=== PATIENT | female | born 1975 | race Caucasian/White ===

== ENCOUNTER → 2017-06-09 09:17 | Outpatient (CLI) | payer OTHER, SELFPAY ==
[2017-06-09 09:36] LABS: Red Blood Cells-Urine 0 SEEN /hpf (0-5)
[2017-06-09 09:50] LABS: Absolute Lymphocyte Count 2.37 X10^3/ul (0.83-4.51); Basophil# 0.04 X10^3/uL; Basophil% 0.6 % (0-1); Eosinophil# 0.11 X10^3/uL; Eosinophils% 1.8 % (0-5); Hematocrit 40.2 % (37-47); Hemoglobin 13.5 g/dl (12.0-15.0); Lymphocyte # 2.37 X10^3/ul (4.0); Lymphocyte % 38.5 % (19-41); Mean Corp Hgb Conc 33.6 g/gl (32-36); Mean Corpuscular Hgb 30.5 pg (27.0-32.0); Mean Corpuscular Volume 90.7 fL (81-99); Mean Platelet Vol. 10.5 fl (6.2-12.0); Monocyte# 0.65 X10^3/uL; Monocyte% 10.6 % (0-10); Neutrophil # 2.95 X10^3/uL (2.7-7.7); Neutrophil % 47.9 % (47-70); Platelet Count 283 K/mm3 (150-450); RBC Distribution Width CV 12.3 % (11.6-14.6); RBC Distribution Width SD 40.5 fl (35.1-43.9); Red Blood Count 4.43 M/mm3 (4.2-5.4); White Blood Count 6.2 K/mm3 (4.4-11.0)
[2017-06-09 10:03] LABS: POSITIVE COUNT NO; POSITIVE DIFFERENTIAL NO; POSITIVE MORPHOLOGY NO
[2017-06-09 10:34] LABS: ALB/GLOB Ratio 1.2 RATIO (0.9-2.4); AST(SGOT) 11 U/L (15-37); Alanine Aminotransfer ALT/SGPT 16 U/L (13-56); Albumin, Serum 4.3 g/dL (3.2-5.0); Alkaline Phosphatase 65 U/L (45-117); Anion Gap 7 (5-15); BUN 13 mg/dL (7-18); BUN/Creat Ratio 16.1 RATIO (10-20); CRP < 2.90 mg/L (0.0-3.0); Calcium,Total 8.8 mg/dL (8.5-10.1); Chloride 105 mmol/L (98-107); Creatinine, Serum 0.81 mg/dL (0.55-1.02); EST Glomerular Filtration Rate 82 mL/min (>60); Est Glom Filt Rate - Afr Amer 99 mL/min (>60); Globulin 3.7 g/dL (2.2-4.2); Glucose 65 mg/dL (74-106); Potassium 3.8 mmol/L (3.5-5.1); Sodium Level 140 mmol/L (136-145)
[2017-06-09 11:26] LABS: Color, Urine Yellow (Yellow); Glucose, Dipstick Normal (Normal); Ketone-Dipstick Negative (Negative); Leukocyte Esterase-Dipstick 25 /ul (Negative); Nitrite-Dipstick Negative (Negative); Occult Blood-Urine Negative /ul (Negative); Protein-Dipstick Negative (Negative); Specific Gravity, Urine 1.025 (1.002-1.030); Urine Bilirubin Dipstick Negative (Negative); Urine Clarity Clear (Clear); Urine Urobilinogen Normal (Normal)
[2017-06-09 11:32] LABS: Bacteria 1+ /hpf (None Seen); Mucous, Urine 3+ /hpf (<or=2+); Squamous Epithelial Cells - UA 5-10 SEEN /hpf (5-10); White Blood Cells 0-5 SEEN /hpf (0-5)
[2017-06-10 12:07] LABS: Complement C3 109 mg/dL (82-167)
== END ==
PROVIDERS: Psychiatry & Neurology Sleep Medicine; Family Provider Internal Medicine Adolescent Medicine; PCP Internal Medicine Adolescent Medicine; Visit Provider Internal Medicine Rheumatology
DX: M35.1 Other overlap syndromes (principal); G35 Multiple sclerosis
CPT/HCPCS: 80053; 81001; 85025; 86140; 86160

== ENCOUNTER → 2017-08-04 15:30 | Outpatient (CLI) | payer OTHER, SELFPAY ==
--- NOTE | 2017-08-04 15:40 | MRI_ITS ---
STUDY: MRI BRAIN WITH AND WITHOUT CONTRAST REASON FOR EXAM: Female, 42 years old. Multiple sclerosis TECHNIQUE: Standardized multiplanar fat and water weighted pulse sequences were obtained. 6ml ml of Gadavist contrast material was administered intravenously for the contrast portion of the examination. COMPARISON: January 13, 2017 FINDINGS: Normal size of the ventricles and extra-axial spaces for the patient's age. There is very minor increased signal intensity within the periventricular white matter in the frontal and parieto-occipital regions with involvement of the corpus callosum consistent with multiple sclerosis... Normal bilateral basal ganglia. Normal thalami. There is no extra-axial fluid accumulation. Normal flow voids within the major intracranial circulation suggesting patency by spin echo criteria. Normal venous enhancement. There is no enhancing intra-axial or extra-axial abnormality. Normal sella turcica, pituitary gland, infundibular stalk, optic chiasm and hypothalamus. Normal tectal plate and pineal gland. Normal midbrain, edie and medulla. Normal cerebellum. Normal basal cisterns. Normal bilateral temporal bones. Normal bilateral internal auditory canals. No demonstrated orbital abnormality, within the constraints of a routine brain study. Normal visualized paranasal sinuses. Normal calvarium and skull base. Normal visualized soft tissue structures. Normal visualized upper cervical spine. Findings are stable since prior study MRI/Brain W/WO Contrast IMPRESSION: Findings which may be consistent with mild multiple sclerosis without evidence for actively demyelinating plaque and stable since previous study Electronically Signed: Wesley Bello MD at 17:12 EDT , Service support ,
== END ==
PROVIDERS: Family Provider Internal Medicine Adolescent Medicine; PCP Internal Medicine Adolescent Medicine; Visit Provider Psychiatry & Neurology Sleep Medicine
DX: G35 Multiple sclerosis (principal)
CPT/HCPCS: 70553; A9585

== ENCOUNTER → 2017-09-25 11:29 | Outpatient (CLI) | payer OTHER, SELFPAY ==
[2017-09-25 13:34] LABS: Absolute Lymphocyte Count 2.33 X10^3/ul (0.83-4.51); Absolute Neutrophil Count 3.9 X10^3/uL (2.0-7.7); Basophil# 0.03 X10^3/uL; Basophil% 0.4 % (0-1); Eosinophil# 0.11 X10^3/uL; Eosinophils% 1.5 % (0-5); Hematocrit 39.5 % (37-47); Hemoglobin 13.5 g/dl (12.0-15.0); Lymphocyte # 2.33 X10^3/ul (4.0); Lymphocyte % 32.4 % (19-41); Mean Corp Hgb Conc 34.2 g/gl (32-36); Mean Corpuscular Volume 90.8 fL (81-99); Mean Platelet Vol. 10.2 fl (6.2-12.0); Monocyte# 0.79 X10^3/uL; Neutrophil # 3.87 X10^3/uL (2.7-7.7); Neutrophil % 53.9 % (47-70); Platelet Count 284 K/mm3 (150-450); RBC Distribution Width CV 12.3 % (11.6-14.6); RBC Distribution Width SD 40.8 fl (35.1-43.9); Red Blood Count 4.35 M/mm3 (4.2-5.4); White Blood Count 7.2 K/mm3 (4.4-11.0)
[2017-09-25 13:35] LABS: POSITIVE COUNT NO; POSITIVE DIFFERENTIAL NO; POSITIVE MORPHOLOGY NO
[2017-09-25 13:59] LABS: ALB/GLOB Ratio 1.1 RATIO (0.9-2.4); AST(SGOT) 12 U/L (15-37); Alanine Aminotransfer ALT/SGPT 18 U/L (13-56); Albumin, Serum 4.2 g/dL (3.2-5.0); Alkaline Phosphatase 67 U/L (45-117); Anion Gap 8 (5-15); BUN 15 mg/dL (7-18); BUN/Creat Ratio 19.2 RATIO (10-20); Calcium,Total 8.3 mg/dL (8.5-10.1); Chloride 105 mmol/L (98-107); Creatinine, Serum 0.78 mg/dL (0.55-1.02); EST Glomerular Filtration Rate 85 mL/min (>60); Est Glom Filt Rate - Afr Amer 103 mL/min (>60); Globulin 3.7 g/dL (2.2-4.2); Glucose 72 mg/dL (74-106); Potassium 3.6 mmol/L (3.5-5.1); Protein, Total 7.9 g/dL (6.4-8.2); Sodium Level 141 mmol/L (136-145)
== END ==
PROVIDERS: Family Provider Internal Medicine Adolescent Medicine; PCP Internal Medicine Adolescent Medicine; Visit Provider Psychiatry & Neurology Sleep Medicine
DX: G35 Multiple sclerosis (principal)
CPT/HCPCS: 36415; 80053; 85025

== ENCOUNTER → 2018-01-13 08:13 | Outpatient (CLI) | payer OTHER, SELFPAY ==
[2018-01-13 09:12] LABS: Absolute Lymphocyte Count 2.16 X10^3/ul (0.83-4.51); Absolute Neutrophil Count 2.5 X10^3/uL (2.0-7.7); Basophil# 0.03 X10^3/uL; Basophil% 0.5 % (0-1); Eosinophil# 0.18 X10^3/uL; Eosinophils% 3.1 % (0-5); Hematocrit 41.3 % (37-47); Hemoglobin 13.8 g/dl (12.0-15.0); Lymphocyte # 2.16 X10^3/ul (4.0); Lymphocyte % 37.7 % (19-41); Mean Corp Hgb Conc 33.4 g/gl (32-36); Mean Corpuscular Hgb 30.7 pg (27.0-32.0); Mean Corpuscular Volume 91.8 fL (81-99); Mean Platelet Vol. 10.2 fl (6.2-12.0); Neutrophil # 2.52 X10^3/uL (2.7-7.7); Platelet Count 284 K/mm3 (150-450); RBC Distribution Width CV 12.5 % (11.6-14.6); RBC Distribution Width SD 42.1 fl (35.1-43.9); White Blood Count 5.7 K/mm3 (4.4-11.0)
[2018-01-13 09:14] LABS: POSITIVE COUNT NO; POSITIVE DIFFERENTIAL NO; POSITIVE MORPHOLOGY NO
[2018-01-13 09:19] LABS: ALB/GLOB Ratio 1.1 RATIO (0.9-2.4); AST(SGOT) 13 U/L (15-37); Alanine Aminotransfer ALT/SGPT 17 U/L (13-56); Alkaline Phosphatase 58 U/L (45-117); Anion Gap 6 (5-15); BUN 15 mg/dL (7-18); BUN/Creat Ratio 18.3 RATIO (10-20); Calcium,Total 8.9 mg/dL (8.5-10.1); Chloride 106 mmol/L (98-107); Creatinine, Serum 0.82 mg/dL (0.55-1.02); EST Glomerular Filtration Rate 80 mL/min (>60); Est Glom Filt Rate - Afr Amer 97 mL/min (>60); Globulin 3.5 g/dL (2.2-4.2); Glucose 77 mg/dL (74-106); Protein, Total 7.5 g/dL (6.4-8.2); Sodium Level 139 mmol/L (136-145)
== END ==
PROVIDERS: Family Provider Internal Medicine Adolescent Medicine; PCP Internal Medicine Adolescent Medicine; Visit Provider Psychiatry & Neurology Sleep Medicine
DX: G35 Multiple sclerosis (principal)
CPT/HCPCS: 36415; 80053; 85025

== ENCOUNTER → 2018-01-24 15:35 | Outpatient (CLI) | payer OTHER, SELFPAY ==
--- NOTE | 2018-01-24 15:37 | MRI_ITS ---
STUDY: MRI BRAIN WITH AND WITHOUT CONTRAST REASON FOR EXAM: Female, 42 years old. Multiple sclerosis TECHNIQUE: Standardized multiplanar fat and water weighted pulse sequences were obtained. 6 ml of Gadavist contrast material was administered intravenously for the contrast portion of the examination. COMPARISON: August 04, 2017 FINDINGS: Normal size of the ventricles and extra-axial spaces for the patient's age. There is subtle demyelinating disease within the periventricular white matter consistent with known multiple sclerosis. There are no enhancing plaques to suggest acute demyelination Normal bilateral basal ganglia. Normal thalami. There is no extra-axial fluid accumulation. Normal flow voids within the major intracranial circulation suggesting patency by spin echo criteria. Normal venous enhancement. Normal sella turcica, pituitary gland, infundibular stalk, optic chiasm and hypothalamus. Normal tectal plate and pineal gland. Normal midbrain, edie and medulla. Normal cerebellum. Normal basal cisterns. Normal bilateral temporal bones. Normal bilateral internal auditory canals. No demonstrated orbital abnormality, within the constraints of a routine brain study. Normal visualized paranasal sinuses. Normal calvarium and skull base. Normal visualized soft tissue structures. Normal visualized upper cervical spine. Findings are stable when compared with prior exam MRI/Brain W/WO Contrast IMPRESSION: Minor white matter changes consistent with multiple sclerosis which is stable since prior exam No enhancing plaque to suggest acute demyelination Electronically Signed: Wesley Bello MD at 17:40 EDT , Service support ,
== END ==
PROVIDERS: Family Provider Internal Medicine Adolescent Medicine; PCP Internal Medicine Adolescent Medicine; Referring Provider Psychiatry & Neurology Sleep Medicine; Visit Provider Psychiatry & Neurology Sleep Medicine
DX: G35 Multiple sclerosis (principal)
CPT/HCPCS: 70553; A9585

== ENCOUNTER → 2018-03-18 16:08 | Outpatient (CLI) | payer OTHER, SELFPAY ==
[2018-03-24 16:07] LABS: HPV Reflexed? NOT INDICATED
== END ==
PROVIDERS: Visit Provider Obstetrics & Gynecology
DX: Z12.4 Encounter for screening for malignant neoplasm of cervix (principal)
CPT/HCPCS: 88175; G0145

== ENCOUNTER → 2018-04-12 08:58 | Outpatient (CLI) | payer OTHER, SELFPAY ==
[2018-04-12 09:43] LABS: Absolute Lymphocyte Count 2.47 X10^3/ul (0.83-4.51); Absolute Neutrophil Count 2.8 X10^3/uL (2.0-7.7); Basophil# 0.03 X10^3/uL; Basophil% 0.5 % (0-1); Eosinophil# 0.14 X10^3/uL; Eosinophils% 2.2 % (0-5); Hematocrit 39.2 % (37-47); Hemoglobin 12.7 g/dl (12.0-15.0); Lymphocyte # 2.47 X10^3/ul (4.0); Lymphocyte % 39.6 % (19-41); Mean Corp Hgb Conc 32.4 g/gl (32-36); Mean Corpuscular Hgb 29.7 pg (27.0-32.0); Mean Corpuscular Volume 91.6 fL (81-99); Mean Platelet Vol. 9.9 fl (6.2-12.0); Monocyte# 0.75 X10^3/uL; Neutrophil # 2.79 X10^3/uL (2.7-7.7); Neutrophil % 44.7 % (47-70); Platelet Count 282 K/mm3 (150-450); RBC Distribution Width CV 12.8 % (11.6-14.6); RBC Distribution Width SD 42.8 fl (35.1-43.9); Red Blood Count 4.28 M/mm3 (4.2-5.4); White Blood Count 6.2 K/mm3 (4.4-11.0)
[2018-04-12 09:44] LABS: POSITIVE COUNT NO; POSITIVE DIFFERENTIAL NO; POSITIVE MORPHOLOGY NO
[2018-04-12 09:54] LABS: ALB/GLOB Ratio 1.2 RATIO (0.9-2.4); AST(SGOT) 14 U/L (15-37); Alanine Aminotransfer ALT/SGPT 18 U/L (13-56); Alkaline Phosphatase 58 U/L (45-117); Anion Gap 7 (5-15); BUN 11 mg/dL (7-18); BUN/Creat Ratio 13.3 RATIO (10-20); Calcium,Total 8.4 mg/dL (8.5-10.1); Chloride 108 mmol/L (98-107); Creatinine, Serum 0.83 mg/dL (0.55-1.02); EST Glomerular Filtration Rate 79 mL/min (>60); Est Glom Filt Rate - Afr Amer 96 mL/min (>60); Globulin 3.4 g/dL (2.2-4.2); Glucose 79 mg/dL (74-106); Protein, Total 7.4 g/dL (6.4-8.2); Sodium Level 140 mmol/L (136-145)
== END ==
PROVIDERS: PCP Internal Medicine Adolescent Medicine; Visit Provider Psychiatry & Neurology Sleep Medicine
DX: G35 Multiple sclerosis (principal)
CPT/HCPCS: 36415; 80053; 85025

== ENCOUNTER → 2018-07-06 09:00 | Outpatient (CLI) | payer OTHER, SELFPAY ==
[2018-07-06 11:01] LABS: Absolute Lymphocyte Count 2.13 X10^3/ul (0.83-4.51); Absolute Neutrophil Count 2.6 X10^3/uL (2.0-7.7); Basophil# 0.04 X10^3/uL; Basophil% 0.7 % (0-1); Eosinophil# 0.12 X10^3/uL; Eosinophils% 2.1 % (0-5); Hematocrit 37.6 % (37-47); Hemoglobin 12.4 g/dl (12.0-15.0); Lymphocyte # 2.13 X10^3/ul (4.0); Lymphocyte % 37.2 % (19-41); Mean Corpuscular Hgb 30.2 pg (27.0-32.0); Mean Corpuscular Volume 91.7 fL (81-99); Mean Platelet Vol. 10.8 fl (6.2-12.0); Monocyte# 0.83 X10^3/uL; Monocyte% 14.5 % (0-10); Neutrophil # 2.57 X10^3/uL (2.7-7.7); Neutrophil % 44.8 % (47-70); Platelet Count 344 K/mm3 (150-450); RBC Distribution Width CV 13.1 % (11.6-14.6); RBC Distribution Width SD 43.6 fl (35.1-43.9); White Blood Count 5.7 K/mm3 (4.4-11.0)
[2018-07-06 11:02] LABS: POSITIVE COUNT NO; POSITIVE DIFFERENTIAL NO; POSITIVE MORPHOLOGY NO
[2018-07-06 11:11] LABS: ALB/GLOB Ratio 1.3 RATIO (0.9-2.4); AST(SGOT) 15 U/L (15-37); Alanine Aminotransfer ALT/SGPT 17 U/L (13-56); Albumin, Serum 4.1 g/dL (3.2-5.0); Alkaline Phosphatase 64 U/L (45-117); Anion Gap 3 (5-15); BUN 14 mg/dL (7-18); BUN/Creat Ratio 16.6 RATIO (10-20); Calcium,Total 8.3 mg/dL (8.5-10.1); Chloride 111 mmol/L (98-107); Creatinine, Serum 0.84 mg/dL (0.55-1.02); EST Glomerular Filtration Rate 78 mL/min (>60); Est Glom Filt Rate - Afr Amer 94 mL/min (>60); Globulin 3.1 g/dL (2.2-4.2); Glucose 73 mg/dL (74-106); Potassium 3.9 mmol/L (3.5-5.1); Protein, Total 7.2 g/dL (6.4-8.2); Sodium Level 141 mmol/L (136-145)
== END ==
LOC: LABSPEC 09:47 → LAB 09:55
PROVIDERS: Referring Provider Psychiatry & Neurology Sleep Medicine; Visit Provider Psychiatry & Neurology Sleep Medicine
DX: G35 Multiple sclerosis (principal)
CPT/HCPCS: 36415; 80053; 85025

== ENCOUNTER → 2018-07-28 15:31 | Outpatient (CLI) | payer OTHER, SELFPAY ==
--- NOTE | 2018-07-28 15:40 | MRI_ITS ---
STUDY: MRI BRAIN WITH AND WITHOUT CONTRAST REASON FOR EXAM: Female, 43 years old. MS TECHNIQUE: Standardized multiplanar fat and water weighted pulse sequences were obtained. 10 IV Dotarem was administered for the contrast portion of the examination. COMPARISON: 01/24/2018 FINDINGS: Normal size of the ventricles and extra-axial spaces for the patient's age. Stable minimal white matter disease. Normal bilateral basal ganglia. Normal thalami. There is no extra-axial fluid accumulation. Normal flow voids within the major intracranial circulation suggesting patency by spin echo criteria. Normal venous enhancement. There is no enhancing intra-axial or extra-axial abnormality. Normal sella turcica, pituitary gland, infundibular stalk, optic chiasm and hypothalamus. Normal tectal plate and pineal gland. Normal midbrain, edie and medulla. Normal cerebellum. Normal basal cisterns. Normal bilateral temporal bones. Normal bilateral internal auditory canals. No demonstrated orbital abnormality, within the constraints of a routine brain study. Normal visualized paranasal sinuses. Normal calvarium and skull base. Normal visualized soft tissue structures. Normal visualized upper cervical spine. MRI/Brain W/WO Contrast IMPRESSION: Stable minimal white matter disease. No new white matter lesions are seen. No restricted diffusion or abnormal enhancement. Electronically Signed: Anderson Delaney MD at 18:27 EDT Tel , Service support ,
== END ==
PROVIDERS: Family Provider Internal Medicine Adolescent Medicine; PCP Internal Medicine Adolescent Medicine; Referring Provider Psychiatry & Neurology Sleep Medicine; Visit Provider Psychiatry & Neurology Sleep Medicine
DX: G35 Multiple sclerosis (principal)
CPT/HCPCS: 70553; A9575

== ENCOUNTER → 2018-10-25 11:28 | Outpatient (CLI) | payer OTHER, SELFPAY ==
[2018-10-25 13:54] LABS: Absolute Lymphocyte Count 2.61 X10^3/uL (0.83-4.51); Absolute Neutrophil Count 3.2 X10^3/uL (2.0-7.7); Basophil# 0.04 X10^3/uL; Basophil% 0.6 % (0-1); Eosinophil# 0.13 X10^3/uL; Eosinophils% 1.9 % (0-5); Hematocrit 38.2 % (37-47); Hemoglobin 12.7 g/dL (12.0-15.0); Lymphocyte # 2.61 X10^3/ul (4.0); Lymphocyte % 37.4 % (19-41); Mean Corp Hgb Conc 33.2 g/dL (32-36); Mean Corpuscular Volume 93.2 fL (81-99); Mean Platelet Vol. 9.8 fl (6.2-12.0); Monocyte# 0.91 X10^3/uL; Monocyte% 13.1 % (0-10); NRBC Flagged by Analyzer 0.3 % (0-5); Neutrophil # 3.23 X10^3/uL (2.7-7.7); Neutrophil % 46.3 % (47-70); Platelet Count 271 K/mm3 (150-450); RBC Distribution Width CV 12.4 % (11.6-14.6); RBC Distribution Width SD 42.6 fl (35.1-43.9)
[2018-10-25 14:20] LABS: ALB/GLOB Ratio 1.1 RATIO (0.9-2.4); AST(SGOT) 15 U/L (15-37); Alanine Aminotransfer ALT/SGPT 20 U/L (13-56); Alkaline Phosphatase 69 U/L (45-117); Anion Gap 7 (5-15); BUN 20 mg/dL (7-18); BUN/Creat Ratio 23.8 RATIO (10-20); Calcium,Total 9.1 mg/dL (8.5-10.1); Chloride 108 mmol/L (98-107); Creatinine, Serum 0.84 mg/dL (0.55-1.02); EST Glomerular Filtration Rate 78 mL/min (>60); Est Glom Filt Rate - Afr Amer 94 mL/min (>60); Globulin 3.5 g/dL (2.2-4.2); Glucose 71 mg/dL (74-106); Potassium 3.6 mmol/L (3.5-5.1); Protein, Total 7.5 g/dL (6.4-8.2); Sodium Level 143 mmol/L (136-145)
== END ==
PROVIDERS: Visit Provider Psychiatry & Neurology Sleep Medicine
DX: G35 Multiple sclerosis (principal)
CPT/HCPCS: 36415; 80053; 85025

== ENCOUNTER → 2018-12-14 09:49 | Outpatient (CLI) | payer OTHER, SELFPAY ==
[2018-12-14 10:42] LABS: Absolute Neutrophil Count 3.8 X10^3/uL (2.0-7.7); Basophil# 0.05 X10^3/uL; Basophil% 0.7 % (0-1); Eosinophil# 0.12 X10^3/uL; Eosinophils% 1.7 % (0-5); Hematocrit 41.2 % (37-47); Hemoglobin 13.2 g/dL (12.0-15.0); Lymphocyte % 30.9 % (19-41); Mean Corpuscular Volume 93.6 fL (81-99); Mean Platelet Vol. 10.2 fl (6.2-12.0); Monocyte# 0.88 X10^3/uL; Monocyte% 12.4 % (0-10); NRBC Flagged by Analyzer 0 % (0-5); Neutrophil # 3.79 X10^3/uL (2.7-7.7); Neutrophil % 53.2 % (47-70); Platelet Count 322 K/mm3 (150-450); RBC Distribution Width CV 12.2 % (11.6-14.6); RBC Distribution Width SD 42.4 fl (35.1-43.9); White Blood Count 7.1 K/mm3 (4.4-11.0)
[2018-12-14 11:02] LABS: AST(SGOT) 21 U/L (15-37); Alanine Aminotransfer ALT/SGPT 20 U/L (13-56); Albumin, Serum 4.1 g/dL (3.2-5.0); BUN 13 mg/dL (7-18); CRP < 2.90 mg/L (0.0-3.0); Creatinine, Serum 0.84 mg/dL (0.55-1.02); EST Glomerular Filtration Rate 77 mL/min (>60); Est Glom Filt Rate - Afr Amer 94 mL/min (>60)
[2018-12-14 11:40] LABS: Bacteria 0 SEEN /hpf (None Seen); Color, Urine Yellow (Yellow); Glucose, Dipstick Normal (Normal); Ketone-Dipstick Negative (Negative); Leukocyte Esterase-Dipstick Negative /ul (Negative); Mucous, Urine 0 SEEN /hpf (<or=2+); Nitrite-Dipstick Negative (Negative); Occult Blood-Urine Negative /ul (Negative); Protein-Dipstick Negative (Negative); Red Blood Cells-Urine 0 SEEN /hpf (0-5); Urine Bilirubin Dipstick Negative (Negative); Urine Clarity Sl. Cloudy (Clear); Urine Urobilinogen Normal (Normal); White Blood Cells 0 SEEN /hpf (0-5)
[2018-12-14 11:46] LABS: Squamous Epithelial Cells - UA 5-10 SEEN /hpf (5-10)
[2018-12-15 20:07] LABS: Anti-Scleroderma-70 AB <0.2 AI (0.0-0.9); RNP Ab 0.2 AI (0.0-0.9); SJOGREN'S Anti-SS-A test 5.1 AI (0.0-0.9); SJOGREN'S Anti-SS-B test < 0.2 AI (0.0-0.9); Smith Ab <0.2 AI (0.0-0.9)
[2018-12-16 16:08] LABS: Complement C3 105 mg/dL (82-167)
[2018-12-16 16:29] LABS: ANTINUCLEAR ANTIBODIES DIRECT Positive (Negative); Anti-Mitochondrial AB <20.0 Units (0.0-20.0); Anti-dsDNA Ab 2 IU/mL (0-9)
[2018-12-17 10:12] LABS: Anti-Parietal Cell AB, QN 18.9 Units (0.0-20.0); Anti-Smooth Muscle ABS 15 Units (0-19); CCP IgG Antibodies 5 units (0-19); Thyroid Peroxidase AB 10 IU/mL (0-34)
== END ==
PROVIDERS: Visit Provider Internal Medicine Rheumatology
DX: M35.1 Other overlap syndromes (principal)
CPT/HCPCS: 36415; 81001; 82040; 82565; 83516; 84450; 84460; 84520; 85025; 86038; 86140; 86160; 86200; 86225; 86235; 86376

== ENCOUNTER → 2018-12-21 15:37 | Outpatient (CLI) | payer OTHER, SELFPAY ==
--- NOTE | 2018-12-21 15:45 | RAD_ITS ---
STUDY: X-RAY - BILATERAL KNEES REASON FOR EXAM: Female, 43 years old. Overlap syndrome TECHNIQUE: 1 AP view(s) of the bilateral knees were obtained including AP standing weight-bearing views. COMPARISON: Right knee, December 21, 2018. FINDINGS - RIGHT KNEE: Normal visualized right distal femur. Normal visualized proximal right tibia and fibula. Normal right proximal tibiofibular articulation. There is no visualized fracture or dislocation. Normal appearing patella. Normal medial femorotibial compartment of the right knee. Normal lateral femorotibial compartment of the right knee. The soft tissue structures are unremarkable. FINDING - LEFT KNEE: Normal visualized left distal femur. Normal visualized proximal left tibia and fibula. Normal appearing patella. Normal left proximal tibiofibular articulation. No acute fracture or dislocation. Normal medial femorotibial compartment of the left knee. Normal lateral femorotibial compartment of the left knee. The soft tissue structures are unremarkable. RAD/Knees Standing AP Bilateral IMPRESSION: Normal x-ray examination of the bilateral knees. Electronically Signed: Jamie Chester DO at 16:36 EDT Tel [phone], Service support ,
--- NOTE | 2018-12-21 15:55 | RAD_ITS ---
STUDY: X-RAY - RIGHT KNEE REASON FOR EXAM: Female, 43 years old. Overlap syndrome. TECHNIQUE: AP and lateral weightbearing view(s) of the knee. COMPARISON: None. FINDINGS: Normal visualized distal femur. Normal visualized proximal tibia and fibula. Normal proximal tibiofibular articulation. There is no acute fracture, dislocation or destructive osseous pathology. Normal medial femorotibial compartment. Normal lateral femorotibial compartment. Normal patellofemoral articulation. There is no demonstrated joint effusion. The soft tissue structures are unremarkable. RAD/Knee 1 or 2 Views IMPRESSION: Normal x-ray examination of the knee. Electronically Signed: Jamie Chester DO at 16:15 EDT Tel [phone], Service support ,
== END ==
PROVIDERS: Referring Provider Internal Medicine Rheumatology; Visit Provider Internal Medicine Rheumatology
DX: M35.1 Other overlap syndromes (principal)
CPT/HCPCS: 73560; 73565

== ENCOUNTER → 2019-01-11 15:15 | Outpatient (CLI) | payer OTHER, SELFPAY ==
--- NOTE | 2019-01-11 15:17 | MRI_ITS ---
STUDY: MRI BRAIN WITH AND WITHOUT CONTRAST REASON FOR EXAM: Female, 43 years old. Multiple sclerosis follow-up TECHNIQUE: Standardized multiplanar fat and water weighted pulse sequences were obtained. IV Dotarem 10 was administered for the contrast portion of the examination. COMPARISON: July 28, 2018 FINDINGS: Normal size of the ventricles and extra-axial spaces for the patient's age. There is minimal periventricular white matter disease slightly greater on the left consistent with known multiple sclerosis. Normal bilateral basal ganglia. Normal thalami. There is no extra-axial fluid accumulation. Normal flow voids within the major intracranial circulation suggesting patency by spin echo criteria. Normal venous enhancement. There is no enhancing intra-axial or extra-axial abnormality. Normal sella turcica, pituitary gland, infundibular stalk, optic chiasm and hypothalamus. Normal tectal plate and pineal gland. Normal midbrain, edie and medulla. Normal cerebellum. Normal basal cisterns. Normal bilateral temporal bones. Normal bilateral internal auditory canals. No demonstrated orbital abnormality, within the constraints of a routine brain study. Normal visualized paranasal sinuses. Normal calvarium and skull base. Normal visualized soft tissue structures. Normal visualized upper cervical spine. No significant change since prior exam MRI/Brain W/WO Contrast IMPRESSION: Stable appearance to minimal periventricular white matter disease consistent with known multiple sclerosis. No enhancing plaque to suggest acute demyelination Electronically Signed: Wesley Bello MD at 16:40 EDT , Service support ,
== END ==
PROVIDERS: Referring Provider Psychiatry & Neurology Sleep Medicine; Visit Provider Psychiatry & Neurology Sleep Medicine
DX: G35 Multiple sclerosis (principal)
CPT/HCPCS: 70553; A9575

== ENCOUNTER → 2019-01-17 10:51 | Outpatient (CLI) | payer OTHER, SELFPAY ==
[2019-01-19 08:50] LABS: Absolute Lymphocyte Count 2.02 X10^3/uL (0.83-4.51); Basophil# 0.06 X10^3/uL; Eosinophil# 0.13 X10^3/uL; Eosinophils% 2.1 % (0-5); Hematocrit 41.1 % (37-47); Hemoglobin 13.5 g/dL (12.0-15.0); Lymphocyte # 2.02 X10^3/ul (4.0); Mean Corp Hgb Conc 32.8 g/dL (32-36); Mean Corpuscular Hgb 30.5 pg (27.0-32.0); Mean Platelet Vol. 9.8 fl (6.2-12.0); Monocyte# 1.04 X10^3/uL; Monocyte% 16.5 % (0-10); NRBC Flagged by Analyzer 0 % (0-5); Neutrophil # 2.99 X10^3/uL (2.7-7.7); Neutrophil % 47.3 % (47-70); Platelet Count 286 K/mm3 (150-450); RBC Distribution Width CV 12.3 % (11.6-14.6); RBC Distribution Width SD 42.5 fl (35.1-43.9); Red Blood Count 4.42 M/mm3 (4.2-5.4); White Blood Count 6.3 K/mm3 (4.4-11.0)
[2019-01-19 08:55] LABS: Absolute Lymphocyte Count 2.02 X10^3/uL (0.83-4.51); Eosinophils% 2.1 % (0-5); Hematocrit 41.1 % (37-47); Hemoglobin 13.5 g/dL (12.0-15.0); Lymphocyte # 2.02 X10^3/ul; Mean Corp Hgb Conc 32.8 g/dL (32-36); Mean Corpuscular Hgb 30.5 pg (27.0-32.0); Mean Platelet Vol. 9.8 fl (6.2-12.0); Monocyte% 16.5 % (0-10); Neutrophil % 47.3 % (47-70); Platelet Count 286 K/mm3 (150-450); RBC Distribution Width CV 12.3 % (11.6-14.6); RBC Distribution Width SD 42.5 fl (35.1-43.9); Red Blood Count 4.42 M/mm3 (4.2-5.4); White Blood Count 6.3 K/mm3 (4.4-11.0)
[2019-01-19 09:03] LABS: Color, Urine Yellow (Yellow); Glucose, Dipstick Normal (Normal); Ketone-Dipstick Negative (Negative); Leukocyte Esterase-Dipstick Negative /ul (Negative); Nitrite-Dipstick Negative (Negative); Occult Blood-Urine Negative /ul (Negative); Protein-Dipstick Negative (Negative); Specific Gravity, Urine 1.015 (1.002-1.030); Urine Bilirubin Dipstick Negative (Negative); Urine Clarity Clear (Clear); Urine Urobilinogen Normal (Normal)
[2019-01-19 09:19] LABS: ALB/GLOB Ratio 1.2 RATIO (0.9-2.4); AST(SGOT) 18 U/L (15-37); Alanine Aminotransfer ALT/SGPT 19 U/L (13-56); Albumin, Serum 4.2 g/dL (3.2-5.0); Alkaline Phosphatase 60 U/L (45-117); Anion Gap 6 (5-15); BUN 15 mg/dL (7-18); BUN/Creat Ratio 17.2 RATIO (10-20); Calcium,Total 9.1 mg/dL (8.5-10.1); Chloride 105 mmol/L (98-107); Creatinine, Serum 0.87 mg/dL (0.55-1.02); EST Glomerular Filtration Rate 74 mL/min (>60); Est Glom Filt Rate - Afr Amer 90 mL/min (>60); Globulin 3.6 g/dL (2.2-4.2); Glucose 75 mg/dL (74-106); Potassium 4.1 mmol/L (3.5-5.1); Protein, Total 7.8 g/dL (6.4-8.2); Sodium Level 139 mmol/L (136-145)
[2019-01-19 09:45] LABS: ALB/GLOB Ratio 1.2 RATIO (0.9-2.4); AST(SGOT) 18 U/L (15-37); Alanine Aminotransfer ALT/SGPT 19 U/L (13-56); Albumin, Serum 4.2 g/dL (3.2-5.0); Alkaline Phosphatase 60 U/L (45-117); BUN 15 mg/dL (7-18); BUN/Creat Ratio 17.2 RATIO (10-20); Calcium,Total 9.1 mg/dL (8.5-10.1); Cholesterol 140 mg/dL (200); Creatinine, Serum 0.87 mg/dL (0.55-1.02); EST Glomerular Filtration Rate 75 mL/min (>60); Est Glom Filt Rate - Afr Amer 91 mL/min (>60); Globulin 3.6 g/dL (2.2-4.2); Glucose 75 mg/dL (74-106); Phosphorus 3.5 mg/dL (2.5-4.9); Protein, Total 7.8 g/dL (6.4-8.2); Uric Acid 3.3 mg/dL (2.6-6.0)
[2019-01-19 09:46] LABS: Anion Gap 6 (5-15); Chloride 105 mmol/L (98-107); High Density Lipoprotein 69 mg/dL; LDH 216 U/L (84-246); Potassium 4.1 mmol/L (3.5-5.1); Sodium Level 139 mmol/L (136-145); Triglycerides 76 mg/dL; Very Low Density Lipoprotein 15 mg/dL (5-40); cholesterol:hdl ratio screen 2.02
== END ==
PROVIDERS: Visit Provider Psychiatry & Neurology Sleep Medicine
DX: G35 Multiple sclerosis (principal)
CPT/HCPCS: 36415; 80053; 85025; 87798

== ENCOUNTER → 2019-02-28 15:29 | Outpatient (CLI) | payer OTHER, SELFPAY ==
--- NOTE | 2019-02-28 15:40 | MRI_ITS ---
STUDY: MRI RIGHT SHOULDER REASON FOR EXAM: Female, 43 years old. TECHNIQUE: Standardized fat and water weighted pulse sequences were obtained in all 3 orthogonal planes. COMPARISON: None. FINDINGS: Normal supraspinatus tendon. Normal infraspinatus tendon. Normal subscapularis tendon. Normal teres minor tendon. Proximal muscles of the rotator cuff are unremarkable. Marrow signal is normal. No fracture, bone contusion, or osteonecrosis. Normal glenohumeral articulation. Normal biceps labral complex. Normal intracapsular long biceps tendon. Normal labrum. Normal rotator interval. Normal acromioclavicular articulation. There is a Type II morphology (curved), with lateral downsloping. Trace subdeltoid-subacromial bursal fluid consistent with bursitis. Normal visualized coracohumeral and coracoacromial ligaments. MRI/Upper Ext Joint Only(Routine) IMPRESSION: 1. No evidence of rotator cuff or labral tear. 2. Trace subdeltoid-subacromial bursal fluid consistent with bursitis. Electronically Signed: Maria M Castro MD at 23:49 EST Tel , Service support ,
== END ==
DX: M25.511 Pain in right shoulder (principal)
CPT/HCPCS: 73221

== ENCOUNTER → 2019-03-23 | Outpatient (CLI) | payer OTHER, SELFPAY ==
[2019-03-28 06:07] LABS: Age Gdln ACOG Testing 30-65 (.)
[2019-03-28 15:34] LABS: HPV APTIMA, High Risk Negative (Negative); HPV Reflexed? YES, CHARGE PATIENT
== END | disposition home or self-care (01) ==
LOC: LABSPEC 17:16
PROVIDERS: Referring Provider Obstetrics & Gynecology; Visit Provider Obstetrics & Gynecology
DX: Z12.4 Encounter for screening for malignant neoplasm of cervix (principal)
CPT/HCPCS: 87624; 88175; G0145

== ENCOUNTER → 2019-03-24 06:51 | Outpatient (CLI) | payer OTHER, SELFPAY ==
--- NOTE | 2019-03-24 10:35 | US_ITS ---
STUDY: SUPERFICIAL ULTRASOUND - POSTERIOR LEFT KNEE REASON FOR EXAM: Female, 44 years old. PAIN IN LT POP FOSSA/KNEE TECHNIQUE: A superficial ultrasound was performed with real-time and static corley-scale imaging. COMPARISON: None. FINDINGS: Anechoic fluid collection of the left popliteal fossa measures 4.6 x 3.8 x 1.8 cm. Relatively thin walled without septations identified. No vascular flow. US/Ext Non Vasc Limited/Soft Tiss IMPRESSION: 1. Simple appearing popliteal cyst measuring up to 4.6 cm. Electronically Signed: Mathew Rueda MD ([facility]) at 12:43 EST , Service support ,
== END ==
DX: M25.562 Pain in left knee (principal); M71.22 Synovial cyst of popliteal space [Baker], left knee
CPT/HCPCS: 76882

== ENCOUNTER → 2019-04-11 08:49 | Outpatient (CLI) | payer OTHER, SELFPAY ==
[2019-04-11 10:20] LABS: Absolute Lymphocyte Count 2.47 X10^3/uL (0.83-4.51); Absolute Neutrophil Count 4.1 X10^3/uL (2.0-7.7); Basophil# 0.06 X10^3/uL; Basophil% 0.8 % (0-1); Eosinophil# 0.12 X10^3/uL; Eosinophils% 1.5 % (0-5); Hematocrit 40.6 % (37-47); Hemoglobin 13.5 g/dL (12.0-15.0); Lymphocyte # 2.47 X10^3/ul (4.0); Lymphocyte % 31.8 % (19-41); Mean Corp Hgb Conc 33.3 g/dL (32-36); Mean Corpuscular Volume 93.1 fL (81-99); Mean Platelet Vol. 10.1 fl (6.2-12.0); Monocyte# 0.92 X10^3/uL; Monocyte% 11.9 % (0-10); NRBC Flagged by Analyzer 0.5 % (0-5); Neutrophil # 4.09 X10^3/uL (2.7-7.7); Neutrophil % 52.7 % (47-70); Platelet Count 271 K/mm3 (150-450); RBC Distribution Width CV 12.2 % (11.6-14.6); RBC Distribution Width SD 42.4 fl (35.1-43.9); Red Blood Count 4.36 M/mm3 (4.2-5.4); White Blood Count 7.8 K/mm3 (4.4-11.0)
[2019-04-11 11:10] LABS: ALB/GLOB Ratio 1.1 RATIO (0.9-2.4); AST(SGOT) 15 U/L (15-37); Alanine Aminotransfer ALT/SGPT 19 U/L (13-56); Albumin, Serum 4.1 g/dL (3.2-5.0); Alkaline Phosphatase 59 U/L (45-117); Anion Gap 3 (5-15); BUN 15 mg/dL (7-18); BUN/Creat Ratio 18.1 RATIO (10-20); Calcium,Total 8.9 mg/dL (8.5-10.1); Chloride 106 mmol/L (98-107); Creatinine, Serum 0.83 mg/dL (0.55-1.02); EST Glomerular Filtration Rate 79 mL/min (>60); Est Glom Filt Rate - Afr Amer 95 mL/min (>60); Globulin 3.6 g/dL (2.2-4.2); Glucose 79 mg/dL (74-106); Potassium 3.9 mmol/L (3.5-5.1); Protein, Total 7.7 g/dL (6.4-8.2); Sodium Level 138 mmol/L (136-145)
== END ==
PROVIDERS: Visit Provider Psychiatry & Neurology Sleep Medicine
DX: G35 Multiple sclerosis (principal)
CPT/HCPCS: 36415; 80053; 85025

== ENCOUNTER → 2019-08-06 | Outpatient (CLI) | payer OTHER, SELFPAY ==
[2019-08-06 09:58] LABS: Absolute Lymphocyte Count 2.13 X10^3/uL (0.83-4.51); Absolute Neutrophil Count 4.2 X10^3/uL (2.0-7.7); Basophil# 0.07 X10^3/uL; Basophil% 0.9 % (0-1); Eosinophil# 0.12 X10^3/uL; Eosinophils% 1.6 % (0-5); Hematocrit 39.1 % (37-47); Hemoglobin 12.9 g/dL (12.0-15.0); Lymphocyte # 2.13 X10^3/ul (4.0); Lymphocyte % 28.1 % (19-41); Mean Corpuscular Hgb 30.9 pg (27.0-32.0); Mean Corpuscular Volume 93.8 fL (81-99); Mean Platelet Vol. 10.2 fl (6.2-12.0); Monocyte# 1.03 X10^3/uL; Monocyte% 13.6 % (0-10); NRBC Flagged by Analyzer 0.5 % (0-5); Neutrophil # 4.16 X10^3/uL (2.7-7.7); Neutrophil % 54.9 % (47-70); Platelet Count 324 K/mm3 (150-450); RBC Distribution Width SD 44.4 fl (35.1-43.9); Red Blood Count 4.17 M/mm3 (4.2-5.4); White Blood Count 7.6 K/mm3 (4.4-11.0)
[2019-08-06 10:54] LABS: ALB/GLOB Ratio 1.2 RATIO (0.9-2.4); AST(SGOT) 15 U/L (15-37); Alanine Aminotransfer ALT/SGPT 20 U/L (13-56); Albumin, Serum 4.1 g/dL (3.2-5.0); Alkaline Phosphatase 67 U/L (45-117); Anion Gap 6 (5-15); BUN 15 mg/dL (7-18); BUN/Creat Ratio 18.5 RATIO (10-20); Calcium,Total 9.4 mg/dL (8.5-10.1); Chloride 108 mmol/L (98-107); Creatinine, Serum 0.81 mg/dL (0.55-1.02); EST Glomerular Filtration Rate 81 mL/min (>60); Est Glom Filt Rate - Afr Amer 97 mL/min (>60); Globulin 3.3 g/dL (2.2-4.2); Glucose 83 mg/dL (74-106); Potassium 4.2 mmol/L (3.5-5.1); Protein, Total 7.4 g/dL (6.4-8.2); Sodium Level 138 mmol/L (136-145)
== END | disposition home or self-care (01) ==
LOC: LAB 09:27 → LABSPEC 08-07 07:13
PROVIDERS: Visit Provider Psychiatry & Neurology Sleep Medicine
DX: G35 Multiple sclerosis (principal)
CPT/HCPCS: 36415; 80053; 85025

== ENCOUNTER → 2019-08-08 10:02 | Outpatient (CLI) | payer OTHER, SELFPAY ==
--- NOTE | 2019-08-08 10:15 | MRI_ITS ---
STUDY: MRI BRAIN WITH AND WITHOUT CONTRAST REASON FOR EXAM: Female, 44 years old. ms, medication check TECHNIQUE: Standardized multiplanar fat and water weighted pulse sequences were obtained. IV Dotarem 11ml was administered for the contrast portion of the examination. COMPARISON: January 11, 2019 FINDINGS: Normal size of the ventricles and extra-axial spaces for the patient''s age. Again noted are the minimal left periventricular white matter hyperintensities without change since the prior examinations.The corpus callosum is unremarkable. There is no evidence of infratentorial disease. There is no demonstrated myelin vacuolization Normal bilateral basal ganglia. Normal thalami. There is no extra-axial fluid accumulation. Normal flow voids within the major intracranial circulation suggesting patency by spin echo criteria. Normal venous enhancement. There is no enhancing intra-axial or extra-axial abnormality. Normal sella turcica, pituitary gland, infundibular stalk, optic chiasm and hypothalamus. Normal tectal plate and pineal gland. Normal midbrain, edie and medulla. Normal cerebellum. Normal basal cisterns. Normal bilateral temporal bones. Normal bilateral internal auditory canals. MRI/Brain W/WO Contrast IMPRESSION: Stable minimal white matter disease. No enhancement or restricted diffusion to suggest active demyelination. Electronically Signed: Baldemar Lee MD at 15:54 EDT Tel , Service support ,
== END ==
PROVIDERS: Referring Provider Psychiatry & Neurology Sleep Medicine; Visit Provider Psychiatry & Neurology Sleep Medicine
DX: G35 Multiple sclerosis (principal)
CPT/HCPCS: 70553; A9575

== ENCOUNTER → 2019-09-06 14:18 | Outpatient (CLI) | payer OTHER, SELFPAY ==
[2019-09-06 14:55] LABS: Absolute Lymphocyte Count 2.48 X10^3/uL (0.83-4.51); Absolute Neutrophil Count 3.8 X10^3/uL (2.0-7.7); Basophil# 0.06 X10^3/uL; Basophil% 0.8 % (0-1); Eosinophil# 0.17 X10^3/uL; Eosinophils% 2.3 % (0-5); Hematocrit 40.2 % (37-47); Lymphocyte # 2.48 X10^3/ul (4.0); Lymphocyte % 33.4 % (19-41); Mean Corp Hgb Conc 32.3 g/dL (32-36); Mean Corpuscular Volume 95.9 fL (81-99); Mean Platelet Vol. 10.6 fl (6.2-12.0); Monocyte# 0.89 X10^3/uL; NRBC Flagged by Analyzer 0.3 % (0-5); Neutrophil # 3.78 X10^3/uL (2.7-7.7); Neutrophil % 50.8 % (47-70); Platelet Count 341 K/mm3 (150-450); RBC Distribution Width CV 12.6 % (11.6-14.6); RBC Distribution Width SD 43.8 fl (35.1-43.9); Red Blood Count 4.19 M/mm3 (4.2-5.4); White Blood Count 7.4 K/mm3 (4.4-11.0)
[2019-09-06 15:50] LABS: ALB/GLOB Ratio 1.2 RATIO (0.9-2.4); AST(SGOT) 15 U/L (15-37); Alanine Aminotransfer ALT/SGPT 22 U/L (13-56); Alkaline Phosphatase 66 U/L (45-117); Anion Gap 6 (5-15); BUN 15 mg/dL (7-18); BUN/Creat Ratio 15.3 RATIO (10-20); Calcium,Total 8.8 mg/dL (8.5-10.1); Chloride 106 mmol/L (98-107); Creatinine, Serum 0.98 mg/dL (0.55-1.02); EST Glomerular Filtration Rate 65 mL/min (>60); Est Glom Filt Rate - Afr Amer 78 mL/min (>60); Globulin 3.4 g/dL (2.2-4.2); Glucose 72 mg/dL (74-106); LDH 158 U/L (84-246); Magnesium 2.1 mg/dL (1.6-2.6); Phosphorus 3.1 mg/dL (2.5-4.9); Potassium 4.1 mmol/L (3.5-5.1); Protein, Total 7.4 g/dL (6.4-8.2); Sodium Level 140 mmol/L (136-145)
[2019-09-07 06:36] LABS: Hepatitis B Core Ab Total Negative (Negative)
[2019-09-07 10:18] LABS: Hepatitis B Surface Antigen Non-Reactive (Nonreactive)
== END ==
DX: G35 Multiple sclerosis (principal)
CPT/HCPCS: 36415; 80053; 83615; 83735; 84100; 84550; 85025; 86704; 87340

== ENCOUNTER → 2020-03-25 | Outpatient (CLI) | payer OTHER, SELFPAY ==
[2020-03-26 20:19] LABS: HPV Reflexed? NOT INDICATED
== END | disposition home or self-care (01) ==
LOC: LABSPEC 11:07
PROVIDERS: Visit Provider Student in an Organized Health Care Education/Training Program
DX: Z12.4 Encounter for screening for malignant neoplasm of cervix (principal)
CPT/HCPCS: 88175; G0145

== ENCOUNTER → 2020-04-25 07:24 | Outpatient (CLI) | payer OTHER, SELFPAY ==
--- NOTE | 2020-04-25 07:27 | MRI_ITS ---
STUDY: MRI BRAIN WITH AND WITHOUT CONTRAST REASON FOR EXAM: Female, 45 years old. MS, speech and short term memory issues, new medication TECHNIQUE: Standardized multiplanar fat and water weighted pulse sequences were obtained. IV Dotarem 12ml was administered for the contrast portion of the examination. COMPARISON: 08/08/2019 FINDINGS: Normal size of the ventricles and extra-axial spaces for the patient''s age. There is no change in the minimal left periventricular white matter hyperintensities. There is no evidence for recent intracranial ischemia or other cause of cytotoxic edema on diffusion weighted imaging (DWI). Normal T2* images of the brain without demonstrated susceptibility artifact. There is no demonstrated hemosiderin stain. Thin section coronal T2-weighted images through the temporal lobes demonstrate no evidence of hippocampal atrophy which can be seen in cognitive decline. Normal bilateral basal ganglia. Normal thalami. There is no extra-axial fluid accumulation. Normal flow voids within the major intracranial circulation suggesting patency by spin echo criteria. Normal venous enhancement. There is no enhancing intra-axial or extra-axial abnormality. Normal sella turcica, pituitary gland, infundibular stalk, optic chiasm and hypothalamus. Normal tectal plate and pineal gland. Normal midbrain, edie and medulla. Normal cerebellum. Normal basal cisterns. Normal bilateral temporal bones. Normal bilateral internal auditory canals. No demonstrated orbital abnormality, within the constraints of a routine brain study. Normal visualized paranasal sinuses. Normal calvarium and skull base. Normal visualized soft tissue structures. Normal visualized upper cervical spine. MRI/Brain W/WO Contrast IMPRESSION: No change from 08/08/2019. No contrast-enhancing plaque. Electronically Signed: Ciaran Shah MD at 10:04 EST Tel , Service support ,
== END ==
PROVIDERS: Referring Provider Psychiatry & Neurology Sleep Medicine; Visit Provider Psychiatry & Neurology Sleep Medicine
DX: G35 Multiple sclerosis (principal)
CPT/HCPCS: 70553; A9575

== ENCOUNTER → 2020-05-25 09:38 | Outpatient (CLI) | payer OTHER, SELFPAY ==
[2020-05-25 09:59] LABS: Absolute Lymphocyte Count 0.96 X10^3/uL (0.83-4.51); Absolute Neutrophil Count 2.7 X10^3/uL (2.0-7.7); Basophil# 0.03 X10^3/uL; Basophil% 0.7 % (0-1); Eosinophil# 0.05 X10^3/uL; Eosinophils% 1.1 % (0-5); Hematocrit 42.6 % (37-47); Hemoglobin 14.1 g/dL (12.0-15.0); Lymphocyte # 0.96 X10^3/ul (4.0); Lymphocyte % 21.7 % (19-41); Mean Corp Hgb Conc 33.1 g/dL (32-36); Mean Corpuscular Hgb 30.9 pg (27.0-32.0); Mean Corpuscular Volume 93.2 fL (81-99); Mean Platelet Vol. 10.1 fl (6.2-12.0); Monocyte# 0.68 X10^3/uL; Monocyte% 15.3 % (0-10); NRBC Flagged by Analyzer 0 % (0-5); Neutrophil # 2.69 X10^3/uL (2.7-7.7); Neutrophil % 60.7 % (47-70); Platelet Count 326 K/mm3 (150-450); RBC Distribution Width CV 11.7 % (11.6-14.6); RBC Distribution Width SD 39.3 fl (35.1-43.9); Red Blood Count 4.57 M/mm3 (4.2-5.4); White Blood Count 4.4 K/mm3 (4.4-11.0)
[2020-05-25 10:29] LABS: ALB/GLOB Ratio 1.2 RATIO (0.9-2.4); AST(SGOT) 16 U/L (15-37); Alanine Aminotransfer ALT/SGPT 21 U/L (13-56); Albumin, Serum 4.4 g/dL (3.2-5.0); Alkaline Phosphatase 66 U/L (45-117); Anion Gap 6 (5-15); BUN 16 mg/dL (7-18); BUN/Creat Ratio 18.2 RATIO (10-20); Calcium,Total 8.7 mg/dL (8.5-10.1); Chloride 106 mmol/L (98-107); Cholesterol 140 mg/dL (200); Creatinine, Serum 0.88 mg/dL (0.55-1.02); EST Glomerular Filtration Rate 73 mL/min (>60); Est Glom Filt Rate - Afr Amer 89 mL/min (>60); Globulin 3.7 g/dL (2.2-4.2); Glucose 75 mg/dL (74-106); High Density Lipoprotein 79 mg/dL; Potassium 3.8 mmol/L (3.5-5.1); Protein, Total 8.1 g/dL (6.4-8.2); Sodium Level 138 mmol/L (136-145); Thyroid Stim Hormone (TSH) 1.48 uIU/mL (0.358-3.74); Triglycerides 74 mg/dL; Very Low Density Lipoprotein 15 mg/dL (5-40)
[2020-05-27 08:14] LABS: Vitamin D,25 Hydroxy 86.2 ng/mL
== END ==
DX: Z00.00 Encounter for general adult medical examination without abnormal findings (principal); E55.9 Vitamin D deficiency, unspecified
CPT/HCPCS: 36415; 80053; 80061; 82306; 84443; 85025

== ENCOUNTER → 2020-07-06 07:25 | Outpatient (CLI) | payer OTHER, SELFPAY | PROVIDERS: Referring Provider Psychiatry & Neurology Sleep Medicine; Visit Provider Psychiatry & Neurology Sleep Medicine | DX: U07.1 COVID-19 (principal); G35 Multiple sclerosis | CPT/HCPCS: 36415; 86769 ==

== ENCOUNTER → 2020-12-23 10:21 | Outpatient (CLI) | payer OTHER, SELFPAY ==
--- NOTE | 2020-12-23 10:23 | US_ITS ---
STUDY: SUPERFICIAL ULTRASOUND - LEFT AXILLA REASON FOR EXAM: Female, 45 years old. L AXILLA MASS WO LYMPHADENOPATHY TECHNIQUE: A superficial ultrasound was performed with real-time and static corley-scale imaging. COMPARISON: None. FINDINGS: The left axillary region was examined by ultrasound. There are 3 benign appearing lymph nodes. The largest measures 1.8 cm x 1 cm x 0.5 cm. US/Ext Non Vasc Limited/Soft Tiss IMPRESSION: There are 3 benign-appearing lymph nodes in the left axilla. The largest measures 1.8 cm x 1 cm x 0.5 cm. Electronically Signed: Ernesto Hills MD at 12:41 EDT , Service support ,
== END ==
DX: R22.32 Localized swelling, mass and lump, left upper limb (principal)
CPT/HCPCS: 76882

== ENCOUNTER → 2021-03-07 08:22 | Outpatient (REF) | payer OTHER, SELFPAY ==
[2021-03-07 08:27] LABS: Absolute Neutrophil Count 3.4 X10^3/uL (2.0-7.7); Basophil# 0.05 X10^3/uL; Eosinophil# 0.09 X10^3/uL; Eosinophils% 1.7 % (0-5); Hematocrit 40.6 % (37-47); Hemoglobin 13.5 g/dL (12.0-15.0); Lymphocyte % 17.2 % (19-41); Mean Corp Hgb Conc 33.3 g/dL (32-36); Mean Corpuscular Hgb 31.4 pg (27.0-32.0); Mean Corpuscular Volume 94.4 fL (81-99); Mean Platelet Vol. 9.8 fl (6.2-12.0); Monocyte# 0.77 X10^3/uL; Monocyte% 14.7 % (0-10); NRBC Flagged by Analyzer 0 % (0-5); Neutrophil # 3.41 X10^3/uL (2.7-7.7); Platelet Count 386 K/mm3 (150-450); RBC Distribution Width CV 11.9 % (11.6-14.6); White Blood Count 5.2 K/mm3 (4.4-11.0)
[2021-03-07 09:07] LABS: AST(SGOT) 15 U/L (15-37); Alanine Aminotransfer ALT/SGPT 21 U/L (13-56); Albumin, Serum 3.7 g/dL (3.2-5.0); Alkaline Phosphatase 61 U/L (45-117); Anion Gap 5 (5-15); BUN 12 mg/dL (7-18); BUN/Creat Ratio 15.1 RATIO (10-20); Bilirubin, Direct 0.25 mg/dL (0.00-0.30); Chloride 106 mmol/L (98-107); Cholesterol 147 mg/dL (200); Creatinine, Serum 0.79 mg/dL (0.55-1.02); EST Glomerular Filtration Rate 82 mL/min (>60); Est Glom Filt Rate - Afr Amer 99 mL/min (>60); Globulin 3.8 g/dL (2.2-4.2); Glucose 77 mg/dL (74-106); High Density Lipoprotein 80 mg/dL; LDH 140 U/L (84-246); Phosphorus 2.8 mg/dL (2.5-4.9); Potassium 4.1 mmol/L (3.5-5.1); Protein, Total 7.5 g/dL (6.4-8.2); Sodium Level 140 mmol/L (136-145); Triglycerides 90 mg/dL; Uric Acid 3.1 mg/dL (2.6-6.0); Very Low Density Lipoprotein 18 mg/dL (5-40)
[2021-03-07 10:07] LABS: Color, Urine Yellow (Yellow); Glucose, Dipstick Normal (Normal); Ketone-Dipstick Negative (Negative); Leukocyte Esterase-Dipstick 25 /ul (Negative); Nitrite-Dipstick Negative (Negative); Occult Blood-Urine Negative /ul (Negative); Protein-Dipstick Negative (Negative); Urine Bilirubin Dipstick Negative (Negative); Urine Clarity Clear (Clear); Urine Urobilinogen Normal (Normal)
== END ==
LOC: EMPH 08:22
DX: Z00.00 Encounter for general adult medical examination without abnormal findings (principal)

== ENCOUNTER 2021-05-19 14:58 | Outpatient (CLI) | payer OTHER, SELFPAY ==
[2021-05-25 13:37] LABS: HPV APTIMA, High Risk Negative (Negative)
== END 2021-05-19 23:59 | disposition home or self-care (01) ==
LOC: LABSPEC 15:01
PROVIDERS: Visit Provider Student in an Organized Health Care Education/Training Program
DX: Z12.4 Encounter for screening for malignant neoplasm of cervix (principal)
CPT/HCPCS: 87624; 88175; G0145

== ENCOUNTER 2021-06-09 14:27 | Outpatient (CLI) | payer OTHER, SELFPAY ==
--- NOTE | 2021-06-09 14:31 | BI_ITS ---
MAMMOGRAPHY - BILATERAL DIAGNOSTIC REASON FOR EXAM: Female, 46 years old. LUMP PERTINENT HISTORY: Non-contributory. TECHNIQUE: Digital examination. Mediolateral oblique (MLO) and craniocaudad (CC) views of both breasts were obtained. CAD: CAD was performed on this study. COMPARISON: 09/03/2020 FINDINGS: Breast Composition: The breasts are extremely dense, which lowers the sensitivity of mammography. There are no dominant masses or suspicious calcifications. There is breast parenchyma within the axilla of both breasts greater on the left than the right likely accounting for the patient''s palpable abnormality. Ultrasound of the left axilla will be obtained. BI/DIAG MAMM W/CAD, BILAT IMPRESSION: Further ultrasonographic evaluation recommended, as described above. ASSESSMENT CATEGORY: BIRADS Category 0: Incomplete. Need additional imaging evaluation. A letter regarding these results will be sent to the patient by the facility within 30 days. FOLLOW UP RECOMMENDATION: Ultrasound Recommended. (I) Approximately 10% of breast cancers are not detected by mammography. A normal mammogram should not delay biopsy of a clinically suspicious abnormality. Electronically Signed: Ciaran Shah MD at 15:33 EDT ,
--- NOTE | 2021-06-09 14:31 | US_ITS ---
STUDY: ULTRASOUND BREAST - LEFT REASON FOR EXAM: Female, 46 years old. Palpable mass TECHNIQUE: Axial and longitudinal images of the LEFT breast were performed with a high resolution ultrasound transducer. # OF IMAGES: 31 COMPARISON: Diagnostic mammogram earlier today, prior mammogram 09/03/2020, prior ultrasound 12/23/2020 FINDINGS: LEFT Breast: Heterogeneous background echotexture. Multiple longitudinal and transverse ultrasound images of the left axilla again demonstrate multiple normal lymph nodes with normal morphology and echogenicity with normal fatty chelly measuring 0.3 x 1.1 cm, 0.6 x 1.0 cm, and 0.5 x 2.2 cm. However, there is another focal 0.6 x 1.8 cm oval parallel indistinct isoechoic mass corresponding to the patient''s palpable abnormality. This may represent normal breast parenchyma as suggested on mammography but a mass cannot be excluded.: US/Breast Limited Unilateral IMPRESSION: Ultrasound confirms a 0.6 x 1.8 cm isoechoic mass in the left axilla which may represent normal breast parenchyma or a true mass. Correlation with MRI may be useful. Ultrasound-guided biopsy may also be useful. ASSESSMENT CATEGORY: BIRADS Category 0: Incomplete. Need additional imaging evaluation. A letter regarding these results will be sent to the patient by the facility within 30 days. Electronically Signed: Ciaran Shah MD at 16:18 EDT ,
== END 2021-06-09 23:59 | disposition home or self-care (01) ==
PROVIDERS: Visit Provider Student in an Organized Health Care Education/Training Program
DX: N63.32 Unspecified lump in axillary tail of the left breast (principal)
CPT/HCPCS: 76642; 77062; 77066; G0279

== ENCOUNTER 2021-06-13 08:16 | Outpatient (CLI) | payer OTHER, SELFPAY ==
[2021-06-13 08:45] LABS: Absolute Lymphocyte Count 0.81 X10^3/uL (0.83-4.51); Absolute Neutrophil Count 3.2 X10^3/uL (2.0-7.7); Basophil# 0.04 X10^3/uL; Basophil% 0.8 % (0-1); Eosinophil# 0.04 X10^3/uL; Eosinophils% 0.8 % (0-5); Hematocrit 38.6 % (37-47); Hemoglobin 13.7 g/dL (12.0-15.0); Lymphocyte # 0.81 X10^3/ul (0.83-4.51); Lymphocyte % 16.8 % (19-41); Mean Corp Hgb Conc 35.5 g/dL (32-36); Mean Corpuscular Hgb 32.9 pg (27.0-32.0); Mean Corpuscular Volume 92.6 fL (81-99); Mean Platelet Vol. 10.1 fl (6.2-12.0); Monocyte# 0.71 X10^3/uL; Monocyte% 14.8 % (0-10); NRBC Flagged by Analyzer 0 % (0-5); Neutrophil # 3.19 X10^3/uL (2.7-7.7); Neutrophil % 66.4 % (47-70); Platelet Count 330 K/mm3 (150-450); RBC Distribution Width CV 12.2 % (11.6-14.6); RBC Distribution Width SD 41.3 fl (35.1-43.9); Red Blood Count 4.17 M/mm3 (4.2-5.4); White Blood Count 4.8 K/mm3 (4.4-11.0)
[2021-06-13 08:48] LABS: Bacteria 0 SEEN /hpf (None Seen); Mucous, Urine 0 SEEN /hpf (<or=2+); Red Blood Cells-Urine 0 SEEN /hpf (0-5); Squamous Epithelial Cells - UA 0 SEEN /hpf (5-10); White Blood Cells 0 SEEN /hpf (0-5)
[2021-06-13 09:29] LABS: AST(SGOT) 22 U/L (15-37); Alanine Aminotransfer ALT/SGPT 25 U/L (13-56); Albumin, Serum 4.1 g/dL (3.2-5.0); BUN 14 mg/dL (7-18); CRP < 2.90 mg/L (0.0-3.0); Creatinine, Serum 0.89 mg/dL (0.55-1.02); EST Glomerular Filtration Rate 72 mL/min (>60); Est Glom Filt Rate - Afr Amer 87 mL/min (>60); Rheumatoid Factor < 10.0 IU/mL (<15)
[2021-06-13 11:04] LABS: Color, Urine Yellow (Yellow); Glucose, Dipstick Normal (Normal); Ketone-Dipstick Negative (Negative); Leukocyte Esterase-Dipstick 25 /ul (Negative); Nitrite-Dipstick Negative (Negative); Occult Blood-Urine Negative /ul (Negative); Protein-Dipstick Negative (Negative); Urine Bilirubin Dipstick Negative (Negative); Urine Clarity Clear (Clear); Urine Urobilinogen Normal (Normal)
[2021-06-15 15:07] LABS: Anti-Scleroderma-70 AB <0.2 AI (0.0-0.9); RNP Ab 0.2 AI (0.0-0.9); SJOGREN'S Anti-SS-A test 5.5 AI (0.0-0.9); SJOGREN'S Anti-SS-B test < 0.2 AI (0.0-0.9); Smith Ab <0.2 AI (0.0-0.9)
[2021-06-15 15:47] LABS: ANTINUCLEAR ANTIBODIES DIRECT Positive (Negative); Anti-Mitochondrial AB <20.0 Units (0.0-20.0); Anti-dsDNA Ab 3 IU/mL (0-9)
[2021-06-17 00:07] LABS: Complement C3 100 mg/dL (82-167)
[2021-06-17 09:26] LABS: Anti-Parietal Cell AB, QN 12.1 Units (0.0-20.0); Anti-Smooth Muscle ABS 7 Units (0-19); CCP IgG Antibodies 7 units (0-19); Thyroid Peroxidase AB < 8 IU/mL (0-34)
== END 2021-06-13 23:59 | disposition home or self-care (01) ==
PROVIDERS: Visit Provider Internal Medicine Rheumatology
DX: M35.1 Other overlap syndromes (principal); M36.8 Systemic disorders of connective tissue in other diseases classified elsewhere
CPT/HCPCS: 36415; 81001; 82040; 82565; 83516; 84450; 84460; 84520; 85025; 86038; 86140; 86160; 86200; 86225; 86235; 86376; 86431

== ENCOUNTER → 2021-09-22 | Outpatient (CLI) | payer OTHER, SELFPAY ==
--- NOTE | 2021-09-22 12:45 | MRI_ITS ---
STUDY: BILATERAL BREAST MR WITHOUT AND WITH CONTRAST REASON FOR EXAM: Female, 46 years old. Palpable mass in axilla. Abnormal mammogram and left breast ultrasound. TECHNIQUE: Multi-sequence multi-echo imaging of both breasts was performed with a dedicated breast coil. T1-weighted and T2-weighted images were performed before the administration of contrast. T1-weighted images were also performed after the intravenous administration of 12 mL of Dotarem contrast. COMPARISON: Bilateral mammogram dated 06/09/2021 and unilateral left breast dated 06/09/2021. FINDINGS: RIGHT BREAST: The breast tissue is markedly dense with moderate background enhancement. There are no abnormal enhancing masses or areas of non-mass enhancement in the right breast. LEFT BREAST: The breast tissue is markedly dense with moderate background enhancement. There are no abnormal enhancing masses or areas of non-mass enhancement in the left breast. Symmetrical bilateral lymph nodes. No suspicious lymph nodes. There is no abnormality in the visualized regions of the chest or liver. MRI/Breast Bilateral W/O and W IMPRESSION: Markedly dense breast parenchyma with moderate background enhancement as described. No abnormality in either axilla. A follow-up left breast ultrasound with particular attention to the palpable mass could be performed in 3-6 months. However, percutaneous ultrasound-guided biopsy of the mass is another alternative which can be decided upon and clinically and based on the ultrasound. CATEGORY: BIRADS Category 2: Benign. A letter regarding these results will be sent to the patient by the facility within 30 days. Electronically Signed: Jose Perkins MD at 9:58 EDT ,
== END | disposition home or self-care (01) ==
PROVIDERS: Referring Provider Surgery; Visit Provider Surgery
DX: R92.8 Other abnormal and inconclusive findings on diagnostic imaging of breast (principal)
CPT/HCPCS: 77049; A9575; A4216; C8908

== ENCOUNTER → 2021-12-17 | Outpatient (CLI) | payer OTHER, SELFPAY ==
--- NOTE | 2021-12-17 17:58 | MRI_ITS ---
STUDY: MRI BRAIN WITH AND WITHOUT CONTRAST REASON FOR EXAM: Female, 46 years old. MS TECHNIQUE: Standardized multiplanar fat and water weighted pulse sequences were obtained. IV 12ml Clariscan was administered for the contrast portion of the examination. COMPARISON: 04/25/2020. FINDINGS: Normal size of the ventricles and extra-axial spaces for the patient''s age. There is minimal bilateral periventricular white matter hyperintensity without mass effect or diffusion.. Normal bilateral basal ganglia. Normal thalami. There is no extra-axial fluid accumulation. Normal flow voids within the major intracranial circulation suggesting patency by spin echo criteria. Normal venous enhancement. There is no enhancing intra-axial or extra-axial abnormality. Normal sella turcica, pituitary gland, infundibular stalk, optic chiasm and hypothalamus. Normal tectal plate and pineal gland. Normal midbrain, edie and medulla. Normal cerebellum. Normal basal cisterns. Normal bilateral temporal bones. Normal bilateral internal auditory canals. No demonstrated orbital abnormality, within the constraints of a routine brain study. Normal visualized paranasal sinuses. Normal calvarium and skull base. Normal visualized soft tissue structures. Normal visualized upper cervical spine. No significant change since prior exam MRI/Brain W/WO Contrast IMPRESSION: Minimal periventricular white matter disease which may be consistent with clinical history of multiple sclerosis. No evidence for enhancing plaque at this time to suggest active demyelination.. No significant change since prior exam Electronically Signed: Wesley Bello MD at 19:17 EDT ,
== END | disposition home or self-care (01) ==
LOC: MRI 17:54
PROVIDERS: Visit Provider Psychiatry & Neurology Sleep Medicine
DX: G35 Multiple sclerosis (principal)
CPT/HCPCS: 70553; A9575

== ENCOUNTER → 2022-07-10 | Outpatient (CLI) | payer OTHER, SELFPAY ==
[2022-07-10 16:44] LABS: Estradiol 113.2 pg/mL; Follicle Stimulating Hormone 31.7 mIU/mL; Luteinizing Hormone 30.7 mIU/mL
[2022-07-10 16:46] LABS: Progesterone Level 0.63 ng/mL (See Comment)
== END | disposition home or self-care (01) ==
LOC: WOBLAB 14:51
PROVIDERS: Visit Provider Student in an Organized Health Care Education/Training Program
DX: N95.8 Other specified menopausal and perimenopausal disorders (principal)
CPT/HCPCS: 36415; 82670; 83001; 83002; 84144

== ENCOUNTER → 2022-07-16 | Outpatient (CLI) | payer OTHER, SELFPAY ==
--- NOTE | 2022-07-16 | EMB_PTH ---
PATIENT: PRAFUL KAHN LOC: [facility] U#:[id number] AGE/SX: 47/F ROOM: RE07/16/[address]: Dr. Serina Sandoval DO : 1975 BED: DIS: 07/16/2022 SPEC #: [id number] RECD: 07/16/22 14:05 STATUS: DENITA REAdolfo #: [id number] ANUP: 07/16/22 00:[address]: Serina Sandoval DEPT: SURGICAL PATHOLOGY RECD BY: Demarcus Allan Tissues: Endometrium, NOS Procedures: Surgery Specimen Level IV HEADER OPERATION: Endometrial biopsy PRE-OP DIAGNOSIS: Abnormal uterine bleeding TISSUE SUBMITTED: Endometrial biopsy MICROSCOPIC DIAGNOSIS Endometrium, biopsy: Strips of benign superficial endometrium and endocervix. Focal dystrophic microcalcifications. AM:jennifer 07/20/2022 MICROSCOPIC DESCRIPTION Slides are reviewed. GROSS DESCRIPTION Received in fixative is one container labeled with the patient's name and designated endometrial biopsy. The specimen consists of multiple fragments of hemorrhagic mucoid tissue that in aggregate measure 2.0 x 2.0 x 0.1 cm. The specimen is totally submitted in one cassette. / SJ:rg 07/17/2022 :5 CPT: 59887
[2022-07-23 10:08] LABS: HPV APTIMA, High Risk Negative (Negative)
== END | disposition home or self-care (01) ==
LOC: LABSPEC 13:55
PROVIDERS: Visit Provider Student in an Organized Health Care Education/Training Program
DX: N93.9 Abnormal uterine and vaginal bleeding, unspecified (principal)
CPT/HCPCS: 87624; 88175; 88305; G0145

== ENCOUNTER → 2022-07-27 | Outpatient (CLI) | payer OTHER, SELFPAY ==
[2022-07-27 10:32] LABS: Absolute Lymphocyte Count 0.82 X10^3/uL (0.83-4.51); Absolute Neutrophil Count 3.6 X10^3/uL (2.0-7.7); Basophil# 0.03 X10^3/uL; Basophil% 0.6 % (0-1); Eosinophil# 0.04 X10^3/uL; Eosinophils% 0.8 % (0-5); Hematocrit 41.1 % (37-47); Lymphocyte # 0.82 X10^3/ul (0.83-4.51); Lymphocyte % 16.1 % (19-41); Mean Corp Hgb Conc 34.1 g/dL (32-36); Mean Corpuscular Hgb 31.9 pg (27.0-32.0); Mean Corpuscular Volume 93.6 fL (81-99); Mean Platelet Vol. 10.2 fl (6.2-12.0); Monocyte# 0.57 X10^3/uL; Monocyte% 11.2 % (0-10); NRBC Flagged by Analyzer 0 % (0-5); Neutrophil # 3.62 X10^3/uL (2.7-7.7); Neutrophil % 71.1 % (47-70); Platelet Count 340 K/mm3 (150-450); RBC Distribution Width CV 11.8 % (11.6-14.6); RBC Distribution Width SD 40.4 fl (35.1-43.9); Red Blood Count 4.39 M/mm3 (4.2-5.4); White Blood Count 5.1 K/mm3 (4.4-11.0)
[2022-07-27 10:39] LABS: Erythrocyte Sedimentation Rate 4 mm/hr (0-30)
[2022-07-27 11:14] LABS: ALB/GLOB Ratio 1.1 RATIO (0.9-2.4); AST(SGOT) 17 U/L (15-37); Alanine Aminotransfer ALT/SGPT 25 U/L (13-56); Alkaline Phosphatase 79 U/L (45-117); Anion Gap 6 (5-15); BUN 21 mg/dL (7-18); BUN/Creat Ratio 22.5 RATIO (10-20); CRP < 2.90 mg/L (0.0-3.0); Calcium,Total 9.2 mg/dL (8.5-10.1); Chloride 107 mmol/L (98-107); Creatinine, Serum 0.93 mg/dL (0.55-1.02); EST Glomerular Filtration Rate 68 mL/min (>60); Est Glom Filt Rate - Afr Amer 82 mL/min (>60); Globulin 3.6 g/dL (2.2-4.2); Glucose 73 mg/dL (74-106); Potassium 3.8 mmol/L (3.5-5.1); Protein, Total 7.6 g/dL (6.4-8.2); Sodium Level 138 mmol/L (136-145)
[2022-07-28 14:09] LABS: Endomysial Antibody IgA Negative (Negative); Immunoglobulin A 217 mg/dL (87-352); t-Transglutaminase IgA <2 U/mL (0-3)
[2022-07-30 08:12] LABS: Immunoglobulin A 216 mg/dL (87-352); Immunoglobulin E 18 IU/mL (6-495); Immunoglobulin G 1311 mg/dL (586-1602); Immunoglobulin M 87 mg/dL (26-217)
== END | disposition home or self-care (01) ==
PROVIDERS: Referring Provider Nurse Practitioner Adult Health; Visit Provider Nurse Practitioner Adult Health
DX: R68.81 Early satiety (principal); R14.0 Abdominal distension (gaseous); K59.00 Constipation, unspecified
CPT/HCPCS: 36415; 80053; 82784; 82785; 83516; 85025; 85652; 86140; 86255

== ENCOUNTER → 2022-07-29 | Outpatient (CLI) | payer OTHER, SELFPAY ==
[2022-08-03 16:09] LABS: Calprotectin, Stool 60 ug/g (0-120)
== END | disposition home or self-care (01) ==
LOC: LABSPEC 07:27
PROVIDERS: Visit Provider Nurse Practitioner Adult Health
DX: R68.81 Early satiety (principal); R14.0 Abdominal distension (gaseous); K59.00 Constipation, unspecified; K58.9 Irritable bowel syndrome, unspecified
CPT/HCPCS: 83630; 83993

== ENCOUNTER → 2022-08-01 | Outpatient (CLI) | payer OTHER, SELFPAY ==
[2022-08-01 09:11] LABS: Rheumatoid Factor < 10.0 IU/mL (<15)
[2022-08-01 12:37] LABS: Color, Urine Yellow (Yellow); Glucose, Dipstick Normal (Normal); Ketone-Dipstick Negative (Negative); Leukocyte Esterase-Dipstick 25 /ul (Negative); Nitrite-Dipstick Negative (Negative); Occult Blood-Urine Negative /ul (Negative); Protein-Dipstick Negative (Negative); Urine Bilirubin Dipstick Negative (Negative); Urine Clarity Clear (Clear); Urine Urobilinogen Normal (Normal)
[2022-08-03 11:08] LABS: Complement C3 110 mg/dL (82-167); Thyroid Peroxidase AB < 9 IU/mL (0-34)
[2022-08-06 16:09] LABS: Dilute Prothrombin Time (dPT) 36.1 sec (0.0-47.6); Dilute Russell Viper Venom 34.4 sec (0.0-47.0); Interpretation Comment: (.); PTT-LA 37.6 sec (0.0-43.5); Thrombin Time 18.4 sec (0.0-23.0); dPT Confirm Ratio 1.08 Ratio (0.00-1.34)
== END | disposition home or self-care (01) ==
PROVIDERS: Visit Provider Internal Medicine Rheumatology
DX: M35.1 Other overlap syndromes (principal); M32.10 Systemic lupus erythematosus, organ or system involvement unspecified; R76.0 Raised antibody titer
CPT/HCPCS: 36415; 81002; 82232; 86038; 86147; 86160; 86225; 86235; 86376; 86431

== ENCOUNTER → 2022-08-13 | Outpatient (CLI) | payer OTHER, SELFPAY ==
--- NOTE | 2022-08-13 12:01 | NM_ITS ---
CLINICAL: 47-year-old female with history of early satiety. SEMI-SOLID PHASE 99m Tc SULFUR COLLOID GASTRIC EMPTYING STUDY COMPARISON: None available FINDINGS: The patient was administered 1.1 mCi of 99m Tc sulfur colloid mixed with oatmeal and consumed per os. Image acquisitions in the anterior-posterior projections were obtained for 60 minutes. There is prompt visualization of the stomach. There is no gastroesophageal reflux identified. The T ? raw data emptying was calculated to be 45.23 minutes, (Normal: 12-56 minutes). NM/Gastric Emptying Study IMPRESSION: 1. NORMAL 99m Tc sulfur colloid semi-solid phase (oatmeal) gastric emptying imaging examination. A. There is normal and preserved semi-solid phase gastric emptying compared to normal. (Gregory et al, J Nucl Med Tech 38: 186, 2010). Electronically Signed: Ciaran Bridges, at 23:04 EDT ,
== END | disposition home or self-care (01) ==
LOC: NM 12:00
PROVIDERS: Referring Provider Nurse Practitioner Adult Health; Visit Provider Nurse Practitioner Adult Health
DX: R68.81 Early satiety (principal); R14.0 Abdominal distension (gaseous); K59.00 Constipation, unspecified
CPT/HCPCS: 78264; A9541

== ENCOUNTER → 2022-08-19 | Outpatient (CLI) | payer OTHER, SELFPAY ==
--- NOTE | 2022-08-19 15:34 | BI_ITS ---
MAMMOGRAPHY - BILATERAL SCREENING REASON FOR EXAM: Female, 47 years old. Routine annual screening examination. PERTINENT HISTORY: Left axillary lump demonstrated to be benign on MRI from 09/22/2021. No personal or family history of breast cancer. TECHNIQUE: Digital bilateral breast darvin (3D mammographic acquisition) in the CC and MLO projections. 2-D mediolateral oblique (MLO) and craniocaudad (CC) views of both breasts were obtained. CAD: Full Field Digital Mammography with Computer Added Detection was performed. COMPARISON: Mammogram from 06/09/2021. Left axilla ultrasound from 06/09/2021. Breast MRI from 09/22/2021. FINDINGS: Breast Composition: The breasts are extremely dense, which lowers the sensitivity of mammography. There are no dominant masses or suspicious calcifications. No other significant abnormalities are identified. There has been no significant change since the prior study. The mass seen in the left axilla on prior ultrasound and MRI is not visualized on this examination. BI/SCRN MAMM (CAD)W/DARVIN BILAT IMPRESSION: Stable bilateral screening mammogram. Yearly follow-up mammogram recommended. (A) The mass seen in the left axilla on prior ultrasound and MRI is not visualized on this examination. Although likely benign on prior MRI, as previously recommended, follow-up left breast ultrasound is recommended for surveillance imaging of the mass if clinically warranted. ASSESSMENT CATEGORY: BIRADS Category 1: Negative. A letter regarding these results will be sent to the patient by the facility within 30 days. Additional recommendation: The mass seen in the left axilla on prior ultrasound and MRI is not visualized on this examination. Although likely benign on prior MRI, as previously recommended, follow-up left breast ultrasound is recommended for surveillance imaging of the mass if clinically warranted. Approximately 10% of breast cancers are not detected by mammography. A normal mammogram should not delay biopsy of a clinically suspicious abnormality. Electronically Signed: Mahad Schilling DO at 16:08 EDT ,
== END | disposition home or self-care (01) ==
LOC: OPBI 15:33
PROVIDERS: Referring Provider Student in an Organized Health Care Education/Training Program; Visit Provider Student in an Organized Health Care Education/Training Program
DX: Z12.31 Encounter for screening mammogram for malignant neoplasm of breast (principal)
CPT/HCPCS: 77063; 77067

== ENCOUNTER 2022-08-27 09:17 | Outpatient (RCR) | payer OTHER, SELFPAY | END 2022-09-25 23:59 | LOC: NS 09:17 | PROVIDERS: Visit Provider Nurse Practitioner Adult Health | DX: Z71.3 Dietary counseling and surveillance (principal); R14.0 Abdominal distension (gaseous) | CPT/HCPCS: 97802 ==

== ENCOUNTER 2022-10-05 10:00 | Day surgery (SDC) | payer OTHER, SELFPAY ==
[2022-10-05] VITALS (7 sets, daily range): BP systolic 112–132; BP diastolic 66–85; PULSE 61–73; RESP 16–18; TEMP 36.2–36.7; O2SAT 99–100; BMI 24.7
--- NOTE | 2022-10-05 | IMM_PTH ---
PATIENT: PRAFUL KAHN LOC: EN U#:[id number] AGE/SX: 47/F ROOM: RE10/05/[address]: Dr. Adam Geiger DO : 1975 BED: DIS: 10/05/2022 SPEC #: [id number] RECD: 10/06/22 09:49 STATUS: DENITA REAdolfo #: [id number] ANUP: 10/05/22 00:[address]: Adam Geiger DEPT: IMMUNOHISTOCHEMISTRY RECD BY: Danielito Lucas Tissues: Gastric mucous membrane Procedures: H Pylori (initial) PHYSICIAN & [place] [id number] SPECIMEN INFORMATION: Tissue Source: B. Gastric body Clinical Info: Nitin garcia, constipation Specimen Number: [id number] CPT code: 30236 METHODOLOGY: Deparaffinized sections of prefer/formalin-fixed tissue or PAP/DQ stained slides are incubated with monoclonal/polyclonal antibodies/oligonucleotide probes. Localization is made via biotin free immunoperoxidase method. Appropriate controls are performed and reacted as expected. Results on target cell population are indicated in the following table: RESULTS: ANTIBODY / CLONE RESULT H Pylori (polyclonal) negative These tests were developed and their performance characteristics determined by [facility]. They may not have been cleared or approved by the U.S. Food and Drug Administration. The FDA has determined that such clearance or approval is not necessary. The above immunohistochemical/dualISH markers are ordered and reviewed by the Pathologist. INTERPRETATION: B. Gastric body, biopsy: Negative for Helicobacter pylori organisms. AM:berna 10/07/22
--- NOTE | 2022-10-05 | GASB_PTH ---
PATIENT: PRAFUL KAHN LOC: EN U#:[id number] AGE/SX: 47/F ROOM: RE10/05/[address]: Dr. Adam Geiger DO : 1975 BED: DIS: 10/05/2022 SPEC #: [id number] RECD: 10/05/22 14:59 STATUS: DENITA RESENDEZ #: [id number] ANUP: 10/05/22 00:[address]: Adam Geiger DEPT: SURGICAL PATHOLOGY RECD BY: Demarcus Allan Tissues: A - Duodenum, NOS B - Gastric mucous membrane C - Esophageal mucous membrane Procedures: Special Stain Group II Surgery Specimen Level IV Alcian Blue/PAS (control) HEADER OPERATION: Colonoscopy, EGD biopsy PRE-OP DIAGNOSIS: Early satiety, constipation TISSUE SUBMITTED: A. Duodenum, B. Gastric body, C. Distal esophagus MICROSCOPIC DIAGNOSIS A. Duodenum, biopsy: No pathologic change. B. Gastric body, biopsy: Mild chronic inflammation. C. Distal esophagus, biopsy: Fragments of gastric mucosa with mild chronic inflammation. No evidence of goblet cell metaplasia. See Comment. AM;am 10/07/22 COMMENT B. The results of immunohistochemistry for Helicobacter pylori will be reported separately ([id number]). C. Alcian blue/PAS stain with matched control is used in the evaluation of the specimen. MICROSCOPIC DESCRIPTION Slides are reviewed. GROSS DESCRIPTION A. Received is one container labeled with the patient name and designated duodenum The specimen consists of multiple irregular fragments of light stephen soft tissue that in aggregate measure 1 x 0.5 x 0.1] cm. The specimen is totally submitted in one cassette. B. Received is one container labeled with the patient name and designated gastric body. The specimen consists of two irregular fragments of light stephen soft tissue that in aggregate measure 0.7 x 0.4 x 0.1[] cm. The specimen is totally submitted in one cassette. C. Received is one container labeled with the patient name and designated distal esophagus. The specimen consists of two irregular fragments of light stephen soft tissue that in aggregate measure 0.6 x 0.3 x 0.1 cm. The specimen is totally submitted in one cassette. SJ: 10/06/22 TC:3 CPT:60835m6, 97085
--- NOTE | 2022-10-05 10:23 | HP.PCM_ITS ---
History and Physical Date of Admission: 10/05/22 Chief Complaint: early satiety, bloating, belching, flatus, constipation Details: PRAFUL KAHN, is a 47 F who presents to the office today to establish with GI for approx 6 mos of early satiety, bloating, gas, flatus. Gets full very quickly, now only eating once a day but has gained weight No nausea or vomiting never used to have burping and flatus Omeprazole had decreased burping Sore throat every morning, not relieved with addition of omeprazole 40 mg daily 4 wks ago reflux when exercising especially when doing pushups, which is new too cold beverages feel like they stick in lower esophagus Has always tended toward constipation, usually managed by taking daily probiotic and having a smoothie, but now unable to tolerate smoothie due to early satiety, so constipation has worsened. Has had a few episodes of fecal urgency in the last couple of weeks, stool was soft but not diarrhea. No assoc pain. she has MS, Reynaud's, lupus, Sjogren's MS stable x 8 yrs, Ocrevus infusions 2x per yr plaquenil for lupus dry eye and dry mouth some joint pains, this is typical for her each Spring No prior EGD or colonoscopy ROS Const Constitutional: Positive for fatigue and weight change ENT ENT: Positive for difficulty swallowing Gastro GI: Positive for abdominal pain, bloating, change in bowel habits, constipation, heartburn, difficulty swallowing and excessive flatus; No belching, change in stool character, coffee ground emesis, cramping, diarrhea, feeling full early, incontinent of stools, Vomiting blood/hematemesis, Blood in stool, loose stools, Black,tarry stools, nausea/dyspepsia, pain with swallowing, vomiting or other Musc Musculoskeletal: Positive for joint pain, stiffness and restless legs Skin Skin: No yellowing of the eye or itchy eyes Neuro Neurology: Positive for restless legs Psych Psychiatric: No anxiety and No depression Endo Endocrine: Positive for fatigue and weight change Aller/Imm Allergy/Immunologic: No itchy eyes Demetrius/Lymp Hematologic/Lymphatic: No easy bleeding or easy bruising Exam Const General: cooperative, healthy appearing and comfortable Nutritional Appearance: average body habitus Orientation: alert, awake and oriented x3 HENMT Head: normal to inspection Eyes Sclera: sclerae normal Neck Neck: normal visual inspection Resp Effort & Inspection: normal respiratory effort GI Inspection: normal to inspection Palpation: soft, no hepatosplenomegaly, no masses and tender in the epigastrum General: bladder normal to palpation Bimanual Exam- Vagina & Uterus: bladder normal to palpation Skin General: no rashes or lesions noted Psych Mood: congruent mood Quality Reporting Tobacco Screening ([facility]) Smoking Status: Never smoker Assessment and Plan Assessment and Plan (1) Early satiety: Status: Chronic Plan: 47 yr old female with early satiety, bloating, belching, flatus, constipation. S he has MS, SLE, Sjogren's, Raynaud's. Gastric emptying study, discussed possible treatments if she has gastroparesis including metoclopramide, botulinum toxin, referral to [facility] EGD and colonoscopy Labs today including eval for other autoimmune conditions celiac, IBD Going to Located [facility] in early August Consider course of antibiotic such as doxycycline or xifaxan (2) Flatulence/gas pain/belching: Status: Chronic Plan: see above (3) Constipation: Status: Chronic Plan: see above Orders: Orders Gastric Emptying Study 07/27/22 K59.00 - Constipation, unspecified, R14.0 - Abdominal distension (gaseous), R68.81 - Early satiety CRP 07/27/22 K59.00 - Constipation, unspecified, R14.0 - Abdominal distension (gaseous), R68.81 - Early satiety Erythrocyte Sed Rate 07/27/22 K59.00 - Constipation, unspecified, R14.0 - Abdominal distension (gaseous), R68.81 - Early satiety Calprotectin, Stool 07/27/22 K59.00 - Constipation, unspecified, R14.0 - Abdominal distension (gaseous), R68.81 - Early satiety Celiac Disease Profile 07/27/22 K59.00 - Constipation, unspecified, R14.0 - Abdominal distension (gaseous), R68.81 - Early satiety Comprehensive Metabolic Profil 07/27/22 K59.00 - Constipation, unspecified, R14.0 - Abdominal distension (gaseous), R68.81 - Early satiety CBC W/Diff, Automated 07/27/22 K59.00 - Constipation, unspecified, R14.0 - Abdominal distension (gaseous), R68.81 - Early satiety Stool Lactoferrin/WBC 07/27/22 K58.9 - Irritable bowel syndrome without diarrhea, K59.00 - Constipation, unspecified, R14.0 - Abdominal distension (gaseous), R68.81 - Early satiety Immunoglobulins G/A/M/E 07/27/22 K59.00 - Constipation, unspecified, R14.0 - Abdominal distension (gaseous), R68.81 - Early satiety Miscellaneous Lab Procedure 07/27/22 K59.00 - Constipation, unspecified, R14.0 - Abdominal distension (gaseous), R68.81 - Early satiety Medications: New omeprazole 40 mg PO DAILY 90 caps 1RF I have examined the patient and the H&P has been reviewed. There are no clinical changes since date of exam.
[2022-10-05] MEDS: Lactated Ringers 1,000 ML 15 ML IV (10:39)
--- NOTE | 2022-10-05 11:38 | OP.EGD_ITS ---
Patient Name: Louise Urena Procedure Date: 10/05/2022 10:56 AM Date of : 1975 Age: 47 Procedure: Upper GI endoscopy Indications: Functional Dyspepsia Providers: Adam Geiger DO Referring MD: Lady Hernandez Medicines: Monitored Anesthesia Care Patient Profile: This is a 47 year old female. Refer to note in patient chart for documentation of history and physical. Patient has symptoms of chronic abdominal distention, chronic epigastric abdominal pain and chronic nausea. Complications: No immediate complications. Procedure: Pre-Anesthesia Assessment: - Prior to the procedure, a History and Physical was performed, and patient medications and allergies were reviewed. The patient is competent. The risks and benefits of the procedure and the sedation options and risks were discussed with the patient. All questions were answered and informed consent was obtained. Patient identification and proposed procedure were verified by the physician in the pre-procedure area. Mental Status Examination: alert and oriented. Airway Examination: normal oropharyngeal airway and neck mobility. Prophylactic Antibiotics: The patient does not require prophylactic antibiotics. Prior Anticoagulants: The patient has taken no previous anticoagulant or antiplatelet agents. After reviewing the risks and benefits, the patient was deemed in satisfactory condition to undergo the procedure. The anesthesia plan was to use monitored anesthesia care (MAC). Immediately prior to administration of medications, the patient was re-assessed for adequacy to receive sedatives. The heart rate, respiratory rate, oxygen saturations, blood pressure, adequacy of pulmonary ventilation, and response to care were monitored throughout the procedure. The physical status of the patient was re-assessed after the procedure. After obtaining informed consent, the endoscope was passed under direct vision. Throughout the procedure, the patient's blood pressure, pulse, and oxygen saturations were monitored continuously. The Colonoscope was introduced through the mouth, and advanced to the second part of duodenum. The upper GI endoscopy was accomplished without difficulty. The patient tolerated the procedure well. Scope In: 11:05:48 AM Scope Out: 11:10:36 AM Total Procedure Duration Time 0 hours 4 minutes 48 seconds Findings: The examined esophagus was normal. The Z-line was irregular and was found 38 cm from the incisors. Biopsies were taken with a cold forceps for histology. Verification of patient identification for the specimen was done. Estimated blood loss was minimal. Patchy mildly erythematous mucosa without bleeding was found in the gastric body. Biopsies were taken with a cold forceps for histology. Verification of patient identification for the specimen was done. Estimated blood loss was minimal. Patchy mildly erythematous mucosa without active bleeding and with no stigmata of bleeding was found in the duodenal bulb. Biopsies were taken with a cold forceps for histology. Biopsies were taken with a cold forceps for histology. Verification of patient identification for the specimen was done. Estimated blood loss was minimal. Impression: - Normal esophagus. - Z-line irregular, 38 cm from the incisors. Biopsied. - Erythematous mucosa in the gastric body. Biopsied. - Erythematous duodenopathy. Biopsied. Recommendation: - Discharge patient to home. - Resume previous diet. - Continue present medications. - Await pathology results. Procedure Code(s): --- Professional --- 47304, Esophagogastroduodenoscopy, flexible, transoral; with biopsy, single or multiple CPT copyright 2017 [employer]. All rights reserved. The codes documented in this report are preliminary and upon stapler machine review may be revised to meet current compliance requirements. Adam Geiger DO 10/05/2022 11:37:34 AM This report has been signed electronically. Number of Addenda: 0 Note Initiated On: 10/05/2022 10:56 AM
--- NOTE | 2022-10-05 11:38 | OP.CCLET_ITS ---
10/05/2022 Mary Re : Upper GI endoscopy procedure for Louise Urena Dear Mary This procedure was performed on Wednesday, October 05, 2022. My impressions and recommendations are as follows: Impressions : - Normal esophagus. - Z-line irregular, 38 cm from the incisors. Biopsied. - Erythematous mucosa in the gastric body. Biopsied. - Erythematous duodenopathy. Biopsied. Recommendations : - Discharge patient to home. - Resume previous diet. - Continue present medications. - Await pathology results. My findings are described in the full procedure note, which is enclosed. If I can be of further assistance, please feel free to contact me at . Sincerely, Adam Geiger, 10/05/2022 11:37:34 AM This report has been signed electronically.
--- NOTE | 2022-10-05 11:43 | OP.COLON_ITS ---
Patient Name: Louise Urena Procedure Date: 10/05/2022 11:11 AM Date of : 1975 Age: 47 Procedure: Colonoscopy Indications: Screening for colorectal malignant neoplasm Providers: Adam Geiger DO Referring MD: Lady Hernandez Medicines: Monitored Anesthesia Care Patient Profile: This is a 47 year old female. Refer to note in patient chart for documentation of history and physical. Patient has symptoms of chronic abdominal distention, chronic epigastric abdominal pain and chronic nausea. Last Colonoscopy: none. The patient's first colonoscopy is today. Complications: No immediate complications. Procedure: Pre-Anesthesia Assessment: - Prior to the procedure, a History and Physical was performed, and patient medications and allergies were reviewed. The patient is competent. The risks and benefits of the procedure and the sedation options and risks were discussed with the patient. All questions were answered and informed consent was obtained. Patient identification and proposed procedure were verified by the physician in the pre-procedure area. Mental Status Examination: alert and oriented. Airway Examination: normal oropharyngeal airway and neck mobility. Prophylactic Antibiotics: The patient does not require prophylactic antibiotics. Prior Anticoagulants: The patient has taken no previous anticoagulant or antiplatelet agents. After reviewing the risks and benefits, the patient was deemed in satisfactory condition to undergo the procedure. The anesthesia plan was to use monitored anesthesia care (MAC). Immediately prior to administration of medications, the patient was re-assessed for adequacy to receive sedatives. The heart rate, respiratory rate, oxygen saturations, blood pressure, adequacy of pulmonary ventilation, and response to care were monitored throughout the procedure. The physical status of the patient was re-assessed after the procedure. After I obtained informed consent, the scope was passed under direct vision. Throughout the procedure, the patient's blood pressure, pulse, and oxygen saturations were monitored continuously. The Colonoscope was introduced through the anus and advanced to the terminal ileum. The colonoscopy was performed without difficulty. The patient tolerated the procedure well. The quality of the bowel preparation was fair. Scope In: 11:12:25 AM Scope Withdrawal Time 0 hours 11 minutes 4 seconds Scope Out: 11:30:56 AM Total Procedure Duration Time 0 hours 18 minutes 31 seconds Findings: The digital rectal exam findings include decreased sphincter tone. Stool was found in the rectum, in the sigmoid colon, in the descending colon and in the cecum. Lavage of the area was performed using 200 - 500 mL, resulting in clearance with fair visualization. The terminal ileum appeared normal. Impression: - Preparation of the colon was fair. - Decreased sphincter tone found on digital rectal exam. - Stool in the rectum, in the sigmoid colon, in the descending colon and in the cecum. - The examined portion of the ileum was normal. - No specimens collected. Recommendation: - Discharge patient to home. - Resume previous diet. - Continue present medications. - Repeat colonoscopy in 5 years because the bowel preparation was suboptimal. Procedure Code(s): --- Professional --- G0121, Colorectal cancer screening; colonoscopy on individual not meeting criteria for high risk CPT copyright 2017 [employer]. All rights reserved. The codes documented in this report are preliminary and upon kersey department supervisor review may be revised to meet current compliance requirements. Adam Geiger DO 10/05/2022 11:42:53 AM This report has been signed electronically. Number of Addenda: 0 Note Initiated On: 10/05/2022 11:11 AM
--- NOTE | 2022-10-05 11:43 | OP.CCLET_ITS ---
10/05/2022 Mary Re : Colonoscopy procedure for Louise Urena Dear Mary This procedure was performed on Wednesday, October 05, 2022. My impressions and recommendations are as follows: Impressions : - Preparation of the colon was fair. - Decreased sphincter tone found on digital rectal exam. - Stool in the rectum, in the sigmoid colon, in the descending colon and in the cecum. - The examined portion of the ileum was normal. - No specimens collected. Recommendations : - Discharge patient to home. - Resume previous diet. - Continue present medications. - Repeat colonoscopy in 5 years because the bowel preparation was suboptimal. My findings are described in the full procedure note, which is enclosed. If I can be of further assistance, please feel free to contact me at . Sincerely, Adam Geiger, 10/05/2022 11:42:53 AM This report has been signed electronically.
== END 2022-10-05 12:19 | disposition home or self-care (01) ==
LOC: EN 10:01 → AC 10:02
PROVIDERS: Visit Provider Internal Medicine Gastroenterology
PROC: 0DJD8ZZ Inspection of Lower Intestinal Tract, Via Natural or Artificial Opening Endoscopic (ICD-10-PCS; CPT 45378; principal; 2022-10-05 10:55)
DX: Z12.11 Encounter for screening for malignant neoplasm of colon (principal); M32.9 Systemic lupus erythematosus, unspecified; M35.00 Sjogren syndrome, unspecified; Z79.899 Other long term (current) drug therapy; I73.00 Raynaud's syndrome without gangrene; K29.50 Unspecified chronic gastritis without bleeding; K21.00 Gastro-esophageal reflux disease with esophagitis, without bleeding
CPT/HCPCS: 43239; 45378; 88305; 88313; 88342; J7120; J2405

== ENCOUNTER → 2023-03-06 | Outpatient (CLI) | payer OTHER, SELFPAY ==
[2023-03-06 08:31] LABS: Absolute Neutrophil Count 3.7 X10^3/uL (2.0-7.7); Basophil# 0.06 X10^3/uL; Eosinophil# 0.07 X10^3/uL; Eosinophils% 1.2 % (0-5); Hematocrit 40.4 % (37-47); Hemoglobin 13.5 g/dL (12.0-15.0); Lymphocyte % 15.7 % (19-41); Mean Corp Hgb Conc 33.4 g/dL (32-36); Mean Corpuscular Hgb 31.3 pg (27.0-32.0); Mean Corpuscular Volume 93.5 fL (81-99); Mean Platelet Vol. 9.7 fl (6.2-12.0); Monocyte# 0.99 X10^3/uL; Monocyte% 17.3 % (0-10); NRBC Flagged by Analyzer 0 % (0-5); Neutrophil # 3.68 X10^3/uL (2.7-7.7); Neutrophil % 64.5 % (47-70); Platelet Count 380 K/mm3 (150-450); RBC Distribution Width CV 11.7 % (11.6-14.6); RBC Distribution Width SD 40.1 fl (35.1-43.9); Red Blood Count 4.32 M/mm3 (4.2-5.4); White Blood Count 5.7 K/mm3 (4.4-11.0)
[2023-03-06 09:05] LABS: ALB/GLOB Ratio 1.1 RATIO (0.9-2.4); AST(SGOT) 22 U/L (15-37); Alanine Aminotransfer ALT/SGPT 23 U/L (13-56); Albumin, Serum 3.9 g/dL (3.2-5.0); Alkaline Phosphatase 72 U/L (45-117); Anion Gap 1 (5-15); BUN 15 mg/dL (7-18); BUN/Creat Ratio 16.7 RATIO (10-20); Bilirubin, Direct 0.16 mg/dL (0.00-0.30); Calcium,Total 8.8 mg/dL (8.5-10.1); Chloride 106 mmol/L (98-107); Cholesterol 159 mg/dL (200); EST Glomerular Filtration Rate 71 mL/min (>60); Est Glom Filt Rate - Afr Amer 86 mL/min (>60); Globulin 3.6 g/dL (2.2-4.2); Glucose 86 mg/dL (74-106); High Density Lipoprotein 74 mg/dL; LDH 187 U/L (84-246); Phosphorus 3.2 mg/dL (2.5-4.9); Potassium 4.1 mmol/L (3.5-5.1); Protein, Total 7.5 g/dL (6.4-8.2); Sodium Level 137 mmol/L (136-145); Triglycerides 42 mg/dL; Very Low Density Lipoprotein 8 mg/dL (5-40)
[2023-03-06 09:29] LABS: Color, Urine Yellow (Yellow); Glucose, Dipstick Normal (Normal); Ketone-Dipstick Negative (Negative); Leukocyte Esterase-Dipstick Negative /ul (Negative); Nitrite-Dipstick Negative (Negative); Occult Blood-Urine Negative /ul (Negative); Protein-Dipstick Negative (Negative); Specific Gravity, Urine 1.015 (1.002-1.030); Urine Bilirubin Dipstick Negative (Negative); Urine Clarity Clear (Clear); Urine Urobilinogen Normal (Normal); Urine pH 6.5 (5.0 - 8.0)
== END | disposition home or self-care (01) ==
LOC: LAB 08:15
PROVIDERS: Visit Provider Internal Medicine Critical Care Medicine
DX: Z00.00 Encounter for general adult medical examination without abnormal findings (principal)

== ENCOUNTER → 2023-04-10 | Outpatient (CLI) | payer OTHER, SELFPAY ==
--- OUTSIDE RECORDS SUMMARY | 2023-04-10 09:40 | XMS RPT_ITS | CCD ---
Author Name Unknown Address [address] [place] [address] Organization [facility] Care Team Providers Care Control Tower Radio Operator Name Role Phone Butch LINARES, Yoon Cheema Primary Care Provider [phone] Serina Sandoval Unavailable [phone] Allergies Allergy Classification Reported Allergen(s) Allergy Type Date of Onset Reaction(s) Facility (2 sources) Morphine Drug Allergy 05-20-2008 [facility] Medications Completed/Discontinued Medications Medication Drug Class(es) Dates Sig (Normalized) Sig (Original) acetaminophen 325 mg oral tablet (2 sources) Start: 04-26-2009 acetaminophen(TYLE NOL 325 MG TAB) Indications: Fever Take two(2) tablets every four(4) to six(6) hours as needed for fever. 0 04/26/2009 Active Problems Active Problems Problem Classification Problem Date Documented Da te Episodic/Chronic Unclassified (1 source) APPOINTMENT CANCELLED Past or Other Problems Problem Classification Problem Date Documented Da te Episodic/Chronic Abdominal pain (2 sources) Abdominal pain; Translations: [Unspecified abdominal pain] Onset: 06-01-2009 06-01-2009 Episodic Results Test Name Value Interpretation Reference Range Facil ity Vital Signs Date Time Vital Sign Value Performing Clinician Faci lity 06-24-2021 15:36-0400 Body height 157.5 cm Demetrio Avendano MD Work Phone: [facility] 06-24-2021 15:36-0400 Body temperature 98.2 [degF] Demetrio Avendano MD Work Phone: [facility] 06-24-2021 15:36-0400 Body weight 62.6 kg Demetrio Avendano MD Work Phone: [facility] 06-24-2021 15:36-0400 Diastolic blood pressure 68 mm[Hg] Demetrio Avendano MD Work Phone: [facility] 06-24-2021 15:36-0400 Heart rate 103 /min Demetrio Avendano MD Work Phone: [facility] 06-24-2021 15:36-0400 SaO2% (BldA) [Mass fraction] 96 % Demetrio Avendano MD Work Phone: [facility] 06-24-2021 15:36-0400 Systolic blood pressure 112 mm[Hg] Demetrio Avendano MD Work Phone: [facility] Encounters Encounter Date Encounter Type Care Provider Facility Start: 08-01-2021 Telephone encounter Demetrio arroyo MD Work Phone: General Surgery Plan of Treatment Date Care Activity Detail Author Start: 04-29-2021 COVID-19 VACCINE (4 - Booster for Moderna series) COVID-19 VACCINE (4 - Booster for Moderna series) [facility] Start: 2018 COLOGUARD (FIT-DNA) COLOGUARD (FIT-D NA) [facility] Start: 2018 Colonoscopy COLONOSCOPY [facility] Start: 2018 COLORECTAL CANCER SCREENING COLORECTAL CANCER SCREENING [facility] Start: [address] [facility] Start: 2018 DIABETES SCREEN DIABETES SCREEN [facility] Start: 2018 FECAL OCCULT BLOOD FECAL OCCULT BLOO D [facility] Start: 2018 LIPID SCREEN LIPID SCREEN [facility] Start: 2018 SIGMOIDOSCOPY SIGMOIDOSCOPY [facility] Start: 2013 Mammography MAMMOGRAM [facility] Start: 2003 HPV TESTING HPV TESTING [facility] Start: 1994 PAP TESTING PAP TESTING [facility] Start: 1992 Urine microalbumin profile DTAP,TDAP ,TD (1 - Tdap) [facility] Start: 1991 HEPATITIS C SCREENING HEPATITIS C SC REENING [facility] Start: 1991 HIV SCREENING HIV SCREENING [facility] Start: 1985 Adult depression scr eening assessment DEPRESSION SCREENING [facility] Start: 1979 PNEUMOCOCCAL (1 - PCV) PNEUMOCOCCAL (1 - PCV) [facility] Payers Date Payer Category Payer Unknown MMO MMO [employer] [id number] 2020-Present [phone] [address] [place] [address] PPO 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 Author Type: Physician Type: Progress Notes Filed: 08/22/2021 9:49 AM Note Text: HISTORY AND PHYSICAL - BREAST COMPLAINT Praful Kahn 1975 REFERRING PHYSICIAN: Serina Sandoval DO CHIEF COMPLAINT: Abnormal mammogram (primary encounter diagnosis) HPI: The patient is a 46 year old female with a complaint of an abnormal mammogram. The patient had a mammogram with ultrasound on 06/09/21 which demonstrated a 1.8 cm mass in the left axillary area may represent a normal breast parenchyma or a true mass and correlation with an MRI might be useful. Ultrasound-guided biopsy may be also useful.: The patient denies a history of breast masses. She does perform a self breast exam routinely. She notes no skin changes. She denies nipple discharge. She notes no axillary masses. She notes no family history of breast problems. She notes no significant breast trauma or breast difficulties in the past. Patient states that the area that she is feeling in the upper outer quadrant actually has gotten smaller at times The patient is being seen by me today at the request of Dr. Sandoval for my opinion and advice regarding Abnormal mammogram (primary encounter diagnosis). PAST MEDICAL HISTORY Diagnosis Date - Acute appendicitis with generalized peritonitis - Febrile 04/26/2009 - Lupus (HCC) - MS (multiple sclerosis) (HCC) - Raynaud's disease - Sjoegren syndrome (HCC) PAST SURGICAL HISTORY Procedure Laterality Date - ARTHROSCOPY KNEE DIAGNOSTIC W/WO SYNOVIAL BX SPX Arthroscopy, knee, left - CORRECT BUNION,SIMPLE Bunion, bilat - LAPAROSCOPIC APPENDECTOMY 04/06/2009 - PAST SURGICAL HISTORY OF 2012 bladder sling - SEPTOPLASTY/SUBMUCOUS RESECJ W/WO CARTILAGE GRF Septoplasty Current Outpatient Medications Medication Sig Dispense Refill - ocrelizumab (OCREVUS INTRAVENOUS) Twice yearly - nortriptyline (PAMELOR) 10 mg capsule Take 10 mg by mouth once daily. - RHODA 0.35 mg tablet Take 1 tablet by mouth once daily. - VIT B COMPLEX 100 COMBO NO.2 ORAL Take by mouth once daily. - ergocalciferol 50,000 unit capsule (VITAMIN D2, DRISDOL) Take 50,000 Units by mouth one time a week. - HYDROXYCHLOROQUINE 200 MG TAB Take as directed. 0 - cyclosporine(RESTASIS 0.05 % EYE DROPPERETTE) 1 drop each eye twice daily 0 - multivitamins w-minerals/lut(CENTRUM SILVER TAB) Take one(1) tablet daily. 0 - CALCIUM CARBONATE 1,000 MG CHEWABLE TAB Take one(1) tablet daily. 0 - escitalopram oxalate(LEXAPRO 10 MG TAB) Take one(1) tablet daily. 0 - iron polysaccharides complex(POLY-IRON 150 MG CAP) Take one(1) tablet daily. 0 - acetaminophen(TYLENOL 325 MG TAB) Take two(2) tablets every four(4) to six(6) hours as needed for fever. 0 - interferon beta-1a/albumin(REBIF 44 MCG/0.5 ML SUB-Q SYRINGE) three times weekly 0 - COMPOUNDED PRESCRIPTION cholchesine 06.mg MWF 0 - alendronate sodium(FOSAMAX 70 MG TAB) biweekly 0 - PREDNISONE 1 MG TAB Take one(1) tablet daily. up to 3 times daily 0 - COMPOUNDED PRESCRIPTION quinacrine 100 mg three times weekly 0 No current facility-administered medications for this visit. ALLERGIES: Morphine PERSONAL HISTORY: Social History Tobacco Use - Smoking status: Never Smoker - Smokeless tobacco: Never Used Vaping Use - Vaping Use: Never used Substance Use Topics - Alcohol use: No Comment: socially - Drug use: No FAMILY HISTORY: FAMILY HISTORY Problem Relation Age of Onset - No Known Problems Mother - No Known Problems Father - No Known Problems Sister REVIEW OF SYMPTOMS: The review of systems data was entered by the nurse and reviewed by mo Nursing Notes: Estephania Carvalho LPN 06/24/2021 3:39 PM Signed REVIEW OF SYSTEMS: General: The patient notes fatigue, denies weight loss, denies weight gain, denies feeling hot, and denies feelings of cold. Eyes: The patient denies glaucoma, denies eye injury/surgery, wears glasses or contacts. Ear/Nose/Throat: The patient denies allergies, denies hayfever, denies ear infections, and denies bloody noses. Cardiovascular: The patient denies chest pain, denies heart disease, denies high blood pressure,denies cardiac stent, denies prior heart attack, denies irregular heart beat, denies high cholesterol, denies poor circulation, denies heart failure, other cardiac issues, denies claudication, denies cold feet, denies peripheral arterial stent. Respiratory: The patient denies tuberculosis, denies pneumonia, denies frequent cough, denies pulmonary embolism, denies shortness of breath, and denies coughing up blood. Gastrointestinal: The patient denies difficulty swallowing, denies acid reflux, denies ulcers, denies vomiting, denies jaundice/hepatitis, denies gallbladder problems, denies black or tarry stools, denies hemorrhoids, denies bleeding from rectum, denies diverticulitis, denies constipation, denies diarrhea, denies loss of s (more content not included)... [facility] Note 08-01-2021 Telephone Encounter - Estephania Carvalho LPN - 08/01/2021 2:55 PM EDTTelephone Encounter - Mariam Olson - 08/01/2021 12:20 PM EDT Note Date & Type Note Facility 08-01-2021 Miscellaneous Notes Patient was not seen in General Surgery, appointment was cancelled. Referring office calling for office notes from date of service on 06/[address] Enid Morrissey Office. As I can not tell for sure if patient was seen or not. documented in this encounter [facility] Nurse Note 06-24-2021 Estephania CarvalhoKAREN - 06/24/2021 3:33 PM EDT Note Date & Type Note Facility 06-24-2021 Nurse Note REVIEW OF SYSTEMS: General: The patient notes fatigue, denies weight loss, denies weight gain, denies feeling hot, and denies feelings of cold. Eyes: The patient denies glaucoma, denies eye injury/surgery, wears glasses or contacts. Ear/Nose/Throat: The patient denies allergies, denies hayfever, denies ear infections, and denies bloody noses. Cardiovascular: The patient denies chest pain, denies heart disease, denies high blood pressure,denies cardiac stent, denies prior heart attack, denies irregular heart beat, denies high cholesterol, denies poor circulation, denies heart failure, other cardiac issues, denies claudication, denies cold feet, denies peripheral arterial stent. Respiratory: The patient denies tuberculosis, denies pneumonia, denies frequent cough, denies pulmonary embolism, denies shortness of breath, and denies coughing up blood. Gastrointestinal: The patient denies difficulty swallowing, denies acid reflux, denies ulcers, denies vomiting, denies jaundice/hepatitis, denies gallbladder problems, denies black or tarry stools, denies hemorrhoids, denies bleeding from rectum, denies diverticulitis, denies constipation, denies diarrhea, denies loss of stool control, and denies hernias. Kidney/Bladder: The patient denies kidney stones, denies urine infections, and denies bloody urine. Skin: The patient denies a history of skin cancer, denies bleeding/changing moles, and denies a history of skin rash. Neurologic: The patient denies a history of epilepsy/convulsions, denies headaches, denies head/spinal injuries, and denies stroke/TIA. Psychiatric: The patient denies psychiatric medications, denies depression, and denies voices, denies substance abuse. Endocrine: The patient denies thyroid disorders, denies diabetes, and denies hormonal problems. Hematologic: The patient denies a history of bruising, denies bleeding, and denies anemia, denies blood clots. Infections: The patient denies a history of measles and mumps, denies rheumatic fever, and denies sexually transmitted diseases. Musculoskeletal: The patient denies back pain/injury, denies back problems, denies sciatica, denies knee/foot trouble, denies arthritis, or denies gout. When was patient's last Mammogram screening? 2021 Last Colonoscopy: none Estephania Carvalho LPN documented in this encounter [facility] Evaluation note Note Date & Type Note Facility documented in this encounter [facility] Summary Purpose Family History No Family History Records FoundNo Family History Records FoundNo Family History Records Found Advance Directives No Advanced Directives Records FoundNo Advanced Directives Records FoundNo Advanced Directives Records Found Additional Source Comments INFORMATION SOURCE (unrecogn ized section and content) DATE CREATED AUTHOR AUTHOR'S ORGANIZ ATION 01/04/[address] [facility] Olga anaya [place] DATE CREATED AUTHOR AUTHOR'S ORGANIZ ATION 09/15/2021 [facility] Source Comments (unrecognize d section and content) In the event this informatio n is protected by the Federal Confidentiality of Alcohol and Drug Abuse Patient Records regulations: The Federal rules restrict any use of the information to criminally investigate or prosecute any alcohol or drug abuse patient.[facility] the event this information is protected by the Federal Confidentiality of Alcohol and Drug Abuse Patient Records regulations: The Federal rules restrict any use of the information to criminally investigate or prosecute any alcohol or drug abuse patient.[facility] Reason for Visit (unrecogniz ed section and content) Reason Comments Release Of Medical Records Care Teams (unrecognized sec tion and content) Control Tower Radio Operator Relationship Specialty Start Date End Date Yoon Rae MD [address] [place] [address] PCP - General 04/24/09 Serina Sandoval [address] [place] [id number] Referring MALT LOADER 05/27/21 FOR RECORDS PERTAINING TO PATIENTS WHO ARE OR HAVE BEEN ENROLLED IN A CHEMICAL DEPENDENCY/SUBSTANCEABUSE PROGRAM, SOME INFORMATION MAY BE OMITTED. This clinical summary was aggregated from multiple sources. Caution should be exercised in using it in the provision of clinical care. This summary normalizes information from multiple sources, and as a consequence, information in this document may materially change the coding, format and clinical context of patient data. In addition, data may be omitted in some cases. CLINICAL DECISIONS SHOULD BE BASED ON THE PRIMARY CLINICAL RECORDS. [facility] Chloe + Isabel [facility]. provides no warranty or guarantee of the accuracy or completeness of information in this document.
[2023-04-10 10:23] LABS: Estradiol 225.9 pg/mL; Follicle Stimulating Hormone 8.3 mIU/mL
== END | disposition home or self-care (01) ==
LOC: LAB 09:35
PROVIDERS: PCP Nurse Practitioner Women's Health; Visit Provider Nurse Practitioner Women's Health
DX: N95.1 Menopausal and female climacteric states (principal)
CPT/HCPCS: 36415; 82670; 83001

== ENCOUNTER → 2023-04-14 | Outpatient (CLI) | payer OTHER, SELFPAY ==
--- NOTE | 2023-04-14 15:43 | US_ITS ---
INDICATION: AUB EXAMINATION: Ultrasound US Pelvis Non OB Complete With Transvaginal Imaging TECHNIQUE: Transabdominal and transvaginal pelvic ultrasound was performed. Grayscale, spectral waveform, and color flow Doppler evaluation of the adnexa. COMPARISON: No relevant prior comparison study available FINDINGS: UTERUS: Anteverted. The uterus measures 11.5 x 7.3 x 7 cm. The uterus is heterogeneous. There is no uterine mass visualized on the transabdominal study measuring about 2.9 x 3.8 x 3.2 cm consistent with uterine fibroid. There is another smaller mass measuring about 1.9 x 1.8 x 1.6 cm. The endometrial stripe measures 5 mm in AP diameter which is within normal limits. Nabothian cyst is seen in the cervix RIGHT OVARY: The right ovary measures 3.9 x 3.2 x 2.1 cm. Non-enlarged, normal echogenicity. There is normal arterial inflow and venous outflow present in the right ovary. LEFT OVARY: The left ovary measures 2 x 1.9 x 1.6 cm. Non-enlarged, normal echogenicity. There is normal arterial inflow and venous outflow present in the left ovary. FREE FLUID: None. US/Pelvic w/ Transvaginal IMPRESSION: 1. Heterogeneous uterus with uterine fibroids as described above. 2. Nabothian cyst in the cervix. Electronically Signed: Adarsh Seay MD at 11:28 EST ,
--- OUTSIDE RECORDS SUMMARY | 2023-04-14 16:04 | XMS RPT_ITS | CCD ---
Author Name Unknown Address [address] [place] [address] Organization [facility] Care Team Providers Care Deposition Reporter Name Role Phone Butch LINARES, Yoon Cheema Primary Care Provider Serina Sandoval Unavailable Allergies Allergy Classification Reported Allergen(s) Allergy Type Date of Onset Reaction(s) Facility (2 sources) Morphine Drug Allergy 05-20-2008 [facility] Medications Completed/Discontinued Medications Medication Drug Class(es) Dates [...] 157.5 cm Demetrio Avendano MD Work Phone: [facility] 06-24-2021 15:36-0400 Body temperature 98.2 [degF] Demetrio Avendano MD Work Phone: [facility] 06-24-2021 15:36-0400 Body weight 62.6 kg Demetrio Avendano MD Work Phone: [facility] 06-24-2021 15:36-0400 Diastolic blood pressure 68 mm[Hg] Demetrio Avendano MD Work Phone: [facility] 06-24-2021 15:36-0400 Heart rate 103 /min Demetrio Avendano MD Work Phone: [facility] 06-24-2021 15:36-0400 SaO2% (BldA) [Mass fraction] 96 % Demetrio Avendano MD Work Phone: [facility] 06-24-2021 15:36-0400 Systolic blood pressure 112 mm[Hg] Demetrio Avendano MD Work Phone: [facility] Encounters Encounter Date Encounter Type Care Provider Facility Start: 08-01-2021 Telephone encounter Demetrio arroyo MD Work Phone: General Surgery Plan of Treatment Date Care Activity Detail Author Start: 04-29-2021 COVID-19 VACCINE (4 - Booster for Moderna series) COVID-19 VACCINE (4 - Booster for Moderna series) [facility] Start: 2018 COLOGUARD (FIT-DNA) COLOGUARD (FIT-D NA) [facility] Start: 2018 Colonoscopy COLONOSCOPY [facility] Start: 2018 COLORECTAL CANCER SCREENING COLORECTAL CANCER SCREENING [facility] Start: [address] COLONOGRAPHY [facility] Start: 2018 DIABETES SCREEN DIABETES SCREEN [facility] Start: 2018 FECAL OCCULT BLOOD FECAL OCCULT BLOO D [facility] Start: 2018 LIPID SCREEN LIPID SCREEN [facility] Start: 2018 SIGMOIDOSCOPY SIGMOIDOSCOPY [facility] Start: 2013 Mammography MAMMOGRAM [facility] Start: 2003 HPV TESTING HPV TESTING [facility] Start: 1994 PAP TESTING PAP TESTING [facility] Start: 1992 Urine microalbumin profile DTAP,TDAP ,TD (1 - Tdap) [facility] Start: 1991 HEPATITIS C SCREENING HEPATITIS C SC REENING [facility] Start: 1991 HIV SCREENING HIV SCREENING [facility] Start: 1985 Adult depression scr eening assessment DEPRESSION SCREENING [facility] Start: 1979 PNEUMOCOCCAL (1 - PCV) PNEUMOCOCCAL (1 - PCV) [facility] Payers Date Payer Category Payer Unknown MMO MMO [employer] [id number] 2020-Present [phone] [address] [place] [address] PPO [id number] Social History Date Type Detail Facility Tobacco smoking stat [facility] Never smoked tobacco [facility] Start: 06-24-2021 Alcohol intake Current non-dr molder punch of alcohol (finding) [facility] Start: 04-24-2009 History SDOH Alcohol Comment socially [facility] Start: 1975 Sex Assigned At Not on file C [facility] Start: 06-14-2021 End: 06-24-2021 Exposure to SARS-CoV-2 (event) Not sure [facility] Progress note 08-22-2021 Note Date & Type Note Facility 08-22-2021 Note HNO ID: [id number] Author: Demetrio Avendano MD Service: ? Author [...] entered by the nurse and reviewed by ny Nursing Notes: Estephania Carvalho LPN 06/24/2021 3:39 [...] loss of s (more content not included)... [facility] Note 08-01-2021 Telephone Encounter - Estephania Carvalho [...] seen or not. documented in this encounter [facility] Nurse Note 06-24-2021 Estephania CarvalhoKAREN - 06/24/2021 [...] Estephania Carvalho LPN documented in this encounter [facility] Evaluation note Note Date & Type Note Facility documented in this encounter [facility] Summary Purpose Family History No Family History Records FoundNo Family History Records FoundNo Family History Records Found Advance Directives No Advanced Directives Records FoundNo Advanced Directives Records FoundNo Advanced Directives Records Found Additional Source Comments INFORMATION SOURCE (unrecogn ized section and content) DATE CREATED AUTHOR AUTHOR'S ORGANIZ ATION 01/04/2021 [facility] Olga anaya [place] DATE CREATED AUTHOR AUTHOR'S ORGANIZ ATION 09/15/2021 [facility] Source Comments (unrecognize d section and content) In the event this informatio n is protected by the Federal Confidentiality of Alcohol and Drug Abuse Patient Records regulations: The Federal rules restrict any use of the information to criminally investigate or prosecute any alcohol or drug abuse patient.[facility] the event this information is protected by the Federal Confidentiality of Alcohol and Drug Abuse Patient Records regulations: The Federal rules restrict any use of the information to criminally investigate or prosecute any alcohol or drug abuse patient.[facility] Reason for Visit (unrecogniz ed section and content) Reason Comments Release Of Medical Records Care Teams (unrecognized sec tion and content) Deposition Reporter Relationship Specialty Start Date End Date Yoon Rae MD [address] [place] [address] PCP - General 04/24/09 Serina Sandoval [address] [place] [id number] Referring FOOD SERVICE AMBASSADOR 05/27/21 FOR RECORDS PERTAINING TO PATIENTS WHO [...] BE BASED ON THE PRIMARY CLINICAL RECORDS. [facility] [employer] [facility]. provides no warranty or guarantee of the accuracy or completeness of information in this document.
== END | disposition home or self-care (01) ==
LOC: US 15:42
PROVIDERS: Referring Provider Nurse Practitioner Women's Health; Visit Provider Nurse Practitioner Women's Health
DX: N93.9 Abnormal uterine and vaginal bleeding, unspecified (principal); N95.1 Menopausal and female climacteric states
CPT/HCPCS: 76830; 76856

== ENCOUNTER → 2023-06-10 | Outpatient (CLI) | payer OTHER, SELFPAY ==
--- OUTSIDE RECORDS SUMMARY | 2023-06-10 20:50 | XMS RPT_ITS | CCD ---
Author Name Unknown Address [address] [place] [address] Organization [facility] Care Team Providers Care Target Worker Name Role Phone Butch LINARES, Yoon Cheema Primary Care Provider Serina Sandoval Unavailable Allergies Allergy Classification Reported Allergen(s) Allergy Type Date of Onset Reaction(s) Facility (2 sources) Morphine Drug Allergy 05-20-2008 [facility] Medications Completed/Discontinued Medications Medication Drug [...] Time Vital Sign Value Performing Clinician Faci [facility]elly 06-24-2021 15:36-0400 Body height 157.5 cm Demetrio Avendano MD Work Phone: [facility] 06-24-2021 15:36-0400 Body temperature 98.2 [degF] Demetrio Avendano MD Work Phone: [facility] 06-24-2021 15:36-0400 Body weight 62.6 kg Demetrio Avendano MD Work Phone: [facility] 06-24-2021 15:36-0400 Diastolic blood pressure 68 mm[Hg] Demetrio Avendano MD Work Phone: [facility] 06-24-2021 15:36-0400 Heart rate 103 /min Demetrio Avendano MD Work Phone: [facility] 06-24-2021 15:36-0400 SaO2% (BldA) [Mass fraction] 96 % Demetrio Avendano MD Work Phone: [facility] 06-24-2021 15:36-0400 Systolic blood pressure 112 mm[Hg] Demetrio Avendano MD Work Phone: [facility] Encounters Encounter Date Encounter Type Care Provider Facility Start: 08-01-2021 Telephone encounter Demetrio arroyo MD Work Phone: General Surgery Plan of Treatment Date Care Activity Detail Author Start: 04-29-2021 COVID-19 VACCINE (4 - Booster for Moderna series) COVID-19 VACCINE (4 - Booster for Moderna series) [facility] Start: 2018 COLOGUARD (FIT-DNA) COLOGUARD (FIT-D NA) [facility] Start: 2018 Colonoscopy COLONOSCOPY [facility] Start: 2018 COLORECTAL CANCER SCREENING COLORECTAL CANCER SCREENING [facility] Start: [address] [facility] Start: 2018 DIABETES SCREEN DIABETES SCREEN [facility] Start: 2018 FECAL OCCULT BLOOD FECAL OCCULT BLOO D [facility] Start: 2018 LIPID SCREEN LIPID SCREEN [facility] Start: 2018 SIGMOIDOSCOPY SIGMOIDOSCOPY [facility] Start: 2013 Mammography MAMMOGRAM [facility] Start: 2003 HPV TESTING HPV TESTING [facility] Start: 1994 PAP TESTING PAP TESTING [facility] Start: 1992 Urine microalbumin profile DTAP,TDAP ,TD (1 - Tdap) [facility] Start: 1991 HEPATITIS C SCREENING HEPATITIS C SC REENING [facility] Start: 1991 HIV SCREENING HIV SCREENING [facility] Start: 1985 Adult depression scr eening assessment DEPRESSION SCREENING [facility] Start: 1979 PNEUMOCOCCAL (1 - PCV) PNEUMOCOCCAL (1 - PCV) [facility] Payers Date Payer Category Payer Unknown MMO MMO [employer] [id number] 2020-Present [phone] [address] [place] [address] PPO 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 Author [...] entered by the nurse and reviewed by md Nursing Notes: Estephania Carvalho LPN 06/24/2021 3:39 [...] loss of s (more content not included)... [facility] Note 08-01-2021 Telephone Encounter - Estephania Carvalho [...] seen or not. documented in this encounter [facility] Nurse Note 06-24-2021 Estephania CarvalhoKAREN - [...] Estephania Carvalho LPN documented in this encounter [facility] Evaluation note Note Date & Type Note Facility documented in this encounter [facility] Summary Purpose Family History No Family History Records FoundNo Family History Records FoundNo Family History Records Found Advance Directives No Advanced Directives Records FoundNo Advanced Directives Records FoundNo Advanced Directives Records Found Additional Source Comments INFORMATION SOURCE (unrecogn ized section and content) DATE CREATED AUTHOR AUTHOR'S ORGANIZ ATION 01/04/[address] [facility] Olga Ochoa DATE CREATED AUTHOR AUTHOR'S ORGANIZ ATION 09/15/2021 [facility] Source Comments (unrecognize d section and content) In the event this informatio n is protected by the Federal Confidentiality of Alcohol and Drug Abuse Patient Records regulations: The Federal rules restrict any use of the information to criminally investigate or prosecute any alcohol or drug abuse patient.[facility] the event this information is protected by the Federal Confidentiality of Alcohol and Drug Abuse Patient Records regulations: The Federal rules restrict any use of the information to criminally investigate or prosecute any alcohol or drug abuse patient.[facility] Reason for Visit (unrecogniz ed section and content) Reason Comments Release Of Medical Records Care Teams (unrecognized sec tion and content) Target Worker Relationship Specialty Start Date End Date Yoon Rae MD [address] [place] [address] PCP - General 04/24/09 Serina Sandoval [address] [place] [address] [id number] Referring MANUFACTURING SPECIALIST 05/27/21 FOR RECORDS PERTAINING TO PATIENTS WHO [...] BE BASED ON THE PRIMARY CLINICAL RECORDS. [facility] [employer] [facility]. provides no warranty or guarantee of the accuracy or completeness of information in this document.
[2023-06-16 22:06] LABS: Pancreatic Elastase, Fecal 170 (>200)
[2023-06-21 22:06] LABS: Calprotectin, Stool 35 ug/g (0-120); Fats, Neutral Normal (.); Fats, Total Increased (.)
== END | disposition home or self-care (01) ==
LOC: LABSPEC 12:55
PROVIDERS: Visit Provider Internal Medicine Gastroenterology
DX: K58.9 Irritable bowel syndrome, unspecified (principal)
CPT/HCPCS: 82274; 82653; 82705; 83630; 83993; 87177; 87209; 87329; 87493; 87506

== ENCOUNTER → 2023-07-03 | Outpatient (CLI) | payer OTHER, SELFPAY ==
[2023-07-03 08:52] LABS: Absolute Lymphocyte Count 0.91 X10^3/uL (0.83-4.51); Absolute Neutrophil Count 3.2 X10^3/uL (2.0-7.7); Basophil# 0.04 X10^3/uL; Basophil% 0.8 % (0-1); Eosinophil# 0.11 X10^3/uL; Eosinophils% 2.2 % (0-5); Hematocrit 38.3 % (37-47); Lymphocyte # 0.91 X10^3/ul (0.83-4.51); Lymphocyte % 17.8 % (19-41); Mean Corp Hgb Conc 33.9 g/dL (32-36); Mean Corpuscular Hgb 31.5 pg (27.0-32.0); Mean Corpuscular Volume 92.7 fL (81-99); Mean Platelet Vol. 10.2 fl (6.2-12.0); Monocyte# 0.84 X10^3/uL; Monocyte% 16.4 % (0-10); NRBC Flagged by Analyzer 0 % (0-5); Neutrophil % 62.6 % (47-70); Platelet Count 408 K/mm3 (150-450); RBC Distribution Width CV 11.9 % (11.6-14.6); RBC Distribution Width SD 40.8 fl (35.1-43.9); Red Blood Count 4.13 M/mm3 (4.2-5.4); White Blood Count 5.1 K/mm3 (4.4-11.0)
[2023-07-03 08:56] LABS: Erythrocyte Sedimentation Rate 2 mm/hr (0-30)
[2023-07-03 09:08] LABS: AST(SGOT) 14 U/L (15-37); Alanine Aminotransfer ALT/SGPT 24 U/L (13-56); BUN 13 mg/dL (7-18); CRP < 2.90 mg/L (0.0-3.0); Creatinine, Serum 0.95 mg/dL (0.55-1.02); EST Glomerular Filtration Rate 66 mL/min (>60); Est Glom Filt Rate - Afr Amer 80 mL/min (>60)
[2023-07-03 11:07] LABS: Bacteria 0 SEEN /hpf (None Seen); Color, Urine Yellow (Yellow); Glucose, Dipstick Normal (Normal); Ketone-Dipstick Negative (Negative); Leukocyte Esterase-Dipstick 500 /ul (Negative); Mucous, Urine 0 SEEN /hpf (<or=2+); Nitrite-Dipstick Negative (Negative); Occult Blood-Urine Negative /ul (Negative); Protein-Dipstick Negative (Negative); Red Blood Cells-Urine 0 SEEN /hpf (0-5); Urine Bilirubin Dipstick Negative (Negative); Urine Clarity Clear (Clear); Urine Urobilinogen Normal (Normal); Urine pH 6.5 (5.0 - 8.0)
[2023-07-03 11:13] LABS: Squamous Epithelial Cells - UA 0-5 SEEN /hpf (5-10); White Blood Cells 0-5 SEEN /hpf (0-5)
[2023-07-04 08:08] LABS: Complement C3 118 mg/dL (82-167)
[2023-07-05 09:07] LABS: Anti-dsDNA Ab 4 IU/mL (0-9)
== END | disposition home or self-care (01) ==
LOC: LAB 07:51
PROVIDERS: Visit Provider Internal Medicine Rheumatology
DX: M35.1 Other overlap syndromes (principal); Z79.899 Other long term (current) drug therapy
CPT/HCPCS: 36415; 81001; 82565; 84450; 84460; 84520; 85025; 85652; 86140; 86160; 86225

== ENCOUNTER → 2023-08-27 | Outpatient (CLI) | payer OTHER, SELFPAY ==
--- NOTE | 2023-08-27 15:35 | BI_ITS ---
MAMMOGRAPHY - BILATERAL SCREENING REASON FOR EXAM: Female, 48 years old. Routine annual screening examination. PERTINENT HISTORY: Non-contributory. TECHNIQUE: Digital bilateral breast darvin (3D mammographic acquisition) in the CC and MLO projections. 2-D mediolateral oblique (MLO) and craniocaudad (CC) views of both breasts were obtained. CAD: Full Field Digital Mammography with Computer Added Detection was performed. COMPARISON: Comparison is made with prior study August 19, 2022 and June 09, 2021. FINDINGS: Breast Composition: The breasts are extremely dense, which lowers the sensitivity of mammography. There are no dominant masses or suspicious calcifications. No other significant abnormalities are identified. There has been no significant change since the prior study. BI/SCRN MAMM (CAD)W/DARVIN BILAT IMPRESSION: Stable bilateral screening mammogram. Yearly follow-up mammogram recommended. (A) ASSESSMENT CATEGORY: BIRADS Category 1: Negative. A letter regarding these results will be sent to the patient by the facility within 30 days. Approximately 10% of breast cancers are not detected by mammography. A normal mammogram should not delay biopsy of a clinically suspicious abnormality. [id number] Electronically Signed: Ernesto Hills MD at 8:54 EDT ,
== END | disposition home or self-care (01) ==
PROVIDERS: Referring Provider Nurse Practitioner Women's Health; Visit Provider Nurse Practitioner Women's Health
DX: Z12.31 Encounter for screening mammogram for malignant neoplasm of breast (principal)
CPT/HCPCS: 77063; 77067

== ENCOUNTER → 2023-09-07 | Outpatient (CLI) | payer OTHER, SELFPAY | END | disposition home or self-care (01) | LOC: LAB 08:57 | DX: R53.83 Other fatigue (principal) | CPT/HCPCS: 82533 ==

== ENCOUNTER → 2023-09-28 | Outpatient (CLI) | payer OTHER, SELFPAY ==
[2023-09-28 08:02] LABS: Bacteria 0 SEEN /hpf (None Seen); Mucous, Urine 0 SEEN /hpf (<or=2+); Red Blood Cells-Urine 0 SEEN /hpf (0-5); Squamous Epithelial Cells - UA 0 SEEN /hpf (5-10); White Blood Cells 0 SEEN /hpf (0-5)
[2023-09-28 08:22] LABS: Absolute Lymphocyte Count 0.85 X10^3/uL (0.83-4.51); Absolute Neutrophil Count 3.9 X10^3/uL (2.0-7.7); Basophil# 0.03 X10^3/uL; Basophil% 0.5 % (0-1); Eosinophil# 0.09 X10^3/uL; Eosinophils% 1.6 % (0-5); Hematocrit 41.6 % (37-47); Hemoglobin 13.7 g/dL (12.0-15.0); Lymphocyte # 0.85 X10^3/ul (0.83-4.51); Lymphocyte % 14.8 % (19-41); Mean Corp Hgb Conc 32.9 g/dL (32-36); Mean Corpuscular Hgb 30.6 pg (27.0-32.0); Mean Corpuscular Volume 92.9 fL (81-99); Mean Platelet Vol. 9.7 fl (6.2-12.0); Monocyte# 0.86 X10^3/uL; NRBC Flagged by Analyzer 0 % (0-5); Neutrophil # 3.87 X10^3/uL (2.7-7.7); Neutrophil % 67.4 % (47-70); Platelet Count 394 K/mm3 (150-450); RBC Distribution Width CV 12.2 % (11.6-14.6); RBC Distribution Width SD 41.8 fl (35.1-43.9); Red Blood Count 4.48 M/mm3 (4.2-5.4); White Blood Count 5.7 K/mm3 (4.4-11.0)
[2023-09-28 08:25] LABS: Erythrocyte Sedimentation Rate 1 mm/hr (0-30)
[2023-09-28 09:03] LABS: AST(SGOT) 15 U/L (15-37); Alanine Aminotransfer ALT/SGPT 25 U/L (13-56); BUN 16 mg/dL (7-18); CRP < 2.90 mg/L (0.0-3.0); Creatinine, Serum 0.93 mg/dL (0.55-1.02); EST Glomerular Filtration Rate 68 mL/min (>60); Est Glom Filt Rate - Afr Amer 82 mL/min (>60)
[2023-09-28 11:46] LABS: Color, Urine Yellow (Yellow); Glucose, Dipstick Normal (Normal); Ketone-Dipstick Negative (Negative); Leukocyte Esterase-Dipstick 25 /ul (Negative); Nitrite-Dipstick Negative (Negative); Occult Blood-Urine Negative /ul (Negative); Protein-Dipstick Negative (Negative); Urine Bilirubin Dipstick Negative (Negative); Urine Clarity Clear (Clear); Urine Urobilinogen Normal (Normal)
[2023-09-29 12:09] LABS: Complement C3 130 mg/dL (82-167)
[2023-09-29 14:10] LABS: Anti-dsDNA Ab 2 IU/mL (0-9)
== END | disposition home or self-care (01) ==
LOC: LAB 07:58
PROVIDERS: Visit Provider Internal Medicine Rheumatology
DX: M35.1 Other overlap syndromes (principal); Z79.899 Other long term (current) drug therapy
CPT/HCPCS: 81001; 82565; 84450; 84460; 84520; 85025; 85652; 86140; 86160; 86225

== ENCOUNTER → 2023-12-14 | Outpatient (CLI) | payer OTHER, SELFPAY ==
--- NOTE | 2023-12-14 10:15 | RAD_ITS ---
STUDY: X-RAY CHEST REASON FOR EXAM: Female, 48 years old. Cough. TECHNIQUE: Frontal and lateral views of the chest. COMPARISON: December 23, 2015 FINDINGS: The lungs are clear and expanded. Stable healed granulomatous calcifications. There is no demonstrated pleural abnormality. Normal size heart. Normal mediastinum and chelly. Normal visualized pulmonary arteries. Normal visualized aortic arch and descending thoracic aorta. Normal visualized thoracic spine. Normal visualized ribs, clavicles, and shoulders. No abnormality of the visualized soft tissue structures of the upper abdomen. RAD/Chest PA and Lateral IMPRESSION: Stable chest with no acute or active cardiopulmonary disease. Electronically Signed: Jose Perkins MD at 10:32 EDT ,
== END | disposition home or self-care (01) ==
LOC: RAD 10:13
DX: U07.1 COVID-19 (principal)
CPT/HCPCS: 71046

== ENCOUNTER → 2023-12-31 | Outpatient (CLI) | payer OTHER, SELFPAY ==
[2023-12-31 07:26] LABS: Bacteria 0 SEEN /hpf (None Seen); Mucous, Urine 0 SEEN /hpf (<or=2+); Red Blood Cells-Urine 0 SEEN /hpf (0-5); White Blood Cells 0 SEEN /hpf (0-5)
[2023-12-31 07:36] LABS: Absolute Lymphocyte Count 0.89 X10^3/uL (0.83-4.51); Absolute Neutrophil Count 3.6 X10^3/uL (2.0-7.7); Basophil# 0.05 X10^3/uL; Basophil% 0.9 % (0-1); Eosinophil# 0.15 X10^3/uL; Eosinophils% 2.6 % (0-5); Hematocrit 39.5 % (37-47); Hemoglobin 12.8 g/dL (12.0-15.0); Lymphocyte # 0.89 X10^3/ul (0.83-4.51); Lymphocyte % 15.5 % (19-41); Mean Corp Hgb Conc 32.4 g/dL (32-36); Mean Corpuscular Hgb 30.4 pg (27.0-32.0); Mean Corpuscular Volume 93.8 fL (81-99); Mean Platelet Vol. 9.5 fl (6.2-12.0); Monocyte# 1.02 X10^3/uL; Monocyte% 17.8 % (0-10); NRBC Flagged by Analyzer 0 % (0-5); Neutrophil # 3.59 X10^3/uL (2.7-7.7); Neutrophil % 62.7 % (47-70); Platelet Count 386 K/mm3 (150-450); RBC Distribution Width CV 12.4 % (11.6-14.6); RBC Distribution Width SD 42.5 fl (35.1-43.9); Red Blood Count 4.21 M/mm3 (4.2-5.4); White Blood Count 5.7 K/mm3 (4.4-11.0)
[2023-12-31 07:58] LABS: Erythrocyte Sedimentation Rate 1 mm/hr (0-30)
[2023-12-31 08:20] LABS: AST(SGOT) 15 U/L (15-37); Alanine Aminotransfer ALT/SGPT 21 U/L (13-56); BUN 15 mg/dL (7-18); CRP < 2.90 mg/L (0.0-3.0); Creatinine, Serum 0.84 mg/dL (0.55-1.02); EST Glomerular Filtration Rate 77 mL/min (>60); Est Glom Filt Rate - Afr Amer 93 mL/min (>60)
[2023-12-31 09:50] LABS: Color, Urine Yellow (Yellow); Glucose, Dipstick Normal (Normal); Ketone-Dipstick Negative (Negative); Leukocyte Esterase-Dipstick Negative /ul (Negative); Nitrite-Dipstick Negative (Negative); Occult Blood-Urine Negative /ul (Negative); Protein-Dipstick Negative (Negative); Specific Gravity, Urine 1.015 (1.002-1.030); Urine Bilirubin Dipstick Negative (Negative); Urine Clarity Clear (Clear); Urine Urobilinogen Normal (Normal)
[2023-12-31 10:04] LABS: Squamous Epithelial Cells - UA 0-5 SEEN /hpf (5-10)
[2024-01-01 04:08] LABS: Complement C3 123 mg/dL (82-167)
[2024-01-03 14:09] LABS: Anti-dsDNA Ab 3 IU/mL (0-9)
== END | disposition home or self-care (01) ==
LOC: LAB 01-01 09:47 → LABSPEC 01-01 09:52
PROVIDERS: PCP Internal Medicine Rheumatology; Referring Provider Internal Medicine Rheumatology; Visit Provider Internal Medicine Rheumatology
DX: Z79.899 Other long term (current) drug therapy (principal)
CPT/HCPCS: 36415; 81001; 82565; 84450; 84460; 84520; 85025; 85652; 86140; 86160; 86225

== ENCOUNTER → 2024-02-29 | Outpatient (CLI) | payer OTHER, SELFPAY ==
[2024-02-29 07:33] LABS: Absolute Lymphocyte Count 1.12 X10^3/uL (0.83-4.51); Basophil# 0.06 X10^3/uL; Eosinophil# 0.11 X10^3/uL; Eosinophils% 1.8 % (0-5); Hematocrit 38.7 % (37-47); Hemoglobin 13.1 g/dL (12.0-15.0); Lymphocyte # 1.12 X10^3/ul (0.83-4.51); Lymphocyte % 18.1 % (19-41); Mean Corp Hgb Conc 33.9 g/dL (32-36); Mean Corpuscular Hgb 30.9 pg (27.0-32.0); Mean Corpuscular Volume 91.3 fL (81-99); Mean Platelet Vol. 9.7 fl (6.2-12.0); Monocyte# 0.83 X10^3/uL; Monocyte% 13.4 % (0-10); NRBC Flagged by Analyzer 0 % (0-5); Neutrophil # 4.04 X10^3/uL (2.7-7.7); Neutrophil % 65.2 % (47-70); Platelet Count 391 K/mm3 (150-450); RBC Distribution Width CV 12.1 % (11.6-14.6); RBC Distribution Width SD 40.6 fl (35.1-43.9); Red Blood Count 4.24 M/mm3 (4.2-5.4); White Blood Count 6.2 K/mm3 (4.4-11.0)
[2024-03-01 06:36] LABS: Immunoglobulin A 177 mg/dL (87-352); Immunoglobulin G 1171 mg/dL (586-1602); Immunoglobulin M 78 mg/dL (26-217)
== END | disposition home or self-care (01) ==
LOC: LAB 07:22
PROVIDERS: PCP Internal Medicine Rheumatology; Visit Provider Psychiatry & Neurology Sleep Medicine
DX: G35 Multiple sclerosis (principal)
CPT/HCPCS: 36415; 82784; 85025

== ENCOUNTER 2024-05-17 11:23 | Outpatient (CLI) | payer OTHER, SELFPAY ==
[2024-05-17 12:19] LABS: Estradiol 83.9 pg/mL; Follicle Stimulating Hormone 29.8 mIU/mL; Free T3 2.4 pg/mL (2.18-3.98); Luteinizing Hormone 13.2 mIU/mL; T4 Free Direct 0.78 ng/dL (0.76-1.46)
== END 2024-05-17 23:59 | disposition home or self-care (01) ==
LOC: LAB 11:24
PROVIDERS: Nurse Practitioner Family; PCP Internal Medicine Rheumatology; Referring Provider Internal Medicine Rheumatology; Visit Provider Internal Medicine Rheumatology
DX: N95.1 Menopausal and female climacteric states (principal); R53.83 Other fatigue; Z13.29 Encounter for screening for other suspected endocrine disorder
CPT/HCPCS: 36415; 82670; 83001; 83002; 84439; 84443; 84481

== ENCOUNTER → 2024-06-24 | Outpatient (CLI) | payer OTHER, SELFPAY ==
[2024-06-24 12:24] LABS: Mucous, Urine 0 SEEN /hpf (<or=2+)
[2024-06-24 12:48] LABS: Erythrocyte Sedimentation Rate < 1 mm/hr (0-30)
[2024-06-24 12:50] LABS: Absolute Lymphocyte Count 1.33 X10^3/uL (0.83-4.51); Absolute Neutrophil Count 4.6 X10^3/uL (2.0-7.7); Basophil# 0.07 X10^3/uL; Eosinophils% 1.4 % (0-5); Hematocrit 39.4 % (37-47); Hemoglobin 13.4 g/dL (12.0-15.0); Lymphocyte # 1.33 X10^3/ul (0.83-4.51); Lymphocyte % 19.1 % (19-41); Mean Corpuscular Volume 91.2 fL (81-99); Mean Platelet Vol. 10.1 fl (6.2-12.0); Monocyte# 0.88 X10^3/uL; Monocyte% 12.6 % (0-10); NRBC Flagged by Analyzer 0 % (0-5); Neutrophil # 4.55 X10^3/uL (2.7-7.7); Neutrophil % 65.2 % (47-70); Platelet Count 347 K/mm3 (150-450); RBC Distribution Width CV 11.9 % (11.6-14.6); RBC Distribution Width SD 39.8 fl (35.1-43.9); Red Blood Count 4.32 M/mm3 (4.2-5.4)
[2024-06-24 13:14] LABS: AST(SGOT) 20 U/L (<=31); Alanine Aminotransfer ALT/SGPT 16 U/L (<=34); BUN 11 mg/dL (4-19); Creatinine, Serum 0.85 mg/dL (0.70-1.20); EST Glomerular Filtration Rate 83 (>60)
[2024-06-24 13:16] LABS: CRP < 3.00 mg/L (0.0-3.0)
[2024-06-24 13:36] LABS: Color, Urine Yellow (Yellow); Glucose, Dipstick Normal (Normal); Ketone-Dipstick Negative (Negative); Leukocyte Esterase-Dipstick 25 /ul (Negative); Nitrite-Dipstick Negative (Negative); Occult Blood-Urine Negative /ul (Negative); Protein-Dipstick 15 mg/dl (Negative); Specific Gravity, Urine 1.025 (1.002-1.030); Urine Bilirubin Dipstick Negative (Negative); Urine Clarity Clear (Clear); Urine Urobilinogen Normal (Normal)
[2024-06-24 13:44] LABS: Bacteria RARE /hpf (None Seen); Squamous Epithelial Cells - UA 0-5 SEEN /hpf (5-10); White Blood Cells 0-5 SEEN /hpf (0-5)
[2024-06-24 13:45] LABS: Red Blood Cells-Urine 0 SEEN /hpf (0-5)
[2024-06-27 05:07] LABS: Complement C3 118 mg/dL (82-167)
[2024-06-27 13:08] LABS: Anti-dsDNA Ab 2 IU/mL (0-9)
== END | disposition home or self-care (01) ==
LOC: LABSPEC 12:21
PROVIDERS: PCP Internal Medicine Rheumatology; Referring Provider Internal Medicine Rheumatology; Visit Provider Internal Medicine Rheumatology
DX: M35.1 Other overlap syndromes (principal); Z79.899 Other long term (current) drug therapy
CPT/HCPCS: 36415; 81001; 82565; 84450; 84460; 84520; 85025; 85652; 86140; 86160; 86225

== ENCOUNTER → 2024-07-05 | Outpatient (CLI) | payer OTHER, SELFPAY ==
[2024-07-06 08:09] LABS: Rubeola IgG Ab > 300.0 AU/mL (Immune >16.4)
== END | disposition home or self-care (01) ==
LOC: LABSPEC 08:35
PROVIDERS: PCP Internal Medicine Rheumatology
DX: Z11.59 Encounter for screening for other viral diseases (principal)
CPT/HCPCS: 86765

== ENCOUNTER → 2024-07-15 | Outpatient (CLI) | payer OTHER, SELFPAY | END | disposition home or self-care (01) | LOC: LABSPEC 13:33 | PROVIDERS: PCP Internal Medicine Rheumatology | DX: R30.0 Dysuria (principal) | CPT/HCPCS: 87077; 87086; 87088; 87186 ==

== ENCOUNTER → 2024-09-04 | Outpatient (CLI) | payer OTHER, SELFPAY ==
--- NOTE | 2024-09-04 15:32 | BI_ITS ---
EXAM: SCRN MAMM (CAD)W/DARVIN BILAT DATE: 09/04/2024 CLINICAL HISTORY: F, Age 49 y/o , SCREENING FOR BREAST CANCER BREAST CANCER RISK ASSESSMENT: Na TECHNIQUE: Bilateral screening digital breast tomosynthesis with 2D and 3D images. Computer aided detection. COMPARISON: Prior exam(s) were compared FINDINGS: TISSUE DENSITY: The breast tissue is heterogenously dense, which may obscure small masses. Bilateral Breast Mammographic Findings: No suspicious masses, calcifications or other abnormalities are identified. BI/SCRN MAMM (CAD)W/DARVIN BILAT IMPRESSION: OVERALL FINAL ASSESSMENT: BIRADS 1 NEGATIVE RECOMMENDATION: Routine annual follow-up in 1 Year A letter with findings and recommendations will be mailed to the patient. Reading Location: [id number]
== END | disposition home or self-care (01) ==
LOC: OPBI 15:31
PROVIDERS: PCP Internal Medicine Rheumatology; Referring Provider Nurse Practitioner Family; Visit Provider Nurse Practitioner Family
DX: Z12.31 Encounter for screening mammogram for malignant neoplasm of breast (principal)
CPT/HCPCS: 77063; 77067

== ENCOUNTER → 2024-09-07 | Outpatient (CLI) | payer OTHER, SELFPAY ==
[2024-09-07 11:18] LABS: Absolute Neutrophil Count 3.1 X10^3/uL (2.0-7.7); Basophil# 0.06 X10^3/uL; Basophil% 1.1 % (0-1); Eosinophil# 0.08 X10^3/uL; Eosinophils% 1.5 % (0-5); Hematocrit 41.4 % (37-47); Lymphocyte % 24.1 % (19-41); Mean Corp Hgb Conc 33.8 g/dL (32-36); Mean Corpuscular Volume 91.6 fL (81-99); Mean Platelet Vol. 9.9 fl (6.2-12.0); Monocyte% 14.8 % (0-10); NRBC Flagged by Analyzer 0 % (0-5); Neutrophil # 3.13 X10^3/uL (2.7-7.7); Neutrophil % 58.1 % (47-70); Platelet Count 369 K/mm3 (150-450); RBC Distribution Width SD 40.1 fl (35.1-43.9); Red Blood Count 4.52 M/mm3 (4.2-5.4); White Blood Count 5.4 K/mm3 (4.4-11.0)
[2024-09-08 05:07] LABS: Immunoglobulin A 186 mg/dL (87-352); Immunoglobulin G 1204 mg/dL (586-1602); Immunoglobulin M 70 mg/dL (26-217)
== END | disposition home or self-care (01) ==
LOC: LABSPEC 10:46
PROVIDERS: PCP Internal Medicine Rheumatology; Referring Provider Psychiatry & Neurology Sleep Medicine; Visit Provider Psychiatry & Neurology Sleep Medicine
DX: G35 Multiple sclerosis (principal)
CPT/HCPCS: 82784; 85025

== ENCOUNTER → 2024-12-30 | Outpatient (CLI) | payer OTHER, SELFPAY ==
--- OUTSIDE RECORDS SUMMARY | 2024-12-30 09:10 | XMS RPT_ITS | CCD ---
Author Organization [facility] Care Team Providers Care Student Support Advisor Name Role Phone Yoon Rae MD Primary Care Provider Serina Sandoval Unavailable Gopi STODDARD, RICHI Head Attending Provider Hollis INCINERATOR PLANT LABORER, INCINERATOR PLANT LABORER-C Cris Veronica Attending Provider YOON RAE Primary Care Provider YOON RAE Referring Provider FriendDr. Medina Attending Provider FriendDr. Medina Other Provider Rachel INCIN[employer]ATOR PLANT LABORER, INCINERATOR PLANT LABORER-C Judith Attending Provider [phone] Rachel INCINERATOR PLANT LABORER, INCINERATOR PLANT LABORER-C Judith Attending Provider FriendDr. Medina Attending Provider YOON RAE MD Attending Unavailable YOON RAE MD Primary Care Unavailable COLLETTE PARKER MD Primary Care Provider [phone] Health, Employee Attending Provider [phone] Lisa LINARES, Dr. Paez Attending Provider Friend Dr. Adam HENDRICKS Attending Provider COLLETTE PARKER MD Referring Provider Marifer NAIR-CRadha Attending Provider COLLETTE PARKER MD Attending Provider COLLETTE PARKER MD Primary Care Provider YOON RAE Attending Provider COLLETTE PARKER MD Primary Care Provider COLLETTE PARKER MD Referring Provider [facility] Doctor, Out of Attending Provider Dennis Carrillo NP-CRadha Referring Provider Lisa LINARES, Dr. Paez Attending Provider Dr. Philippe Gonzalez MD Referring Provider KEITH LINARES, COLLETTE Primary Care Provider [phone] COLLETTE PARKER MD Attending Provider KEITH LINARES, COLLETTE Referring Provider Marifer INCINERATOR PLANT LABORER-C, Radha Attending Provider Friend DO, Dr. Medina Attending Provider [facility] Doctor, Out of Primary Care Provider Darin James Attending Unavailable KEITH, RALLIS Primary Care Unavailable Health, Employee Attending Unavailable KEITH, RALLIS Primary Care Unavailable KEITH, RALLIS Attending Unavailable KEITH, RALLIS Referring Unavailable Meghan Salcedo Attending Unavailable KEITH, RALLIS Primary Care Unavailable Town Doctor, Out of Primary Care Unavailable FriendAdam Attending Unavailable KEITH, RALLIS Referring Unavailable KEITH, RALLIS Primary Care Unavailable Adam Geiger Attending Unavailable KEITH, RALLIS Referring Unavailable KEITH, RALLIS Primary Care Unavailable Radha Caicedo Attending Unavailable KEITH, RALLIS Referring Unavailable CLEMENTINA SANCHEZ Attending Unavailable KEITH, RALLIS Primary Care Unavailable Town Doctor, Out of Attending Unavailable KEITH, RALLIS Primary Care Unavailable KEITH, RALLIS Primary Care Unavailable Radha Caicedo Attending Unavailable Radha Caicedo Referring Unavailable KEITH, RALLIS Primary Care Unavailable Philippe Gonzalez Attending Unavailable Philippe Gonzalez Referring Unavailable CLEMENTINA SANCHEZ Attending Unavailable CLEMENTINA SANCHEZ Referring Unavailable KEITH, RALLIS Referring Unavailable KEITH, RALLIS Primary Care Unavailable KEITH, RALLIS Attending Unavailable KEITH, RALLIS Primary Care Unavailable Philippe Gonzalez Attending Unavailable KEITH, RALLIS Primary Care Unavailable KEITH, RALLIS Attending Unavailable KEITH, RALLIS Referring Unavailable Allergies Allergy Classification Reported Allergen(s) Allergy Type Date of Onset Reaction(s) Facility (20 sources) Morphine Drug Allergy 05-20-2008 [facility] (1 source) Morphine Drug Allergy 05-16-2024 [facility] Repository Medications Current Medications Medication Drug Class(es) Dates Sig (Normalized) Sig (Original) Cyclosporine (Restasis) 0.05 % dropperette (18 sources) Start: 07-29-2021 Cyclosporine (Restasis) 0.05 % dropperette Active 1 NMA OPHTHALMIC Q12H July 29, 2021 12:00am Start: 07-29-2021 Cyclosporine ( Restasis) 0.05 % dropperette Active 1 DRP OPHTHALMIC Q12H July 28, 2021 11:00pm Start: 07-29-2021 Cyclosporine ( Restasis) 0.05 % dropperette Active 1 DRP OPHTHALMIC Q12H July 29, 2021 12:00am doxycycline hyclate 100 mg oral capsule (20 sources) Tetracycline-class Drug Start: 08-25-2022 take 100 mg by mouth once daily Doxycycline Hyclate Active 100 MG PO DAILY August 25, 2022 4:36pm Start: 08-03-2022 End: 08-25-2022 take 1 capsule by mouth twice daily Doxycycline Hyclate 100 mg capsule Discontinued 100 mg PO TWICE A DAY August 14, 2022 12:00am August 25, 2022 4:37pm ergocalciferol 1.25 mg oral capsule (13 sources) Provitamin D2 Compound Start: 10-01-2022 Ergocalciferol (Ida min D2) 1,250 mcg (50,000 unit) capsule Active 1250 ug PO .WEEKLY October 01, 2022 12:00am Start: 04-18-2021 take 1 capsule by [facility] every week ergocalciferol 50,000 unit capsule (VITAMIN D2, DRISDOL) Take 50,000 Units by mouth one time a week. 0 04/18/2021 Active Comment on above: Take 50,000 Units by mouth one time a week. fluconazole 150 mg oral tablet (2 sources) Azole Antifungal Start: 08-15-19 Fluconazole (Diflucan) 150 mg tablet Active 150 MG PO Q3D 2 August 14, 2022 12:00am hydroxychloroquine sulfate 200 mg oral tablet (20 sources) Antimalarial, Antirheumatic Agent Start: 08-17-19 14 Hydroxychloroquine 200 MG tablet Active 20 mg PO DAILY August 16, 2013 12:00am Start: 08-16-2013 take 20 mg by mouth once daily Hydroxychloroquine Active 20 MG PO DAILY August 16, 2013 12:00am Start: 04-24-2009 HYDROXYCHLOROQ UINE 200 MG TAB Take as directed. 0 04/24/2009 Active Comment on above: Take as directed. Multivitamin With Iron (15 sources) Start: 08-16-2013 Multivitamin With Iron Active 1 EACH PO DAILY August 16, 2013 12:01pm Start: 08-16-2013 Multivitamin W ith Iron Active 1 EACH PO DAILY August 15, 2013 11:00pm Start: 08-16-2013 Multivitamin W ith Iron Active 1 EACH PO DAILY August 16, 2013 12:00am Multivitamin With Iron 1 EACH tablet (5 sources) Start: 08-16-2013 take 1 tablet by mouth once daily Multivitamin With Iron 1 EACH tablet Active 1 NMA PO DAILY August 16, 2013 12:00am 10 ml ocrelizumab 30 mg/ml injection (15 sources) Start: 07-27-2022 Ocrelizumab (O crevus) 30 mg/mL solution Active 600 mg IV .2X PER YEAR July 27, 2022 12:00am 600 mg intravenously; twice a year Start: 07-27-2022 Ocrelizumab (O crevus) 30 mg/mL solution Active 600 MG IV .2X PER YEAR July 27, 2022 12:00am 600 mg intravenously; twice a year Start: 07-27-2022 Ocrelizumab (O crevus) 30 mg/mL solution Active MG .Route July 27, 2022 12:00am twice a year Vibegron (1 source) Start: 10-16-2024 take 1 tablet by mouth once daily Vibegron (Gemtesa) 75 mg tablet Active 75 mg PO daily October 16, 2024 12:00am Vit B Complex With C #19-Fa-D3 (Nephronex-Sl) 1 EACH Tab.Rapdis (2 sources) Start: 08-16-2013 take 1 tablet by mouth once daily Vit B Complex With C #19-Fa-D3 (Nephronex-Sl) 1 EACH Tab.Rapdis Active 1 TABLET PO DAILY August 16, 2013 12:01pm Completed/Discontinued Medications Medication Drug Class(es) Dates Sig (Normalized) Sig (Original) acetaminophen 325 mg oral tablet (2 sources) Start: 04-26-2009 acetaminophen(TYLE NOL 325 MG TAB) Indications: Fever Take two(2) tablets every four(4) to six(6) hours as needed for fever. 0 04/26/2009 Active Comment on above: Take two(2) tablets every four(4) to six(6) hours as needed for fever. alendronic acid 70 mg oral tablet (2 sources) Bisphosphonate Start: 04-24-2009 alendronate sodium(FOSAMAX 70 MG TAB) biweekly 0 04/24/2009 Active Comment on above: biweekly amylase [id number] unt / lipase [id number] unt / protease [id number] unt delayed release oral capsule (12 sources) Start: 06-30-2023 End: 09-16-2023 Xbpvut-Ryemvrmx-Cn ylase (Creon) 36,000-114,000- 180,000 unit capsule,delayed release(DR/EC) Discontinued 3 NMA PO before meals 900 June 30, 2023 12:31pm September 16, 2023 8:26am take 3 capsules by mouth with meals and 1 capsule with snack, max 10 capsules per day. Start: 06-28-2023 End: 06-30-2023 take [id number] capsules by mouth three times daily at mealtime Ucpttk-Bwecooqp-Wtghfho (Creon) 36,000-114,000- 180,000 unit capsule,delayed release(DR/EC) Discontinued 1 NMA PO THREE TIMES A DAY 300 June 28, 2023 12:00am June 30, 2023 12:33pm administer with meals and/or snacks calcium carbonate 1000 mg chewable tablet (2 sources) Start: 04-24-2009 CALCIUM CARBON ATE 1,000 MG CHEWABLE TAB Take one(1) tablet daily. 0 04/24/2009 Active Comment on above: Take one(1) tablet d aily. COMPOUNDED PRESCRIPTION (4 sources) Start: 04-24-2009 COMPOUNDED PRE SCRIPTION cholchesine 06.mg MWF 0 04/24/2009 Active Start: 04-24-2009 COMPOUNDED PRE SCRIPTION quinacrine 100 mg three times weekly 0 04/24/2009 Active Comment on above: cholchesine 06.mg MW F quinacrine 100 mg th ree times weekly cycloSPORINE 0.5 mg/ml ophthalmic suspension (2 sources) Calcineurin Inhibitor Immunosuppressant Start: 2009 take 1 drop(s) into the eye(s) twice daily cyclosporine(RESTASIS 0.05 % EYE DROPPERETTE) 1 drop each eye twice daily 0 04/24/2009 Active Comment on above: 1 drop each eye twic e daily escitalopram 10 mg oral tablet (2 sources) Serotonin Reuptake Inhibitor Start: 2009 escitalopram oxalate(LEXAPRO 10 MG TAB) Take one(1) tablet daily. 0 05/21/2009 Active Comment on above: Take one(1) tablet d aily. 0.5 ml interferon beta-1a 0.088 mg/ml prefilled syringe (2 sources) Recombinant Human Interferon beta Start: 2009 interferon beta-1a/albumin(REBIF 44 MCG/0.5 ML SUB-Q SYRINGE) three times weekly 0 04/24/2009 Active Comment on above: three times weekly lubiprostone 0.024 mg oral capsule (5 sources) Chloride Channel Activator Start: 2023 End: 2024 take 1 capsule by mouth twice daily Lubiprostone (Amitiza) 24 mcg capsule Discontinued 24 ug PO TWICE A DAY 120 60 2 September 15, 2023 12:00am March 31, 2024 4:36pm multivitamins w-minerals/lut(CENTRU M SILVER TAB) (2 sources) Start: 2009 multivitamins w-minerals/lut(CENTRU M SILVER TAB) Take one(1) tablet daily. 0 04/24/2009 Active Comment on above: Take one(1) tablet d aily. norethindrone 0.35 mg oral tablet (2 sources) Start: 2021 take 1 tablet by mouth once daily RHODA 0.35 mg tablet Take 1 tablet by mouth once daily. 0 06/09/2021 Active Comment on above: Take 1 tablet by camacho th once daily. nortriptyline 10 mg oral capsule (2 sources) Tricyclic Antidepressant Start: 2021 take 1 capsule by mouth once daily nortriptyline (PAMELOR) 10 mg capsule Take 10 mg by mouth once daily. 0 06/20/2021 Active Comment on above: Take 10 mg by mouth once daily. ocrelizumab (OCREVUS INTRAVENOUS) (2 sources) Start: 2019 ocrelizumab (OCREVUS INTRAVENOUS) Twice yearly 0 10/18/2019 Active Comment on above: Twice yearly omeprazole 40 mg delayed release oral capsule (20 sources) Proton Pump Inhibitor Start: 2022 End: 2023 take 1 capsule by mouth once daily Omeprazole 40 mg capsule,delayed release(DR/EC) Discontinued 40 mg PO DAILY 90 3 August 17, 2022 2:24pm September 15, 2023 3:46pm polysaccharide iron complex 150 mg oral capsule (2 sources) Start: 2009 iron polysaccharides complex(POLY-IRON 150 MG CAP) Take one(1) tablet daily. 0 05/09/2009 Active Comment on above: Take one(1) tablet d sue. predniSONE 10 mg oral tablet (20 sources) Start: 2014 End: 2021 take 6 tablets by mouth once daily, then take 4 tablets by mouth once daily, then take 2 tablets by mouth once daily, then take 1 tablet by mouth once daily Prednisone 10 MG tablet Discontinued 10 mg PO DAILY 48 0 November 30, 2014 12:00am July 29, 2021 3:00pm 6 po qd x 3 days, 4 po qd x 3 days, 2 po qd x 3 days, 1 po qd x 3 days Start: 04-24-2009 PREDNISONE 1 M G TAB Take one(1) tablet daily. up to 3 times daily 0 04/24/2009 Active Comment on above: Take one(1) tablet d aily. up to 3 times daily rifAXIMin 550 mg oral tablet (20 sources) Rifamycin Antibacterial Start: End: take 1 tablet by mouth three times daily Rifaximin (Xifaxan) 550 mg tablet Discontinued 550 mg PO THREE TIMES A DAY 90 3 May 30, 2024 8:50am May 30, 2024 8:50am Start: 09-16-2023 End: 05-19-2024 take 1 tablet by mouth twice daily Rifaximin (Xifaxan) 550 mg tablet Discontinued 550 mg PO TWICE A DAY 60 0 May 11, 2024 4:58pm May 19, 2024 3:50pm Start: 04-29-2023 End: 09-15-2023 take 1 tablet by mouth three times daily Rifaximin (Xifaxan) 550 mg tablet Discontinued 550 mg PO THREE TIMES A DAY 14 0 July 07, 2023 7:32am September 15, 2023 3:47pm leaving for vacation soon Start: 11-04-2022 End: 11-18-2022 take 1 tablet by mouth three times daily Rifaximin (Xifaxan) 550 mg tablet Discontinued 550 mg PO THREE TIMES A DAY 42 14 0 November 04, 2022 12:00am November 17, 2022 12:00am November 18, 2022 12:05am Tenapanor (Ibsrela) 50 mg tablet (5 sources) Start: 02-01-2024 End: 03-31-2024 take 1 tablet by mouth once daily at dinner Tenapanor (Ibsrela) 50 mg tablet Discontinued 50 mg PO TWICE A DAY 60 2 February 01, 2024 1:00am March 31, 2024 4:37pm must administer immediately before first meal of day/breakfast and dinner Start: 02-01-2024 End: 03-31-2024 take 1 tablet by mouth once daily at dinner Tenapanor (Ibsrela) 50 mg tablet Discontinued 50 mg PO TWICE A DAY 60 February 01, 2024 1:00am March 31, 2024 4:37pm must administer immediately before first meal of day/breakfast and dinner VIT B COMPLEX 100 COMBO NO.2 ORAL (2 sources) VIT B COMPLEX 10 0 COMBO NO.2 ORAL Take by mouth once daily. 0 Active Comment on above: Take by mouth once d aily. Vit B Complex And C 19-Fa-D3 (Nephronex-Sl) 1 EACH tablet,disintegrati ng (3 sources) Start: 08-16-2013 End: 04-05-2023 take 1 tablet by mouth once daily Vit B Complex And C 19-Fa-D3 (Nephronex-Sl) 1 EACH tablet,disintegrating Discontinued 1 {tbl} PO DAILY August 16, 2013 12:00am April 05, 2023 3:43pm Vit B Complex With C #19-Fa-D3 (Nephronex-Sl) 1 EACH tablet,disintegrati ng (15 sources) Start: 08-16-2013 End: 04-05-2023 Vit B Complex With C #19-Fa-D3 (Nephronex-Sl) 1 EACH tablet,disintegrating Discontinued 1 {tbl} PO DAILY August 16, 2013 12:00am April 05, 2023 3:43pm Start: 08-16-2013 End: 04-05-2023 take 1 tablet by mouth once daily Vit B Complex With C #19-Fa-D3 (Nephronex-Sl) 1 EACH tablet,disintegrating Discontinued 1 TABLET PO DAILY August 16, 2013 12:00am April 05, 2023 3:43pm Start: 08-16-2013 End: 04-05-2023 take 1 tablet by mouth once daily Vit B Complex With C #19-Fa-D3 (Nephronex-Sl) 1 EACH tablet,disintegrating Discontinued 1 TABLET PO DAILY August 15, 2013 11:00pm April 05, 2023 2:43pm Start: 08-16-2013 take 1 tablet by camacho th once daily Vit B Complex With C #19-Fa-D3 (Nephronex-Sl) 1 EACH tablet,disintegrating Active 1 TABLET PO DAILY August 15, 2013 11:00pm Start: 08-16-2013 take 1 tablet by camacho th once daily Vit B Complex With C #19-Fa-D3 (Nephronex-Sl) 1 EACH tablet,disintegrating Active 1 TABLET PO DAILY August 16, 2013 12:00am Problems Active Problems Problem Classification Problem Date Documented Da te Episodic/Chronic Allergic reactions (20 sources) Contact dermatitis due to poison jaclyn; Translations: [Allergic contact dermatitis due to plants, except food] Episodic Benign neoplasm of uterus (5 sources) Uterine leiomyoma; Translations: [Leiomyoma of uterus, unspecified] 09-16-2023 Episodic Genitourinary symptoms and ill-defined conditions (2 sources) Mixed incontinence; Translations: [Mixed incontinence] Onset: 06-22-2023 Chronic Genitourinary symptoms and ill-defined conditions (1 source) Dysuria; Translations: [Dysuria] Onset: 07-19-2024 Episodic Malaise and fatigue (2 sources) Other fatigue; Translations: [Other fatigue] Onset: 06-22-2023 Episodic Menopausal disorders (17 sources) Menopausal syndrome; Translations: [Menopausal and female climacteric states] 04-05-2023 Chronic Multiple sclerosis (18 sources) Multiple sclerosis; Translations: [Multiple sclerosis] Onset: 06-22-2023 07-27-2022 Chronic Other circulatory disease (15 sources) Raynaud's disease; Translations: [Raynaud's syndrome without gangrene] 07-27-2022 Chronic Other female genital disorders (5 sources) Abnormal uterine bleeding; Translations: [Abnormal uterine and vaginal bleeding, unspecified] 09-16-2023 Chronic Other gastrointestinal disorders (9 sources) Irritable bowel syndrome; Translations: [Irritable bowel syndrome without diarrhea] 04-29-2023 Chronic Other gastrointestinal disorders (2 sources) Irritable bowel syndrome without diarrhea; Translations: [Irritable bowel syndrome] 04-29-2023 Chronic Other gastrointestinal disorders (5 sources) Bloating symptom; Translations: [Abdominal distension (gaseous)] 07-27-2022 Episodic Other gastrointestinal disorders (17 sources) Constipation; Translations: [Constipation, unspecified] 07-27-2022 Episodic Other gastrointestinal disorders (5 sources) Constipation, unspecified; Translations: [Constipation, unspecified] 07-27-2022 Episodic Other gastrointestinal disorders (7 sources) Abdominal distension (gaseous); Translations: [Flatulence, eructation, and gas pain] 07-27-2022 Episodic Other gastrointestinal disorders (12 sources) Abdominal bloating; Translations: [Abdominal distension (gaseous)] 07-27-2022 Episodic Other nutritional; endocrine; and metabolic disorders (9 sources) Body mass index 25-29 - overweight; Translations: [Overweight] 05-17-2024 Episodic Other screening for suspected conditions (not mental disorders or infectious disease) (2 sources) Encounter for screening mammogram for malignant neoplasm of breast; Translations: [Encounter for screening for other suspected endocrine disorder] Onset: 07-17-2024 Episodic Residual codes; unclassified (17 sources) Early satiety; Translations: [Early satiety] 07-27-2022 Episodic Residual codes; unclassified (7 sources) Early satiety; Translations: [Early satiety] 07-27-2022 Episodic Residual codes; unclassified (5 sources) History of endometrial ablation; Translations: [Other specified postprocedural states] 09-16-2023 Episodic Systemic lupus erythematosus and connective tissue disorders (20 sources) Systemic lupus erythematosus; Translations: [Systemic lupus erythematosus, unspecified] Onset: 06-22-2023 07-27-2022 Chronic Unclassified (1 source) APPOINTMENT CANCELLED Viral infection (1 source) COVID-19; Translations: [COVID-19] Onset: 12-15-2023 Past or Other Problems Problem Classification Problem Date Documented Da te Episodic/Chronic Abdominal pain (2 sources) Abdominal pain; Translations: [Unspecified abdominal pain] Onset: 06-01-2009 06-01-2009 Episodic Immunizations and screening for infectious disease (1 source) Encounter for screening for other viral diseases; Translations: [Encounter for screening for other viral diseases] Onset: 07-11-2024 Episodic Other aftercare (1 source) Other residential (current) drug therapy; Translations: [Other 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 (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) drug therapy] Onset: 01-23-2024 Episodic Results Test Name Value Interpretation Reference Range Facility Gastroenterology Visit Repor ton 10-16-2024 Gastroenterology Visit Report [facility] Gastroenterology [address] [place] [address] OFFICE VISIT Date of Service: 10/16/24 MR#: [id number] Acct: [id number] Name: PRAFUL KAHN Rep #: [id number] : 1975 Provider: Adam Geiger DO Age/Sex: 49/F Location: [facility] Status: Signed Intake Vital Signs 05/16/24 15:27 Height 5 ft 3 in Intake Visit Reasons: 6 M FU Allergies morphine Allergy (Verified 05/16/24 15:28) Hives Medications ???Medication ???Instructions ???Recorded ???Confirmed ???Type hydroxychloroquine 200 mg tablet 20 mg PO DAILY 08/16/13 10/16/24 H istory multivitamin with iron 1 ea PO DAILY 08/16/13 10/16/24 Hi story cyclosporine 0.05 % eye drops in a 1 drp ophthalmic (eye) Q12H 05/06/1710/16/24 History dropperette (Restasis) ocrelizumab 30 mg/mL intravenous 600 mg IV .2X PER YEAR 07/27/22 History solution (Ocrevus) ergocalciferol (vitamin D2) 1,250 1,250 mcg PO .WEEKLY 10/01/22 History mcg (50,000 unit) capsule rifaximin 550 mg tablet (Xifaxan) 550 mg PO TID #180 TABLETS 10/16/24 Rx vibegron 75 mg tablet (Gemtesa) 75 mg PO QDAY 10/16/24 10/16/24 Hi story PFSH Medical History Small intestinal bacterial overgrowth (SIBO) Wears glasses GERD (gastroesophageal reflux disease) Non-smoker Surgical History History of endometrial ablation H/O knee surgery History of appendectomy H/O nasal septoplasty Family History Uncle Cancer Liver Social History household members: spouse number of children: 1 current occupational status: employed 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 *BGI established .04.20 with early satiety ? Biochemical CBC, ESR, CMP, LFT, CRP, celiac, IBD without pertinent abnormality. ? Stool calprotectin, lactoferrin WNL ? Biochemical 5..23 coag, lupus, viper venom WNL ? Gastric emptying study 08.13.22 45.23 minutes ? EGD and colonoscopy 10.05.22 EGD irregular Zline 38cm; gastritis; duodenitis. ? Colonoscopy decreased sphincter tone; stool in rectum. OV 8.9.23 Feels she is doing better than previously; particularly with the two rounds of antibiotic therapy. Continues with omeprazole. BM occur approximately every three days with stools ranging between loose and hard with hard stool being predominant. Xifaxan start. OV 2..24 has been using supergreen BID and MiraLAX QD; with this regimen she is having routine BM four days a week and have no BM or small hard stools the rest of the time will occasionally have loose stools and mucus in her stool. Bad breath has returned. OV 6.19.24 pt reports continued symptoms from previous visit. Pt reports ongoing constipation and stools that vary. Reports daily gas and bloating that get worse throughout the day. Pt reports that she feels better if she does not eat. Pt is no longer taking xifaxan or omeprazole, continues with Creon, supergreens, and miralax; unsure if current regimen is helpful. OV 1.3.25 pt reports that she is doing better since last visit. Pt states that she began having HB again two weeks ago, has taken omeprazole in the past, but was not helpful. Pt reports that she is having a bm every other day and feels that her symptoms are stable. OV 7..25 pt reports that she is feeling well overall and denies current GI symptoms of concern; notes symptoms of gas / bloating have improved. Pt continues with Xifaxan. ROS Const Constitutional: No fatigue, fever(s) or weight change ENT ENT: No difficulty swallowing Gastro GI: Positive for bloating and excessive flatus; No abdominal pain, belching, change in bowel habits, change in stool character, coffee ground emesis, constipation, cramping, diarrhea, heartburn, difficulty swallowing, feeling full early, incontinent of stools, Vomiting blood/hematemesis, Blood in stool, loose stools, Black,tarry stools, nausea/dyspepsia, pain with swallowing, vomiting or other Musc Musculoskeletal: Positive for joint pain Skin Skin: No yellowing of the eye or itchy eyes Psych Psychiatric: No anxiety and (more content not included)... Normal [facility] Immunoglobulins G/A/Mon 08-27 IMMUNOGLOB A QN 186 mg/dL Normal 87-352 [facility] Comment on above: Order Comment: N Performed By: #### M [id number] #### [facility] [address] [place], [address] IMMUNOGLOB G QN 1204 mg/dL Normal [id number] [facility] Comment on above: Order Comment: N Performed By: #### M [id number] #### [facility] [address] [place], [address] IMMUNOGLOB M QN 70 mg/dL Normal 26-217 [facility] Comment on above: Order Comment: N Result Comment: Perf ormed at: - [facility] [address] [id number] Pharmacogeneticist: Ej Landers PhD, Phone: [phone] Performed By: #### M [id number] #### [facility] [address] [place], [address] Absolute lymphocyte countOrd ered By: Philippe Gonzalez on 09-07-2024 Lymphocytes Auto (Unsp spec) [#/Vol] 1.30 10*3/uL 0.83-4.51 [facility] Absolute neutrophil countOrd ered By: Philippe Gonzalez on 09-07-2024 Neutrophils (Bld) [#/Vol] 3.1 10*3/uL 2.0-7.7 [facility] Automated lymphocyte count a s percentage of total leukocytesOrdered By: Philippe Gonzalez on 09-07-2024 Lymphocytes/100 WBC Auto (Unsp spec) 24.1 % 19-41 [facility] Basophil percentageOrdered B y: Philippe oGnzalez on 06-12-2025 Basophils/100 WBC (Bld) 1.1 % High 0-1 [facility] CBC W/Diff, Automatedon 08-27-2024 Absolute Lymph 1.30 X10 3/uL Normal 0.83-4.51 [facility] Comment on above: Performed By: #### M 100.2200 #### [facility] [address] [place], [address] Absolute Neut 3.1 X10 3/uL Normal 2.0-7.7 [facility] Comment on above: Performed By: #### M 100.2200 #### [facility] [address] [place], [address] Basophils/100 WBC (Bld) 1.1 % High 0-1 [facility] Comment on above: Performed By: #### M 100.2200 #### [facility] [address] [place], [address] Eosinophils/100 WBC (Bld) 1.5 % Normal 0-5 [facility] Comment on above: Performed By: #### M 100.2200 #### [facility] [address] [place], [address] Erythrocyte distribution width (RBC) [Ratio] 12.0 % Normal 11.6-14.6 [facility] Comment on above: Performed By: #### M 100.2200 #### [facility] [address] [place], [address] Hematocrit (Bld) [Volume fraction] 41.4 % Normal 37-47 [facility] Comment on above: Performed By: #### M 100.2200 #### [facility] [address] [place], [address] Hemoglobin (Bld) [Mass/Vol] 14.0 g/dL Normal 12.0-15.0 [facility] Comment on above: Performed By: #### M 100.2200 #### [facility] [address] [place], [address] IG% 0.400 Normal 0.0-0.9 [facility] Comment on above: Result Comment: IG% - Immature Granulocytes (promyelocytes, myelocytes and metamyelocytes) > 1% indicates that a LEFT SHIFT is Present. Performed By: #### M 100.2200 #### [facility] [address] [place], [address] Lymphocytes/100 WBC (Bld) 24.1 % Normal 19-41 [facility] Comment on above: Performed By: #### M 100.2200 #### [facility] [address] [place], [place] [address]. [place], [address] MCH (RBC) [Entitic mass] 31.0 pg Normal 27.0-32.0 [facility] Comment on above: Performed By: #### M 100.2200 #### [facility] [address] [place] [address] [place], [address] MCHC (RBC) [Mass/Vol] 33.8 g/dL Normal 32-36 [facility] Comment on above: Performed By: #### M 100.2200 #### [facility] [place], [address] MCV (RBC) [Entitic vol] 91.6 fL Normal 81-99 [facility] Comment on above: Performed By: #### M 100.2200 #### [facility] [address] [facility] [place], [address] Monocytes/100 WBC (Bld) 14.8 % High 0-10 [facility] Comment on above: Performed By: #### M 100.2200 #### [facility] [place], [address] Neutrophils/100 WBC (Bld) 58.1 % Normal 47-70 [facility] Comment on above: Performed By: #### M 100.2200 #### [facility] [address] [place], [address] Nucleated RBC (Bld) [#/Vol] 0 10*3/uL Normal 0-5 [facility] Comment on above: Performed By: #### M 100.2200 #### [facility] [address] [place], [address] Platelet mean volume (Bld) [Entitic vol] 9.9 fL Normal 6.2-12.0 [facility] Comment on above: Performed By: #### M 100.2200 #### [facility] [address] [place], [address] Platelets (Bld) [#/Vol] 369 10*3/uL Normal 150-450 [facility] Comment on above: Performed By: #### M 100.2199 #### [facility] [address] [place], [address] RBC (Bld) [#/Vol] 4.52 10*6/uL Normal 4.2-5.4 [facility] Comment on above: Performed By: #### M 100.2199 #### [facility] [address] [place], [address] RDW SD 40.1 fl Normal 35.1-43.9 [facility] Comment on above: Performed By: #### M 100.2199 #### [facility] [address] [place], [address] WBC (Bld) [#/Vol] 5.4 10*3/uL Normal 4.4-11.[address] [facility] Comment on above: Performed By: #### M 100.220 #### [facility] [address] [place], [address] Eosinophil percentageOrdered By: Philippe Gonzalez on 09-07-2024 Eosinophils/100 WBC (Bld) 1.5 % 0-5 [facility] Erythrocyte distribution wid th ratioOrdered By: Philippe Gonzalez on 09-07-2024 Erythrocyte distribution width (RBC) [Ratio] 12.0 % 11.6-14.6 [facility] Erythrocyte distribution wid th standard deviationOrdered By: Philippe Gonzalez on 09-07-2024 Erythrocyte distribution width (RBC) [Ratio] 40.1 fl 35.1-43.9 [facility] Hematocrit Auto (Bld) [Volum e fraction]Ordered By: Philippe Gonzalez on 09-07-2024 Hematocrit (Bld) [Volume fraction] 41.4 % 37-47 [facility] Hemoglobin measurementOrdere d By: Philippe Gonzalez on 09-07-2024 Hemoglobin (Bld) [Mass/Vol] 14.0 g/dL 12.0-15.0 [facility] Immature granulocytes/100 WB C Auto (Bld)Ordered By: Philippe Gonzalez on 09-07-2024 Immature granulocytes/100 WBC (Bld) 0.400 % 0.0-0.9 [facility] Comment on above: IG% - Immature Granu locytes (promyelocytes, myelocytes and metamyelocytes) > 1% indicates that a LEFT SHIFT is Present. MCV (mean corpuscular volume ) determinationOrdered By: Philippe Gonzalez on 09-07-2024 MCV (RBC) [Entitic vol] 91.6 fL 81-99 [facility] Mean corpuscular hemoglobin (MCH) determinationOrdered By: Philippe Gonzalez on 09-07-2024 MCH (RBC) [Entitic mass] 31.0 pg 27.0-32.0 [facility] Mean corpuscular hemoglobin concentration (MCHC) determinationOrdered By: Philippe Gonzalez on 09-07-2024 MCHC (RBC) [Mass/Vol] 33.8 g/dL 32-36 [facility] Mean platelet volume determi nationOrdered By: Philippe Gonzalez on 09-07-2024 Platelet mean volume (Bld) [Entitic vol] 9.9 fL 6.2-12.0 [facility] Monocyte percentageOrdered B y: Philippe Gonzalez on 09-07-2024 Monocytes/100 WBC (Bld) 14.8 % High 0-10 [facility] Neutrophil percentageOrdered By: Philippe Gonzalez on 09-07-2024 Neutrophils/100 WBC (Bld) 58.1 % 47-70 [facility] Nucleated red blood cell per centageOrdered By: Philippe Gonzalez on 09-07-2024 Nucleated RBC/100 WBC (Bld) [Ratio] 0 % 0-5 [facility] Platelet countOrdered By: Sherri Gonzalez on 09-07-2024 Platelets (Bld) [#/Vol] 369 10*3/uL 150-450 [facility] RBC Auto (Bld) [#/Vol]Ordere d By: Philippe Gonzalez on 09-07-2024 RBC (Bld) [#/Vol] 4.52 10*6/uL 4.2-5.4 [facility] Serum or plasma IgA measurem ent (mass/volume)Ordered By: Philippe Gonzalez on 09-07-2024 IgA [Mass/Vol] 186 mg/dL 87-352 [facility] Serum or plasma IgG measurem ent (mass/volume)Ordered By: Philippe Gonzalez on 09-07-2024 IgG [Mass/Vol] 1204 mg/dL [phone] [facility] White blood cell (WBC) count Ordered By: Philippe Gonzalez on 09-07-2024 WBC (Bld) [#/Vol] 5.4 10*3/uL 4.4-11.[address] [facility] Breast imaging reportOrdered By: Christine Fernandes on 09-04-2024 Study report [facility] Imaging Services [address] [place], [place] [address] SCRN MAMM (CAD)W/DARVIN BILAT MR#: [id number] Acct: [id number] Name: PRAFUL KAHN Rep #: [id number] : 1975 F 49 From: Sharan Lin MD PCP: COLLETTE PARKER MD Status: REG CLI Study:SCRN MAMM (CAD)W/DARVIN BILAT Date of Exa m: 09/04/24 Exam# [id number] Ordering Dr: Radha Caicedo [employer] EXAM: SCRN MAMM (CAD)W/DARVIN BILAT DATE: 09/04/2024 CLINICAL HISTORY: F, Age 49 y/o , SCREENING FOR BREAST CANCER BREAST CANCER RISK ASSESSMENT: Na TECHNIQUE: Bilateral screening digital breast tomosynthesis with 2D and 3D images. Computeraided detection. COMPARISON: Prior exam(s) were compared FINDINGS: TISSUE DENSITY: The breast tissue is heterogenously dense, which may obscure small masses. Bilateral Breast Mammographic Findings: No suspicious masses, calcifications or other abnormalities are identified. BI/SCRN MAMM (CAD)W/DARVIN BILAT IMPRESSION: OVERALL FINAL ASSESSMENT: BIRADS 1 NEGATIVE RECOMMENDATION: Routine annual follow-up in 1 Year A letter with findings and recommendations will be mailed to the patient. Reading Location: [id number] CC: TERRY Caicedo; COLLETTE PARKER MD ~ Pharmacist Manager: Signed [facility] SCRN MAMM (CAD)W/DARVIN BILATo n 09-04-2024 SCRN MAMM (CAD)W/DARVIN BILAT [facility] Imaging Services [address] [place] [address] SCRN MAMM (CAD)W/DARVIN BILAT MR#: [id number] Acct: [id number] Name: PRAFUL KAHN Rep #: [id number] : 1975 F 49 From: Christine Jefferson i, MD PCP: COLLETTE PARKER MD Status: [facility] CL Study: SCRN MAMM (CAD)W/DARVIN BILAT Date of Exam: 12/21 Exam# [id number] Ordering Dr: Radha Caicedo [employer] EXAM: SCRN MAMM (CAD)W/DARVIN BILAT DATE: 09/04/2024 CLINICAL HISTORY: F, Age 49 y/o , SCREENING FOR BREAST CANCER BREAST CANCER RISK ASSESSMENT: Na TECHNIQUE: Bilateral screening digital breast tomosynthesis with 2D and 3D images. Computer aided detection. COMPARISON: Prior exam(s) were compared FINDINGS: TISSUE DENSITY: The breast tissue is heterogenously dense, which may obscure small masses. Bilateral Breast Mammographic Findings: No suspicious masses, calcifications or other abnormalities are identified. BI/SCRN MAMM (CAD)W/DARVIN BILAT IMPRESSION: OVERALL FINAL ASSESSMENT: BIRADS 1 NEGATIVE RECOMMENDATION: Routine annual follow-up in 1 Year A letter with findings and recommendations will be mailed to the patient. Reading Location: [facility] CC: TERRY Caicedo; COLLETTE PARKER MD Pharmacist Manager: Signed Normal [facility] Urine Cultureon 07-17-2024 URC Enterococcus faecali s [place] Count >100,000 Enterococcus faecalis: REACTION Ampicillin Islt JESSICA <=2 Ciprofloxacin Islt JESSICA <=0.5 S Gentamicin Synergy Susc Islt SYN-S S levoFLOXacin Islt JESSICA 1 S Linezolid Islt JESSICA 2 S Nitrofurantoin Islt JESSICA <=16 S Streptomycin High Pot Susc Islt SYN-S S Tetracycline Islt JESSICA <=1 S Vancomycin Islt JESSICA <=0.5 S Normal [facility] Comment on above: Performed By: #### M 100.2200 #### [facility] [address] [place], [address] Urine cultureon 07-15-2024 Bacteria identified Cx Nom (U) Enterococcus faecalis Abnormal [facility] Rubeola IgG Abon 07-06-2024 RUBEOLA Ab, IgG > 300.0 Normal Immune >16.4 [facility] Comment on above: Result Comment: Nega tive <13.5 Equivocal 13.5 - 16.4 Positive >16.4 Presence of antibodies to Rubeola is presumptive evidence of immunity except when acute infection is suspected. Performed at: - [facility] [address] [place] [id number] Pharmacogeneticist: Ej Landers PhD, Phone: [phone] Performed By: #### M 100.2200 #### [facility] [address] [place], [address] MeV IgG IA Qn (S)on 07-06-19 Rubeola (Measles) IgG Antibody > 300.0 AU/mL Immune >16.4 [facility] Comment on above: Negative <13.5 Equiv ocal 13.5 - 16.4 Positive >16.4Presence of antibodies to Rubeola is presumptive evidenceof immunity except when acute infection is suspected.Performed at: [address] [id number] Director: Ej Landers PhD, Phone: [phone] Serum measles virus IgG anti body assay by immunoassay (units/volume)on 07-05-2024 MeV IgG IA Qn (S) > 300.0 AU/mL Immune >16.4 [facility] Comment on above: Negative <13.5 Equiv ocal 13.5 - 16.4 Positive >16.4Presence of antibodies to Rubeola is presumptive evidenceof immunity except when acute infection is suspected.Performed at: [address] [id number] Director: Ej Landers PhD, Phone: [phone] Anti-dsDNA Abon 06-27-2024 ANTI-DNA (DS)AB 2 IU/mL Normal 0-9 [facility] Comment on above: Result Comment: Nega tive <5 Equivocal 5 - 9 Positive >9 Performed at: [address] [id number] Pharmacogeneticist: Ej Landers PhD, Phone: [phone] Performed By: #### M 1002200 #### [facility] [address] [place], [place], [address] Complement C3on 06-27-2024 COMP C3 118 mg/dL Normal 82-167 [facility] Comment on above: Result Comment: Perf ormed at: [address] [id number] Pharmacogeneticist: Ej Landers PhD, Phone: [phone] Performed By: #### M 100.2200 #### [facility] [address] [place], [place], [address] Complement C4on 06-27-2024 COMPLEMENT, C4 20 mg/dL Normal 12-38 [facility] Comment on above: Performed By: #### M 100.2200 #### [facility] [address] [place], [place], [address] AST(SGOT)on 06-24-2024 AST [Catalytic activity/Vol] 20 U/L Normal <=31 [facility] Comment on above: Performed By: #### M 100.2200 #### [facility] [address] [place], [place], [address] Absolute lymphocyte countOrd ered By: COLLETTE PARKER on 06-24-2024 Lymphocytes Auto (Unsp spec) [#/Vol] 1.33 10*3/uL 0.83-4.51 [facility] Absolute neutrophil countOrd ered By: COLLETTE PARKER on 06-24-2024 Neutrophils (Bld) [#/Vol] 4.6 10*3/uL 2.0-7.7 [facility] Alanine Aminotransferas (SGP T)on 06-24-2024 ALT [Catalytic activity/Vol] 16 U/L Normal <=34 [facility] Comment on above: Performed By: #### M 100.2200 #### [facility] [address] [place], [place], [address] Automated lymphocyte count a s percentage of total leukocytesOrdered By: COLLETTE PARKER on 06-24-2024 Lymphocytes/100 WBC Auto (Unsp spec) 19.1 % 19-41 [facility] BUNon 06-24-2024 Urea nitrogen [Mass/Vol] 11 mg/dL Normal 4-19 [facility] Comment on above: Performed By: #### L 3100.5700, L100.0100, L501.4100, L3100.5800, L3100.5500, L501.1000, L400.0001, L101.9900, L501.1105, L501.6710, L501.4405 #### [facility] [address] [place], [place], [address] Bacteria LM.HPF (Urine sed) [#/Area]Ordered By: COLLETTE PARKER on 06-24-2024 Urine Bacteria RARE /hpf None Seen [facility] Basophil percentageOrdered B y: COLLETTE PARKER on 06-24-2024 Basophils/100 WBC (Bld) 1.0 % 0-1 [facility] Bilirubin Test strip Ql (U)O rdered By: COLLTETE PARKER on 06-24-2024 Bilirubin Ql (U) Negative Negative [facility] CBC W/Diff, Automatedon 05-28 Absolute Lymph 1.33 X10 3/uL Normal 0.83-4.51 [facility] Comment on above: Performed By: #### L 3100.5700, L100.0100, L501.4100, L3100.5800, L3100.5500, L501.1000, L400.0001, L101.9900, L501.1105, L501.6710, L501.4405 #### [facility] [address] [place], [place], [id number] (143) Absolute Neut 4.6 X10 3/uL Normal 2.0-7.7 [facility] Comment on above: Performed By: #### L 3100.5700, L100.0100, L501.4100, L3100.5800, L3100.5500, L501.1000, L400.0001, L101.9900, L501.1105, L501.6710, L501.4405 #### [facility] [address] [place], [place], [address] (784 Basophils/100 WBC (Bld) 1.0 % Normal 0-1 [facility] Comment on above: Performed By: #### L 3100.5700, L100.0100, L501.4100, L3100.5800, L3100.5500, L501.1000, L400.0001, L101.9900, L501.1105, L501.6710, L501.4405 #### [facility] [address] [place], [address] Eosinophils/100 WBC (Bld) 1.4 % Normal 0-5 [facility] Comment on above: Performed By: #### L 3100.5700, L100.0100, L501.4100, L3100.5800, L3100.5500, L501.1000, L400.0001, L101.9900, L501.1105, L501.6710, L501.4405 #### [facility] [address] [place], [place], [address] Erythrocyte distribution width (RBC) [Ratio] 11.9 % Normal 11.6-14.6 [facility] Comment on above: Performed By: #### L 3100.5700, L100.0100, L501.4100, L3100.5800, L3100.5500, L501.1000, L400.0001, L101.9900, L501.1105, L501.6710, L501.4405 #### [facility] [address] [place], [address] Hematocrit (Bld) [Volume fraction] 39.4 % Normal 37-47 [facility] Comment on above: Performed By: #### L 3100.5700, L100.0100, L501.4100, L3100.5800, L3100.5500, L501.1000, L400.0001, L101.9900, L501.1105, L501.6710, L501.4405 #### [facility] [address] [place], [place], [address] Hemoglobin (Bld) [Mass/Vol] 13.4 g/dL Normal 12.0-15.0 [facility] Comment on above: Performed By: #### L 3100.5700, L100.0100, L501.4100, L3100.5800, L3100.5500, L501.1000, L400.0001, L101.9900, L501.1105, L501.6710, L501.4405 #### [facility] [address] [place], [address] IG% 0.700 Normal 0.0-0.9 [facility] Comment on above: Result Comment: IG% - Immature Granulocytes (promyelocytes, myelocytes and metamyelocytes) > 1% indicates that a LEFT SHIFT is Present. Performed By: #### L 3100.5700, L100.0100, L501.4100, L3100.5800, L3100.5500, L501.1000, L400.0001, L101.9900, L501.1105, L501.6710, L501.4405 #### [facility] [address] [place], [address] Lymphocytes/100 WBC (Bld) 19.1 % Normal 19-41 [facility] Comment on above: Performed By: #### L 3100.5700, L100.0100, L501.4100, L3100.5800, L3100.5500, L501.1000, L400.0001, L101.9900, L501.1105, L501.6710, L501.4405 #### [facility] [address] [place], [address] MCH (RBC) [Entitic mass] 31.0 pg Normal 27.0-32.0 [facility] Comment on above: Performed By: #### L 3100.5700, L100.0100, L501.4100, L3100.5800, L3100.5500, L501.1000, L400.0001, L101.9900, L501.1105, L501.6710, L501.4405 #### [facility] [address] [place], [address] MCHC (RBC) [Mass/Vol] 34.0 g/dL Normal 32-36 [facility] Comment on above: Performed By: #### L 3100.5700, L100.0100, L501.4100, L3100.5800, L3100.5500, L501.1000, L400.0001, L101.9900, L501.1105, L501.6710, L501.4405 #### [facility] [address] [place], [address] MCV (RBC) [Entitic vol] 91.2 fL Normal 81-99 [facility] Comment on above: Performed By: #### L 3100.5700, L100.0100, L501.4100, L3100.5800, L3100.5500, L501.1000, L400.0001, L101.9900, L501.1105, L501.6710, L501.4405 #### [facility] [address] [place], [address] Monocytes/100 WBC (Bld) 12.6 % High 0-10 [facility] Comment on above: Performed By: #### L 3100.5700, L100.0100, L501.4100, L3100.5800, L3100.5500, L501.1000, L400.0001, L101.9900, L501.1105, L501.6710, L501.4405 #### [facility] [address] [place], [address] Neutrophils/100 WBC (Bld) 65.2 % Normal 47-70 [facility] Comment on above: Performed By: #### L 3100.5700, L100.0100, L501.4100, L3100.5800, L3100.5500, L501.1000, L400.0001, L101.9900, L501.1105, L501.6710, L501.4405 #### [facility] [address] [place], [address] Nucleated RBC (Bld) [#/Vol] 0 10*3/uL Normal 0-5 [facility] Comment on above: Performed By: #### L 3100.5700, L100.0100, L501.4100, L3100.5800, L3100.5500, L501.1000, L400.0001, L101.9900, L501.1105, L501.6710, L501.4405 #### [facility] [address] [place], [address] (199) Platelet mean volume (Bld) [Entitic vol] 10.1 fL Normal 6.2-12.0 [facility] Comment on above: Performed By: #### L 3100.5700, L100.0100, L501.4100, L3100.5800, L3100.5500, L501.1000, L400.0001, L101.9900, L501.1105, L501.6710, L501.4405 #### [facility] [address] [place], [address] (899) Platelets (Bld) [#/Vol] 347 10*3/uL Normal 150-450 [facility] Comment on above: Performed By: #### L 3100.5700, L100.0100, L501.4100, L3100.5800, L3100.5500, L501.1000, L400.0001, L101.9900, L501.1105, L501.6710, L501.4405 #### [facility] [address] [place], [address] (169) RBC (Bld) [#/Vol] 4.32 10*6/uL Normal 4.2-5.4 [facility] Comment on above: Performed By: #### L 3100.5700, L100.0100, L501.4100, L3100.5800, L3100.5500, L501.1000, L400.0001, L101.9900, L501.1105, L501.6710, L501.4405 #### [facility] [address] [place], [address] ( RDW SD 39.8 fl Normal 35.1-43.9 [facility] Comment on above: Performed By: #### L 3100.5700, L100.0100, L501.4100, L3100.5800, L3100.5500, L501.1000, L400.0001, L101.9900, L501.1105, L501.6710, L501.4405 #### [facility] [address] [facility] [address] [place], [place], [address] WBC (Bld) [#/Vol] 7.0 10*3/uL Normal 4.4-11.[address] [facility] Comment on above: Performed By: #### L 3100.5700, L100.0100, L501.4100, L3100.5800, L3100.5500, L501.1000, L400.0001, L101.9900, L501.1105, L501.6710, L501.4405 #### [facility] [address] [facility] [address] [place], [place], [address] (806) CRPon 06-24-2024 C-REACTIVE PROT < 3.00 Normal 0.0-3.0 [facility] Comment on above: Performed By: #### L 3100.5700, L100.0100, L501.4100, L3100.5800, L3100.5500, L501.1000, L400.0001, L101.9900, L501.1105, L501.6710, L501.4405 #### [facility] [address] [facility] [place], [place], [id number] (664) CRP [Mass/Vol]Ordered By: RA KINA PARKER on 06-24-2024 C-Reactive Protein Extended Range < 3.00 mg/L 0.0-3.0 [facility] Complement C3 assayOrdered B y: COLLETTE PARKER on 06-24-2024 Complement C3 118 mg/dL 82-167 [facility] Comment on above: Performed at: [facility] [address] [id number] Director: Ej Landers PhD, Phone: [phone] Complement C4 [Mass/Vol]Orde red By: COLLETTE PARKER on 06-24-2024 Complement C4 20 mg/dL 12-38 [facility] DNA double strand Ab Qn (S)O rdered By: COLLETTE PARKER on 06-24-2024 Anti-Double Strand DNA Antibody 2 IU/mL 0-9 [facility] Comment on above: Negative <5 Equivoca l 5 - 9 Positive >9Performed at: - [facility] [address] [id number] Director: Ej Landers PhD, Phone: [phone] Eosinophil percentageOrdered By: COLLETTE PARKER on 06-24-2024 Eosinophils/100 WBC (Bld) 1.4 % 0-5 [facility] Epithelial cells.squamous LM Ql (Urine sed)Ordered By: COLLETTE PARKER on 06-24-2024 Epithelial cells.squamous LM.HPF (Urine sed) [#/Area] 0 /[HPF] 5-10 [facility] Erythrocyte Sed Rateon 06-24 SED RATE < 1 Normal 0-30 [facility] Comment on above: Performed By: #### L 3100.5700, L100.0100, L501.4100, L3100.5800, L3100.5500, L501.1000, L400.0001, L101.9900, L501.1105, L501.6710, L501.4405 #### [facility] [address] [place], [address] Erythrocyte distribution wid th ratioOrdered By: COLLETTE PARKER on 06-24-2024 Erythrocyte distribution width (RBC) [Ratio] 11.9 % 11.6-14.6 [facility] Erythrocyte distribution wid th standard deviationOrdered By: COLLETTE PARKER on 06-24-2024 Erythrocyte distribution width (RBC) [Entitic vol] 39.8 fL 35.1-43.9 [facility] Erythrocyte distribution width (RBC) [Ratio] 39.8 fl 35.1-43.9 [facility] Erythrocyte sedimentation ra teOrdered By: COLLETTE PARKER on 06-24-2024 ESR (Bld) [Velocity] mm/h 0-30 [facility] GFR/1.73 sq M.predicted tcio g non-blacks MDRD (S/P/Bld) [Vol rate/Area]Ordered By: COLLETTE PARKER on 06-24-2024 Estimated GFR (MDRD) Non-Af Amer 83 >60 [facility] Comment on above: mL/min/1.73m2 CKD-EP I Creatinine Equation (2020) Glomerular filtration rate ( GFR) estimation/1.73 sq m using serum, plasma, or whole bOrdered By: COLLETTE PARKER on 06-24-2024 GFR/1.73 sq M.predicted among non-blacks MDRD (S/P/Bld) [Vol rate/Area] 83 mL/min/{1.73_m2} >60 [facility] Comment on above: mL/min/1.73m2 CKD-EP I Creatinine Equation (2020) Glucose Ql (U)Ordered By: RA KINA PARKER on 06-24-2024 Urine Glucose (UA) Normal mg/dl Normal [facility] Hematocrit Auto (Bld) [Volum e fraction]Ordered By: COLLETTE PARKER on 06-24-2024 Hematocrit (Bld) [Volume fraction] 39.4 % 37-47 [facility] Hemoglobin measurementOrdere d By: COLLETTE PARKER on 06-24-2024 Hemoglobin (Bld) [Mass/Vol] 13.4 g/dL 12.0-15.0 [facility] Immature granulocytes/100 WB C Auto (Bld)Ordered By: COLLETTE PARKER on 06-24-2024 Immature granulocytes/100 WBC (Bld) 0.700 % 0.0-0.9 [facility] Comment on above: IG% - Immature Granu locytes (promyelocytes, myelocytes and metamyelocytes) > 1% indicates that a LEFT SHIFT is Present. Ketones Test strip Ql (U)Ord ered By: COLLETTE PARKER on 06-24-2024 Ketones Ql (U) Negative Negative [facility] - Chemistry and C hemistry - challengeOrdered By: COLLETTE PARKER on 06-24-2024 AST [Catalytic activity/Vol] 20 U/L <32 [facility] Lymphocytes Auto (Unsp spec) [#/Vol]Ordered By: COLLETTE PARKER on 06-24-2024 Lymphocytes (Bld) [#/Vol] 1.33 10*3/uL 0.83-4.51 [facility] Lymphocytes/100 WBC Auto (Un sp spec)Ordered By: COLLETTE PARKER on 06-24-2024 Lymphocytes/100 WBC (Bld) 19.1 % 19-41 [facility] MCV (mean corpuscular volume ) determinationOrdered By: COLLETTE PARKER on 06-24-2024 MCV (RBC) [Entitic vol] 91.2 fL 81-99 [facility] Mean corpuscular hemoglobin (MCH) determinationOrdered By: COLLETTE PARKER on 06-24-2024 MCH (RBC) [Entitic mass] 31.0 pg 27.0-32.0 [facility] Mean corpuscular hemoglobin concentration (MCHC) determinationOrdered By: COLLETTE PARKER on 06-24-2024 MCHC (RBC) [Mass/Vol] 34.0 g/dL 32-36 [facility] Mean platelet volume determi nationOrdered By: COLLETTE PARKER on 06-24-2024 Platelet mean volume (Bld) [Entitic vol] 10.1 fL 6.2-12.0 [facility] Microscopic analysis of urin e for red blood cells (RBC)Ordered By: COLLETTE PARKER on 06-24-2024 Microscopic analysis of urine for red blood cells (RBC) 0 SEEN /hpf 0-5 [facility] Urine RBC 0 SEEN /hpf 0-5 [facility] Monocyte percentageOrdered B y: COLLETTE PARKER on 06-24-2024 Monocytes/100 WBC (Bld) 12.6 % High 0-10 [facility] Mucus LM Ql (Urine sed)Order ed By: COLLETTE PARKER on 06-24-2024 Mucus Ql (Urine sed) 0 SEEN /hpf [facility] Neutrophil percentageOrdered By: COLLETTE PARKER on 06-24-2024 Neutrophils/100 WBC (Bld) 65.2 % 47-70 [facility] Nitrite Test strip Ql (U)Ord ered By: COLLETTE PARKER on 06-24-2024 Nitrite Ql (U) Negative Negative [facility] Nucleated red blood cell per centageOrdered By: COLLETTE PARKER on 06-24-2024 Nucleated RBC/100 WBC (Bld) [Ratio] 0 % 0-5 [facility] Platelet countOrdered By: RA KINA PARKER on 06-24-2024 Platelets (Bld) [#/Vol] 347 10*3/uL 150-450 [facility] Protein Test strip Ql (U)Ord ered By: COLLETTE PARKER on 06-24-2024 Protein Ql (U) 15 mg/dl High Negative [facility] RBC Auto (Bld) [#/Vol]Ordere d By: COLLETTE PARKER on 06-24-2024 RBC (Bld) [#/Vol] 4.32 10*6/uL 4.2-5.4 [facility] Serum Creatinine AND GFRon 0 06-24-2024 Creatinine [Mass/Vol] 0.85 mg/dL Normal 0.70-1.20 [facility] Comment on above: Performed By: #### M 100.2200 #### [facility] [address] [place], [address] GFR/1.73 sq M.predicted among non-blacks MDRD (S/P/Bld) [Vol rate/Area] 83 mL/min/{1.73_m2} Normal >60 [facility] Comment on above: Result Comment: mL/m in/1.73m2 CKD-EPI Creatinine Equation (2020) Performed By: #### M 100.2200 #### [facility] [address] [place], [address] Serum DNA double strand anti body assay (units/volume)Ordered By: COLLETTE PARKER on 06-24-2024 DNA double strand Ab Qn (S) 2 [IU]/mL 0-9 [facility] Comment on above: Negative <5 Equivoca l 5 - 9 Positive >9Performed at: - [facility] [address] [id number] Director: Ej Landers PhD, Phone: [phone] Serum creatinine measurement (mass/volume)Ordered By: COLLETTE PARKER on 06-24-2024 Creatinine [Mass/Vol] 0.85 mg/dL 0.70-1.20 [facility] Serum or plasma C reactive p rotein measurement (mass/volume)Ordered By: COLLETTE PARKER on 06-24-2024 CRP [Mass/Vol] mg/L 0.0-3.0 [facility] Serum or plasma alanine hernandez otransferase (ALT) measurementOrdered By: COLLETTE PARKER on 06-24-2024 ALT [Catalytic activity/Vol] 16 U/L <35 [facility] Serum or plasma complement C 4 measurement (mass/volume)Ordered By: COLLETTE PARKER on 06-24-2024 Complement C4 [Mass/Vol] 20 mg/dL 12-38 [facility] Serum or plasma urea nitroge n measurement (mass/volume)Ordered By: COLLETTE PARKER on 06-24-2024 Urea nitrogen [Mass/Vol] 11 mg/dL 4-19 [facility] Squamous epithelial cells de tection in urine sediment by light microscopyOrdered By: COLLETTE PARKER on 06-24-2024 Epithelial cells.squamous LM Ql (Urine sed) 0-5 SEEN /hpf 5-10 [facility] Urinalysis, Completeon 06-24 RBC 0 SEEN Normal 0-5 [facility] Comment on above: Order Comment: CLEAN CATCH Performed By: #### M 100.2200 #### [facility] [address] [facility] [place], [address] Urine blood detectionOrdered By: COLLETTE PARKER on 06-24-2024 Urine Occult Blood Negative Negative [facility] Urine clarityOrdered By: KALINA PARKER on 06-24-2024 Clarity (U) Clear Clear [facility] Urine color determinationOrd ered By: COLLETTE PARKER on 06-24-2024 Color (U) Yellow Yellow [facility] Urine glucose detectionOrder ed By: COLLETTE PARKER on 06-24-2024 Glucose Ql (U) Normal mg/dl Normal [facility] Urine leukocyte esterase det ection by dipstickOrdered By: COLLETTE PARKER on 06-24-2024 Leukocyte esterase Test strip Ql (U) 25 /ul High Negative [facility] Urine pHOrdered By: COLLETTE ALSTON on 06-24-2024 pH (U) 5.0 [pH] 5.0 - 8.0 [facility] Urine sediment bacteria coun t by microscopy (number/high power field)Ordered By: COLLETTE PARKER on 06-24-2024 Bacteria LM.HPF (Urine sed) [#/Area] RARE /hpf None Seen [facility] Urine specific gravity measu rementOrdered By: COLLETTE PARKER on 06-24-2024 Specific gravity (U) [Rel density] 1.025 1.002-1.03 0 [facility] Urine urobilinogen measureme ntOrdered By: COLLETTE PARKER on 06-24-2024 Urobilinogen Ql (U) Normal mg/dl Normal [facility] Urobilinogen Ql (U)Ordered B y: COLLETTE PARKER on 06-24-2024 Urine Urobilinogen Normal mg/dl Normal [facility] White blood cell (WBC) count Ordered By: COLLETTE PARKER on 06-24-2024 WBC (Bld) [#/Vol] 7.0 10*3/uL 4.4-11.[address] [facility] White blood cell countOrdere d By: COLLETTE PARKER on 06-24-2024 Urine WBC 0-5 SEEN /hpf 0-5 [facility] White blood cell count 0-5 SEEN /hpf 0-5 [facility] Direct serum free thyroxine (FT4) measurementOrdered By: Radha Caicedo on 05-17-2024 Free T4 [Mass/Vol] 0.78 ng/dL 0.76-1.[address] [facility] Estradiolon 05-17-2024 ESTRADIOL 83.9 pg/mL Normal [facility] Comment on above: Result Comment: NORM AL REFERENCE RANGES FEMALE FOLLICULAR 21.4 - 164.8 pg/mL MID-CYCLE PEAK 49.9 - 367.2 pg/mL LUTEAL 40.2 - 259.0 pg/mL POST-MENOPAUSAL ON MHT <11.0 - 462.1 pg/mL NOT ON MHT <11.0 - 58.3 pg/mL MALE <11.0 - 52.5 pg/mL NOTE: [employer] HAS CONFIRMED THE DRUG FULVETRANT (FASLODEX) MAY CAUSE FALSELY ELEVATED ESTRADIOL RESULTS WHEN USING THIS TEST METHOD. IF PATIENT IS TAKING FULVESTRANT AN ALTERNATIVE METHOD SHOULD BE USED TO DETERMINE ESTRADIOL CONCENTRATION. Performed By: #### L 3100.5055, L3300.1750, L501.9520, L501.38659, L506.0400 ####[facility] [id number] [place], [place], [id number] Estradiol measurementOrdered By: Radha Caicedo on 05-17-2024 Estradiol (E2) Level 83.9 pg/mL [facility] Comment on above: NORMAL REFERENCE RAN GES FEMALE FOLLICULAR 21.4 - 164.8 pg/mL MID-CYCLE PEAK 49.9 - 367.2 pg/mL LUTEAL 40.2 - 259.0 pg/mL POST-MENOPAUSAL ON MHT <11.0 - 462.1 pg/mL NOT ON MHT <11.0 - 58.3 pg/mL MALE <11.0 - 52.5 pg/mL NOTE:[employer] HAS CONFIRMED THE DRUG FULVETRANT (FASLODEX) MAY CAUSE FALSELY ELEVATED ESTRADIOL RESULTS WHEN USING THIS TEST METHOD. IF PATIENT IS TAKING FULVESTRANT AN ALTERNATIVE METHOD SHOULD BE USED TO DETERMINE ESTRADIOL CONCENTRATION. FSH and LHon 05-17-2024 FSH 29.8 mIU/mL Normal [facility] Comment on above: Result Comment: NORMAL REFERENCE RANGES FEMALE FOLLICULAR 2.3 - 12.6 mIU/mL MID-CYCLE PEAK 5.2 - 17.5 mIU/mL LUTEAL 1.7 - 12.9 mIU/mL POST-MENOPAUSAL ON MHT 5.9 - 72.8 mIU/mL NOT ON MHT 12.7 - 132.2 mlU/mL MALE 0.7 - 10.8 mIU/mL Performed By: #### L 3100.5055, L3300.1750, L501.9520, L501.63137, L506.0400 ####[facility] [address] [place], [place], [id number] LH 13.2 mIU/mL Normal [facility] Comment on above: Result Comment: NORMAL REFERENCE RANGES FEMALE FOLLICULAR 1.9 - 26.2 mIU/mL MID-CYCLE PEAK 22.8 - 76.1 mIU/mL LUTEAL 0.6 - 16.6 mIU/mL POST-MENOPAUSAL ON MHT 1.1 - 52.4 mIU/mL NOT ON MHT 8.6 - 61.8 mIU/mL MALE 1.2 - 10.6 mIU/mL Performed By: #### L 3100.5055, L3300.1750, L501.9520, L501.64230, L506.0400 ####[facility] [address] [place], [place], [id number] Follicle stimulating hormone (FSH) levelOrdered By: Radha Caicedo on 05-17-2024 Follicle Stimulating Hormone 29.8 mIU/mL [facility] Comment on above: NORMAL REFERENCE RAN GES FEMALE FOLLICULAR 2.3 - 12.6 mIU/mL MID-CYCLE PEAK 5.2 - 17.5 mIU/mL LUTEAL 1.7 - 12.9 mIU/mL POST-MENOPAUSAL ON MHT 5.9 - 72.8 mIU/mL NOT ON MHT 12.7 - 132.2 mlU/mL MALE 0.7 - 10.8 mIU/mL Free T3on 05-17-2024 Free T3 [Mass/Vol] 2.4 pg/mL Normal 2.18-3.[address] [facility] Comment on above: Performed By: #### L 3100.5055, L3300.1750, L501.9520, L501.83381, L506.0400 ####[facility] [address] [place], [place], [address] Free F6Hpormuc By: Radha sanchez on 05-17-2024 Free T3 [Mass/Vol] 2.4 pg/mL 2.18-3.[address] [facility] Free Triiodothyronine (T3) pg/dL 2.4 pg/mL 2.18-3.98 [facility] Luteinizing hormone measurem entOrdered By: Radha Caicedo on 05-17-2024 Luteinizing Hormone 13.2 mIU/mL [facility] Comment on above: NORMAL REFERENCE RAN GES FEMALE FOLLICULAR 1.9 - 26.2 mIU/mL MID-CYCLE PEAK 22.8 - 76.1 mIU/mL LUTEAL 0.6 - 16.6 mIU/mL POST-MENOPAUSAL ON MHT 1.1 - 52.4 mIU/mL NOT ON MHT 8.6 - 61.8 mIU/mL MALE 1.2 - 10.6 mIU/mL Serum or plasma thyroid stim ulating hormone (TSH) measurement (units/volume)Ordered By: Radha Caicedo on 05-17-2024 TSH Qn 1.580 uIU/mL 0.358-3.74 0 [facility] T4 Free Directon 05-17-2024 T4 FREE DIRECT 0.78 ng/dL Normal 0.76-1.46 [facility] Comment on above: Performed By: #### L 3100.5055, L3300.1750, L501.9520, L501.20061, L506.0400 ####[facility] [address] [place], [place], [address] TSH QnOrdered By: Radha Sawyer on 05-17-2024 Thyroid Stimulating Hormone (TSH) 1.580 uIU/mL 0.358-3.74 0 [facility] Thyroid Stim Hormone (TSH)on 05-17-2024 TSH 1.580 uIU/mL Normal 0.358-3.74 0 [facility] Comment on above: Performed By: #### L 3100.5055, L3300.1750, L501.9520, L501.43894, L506.0400 ####[facility] [address] [place], [place], [address] Stock Controller Office Visit Reporton 05-16-2024 Stock Controller Office Visit Report [facility] [address], [address] [place] [address] OFFICE VISIT Date of Service: 05/16/24 MR#: [id number] Acct: [id number] Name: PRAFUL KAHN Rep #: [id number] : 1975 Provider: TERRY Sawyer Age/Sex: 49/F Location: [facility] Status: Signed Intake Vital Signs 09/16/23 11:11 05/16/24 15:27 Height 5 ft 3 in 5 ft 3 in Weight: 156 lb BMI 27.6 BP 133/82 H Intake Visit Reasons: ANNUAL Vp Of Marketing Required: No Is patient in pain?: No Allergies morphine Allergy (Verified 05/16/24 15:28) Hives Medications ???Medication ???Instructions ???Recorded ???Confirmed ???Type hydroxychloroquine 200 mg tablet 20 mg PO DAILY 08/16/13 05/16/24 H istory multivitamin with iron 1 ea PO DAILY 08/16/13 05/16/24 Hi story cyclosporine 0.05 % eye drops in a 1 drp ophthalmic (eye) Q12H 05/0 06/1705/16/24 History dropperette (Restasis) ocrelizumab 30 mg/mL intravenous 600 mg IV .2X PER YEAR 07/27/22 History solution (Ocrevus) ergocalciferol (vitamin D2) 1,250 1,250 mcg PO .WEEKLY 10/01/22 History mcg (50,000 unit) capsule rifaximin 550 mg tablet (Xifaxan) 550 mg PO BID #60 TABLETS 5 05/16/24 Rx Is last menstrual period known: No Patient : No : No [facility] Medical History Small intestinal bacterial overgrowth (SIBO) Wears glasses GERD (gastroesophageal reflux disease) Non-smoker Surgical History History of endometrial ablation H/O knee surgery History of appendectomy H/O nasal septoplasty Family History Uncle Cancer Liver Social History household members: spouse number of children: 1 current occupational status: employed 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 Date Name GA/Weeks Outcome Route Bth Weight [facility] Pierre [facility] ANNUAL Details: PRAFUL KAHN is a 49 year old who presents for annual exam. She reports she has not had anymore vaginal bleeding since last August 2023; she had 2 episodes of bleeding and nothing since then. EMB was deferred at that time. She otherwise has noticed weight gain as well. Last PAP: 2022; normal. hpv neg History of abnormal PAP: no Last mammogram: 2023 normal. History of abnormal mammogram: no Colon cancer screening: yes-Dr. Geiger--following. Other preventative health care screenings: Keith Mosqueda- PCP Female Reproductive History Last Menstrual Period: 08/28/23 Questions: metorrhagia: No, sexually active: Yes (vasectomy), dyspareunia: No and PCB: No ROS Const Constitutional: Reports weight gain; Denies chills, fatigue, fever(s), headache(s) or weight loss Eyes Eyes: Denies change in vision ENT ENT: Denies dizziness Cardio Card: Denies chest pain Resp Resp: Denies cough GI GI: Denies abdominal pain, constipation or nausea : Denies difficulty voiding, dysuria, hematuria, nipple discharge, pelvic pain, prolapse symptoms, urinary incontinence, vaginal discharge, vaginal dryness, vaginal odor or vaginal pruritus Skin Skin/Breast: Denies alopecia, rash, breast mass, breast pain, breast skin changes or nipple discharge Neuro Neuro: Denies dizziness Psych Psych: Denies anxiety or depression Endo Endo: Denies cold intolerance, excessive sweating or heat intolerance Exam Const General: cooperative, healthy appearing, comfortable, no acute distress, well groomed and well hydrated Nutritional Appearance: well nourished Orientation: alert, awake and oriented x3 HENMT Head: normal to inspection and normocephalic Ears: hearing grossly normal bilaterally and external ears normal Nose: external nose normal Face and sinus: normal facial exam Eyes General: appearance normal, both eyes and all related structures Neck Neck: normal visual inspection, full ROM and no lymphadenopathy Thyroid: thyroid normal Chest Chest palpation inspection: normal inspection of the chest Breast inspection: normal inspection of the breasts and normal inspection of the axillae Breast palpation: normal palpation of the breasts, normal palpati (more content not included)... Normal [facility] Gastroenterology Visit Repor ton 03-31-2024 Gastroenterology Visit Report [facility] Gastroenterology [address] [place] [address] OFFICE VISIT Date of Service: 03/31/24 MR#: [id number] Acct: [id number] Name: PRAFUL KAHN Rep #: [id number] : 1975 Provider: Adam Geiger DO Age/Sex: 49/F Location: [facility] [place] Status: Signed Intake Vital Signs 08/17/23 10:55 09/16/23 11:11 Height 5 ft 3 in 5 ft 3 in Intake Visit Reasons: 6 M FU Chief Complaint: Annual Allergies morphine Allergy (Verified 09/16/23 11:11) Hives Medications ???Medication ???Instructions ???Recorded ???Confirmed ???Type hydroxychloroquine 200 mg tablet 20 mg PO DAILY 08/16/13 03/31/24 History multivitamin with iron 1 ea PO DAILY 08/16/13 03/31/24 History cyclosporine 0.05 % eye drops in a 1 drp ophthalmic (eye) Q12H 07/29/21 03/31/24 History dropperette (Restasis) ocrelizumab 30 mg/mL intravenous 600 mg IV .2X PER YEAR 07/27/22 03/31/24 History solution (Ocrevus) ergocalciferol (vitamin D2) 1,250 1,250 mcg PO .WEEKLY 10/01/22 03/31/24 History mcg (50,000 unit) capsule rifaximin 550 mg tablet (Xifaxan) 550 mg PO BID #60 TABLETS 02/16/24 03/31/24 Rx PFSH Medical History Small intestinal bacterial overgrowth (SIBO) Wears glasses GERD (gastroesophageal reflux disease) Non-smoker Surgical History History of endometrial ablation H/O knee surgery History of appendectomy H/O nasal septoplasty Family History Uncle Cancer Liver Social History household members: spouse number of children: 1 current occupational status: 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 *BGI established 07.27.22 with early satiety ? Biochemical CBC, ESR, CMP, LFT, CRP, celiac, IBD without pertinent abnormality. ? Stool calprotectin, lactoferrin WNL ? Biochemical .09.18 coag, lupus, viper venom WNL ? Gastric emptying study 08.13.22 45.23 minutes ? EGD and colonoscopy 10.05.22 EGD irregular Zline 38cm; gastritis; duodenitis. ? Colonoscopy decreased sphincter tone; stool in rectum. OV 8.. Feels she is doing better than previously; particularly with the two rounds of antibiotic therapy. Continues with omeprazole. BM occur approximately every three days with stools ranging between loose and hard with hard stool being predominant. Xifaxan start. OV 2..24 has been using supergreen BID and MiraLAX QD; with this regimen she is having routine BM four days a week and have no BM or small hard stools the rest of the time will occasionally have loose stools and mucus in her stool. Bad breath has returned. OV 624 pt reports continued symptoms from previous visit. Pt reports ongoing constipation and stools that vary. Reports daily gas and bloating that get worse throughout the day. Pt reports that she feels better if she does not eat. Pt is no longer taking xifaxan or omeprazole, continues with Creon, supergreens, and miralax; unsure if current regimen is helpful. OV 1..25 pt reports that she is doing better since last visit. Pt states that she began having HB again two weeks ago, has taken omeprazole in the past, but was not helpful. Pt reports that she is having a bm every other day and feels that her symptoms are stable. ROS Const Constitutional: Positive for weight change (weight gain); No fatigue or fever(s) ENT ENT: No difficulty swallowing Gastro GI: Positive for bloating, heartburn and excessive flatus; No abdominal pain, belching, change in bowel habits, change in stool character, coffee ground emesis, constipation, cramping, diarrhea, difficulty swallowing, feeling full early, incontinent of stools, Vomiting blood/hematemesis, Blood in stool, loose stools, Black,tarry stools, nausea/dyspepsia, pain with swallowing, vomiting or other Musc Musculoskeletal: Positive for Arthritis and restless legs; No joint pain Skin Skin: No yellowing of the eye or itchy eyes Neuro Neurology: Positive for restless legs Psych Psychiatric: No anxiety and No depression Endo Endocrine: Positive for weight ch (more content not included)... Normal [facility] Immunoglobulins G/A/Mon 12-0 -2023 IMMUNOGLOB A QN 177 mg/dL Normal 87-352 [facility] Comment on above: Order Comment: Y Performed By: #### L 3200.1200, L100.0100 #### [facility] [address] [place], [address] IMMUNOGLOB G QN 1171 mg/dL Normal 586-1602 [facility] Comment on above: Order Comment: Y Performed By: #### L 3200.1200, L100.0100 #### [facility] [address] [place], [place], [address] IMMUNOGLOB M QN 78 mg/dL Normal 26-217 [facility] Comment on above: Order Comment: Y Result Comment: Perf ormed at: [facility] [id number] Pharmacogeneticist: Ej Landers PhD, Phone: [phone] Performed By: #### L 3200.1200, L100.0100 #### [facility] [address] [place], [place], [id number] Absolute neutrophil countOrd ered By: hPilippe Gonzalez on 02-29-2024 Neutrophils (Bld) [#/Vol] 4.0 10*3/uL 2.0-7.7 [facility] Absolute neutrophil countOrd ered By: [facility] on 02-29-2024 Neutrophils (Bld) [#/Vol] 4.0 10*3/uL 2.0-7.7 [facility] Albumin to globulin ratioOrd ered By: [facility] on 02-29-2024 Albumin/Globulin [Mass ratio] 1.2 {ratio} 0.9-2.4 [facility] Basophil percentageOrdered B y: Philippe Anaislai on 02-29-2024 Basophils/100 WBC (Bld) 1.0 % 0-1 [facility] Bilirubin directOrdered By: [email or web address] [facility] on 02-29-2024 Bilirubin.direct [Mass/Vol] 0.30 mg/dL 0.00-0.30 [facility] Bilirubin, totalOrdered By: [facility] on 02-29-2024 Bilirubin [Mass/Vol] 1.10 mg/dL High 0.20-1.00 [facility] Comment on above: For patients on eltr ombopag therapy, use of Dimension Caspian TBIL is not recommended. Blood platelets count (numbe r/volume)Ordered By: [employer] on 02-29-2024 Platelets (Bld) [#/Vol] 391 10*3/uL 150-450 [facility] Blood urea nitrogen (BUN)/cr eatinine ratioOrdered By: [employer] on 02-29-2024 Urea nitrogen/Creatinine [Mass ratio] 13.3 mg/mg 10-20 [facility] CBC W/Diff, Automatedon 12-0 Absolute Lymph 1.12 X10 3/uL Normal 0.83-4.51 [facility] Comment on above: Performed By: #### L 3200.1200, L100.0100 #### [facility] [address] [place], [address] Absolute Neut 4.0 X10 3/uL Normal 2.0-7.7 [facility] Comment on above: Performed By: #### L 3200.1200, L100.0100 #### [facility] [address] [place], [address] Basophils/100 WBC (Bld) 1.0 % Normal 0-1 [facility] Comment on above: Performed By: #### L 3200.1200, L100.0100 #### [facility] [address] [place], [address] Eosinophils/100 WBC (Bld) 1.8 % Normal 0-5 [facility] Comment on above: Performed By: #### L 3200.1200, L100.0100 #### [facility] [address] [place], [address] Erythrocyte distribution width (RBC) [Ratio] 12.1 % Normal 11.6-14.6 [facility] Comment on above: Performed By: #### L 3200.1200, L100.0100 #### [facility] [address] [place], [address] Hematocrit (Bld) [Volume fraction] 38.7 % Normal 37-47 [facility] Comment on above: Performed By: #### L 3200.1200, L100.0100 #### [facility] [address] [place], [address] Hemoglobin (Bld) [Mass/Vol] 13.1 g/dL Normal 12.0-15.0 [facility] Comment on above: Performed By: #### L 3200.1200, L100.0100 #### [facility] [address] [place], [address] IG% 0.500 Normal 0.0-0.9 [facility] Comment on above: Result Comment: IG% - Immature Granulocytes (promyelocytes, myelocytes and metamyelocytes) > 1% indicates that a LEFT SHIFT is Present. Performed By: #### L 3200.1200, L100.0100 #### [facility] [address] [place], [address] Lymphocytes/100 WBC (Bld) 18.1 % Low 19-41 [facility] Comment on above: Performed By: #### L 3200.1200, L100.0100 #### [facility] [address] [place], [address] MCH (RBC) [Entitic mass] 30.9 pg Normal 27.0-32.0 [facility] Comment on above: Performed By: #### L 3200.1200, L100.0100 #### [facility] [address] [place], [address] MCHC (RBC) [Mass/Vol] 33.9 g/dL Normal 32-36 [facility] Comment on above: Performed By: #### L 3200.1200, L100.0100 #### [facility] [address] [place], [address] MCV (RBC) [Entitic vol] 91.3 fL Normal 81-99 [facility] Comment on above: Performed By: #### L 3200.1200, L100.0100 #### [facility] [address] [place], [address] Monocytes/100 WBC (Bld) 13.4 % High 0-10 [facility] Comment on above: Performed By: #### L 3200.1200, L100.0100 #### [facility] [address] [place], [address] Neutrophils/100 WBC (Bld) 65.2 % Normal 47-70 [facility] Comment on above: Performed By: #### L 3200.1200, L100.0100 #### [facility] [address] [place], [address] Nucleated RBC (Bld) [#/Vol] 0 10*3/uL Normal 0-5 [facility] Comment on above: Performed By: #### L 3200.1200, L100.0100 #### [facility] [address] [place], [address] Platelet mean volume (Bld) [Entitic vol] 9.7 fL Normal 6.2-12.0 [facility] Comment on above: Performed By: #### L 3200.1200, L100.0100 #### [facility] [address] [place], [address] Platelets (Bld) [#/Vol] 391 10*3/uL Normal 150-450 [facility] Comment on above: Performed By: #### L 3200.1200, L100.0100 #### [facility] [address] [place], [address] RBC (Bld) [#/Vol] 4.24 10*6/uL Normal 4.2-5.4 [facility] Comment on above: Performed By: #### L 3200.1200, L100.0100 #### [facility] [address] [place], [address] RDW SD 40.6 fl Normal 35.1-43.9 [facility] Comment on above: Performed By: #### L 3200.1200, L100.0100 #### [facility] [address] [place], [address] WBC (Bld) [#/Vol] 6.2 10*3/uL Normal 4.4-11.[address] [facility] Comment on above: Performed By: #### L 3200.1200, L100.0100 #### [facility] [address] [place], [address] CBC, Employeeon 02-29-2024 Nucleated RBC (Bld) [#/Vol] 0 10*3/uL Normal 0-5 [facility] Comment on above: Performed By: #### L 100.0200, L500.2900 ####[facility] [address] [place], [address] Absolute Lymph 1.12 X10 3/uL Normal 0.83-4.51 [facility] Comment on above: Performed By: #### L 100.0200, L500.2900 ####[facility] [address] [place], [address] Absolute Neut 4.0 X10 3/uL Normal 2.0-7.7 [facility] Comment on above: Performed By: #### L 100.0200, L500.2900 ####[facility] [address] [place], [address] Basophils/100 WBC (Bld) 1.0 % Normal 0-1 [facility] Comment on above: Performed By: #### L 100.0200, L500.2900 ####[facility] [address] [place], [address] Eosinophils/100 WBC (Bld) 1.8 % Normal 0-5 [facility] Comment on above: Performed By: #### L 100.0200, L500.2900 ####[facility] [address] [place], [address] Erythrocyte distribution width (RBC) [Ratio] 12.1 % Normal 11.6-14.6 [facility] Comment on above: Performed By: #### L 100.0200, L500.2900 ####[facility] [address] [place], [address] Hematocrit (Bld) [Volume fraction] 38.7 % Normal 37-47 [facility] Comment on above: Performed By: #### L 100.0200, L500.2900 ####[facility] [address] [place], [address] Hemoglobin (Bld) [Mass/Vol] 13.1 g/dL Normal 12.0-15.0 [facility] Comment on above: Performed By: #### L 100.0200, L500.2900 ####[facility] [address] [place], [address] IG % 0.500 Normal 0.0-0.9 [facility] Comment on above: Result Comment: IG% - Immature Granulocytes (promyelocytes, myelocytes and metamyelocytes) > 1% indicates that a LEFT SHIFT is Present. Performed By: #### L 100.0200, L500.2900 ####[facility] [address] [place], [address] Lymphocytes/100 WBC (Bld) 18.1 % Low 19-41 [facility] Comment on above: Performed By: #### L 100.0200, L500.2900 ####[facility] [address] [place], [address] MCH (RBC) [Entitic mass] 30.9 pg Normal 27.0-32.0 [facility] Comment on above: Performed By: #### L 100.0200, L500.2900 ####[facility] [address] [place], [address] MCHC (RBC) [Mass/Vol] 33.9 g/dL Normal 32-36 [facility] Comment on above: Performed By: #### L 100.0200, L500.2900 ####[facility] [address] [place], [address] MCV (RBC) [Entitic vol] 91.3 fL Normal 81-99 [facility] Comment on above: Performed By: #### L 100.0200, L500.2900 ####[facility] [address] [place], [address] Monocytes/100 WBC (Bld) 13.4 % High 0-10 [facility] Comment on above: Performed By: #### L 100.0200, L500.2900 ####[facility] [address] [place], [address] Neutrophils/100 WBC (Bld) 65.2 % Normal 47-70 [facility] Comment on above: Performed By: #### L 100.0200, L500.2900 ####[facility] [address] [place], [address] Platelet mean volume (Bld) [Entitic vol] 9.7 fL Normal 6.2-12.0 [facility] Comment on above: Performed By: #### L 100.0200, L500.2900 ####[facility] [address] [place], [address] Platelets (Bld) [#/Vol] 391 10*3/uL Normal 150-450 [facility] Comment on above: Performed By: #### L 100.0200, L500.2900 ####[facility] [address] [place], [address] RBC (Bld) [#/Vol] 4.24 10*6/uL Normal 4.2-5.4 [facility] Comment on above: Performed By: #### L 100.0200, L500.2900 ####[facility] [address] [place], [address] RDW SD 40.6 fl Normal 35.1-43.9 [facility] Comment on above: Performed By: #### L 100.0200, L500.2900 ####[facility] [address] [place], [address] WBC (Bld) [#/Vol] 6.2 10*3/uL Normal 4.4-11.[address] [facility] Comment on above: Performed By: #### L 100.0200, L500.2900 ####[facility] [address] [place], [address] Carbon dioxide measurementOr dered By: [facility] on 02-29-2024 CO2 [Moles/Vol] 26.0 mmol/L 21.0-32.0 [facility] Chloride measurementOrdered By: [facility] on 02-29-2024 Chloride [Moles/Vol] 109 mmol/L High 98-107 [facility] Cholesterol/HDL ratioOrdered By: [facility] on 02-29-2024 Cholesterol.total/Choles terol in HDL [Mass ratio] 2.40 {ratio} [facility] [employer] Profile[employer] Albumin [Mass/Vol] 3.8 g/dL Normal 3.2-5.[address] [facility] Comment on above: Performed By: #### L 100.0200, L500.2900 ####[facility] [address] [place], [address] Albumin/Globulin [Mass ratio] 1.2 {ratio} Normal 0.9-2.4 [facility] Comment on above: Performed By: #### L 100.0200, L500.2900 ####[facility] [address] [place], [address] ALK P 64 U/L Normal 45-117 [facility] Comment on above: Performed By: #### L 100.0200, L500.2900 ####[facility] [address] [place], [address] ALT [Catalytic activity/Vol] 23 U/L Normal 13-56 [facility] Comment on above: Performed By: #### L 100.0200, L500.2900 ####[facility] [address] [place], [address] AST [Catalytic activity/Vol] 18 U/L Normal 15-37 [facility] Comment on above: Performed By: #### L 100.0200, L500.2900 ####[facility] [address] [place], [address] Bilirubin [Mass/Vol] 1.10 mg/dL High 0.20-1.00 [facility] Comment on above: Result Comment: For patients on eltrombopag therapy, use of Dimension Caspian TBIL is not recommended. Performed By: #### L 100.0200, L500.2900 ####[facility] [address] [place], [address] Bilirubin.direct [Mass/Vol] 0.30 mg/dL Normal 0.00-0.30 [facility] Comment on above: Performed By: #### L 100.0200, L500.2900 ####[facility] [address] [place], [address] BUN/CRE 13.3 RATIO Normal 10-20 [facility] Comment on above: Performed By: #### L 100.0200, L500.2900 ####[facility] [address] [place], [address] CA,Total 8.8 mg/dL Normal 8.5-10.1 [facility] Comment on above: Performed By: #### L 100.0200, L500.2900 ####[facility] [address] [place], [address] Chloride [Moles/Vol] 109 mmol/L High 98-107 [facility] Comment on above: Performed By: #### L 100.0200, L500.2900 ####[facility] [address] [place], [address] CHOL:HDL 2.40 Normal [facility] Comment on above: Performed By: #### L 100.0200, L500.2900 ####[facility] [address] [place], [address] Cholesterol [Mass/Vol] 159 mg/dL Normal 200 [facility] Comment on above: Result Comment: <200 mg/dL Desirable 200-240 mg/dL Borderline >240 mg/dL High Risk Performed By: #### L 100.0200, L500.2900 ####[facility] [address] [place], [address] Cholesterol in HDL [Mass/Vol] 67 mg/dL Normal [facility] Comment on above: Result Comment: The drugs N-Acetylcysteine and Metamizole may falsely depress this assay. Reference Range HDL <40 mg/dL Low HDL Cholesterol HDL >or= 60 mg/dL High HDL Cholesterol Performed By: #### L 100.0200, L500.2900 ####[facility] [address] [place], [address] Cholesterol in LDL [Mass/Vol] 70 mg/dL Normal 0-130 [facility] Comment on above: Performed By: #### L 100.0200, L500.2900 ####[facility] [address] [place], [address] Cholesterol in VLDL [Mass/Vol] 22 mg/dL Normal 5-40 [facility] Comment on above: Performed By: #### L 100.0200, L500.2900 ####[facility] [address] [place], [address] CO2 [Moles/Vol] 26.0 mmol/L Normal 21.0-32.0 [facility] Comment on above: Performed By: #### L 100.0200, L500.2900 ####[facility] [address] [place], [address] Creatinine [Mass/Vol] 0.83 mg/dL Normal 0.55-1.02 [facility] Comment on above: Result Comment: The validity of the calculated GFR GFRAA in patients over 70 years has not been determined. Clinical correlation is essential. Performed By: #### L 100.0200, L500.2900 ####[facility] [address] [place], [address] EST GFR - AA 93 mL/min Normal >60 [facility] Comment on above: Result Comment: Afri can [place] GFR Calc Performed By: #### L 100.0200, L500.2900 ####[facility] [address] [place], [address] GAP 4 Low 5-15 [facility] Comment on above: Performed By: #### L 100.0200, L500.2900 ####[facility] [address] [place], [address] GFR/1.73 sq M.predicted among non-blacks MDRD (S/P/Bld) [Vol rate/Area] 77 mL/min/{1.73_m2} Normal >60 [facility] Comment on above: Result Comment: Non- GFR Calc Performed By: #### L 100.0200, L500.2900 ####[facility] [address] [place], [address] Globulin (S) [Mass/Vol] 3.3 g/dL Normal 2.2-4.2 [facility] Comment on above: Performed By: #### L 100.0200, L500.2900 ####[facility] [address] [place], [address] Glucose [Mass/Vol] 86 mg/dL Normal 74-[address] [facility] Comment on above: Performed By: #### L 100.0200, L500.2900 ####[facility] [address] [place], [address] LDH 196 U/L Normal 84-246 [facility] Comment on above: Performed By: #### L 100.0200, L500.2900 ####[facility] [address] [place], [address] Phosphate [Mass/Vol] 2.6 mg/dL Normal 2.5-4.9 [facility] Comment on above: Performed By: #### L 100.0200, L500.2900 ####[facility] [address] [place], [address] Potassium [Moles/Vol] 3.6 mmol/L Normal 3.5-5.1 [facility] Comment on above: Performed By: #### L 100.0200, L500.2900 ####[facility] [address] [place], [address] Sodium [Moles/Vol] 140 mmol/L Normal 136-[address] [facility] Comment on above: Performed By: #### L 100.0200, L500.2900 ####[facility] [address] [place], [address] T PROT 7.1 g/dL Normal 6.4-8.2 [facility] Comment on above: Performed By: #### L 100.0200, L500.2900 ####[facility] [address] [place], [address] Triglyceride [Mass/Vol] 112 mg/dL Normal [facility] Comment on above: Result Comment: The drugs N-Acetylcysteine and Metamizole may falsely depress this assay. Serum Triglycerides Reference Interval Normal <150 mg/dL Borderline high 150 - 199 mg/dL High 200 - 499 mg/dL Very High > or = 500 mg/dL Performed By: #### L 100.0200, L500.2900 ####[facility] [address] [place], [address] Urea nitrogen [Mass/Vol] 11 mg/dL Normal 7-18 [facility] Comment on above: Performed By: #### L 100.0200, L500.2900 ####[facility] [address] [place], [address] URIC 3.3 mg/dL Normal 2.6-6.0 [facility] Comment on above: Result Comment: The drugs N-Acetylcysteine and Metamizole may falsely depress this assay. Performed By: #### L 100.0200, L500.2900 ####[facility] [address] [place], [address] Eosinophil percentageOrdered By: Philippe Gonzalez on 02-29-2024 Eosinophils/100 WBC (Bld) 1.8 % 0-5 [facility] Erythrocyte distribution wid th ratioOrdered By: Philippe Gonzalez on 02-29-2024 Erythrocyte distribution width (RBC) [Ratio] 12.1 % 11.6-14.6 [facility] Erythrocyte distribution wid th ratioOrdered By: [facility] [employer] on 02-29-2024 Erythrocyte distribution width (RBC) [Ratio] 12.1 % 11.6-14.6 [facility] Erythrocyte distribution wid th standard deviationOrdered By: Philippe Gonzalez on 02-29-2024 Erythrocyte distribution width (RBC) [Entitic vol] 40.6 fL 35.1-43.9 [facility] Estimated glomerular filtrat ion rate (GFR) AmericanOrdered By: [employer] on 02-29-2024 Estimated GFR (MDRD) Amer 93 mL/min >60 [facility] Comment on above: GFR Calc Glomerular filtration rate ( GFR) estimationOrdered By: [employer] on 02-29-2024 Estimated GFR (MDRD) Non-Af Amer 77 mL/min >60 [facility] Comment on above: Non- GFR Calc Glucose measurementOrdered B y: [email or web address] [facility] on 02-29-2024 Glucose [Mass/Vol] 86 mg/dL 74-[address] [facility] Hematocrit Auto (Bld) [Volum e fraction]Ordered By: Philippe Gonzalez on 02-29-2024 Hematocrit (Bld) [Volume fraction] 38.7 % 37-47 [facility] Hematocrit Auto (Bld) [Volum e fraction]Ordered By: [email or web address] [facility] on 02-29-2024 Hematocrit (Bld) [Volume fraction] 38.7 % 37-47 [facility] Hemoglobin measurementOrdere d By: Philippe Gonzalez on 02-29-2024 Hemoglobin (Bld) [Mass/Vol] 13.1 g/dL 12.0-15.0 [facility] Hemoglobin measurementOrdere d By: [facility] on 02-29-2024 Hemoglobin (Bld) [Mass/Vol] 13.1 g/dL 12.0-15.0 [facility] High density lipoprotein (HD L) measurementOrdered By: [facility] on 02-29-2024 Cholesterol in HDL [Mass/Vol] 67 mg/dL >40 [facility] Comment on above: The drugs N-Acetylcy steine and Metamizole may falsely depress this assay. Reference Range HDL <40 mg/dL Low HDL Cholesterol HDL >or= 60 mg/dL High HDL Cholesterol IgA [Mass/Vol]Ordered By: Sherri zuñiga [facility] on 02-29-2024 Immunoglobulin A 177 mg/dL 87-352 [facility] IgG [Mass/Vol]Ordered By: Sherri zuñiga [facility] on 02-29-2024 Immunoglobulin G 1171 mg/dL [phone] [facility] Immature granulocyte percent ageOrdered By: [employer] on 02-29-2024 Immature granulocytes/100 WBC (Bld) 0.500 % 0.0-0.9 [facility] Comment on above: IG% - Immature Granu locytes (promyelocytes, myelocytes and metamyelocytes) > 1% indicates that a LEFT SHIFT is Present. Immature granulocytes/100 WB C Auto (Bld)Ordered By: Philippe Gonzalez on 02-29-2024 Immature granulocytes/100 WBC (Bld) 0.500 % 0.0-0.9 [facility] Comment on above: IG% - Immature Granu locytes (promyelocytes, myelocytes and metamyelocytes) > 1% indicates that a LEFT SHIFT is Present. Immunoglobulin M measurement Ordered By: Philippe Gonzalez on 02-29-2024 Immunoglobulin M 78 mg/dL 26-217 [facility] Comment on above: Performed at: [address] [id number] Director: Ej Landers PhD, Phone: [phone] Laboratory - Chemistry and C hemistry - challengeOrdered By: [facility] on 02-29-2024 AST [Catalytic activity/Vol] 18 U/L 15-37 [facility] Lactate dehydrogenase (LDH) measurementOrdered By: [facility] on 02-29-2024 LDH [Catalytic activity/Vol] 196 U/L 84-246 [facility] Low density lipoprotein (LDL ) cholesterol measurementOrdered By: [facility] on 02-29-2024 Cholesterol in LDL [Mass/Vol] 70 mg/dL 0-130 [facility] Lymphocytes Auto (Unsp spec) [#/Vol]Ordered By: Philippe Gonzalez on 02-29-2024 Lymphocytes (Bld) [#/Vol] 1.12 10*3/uL 0.83-4.51 [facility] Lymphocytes Auto (Unsp spec) [#/Vol]Ordered By: [facility] on 02-29-2024 Lymphocytes (Bld) [#/Vol] 1.12 10*3/uL 0.83-4.51 [facility] Lymphocytes/100 WBC Auto (Un sp spec)Ordered By: Philippe Gonzalez on 02-29-2024 Lymphocytes/100 WBC (Bld) 18.1 % Low 19-41 [facility] MCV (mean corpuscular volume ) determinationOrdered By: Philippe Gonzalez on 02-29-2024 MCV (RBC) [Entitic vol] 91.3 fL 81-99 [facility] MCV (mean corpuscular volume ) determinationOrdered By: [facility] on 02-29-2024 MCV (RBC) [Entitic vol] 91.3 fL 81-99 [facility] Mean corpuscular hemoglobin (MCH) determinationOrdered By: Philippe Gonzalez on 02-29-2024 MCH (RBC) [Entitic mass] 30.9 pg 27.0-32.0 [facility] Mean corpuscular hemoglobin (MCH) determinationOrdered By: [employer] on 02-29-2024 MCH (RBC) [Entitic mass] 30.9 pg 27.0-32.0 [facility] Mean corpuscular hemoglobin concentration (MCHC) determinationOrdered By: Philippe Gonzalez on 02-29-2024 MCHC (RBC) [Mass/Vol] 33.9 g/dL -36 [facility] Mean corpuscular hemoglobin concentration (MCHC) determinationOrdered By: [employer] on 02-29-2024 MCHC (RBC) [Mass/Vol] 33.9 g/dL 32-36 [facility] Mean platelet volume determi nationOrdered By: Philippe Gonzalez on 02-29-2024 Platelet mean volume (Bld) [Entitic vol] 9.7 fL 6.2-12.0 [facility] Mean platelet volume determi nationOrdered By: [employer] on 02-29-2024 Platelet mean volume (Bld) [Entitic vol] 9.7 fL 6.2-12.0 [facility] Monocyte percentageOrdered B y: Philippe Gonzalez on 02-29-2024 Monocytes/100 WBC (Bld) 13.4 % High 0-10 [facility] Neutrophil %Ordered By: [employer]EC[employer] on 02-29-2024 Neutrophils/100 WBC (Bld) 65.2 % 47-70 [facility] Neutrophil percentageOrdered By: Philippe Gonzalez on 02-29-2024 Neutrophils/100 WBC (Bld) 65.2 % 47-70 [facility] Nucleated red blood cell per centageOrdered By: Philippe Gonzalez on 02-29-2024 Nucleated RBC/100 WBC (Bld) [Ratio] 0 % 0-5 [facility] Nucleated red blood cell per centageOrdered By: [employer] on 02-29-2024 Nucleated RBC/100 WBC (Bld) [Ratio] 0 % 0-5 [facility] Phosphorus measurementOrdere d By: [employer] on 02-29-2024 Phosphorus Level 2.6 mg/dL 2.5-4.9 [facility] Platelet countOrdered By: Sherri Gonzalez on 02-29-2024 Platelets (Bld) [#/Vol] 391 10*3/uL 150-450 [facility] Potassium measurementOrdered By: EMPLOYEE [facility] on 02-29-2024 Potassium [Moles/Vol] 3.6 mmol/L 3.5-5.1 [facility] RBC Auto (Bld) [#/Vol]Ordere d By: Philippe Gonzalez on 02-29-2024 RBC (Bld) [#/Vol] 4.24 10*6/uL 4.2-5.4 [facility] RBC Auto (Bld) [#/Vol]Ordere d By: [facility] on 02-29-2024 RBC (Bld) [#/Vol] 4.24 10*6/uL 4.2-5.4 [facility] RDWOrdered By: [facility] on 02-29-2024 Erythrocyte distribution width (RBC) [Entitic vol] 40.6 fL 35.1-43.9 [facility] Reticulocytes (Bld) [#/Vol]O rdered By: [facility] on 02-29-2024 Nucleated RBC Absolute Count (auto) Not Reportable [facility] Serum anion gap measurementO rdered By: [facility] on 02-29-2024 Anion gap [Moles/Vol] 4 mmol/L Low 5-15 [facility] Serum globulin measurementOr dered By: [facility] on 02-29-2024 Globulin (S) [Mass/Vol] 3.3 g/dL 2.2-4.2 [facility] Serum or plasma alanine hernandez otransferase (ALT) measurementOrdered By: [facility] on 02-29-2024 ALT [Catalytic activity/Vol] 23 U/L 13-56 [facility] Serum or plasma albumin gem urement (mass/volume)Ordered By: [facility] on 02-29-2024 Albumin [Mass/Vol] 3.8 g/dL 3.2-5.[address] [facility] Serum or plasma alkaline chris sphatase measurementOrdered By: [facility] on 02-29-2024 ALP [Catalytic activity/Vol] 64 U/L 45-117 [facility] Serum or plasma calcium gem urement (mass/volume)Ordered By: [facility] on 02-29-2024 Calcium [Mass/Vol] 8.8 mg/dL 8.5-10.[address] [facility] Serum or plasma cholesterol measurement (mass/volume)Ordered By: [facility] on 02-29-2024 Cholesterol [Mass/Vol] 159 mg/dL <200 [facility] Comment on above: <200 mg/dL Desirable 200-240 mg/dL Borderline >240 mg/dL High Risk Serum or plasma creatinine m easurement (mass/volume)Ordered By: [facility] on 02-29-2024 Creatinine [Mass/Vol] 0.83 mg/dL 0.55-1.02 [facility] Comment on above: The validity of the calculated GFR & GFRAA in patients over 70 years has not been determined. Clinical correlation is essential. Serum or plasma urea nitroge n measurement (mass/volume)Ordered By: [facility] on 02-29-2024 Urea nitrogen [Mass/Vol] 11 mg/dL 7-18 [facility] Serum or plasma uric acid me asurement (mass/volume)Ordered By: [facility] on 02-29-2024 Urate [Mass/Vol] 3.3 mg/dL 2.6-6.0 [facility] Comment on above: The drugs N-Acetylcy steine and Metamizole may falsely depress this assay. Sodium levelOrdered By: [facility] on 02-29-2024 Sodium [Moles/Vol] 140 mmol/L 136-[address] [facility] Total proteinOrdered By: [facility] on 02-29-2024 Protein [Mass/Vol] 7.1 g/dL 6.4-8.[address] [facility] Triglycerides measurementOrd ered By: [facility] on 02-29-2024 Triglyceride [Mass/Vol] 112 mg/dL <199 [facility] Comment on above: The drugs N-Acetylcy steine and Metamizole may falsely depress this assay.Serum Triglycerides Reference Interval Normal <150 mg/dL Borderline high 150 - 199 mg/dL High 200 - 499 mg/dL Very High > or = 500 mg/dL Very low density lipoprotein (VLDL) cholesterol measurementOrdered By: [facility] on 02-29-2024 VLDL Cholesterol 22 mg/dL 5-40 [facility] White blood cell (WBC) count Ordered By: Philippe Gonzalez on 02-29-2024 WBC (Bld) [#/Vol] 6.2 10*3/uL 4.4-11.[address] [facility] White blood cell (WBC) count Ordered By: [facility] on 02-29-2024 WBC (Bld) [#/Vol] 6.2 10*3/uL 4.4-11.[address] [facility] Anti-dsDNA Abon 01-03-2024 ANTI-DNA (DS)AB 3 IU/mL Normal 0-9 [facility] Comment on above: Result Comment: Nega tive <5 Equivocal 5 - 9 Positive >9 Performed at: [address] [id number] Pharmacogeneticist: Ej Landers PhD, Phone: [phone] Performed By: #### L 501.4405, L3100.5700, L501.4100, L400.0001, L501.1000, L101.9900, L501.6710, L100.0100, L3100.5800, L3100.5500, L501.1105 ####[facility] [address] [place], [address] Complement C3on 01-01-2024 COMP C3 123 mg/dL Normal 82-167 [facility] Comment on above: Result Comment: Perf ormed at: [address] [id number] Pharmacogeneticist: Ej Landers PhD, Phone: [phone] Performed By: #### L 501.4405, L3100.5700, L501.4100, L400.0001, L501.1000, L101.9900, L501.6710, L100.0100, L3100.5800, L3100.5500, L501.1105 ####[facility] [address] [place], [address] Complement C4on 01-01-2024 COMPLEMENT, C4 22 mg/dL Normal 12-38 [facility] Comment on above: Performed By: #### L 501.4405, L3100.5700, L501.4100, L400.0001, L501.1000, L101.9900, L501.6710, L100.0100, L3100.5800, L3100.5500, L501.1105 ####[facility] [address] [place], [place], [phone] AST(SGOT)on 12-31-2023 AST [Catalytic activity/Vol] 15 U/L Normal 15-37 [facility] Comment on above: Performed By: #### L 501.4405, L3100.5700, L501.4100, L400.0001, L501.1000, L101.9900, L501.6710, L100.0100, L3100.5800, L3100.5500, L501.1105 ####[facility] [address] [place], [place], [phone] Alanine Aminotransferas (SGP T)on 12-31-2023 ALT [Catalytic activity/Vol] 21 U/L Normal 13-56 [facility] Comment on above: Performed By: #### L 501.4405, L3100.5700, L501.4100, L400.0001, L501.1000, L101.9900, L501.6710, L100.0100, L3100.5800, L3100.5500, L501.1105 ####[facility] [address] [place], [place], [phone] BUNon 12-31-2023 Urea nitrogen [Mass/Vol] 15 mg/dL Normal 7-18 [facility] Comment on above: Performed By: #### L 501.4405, L3100.5700, L501.4100, L400.0001, L501.1000, L101.9900, L501.6710, L100.0100, L3100.5800, L3100.5500, L501.1105 ####[facility] [address] [place], [place], [phone] CBC W/Diff, Automatedon 10-0 Absolute Lymph 0.89 X10 3/uL Normal 0.83-4.51 [facility] Comment on above: Performed By: #### L 501.4405, L3100.5700, L501.4100, L400.0001, L501.1000, L101.9900, L501.6710, L100.0100, L3100.5800, L3100.5500, L501.1105 ####[facility] [address] [place], [place], [phone]) Absolute Neut 3.6 X10 3/uL Normal 2.0-7.7 [facility] Comment on above: Performed By: #### L 501.4405, L3100.5700, L501.4100, L400.0001, L501.1000, L101.9900, L501.6710, L100.0100, L3100.5800, L3100.5500, L501.1105 ####[facility] [address] [place], [place], [phone] Basophils/100 WBC (Bld) 0.9 % Normal 0-1 [facility] Comment on above: Performed By: #### L 501.4405, L3100.5700, L501.4100, L400.0001, L501.1000, L101.9900, L501.6710, L100.0100, L3100.5800, L3100.5500, L501.1105 ####[facility] [address] [place], [place], [phone]) Eosinophils/100 WBC (Bld) 2.6 % Normal 0-5 [facility] Comment on above: Performed By: #### L 501.4405, L3100.5700, L501.4100, L400.0001, L501.1000, L101.9900, L501.6710, L100.0100, L3100.5800, L3100.5500, L501.1105 ####[facility] [address] [place], [address] Erythrocyte distribution width (RBC) [Ratio] 12.4 % Normal 11.6-14.6 [facility] Comment on above: Performed By: #### L 501.4405, L3100.5700, L501.4100, L400.0001, L501.1000, L101.9900, L501.6710, L100.0100, L3100.5800, L3100.5500, L501.1105 ####[facility] [address] [place], [address] Hematocrit (Bld) [Volume fraction] 39.5 % Normal 37-47 [facility] Comment on above: Performed By: #### L 501.4405, L3100.5700, L501.4100, L400.0001, L501.1000, L101.9900, L501.6710, L100.0100, L3100.5800, L3100.5500, L501.1105 ####[facility] [address] [facility] [place], [address] Hemoglobin (Bld) [Mass/Vol] 12.8 g/dL Normal 12.0-15.0 [facility] Comment on above: Performed By: #### L 501.4405, L3100.5700, L501.4100, L400.0001, L501.1000, L101.9900, L501.6710, L100.0100, L3100.5800, L3100.5500, L501.1105 ####[facility] [address] [facility] [place], [address] IG% 0.500 Normal 0.0-0.9 [facility] Comment on above: Result Comment: IG% - Immature Granulocytes (promyelocytes, myelocytes and metamyelocytes) > 1% indicates that a LEFT SHIFT is Present. Performed By: #### L 501.4405, L3100.5700, L501.4100, L400.0001, L501.1000, L101.9900, L501.6710, L100.0100, L3100.5800, L3100.5500, L501.1105 ####[facility] [address] [place], [address] Lymphocytes/100 WBC (Bld) 15.5 % Low 19-41 [facility] Comment on above: Performed By: #### L 501.4405, L3100.5700, L501.4100, L400.0001, L501.1000, L101.9900, L501.6710, L100.0100, L3100.5800, L3100.5500, L501.1105 ####[facility] [address] [place], [address] MCH (RBC) [Entitic mass] 30.4 pg Normal 27.0-32.0 [facility] Comment on above: Performed By: #### L 501.4405, L3100.5700, L501.4100, L400.0001, L501.1000, L101.9900, L501.6710, L100.0100, L3100.5800, L3100.5500, L501.1105 ####[facility] [address] [place], [address] MCHC (RBC) [Mass/Vol] 32.4 g/dL Normal 32-36 [facility] Comment on above: Performed By: #### L 501.4405, L3100.5700, L501.4100, L400.0001, L501.1000, L101.9900, L501.6710, L100.0100, L3100.5800, L3100.5500, L501.1105 ####[facility] [address] [place], [address] MCV (RBC) [Entitic vol] 93.8 fL Normal 81-99 [facility] Comment on above: Performed By: #### L 501.4405, L3100.5700, L501.4100, L400.0001, L501.1000, L101.9900, L501.6710, L100.0100, L3100.5800, L3100.5500, L501.1105 ####[facility] [address] [facility] [place], [address] Monocytes/100 WBC (Bld) 17.8 % High 0-10 [facility] Comment on above: Performed By: #### L 501.4405, L3100.5700, L501.4100, L400.0001, L501.1000, L101.9900, L501.6710, L100.0100, L3100.5800, L3100.5500, L501.1105 ####[facility] [address] [facility] [place], [address]( Neutrophils/100 WBC (Bld) 62.7 % Normal 47-70 [facility] Comment on above: Performed By: #### L 501.4405, L3100.5700, L501.4100, L400.0001, L501.1000, L101.9900, L501.6710, L100.0100, L3100.5800, L3100.5500, L501.1105 ####[facility] [address] [facility] [place], [address]( Nucleated RBC (Bld) [#/Vol] 0 10*3/uL Normal 0-5 [facility] Comment on above: Performed By: #### L 501.4405, L3100.5700, L501.4100, L400.0001, L501.1000, L101.9900, L501.6710, L100.0100, L3100.5800, L3100.5500, L501.1105 ####[facility] [address] [facility] [place], [address]( Platelet mean volume (Bld) [Entitic vol] 9.5 fL Normal 6.2-12.0 [facility] Comment on above: Performed By: #### L 501.4405, L3100.5700, L501.4100, L400.0001, L501.1000, L101.9900, L501.6710, L100.0100, L3100.5800, L3100.5500, L501.1105 ####[facility] [address] [place], [address] Platelets (Bld) [#/Vol] 386 10*3/uL Normal 150-450 [facility] Comment on above: Performed By: #### L 501.4405, L3100.5700, L501.4100, L400.0001, L501.1000, L101.9900, L501.6710, L100.0100, L3100.5800, L3100.5500, L501.1105 ####[facility] [address] [place], [address] RBC (Bld) [#/Vol] 4.21 10*6/uL Normal 4.2-5.4 [facility] Comment on above: Performed By: #### L 501.4405, L3100.5700, L501.4100, L400.0001, L501.1000, L101.9900, L501.6710, L100.0100, L3100.5800, L3100.5500, L501.1105 ####[facility] [address] [place], [address] RDW SD 42.5 fl Normal 35.1-43.9 [facility] Comment on above: Performed By: #### L 501.4405, L3100.5700, L501.4100, L400.0001, L501.1000, L101.9900, L501.6710, L100.0100, L3100.5800, L3100.5500, L501.1105 ####[facility] [address] [place], [address] WBC (Bld) [#/Vol] 5.7 10*3/uL Normal 4.4-11.[address] [facility] Comment on above: Performed By: #### L 501.4405, L3100.5700, L501.4100, L400.0001, L501.1000, L101.9900, L501.6710, L100.0100, L3100.5800, L3100.5500, L501.1105 ####[facility] [address] [place], [place], [phone] CRPon 12-31-2023 C-REACTIVE PROT < 2.90 Normal 0.0-3.0 [facility] Comment on above: Result Comment: C-Re active Protein (CRP) provides useful information for the diagnosis, therapy and monitoring of inflammatory processes and associated diseases. For the evaluation of Relative Risk for Cardiovascular Disease, a High Sensitivity CRP (HSCRP) should be ordered. Performed By: #### L 501.4405, L3100.5700, L501.4100, L400.0001, L501.1000, L101.9900, L501.6710, L100.0100, L3100.5800, L3100.5500, L501.1105 ####[facility] [address] [place], [place], [phone] Erythrocyte Sed Rateon 12-30 SED RATE 1 mm/hr Normal 0-30 [facility] Comment on above: Performed By: #### L 501.4405, L3100.5700, L501.4100, L400.0001, L501.1000, L101.9900, L501.6710, L100.0100, L3100.5800, L3100.5500, L501.1105 ####[facility] [address] [place], [place], [phone] Serum Creatinine AND GFRon 1 Creatinine [Mass/Vol] 0.84 mg/dL Normal 0.55-1.02 [facility] Comment on above: Result Comment: The validity of the calculated GFR GFRAA in patients over 70 years has not been determined. Clinical correlation is essential. Performed By: #### L 501.4405, L3100.5700, L501.4100, L400.0001, L501.1000, L101.9900, L501.6710, L100.0100, L3100.5800, L3100.5500, L501.1105 ####[facility] [address] [place], [place], [phone] EST GFR - AA 93 mL/min Normal >60 [facility] Comment on above: Result Comment: Afri can [place] GFR Calc Performed By: #### L 501.4405, L3100.5700, L501.4100, L400.0001, L501.1000, L101.9900, L501.6710, L100.0100, L3100.5800, L3100.5500, L501.1105 ####[facility] [address] [place], [place], [phone] GFR/1.73 sq M.predicted among non-blacks MDRD (S/P/Bld) [Vol rate/Area] 77 mL/min/{1.73_m2} Normal >60 [facility] Comment on above: Result Comment: Non- GFR Calc Performed By: #### L 501.4405, L3100.5700, L501.4100, L400.0001, L501.1000, L101.9900, L501.6710, L100.0100, L3100.5800, L3100.5500, L501.1105 ####[facility] [address] [place], [place], [phone] Urinalysis, Completeon 12-30 EPI,SQUAMOUS 0-5 SEEN Normal 5-10 [facility] Comment on above: Order Comment: CLEAN CATCH Performed By: #### L 501.4405, L3100.5700, L501.4100, L400.0001, L501.1000, L101.9900, L501.6710, L100.0100, L3100.5800, L3100.5500, L501.1105 ####[facility] [address] [place], [address] BACTERIA 0 SEEN Normal None Seen [facility] Comment on above: Order Comment: CLEAN CATCH Performed By: #### L 501.4405, L3100.5700, L501.4100, L400.0001, L501.1000, L101.9900, L501.6710, L100.0100, L3100.5800, L3100.5500, L501.1105 ####[facility] [address] [place], [place], [phone] Mucus Ql (Urine sed) 0 SEEN Normal [facility] Comment on above: Order Comment: CLEAN CATCH Performed By: #### L 501.4405, L3100.5700, L501.4100, L400.0001, L501.1000, L101.9900, L501.6710, L100.0100, L3100.5800, L3100.5500, L501.1105 ####[facility] [address] [place], [address] RBC 0 SEEN Normal 0-5 [facility] Comment on above: Order Comment: CLEAN CATCH Performed By: #### L 501.4405, L3100.5700, L501.4100, L400.0001, L501.1000, L101.9900, L501.6710, L100.0100, L3100.5800, L3100.5500, L501.1105 ####[facility] [address] [place], [place], [phone] WBC 0 SEEN Normal 0-5 [facility] Comment on above: Order Comment: CLEAN CATCH Performed By: #### L 501.4405, L3100.5700, L501.4100, L400.0001, L501.1000, L101.9900, L501.6710, L100.0100, L3100.5800, L3100.5500, L501.1105 ####[facility] [address] [place], [address] Chest PA and Lateralon 12-13 Chest PA and Lateral [facility] [address] [place], [place] [address] Chest PA and Lateral MR#: [id number] Acct: [id number] Name: PRAFUL KAHN Rep #: [id number] : 1975 F 48 From: Jose Perkins MD PCP: Status: REG CLI Study: Chest PA and Lateral Date of Exam: 12/14/23 Exam# [id number] Ordering Dr: SCOTT JONES [id number] STUDY: X-RAY CHEST REASON FOR EXAM: Female, 48 years old. Cough. TECHNIQUE: Frontal and lateral views of the chest. COMPARISON: December 23, 2015 FINDINGS: The lungs are clear and expanded. Stable healed granulomatous calcifications. There is no demonstrated pleural abnormality. Normal size heart. Normal mediastinum and chelly. Normal visualized pulmonary arteries. Normal visualized aortic arch and descending thoracic aorta. Normal visualized thoracic spine. Normal visualized ribs, clavicles, and shoulders. No abnormality of the visualized soft tissue structures of the upper abdomen. RAD/Chest PA and Lateral IMPRESSION: Stable chest with no acute or active cardiopulmonary disease. Electronically Signed: Jose Perkins MD at 10:32 EDT , CC: SCOTT JONES Pharmacist Manager: Signed Normal [facility] M100.019on 11-30-2023 SARS-CoV-2 (COVID-19) RNA CINTHIA+probe Ql (Unsp spec) Normal Reference Range = Negative SARS-CoV-2 (COVID 19) RT-PCR GeneXpert Instrument, PCR method SARS-CoV-2 (COVID 19) Positive A SARS-CoV-2 (COVID 19 PCR) * This is an amended result. * A prior result that was reported as final has been changed. 11/30/23 1454 by ARIELLA Almeida [facility] Comment on above: Performed By: #### M 100.019 #### [facility] [address] [place], [address] Absolute lymphocyte countOrd ered By: COLLETTE PARKER on 07-03-2023 Lymphocytes Auto (Unsp spec) [#/Vol] 0.91 10*3/uL 0.83-4.51 [facility] Automated lymphocyte count a s percentage of total leukocytesOrdered By: COLLETTE PARKER on 07-03-2023 Lymphocytes/100 WBC Auto (Unsp spec) 17.8 % 19-41 [facility] Basophil percentageOrdered B y: COLLETTE PARKER on 07-03-2023 Basophil percentage 0-5 SEEN /hpf 0-5 [facility] Basophils/100 WBC (Bld) 0.8 % 0-1 [facility] Eosinophils/100 WBC (Bld) 2.2 % 0-5 [facility] Hemoglobin (Bld) [Mass/Vol] 13.0 g/dL 12.0-15.0 [facility] Monocytes/100 WBC (Bld) 16.4 % 0-10 [facility] Neutrophils (Bld) [#/Vol] 3.2 10*3/uL 2.0-7.7 [facility] Neutrophils/100 WBC (Bld) 62.6 % 47-70 [facility] WBC (Bld) [#/Vol] 5.1 10*3/uL 4.4-11.[address] [facility] Bilirubin Test strip Ql (U)O rdered By: COLLETTE PARKER on 07-03-2023 Bilirubin Ql (U) Negative Negative [facility] Determination of erythrocyte mean corpuscular volume (MCV)Ordered By: COLLETTE PARKER on 07-03-2023 MCV (RBC) [Entitic vol] 92.7 fL 81-99 [facility] Erythrocyte distribution wid th ratioOrdered By: COLLETTE PARKER on 07-03-2023 Erythrocyte distribution width (RBC) [Ratio] 11.9 % 11.6-14.6 [facility] Erythrocyte distribution wid th standard deviationOrdered By: COLLETTE PARKER on 07-03-2023 Erythrocyte distribution width (RBC) [Entitic vol] 40.8 fL 35.1-43.9 [facility] Erythrocyte sedimentation ra teOrdered By: COLLETTE PARKER on 07-03-2023 ESR (Bld) [Velocity] 2 mm/h 0-30 [facility] Hematocrit Auto (Bld) [Volum e fraction]Ordered By: COLLETTE PARKER on 07-03-2023 Hematocrit (Bld) [Volume fraction] 38.3 % 37-47 [facility] Immature granulocytes/100 WB C Auto (Bld)Ordered By: COLLETTE PARKER on 07-03-2023 Immature granulocytes/100 WBC (Bld) 0.200 % 0.0-0.9 [facility] Comment on above: IG% - Immature Granu locytes (promyelocytes, myelocytes and metamyelocytes) > 1% indicates that a LEFT SHIFT is Present. Ketones Test strip Ql (U)Ord ered By: COLLETTE PARKER on 07-03-2023 Ketones Ql (U) Negative Negative [facility] - Chemistry and C hemistry - challengeOrdered By: COLLETTE PARKER on 07-03-2023 ALT [Catalytic activity/Vol] 24 U/L 13-56 [facility] - Hematology and Cell countsOrdered By: COLLETTE PARKER on 07-03-2023 MCH (RBC) [Entitic mass] 31.5 pg 27.0-32.0 [facility] MCHC (RBC) [Mass/Vol] 33.9 g/dL 32-36 [facility] Nucleated RBC/100 WBC (Bld) [Ratio] 0 % 0-5 [facility] Platelet mean volume (Bld) [Entitic vol] 10.2 fL 6.2-12.0 [facility] Platelets (Bld) [#/Vol] 408 10*3/uL 150-450 [facility] Mucus LM Ql (Urine sed)Order ed By: COLLETTE PARKER on 07-03-2023 Mucus Ql (Urine sed) 0 SEEN /hpf [facility] Nitrite Test strip Ql (U)Ord ered By: COLLETTE PARKER on 07-03-2023 Nitrite Ql (U) Negative Negative [facility] No Panel InformationOrdered By: COLLETTE PARKER on 07-03-2023 Urine RBC 0 SEEN /hpf 0-5 [facility] C-Reactive Protein Extended Range < 2.90 mg/L 0.0-3.0 [facility] Comment on above: C-Reactive Protein ( CRP) provides useful information for thediagnosis, therapy and monitoring of inflammatory processesand associated diseases. For the evaluation of Relative Riskfor Cardiovascular Disease, a High Sensitivity CRP (HSCRP)should be ordered. Complement C3 118 mg/dL 82-167 [facility] Comment on above: Performed at: [facility] [address] [id number] Director: Ej Landers PhD, Phone: [phone] Estimated GFR (MDRD) Amer 80 mL/min >60 [facility] Comment on above: GFR Calc Estimated GFR (MDRD) Non-Af Amer 66 mL/min >60 [facility] Comment on above: Non- GFR Calc Protein Test strip Ql (U)Ord ered By: COLLETTE PARKER on 07-03-2023 Protein Ql (U) Negative Negative [facility] RBC Auto (Bld) [#/Vol]Ordere d By: COLLETTE PARKER on 07-03-2023 RBC (Bld) [#/Vol] 4.13 10*6/uL 4.2-5.4 [facility] Serum DNA double strand anti body assay (units/volume)Ordered By: COLLETTE PARKER on 07-03-2023 DNA double strand Ab Qn (S) 4 [IU]/mL 0-9 [facility] Comment on above: Negative <5 Equivoca l 5 - 9 Positive >9Performed at: [facility] [address] [id number] Director: Ej Landers PhD, Phone: [phone] Serum or plasma complement C 4 measurement (mass/volume)Ordered By: COLLETTE PARKER on 07-03-2023 Complement C4 [Mass/Vol] 20 mg/dL 12-38 [facility] Serum or plasma creatinine m easurement (mass/volume)Ordered By: COLLETTE PARKER on 07-03-2023 Creatinine [Mass/Vol] 0.95 mg/dL 0.55-1.02 [facility] Comment on above: The validity of the calculated GFR & GFRAA in patients over 70 years has not been determined. Clinical correlation is essential. Serum or plasma urea nitroge n measurement (mass/volume)Ordered By: COLLETTE PARKER on 07-03-2023 Urea nitrogen [Mass/Vol] 13 mg/dL 7-18 [facility] Squamous epithelial cells de tection in urine sediment by light microscopyOrdered By: COLLETTE PARKER on 07-03-2023 Epithelial cells.squamous LM Ql (Urine sed) 0-5 SEEN /hpf 5-10 [facility] Thin prep Papanicolaou smear with manual screeningOrdered By: COLLETTE PARKER on 07-03-2023 Thin prep Papanicolaou smear with manual screening 14 U/L 15-37 [facility] Urine blood detectionOrdered By: COLLETTE PARKER on 07-03-2023 RBC Ql (U) Negative Negative [facility] Urine clarityOrdered By: KALINA PARKER on 07-03-2023 Clarity (U) Clear Clear [facility] Urine color determinationOrd ered By: COLLETTE PARKER on 07-03-2023 Color (U) Yellow Yellow [facility] Urine glucose detectionOrder ed By: COLLETTE PARKER on 07-03-2023 Glucose Ql (U) Normal mg/dl Normal [facility] Urine leukocyte esterase det ection by dipstickOrdered By: COLLETTE PARKER on 07-03-2023 Leukocyte esterase Test strip Ql (U) 500 /ul Negative [facility] Urine pHOrdered By: COLLETTE ALSTON on 07-03-2023 pH (U) 6.5 [pH] 5.0 - 8.0 [facility] Urine sediment bacteria coun t by microscopy (number/high power field)Ordered By: COLLETTE PARKER on 07-03-2023 Bacteria LM.HPF (Urine sed) [#/Area] 0 /[HPF] None Seen [facility] Urine specific gravity measu rementOrdered By: COLLETTE PARKER on 07-03-2023 Specific gravity (U) [Rel density] 1.010 1.002-1.03 0 [facility] Urine urobilinogen measureme ntOrdered By: COLLETTE PARKER on 07-03-2023 Urobilinogen Ql (U) Normal mg/dl Normal [facility] FT4on 06-22-2023 Free T4 [Mass/Vol] 0.94 ng/dL Normal 0.89-1.76 [facility] ([place]) Comment on above: Result Comment: No te - New Reference Range in effect 19 Performed By: #### T , FT4 #### [address] [address] TSHon 06-22-2023 TSH 1.652 mIU/mL Normal 0.550-4.78 0 Counts Include 234 [facility] ([place]) Comment on above: Result Comment: No te - New Reference Range in effect 19 Performed By: #### T , FT4 #### [address] [id number] Clostridioides difficile nuc leic acid assay by PCROrdered By: Adam Geiger on 06-10-2023 C. difficile DNA CINTHIA+probe Ql (Unsp spec) [facility] No Panel InformationOrdered By: Adam Geiger on 06-10-2023 Giardia Antigen (JESSICA) [facility] Stool Calprotectin 35 ug/g 0-[address] [facility] Comment on above: Concentration Interp retation Follow-Up< 5 - 50 ug/g Normal None>50 -120 ug/g Borderline Re-evaluate in 4-6 weeks >120 ug/g Abnormal Repeat as clinically indicatedPerformed at: [facility] [id number] Director: Ej Landers PhD, Phone: [phone] at: [facility] [id number] Director: Lopez Wells MD, Phone: [phone] Stool Neutral Fats Normal . [facility] Comment on above: Normal (<60 Droplets /HPF) Ova and parasitesOrdered By: Adam Geiger on 06-10-2023 Ova and parasites identified LM Nom (Unsp spec) [facility] Qualitative fecal fat or lip idsOrdered By: Adam Geiger on 06-10-2023 Fat Ql (Stl) Increased . [facility] Comment on above: Normal (<100 Droplet s/HPF) Stool enteric pathogen panel by probe and target amplification methodOrdered By: Adam Geiger on 06-10-2023 Gastrointestinal pathogens panel CINTHIA+probe (Stl) [facility] Stool gastrointestinal hemog lobin detection by immunologic methodOrdered By: Adam Geiger on 06-10-2023 Lower GI hemoglobin IA Ql (Stl) [facility] Stool lactoferrin detection by immunoassayOrdered By: Adam Geiger on 06-10-2023 Lactoferrin IA Ql (Stl) [facility] Stool pancreatic elastase me asurement (mass/mass)Ordered By: Adam Geiger on 06-10-2023 Elastase.pancreatic (Stl) [Mass/Mass] 170 >200 [facility] Comment on above: Result Units: ug [address] st./g Severe Pancreatic Insufficiency: <100 Moderate Pancreatic Insufficiency: 100 - 200 Normal: >200Performed at: BN - [facility] [address] [id number] Director: Lopez Wells MD, Phone: [phone] No Panel InformationOrdered By: Judith Ramos on 04-10-2023 Follicle Stimulating Hormone 8.3 mIU/mL [facility] Comment on above: NORMAL REFERENCE RAN GES FEMALE FOLLICULAR 2.3 - 12.6 mIU/mL MID-CYCLE PEAK 5.2 - 17.5 mIU/mL LUTEAL 1.7 - 12.9 mIU/mL POST-MENOPAUSAL ON MHT 5.9 - 72.8 mIU/mL NOT ON MHT 12.7 - 132.2 mlU/mL MALE 0.7 - 10.8 mIU/mL Serum or plasma estradiol (E 2) measurement (mass/volume)Ordered By: Judith Ramos on 04-10-2023 E2 [Mass/Vol] 225.9 pg/mL [facility] Comment on above: NORMAL REFERENCE RAN GES FEMALE FOLLICULAR 21.4 - 164.8 pg/mL MID-CYCLE PEAK 49.9 - 367.2 pg/mL LUTEAL 40.2 - 259.0 pg/mL POST-MENOPAUSAL ON MHT <11.0 - 462.1 pg/mL NOT ON MHT <11.0 - 58.3 pg/mL MALE <11.0 - 52.5 pg/mL NOTE:[employer] HAS CONFIRMED THE DRUG FULVETRANT (FASLODEX) MAY CAUSE FALSELY ELEVATED ESTRADIOL RESULTS WHEN USING THIS TEST METHOD. IF PATIENT IS TAKING FULVESTRANT AN ALTERNATIVE METHOD SHOULD BE USED TO DETERMINE ESTRADIOL CONCENTRATION. Absolute lymphocyte countOrd ered By: CHARMIANE NAVAS on 03-06-2023 Lymphocytes Auto (Unsp spec) [#/Vol] 0.90 10*3/uL 0.83-4.51 [facility] Absolute reticulocyte countO rdered By: CHARMAINE NAVAS on 03-06-2023 Reticulocytes (Bld) [#/Vol] 0.00 10*3/uL 0-5 [facility] Basophil percentageOrdered B y: CHARMAINE NAVAS on 03-06-2023 Basophil percentage 3.2 mg/dL 2.5-4.9 [facility] Bilirubin [Mass/Vol] 0.60 mg/dL 0.20-1.00 [facility] Comment on above: For patients on eltr ombopag therapy, use of Dimension Caspian TBIL is not recommended. Chloride [Moles/Vol] 106 mmol/L 98-107 [facility] Cholesterol [Mass/Vol] 159 mg/dL <200 [facility] Comment on above: <200 mg/dL Desirable 200-240 mg/dL Borderline >240 mg/dL High Risk Glucose [Mass/Vol] 86 mg/dL 74-[address] [facility] LDH [Catalytic activity/Vol] 187 U/L 84-246 [facility] Neutrophils (Bld) [#/Vol] 3.7 10*3/uL 2.0-7.7 [facility] Potassium [Moles/Vol] 4.1 mmol/L 3.5-5.1 [facility] Protein [Mass/Vol] 7.5 g/dL 6.4-8.[address] [facility] Sodium [Moles/Vol] 137 mmol/L 136-[address] [facility] Triglyceride [Mass/Vol] 42 mg/dL <199 [facility] Comment on above: The drugs N-Acetylcy steine and Metamizole may falsely depress this assay.Serum Triglycerides Reference Interval Normal <150 mg/dL Borderline high 150 - 199 mg/dL High 200 - 499 mg/dL Very High > or = 500 mg/dL WBC (Bld) [#/Vol] 5.7 10*3/uL 4.4-11.[address] [facility] Bilirubin Test strip Ql (U)O rdered By: CHARMAINE NAVAS on 03-06-2023 Bilirubin Ql (U) Negative Negative [facility] Blood erythrocytes count (nu mber/volume)Ordered By: CHARMAINE NAVAS on 03-06-2023 RBC (Bld) [#/Vol] 4.32 10*6/uL 4.2-5.4 [facility] Blood hemoglobin measurement (mass/volume)Ordered By: CHARMAINE NAVAS on 03-06-2023 Hemoglobin (Bld) [Mass/Vol] 13.5 g/dL 12.0-15.0 [facility] Blood platelet mean volumeOr dered By: CHARMAINE NAVAS on 03-06-2023 Platelet mean volume (Bld) [Entitic vol] 9.7 fL 6.2-12.0 [facility] Determination of erythrocyte mean corpuscular volume (MCV)Ordered By: CHARMAINE NAVAS on 03-06-2023 MCV (RBC) [Entitic vol] 93.5 fL 81-99 [facility] Direct bilirubinOrdered By: CHARMAINE NAVAS on 03-06-2023 Bilirubin.direct [Mass/Vol] 0.16 mg/dL 0.00-0.30 [facility] Hematocrit Auto (Bld) [Volum e fraction]Ordered By: CHARMAINE NAVAS on 03-06-2023 Hematocrit (Bld) [Volume fraction] 40.4 % 37-47 [facility] Ketones Test strip Ql (U)Ord ered By: CHARMAINE NAVSA on 03-06-2023 Ketones Ql (U) Negative Negative [facility] Laboratory - Chemistry and C hemistry - challengeOrdered By: CHARMAINE NAVAS on 03-06-2023 ALP [Catalytic activity/Vol] 72 U/L 45-117 [facility] ALT [Catalytic activity/Vol] 23 U/L 13-56 [facility] Cholesterol.total/Choles terol in HDL [Mass ratio] 2.10 {ratio} [facility] CO2 [Moles/Vol] 30.0 mmol/L 21.0-32.0 [facility] Globulin (S) [Mass/Vol] 3.6 g/dL 2.2-4.2 [facility] Urea nitrogen/Creatinine [Mass ratio] 16.7 mg/mg 10-20 [facility] Laboratory - Hematology and Cell countsOrdered By: CHARMAINE NAVAS on 03-06-2023 Erythrocyte distribution width (RBC) [Entitic vol] 40.1 fL 35.1-43.9 [facility] Erythrocyte distribution width (RBC) [Ratio] 11.7 % 11.6-14.6 [facility] MCH (RBC) [Entitic mass] 31.3 pg 27.0-32.0 [facility] Nucleated RBC/100 WBC (Bld) [Ratio] 0 % 0-5 [facility] MCHC Auto (RBC) [Mass/Vol]Or dered By: CHARMAINE NAVAS on 03-06-2023 MCHC (RBC) [Mass/Vol] 33.4 g/dL 32-36 [facility] Nitrite Test strip Ql (U)Ord ered By: CHARMAINE NAVAS on 03-06-2023 Nitrite Ql (U) Negative Negative [facility] No Panel InformationOrdered By: CHARMAINE NAVAS on 03-06-2023 Estimated GFR (MDRD) Amer 86 mL/min >60 [facility] Comment on above: GFR Calc Estimated GFR (MDRD) Non-Af Amer 71 mL/min >60 [facility] Comment on above: Non- GFR Calc Platelets bldOrdered By: ISAMAR NAVAS on 03-06-2023 Platelets (Bld) [#/Vol] 380 10*3/uL 150-450 [facility] Protein Test strip Ql (U)Ord ered By: CHARMAINE NAVAS on 03-06-2023 Protein Ql (U) Negative Negative [facility] Segmented neutrophils/100 WB C Auto (Bld)Ordered By: CHARMAINE NAVAS on 03-06-2023 Segmented neutrophils/100 WBC (Bld) 64.5 % 47-70 [facility] Serum or plasma albumin gem urement (mass/volume)Ordered By: CHARMAINE NAVAS on 03-06-2023 Albumin [Mass/Vol] 3.9 g/dL 3.2-5.[address] [facility] Serum or plasma albumin/glob ulin mass ratioOrdered By: CHARMAINE NAVAS on 03-06-2023 Albumin/Globulin [Mass ratio] 1.1 {ratio} 0.9-2.4 [facility] Serum or plasma calcium gem urement (mass/volume)Ordered By: CHARMAINE NAVAS on 03-06-2023 Calcium [Mass/Vol] 8.8 mg/dL 8.5-10.[address] [facility] Serum or plasma cholesterol in HDL measurement (mass/volume)Ordered By: CHARMAINE NAVAS on 03-06-2023 Cholesterol in HDL [Mass/Vol] 74 mg/dL >40 [facility] Comment on above: The drugs N-Acetylcy steine and Metamizole may falsely depress this assay. Reference Range HDL <40 mg/dL Low HDL Cholesterol HDL >or= 60 mg/dL High HDL Cholesterol Serum or plasma cholesterol in VLDL measurement (mass/volume)Ordered By: CHARMAINE NAVAS on 03-06-2023 Cholesterol in VLDL [Mass/Vol] 8 mg/dL 5-40 [facility] Serum or plasma creatinine m easurement (mass/volume)Ordered By: CHARMAINE NAVAS on 03-06-2023 Creatinine [Mass/Vol] 0.90 mg/dL 0.55-1.02 [facility] Comment on above: The validity of the calculated GFR & GFRAA in patients over 70 years has not been determined. Clinical correlation is essential. Serum or plasma low density lipoprotein (LDL) cholesterol measurement (mass/volume)Ordered By: CHARMAINE NAVAS on 03-06-2023 Cholesterol in LDL [Mass/Vol] 77 mg/dL 0-130 [facility] Serum or plasma urea nitroge n measurement (mass/volume)Ordered By: CHARMAINE NAVAS on 03-06-2023 Urea nitrogen [Mass/Vol] 15 mg/dL 7-18 [facility] Serum or plasma uric acid me asurement (mass/volume)Ordered By: CHARMAINE NAVAS on 03-06-2023 Urate [Mass/Vol] 3.0 mg/dL 2.6-6.0 [facility] Comment on above: The drugs N-Acetylcy steine and Metamizole may falsely depress this assay. Thin prep Papanicolaou smear with manual screeningOrdered By: CHARMAINE NAVAS on 03-06-2023 Thin prep Papanicolaou smear with manual screening 22 U/L 15-37 [facility] Thin prep Papanicolaou smear with manual screening 1 5-15 [facility] Urine blood detectionOrdered By: CHARMAINE NAVAS on 03-06-2023 RBC Ql (U) Negative Negative [facility] Urine clarityOrdered By: ISAMAR NAVAS on 03-06-2023 Clarity (U) Clear Clear [facility] Urine color determinationOrd ered By: CHARMAINE NAVAS on 03-06-2023 Color (U) Yellow Yellow [facility] Urine glucose detectionOrder ed By: CHARMAINE NAVAS on 03-06-2023 Glucose Ql (U) Normal mg/dl Normal [facility] Urine leukocyte esterase det ection by dipstickOrdered By: CHARMAINE NAVAS on 03-06-2023 Leukocyte esterase Test strip Ql (U) Negative Negative [facility] Urine pHOrdered By: CHARMAINE CHEN on 03-06-2023 pH (U) 6.5 [pH] 5.0 - 8.0 [facility] Urine specific gravity measu rementOrdered By: CHARMAINE NAVAS on 03-06-2023 Specific gravity (U) [Rel density] 1.015 1.002-1.03 0 [facility] Urobilinogen Auto test strip Ql (U)Ordered By: CHARMAINE NAVAS on 03-06-2023 Urobilinogen Ql (U) Normal mg/dl Normal [facility] No Panel InformationOrdered By: Dr. Guzman on 08-05-2022 Anti-Cardiolipin IgM Antibody Not Reportable [facility] Serum [id number] m easurement (mass/volume)Ordered By: Martha Guzman on 08-05-2022 [id number] [Mass/Vol] See comment [facility] Comment on above: TEST RESULTS LIMITSB eta-2 Microglobulin, Serum 1.6 mg/L 0.6-2.4Siemens Immulite 2000 Immunochemiluminometric assay (ICMA)Values obtained with different assay methods or kits cannot be used interchangeably. Results cannot be interpreted as absolute evidence of the presence or absence of malignant disease. TESTING PERFORMED AT [facility]. ORIGINAL REPORT ON FILE IN LAB CONTAINS ADDITIONAL TEST SITE INFORMATION. Serum cardiolipin IgG antibo dy assay by immunoassay (units/volume)Ordered By: Dr. Guzman on 08-05-2022 Cardiolipin IgG IA Qn (S) See comment [facility] Comment on above: TEST RESULTS LIMITSA nticardiolipin Ab, IgG/M, QnAnticardiolipin Ab,IgG,Qn <9 GPL U/mL 0-14 Negative: <15 Indeterminate: 15 - 20 Low-Med Positive: >20 - 80 High Positive: >80Anticardiolipin Ab,IgM,Qn <9 MPL U/mL 0-12 Negative: <13 Indeterminate: 13 - 20 Low-Med Positive: >20 - 80 High Positive: >80 TESTING PERFORMED AT [facility]. ORIGINAL REPORT ON FILE IN LAB CONTAINS ADDITIONAL TEST SITE INFORMATION. Basophil percentageOrdered B y: Dr. Guzman on 08-01-2022 Basophil percentage See comment [facility] Comment on above: TEST RESULTS LIMITSS jogren's Ab, Anti-SS-A/-SS-BSjogren's Anti-SS-A 4.1 High AI 0.0-0.9Sjogren's Anti-SS-B <0.2 AI 0.0-0.9 TESTING PERFORMED AT [facility]. ORIGINAL REPORT ON FILE IN LAB CONTAINS ADDITIONAL TEST SITE INFORMATION. Basophil percentage Not Reportable [facility] Bilirubin Test strip Ql (U)O rdered By: Dr. Guzman on 08-01-2022 Bilirubin Ql (U) Negative Negative [facility] Dilute Marcos's viper venom timeOrdered By: Dr. Guzman on 08-01-2022 dRVVT Coag (PPP) [Time] 34.4 s 0.0-47.0 [facility] Ketones Test strip Ql (U)Ord ered By: Dr. Guzman on 08-01-2022 Ketones Ql (U) Negative Negative [facility] Nitrite Test strip Ql (U)Ord ered By: Dr. Guzman on 08-01-2022 Nitrite Ql (U) Negative Negative [facility] No Panel InformationOrdered By: Dr. Guzman on 08-01-2022 Miscellaneous Test See comment [facility] Comment on above: TEST RESULTS LIMITSd sDNA Crithidia luciliae IFAdsDNA Crithidia luciliae IFA Negative Negative [facility] ORIGINAL REPORT ON FILE IN LAB CONTAINS ADDITIONAL TEST SITE INFORMATION. TEST RESULTS LIMITSA nti-CCP Ab, IgG + IgA (RDL)Anti-CCP Ab, IgG + IgA (RDL) A, <20 Units <20 Negative: <20 Weak Positive: 20 - 39 Moderate Positive: 40 - 59 Strong Positive: >59CommentsA: This test was developed and its performance characteristics determined by [facility]. It has not been cleared or approved by the Food and DrugAdministration. TESTING PERFORMED AT [facility]. ORIGINAL REPORT ON FILE IN LAB CONTAINS ADDITIONAL TEST SITE INFORMATION. MANAGER MOBILE Antibody See comment [facility] Comment on above: TEST RESULTS LIMITSA ntiextractable Nuclear AgRNP Antibodies 0.2 AI 0.0-0.9Smith Antibodies <0.2 AI 0.0-0.9 [facility] ORIGINAL REPORT ON FILE IN LAB CONTAINS ADDITIONAL TEST SITE INFORMATION. Protein Test strip Ql (U)Ord ered By: Dr. Guzman on 08-01-2022 Protein Ql (U) Negative Negative [facility] Serum DNA double strand anti body assay (units/volume)Ordered By: Dr. Guzman on 08-01-2022 DNA double strand Ab Qn (S) See comment [facility] Comment on above: TEST RESULTS LIMITSA nti-DNA (DS) Ab Qn 3 IU/mL 0-9 Negative <5 Equivocal 5 - 9 Positive >9 TESTING PERFORMED AT [facility]. ORIGINAL REPORT ON FILE IN LAB CONTAINS ADDITIONAL TEST SITE INFORMATION. Serum Scl-70 extractable nuc lear antibody assay (units/volume)Ordered By: Dr. Guzman on 08-01-2022 SCL-70 extractable nuclear Ab Qn (S) See comment [facility] Comment on above: TEST RESULTS LIMITSA ntiscleroderma-70Antibodies <0.2 AI 0.0-0.9 TESTING PERFORMED AT [facility]. ORIGINAL REPORT ON FILE IN LAB CONTAINS ADDITIONAL TEST SITE INFORMATION. Serum Le extractable nucl ear antibody detectionOrdered By: Dr. Guzman on 08-01-2022 Le extractable nuclear Ab Ql (S) Not Reportable [facility] Serum nuclear antibody titer by immunofluorescenceOrdered By: Dr. Guzman on 08-01-2022 Nuclear Ab IF (S) [Titer] See comment [facility] Comment on above: TEST RESULTS LIMITS Antinuclear Antibodies IFA Positive Abnormal Negative Negative < 1:80 Borderline 1:80 Positive > 1:80Homogeneous Pattern 1:160 High ICAP nomenclature: [id number] more information about Hep-2 cell patterns useG.I. Windows.Grocio, the official website for the InternationalConsensus on Antinuclear Antibody (NINI) Patterns (ICAP). Note: A positive NINI result may occur in healthy individualsor be associated with a variety of diseases. Seeinterpretation below:Pattern Antigen Detected Suggested Disease Association Homogenous DNA(ds,ss,n), High titers - SLE (Smooth) Histone Speckled Sm,MANAGER MOBILE,SCL-70, SLE,MCTD, Scleroderma, SS-A/SS-B Sjogrens Nucleolar SCL-70,PM-1/SCL High titers Scleroderma Polymyositis/scleroderma over- lap Centromere Centromere PSS w/Crest syndrome variable Nuclear SP100 Primary Biliary CirrhosisDot [id number] Nuclear GP210, Primary Biliary CirrhosisMembrane TESTING PERFORMED AT [facility]. ORIGINAL REPORT ON FILE IN LAB CONTAINS ADDITIONAL TEST SITE INFORMATION. Serum or plasma complement C 3 measurement (mass/volume)Ordered By: Dr. Guzman on 08-01-2022 Complement C3 [Mass/Vol] 110 mg/dL 82-167 [facility] Serum or plasma complement C 4 measurement (mass/volume)Ordered By: Dr. Guzman on 08-01-2022 Complement C4 [Mass/Vol] 21 mg/dL 12-38 [facility] Serum or plasma thyroperoxid ase antibody assay (units/volume)Ordered By: Dr. Guzman on 08-01-2022 TPO Ab Qn [IU]/mL 0-34 [facility] Comment on above: Performed at: [address] [id number] Director: Ej Landers PhD, Phone: [phone] Serum rheumatoid factor dete ctionOrdered By: Dr. Guzman on 08-01-2022 Rheumatoid factor Ql (S) < 10.0 IU/mL <15 [facility] Thin prep Papanicolaou smear with manual screeningOrdered By: Dr. Guzman on 08-01-2022 Thin prep Papanicolaou smear with manual screening 36.1 sec 0.0-47.6 [facility] Thin prep Papanicolaou smear with manual screening 1.08 Ratio 0.00-1.34 [facility] Thin prep Papanicolaou smear with manual screening 37.6 sec 0.0-43.5 [facility] Thin prep Papanicolaou smear with manual screening Comment: . [facility] Comment on above: No lupus anticoagula nt was detected. Thrombin time in platelet po or plasmaOrdered By: Dr. Guzman on 08-01-2022 Thrombin time Coag (PPP) [Time] 18.4 sec 0.0-23.0 [facility] Urine blood detectionOrdered By: Dr. Guzman on 08-01-2022 RBC Ql (U) Negative Negative [facility] Urine clarityOrdered By: Dr. Guzman on 08-01-2022 Clarity (U) Clear Clear [facility] Urine color determinationOrd ered By: Dr. Guzman on 08-01-2022 Color (U) Yellow Yellow [facility] Urine glucose detectionOrder ed By: Dr. Guzman on 08-01-2022 Glucose Ql (U) Normal mg/dl Normal [facility] Urine leukocyte esterase det ection by dipstickOrdered By: Dr. Guzman on 08-01-2022 Leukocyte esterase Test strip Ql (U) 25 /ul Negative [facility] Urine pHOrdered By: Dr. Giacomo hoffman on 08-01-2022 pH (U) 5.0 [pH] 5.0 - 8.0 [facility] Urine specific gravity measu rementOrdered By: Dr. Guzman on 08-01-2022 Specific gravity (U) [Rel density] 1.020 1.002-1.03 0 [facility] Urobilinogen Auto test strip Ql (U)Ordered By: Dr. Guzman on 08-01-2022 Urobilinogen Ql (U) Normal mg/dl Normal [facility] No Panel InformationOrdered By: Cris Shafer on 07-29-2022 Stool Calprotectin 60 ug/g 0-[address] [facility] Comment on above: Concentration Interp retation Follow-Up<16 - 50 ug/g Normal None>50 -120 ug/g Borderline Re-evaluate in 4-6 weeks >120 ug/g Abnormal Repeat as clinically indicatedPerformed at: - [facility] [id number] Director: Lopez Wells MD, Phone: [phone] Stool lactoferrin detection by immunoassayOrdered By: Cris Shafer on 07-29-2022 Lactoferrin IA Ql (Stl) [facility] Lactoferrin IA Ql (Stl) [facility] Absolute lymphocyte countOrd ered By: Cris Shafer on 07-27-2022 Lymphocytes Auto (Unsp spec) [#/Vol] 0.82 10*3/uL 0.83-4.51 [facility] Basophil percentageOrdered B y: Cris Shafer on 07-27-2022 Basophils/100 WBC (Bld) 0.6 % 0-1 [facility] Bilirubin [Mass/Vol] 1.00 mg/dL 0.20-1.00 [facility] Comment on above: For patients on eltr ombopag therapy, use of Dimension Caspian TBIL is not recommended. Chloride [Moles/Vol] 107 mmol/L 98-107 [facility] Eosinophils/100 WBC (Bld) 0.8 % 0-5 [facility] Glucose [Mass/Vol] 73 mg/dL 74-[address] [facility] Neutrophils (Bld) [#/Vol] 3.6 10*3/uL 2.0-7.7 [facility] Neutrophils/100 WBC (Bld) 71.1 % 47-70 [facility] Potassium [Moles/Vol] 3.8 mmol/L 3.5-5.1 [facility] Protein [Mass/Vol] 7.6 g/dL 6.4-8.[address] [facility] Sodium [Moles/Vol] 138 mmol/L 136-[address] [facility] WBC (Bld) [#/Vol] 5.1 10*3/uL 4.4-11.[address] [facility] Blood erythrocytes count (nu mber/volume)Ordered By: Cris Shafer on 07-27-2022 RBC (Bld) [#/Vol] 4.39 10*6/uL 4.2-5.4 [facility] Blood hemoglobin measurement (mass/volume)Ordered By: Cris Shafer on 07-27-2022 Hemoglobin (Bld) [Mass/Vol] 14.0 g/dL 12.0-15.0 [facility] Blood lymphocytes/100 leukoc ytesOrdered By: Cris Shafer on 07-27-2022 Lymphocytes/100 WBC (Bld) 16.1 % 19-41 [facility] Blood monocytes/100 leukocyt esOrdered By: Cris Shafer on 07-27-2022 Monocytes/100 WBC (Bld) 11.2 % 0-10 [facility] Blood platelet mean volumeOr dered By: Cris Shafer on 07-27-2022 Platelet mean volume (Bld) [Entitic vol] 10.2 fL 6.2-12.0 [facility] Determination of erythrocyte mean corpuscular volume (MCV)Ordered By: Cris Shafer on 07-27-2022 MCV (RBC) [Entitic vol] 93.6 fL 81-99 [facility] Erythrocyte sedimentation ra teOrdered By: Cris Shafer on 07-27-2022 ESR (Bld) [Velocity] 4 mm/h 0-30 [facility] Hematocrit Auto (Bld) [Volum e fraction]Ordered By: Cris Shafer on 07-27-2022 Hematocrit (Bld) [Volume fraction] 41.1 % 37-47 [facility] - Chemistry and C hemistry - challengeOrdered By: Cris Shafer on 07-27-2022 ALP [Catalytic activity/Vol] 79 U/L 45-117 [facility] ALT [Catalytic activity/Vol] 25 U/L 13-56 [facility] CO2 [Moles/Vol] 25.0 mmol/L 21.0-32.0 [facility] Globulin (S) [Mass/Vol] 3.6 g/dL 2.2-4.2 [facility] Urea nitrogen/Creatinine [Mass ratio] 22.5 mg/mg 10-20 [facility] - Hematology and Cell countsOrdered By: Cris Shafer on 07-27-2022 Erythrocyte distribution width (RBC) [Entitic vol] 40.4 fL 35.1-43.9 [facility] Erythrocyte distribution width (RBC) [Ratio] 11.8 % 11.6-14.6 [facility] Immature granulocytes/100 WBC (Bld) 0.200 % 0.0-0.9 [facility] Comment on above: IG% - Immature Granu locytes (promyelocytes, myelocytes and metamyelocytes) > 1% indicates that a LEFT SHIFT is Present. MCH (RBC) [Entitic mass] 31.9 pg 27.0-32.0 [facility] Nucleated RBC/100 WBC (Bld) [Ratio] 0 % 0-5 [facility] MCHC Auto (RBC) [Mass/Vol]Or dered By: Cris Shafer on 07-27-2022 MCHC (RBC) [Mass/Vol] 34.1 g/dL 32-36 [facility] No Panel InformationOrdered By: Cris Shafer on 07-27-2022 Endomysial IgA Antibody Negative Negative [facility] Estimated GFR (MDRD) Amer 82 mL/min >60 [facility] Comment on above: GFR Calc Estimated GFR (MDRD) Non-Af Amer 68 mL/min >60 [facility] Comment on above: Non- GFR Calc Immunoglobulin E 18 IU/mL 6-495 [facility] Comment on above: Performed at: [facility] [address] [id number] Director: Ej Landers PhD, Phone: [phone] at: [facility] [id number] Director: Lopez Wells MD, Phone: [phone] Miscellaneous Test See comment [facility] Comment on above: TEST RESULT LIMITSIB D Expanded Panel Ginette 30 units 0-50 Negative <45 Equivocal 45 - 50 Positive >50 ACCA 17 units 0-90 Negative <80 Equivocal 80 - 90 Positive >90 ALCA 14 units 0-60 Negative <55 Equivocal 55 - 60 Positive >60 AMCA 28 units 0-100 Negative < 90 Equivocal 90 - 100 Positive >100 This test was developed and its performance characteristics determined by [facility]. It has not been cleared or approved by the Food and Drug Administration. The FDA has determined that such clearance or approval is not necessary.Atypical pANCA Negative Negative Comments Pattern is not suggestive of Inflammatory Bowel Disease ___ [facility]. ORIGINAL REPORT ON FILE IN LAB CONTAINS ADDITIONAL TEST SITE INFORMATION. Platelets bldOrdered By: Krystal Shafer on 07-27-2022 Platelets (Bld) [#/Vol] 340 10*3/uL 150-450 [facility] Serum or plasma C reactive p rotein measurement (mass/volume)Ordered By: Cris Shafer on 07-27-2022 CRP [Mass/Vol] mg/L 0.0-3.0 [facility] Comment on above: C-Reactive Protein ( CRP) provides useful information for thediagnosis, therapy and monitoring of inflammatory processesand associated diseases. For the evaluation of Relative Riskfor Cardiovascular Disease, a High Sensitivity CRP (HSCRP)should be ordered. Serum or plasma IgA measurem ent (mass/volume)Ordered By: Cris Shafer on 07-27-2022 IgA [Mass/Vol] 216 mg/dL 87-352 [facility] Serum or plasma IgG measurem ent (mass/volume)Ordered By: Cris Shafer on 07-27-2022 IgG [Mass/Vol] 1311 mg/dL [phone] [facility] Serum or plasma IgM measurem ent (mass/volume)Ordered By: Cris Shafer on 07-27-2022 IgM [Mass/Vol] 87 mg/dL 26-217 [facility] Serum or plasma albumin gem urement (mass/volume)Ordered By: Cris Shafer on 07-27-2022 Albumin [Mass/Vol] 4.0 g/dL 3.2-5.[address] [facility] Serum or plasma albumin/glob ulin mass ratioOrdered By: Cris Shafer on 07-27-2022 Albumin/Globulin [Mass ratio] 1.1 {ratio} 0.9-2.4 [facility] Serum or plasma calcium gem urement (mass/volume)Ordered By: Cris Shafer on 07-27-2022 Calcium [Mass/Vol] 9.2 mg/dL 8.5-10.[address] [facility] Serum or plasma creatinine m easurement (mass/volume)Ordered By: Cris Shafer on 07-27-2022 Creatinine [Mass/Vol] 0.93 mg/dL 0.55-1.02 [facility] Comment on above: The validity of the calculated GFR & GFRAA in patients over 70 years has not been determined. Clinical correlation is essential. Serum or plasma urea nitroge n measurement (mass/volume)Ordered By: Cris Shafer on 07-27-2022 Urea nitrogen [Mass/Vol] 21 mg/dL 7-18 [facility] Serum tissue transglutaminas e IgA antibody assay (units/volume)Ordered By: Cris Shafer on 07-27-2022 tTG IgA Qn (S) <2 U/mL 0-3 [facility] Comment on above: Negative 0 - 3 Weak Positive 4 - 10 Positive >10 Tissue Transglutaminase (tTG) has been identified as the endomysial antigen. Studies have demonstr- ated that endomysial IgA antibodies have over 99% specificity for gluten sensitive enteropathy. Thin prep Papanicolaou smear with manual screeningOrdered By: Cris Shafer on 07-27-2022 Thin prep Papanicolaou smear with manual screening 17 U/L 15-37 [facility] Thin prep Papanicolaou smear with manual screening 6 5-15 [facility] Cervical or vagninal specime n microscopic examination by cytology stain (reported asOrdered By: Dr. Sandoval on 07-16-2022 Cytology report Cyto stain Doc (Cvx/Vag) Comment . [facility] Comment on above: The Pap smear is a s creening test designed to aid in thedetection of premalignant and malignant conditions of theuterine cervix. It is not a diagnostic procedure andshould not be used as the sole means of detecting cervicalcancer. Both false-positive and false-negative reports dooccur. Detection in cervical specim en of any of human papilloma virus (HPV) 16, 18, 31, 33,Ordered By: Dr. Sandoval on 07-16-2022 HPV 16+18+31+33+35+39+45+51+ 52+56+58+59+66+68 DNA Probe+sig amp Ql (Cvx) Negative Negative [facility] Comment on above: This nucleic acid am plification test detects fourteen high-risk HPV types (16,18,31,33,35,39,45,51,52,56,58,59,66,68)without differentiation. Laboratory - CytologyOrdered By: Dr. Sandoval on 07-16-2022 Nonprofit Financial Controller Cyto stain Nom (Cvx/Vag) [ID] Comment . [facility] Comment on above: [place], Cytot echnologist (ASCP) Laboratory - Miscellaneous t estsOrdered By: Dr. Sandoval on 07-16-2022 Service comment (Unsp spec) [Interp] Comment . [facility] Comment on above: This liquid based Th inPrep(R) pap test was screened withthe use of an image guided system. Service comment (Unsp spec) [Interp] . . [facility] Liquid-based cerv Pap + CT/G C by CINTHIA w reflex to high-risk HPV for ASCUSOrdered By: Dr. Sandoval on 07-16-2022 Cytology report Cyto stain.thin prep Doc (Cvx/Vag) Comment . [facility] Comment on above: Criteria not met, HP V Genotype not performed.Performed at: - [address] [id number] Director: Lexii Rojas MD, Phone: [phone] at: =[address] [id number] Director: Lexii Rojas MD, Phone: [phone] No Panel InformationOrdered By: Dr. Sandoval on 07-16-2022 Pathology report final diagnosis Narrative Comment . [facility] Comment on above: NEGATIVE FOR INTRAEP ITHELIAL LESION OR MALIGNANCY. No Panel InformationOrdered By: Dr. Sandoval on 07-10-2022 Follicle Stimulating Hormone 31.7 mIU/mL [facility] Comment on above: NORMAL REFERENCE RAN GES FEMALE FOLLICULAR 2.3 - 12.6 mIU/mL MID-CYCLE PEAK 5.2 - 17.5 mIU/mL LUTEAL 1.7 - 12.9 mIU/mL POST-MENOPAUSAL ON MHT 5.9 - 72.8 mIU/mL NOT ON MHT 12.7 - 132.2 mlU/mL MALE 0.7 - 10.8 mIU/mL Luteinizing Hormone 30.7 mIU/mL [facility] Comment on above: NORMAL REFERENCE RAN GES FEMALE FOLLICULAR 1.9 - 26.2 mIU/mL MID-CYCLE PEAK 22.8 - 76.1 mIU/mL LUTEAL 0.6 - 16.6 mIU/mL POST-MENOPAUSAL ON MHT 1.1 - 52.4 mIU/mL NOT ON MHT 8.6 - 61.8 mIU/mL MALE 1.2 - 10.6 mIU/mL Serum or plasma estradiol (E 2) measurement (mass/volume)Ordered By: Dr. Sandoval on 07-10-2022 E2 [Mass/Vol] 113.2 pg/mL [facility] Comment on above: NORMAL REFERENCE RAN GES FEMALE FOLLICULAR 21.4 - 164.8 pg/mL MID-CYCLE PEAK 49.9 - 367.2 pg/mL LUTEAL 40.2 - 259.0 pg/mL POST-MENOPAUSAL ON MHT <11.0 - 462.1 pg/mL NOT ON MHT <11.0 - 58.3 pg/mL MALE <11.0 - 52.5 pg/mL NOTE:[employer] HAS CONFIRMED THE DRUG FULVETRANT (FASLODEX) MAY CAUSE FALSELY ELEVATED ESTRADIOL RESULTS WHEN USING THIS TEST METHOD. IF PATIENT IS TAKING FULVESTRANT AN ALTERNATIVE METHOD SHOULD BE USED TO DETERMINE ESTRADIOL CONCENTRATION. Serum or plasma progesterone measurement (mass/volume)Ordered By: Dr. Sandoval on 07-10-2022 Progesterone [Mass/Vol] 0.63 ng/mL See Comment [facility] Comment on above: Progesterone Referen ce Table: UNITS Female: Follicular 0.15 - 1.40 ng/mL Luteal 3.34 - 25.56 ng/mL Mid-luteal 4.44 - 28.03 ng/mL Postmenopausal 0.0 - 0.73 ng/mL : 1st Trimester 11.22 - 90.00 ng/mL 2nd Trimester 25.55 - 89.40 ng/mL 3rd Trimester 48.40 -422.50 ng/mL Chen 08-22-2021 JIHAN Telephone ([employer]) ----- PRAFUL KAHN ([id number]) 1975 F Date Time Provider Department 08/22/21 DEMETRIO HANCOCK During your visit today, we recorded the following information about you: Tristan Araujo RN 08/22/2021 9:[address] Hancock is requesting Praful is scheduled for a breast MRI at [facility]. Faxed order to [facility] and left voicemail for Praful giving her the phone number to call and schedule the MRI or if she would like us to schedule to please let us know. CHERYL Knight RN 09/09/2021 9:23 AM Signed [facility] for [facility] and it does not look like Praful ever scheduled her appointment. Left voicemail ([phone]) for Praful to please let us know if she ever scheduled the exam. CHERYL Knight RN 09/09/2021 1:02 PM Signed Praful called back. She advised that she was waiting on approval from her insurance company, before [facility] would let her schedule the MRI. She states that she has been on vacation in [place], where she did not have cell service and should be home today. She will check with the hospital tomorrow. CHERYL Knight RN 09/10/2021 2:56 PM Signed Good Afternoon, You entered a referral for to have a MRI at [facility]. I need some additional information to complete the authorization- is the MRI Unilateral or Bilateral, and is it WO, W, or WWO Contrast? Thank you, Kellie Hopkins, Per Dr. Hancock, it is bilateral breast with contrast. CHERYL Knight RN 09/15/2021 8:24 AM Signed Approval for MRI of bilateral breast with contrast from [facility]. Left voicemail for patient that approval has been received, so she may schedule the exam. Faxed order and approval to [facility] scheduling department. Fax confirmation sheet received. Tristan Araujo RN Allergies As of Date: 08/22/2021 Noted Allergy Reaction MORPHINE 05/20/2008 4 - Hives Date Reviewed: 06/24/2021 Reviewed by: Estephania Carvalho LPN - Fully Assessed Reason for Visit: Appointment [186] Cmt: Schedule MRI of breast at [facility] Prescriptions as of 09/15/2021 - ocrelizumab (OCREVUS INTRAVENOUS) Twice yearly - nortriptyline (PAMELOR) 10 mg capsule Take 10 mg by mouth once daily. - RHODA 0.35 mg tablet Take 1 tablet by mouth once daily. - VIT B COMPLEX 100 COMBO NO.2 ORAL Take by mouth once daily. - ergocalciferol 50,000 unit capsule (VITAMIN D2, DRISDOL) Take 50,000 Units by mouth one time a week. - escitalopram oxalate(LEXAPRO 10 MG TAB) Take one(1) tablet daily. - iron polysaccharides complex(POLY-IRON 150 MG CAP) Take one(1) tablet daily. - acetaminophen(TYLENOL 325 MG TAB) Take two(2) tablets every four(4) to six(6) hours as needed for fever. - interferon beta-1a/albumin(REBIF 44 MCG/0.5 ML SUB-Q SYRINGE) three times weekly - HYDROXYCHLOROQUINE 200 MG TAB Take as directed. - COMPOUNDED PRESCRIPTION cholchesine 06.mg MWF - alendronate sodium(FOSAMAX 70 MG TAB) biweekly - cyclosporine(RESTASIS 0.05 % EYE DROPPERETTE) 1 drop each eye twice daily - PREDNISONE 1 MG TAB Take one(1) tablet daily. up to 3 times daily - COMPOUNDED PRESCRIPTION quinacrine 100 mg three times weekly - multivitamins w-minerals/lut(CENTRUM SILVER TAB) Take one(1) tablet daily. - CALCIUM CARBONATE 1,000 MG CHEWABLE TAB Take one(1) tablet daily. Problem List As Of Date 08/22/2021 Noted Resolved Abdominal Pain, Unspecified Site [R10.9] 06/01/2009 Encounter Status:Closed by TRISTAN ARAUJO on 08/29/21 [facility] 08-01-20[facility] ----- PRAFUL KAHN ([id number]) 1975 F Date Time Provider Department 08/01/21 DEMETRIO HANCOCK During your visit today, we recorded the following information about you: Mariam Flynn Pss 08/01/2021 12:22 PM Signed Referring office calling for office notes from date of service on 06/[address] Enid Morrissey Office. As I can not tell for sure if patient was seen or not. Estephania Carvalho LPN 08/01/2021 2:56 PM Signed Patient was not seen in General Surgery, appointment was cancelled. Allergies As of Date: 08/01/2021 Noted Allergy Reaction MORPHINE 05/20/2008 4 - Hives Date Reviewed: 06/24/2021 Reviewed by: Estephania Carvalho LPN - Fully Assessed Reason for Visit: Release Of Medical Records [2017] Prescriptions as of 09/12/2021 - ocrelizumab (OCREVUS INTRAVENOUS) Twice yearly - nortriptyline (PAMELOR) 10 mg capsule Take 10 mg by mouth once daily. - RHODA 0.35 mg tablet Take 1 tablet by mouth once daily. - VIT B COMPLEX 100 COMBO NO.2 ORAL Take by mouth once daily. - ergocalciferol 50,000 unit capsule (VITAMIN D2, DRISDOL) Take 50,000 Units by mouth one time a week. - escitalopram oxalate(LEXAPRO 10 MG TAB) Take one(1) tablet daily. - iron polysaccharides complex(POLY-IRON 150 MG CAP) Take one(1) tablet daily. - acetaminophen(TYLENOL 325 MG TAB) Take two(2) tablets every four(4) to six(6) hours as needed for fever. - interferon beta-1a/albumin(REBIF 44 MCG/0.5 ML SUB-Q SYRINGE) three times weekly - HYDROXYCHLOROQUINE 200 MG TAB Take as directed. - COMPOUNDED PRESCRIPTION cholchesine 06.mg MWF - alendronate sodium(FOSAMAX 70 MG TAB) biweekly - cyclosporine(RESTASIS 0.05 % EYE DROPPERETTE) 1 drop each eye twice daily - PREDNISONE 1 MG TAB Take one(1) tablet daily. up to 3 times daily - COMPOUNDED PRESCRIPTION quinacrine 100 mg three times weekly - multivitamins w-minerals/lut(CENTRUM SILVER TAB) Take one(1) tablet daily. - CALCIUM CARBONATE 1,000 MG CHEWABLE TAB Take one(1) tablet daily. Problem List As Of Date 08/01/2021 Noted Resolved Abdominal Pain, Unspecified Site [R10.9] 06/01/2009 Encounter Status:Closed by MARIAM MURCIA on 09/12/21 [facility] 06-24-2021 [facility] Office Visit (GABRIELLE ) ----- PRAFUL KAHN ([id number]) 1975 F Date Time Provider Department 06/24/21 3:40 PM DEMETRIO HANCOCK During your visit today, we recorded the following information about you: Temperature Pulse Blood pressure Weight 98.2 degrees 103/minute 112/68 62.6 kg Height 1.575 m Estephania Carvalho LPN 06/24/2021 3:39 PM Signed [...] last Mammogram screening? 2021 Last Colonoscopy: none KAREN Barriga III, MD 08/22/2021 9:49 AM Signed HISTORY AND PHYSICAL - BREAST COMPLAINT Praful [...] MG TAB Take as directed. 0 - c (more content not included)... Normal [facility] Absolute lymphocyte counton 06-13-2021 Lymphocytes Auto (Unsp spec) [#/Vol] 0.81 10*3/uL 0.83-4.51 [facility] Work Phone: Basophil percentageon 2021 Basophil percentage 0 SEEN /hpf 0-5 [facility] Work [facility]: Basophil percentage 5.5 AI 0.0-0.9 [facility] Work Phone: Basophil percentage < 0.2 AI 0.0-0.9 [facility] Work Phone: Basophils/100 WBC (Bld) 0.8 % 0-1 [facility] Work Phone: Eosinophils/100 WBC (Bld) 0.8 % 0-5 [facility] Work Phone: Neutrophils (Bld) [#/Vol] 3.2 10*3/uL 2.0-7.7 [facility] Work Phone: Neutrophils/100 WBC (Bld) 66.4 % 47-70 [facility] Work Phone: WBC (Bld) [#/Vol] 4.8 10*3/uL 4.4-11.[address] [facility] Work Phone: Bilirubin Test strip Ql (U)o n 06-13-2021 Bilirubin Ql (U) Negative Negative [facility] Work Phone: Blood erythrocytes count (nu mber/volume)on 06-13-2021 RBC (Bld) [#/Vol] 4.17 10*6/uL 4.2-5.4 [facility] Work Phone: Blood hemoglobin measurement (mass/volume)on 06-13-2021 Hemoglobin (Bld) [Mass/Vol] 13.7 g/dL 12.0-15.0 [facility] Work Phone: Blood lymphocytes/100 leukoc yteson 06-13-2021 Lymphocytes/100 WBC (Bld) 16.8 % 19-41 [facility] Work Phone: Blood monocytes/100 leukocyt eson 06-13-2021 Monocytes/100 WBC (Bld) 14.8 % 0-10 [facility] Work Phone: Blood platelet mean volumeon 06-13-2021 Platelet mean volume (Bld) [Entitic vol] 10.1 fL 6.2-12.0 [facility] Work Phone: Determination of erythrocyte mean corpuscular volume (MCV)on 03-18-2022 MCV (RBC) [Entitic vol] 92.6 fL 81-99 [facility] Work Phone: Hematocrit Auto (Bld) [Volum e fraction]on 06-13-2021 Hematocrit (Bld) [Volume fraction] 38.6 % 37-47 [facility] Work Phone: Ketones Test strip Ql (U)on 06-13-2021 Ketones Ql (U) Negative Negative [facility] Work Phone: Laboratory - Chemistry and C hemistry - challengeon 06-13-2021 ALT [Catalytic activity/Vol] 25 U/L 13-56 [facility] Work Phone: Laboratory - Hematology and Cell countson 06-13-2021 Erythrocyte distribution width (RBC) [Entitic vol] 41.3 fL 35.1-43.9 [facility] Work Phone: Erythrocyte distribution width (RBC) [Ratio] 12.2 % 11.6-14.6 [facility] Work Phone: Immature granulocytes/100 WBC (Bld) 0.400 % 0.0-0.9 [facility] Work Phone: Comment on above: IG% - Immature Granu locytes (promyelocytes, myelocytes and metamyelocytes) > 1% indicates that a LEFT SHIFT is Present. MCH (RBC) [Entitic mass] 32.9 pg 27.0-32.0 [facility] Work Phone: Nucleated RBC/100 WBC (Bld) [Ratio] 0 % 0-5 [facility] Work Phone: MCHC Auto (RBC) [Mass/Vol]on 06-13-2021 MCHC (RBC) [Mass/Vol] 35.5 g/dL 32-36 [facility] Work Phone: Mucus LM Ql (Urine sed)on Mucus Ql (Urine sed) 0 SEEN /hpf [facility] Work Phone: Nitrite Test strip Ql (U)on 06-13-2021 Nitrite Ql (U) Negative Negative [facility] Work Phone: No Panel Informationon 06-13 Anti-Nuclear Antibody Screen Positive Negative [facility] Work Phone: Comment on above: Performed at: [address] [id number] Director: Ej Landers PhD, Phone: [phone] Estimated GFR (MDRD) Amer 87 mL/min >60 [facility] Work Phone: Comment on above: GFR Calc Estimated GFR (MDRD) Non-Af Amer 72 mL/min >60 [facility] Work Phone: Comment on above: Non- GFR Calc Miscellaneous Test See comment [facility] Work Phone: Comment on above: TEST RESULT LIMITSSt riated Ab IgG w/rfx titer Striated Muscle Ab, IgG Screen <1:40 <1:40Striated Muscle Antibodies, IgG are not detected. No furthertesting will be performed.INTERPRETIVE DATA: Striated Muscle Antibodies, IgG ScreenIn the presence of acetylcholine receptor (AChR) antibody,striated muscle antibodies, which bind in a cross-striational pattern to skeletal and heart muscle tissue sections, are associated with late-onset myasthenia gravis (MG). Striated muscle antibodies recognize epitopes on three major muscle proteins, including: titin, ryanodine receptor (RyR) and Kv1.4 (an alpha subunit of voltage-gated potassium channel [VGKC]). Isolated cases of striated muscle antibodies may be seen in patients with certainautoimmune diseases, rheumatic fever, myocardial infarction, and following some cardiotomy procedures.This test was developed and its performance characteristicsdetermined by [employer]. It has not been cleared orapproved by the [place] Food and Drug Administration. This test was performed in a CLIA certified laboratory and is intended for clinical purposes. TESTING PERFORMED AT [facility]. ORIGINAL REPORT ON FILE IN LAB CONTAINS ADDITIONAL TEST SITE INFORMATION. MANAGER MOBILE Antibody 0.2 AI 0.0-0.9 [facility] Work Phone: Platelets bldon 06-13-2021 Platelets (Bld) [#/Vol] 330 10*3/uL 150-450 [facility] Work Phone: [phone] Protein Test strip Ql (U)on 06-13-2021 Protein Ql (U) Negative Negative [facility] Work Phone: Serum DNA double strand anti body assay (units/volume)on 06-13-2021 DNA double strand Ab Qn (S) 3 [IU]/mL 0-9 [facility] Work Phone: Comment on above: Negative <5 Equivoca l 5 - 9 Positive >9 Serum Scl-70 extractable nuc lear antibody assay (units/volume)on 06-13-2021 SCL-70 extractable nuclear Ab Qn (S) <0.2 AI 0.0-0.9 [facility] Work Phone: Serum Le extractable nucl ear antibody detectionon 06-13-2021 Le extractable nuclear Ab Ql (S) <0.2 AI 0.0-0.9 [facility] Work Phone: Serum cyclic citrullinated p eptide IgG antibody assay (units/volume)on 06-13-2021 Cyclic citrullinated peptide IgG Qn 7 units 0-19 [facility] Work Phone: Comment on above: Negative <20 Weak po sitive 20 - 39 Moderate positive 40 - 59 Strong positive >59 Serum mitochondria antibody detectionon 06-13-2021 Mitochondria Ab Ql (S) <20.0 Units 0.0-20.0 [facility] Work Phone: Comment on above: Negative 0.0 - 20.0 Equivocal 20.1 - 24.9 Positive >24.9Mitochondrial (M2) Antibodies are found in 90-96% ofpatients with primary biliary cirrhosis. Serum or plasma C reactive p rotein measurement (mass/volume)on 06-13-2021 CRP [Mass/Vol] mg/L 0.0-3.0 [facility] Work Phone: Comment on above: C-Reactive Protein ( CRP) provides useful information for thediagnosis, therapy and monitoring of inflammatory processesand associated diseases. For the evaluation of Relative Riskfor Cardiovascular Disease, a High Sensitivity CRP (HSCRP)should be ordered. Serum or plasma actin IgG an tibody assay (units/volume)on 06-13-2021 Actin IgG Qn 7 Units 0-19 [facility] Work Phone: Comment on above: Negative 0 - 19 Weak positive 20 - 30 Moderate to strong positive >30 Actin Antibodies are found in 52-85% of patients with autoimmune hepatitis or chronic active hepatitis and in 22% of patients with primary biliary cirrhosis. Serum or plasma albumin gem urement (mass/volume)on 06-13-2021 Albumin [Mass/Vol] 4.1 g/dL 3.2-5.[address] [facility] Work Phone: Serum or plasma complement C 3 measurement (mass/volume)on 06-13-2021 Complement C3 [Mass/Vol] 100 mg/dL 82-167 [facility] Work Phone: Serum or plasma complement C 4 measurement (mass/volume)on 06-13-2021 Complement C4 [Mass/Vol] 18 mg/dL 12-38 [facility] Work Phone: Serum or plasma creatinine m easurement (mass/volume)on 06-13-2021 Creatinine [Mass/Vol] 0.89 mg/dL 0.55-1.02 [facility] Work Phone: Comment on above: The validity of the calculated GFR & GFRAA in patients over 70 years has not been determined. Clinical correlation is essential. Serum or plasma thyroperoxid ase antibody assay (units/volume)on 06-13-2021 TPO Ab Qn [IU]/mL 0-34 [facility] Work Phone: Comment on above: Performed at: [address], [place] [id number] Director: Ej Landers PhD, Phone: [phone] at: [address] [id number] Director: Lopez Wells MD, Phone: [phone] Serum or plasma urea nitroge n measurement (mass/volume)on 06-13-2021 Urea nitrogen [Mass/Vol] 14 mg/dL 7-18 [facility] Work Phone: Serum parietal cell antibody assay (units/volume)on 06-13-2021 Parietal cell Ab Qn (S) 12.1 Units 0.0-20.0 [facility] Work Phone: Comment on above: Negative 0.0 - 20.0 Equivocal 20.1 - 24.9 Positive >24.9Parietal Cell Antibodies are found in 90% of patientswith pernicious anemia and 30% of first degreerelatives with pernicious anemia. Serum rheumatoid factor dete ctionon 06-13-2021 Rheumatoid factor Ql (S) < 10.0 IU/mL <15 [facility] Work Phone: Squamous epithelial cells de tection in urine sediment by light microscopyon 06-13-2021 Epithelial cells.squamous LM Ql (Urine sed) 0 SEEN /hpf 5-10 [facility] Work Phone: Thin prep Papanicolaou smear with manual screeningon 06-13-2021 Thin prep Papanicolaou smear with manual screening 22 U/L 15-37 [facility] Work Phone: Urine blood detectionon 05-27 RBC Ql (U) Negative Negative [facility] Work Phone: RBC Ql (U) 0 SEEN /hpf 0-5 [facility] Work Phone: Urine clarityon 06-13-2021 Clarity (U) Clear Clear [facility] Work Phone: Urine color determinationon 06-13-2021 Color (U) Yellow Yellow [facility] Work Phone: Urine glucose detectionon Glucose Ql (U) Normal mg/dl Normal [facility] Work Phone: Urine leukocyte esterase det ection by dipstickon 06-13-2021 Leukocyte esterase Test strip Ql (U) 25 /ul Negative [facility] Work Phone: Urine pHon 06-13-2021 pH (U) 6.0 [pH] 5.0 - 8.0 [facility] Work Phone: Urine sediment bacteria coun t by microscopy (number/high power field)on 06-13-2021 Bacteria LM.HPF (Urine sed) [#/Area] 0 /[HPF] None Seen [facility] Work Phone: Urine specific gravity measu rementon 06-13-2021 Specific gravity (U) [Rel density] 1.020 1.002-1.03 0 [facility] Work Phone: Urobilinogen Auto test strip Ql (U)on 06-13-2021 Urobilinogen Ql (U) Normal mg/dl Normal [facility] Work Phone: Cervical or vagninal specime n microscopic examination by cytology stain (reported ason 05-19-2021 Cytology report Cyto stain Doc (Cvx/Vag) Comment [facility] Work Phone: Comment on above: The Pap smear is a s creening test designed to aid in thedetection of premalignant and malignant conditions of theuterine cervix. It is not a diagnostic procedure andshould not be used as the sole means of detecting cervicalcancer. Both false-positive and false-negative reports dooccur. Detection in cervical specim en of any of human papilloma virus (HPV) 16, 18, 31, 33,on 05-19-2021 HPV 16+18+31+33+35+39+45+51+ 52+56+58+59+66+68 DNA Probe+sig amp Ql (Cvx) Negative Negative [facility] Work Phone: Comment on above: This nucleic acid am plification test detects fourteen high-risk HPV types (16,18,31,33,35,39,45,51,52,56,58,59,66,68)without differentiation.Performed at: WB - [facility] [id number] [facility] CenterBarney rivasRatliff [place], [place] [id number] Director: Lexii Rojas MD, Phone: [phone] at: =G - [facility] [id number] [place], [place] [id number] Director: Lexii Rojas MD, Phone: [phone] Laboratory - Cytologyon 04-30 Nonprofit Financial Controller Cyto stain Nom (Cvx/Vag) [ID] Comment [facility] Work Phone: Comment on above: Olivier Elizondo, Cyto technologist (ASCP) Laboratory - Miscellaneous t estson 05-19-2021 Service comment (Unsp spec) [Interp] Comment [facility] Work Phone: Comment on above: This liquid based Th inPrep(R) pap test was screened withthe use of an image guided system. Service comment (Unsp spec) [Interp] . [facility] Work Phone: No Panel Informationon 05-19 Pap Smear QC Review Comment [facility] Work Phone: Comment on above: Yoselin Reza Cyto technologist Pathology report final diagnosis Narrative Comment [facility] Work Phone: Comment on above: NEGATIVE FOR INTRAEP ITHELIAL LESION OR MALIGNANCY.THIS SPECIMEN WAS RESCREENED PART OF OUR [employer] PROGRAM. Laboratory - Microbiology an d Antimicrobial susceptibilityon 04-06-2021 SARS-CoV-2 (COVID-19) RNA CINTHIA+probe Ql (Unsp spec) Negative Not Detect [facility] Work Phone: Comment on above: Normal Reference Ran ge: Not DetectedMethod:(RT-PCR) real-time reverse transcriptase PCRLuminex KANE Instrument*The Food and Drug Administration (FDA) has issued an Emergency Use Authorization (EAU) for the KANE SARS-CoV-2 Assay for the rapid detection of the virus that causes COVID-19. This test has been validated, but the FDAs independent review of this validation is pending.*Negative results do not preclude infection and should not be used as the sole basis for treatment or patient management. Optimum specimen types and timing for peak viral levels during infections caused by SARS-CoV-2 have not been determined. Collection of multiple specimens from the same patient may be necessary to detect the virus. The possibility of a false negative result should be considered if the patient has clinical presentation or has had recent exposure. Absolute lymphocyte counton 03-07-2021 Lymphocytes Auto (Unsp spec) [#/Vol] 0.90 10*3/uL 0.83-4.51 [facility] Work Phone: Absolute reticulocyte counto n 03-07-2021 Reticulocytes (Bld) [#/Vol] 0.00 10*3/uL 0-5 [facility] Work Phone: Basophil percentageon 2020 Basophil percentage 2.8 mg/dL 2.5-4.9 [facility] Work Phone: Bilirubin [Mass/Vol] 1.00 mg/dL 0.20-1.00 [facility] Work Phone: Comment on above: For patients on eltr ombopag therapy, use of Dimension Caspian TBIL is not recommended. Chloride [Moles/Vol] 106 mmol/L 98-107 [facility] Work Phone: Cholesterol [Mass/Vol] 147 mg/dL <200 [facility] Work Phone: Comment on above: <200 mg/dL Desirable 200-240 mg/dL Borderline >240 mg/dL High Risk Glucose [Mass/Vol] 77 mg/dL 74-[address] [facility] Work Phone: Comment on above: Please note revised GLUCOSE reference range effective 2017. Neutrophils (Bld) [#/Vol] 3.4 10*3/uL 2.0-7.7 [facility] Work Phone: Potassium [Moles/Vol] 4.1 mmol/L 3.5-5.1 [facility] Work Phone: Protein [Mass/Vol] 7.5 g/dL 6.4-8.[address] [facility] Work Phone: Sodium [Moles/Vol] 140 mmol/L 136-[address] [facility] Work Phone: Triglyceride [Mass/Vol] 90 mg/dL [facility] Work Phone: Comment on above: The drugs N-Acetylcy steine and Metamizole may falsely depress this assay.Serum Triglycerides Reference Interval Normal <150 mg/dL Borderline high 150 - 199 mg/dL High 200 - 499 mg/dL Very High > or = 500 mg/dL WBC (Bld) [#/Vol] 5.2 10*3/uL 4.4-11.[address] [facility] Work Phone: Bilirubin Test strip Ql (U)o n 03-07-2021 Bilirubin Ql (U) Negative Negative [facility] Work Phone: Blood erythrocytes count (nu mber/volume)on 03-07-2021 RBC (Bld) [#/Vol] 4.30 10*6/uL 4.2-5.4 [facility] Work Phone: Blood hemoglobin measurement (mass/volume)on 03-07-2021 Hemoglobin (Bld) [Mass/Vol] 13.5 g/dL 12.0-15.0 [facility] Work Phone: Blood platelet mean volumeon 03-07-2021 Platelet mean volume (Bld) [Entitic vol] 9.8 fL 6.2-12.0 [facility] Work Phone: Determination of erythrocyte mean corpuscular volume (MCV)on 03-07-2021 MCV (RBC) [Entitic vol] 94.4 fL 81-99 [facility] Work Phone: Direct bilirubinon Bilirubin.direct [Mass/Vol] 0.25 mg/dL 0.00-0.30 [facility] Work Phone: Hematocrit Auto (Bld) [Volum e fraction]on 03-07-2021 Hematocrit (Bld) [Volume fraction] 40.6 % 37-47 [facility] Work Phone: Ketones Test strip Ql (U)on 03-07-2021 Ketones Ql (U) Negative Negative [facility] Work Phone: Laboratory - Chemistry and C hemistry - challengeon 03-07-2021 ALP [Catalytic activity/Vol] 61 U/L 45-117 [facility] Work Phone: ALT [Catalytic activity/Vol] 21 U/L 13-56 [facility] Work Phone: Cholesterol.total/Choles terol in HDL [Mass ratio] 1.80 {ratio} [facility] Work Phone: CO2 [Moles/Vol] 29.0 mmol/L 21.0-32.0 [facility] Work Phone: Globulin (S) [Mass/Vol] 3.8 g/dL 2.2-4.2 [facility] Work Phone: Urea nitrogen/Creatinine [Mass ratio] 15.1 mg/mg 10-20 [facility] Work Phone: Laboratory - Hematology and Cell countson 03-07-2021 Erythrocyte distribution width (RBC) [Entitic vol] 41.0 fL 35.1-43.9 [facility] Work Phone: Erythrocyte distribution width (RBC) [Ratio] 11.9 % 11.6-14.6 [facility] Work Phone: MCH (RBC) [Entitic mass] 31.4 pg 27.0-32.0 [facility] Work Phone: Nucleated RBC/100 WBC (Bld) [Ratio] 0 % 0-5 [facility] Work Phone: MCHC Auto (RBC) [Mass/Vol]on 03-07-2021 MCHC (RBC) [Mass/Vol] 33.3 g/dL 32-36 [facility] Work Phone: Nitrite Test strip Ql (U)on 03-07-2021 Nitrite Ql (U) Negative Negative [facility] Work Phone: No Panel Informationon 03-07 Estimated GFR (MDRD) Amer 99 mL/min >60 [facility] Work Phone: Comment on above: GFR Calc Estimated GFR (MDRD) Non-Af Amer 82 mL/min >60 [facility] Work Phone: Comment on above: Non- GFR Calc Platelets bldon 03-07-2021 Platelets (Bld) [#/Vol] 386 10*3/uL 150-450 [facility] Work Phone: Protein Test strip Ql (U)on 03-07-2021 Protein Ql (U) Negative Negative [facility] Work Phone: Segmented neutrophils/100 WB C Auto (Bld)on 03-07-2021 Segmented neutrophils/100 WBC (Bld) 65.0 % 47-70 [facility] Work Phone: Serum or plasma albumin gem urement (mass/volume)on 03-07-2021 Albumin [Mass/Vol] 3.7 g/dL 3.2-5.[address] [facility] Work Phone: Serum or plasma albumin/glob ulin mass ratioon 03-07-2021 Albumin/Globulin [Mass ratio] 1.0 {ratio} 0.9-2.4 [facility] Work Phone: Serum or plasma calcium gem urement (mass/volume)on 03-07-2021 Calcium [Mass/Vol] 9.0 mg/dL 8.5-10.[address] [facility] Work Phone: Serum or plasma cholesterol in HDL measurement (mass/volume)on 03-07-2021 Cholesterol in HDL [Mass/Vol] 80 mg/dL [facility] Work Phone: Comment on above: The drugs N-Acetylcy steine and Metamizole may falsely depress this assay. Reference Range HDL <40 mg/dL Low HDL Cholesterol HDL >or= 60 mg/dL High HDL Cholesterol Serum or plasma cholesterol in VLDL measurement (mass/volume)on 03-07-2021 Cholesterol in VLDL [Mass/Vol] 18 mg/dL 5-40 [facility] Work Phone: Serum or plasma creatinine m easurement (mass/volume)on 03-07-2021 Creatinine [Mass/Vol] 0.79 mg/dL 0.55-1.02 [facility] Work Phone: Comment on above: The validity of the calculated GFR & GFRAA in patients over 70 years has not been determined. Clinical correlation is essential. Serum or plasma low density lipoprotein (LDL) cholesterol measurement (mass/volume)on 03-07-2021 Cholesterol in LDL [Mass/Vol] 49 mg/dL 0-130 [facility] Work Phone: Serum or plasma urea nitroge n measurement (mass/volume)on 03-07-2021 Urea nitrogen [Mass/Vol] 12 mg/dL 7-18 [facility] Work Phone: Serum or plasma uric acid me asurement (mass/volume)on 03-07-2021 Urate [Mass/Vol] 3.1 mg/dL 2.6-6.0 [facility] Work Phone: Comment on above: The drugs N-Acetylcy steine and Metamizole may falsely depress this assay. Thin prep Papanicolaou smear with manual screeningon 03-07-2021 Thin prep Papanicolaou smear with manual screening 15 U/L 15-37 [facility] Work Phone: Thin prep Papanicolaou smear with manual screening 5 5-15 [facility] Work Phone: Thin prep Papanicolaou smear with manual screening 140 U/L 84-246 [facility] Work Phone: Urine blood detectionon 02-26 RBC Ql (U) Negative Negative [facility] Work Phone: Urine clarityon 03-07-2021 Clarity (U) Clear Clear [facility] Work Phone: Urine color determinationon 03-07-2021 Color (U) Yellow Yellow [facility] Work Phone: Urine glucose detectionon Glucose Ql (U) Normal mg/dl Normal [facility] Work Phone: Urine leukocyte esterase det ection by dipstickon 03-07-2021 Leukocyte esterase Test strip Ql (U) 25 /ul Negative [facility] Work Phone: Urine pHon 03-07-2021 pH (U) 7.0 [pH] [facility] Work Phone: Urine specific gravity measu rementon 03-07-2021 Specific gravity (U) [Rel density] 1.010 [facility] Work Phone: Urobilinogen Auto test strip Ql (U)on 03-07-2021 Urobilinogen Ql (U) Normal mg/dl Normal [facility] Work Phone: CBC W/DIFFon 12-16-2020 BASO ABS 0.10 K/CU MM Normal 0-0.2 [facility] Comment on above: Performed By: #### L 200.90865, L200.16105 #### [facility] [address] [place], [place] [id number] Basophils/100 WBC (Bld) 0.9 % Normal 0-[address] [facility] Comment on above: Performed By: #### L 200.08669, L200.81733 #### [facility] [address] [place] [address] EOS ABS 0.10 K/CU MM Normal 0-0.5 [facility] Comment on above: Performed By: #### L 200.87701, L200.49460 #### [facility] [address] [place] [address] Eosinophils/100 WBC (Bld) 1.9 % Normal 0-5 [facility] Comment on above: Performed By: #### L 200.85528, L200.00758 #### [facility] [address] [place] [address] Erythrocyte distribution width (RBC) [Ratio] 12.2 % Normal 11-14.5 [facility] Comment on above: Performed By: #### L 200.28793, L200.77272 #### [facility] [address] [place] [address] Hematocrit (Bld) [Volume fraction] 38.2 % Normal 35.0-47.0 [facility] Comment on above: Performed By: #### L 200.55213, L200.29842 #### [facility] [address] [place] [address] Hemoglobin (Bld) [Mass/Vol] 12.7 g/dL Normal 11.5-15.5 [facility] Comment on above: Performed By: #### L 200.59170, L200.09229 #### [facility] [address] [place] [address] IMMATR GRAN ABS 0.00 K/CU MM Normal Less than 2 [facility] Comment on above: Performed By: #### L 200.69765, L200.67435 #### [facility] [address] [place] [address] IMMATURE GRAN % 0.4 % Normal Less than 2 [facility] Comment on above: Performed By: #### L 200.02792, L200.97650 #### [facility] [address] [place] [address] LYMPH ABS 1.00 K/CU MM Normal 0.9-4.4 [facility] Comment on above: Performed By: #### L 200.91975, L200.98127 #### [facility] [address] [place] [address] Lymphocytes/100 WBC (Bld) 14.8 % Low 20-40 [facility] Comment on above: Performed By: #### L 200.84780, L200.48946 #### [facility] [address] [place] [address] MCHC (RBC) [Mass/Vol] 33.2 g/dL Normal 32.0-36.0 [facility] Comment on above: Performed By: #### L 200.81023, L200.94760 #### [facility] [address] [place] [address] MCV (RBC) [Entitic vol] 94.1 fL Normal 80.0-99.0 [facility] Comment on above: Performed By: #### L 200.65302, L200.04775 #### [facility] [address] [place] [address] MONO ABS 1.00 K/CU MM Normal 0.1-1.1 [facility] Comment on above: Performed By: #### L 200.20825, L200.66404 #### [facility] [address] [place] [address] Monocytes/100 WBC (Bld) 13.8 % High 2-10 [facility] Comment on above: Performed By: #### L 200.29926, L200.72921 #### [facility] [address] [place] [address] NEUTROPHIL ABS 4.70 K/CU MM Normal 2.0-8.3 [facility] Comment on above: Performed By: #### L 200.28058, L200.52818 #### [facility] [address] [place] [address] Neutrophils/100 WBC (Bld) 68.2 % Normal 45-75 [facility] Comment on above: Performed By: #### L 200.01052, L200.30355 #### [facility] [address] [place] [address] Nucleated RBC/100 WBC (Bld) [Ratio] 0.0 % Normal Less than 1 [facility] Comment on above: Performed By: #### L 200.65114, L200.22446 #### [facility] [address] [place] [address] Platelet mean volume (Bld) [Entitic vol] 11.8 fL Normal 9.4-12.4 [facility] Comment on above: Performed By: #### L 200.94868, L200.57541 #### [facility] [address] [place], [place] [address] PLT 350 K/CU MM Normal 150-450 [facility] Comment on above: Performed By: #### L 200.41971, L200.34481 #### [facility] [address] [place], [place] [address] RBC 4.06 M/CU MM Normal 3.90-5.30 [facility] Comment on above: Performed By: #### L 200.19552, L200.57924 #### [facility] [address] [place] [address] WBC 6.9 K/CUMM Normal 4.5-11.0 [facility] Comment on above: Performed By: #### L 200.00990, L200.88427 #### [facility] [address] [place] [address] CRPon 12-16-2020 CRP [Mass/Vol] 0.4 mg/L Normal LESS THAN 1 [facility] Comment on above: Performed By: #### L 550.48778 #### [facility] [address] [place] [address] WSR/MODon 12-16-2020 WSR/MOD 6 MM/HR Normal 0-20 [facility] Comment on above: Performed By: #### L 200.56262, L200.24294 #### [facility] [address] [place], [place] [address] BODY FLDon 01-29-2020 BODY FLD GRAM STAIN FEW WBC'S NO ORGANISMS SEEN NO GROWTH AFTER 5 DAYS Normal [facility] Comment on above: Performed By: #### M 100.07873 #### [facility] [address] [place], [place] [address] FLC CELL W/DIFFon 01-26-2020 PATH COMMENTS Normal [facility] Comment on above: Result Comment: CYTO PREP INTERPRETATION: Hemodiluted specimen. Reviewed by Imtiaz Russo D.O., Pathologist. 01/25/2020 [id number] Performed By: #### L 400.39893, L400.07582 #### [facility] [address] [place] [address] FLC CELL W/DIFFon 01-24-2020 FLD APPEAR BLOODY Normal [facility] Comment on above: Performed By: #### L 400.72706, L400.35980 #### [facility] [address] [place] [address] FLD BASO 0 % Normal [facility] Comment on above: Performed By: #### L 400.53201, L400.06042 #### [facility] [address] [place], [place] [address] FLD BLAST 0 % Normal [facility] Comment on above: Performed By: #### L 400.39446, L400.30201 #### [facility] [address] [place], [place] [address] FLD EOS 0 % Normal [facility] Comment on above: Performed By: #### L 400.81638, L400.99984 #### [facility] [address] [place] [address] FLD LYMPH 63 % Normal NONE [facility] Comment on above: Performed By: #### L 400.36241, L400.40885 #### [facility] [address] [place], [place] [address] FLD MONO/HISTIO 25 % Normal NONE [facility] Comment on above: Performed By: #### L 400.23534, L400.48608 #### [facility] [address] [place] [address] FLD NEUTS 12 % Normal NONE [facility] Comment on above: Performed By: #### L 400.44613, L400.97205 #### [facility] [address] [place], [place] [address] FLD OTHER CELLS 0 Normal [facility] Comment on above: Performed By: #### L 400.35241, L400.41131 #### [facility] [address] [place] [address] FLD PMN% 19.1 % Normal [facility] Comment on above: Result Comment: 2 pa rt automated diff (polymorphonuclear cells) Performed By: #### L 400.26345, L400.14327 #### [facility] [address] [place], [place] [address] FLD RBC [id number] /CU MM Normal [facility] Comment on above: Performed By: #### L 400.70331, L400.45187 #### [facility] [address] [place], [place] [address] FLD WBC 261 /CU MM High 0-5 [facility] Comment on above: Performed By: #### L 400.95310, L400.95994 #### [facility] [address] [place] [address] FLDMN% 80.9 % Normal [facility] Comment on above: Result Comment: 2 pa rt automated diff (mononuclear cells) Performed By: #### L 400.88706, L400.76125 #### [facility] [address] [place] [address] FLUID COLOR RED Normal [facility] Comment on above: Performed By: #### L 400.20021, L400.75558 #### [facility] [address] [place] [address] SOURCE KNEE Normal [facility] Comment on above: Performed By: #### L 400.12289, L400.12882 #### [facility] [address] [place] [address] FLUID CRYSTALSon 01-24-2020 FLUID CRYSTALS Normal [facility] Comment on above: Result Comment: NO C RYSTALS SEEN Performed By: #### L 400.61692, L400.44654 #### [facility] [address] [place] [address] Vital Signs Date Time Vital Sign Value Performing Clinician Faci lity 05-16-2024 15:27-0500 Body height 160.02 cm COLLETTE PARKER MD Work Phone: [facility] 05-16-2024 15:27-0500 Body mass index (BMI) [Ratio] 27.6 kg/m2 COLLETTE PARKER MD Work Phone: [facility] 05-16-2024 15:27-0500 Body weight 70.76 kg COLLETTE PARKER MD Work Phone: [facility] 05-16-2024 15:27-0500 Diastolic blood pressure 82 mm[Hg] COLLETTE PARKER MD Work Phone: [facility] 05-16-2024 15:27-0500 Systolic blood pressure 133 mm[Hg] COLLETTE PARKER MD Work Phone: [facility] 04-05-2023 14:48-0500 Body height 160.02 cm INC[employer]ATOR [employer]C Judith Ramos [employer]ATOR [employer] Work Phone: [facility] 04-05-2023 14:38-0500 Body mass index (BMI) [Ratio] 26.4 kg/m2 INC[employer]ATOR [employer]-Morris Ramos [employer]ATOR [employer] Work Phone: [facility] 04-05-2023 14:38-0500 Body weight 65.48 kg INCINERATOR [employer]-C Judith Havana [employer]ATOR [employer] Work Phone: [facility] 04-05-2023 14:38-0500 Diastolic blood pressure 72 mm[Hg] INC[employer]ATOR [employer]-C Judith Rachel [employer]ATOR [employer]ER Work Phone: [facility] 04-05-2023 14:38-0500 Systolic blood pressure 118 mm[Hg] INC[employer]ATOR [employer]-C Judith Havana INCINERATOR [employer]ER Work Phone: [facility] 10-05-2022 11:55-0400 Body temperature 97.4 [degF] YOON KENDIS Work Phone: [facility] 10-05-2022 11:55-0400 Diastolic blood pressure 85 mm[Hg] YOON KENDIS Work Phone: [facility] 10-05-2022 11:55-0400 Heart rate 61 /min YOON KENDIS Work Phone: [facility] 10-05-2022 11:55-0400 Respiratory rate 16 /min YOON KENDIS Work Phone: [facility] 10-05-2022 11:55-0400 SaO2% (BldA) [Mass fraction] 100 % YOON KENDIS Work Phone: [facility] 10-05-2022 11:55-0400 Systolic blood pressure 119 mm[Hg] YOON KENDIS Work Phone: [facility] 10-05-2022 10:30-0400 Body height 160.02 cm YOON KENDIS Work Phone: [facility] 10-05-2022 10:30-0400 Body mass index (BMI) [Ratio] 24.7 kg/m2 YOON KENDIS Work Phone: [facility] 10-05-2022 10:30-0400 Body weight 63.4 kg YOON KENDIS Work Phone: [facility] 08-27-2022 11:00-0400 Body height 160.02 cm INC[employer]ATOR [employer]-C Cris Hollis [employer]ATOR [employer]ER Work Phone: [facility] 08-27-2022 11:00-0400 Body weight 63.23 kg INCINERATOR [employer]-C Cris Hollis [employer]ATOR [employer]ER Work Phone: [facility] 07-27-2022 09:25-0400 Body height 160.02 cm INCINERATOR [employer]-C Cris Hollis INC[employer]ATOR [employer]ER Work Phone: [facility] 07-27-2022 09:25-0400 Body mass index (BMI) [Ratio] 25.4 kg/m2 INC[employer]ATOR [employer]-C Cris Hollis [employer]ATOR [employer]ER Work Phone: [facility] 07-27-2022 09:25-0400 Body weight 65.31 kg INCINERATOR [employer]-C Cris Hollis INCIN[employer]ATOR [employer]ER Work Phone: [facility] 07-27-2022 09:25-0400 Diastolic blood pressure 84 mm[Hg] INC[employer]ATOR [employer]-C Cris Hollis [employer]INERATOR [employer]ER Work Phone: [facility] 07-27-2022 09:25-0400 Heart rate 74 /min INC[employer]ATOR [employer]-C Cris Hollis INCIN[employer]ATOR [employer]ER Work Phone: [facility] 07-27-2022 09:25-0400 SaO2% (BldA) [Mass fraction] 98 % INCIN[employer]ATOR [employer]-C Cris Hollis [employer]INERATOR [employer]ER Work Phone: [facility] 07-27-2022 09:25-0400 Systolic blood pressure 127 mm[Hg] INC[employer]ATOR [employer]ER-C Cris Hollis INCINERATOR [employer]ORER Work Phone: [facility] 07-29-2021 14:55-0400 Body height 160.02 cm RICHI STODDARD Work Phone: [facility] Work Phone: 07-29-2021 14:55-0400 Body mass index (BMI) [Ratio] 24.4 kg/m2 RICHI Nguyễn PA Work Phone: [facility] Work Phone: 07-29-2021 14:55-0400 Body temperature 98.7 [degF] PA Sonido Nguyễn PA Work Phone: [facility] Work Phone: 07-29-2021 14:55-0400 Body weight 62.59 kg PA Sonido Nguyễn PA Work Phone: [facility] Work Phone: 07-29-2021 14:55-0400 Diastolic blood pressure 62 mm[Hg] PA Sonido Nguyễn PA Work Phone: [facility] Work Phone: 07-29-2021 14:55-0400 Heart rate 90 /min PA Sonido Nguyễn PA Work Phone: [facility] Work Phone: 07-29-2021 14:55-0400 Respiratory rate 14 /min PA Sonido Nguyễn PA Work Phone: [facility] Work Phone: 07-29-2021 14:55-0400 SaO2% (BldA) [Mass fraction] 99 % PA Sonido Nguyễn PA Work Phone: [facility] Work Phone: 07-29-2021 14:55-0400 Systolic blood pressure 110 mm[Hg] PA Sonido Nguyễn PA Work Phone: [facility] Work Phone: 06-24-2021 15:36-0400 Body height 157.5 cm Demetrio Hancock MD Work Phone: [facility] 06-24-2021 15:36-0400 Body temperature 98.2 [degF] Demetrio Hancock MD Work Phone: [facility] 06-24-2021 15:36-0400 Body weight 62.6 kg Demetrio Hancock MD Work Phone: [facility] 06-24-2021 15:36-0400 Diastolic blood pressure 68 mm[Hg] Demetrio Hancock MD Work Phone: [facility] 06-24-2021 15:36-0400 Heart rate 103 /min Demetrio Hancock MD Work Phone: [facility] 06-24-2021 15:36-0400 SaO2% (BldA) [Mass fraction] 96 % Demetrio Hancock MD Work Phone: [facility] 06-24-2021 15:36-0400 Systolic blood pressure 112 mm[Hg] Demetrio Hancock MD Work Phone: [facility] Encounters Encounter Date Encounter Type Care Provider Facility Start: 10-16-2024 End: 10-16-2024 Patient encounter procedure Adam Fely HENDRICKS -[facility] Work Phone: Start: 10-16-2024 End: 10-16-2024 ambulatory COLLETTE PARKER MD Work Phone: -[facility] Start: 09-07-2024 End: 09-07-2024 ambulatory COLLETTE PARKER MD Work Phone: [facility] Work Phone: Start: 09-07-2024 End: 09-07-[address] Philippe Gonzalez MD -Laboratory Specimen Work Phone: Start: 09-07-2024 End: 09-07-2024 ambulatory COLLETTE PARKER Facility:[facility] Start: 09-04-2024 End: 09-04-2024 ambulatory COLLETTE PARKER MD Work Phone: [facility] Work Phone: Start: 09-04-2024 End: 09-04-2024 Patient encounter procedure Radha STEWART -[facility] Work Phone: Start: 09-04-2024 End: 09-04-2024 ambulatory COLLETTE PARKER Facility:[facility] Start: 07-15-2024 End: 07-15-2024 Patient encounter procedure OUT OF TOWN DOCTOR -Laboratory Specimen Work Phone: Start: 07-15-2024 End: 07-15-2024 ambulatory Out of Town Doctor Facility:[facility] Start: 07-05-2024 End: 07-05-2024 ambulatory COLLETTE PARKER MD Work Phone: [facility] Work Phone: Start: 07-05-2024 End: 07-05-2024 Patient encounter procedure COLLETTE PARKER MD Work Phone: -Laboratory, Specimen Work Phone: Start: 07-05-2024 End: 07-05-2024 ambulatory CLEMENTINA SANCHEZ Facility:[facility] Start: 06-24-2024 End: 06-24-2024 ambulatory COLLETTE PARKER MD Work Phone: [facility] Work Phone: Start: 06-24-2024 End: 06-24-2024 Patient encounter procedure COLLETTE PARKER MD -Laboratory, Specimen Work Phone: Start: 06-24-2024 End: 06-24-2024 ambulatory COLLETTE PARKER Facility:[facility] Start: 05-17-2024 End: 05-17-2024 Patient encounter procedure COLLETTE PARKER MD -Laboratory Work Phone: Start: 05-17-2024 End: 05-17-2024 ambulatory COLLETTE PARKER Facility:[facility] Start: 05-16-2024 End: 05-16-2024 Patient encounter procedure Radha STEWATR -[facility] Work Phone: Start: 05-16-2024 End: 05-16-2024 ambulatory COLLETTE PARKER Facility:[facility] Start: 04-14-2024 ambulatory Meghan Chicas lity:[facility] Start: 03-31-2024 End: 03-31-2024 Patient encounter procedure Adam Geiger DO -[facility] Work Phone: Start: 03-31-2024 End: 03-31-2024 ambulatory COLLETTE PARKER Facility:[facility] Start: 02-29-2024 End: 02-29-[address] Philippe Gonzalez MD -Laboratory Work Phone: Start: 02-29-2024 Registered Referred [employer]OYEE [employer] -Employee Health Start: 02-29-2024 [facility] Start: 02-29-2024 End: 02-29-[address] [facility] Facility:[facility] Start: 12-31-2023 End: 12-31-[address] [facility] Facility:[facility] Start: 12-14-2023 End: 12-14-2023 ambulatory CLEMENTINA SANCHEZ Facility:[facility] Start: 11-30-2023 ambulatory Darin Whitman ty:[facility] Start: 07-03-2023 End: 07-03-2023 ambulatory [employer] Judith Ramos [employer] Work Phone: [facility] Work Phone: Start: 07-03-2023 End: 07-03-2023 Patient encounter procedure [employer] Judith Ramos [employer]ATOR [employer] Work Phone: [facility]-Laboratory Work Phone: Start: 06-22-2023 End: 06-27-2023 ambulatory YOON RAE MD Facility:[facility] Start: 06-22-2023 End: 06-27-2023 Encounter for general adult medical examination without abnormal findings YOON RAE MD Facility:[facility] Start: 06-10-2023 End: 06-10-2023 ambulatory [employer] Judith Ramos [employer]ATOR [employer] Work Phone: [facility] Work Phone: Start: 06-10-2023 End: 06-10-2023 Patient encounter procedure [employer] Judith Havana [employer] Work Phone: [facility]-Laboratory, Specimen Work Phone: Start: 04-29-2023 End: 04-29-2023 Patient encounter procedure [employer]C Judith Solers [employer]ER Work Phone: [facility] Work Phone: Start: 04-14-2023 End: 04-14-2023 ambulatory [employer] Judith Ramos [employer]ATOR [employer]ER Work Phone: [facility] Work Phone: Start: 04-14-2023 End: 04-14-2023 Patient encounter procedure [employer] Judith Ramos [employer]ATOR [employer]ER Work Phone: [facility] [place], [facility] Work Phone: Start: 04-10-2023 End: 04-10-2023 ambulatory [employer] Judith Ramos [employer]ATOR [employer]ER Work Phone: [facility] Work Phone: Start: 04-10-2023 End: 04-10-2023 Patient encounter procedure [employer] Judith Ramos [employer]ATOR [employer] LABORER Work Phone: [facility]-Laboratory Work Phone: Start: 04-05-2023 End: 04-05-2023 Patient encounter procedure [employer] Judith Ramos [employer]ATOR [employer] LABORER Work Phone: [facility] Work Phone: Start: 03-06-2023 End: 03-06-2023 ambulatory [facility] Work Phone: Start: 03-06-2023 End: 03-06-2023 Patient encounter procedure [facility]-Laboratory Work Phone: Start: 10-05-2022 Non-patient / Non-visit YOON RAE Work Phone: [facility] Start: 10-05-2022 End: 10-05-2022 Admission to same day surgery center YOONMAIA RAE Work Phone: [facility]-Endoscopy Work Phone: Start: 10-05-2022 End: 10-05-2022 ambulatory YOONMAIA MILLERIS Work Phone: [facility] Work Phone: Start: 08-27-2022 End: 09-25-2022 ambulatory [employer] Cris Hollis [employer]ATOR [employer]ER Work Phone: [facility] Work Phone: Start: 08-27-2022 End: 09-25-2022 Discharged Recurring [employer]ATOR [employer]-C Cris Hollis [employer]ATOR [employer]ER Work Phone: [facility]-Nutritional Services Work Phone: Start: 08-19-2022 End: 08-19-2022 ambulatory [employer] Cris Hollis [employer]ATOR [employer]ORER Work Phone: [facility] Work Phone: Start: 08-19-2022 End: 08-19-2022 Patient encounter procedure [employer]C Cris Hollis [employer]ATOR [employer] LABORER Work Phone: [facility]-Outpatient Breast Imaging Start: 08-13-2022 End: 08-13-2022 Patient encounter procedure [employer]C Cris Hollis [employer]ATOR [employer] LABORER Work Phone: [facility]-Nuclear Medicine, [facility] Start: 08-01-2022 End: 08-01-2022 ambulatory [employer]C Cris Hollis [employer]ATOR [employer]ORER Work Phone: [facility] Work Phone: Start: 08-01-2022 End: 08-01-2022 Patient encounter procedure [employer] Cris Hollis [employer]ATOR [employer] LABORER Work Phone: [facility]-Laboratory Start: 07-29-2022 End: 07-29-2022 Patient encounter procedure [employer]-C Cris Hollis [employer]ATOR [employer] LABORER Work Phone: [facility]-Laboratory, Specimen Start: 07-27-2022 End: 07-27-2022 ambulatory [employer] Cris Hollis [employer]ATOR [employer] LABORER Work Phone: [facility] Work Phone: Start: 07-27-2022 End: 07-27-2022 Patient encounter procedure [employer]-C Cris Hollis [employer]ATOR [employer] LABORER Work Phone: [facility] Gastroenterology Start: 07-16-2022 End: 07-16-2022 ambulatory [facility] Work Phone: Start: 07-16-2022 End: 07-16-2022 Patient encounter procedure [facility]-Laboratory, Specimen Start: 07-10-2022 End: 07-10-2022 Patient encounter procedure [facility]-Laboratory, [place] lead etl developer Off Start: 12-17-2021 End: 12-17-2021 ambulatory [facility] Work Phone: Start: 12-17-2021 End: 12-17-2021 Patient encounter procedure [facility] Start: 09-22-2021 End: 09-22-2021 Patient encounter procedure RICHI STODDARD Work Phone: [facility] Start: 08-01-2021 Telephone encounter Demetrio arroyo MD Work Phone: General Surgery Comment on above: Release Of Medical R ecords Start: 07-29-2021 End: 07-29-2021 Patient encounter procedure RICHI STODDARD Work Phone: [facility] Start: 06-24-2021 End: 06-24-2021 Patient encounter procedure Demetrio Hancock MD Work Phone: General Surgery Comment on above: APPOINTMENT CANCELLE D (Primary Dx) Start: 06-13-2021 End: 06-13-2021 Patient encounter procedure [facility]-Laboratory Start: 06-09-2021 End: 06-09-2021 Patient encounter procedure [facility]-Outpatient Breast Imaging Start: 05-19-2021 End: 05-19-2021 Patient encounter procedure [facility]-Laboratory, Specimen Start: 04-06-2021 Registered Referred [facility]Employee Health Start: 03-07-2021 [facility] Date Procedure Procedure Detail Performing Clinician Start: 09-07-2024 Immunoglobulin M measurement COLLETTE PARKER MD Work Phone: Comment on above: Performed at: [address] [id number] Director: Ej Landers PhD, Phone: [phone] Start: 09-04-2024 Screening mammography R JULIANNE PARKER MD Work Phone: Start: 07-15-2024 Urine culture COLLETTE GRUBER MD Work Phone: Start: 06-24-2024 C>3< complement assay R JULIANNE PARKER MD Work Phone: Comment on above: Performed at: [address] Director: Ej Landers PhD, Phone: [phone] Start: 06-24-2024 Urnls dip stick/tabl et reagent auto microscopy COLLETTE PARKER MD Work Phone: Start: 05-17-2024 Estradiol measurement R JULIANNE PARKER MD Work Phone: Comment on above: NORMAL REFERENCE RAN GES FEMALE FOLLICULAR 21.4 - 164.8 pg/mL MID-CYCLE PEAK 49.9 - 367.2 pg/mL LUTEAL 40.2 - 259.0 pg/mL POST-MENOPAUSAL ON MHT <11.0 - 462.1 pg/mL NOT ON MHT <11.0 - 58.3 pg/mL MALE <11.0 - 52.5 pg/mL NOTE:[employer] HAS CONFIRMED THE DRUG FULVETRANT (FASLODEX) MAY CAUSE FALSELY ELEVATED ESTRADIOL RESULTS WHEN USING THIS TEST METHOD. IF PATIENT IS TAKING FULVESTRANT AN ALTERNATIVE METHOD SHOULD BE USED TO DETERMINE ESTRADIOL CONCENTRATION. Start: 05-17-2024 Follicle stimulating hormone measurement COLLETTE PARKER MD Work Phone: Comment on above: NORMAL REFERENCE RAN GES FEMALE FOLLICULAR 2.3 - 12.6 mIU/mL MID-CYCLE PEAK 5.2 - 17.5 mIU/mL LUTEAL 1.7 - 12.9 mIU/mL POST-MENOPAUSAL ON MHT 5.9 - 72.8 mIU/mL NOT ON MHT 12.7 - 132.2 mlU/mL MALE 0.7 - 10.8 mIU/mL Start: 05-17-2024 Luteinizing hormone measurement COLLETTE PARKER MD Work Phone: Comment on above: NORMAL REFERENCE RAN GES FEMALE FOLLICULAR 1.9 - 26.2 mIU/mL MID-CYCLE PEAK 22.8 - 76.1 mIU/mL LUTEAL 0.6 - 16.6 mIU/mL POST-MENOPAUSAL ON MHT 1.1 - 52.4 mIU/mL NOT ON MHT 8.6 - 61.8 mIU/mL MALE 1.2 - 10.6 mIU/mL Start: 06-10-2023 Clostridium difficil e detection [employer]-C Judith Ramos [employer]ATOR [employer]ER Work Phone: Start: 06-10-2023 Giardia Antigen (JESSICA) N P-C Judith Solers [employer]ATOR [employer] LABORER Work Phone: Start: 06-10-2023 Lactoferrin measurement [employer]-C Judith Ramos [employer]ATOR [employer] LABORER Work Phone: Start: 06-10-2023 Measurement of occul t blood in stool specimen using immunoassay [employer]ATOR [employer]-C Judith Ramos [employer]ATOR [employer]ER Work Phone: Start: 06-10-2023 Nucleic acid assay [employer]-C Judith Ramos [employer] Work Phone: Start: 06-10-2023 Ova OR parasites identification [employer]ER-C Judith Ramos [employer]ATOR [employer] LABORER Work Phone: Start: 04-14-2023 Pelvic echography [employer]ATOR [employer]-C Judith Ramos [employer]ATOR [employer] LABORER Work Phone: Start: 10-05-2022 Colonoscopy YOON MILLER IS Work Phone: Start: 08-19-2022 Screening mammography N P-C Cris Shafer [employer]ORER Work Phone: Start: 08-13-2022 Radionuclide gastric emptying study [employer]-C Cris Hollis [employer]ATOR [employer]ER Work Phone: Start: 07-29-2022 Lactoferrin measurement [employer]ATOR [employer]-C Cris Barajasne [employer]ATOR [employer] LABORER Work Phone: Start: 12-17-2021 MRI of brain with contrast Start: 09-22-2021 MRI of bilateral stone asts with contrast RICHI STODDARD Work Phone: Start: 06-09-2021 Bilateral mammography Start: 06-09-2021 Ultrasonography of breast Plan of Treatment Date Care Activity Detail Author Start: 09-07-2024 Immunoglobulin measurement [facility] Start: 10-05-2022 Patient discharge [facility] Start: 08-01-2022 Lupus anticoagulant assay [facility] Start: 08-01-2022 Procedure [facility] Start: 07-29-2022 Protein measurement [facility] Start: 04-29-2021 COVID-19 VACCINE (4 - Booster for Moderna series) COVID-19 VACCINE (4 - Booster for Moderna series) [facility] Start: 2018 COLOGUARD (FIT-DNA) COLOGUARD (FIT-DNA) [facility] Start: 2018 Colonoscopy COLONOSCOPY [facility] Start: 2018 COLORECTAL CANCER SCREENING COLORECTAL CANCER SCREENING [facility] Start: [address] COLONOGRAPHY [facility] Start: 2018 DIABETES SCREEN DIABETES SCREEN [facility] Start: 2018 FECAL OCCULT BLOOD FECAL OCCULT BLOOD [facility] Start: 2018 LIPID SCREEN LIPID SCREEN [facility] Start: 2018 SIGMOIDOSCOPY SIGMOIDOSCOPY [facility] Start: 2013 Mammography MAMMOGRAM [facility] Start: 2003 HPV TESTING HPV TESTING [facility] Start: 1994 PAP TESTING PAP TESTING [facility] Start: 1992 Urine microalbumin profile DTAP,TDAP,TD (1 - Tdap) [facility] Start: 1991 HEPATITIS C SCREENING HEPATITIS C SCREENING [facility] Start: 1991 HIV SCREENING HIV SCREENING [facility] Start: 1985 Adult depression screening assessment DEPRESSION SCREENING [facility] Start: 1979 PNEUMOCOCCAL (1 - PCV) PNEUMOCOCCAL (1 - PCV) [facility] ic [id number] [Mass/volume] in Serum or Plasma [facility] Cardiolipin IgG Ab [Units/volume] in Serum or Plasma [facility] Cardiolipin IgM Ab [Units/volume] in Serum or Plasma [facility] Elastase.pancreatic [Presence] in Stool [facility] Fat [Mass/mass] in Stool [facility] Fat.neutral [Presenc e] in Stool [facility] Giardia lamblia anti gen assay [facility] IgA [Mass/volume] in Serum or Plasma [facility] IgG [Mass/volume] in Serum or Plasma [facility] IgM [Mass/volume] in Serum or Plasma [facility] Lupus anticoagulant neutralization platelet [Time] in Platelet poor plasma by Coagulation assay [facility] MG Breast - bilatera l Screening [facility] MG Breast - bilatera l Screening [facility] Ova and parasites identified in Unspecified specimen by Light microscopy [facility] Partial thromboplast in time ratio [facility] Path report.final Dx Spec [facility] Patient referral [facility] Work Phone: Protein measurement [facility] Radionuclide gastric emptying study [facility] Thrombin time [facility] US Pelvis [facility] US Pelvis transvaginal [facility] Immunizations Immunization Date Immunization Notes Care Provider Fa cility 01-14-2023 Covid (Spikevax) [facility] 01-14-2023 influenza, injectabl e, quadrivalent, preservative free [facility] 01-03-2021 influenza, injectabl e, quadrivalent, preservative free [facility] 01-03-2021 influenza, seasonal, injectable [facility] 04-23-2020 Covid (Moderna) [facility] 03-26-2020 Covid (Moderna) [facility] 12-24-2017 influenza, injectabl e, quadrivalent, preservative free [facility] 12-24-2017 influenza, seasonal, injectable [facility] 12-16-2016 influenza, injectabl e, quadrivalent, preservative free [facility] 12-16-2016 influenza, seasonal, injectable [facility] 12-27-2015 influenza, injectabl e, quadrivalent, preservative free [facility] 12-27-2015 influenza, seasonal, injectable [facility] 12-26-2014 influenza, injectabl e, quadrivalent, preservative free [facility] 12-26-2014 influenza, seasonal, injectable [facility] 12-21-2013 influenza, injectabl e, quadrivalent, preservative free [facility] 12-21-2013 influenza, seasonal, injectable [facility] Payers Date Payer Category Payer Self-pay [id number] 2020 Unknown MMO MMO [employer] [id number] 2020-Present [phone] [address] [place] [address] PPO [id number] 2009 Unknown [id number] 1973 Unknown [id number] Unknown [id number] Unknown [id number] Unknown [id number] Unknown [id number] [id number] Unknown [id number] Unknown [id number] [id number] Unknown [id number] [id number] Unknown [id number] Unknown [id number] Unknown [id number] [id number] Unknown [id number] [id number] Unknown [id number] [id number] Unknown [id number] [id number] Unknown [id number] [id number] Unknown [id number] Social History Date Type Detail Facility Start: 11-30-2014 End: 11-04-2022 Tobacco smoking status NHIS Unknown if ever smoked [facility] Start: 1975 Sex Assigned At Female W [facility] Start: 08-17-2023 Tobacco smoking stat us NHIS Never smoked tobacco [facility] Start: 06-24-2021 Alcohol intake 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) [facility] Start: 04-24-2009 History SDOH Alcohol Comment socially [facility] Start: 1975 Sex Assigned At Not on file [facility] Start: 06-14-2021 End: 06-24-2021 Exposure to SARS-CoV-2 (event) Not sure [facility] Start: 06-27-2024 End: 07-11-2024 Sex Female (finding) [facility] Goals Date Patient Goal Desired Activity /State Mental Status Date Assessment Result Facility 10-05-2022 Cognitive function Voice/Name [facility] Work Phone: Clinical Notes 05-19-2021 to 05-16-2024 Note Date & Type Note Facility 05-16-2024 Evaluation note Diagnosis Onset Date Resolution Climacteric acute April 3:25pm Overweight (BMI 25.0-29.9) acute May 16, 2 025 3:25pm Women's annual routine gynecological examination acute May 16, 2 025 3:25pm [facility] Work Phone: 1(223) 833-561201-03-2025 Evaluation note* Diagnosis Onset Date Resolution Status Admit Date Early satiety chronic March 3:27pm Flatulence/gas pain/belching chronic March 31, 2024 3:27pm IBS (irritable bowel syndrome) chron ic March 31, 2024 3:27pm Constipation inactive March 31, 2024 3:27pm Climacteric acute April 3:25pm Overweight (BMI 25.0-29.9) acute May 16, 2024 3:25pm Women's annual routine gynecological examination acute 2024 3:25pm [facility] Work Phone: 1(240) 614-894307-10-2023 [facility] Procedure note [facility]10[facility]2023 Procedure [facility] 07-16-2022 NotePap Smear Specimen AdequacyApril 2022 1:29pmComment. Satisfactory for evaluation. Endocervical and/or squamous metaplasticcells (endocervical component)are present.[facility] A#[id number] Memorial HospitalComment on above:Satisfactory for evaluation. Endocervical and/or squamous metaplasticcells (endocervical component)are present.07-16-2022 NotePap Smear Specimen AdequacyApril 2022 1:29pmComment.Satisfactory for evaluation. Endocervical and/or squamous metaplasticcells (endocervical component)are present.[facility] A#[id number] Memorial Hospital Comment on above:Satisfactory for evaluation. Endocervical and/or squamous metaplasticcells (endocervical component)are present.07-16-2022 NotePap Smear Specimen AdequacyApril 2022 1:29pmComment.Satisfactory for evaluation. Endocervical and/or squamous metaplasticcells (endocervical component)are present.[facility] A#[id number] Memorial HospitalComment on above: Satisfactory for evaluation. Endocervical and/or squamous metaplasticcells (endocervical component)are present.07-16-2022 NotePap Smear Specimen Adequacy July 16, 2022 1:29pmComment.Satisfactory for evaluation. Endocervical and/or squamous metaplasticcells (endocervical component)are present.[facility] A#[id number] Memorial HospitalComment on above:Satisfactory for evaluation. Endocervical and/or squamous metaplasticcells (endocervical component)are present.07-16-2022 NotePap Smear Specimen AdequacyApril 2022 1:29pmComment.Satisfactory for evaluation. Endocervical and/or squamous metaplasticcells (endocervical component)are present.[facility] A#[id number] Memorial HospitalComment on above:Satisfactory for evaluation. Endocervical and/or squamous metaplasticcells (endocervical component)are present.08-22-2021 NoteHNO ID: [id number] Author: Demetrio Hancock MD Service: ? Author Type: Physician Type: [...] entered by the nurse and reviewed by me Nursing Notes: Estephania Carvalho LPN 06/24/2021 3:39 [...] loss of s (more content not included)... [facility]05-06-2022 Miscellaneous Notes* Telephone Encounter - Estephania Carvalho LPN - 08/01/2021 2:55 PM EDT Patient was not seen in General Surgery, appointment was cancelled. * Telephone Encounter - Mariam Olson - 08/01/2021 12:20 PM EDT Referring office calling for office notes from date of service on 06/[address] Enid Morrissey Office. As I can not tell for sure if patient was seen or not. [facility] Note* Estephania Carvalho LPN - 06/24/2021 3:33 PM EDT REVIEW OF SYSTEMS: General: The patient notes fatigue, denies weight loss, denies weight gain, denies feeling hot, anddenies feelings of cold. Eyes: The patient denies [...] back pain/injury, denies back problems, denies sciatica, deniesknee/foot trouble, denies arthritis, or denies gout. When was patient's last Mammogram screening? 2021 Last Colonoscopy: none Estephania Carvalho LPN documented in [facility]22 NotePap Smear Specimen AdequacyFebruary 2021 3:20pmCommentSatisfactory for evaluation. Endocervical and/or squamous metaplasticcells (endocervical component)are present.[facility] A#[id number] Memorial Hospital Work Phone: Comment on above:Satisfactory for evaluation. Endocervical and/or squamous metaplasticcells (endocervical component)are present.05-19-2021 NotePap Smear Specimen AdequacyFebruary 2021 3:20pm CommentSatisfactory for evaluation. Endocervical and/or squamous metaplasticcells (endocervical component)are present.[facility] INTER[facility]ACED A#[id number] Work Phone: Comment on above:Satisfactory for evaluation. Endocervical and/or squamous metaplasticcells (endocervical component)are present.Evaluation noteNo assessment information availableWTriHealth Work Phone: Evaluation note* Diagnosis APPOINTMENT CANCELLED- Primary [facility] this [facility] Diagnosis Onset Date Resolution Status Irritant contact dermatitis due to plant acute [facility] Work Phone: Evaluation note* Diagnosis Onset Date Resolution Status Constipation chronic Early satiety chronic Flatulence/gas pain/belching chronic [facility] Work Phone: Evaluation note* Diagnosis Onset Date Resolution Status Climacteric acute Encounter for routine gynecological examination noneactive [facility] Work Phone: Evaluation note* Diagnosis Onset Date Resolution Status Climacteric acute Encounter for routine gynecological examination noneactive Early satiety chronic Flatulence/gas pain/belching chronic IBS (irritable bowel syndrome) chronic [facility] Work Phone: History and physical note Author Adam Friend [facility] October 05, 2022 10:23am Note Date/Time October 05, 2022 10:2 3am [facility] Medical Records Department [address] [place] [address] History & Physical Exam 10/05/22 1023 MR#: [id number] Acct: [id number] Name: PRAFUL KAHN Rep #:[id number] : 1975 47 From: Adam Friend DO PCP: YOON RAE [place] [place] [address] History and Physical Date of Admission: 10/05/22 Chief Complaint: early satiety, bloating, belching, flatus, constipation Details: PRAFUL KAHN, is a 47 F who presents to the office today to establish with GIfor approx 6 mos of early satiety, bloating, gas, flatus. Gets full very quickly, now only eating once a day but has gained weight No nausea or vomiting never used to have burping and flatus Omeprazole had decreased burping Sore throat every morning, not relieved with addition of omeprazole 40 mg daily 4 wks ago reflux when exercising especially when doing pushups, which is new too cold beverages feel like they stick in lower esophagus Has always tended toward constipation, usually managed by taking daily probioticand having a smoothie, but now unable to tolerate smoothie due to early satiety,so constipation has worsened. Has had a few episodes of fecal urgency in the last couple of weeks, stool was soft but not diarrhea. No assoc pain. she has MS, Reynaud's, lupus, Sjogren's MS stable x 8 yrs, Ocrevus infusions 2x per yr plaquenil for lupus dry eye and dry mouth some joint pains, this is typical for her each Spring No prior EGD or colonoscopy ROS Const Constitutional: Positive for fatigue and weight change ENT ENT: Positive for difficulty swallowing Gastro GI: Positive for abdominal pain, bloating, change in bowel habits, constipation,heartburn, difficulty swallowing and excessive flatus; No belching, change in stool character, coffee ground emesis, cramping, diarrhea, feeling full early, incontinent of stools, Vomiting blood/hematemesis,Blood in stool, loose stools, Black,tarry stools, nausea/dyspepsia, pain with swallowing, vomiting or other Musc Musculoskeletal: Positive for joint pain, stiffness and restless legs Skin Skin: No yellowing of the eye or itchy eyes Neuro Neurology: Positive for restless legs Psych Psychiatric: No anxiety and No depression Endo Endocrine: Positive for fatigue and weight change Aller/Imm Allergy/Immunologic: No itchy eyes Demetrius/Lymp Hematologic/Lymphatic: No easy bleeding or easy bruising Exam Const General: cooperative, healthy appearing and comfortable Nutritional Appearance: average body habitus Orientation: alert, awake and oriented x3 HENMT Head: normal to inspection Eyes Sclera: sclerae normal Neck Neck: normal visual inspection Resp Effort & Inspection: normal respiratory effort GI Inspection: normal to inspection Palpation: soft, no hepatosplenomegaly, no masses and tender in the epigastrum General: bladder normal to palpation Bimanual Exam- Vagina & Uterus: bladder normal to palpation Skin General: no rashes or lesions noted Psych Mood: congruent mood Quality Reporting Tobacco Screening ([facility] 138) Smoking Status: Never smoker Assessment and Plan Assessment and Plan (1) Early satiety: Status: Chronic Plan: 47 yr old female with early satiety, bloating, belching, flatus, constipation. She has MS, SLE, Sjogren's, Raynaud's. Gastric emptying study, discussed possible treatments if she has gastroparesis including metoclopramide, botulinum toxin, referral to [facility] EGD and colonoscopy Labs today including eval for other autoimmune conditions celiac, IBD Going to [facility] in early August Consider course of antibiotic such as doxycycline or xifaxan (2) Flatulence/gas pain/belching: Status: Chronic Plan: see above (3) Constipation: Status: Chronic Plan: see above Orders: Orders Gastric Emptying Study 07/27/22 K59.00 - Constipation, unspecified, R14.0 - Abdominal distension (gaseous), R68.81 - Early satiety CRP 07/27/22 K59.00 - Constipation, unspecified, R14.0 - Abdominal distension (gaseous), R68.81 - Early satiety Erythrocyte Sed Rate 07/27/22 K59.00 - Constipation, unspecified, R14.0 - Abdominal distension (gaseous), R68.81 - Early satiety Calprotectin, Stool 07/27/22 K59.00 - Constipation, unspecified, R14.0 - Abdominal distension (gaseous), R68.81 - Early satiety Celiac Disease Profile 07/27/22 K59.00 - Constipation, unspecified, R14.0 - Abdominal distension (gaseous), R68.81 - Early satiety Comprehensive Metabolic Profil 07/27/22 K59.00 - Constipation, unspecified, R14.0 - Abdominal distension (gaseous), R68.81 - Early satiety CBC W/Diff, Automated 07/27/22 K59.00 - Constipation, unspecified, R14.0 - Abdominal distension (gaseous), R68.81 - Early satiety Stool Lactoferrin/WBC 07/27/22 K58.9 - Irritable bowel syndrome without diarrhea, K59.00 - Constipation, unspecified, R14.0 - Abdominal distension (gaseous), R68.81 - Early satiety Immunoglobulins G/A/M/E 07/27/22 K59.00 - Constipation, unspecified, R14.0 - Abdominal distension (gaseous), R68.81 - Early satiety Miscellaneous Lab Procedure 07/27/22 K59.00 - Constipation, unspecified, R14.0 -Abdominal distension (gaseous), R68.81 - Early satiety Medications: New omeprazole 40 mg PO DAILY 90 caps 1RF I have examined the patient and the H&P has been reviewed. There are no clinicalchanges since date of exam. 10/05/22 1023 <Electronically signed by Adam Geiger DO> Cosigner Signature (if applicable): CC: YOON RAE; Adam Geiger DO~ Signed [facility] Work Phone: Reason for referral (narrative)No reason for referral information availableWTriHealth Work Phone: Summary Purpose Family History No Family History Records Found Relationship Condition Age at Onset Recorded Date/T ty Not Specified Malignant neoplasm Unknown Relationship Condition Age at Onset Recorded Date/T ty uncle Malignant neoplasm Unknown Advance Directives No Advanced Directives Records Found Advance Directive Response Recorded Date/ Time Advance Directives No August 20 4 7:35am Living Will No November 30, 2 015 10:54am Power of Infection Preventionist No November 30, 2014 10:54am Advance Directive Response Recorded Date/ Time Advance Directives No August 20 4 7:35am Living Will No October 01, 2022 5 :02pm Power of Infection Preventionist No October 01, 2022 5:02pm Advance Directive Response Recorded Date/ Time Advance Directives No August 20 4 6:35am Living Will No October 01, 2022 4 :02pm Power of Infection Preventionist No October 01, 2022 4:02pm Advance Directive Response Recorded Date/ Time Living Will No August 17, 2023 1 0:55am Do you have a Healthcare Power of Infection Preventionist? 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 Complaint ABNORMAL MAMMO MS Chief Complaint Consult INT LABS Reason for Visit Constipation Early satiety Flatulence/gas pain/belching Chief Complaint Consult INT LABS EARLY SATIETY SCREENING Reason for Visit Constipation Early satiety Flatulence/gas pain/belching Chief Complaint Consult INT LABS EARLY SATIETY SCREENING ABD DISTENSION Reason for Visit Constipation Early satiety Flatulence/gas pain/belching Chief Complaint 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) Reason for Visit Climacteric Encounter for routine gynecological examination Chief Complaint 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 Reason for Visit Climacteric Encounter for routine gynecological examination Chief Complaint 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 6 MO FU Reason for Visit Climacteric Encounter for routine gynecological examination Early satiety Flatulence/gas pain/belching IBS (irritable bowel syndrome) Chief Complaint Admit Date 6 M FU March 31, 2024 3: 27pm ANNUAL May 16, 2024 3:25pm Reason for Visit Admit Date Early satiety March 31, 2024 3: 27pm Flatulence/gas pain/belching March 3:27pm IBS (irritable bowel syndrome) March 312024 3:27pm Constipation March 31, 2024 3: 27pm Climacteric May 16, 2024 3:25pm Overweight (BMI 25.0-29.9) April 3:25pm Women's annual routine gynecological exa mination May 16, 2024 3:25pm Chief Complaint Admit Date 6 M FU March 31, 2024 3: 27pm ANNUAL May 16, 2024 3:25pm MEASLES ITIER July 05, 2024 8:31 am Chief Complaint Admit Date ANNUAL May 16, 2024 3:25pm MEASLES ITIER July 05, 2024 8:31 am SCREENING September 04, 2024 3:26p m Reason for Visit Admit Date Climacteric May 16, 2024 3:25pm Overweight (BMI 25.0-29.9) April 3:25pm Women's annual routine gynecological exa mination May 16, 2024 3:25pm Chief Complaint Admit Date MEASLES NORI July 05, 2024 8:31 am SCREENING September 04, 2024 3:26p m 6 M FU October 16, 2024 3:34 pm Additional Source Comments INFORMATION SOURCE (unrecogn ized section and content) DATE CREATED AUTHOR 01/04/2021 [facility] [place] DATE CREATED AUTHOR AUTHOR'S ORGANIZ ATION 09/15/2021 [facility] DATE CREATED AUTHOR AUTHOR'S ORGANIZ ATION 06/28/2023 [facility] ([place]) DATE CREATED AUTHOR AUTHOR'S ORGANIZ ATION 10/18/2024 [facility] Goals (unrecognized section and content) Goals may be documented in a n alternate sectionGoals may be documented in an alternate sectionGoals may be documented in an alternate sectionGoals may be documented in an alternate sectionGoals may be documented in an alternate sectionGoals may be documented in an alternate sectionGoals may be documented in an alternate sectionGoals may be documented in an alternate sectionGoals may be documented in an alternate sectionGoals may be documented in an alternate sectionGoals may be documented in an alternate sectionGoals may be documented in an alternate sectionGoals may be documented in an alternate sectionGoals may be documented in an alternate sectionGoals may be documented in an alternate sectionGoals may be documented in an alternate sectionGoals may be documented in an alternate sectionGoals may be documented in an alternate sectionGoals may be documented in an alternate section Source Comments (unrecognize d section and content) In the event this informatio n is protected by the Federal Confidentiality of Alcohol and Drug Abuse Patient Records regulations: The Federal rules restrict any use of the information to criminally investigate or prosecute any alcohol or drug abuse patient.[facility] CenterIn the event this information is protected by the Federal Confidentiality of Alcohol and Drug Abuse Patient Records regulations: The Federal rules restrict any use of the information to criminally investigate or prosecute any alcohol or drug abuse patient.[facility] Reason for Visit (unrecogniz ed section and content) Reason Comments Appointment Cancelled Reason Comments Release Of Medical Records Care Teams (unrecognized sec tion and content) Student Support Advisor Relationship Specialty Start Date End Date Yoon Rae MD [address] [place] [address] PCP - General 04/24/09 Student Support Advisor Relationship Specialty Start Date End Date Yoon Rae MD [address] [place] [address] PCP - General 04/24/09 Serina Sandoval [phone] [address] Referring RADIO ARTIST 05/27/21 Team Status: Active Member Role Status Dates YOON RAE Family Provider Active Team Status: Inactive Member Role Status Dates Dr. Serina Sandoval DO Attending Provider Active Team Status: Active Member Role Status Dates YOON RAE Family Provider Active YOON RAE Primary Care Provider Active Team Status: Inactive Member Role Status Dates Cris Shafer INCINERATOR PLANT LABORER, INCINERATOR PLANT LABORER-C Attending Provider Active Team Status: Inactive Member Role Status Dates RABIA TERRELL Primary Care Provider Active Cris Shafer INCINERATOR PLANT LABORER, INCINERATOR PLANT LABORER-C Attending Provider, Wolfgang west Provider Active Team Status: Active Member Role Status Dates RABIA TERRELL Primary Care Provider Active Cris Shafer INCINERATOR PLANT LABORER, INCINERATOR PLANT LABORER-C Attending Provider Active Team Status: Inactive Member Role Status Dates RABIA TERRELL Primary Care Provider Active Cris Shafer INCINERATOR PLANT LABORER, INCINERATOR PLANT LABORER-C Attending Provider Active Team Status: Inactive Member Role Status Dates RABIA TERRELL Primary Care Provider Active Dr. Martha Guzman DO Attending Provider Active Team Status: Inactive Member Role Status Dates YOON, RABIA Primary Care Provider Active Dr. Serina Sandoval DO Attending Provider, Referrin g Provider Active Team Status: Active Member Role Status Dates RABIA TERRELL Primary Care Provider, Referring Provide r Active Dr. Adam Geiger DO Attending Provider, Other Prov ider Active Team Status: Inactive Member Role Status Dates RABIA TERRELL Primary Care Provider, Referring Provide r Active Dr. Adam Geiger DO Attending Provider Active Team Status: Active Member Role Status Dates YOON RABIA Family Provider Active Judith Ramos INCINERATOR PLANT LABORER, INCINERATOR PLANT LABORER-C Primary Care Provider Active Team Status: Inactive Member Role Status Dates Judith Ramos INCINERATOR PLANT LABORER, INCINERATOR PLANT LABORER-C Attending Provider Active Team Status: Inactive Member Role Status Dates CHARMAINE NAVAS MD Attending Provider Active Team Status: Inactive Member Role Status Dates Judith Ramos INCINERATOR PLANT LABORER, INCINERATOR PLANT LABORER-C Primary Care Provider, Attendi ng Provider Active Team Status: Inactive Member Role Status Dates Judith Ramos INCINERATOR PLANT LABORER, INCINERATOR PLANT LABORER-C Attending Provider, Referring Provider Active RABIA TERRELL Primary Care Provider Active Team Status: Inactive Member Role Status Dates Dr. Adam Geiger DO Attending Provider Active Team Status: Inactive Member Role Status Dates COLLETTE PARKER MD Attending Provider Active Team Status: Active Member Role Status Dates YOON RAE Family Provider Active COLLETTE PARKER MD Primary Care Provider Active Team Status: Active Member Role Status Dates COLLETTE PARKER MD Primary Care Provider Active S tart: February 29, 2024 [facility] Attending Provider Active Start: February 29, 2024 Team Status: Inactive Member Role Status Dates COLLETTE PARKER MD Primary Care Provider Active S tart: February 29, 2024 End: February 29, 2024 Dr. Philippe Gonzalez MD Attending Provider Active Start: February 29, 2024 End: February 29, 2024 Team Status: Inactive Member Role Status Dates Dr. Adam Geiger DO Attending Provider Active Start: March 31, 2024 End: March 31, 2024 COLLETTE PARKER MD Primary Care Provider Active S tart: March 31, 2024 End: March 31, 2024 COLLETTE PARKER MD Referring Provider Active Star t: March 31, 2024 End: March 31, 2024 Team Status: Inactive Member Role Status Dates COLLETTE HINOJOSAAN , MD Primary Care Provider Active S tart: May 16, 2024 End: May 16, 2024 COLLETTE PARKER MD Referring Provider Active Star t: May 16, 2024 End: May 16, 2024 TERRY Casey Attending Provider Active Start: May 16, 2024 End: May 16, 2024 Team Status: Inactive Member Role Status Maeve PARKER MD Primary Care Provider Active S tart: May 17, 2024 End: May 17, 2024 COLLETTE PARKER MD Attending Provider Active Star t: May 17, 2024 End: May 17, 2024 COLLETTE PARKER MD Referring Provider Active Star t: May 17, 2024 End: May 17, 2024 Team Status: Inactive Member Role Status Maeve PARKER MD Primary Care Provider Active S tart: June 24, 2024 End: June 24, 2024 COLLETTE PARKER MD Attending Provider Active Star t: June 24, 2024 End: June 24, 2024 COLLETTE PARKER MD Referring Provider Active Star t: June 24, 2024 End: June 24, 2024 Team Status: Inactive Member Role Status Maeve PARKER MD Primary Care Provider Active S tart: July 05, 2024 End: July 05, 2024 RABIA TERRELL Attending Provider Active Start: A pri2024 End: July 05, 2024 Team Status: Active Member Role Status Maeve PARKER MD Primary Care Provider Active Team Status: Inactive Member Role Status Maeve PARKER MD Primary Care Provider Active S tart: July 15, 2024 End: July 15, 2024 Out of [facility] Doctor Attending Provider Active Sta rt: July 15, 2024 End: July 15, 2024 Team Status: Inactive Member Role Status Maeve PARKER MD Primary Care Provider Active S tart: September 04, 2024 End: September 04, 2024 TERRY Casey Attending Provider Active Start: September 04, 2024 End: September 04, 2024 TERRY Casey Referring Provider Active Start: September 04, 2024 End: September 04, 2024 Team Status: Active Member Role Status Dates COLLETTE PARKER MD Primary Care Provider Active S tart: September 07, 2024 Dr. Philippe Gonzalez MD Attending Provider Active Start: September 07, 2024 Dr. Philippe Gonzalez MD Referring Provider Active Start: September 07, 2024 Team Status: Inactive Member Role Status Dates COLLETTE PARKER MD Primary Care Provider Active S tart: September 07, 2024 End: September 07, 2024 Dr. Philippe Gonzalez MD Attending Provider Active Start: September 07, 2024 End: September 07, 2024 Dr. Philippe Gonzalez MD Referring Provider Active Start: September 07, 2024 End: September 07, 2024 Team Status: Active Member Role/Relationship Status Dates Out of Town Doctor Primary Care Provider Active Team Status: Inactive Member Role/Relationship Status Dates COLLETTE PARKER MD Primary Care Provider Active S tart: June 24, 2024 End: June 24, 2024 COLLETTE PARKER MD Attending Provider Active Star t: June 24, 2024 End: June 24, 2024 COLLETTE PARKER MD Referring Provider Active Star t: June 24, 2024 End: June 24, 2024 Team Status: Inactive Member Role/Relationship Status Dates COLLETTE PARKER MD Primary Care Provider Active S tart: July 05, 2024 End: July 05, 2024 RABIA TERRELL Attending Provider Active Start: A pri2024 End: July 05, 2024 Team Status: Inactive Member Role/Relationship Status Dates COLLETTE PARKER MD Primary Care Provider Active S tart: July 15, 2024 End: July 15, 2024 Out of [facility] Doctor Attending Provider Active Sta rt: July 15, 2024 End: July 15, 2024 Team Status: Inactive Member Role/Relationship Status Dates COLLETTE PARKER MD Primary Care Provider Active S tart: September 04, 2024 End: September 04, 2024 TERRY Casey Attending Provider Active Start: September 04, 2024 End: September 04, 2024 TERRY Casey Referring Provider Active Start: September 04, 2024 End: September 04, 2024 Team Status: Inactive Member Role/Relationship Status Dates COLLETTE PARKER MD Primary Care Provider Active S tart: September 07, 2024 End: September 07, 2024 Dr. Philippe Gonzalez MD Attending Provider Active Start: September 07, 2024 End: September 07, 2024 Dr. Philippe Gonzalez MD Referring Provider Active Start: September 07, 2024 End: September 07, 2024 Team Status: Inactive Member Role/Relationship Status Dates COLLETTE PARKER MD Referring Provider Active Star t: October 16, 2024 End: October 16, 2024 Dr. Adam Geiger DO Attending Provider Active Start: October 16, 2024 End: October 16, 2024 Out of [facility] Doctor Primary Care Provider Active Start: October 16, 2024 End: October 16, 2024 FOR RECORDS PERTAINING TO PATIENTS WHO ARE [...] BE BASED ON THE PRIMARY CLINICAL RECORDS. [facility] [employer] provides no warranty or guarantee of the accuracy or completeness of information in this document.
[2024-12-30 10:36] LABS: Hematocrit 40.5 % (37-47); Hemoglobin 13.5 g/dL (12.0-15.0); Immature Granulocytes Count 0.030 X10^3/uL (0.0-0.0); Mean Corp Hgb Conc 33.3 g/dL (32-36); Mean Corpuscular Volume 93.3 fL (81-99); Mean Platelet Vol. 10.6 fl (6.2-12.0); NRBC Flagged by Analyzer 0 % (0-5); Platelet Count 382 K/mm3 (150-450); RBC Distribution Width CV 12.0 % (11.6-14.6); RBC Distribution Width SD 41.4 fl (35.1-43.9); Red Blood Count 4.34 M/mm3 (4.2-5.4); White Blood Count 6.5 K/mm3 (4.4-11.0)
[2024-12-30 11:04] LABS: AST(SGOT) 20 U/L (<=31); Alanine Aminotransfer ALT/SGPT 19 U/L (<=34); Albumin, Serum 4.6 g/dL (3.5-5.0); Alkaline Phosphatase 72 U/L (35-104); Bilirubin, Direct 0.18 mg/dL (0.00-0.30); CRP < 3.00 mg/L (0.0-3.0); Globulin 2.6 g/dL (2.2-4.2)
[2024-12-30 13:29] LABS: Color, Urine Yellow (Yellow); Glucose, Dipstick Normal (Normal); Ketone-Dipstick Negative (Negative); Leukocyte Esterase-Dipstick 25 /ul (Negative); Nitrite-Dipstick Negative (Negative); Occult Blood-Urine Negative /ul (Negative); Protein-Dipstick 15 mg/dl (Negative); Specific Gravity, Urine 1.020 (1.002-1.030); Urine Bilirubin Dipstick Negative (Negative)
[2025-01-01 15:08] LABS: Anti-dsDNA Ab 3 IU/mL (0-9); PROEL- A/G Ratio 1.4 (0.7-1.7); PROEL- Albumin 4.2 g/dL (2.9-4.4); PROEL- Alpha-1 Globulin 0.2 g/dL (0.0-0.4); PROEL- Alpha-2 Globulin 0.7 g/dL (0.4-1.0); PROEL- Beta Globulin 1.1 g/dL (0.7-1.3); PROEL- Gamma Globulin 1.1 g/dL (0.4-1.8); PROEL- Globulin, Total 3.0 g/dL (2.2-3.9); PROEL- TOTAL PROTEIN 7.2 g/dL (6.0-8.5); PROEL-M-Spike Not Observed g/dL (Not Observed)
== END | disposition home or self-care (01) ==
LOC: LAB 09:06
PROVIDERS: Referring Provider Internal Medicine Rheumatology; Visit Provider Internal Medicine Rheumatology
DX: M35.01 Sjogren syndrome with keratoconjunctivitis (principal)
CPT/HCPCS: 36415; 80076; 81002; 82565; 84165; 85025; 85652; 86140; 86160; 86225; 86235

== ENCOUNTER → 2025-02-01 | Outpatient (CLI) | payer OTHER, SELFPAY ==
--- NOTE | 2025-02-01 15:34 | US_ITS ---
EXAM: US/Axilla - Left
== END | disposition home or self-care (01) ==
LOC: US 15:33
DX: R59.0 Localized enlarged lymph nodes (principal)
CPT/HCPCS: 76882

== ENCOUNTER → 2025-02-23 | Outpatient (CLI) | payer OTHER, SELFPAY ==
[2025-02-23 15:20] LABS: Mucous, Urine 0 SEEN /hpf (<or=2+); Red Blood Cells-Urine 0 SEEN /hpf (0-5); Squamous Epithelial Cells - UA 0 SEEN /hpf (5-10)
--- OUTSIDE RECORDS SUMMARY | 2025-02-23 15:24 | XMS RPT_ITS | CCD ---
Author Organization [facility] Care Team Providers Care Residential Collections Name Role Phone Yoon Rae MD Primary Care Provider Serina Sandoval Unavailable Gopi STODDARD, RICHI Head Attending Provider Hollis HEDDLE MACHINE OPERATOR, HEDDLE MACHINE OPERATOR-C Cris Veronica Attending Provider YOON RAE Primary Care Provider [phone] YOON RAE Referring Provider Friend, Dr. Medina Attending Provider [phone] FriendDr[address] Medina Other Provider Rachel HEDDLE MACHINE OPERATOR, HEDDLE MACHINE OPERATOR-C Judith Attending Provider Rachel HEDDLE MACHINE OPERATOR, HEDDLE MACHINE OPERATOR-C Judith Attending Provider [phone] Friend, Dr. Medina Attending Provider YOON RAE MD Attending Unavailable YOON RAE MD Primary Care Unavailable COLLETTE PARKER MD Primary Care Provider Health, Employee Attending Provider [phone] Philippe Gonzalez MD Attending Provider Friend Dr. Adam HENDRICKS Attending Provider COLLETTE PARKER MD Referring Provider [phone] Marifer NAIR-CRadha Attending Provider COLLETTE PARKER MD Attending Provider COLLETTE PARKER MD Primary Care Provider YOON RAE Attending Provider KEITH LINARES, COLLETTE Primary Care Provider KEITH LINARES, COLLETTE Referring Provider [facility] Doctor, Out of Attending Provider Unavailab franklyn Caicedo HEDDLE MACHINE OPERATOR-CRadha Referring Provider [phone] Lisa LINARES, Dr. Paez Attending Provider Lisa LINARES, Dr. Paez Referring Provider KEITH LINARES, COLLETTE Primary Care Provider [phone] KEITH LINARES, COLLETTE Attending Provider KEITH LINARES, COLLETTE Referring Provider Marifer NAIR-CRadha Attending Provider Fely HENDRICKS, Dr. Medina Attending Provider [facility] Doctor, Out of Primary Care Provider Luly silveira [facility] Doctor, Out of Primary Care Physician Bashir Mcguire MD, Dr. Qiu Attending Physician KEITH LINARES, COLLETTE Referring Provider [phone] Adam Geiger DO Attending Physician SHANKAR NOLEN MD Attending Physician SHANKAR NOLEN MD Referring Provider [phone] [facility] Doctor, Out of Referring Provider Unavailab Graham NAIR-Abbe Caceres Attending Physician KEITH, RALLIS Primary Care Unavailable BHAVANI DAMIAN Attending Unavailable KEITH, RALLIS Primary Care Unavailable Health, Employee Attending Unavailable BHAVANI DAMIAN Primary Care Unavailable BHAVANI DAMIAN Attending Unavailable BHAVANI DAMIAN Referring Unavailable KEITH, RALLIS Primary Care Unavailable Town Doctor, Out of Attending Unavailable Town Doctor, Out of Primary Care Unavailable Adam Geiger Attending Unavailable KEITH, RALLIMaco Referring Unavailable Meghan Salcedo Attending Unavailable KEITH, RALLIS Primary Care Unavailable Town Doctor, Out of Primary Care Unavailable [place] Doctor, Out of Referring Unavailable Abbe Hansen NP Attending Unavailable KEITH, RALLIS Primary Care Unavailable Adam Geiger Attending Unavailable KEITH, RALLIS Referring Unavailable KEITH, RALLIS Primary Care Unavailable Radha Caicedo Attending Unavailable KEITH, RALLIS Referring Unavailable Radha Caicedo Attending Unavailable Radha Caicedo Referring Unavailable KEITH, RALLIS Primary Care Unavailable Philippe Gonzalez Attending Unavailable Philippe Gonzalez Referring Unavailable KEITH, RALLIS Primary Care Unavailable SHANKAR NOLEN Attending Unavailable SHANKAR NOLEN Referring Unavailable [facility] Doctor, Out of Primary Care Unavailable KEITH, RALLIS Primary Care Unavailable Philippe Gonzalez Attending Unavailable KEITH, RALLIS Primary Care Unavailable KEITH, RALLIS Attending Unavailable KEITH, RALLIS Referring Unavailable KEITH, RALLIS Primary Care Unavailable KEITH, RALLIS Attending Unavailable KEITH, RALLIS Referring Unavailable Allergies Allergy Classification Reported Allergen(s) Allergy Type Date of Onset Reaction(s) Facility (20 sources) Morphine Drug Allergy 05-20-[facility] (1 source) Morphine Drug Allergy 01-07-2025 [facility] Repository Medications Current Medications Medication Drug Class(es) Dates Sig (Normalized) Sig (Original) [id number] 200 actuat albuterol 0.09 mg/actuat metered dose inhaler (2 sources) beta2-Adrenergic Agonist Start: 01-07-2025 Albuterol Sulfate 90 mcg/actuation HFA aerosol inhaler Active 2 NMA INHALATION EVERY 4-6 HOURS as needed for shortness of breath or wheezing 6.7 0 January 07, 2025 12:00am Complies with drug therapy Start: 01-07-2025 Albuterol Sulf ate 90 mcg/actuation HFA aerosol inhaler Active 2 NMA INHALATION EVERY 4-6 HOURS as needed for shortness of breath or wheezing 6.7 0 January 07, 2025 12:00am Complies with drug therapy amoxicillin 875 mg / clavulanate 125 mg oral tablet (2 sources) Penicillin-class Antibacterial Start: 01-07-2025 End: 01-14-2025 Amoxicillin-Pot Clavulanate 875-125 mg tablet Discontinued 1 {tbl} PO TWICE A DAY 14 7 0 January 07, 2025 12:00am January 13, 2025 12:00am January 14, 2025 12:11am Cyclosporine (4 sources) Calcineurin Inhibitor Immunosuppressant Start: 05-03-2022 Cyclosporine (Restasis) 0.05 % dropperette Active 1 NMA OPHTHALMIC Q12H July 29, 2021 12:00am Complies with drug therapy Start: 04-24-2009 take 1 drop(s) into the eye(s) twice daily cyclosporine(RESTASIS 0.05 % EYE DROPPERETTE) 1 drop each eye twice daily 0 04/24/2009 Active Comment on above: 1 drop each eye twic e daily Cyclosporine (Restasis) 0.05 % dropperette (18 sources) Start: 07-29-2021 Cyclosporine (Restasis) 0.05 % dropperette Active 1 NMA OPHTHALMIC Q12H July 29, 2021 12:00am Start: 07-29-2021 Cyclosporine ( Restasis) 0.05 % dropperette Active 1 DRP OPHTHALMIC Q12July 28, 2021 11:00pm Start: 07-29-2021 Cyclosporine ( [...] 2022 4:37pm ergocalciferol 1.25 mg oral capsule (15 sources) Provitamin D2 Compound Start: 10-01-2022 Ergocalciferol (Ida min D2) 1,250 mcg (50,000 unit) capsule Active 1250 ug PO .WEEKLY October 01, 2022 12:00am Complies with drug therapy Start: 04-18-2021 take 1 capsule by mo [facility] every week ergocalciferol 50,000 unit capsule (VITAMIN D2, DRISDOL) Take 50,000 Units by mouth one time a week. 0 04/18/2021 Active Comment on above: Take 50,000 Units by mouth one time a week. estradiol 1 mg oral tablet (2 sources) Estrogen Start: 01-07-2025 take 1 tablet by mouth once daily Estradiol 1 mg tablet Active 1 mg PO daily January 07, 2025 12:00am off 1 week; repeat cycle Complies with drug therapy Start: 01-07-2025 take 1 tablet by camacho th once daily Estradiol 1 mg tablet Active 1 mg PO daily January 07, 2025 12:00am off 1 week; repeat cycle Complies with drug therapy fluconazole 150 mg oral tablet (2 sources) Azole Antifungal Start: 08-14-2022 Fluconazole (Diflucan) 150 mg tablet Active 150 MG PO Q3D 2 August 14, 2022 12:00am hydroxychloroquine sulfate 200 mg oral tablet (20 sources) Antimalarial, Antirheumatic Agent Start: 08-16-2013 Hydroxychloroquine 200 MG tablet Active 20 mg PO DAILY August 16, 2013 12:00am Complies with drug therapy Start: 08-16-2013 take 20 mg by mouth [...] 12:00am Multivitamin With Iron 1 EACH tablet (7 sources) Start: 08-16-2013 take 1 tablet by mouth once daily Multivitamin With Iron 1 EACH tablet Active 1 NMA PO DAILY August 16, 2013 12:00am Complies with drug therapy Start: 08-16-2013 take 1 tablet by camacho th once daily Multivitamin With Iron 1 EACH tablet Active 1 NMA PO DAILY August 16, 2013 12:00am 10 ml ocrelizumab 30 mg/ml injection (17 sources) Start: 07-27-2022 Ocrelizumab (O crevus) 30 mg/mL solution Active 600 mg IV .2X PER YEAR July 27, 2022 12:00am 600 mg intravenously; twice a year Complies with drug therapy Start: 07-27-2022 Ocrelizumab (O crevus) 30 mg/mL solution Active 600 MG IV .2X PER YEAR July 27, 2022 12:00am 600 mg intravenously; twice a year Start: 07-27-2022 Ocrelizumab (O crevus) 30 mg/mL solution Active MG .Route July 27, 2022 12:00am twice a year progesterone 100 mg oral capsule (2 sources) Progesterone Start: 01-07-2025 take 1 capsule by mouth once daily Progesterone Micronized 100 mg capsule Active 200 mg PO DAILY January 07, 2025 12:00am Hormone replacement Complies with drug therapy Start: 01-07-2025 take 1 capsule by mo [facility] once daily Progesterone Micronized 100 mg capsule Active 200 mg PO DAILY January 07, 2025 12:00am Hormone replacement Complies with drug therapy rifAXIMin 550 mg oral tablet (20 sources) Rifamycin Antibacterial Start: 01-15-2025 take 1 tablet by mouth three times daily Start: 01-15-2025 take 1 tablet by camacho th three times daily Start: 05-19-2024 End: 01-15-2025 take 1 tablet by mouth three times [...] 17, 2022 12:00am November 18, 2022 12:05am Vibegron (3 sources) Start: 07-21-2025 take 1 tablet by camacho th once daily Vibegron (Gemtesa) 75 mg tablet Active 75 mg PO daily October 16, 2024 12:00am Complies with drug therapy Start: 10-16-2024 take 1 tablet by camacho th once daily Vibegron (Gemtesa) 75 mg tablet [...] 04/24/2009 Active Comment on above: biweekly amylase [id number] unt / lipase 11454 unt / protease [id number] unt delayed release oral capsule (16 sources) Start: 06-30-2023 End: 09-16-2023 Vllnsr-Lxcjjsks-Rd ylase (Creon) 36,000-114,000- 180,000 unit capsule,delayed release(DR/EC) Discontinued 3 NMA PO before meals 900 June 30, 2023 12:31pm September 16, 2023 8:26am take 3 capsules by mouth with meals and 1 capsule with snack, max 10 capsules per day. Start: 06-28-2023 End: 06-30-2023 take [id number] capsules by mouth three times daily at mealtime Uvjwmm-Qmaokdff-Blowhlp (Creon) 36,000-114,000- 180,000 unit capsule,delayed release(DR/EC) Discontinued [...] quinacrine 100 mg th ree times weekly escitalopram 10 mg oral tablet (2 sources) Serotonin Reuptake Inhibitor Start: 010 escitalopram oxalate(LEXAPRO 10 MG TAB) Take one(1) tablet daily. 0 05/21/2009 Active Comment on above: Take one(1) tablet d aily. 0.5 ml interferon beta-1a 0.088 mg/ml prefilled syringe (2 sources) Recombinant Human Interferon beta Start: 010 interferon beta-1a/albumin(REBIF 44 MCG/0.5 ML SUB-Q SYRINGE) three times weekly 0 04/24/2009 Active Comment on above: three times weekly lubiprostone 0.024 mg oral capsule (7 sources) Chloride Channel Activator Start: 024 End: 025 take 1 capsule by mouth twice daily Lubiprostone (Amitiza) 24 mcg capsule Discontinued 24 ug PO TWICE A DAY 120 60 2 September 15, 2023 12:00am March 31, 2024 4:36pm multivitamins w-minerals/lut(CENTRU M SILVER TAB) (2 sources) Start: 010 multivitamins w-minerals/lut(CENTRUM SILVER TAB) Take one(1) tablet daily. 0 04/24/2009 Active Comment on above: Take one(1) tablet d aily. norethindrone 0.35 mg oral tablet (2 sources) Start: 022 take 1 tablet by mouth once daily RHODA 0.35 mg tablet Take 1 tablet by mouth once daily. 0 06/09/2021 Active Comment on above: Take 1 tablet by [facility] once daily. nortriptyline 10 mg oral capsule (2 sources) Tricyclic Antidepressant Start: take 1 capsule by mouth once daily nortriptyline (PAMELOR) 10 mg capsule Take 10 mg by mouth once daily. 0 06/20/2021 Active Comment on above: Take 10 mg by mouth once daily. ocrelizumab (OCREVUS INTRAVENOUS) (2 sources) Start: ocrelizumab (OCREVUS INTRAVENOUS) Twice yearly 0 10/18/2019 Active Comment on above: Twice yearly omeprazole 40 mg delayed release oral capsule (20 sources) Proton Pump Inhibitor Start: 023 End: 024 take 1 capsule by mouth once daily Omeprazole 40 mg capsule,delayed release(DR/EC) Discontinued 40 mg PO DAILY 90 August 17, 2022 2:24pm September 15, 2023 3:46pm polysaccharide iron complex 150 mg oral capsule (2 sources) Start: iron polysaccharides complex(POLY-IRON 150 MG CAP) Take one(1) tablet daily. 0 05/09/2009 Active Comment on above: Take one(1) tablet d aily. predniSONE 10 mg oral tablet (20 sources) Start: 015 End: take 6 tablets by mouth once daily, [...] d aily. up to 3 times daily tenapanor 50 mg oral tablet (2 sources) Start: 02-01-2024 End: 03-31-2024 take 1 tablet by mouth once daily at dinner Tenapanor (Ibsrela) 50 mg tablet Discontinued 50 mg PO TWICE A DAY 60 February 01, 2024 1:00am March 31, 2024 4:37pm must administer immediately before first meal of day/breakfast and dinner Tenapanor (Ibsrela) 50 mg tablet (5 sources) [...] C 19-Fa-D3 (Nephronex-Sl) 1 EACH tablet,disintegrati ng (5 sources) Start: 08-16-2013 End: 04-05-2023 take 1 [...] except food] Episodic Benign neoplasm of uterus (7 sources) Uterine leiomyoma; Translations: [Leiomyoma of uterus, unspecified] 09-16-2023 Episodic Genitourinary symptoms and ill-defined conditions (2 sources) Mixed incontinence; Translations: [Mixed incontinence] Onset: 06-22-2023 Chronic Malaise and fatigue (2 sources) Other fatigue; Translations: [Other fatigue] Onset: 06-22-2023 Episodic Menopausal disorders (19 sources) Menopausal syndrome; Translations: [Menopausal and female climacteric states] 04-05-2023 Chronic Multiple sclerosis (20 sources) Multiple sclerosis; Translations: [Multiple sclerosis] Onset: 06-22-2023 07-27-2022 Chronic Other circulatory disease (17 sources) Raynaud's disease; Translations: [Raynaud's syndrome without gangrene] 07-27-2022 Chronic Other female genital disorders (7 sources) Abnormal uterine bleeding; Translations: [Abnormal uterine and vaginal bleeding, unspecified] 09-16-2023 Chronic Other gastrointestinal disorders (13 sources) Irritable bowel syndrome; Translations: [Irritable bowel syndrome without diarrhea] 04-29-2023 Chronic Other gastrointestinal disorders (2 sources) Irritable bowel syndrome without diarrhea; Translations: [Irritable bowel syndrome] 04-29-2023 Chronic Other gastrointestinal disorders (5 sources) Bloating symptom; Translations: [Abdominal distension (gaseous)] 07-27-2022 Episodic Other gastrointestinal disorders (20 sources) Constipation; Translations: [Constipation, unspecified] 07-27-2022 Episodic Other gastrointestinal disorders (5 sources) Constipation, unspecified; Translations: [Constipation, unspecified] 07-27-2022 Episodic Other gastrointestinal disorders (7 sources) Abdominal distension (gaseous); Translations: [Flatulence, eructation, and gas pain] 07-27-2022 Episodic Other gastrointestinal disorders (16 sources) Abdominal bloating; Translations: [Abdominal distension (gaseous)] 07-27-2022 Episodic Other nutritional; endocrine; and metabolic disorders (11 sources) Body mass index 25-29 - overweight; Translations: [Overweight] 05-17-2024 Episodic Other upper respiratory infections (4 sources) Upper respiratory infection; Translations: [Acute upper respiratory infection, unspecified] 01-07-2025 Episodic Residual codes; unclassified (20 sources) Early satiety; Translations: [Early satiety] 07-27-2022 Episodic Residual codes; unclassified (7 sources) Early satiety; Translations: [Early satiety] 07-27-2022 Episodic Residual codes; unclassified (7 sources) History of endometrial ablation; Translations: [Other specified postprocedural states] 09-16-2023 Episodic Systemic lupus erythematosus and connective tissue disorders (20 sources) Systemic lupus erythematosus; Translations: [Systemic lupus erythematosus, unspecified] Onset: 06-22-2023 07-27-2022 Chronic Unclassified (1 source) APPOINTMENT CANCELLED Past or Other Problems Problem Classification Problem Date Documented Da te Episodic/Chronic Abdominal pain (2 sources) Abdominal pain; Translations: [Unspecified abdominal pain] Onset: 06-01-2009 06-01-2009 Episodic Genitourinary symptoms and ill-defined conditions (1 source) Dysuria; Translations: [Dysuria] Onset: 07-19-2024 Episodic Immunizations and screening for infectious disease (1 source) Encounter for screening for other viral diseases; Translations: [Encounter for screening for other viral diseases] Onset: 07-11-2024 Episodic Other screening for suspected conditions (not mental disorders or infectious disease) (2 sources) Encounter for screening mammogram for malignant neoplasm of breast; Translations: [Encounter for screening for other suspected endocrine disorder] Onset: 07-17-2024 Episodic Results Test Name Value Interpretation Reference Range Facility Axilla - Lefton 02-01-2025 Axilla - Left [facility] [address] [place] [address] Axilla - Left MR#: [id number] Acct: [id number] Name: PRAFUL KAHN Rep #: [id number] : 1975 F 49 From: Ernesto singer MD PCP: YOON RAE Status: REG CLI Study: Axilla - Left Date of Exam: 02/01/25 Exam# [id number] Ordering Dr: YOON RAE EXAM: Left axillary lymph nodes. CLINICAL HISTORY: History of left axillary adenopathy. COMPARISON: May 30, 2021. TECHNIQUE: Targeted imaging of the left axilla was obtained. FINDINGS: There is a 1.2 cm 1 cm 0.5 cm benign-appearing lymph node in the right axilla. 1.1 cm x 0.7 cm x 0.4 cm benign-appearing lymph node. US/Axilla - Left IMPRESSION: There are 2, small benign-appearing right axillary lymph nodes. Reading Location: [id number] CC: YOON RAE Anthropological Linguist: Signed Normal [facility] Visit Reporton 1 Urgent Care Visit Report [facility] [address], [address] [place] [address] OFFICE VISIT Date of Service: 01/07/25 MR#: [id number] Acct: [id number] Name: PRAUFL KAHN Rep #: [id number] : 1975 Provider: TERRY reagan Age/Sex: 49/F Location: [facility] Status: Signed Intake Vital Signs 05/16/24 15:27 01/07/25 13:25 Height 5 ft 3 in BP 130/72 H Blood Pressure Location Lt brachial Position Sitting Pulse 88 Pulse Source Monitor Temp 97.9 F Temp Source Oral Pulse Oximetry (%) 100 Oxygen Delivery Method room air Intake Visit Reasons: SORE THROAT, CONGESTION, EARS CLOGGED, Chief Complaint: Congestion, Sore Throat Accompanied by: Self Allergies morphine Allergy (Verified 01/07/25 13:20) Hives Medications ???Medication ???Instructions ???Recorded ???Confirmed ???Type hydroxychloroquine 200 mg tablet 20 mg PO DAILY 08/16/13 01/07/25 H istory multivitamin with iron 1 ea PO DAILY 08/16/13 01/07/25 Hi story cyclosporine 0.05 % eye drops in a 1 drp ophthalmic (eye) Q12H 06/1701/07/25 History dropperette (Restasis) ocrelizumab 30 mg/mL intravenous 600 mg IV .2X PER YEAR 07/27/22 History solution (Ocrevus) ergocalciferol (vitamin D2) 1,250 1,250 mcg PO .WEEKLY 10/01/2203/22 History mcg (50,000 unit) capsule rifaximin 550 mg tablet (Xifaxan) 550 mg PO TID #180 TABLETS 01/07/25 Rx vibegron 75 mg tablet (Gemtesa) 75 mg PO QDAY 10/16/24 01/07/25 Hi story albuterol sulfate 90 mcg/actuation 2 puff inhalation Q4-6H PRN 12/2701/07/25 Rx aerosol inhaler shortness of breath or wheezing #6.7 grams amoxicillin 875 mg-potassium 1 tab PO BID 7 days #14 tabs 01/0701/07/25 Rx clavulanate 125 mg tablet estradiol 1 mg tablet 1 mg PO QDAY 01/07/25 01/07/25 His tory progesterone micronized 100 mg 200 mg PO DAILY Hormone replacemen t 01/07/25 01/07/25 History capsule Nurse's Note: Sore throat, cough, coughing up mucus, SOB, losing voice, loss of hearing. X 1 week 2 days. Taking Advil and Tylenol. 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 She has been taking Advil and Tylenol. She expresses concerns regarding duration of her symptoms. She states her daughter has similar symptoms. ROS Const Constitutional: No body ache, chills, fatigue, fever(s), headache(s) or change in appetite Eyes Eyes: No blurry vision, change in vision, double vision, irritation, discharge, vision loss, dry eyes, bulging eyes, floaters, visual disturbances, eye pain, Light sensitivity, spots in vision, tunnel vision or other ENT ENT: No ear or mastoid pain, ear discharge, ear pressure, tinnitus, dizziness/vertigo, nosebleed/epistaxis, nasal congestion, nose pain, sinus pressure, sinus pain, nasal discharge, post nasal drip, headache(s), facial pain, dental pain, difficulty swallowing, bad breath, hoarseness, lip swelling, mouth lesions, mouth pain, neck pain, sore throat, tongue swelling or throat swelling Resp Respiratory: No cough, change in phlegm color, chest congestion, hemoptysis, pain on inspiration, shortness of breath, pain with cough, stridor or wheezing Cardio Cardiology: No chest pain at rest, chest pain with exertion, shortness of breath, dyspnea on exertion or lightheadedness Gastro GI: No abdominal pain, change in bowel habits or difficulty swallowing Genitourinary-Female: No burning urination or urinary frequency Musc Musculoskeletal: No joint pain or neck pain Skin Skin: No rash Neuro Neurology: No headache(s) or visual disturbances Psych Psychiatric: No change in appetite Endo Endocrine: No fatigue Aller/Imm Allergy/Immunologic: No lip swelling, throat sw (more content not included)... Normal [facility] Anti-dsDNA Abon 01-01-2025 ANTI-DNA (DS)AB 3 IU/mL Normal 0-9 [facility] Comment on above: Result Comment: Nega tive <5 Equivocal 5 - 9 Positive >9 Performed at: [facility] [id number] Center Line Cutter Operator: Ej Landers PhD, Phone: [phone] Performed By: #### L 100.0100, L3200.1200 #### [facility] [address] [place], [place], [id number] Antiextractable Nug Agon SUPERVISOR LAMP SHADES Ab <0.2 Normal 0.0-0.9 [facility] Comment on above: Result Comment: AMENDED REPORT 01/01/25 150 SUPERVISOR LAMP SHADES Ab previously reported as: Test not performed Performed By: #### L 3410.1110, L400.2010, L3100.3450, L101.9900, L100.0100, L501.1105, L3100.5500, L500.3400, L3100.5800, L501.6710, L3100.5700 ####[facility] [address] [place], [place], [id number] LE Ab <0.2 Normal 0.0-0.9 [facility] Comment on above: Result Comment: AMENDED REPORT 01/01/25 150 LE Ab previously reported as: Test not performed Performed By: #### L 3410.1110, L400.2010, L3100.3450, L101.9900, L100.0100, L501.1105, L3100.5500, L500.3400, L3100.5800, L501.6710, L3100.5700 ####[facility] [address] [place], [address] Complement C3on 01-01-2025 COMP C3 131 mg/dL Normal 82-167 [facility] Comment on above: Result Comment: Perf ormed at: - [facility] [address] [id number] Center Line Cutter Operator: Ej Landers PhD, Phone: [phone] Performed By: #### L 100.0100, L3200.1200 #### [facility] [address] [place], [address] Complement C4on 01-01-2025 COMPLEMENT, C4 22 mg/dL Normal 12-38 [facility] Comment on above: Performed By: #### L 100.0100, L3200.1200 #### [facility] [address] [place], [address] Protein Electroph, Son 01-01 Albumin [Mass/Vol] 4.2 g/dL Normal 2.9-4.4 [facility] Comment on above: Performed By: #### L 100.0100, L3200.1200 #### [facility] [address] [place], [address] Albumin/Globulin [Mass ratio] 1.4 {ratio} Normal 0.7-1.7 [facility] Comment on above: Performed By: #### L 100.0100, L3200.1200 #### [facility] [address] [place], [address] ALPHA-1 GLOBUL 0.2 g/dL Normal 0.0-0.4 [facility] Comment on above: Performed By: #### L 100.0100, L3200.1200 #### [facility] [address] [place], [address] ALPHA-2 GLOBUL 0.7 g/dL Normal 0.4-1.0 [facility] Comment on above: Performed By: #### L 100.0100, L3200.1200 #### [facility] [address] [place], [address] BETA GLOBULIN 1.1 g/dL Normal 0.7-1.3 [facility] Comment on above: Performed By: #### L 100.0100, L3200.1200 #### [facility] [address] [place], [address] GAMMA GLOBULIN 1.1 g/dL Normal 0.4-1.8 [facility] Comment on above: Performed By: #### L 100.0100, L3200.1200 #### [facility] [address] [place], [address] Globulin (S) [Mass/Vol] 3.0 g/dL Normal 2.2-3.9 [facility] Comment on above: Performed By: #### L 100.0100, L3200.1200 #### [facility] [address] [place], [address] INTERPRETATION Comment Normal . [facility] Comment on above: Result Comment: Prot ein electrophoresis scan will follow via computer, mail, or occasional babysitter delivery. Performed By: #### L 100.0100, L3200.1200 #### [facility] [address] [place], [address] M-SPIKE Not Observed Normal Not Observed [facility] Comment on above: Performed By: #### L 100.0100, L3200.1200 #### [facility] [address] [place], [address] NOTE: Comment Normal . [facility] Comment on above: Result Comment: The SPE pattern appears unremarkable. Evidence of monoclonal protein is not apparent. Performed By: #### L 100.0100, L3200.1200 #### [facility] [address] [place], [address] Protein [Mass/Vol] 7.2 g/dL Normal 6.0-8.5 [facility] Comment on above: Performed By: #### L 100.0100, L3200.1200 #### [facility] [address] [place], [address] Absolute lymphocyte countOrd ered By: SHANKAR NOLEN on 12-30-2024 Lymphocytes Auto (Unsp spec) [#/Vol] 1.02 10*3/uL 0.83-4.51 [facility] Absolute neutrophil countOrd ered By: SHANKAR NOLEN on 12-30-2024 Neutrophils (Bld) [#/Vol] 4.3 10*3/uL 2.0-7.7 [facility] Albumin Elph [Mass/Vol]Order ed By: SHANKAR NOLEN on 12-30-2024 Albumin [Mass/Vol] 4.2 g/dL 2.9-4.4 [facility] Automated lymphocyte count a s percentage of total leukocytesOrdered By: SHANKAR NOLEN on 12-30-2024 Lymphocytes/100 WBC Auto (Unsp spec) 15.8 % Low 19-41 [facility] Basophil percentageOrdered B y: SHANKAR NOLEN on 12-30-2024 Basophils/100 WBC (Bld) 0.9 % 0-1 [facility] Bilirubin Test strip Ql (U)O rdered By: SHANKAR NOLEN on 12-30-2024 Bilirubin Ql (U) Negative Negative [facility] Bilirubin directOrdered By: SHANKAR NOLEN on 12-30-2024 Bilirubin.direct [Mass/Vol] 0.18 mg/dL 0.00-0.30 [facility] Bilirubin, totalOrdered By: SHANKAR NOLEN on 12-30-2024 Bilirubin [Mass/Vol] 0.41 mg/dL 0.00-1.30 [facility] CBC W/Diff, Automatedon Absolute Lymph 1.02 X10 3/uL Normal 0.83-4.51 [facility] Comment on above: Performed By: #### L 3410.1110, L400.2011, L3100.3450, L101.9900, L100.0100, L501.1105, L3100.5500, L500.3400, L3100.5800, L501.6710, L3100.5700 ####[facility] [address] [place], [address] Absolute Neut 4.3 X10 3/uL Normal 2.0-7.7 [facility] Comment on above: Performed By: #### L 3410.1110, L400.2010, L3100.3450, L101.9900, L100.0100, L501.1105, L3100.5500, L500.3400, L3100.5800, L501.6710, L3100.5700 ####[facility] [address] [place], [place], [id number] Basophils/100 WBC (Bld) 0.9 % Normal 0-1 [facility] Comment on above: Performed By: #### L 3410.1110, L400.2010, L3100.3450, L101.9900, L100.0100, L501.1105, L3100.5500, L500.3400, L3100.5800, L501.6710, L3100.5700 ####[facility] [address] [place], [place], [id number] Eosinophils/100 WBC (Bld) 2.5 % Normal 0-5 [facility] Comment on above: Performed By: #### L 3410.1110, L400.2010, L3100.3450, L101.9900, L100.0100, L501.1105, L3100.5500, L500.3400, L3100.5800, L501.6710, L3100.5700 ####[facility] [address] [place], [place], [id number] Erythrocyte distribution width (RBC) [Ratio] 12.0 % Normal 11.6-14.6 [facility] Comment on above: Performed By: #### L 3410.1110, L400.2010, L3100.3450, L101.9900, L100.0100, L501.1105, L3100.5500, L500.3400, L3100.5800, L501.6710, L3100.5700 ####[facility] [address] [place], [address] Hematocrit (Bld) [Volume fraction] 40.5 % Normal 37-47 [facility] Comment on above: Performed By: #### L 3410.1110, L400.2010, L3100.3450, L101.9900, L100.0100, L501.1105, L3100.5500, L500.3400, L3100.5800, L501.6710, L3100.5700 ####[facility] [address] [place], [address] Hemoglobin (Bld) [Mass/Vol] 13.5 g/dL Normal 12.0-15.0 [facility] Comment on above: Performed By: #### L 3410.1110, L4.2010, L3100.3450, L101.9900, L100.0100, L501.1105, L3100.5500, L500.3400, L3100.5800, L501.6710, L3100.5700 ####[facility] [address] [place], [address] IG% 0.500 Normal 0.0-0.9 [facility] Comment on above: Result Comment: IG% - Immature Granulocytes (promyelocytes, myelocytes and metamyelocytes) > 1% indicates that a LEFT SHIFT is Present. Performed By: #### L 3410.1110, L400.2010, L3100.3450, L101.9900, L100.0100, L501.1105, L3100.5500, L500.3400, L3100.5800, L501.6710, L3100.5700 ####[facility] [address] [place], [address] Lymphocytes/100 WBC (Bld) 15.8 % Low 19-41 [facility] Comment on above: Performed By: #### L 3410.1110, L400.2011, L3100.3450, L101.9900, L100.0100, L501.1105, L3100.5500, L500.3400, L3100.5800, L501.6710, L3100.5700 ####[facility] [address] [place], [address] MCH (RBC) [Entitic mass] 31.1 pg Normal 27.0-32.0 [facility] Comment on above: Performed By: #### L 3410.1110, L400.2010, L3100.3450, L101.9900, L100.0100, L501.1105, L3100.5500, L500.3400, L3100.5800, L501.6710, L3100.5700 ####[facility] [address] [place], [address] MCHC (RBC) [Mass/Vol] 33.3 g/dL Normal 32-36 [facility] Comment on above: Performed By: #### L 3410.1110, L400.2010, L3100.3450, L101.9900, L100.0100, L501.1105, L3100.5500, L500.3400, L3100.5800, L501.6710, L3100.5700 ####[facility] [address] [place], [address] MCV (RBC) [Entitic vol] 93.3 fL Normal 81-99 [facility] Comment on above: Performed By: #### L 3410.1110, L400.2010, L3100.3450, L101.9900, L100.0100, L501.1105, L3100.5500, L500.3400, L3100.5800, L501.6710, L3100.5700 ####[facility] [address] [place], [address] Monocytes/100 WBC (Bld) 13.9 % High 0-10 [facility] Comment on above: Performed By: #### L 3410.1110, L400.2010, L3100.3450, L101.9900, L100.0100, L501.1105, L3100.5500, L500.3400, L3100.5800, L501.6710, L3100.5700 ####[facility] [address] [place], [place], [phone] Neutrophils/100 WBC (Bld) 66.4 % Normal 47-70 [facility] Comment on above: Performed By: #### L 3410.1110, L4.2010, L3100.3450, L101.9900, L100.0100, L501.1105, L3100.5500, L500.3400, L3100.5800, L501.6710, L3100.5700 ####[facility] [address] [place], [place], [phone] Nucleated RBC (Bld) [#/Vol] 0 10*3/uL Normal 0-5 [facility] Comment on above: Performed By: #### L 3410.1110, L4.2010, L3100.3450, L101.9900, L100.0100, L501.1105, L3100.5500, L500.3400, L3100.5800, L501.6710, L3100.5700 ####[facility] [address] [place], [address] Platelet mean volume (Bld) [Entitic vol] 10.6 fL Normal 6.2-12.0 [facility] Comment on above: Performed By: #### L 3410.1110, L4.2010, L3100.3450, L101.9900, L100.0100, L501.1105, L3100.5500, L500.3400, L3100.5800, L501.6710, L3100.5700 ####[facility] [address] [place], [address] Platelets (Bld) [#/Vol] 382 10*3/uL Normal 150-450 [facility] Comment on above: Performed By: #### L 3410.1110, L400.2011, L3100.3450, L101.9900, L100.0100, L501.1105, L3100.5500, L500.3400, L3100.5800, L501.6710, L3100.5700 ####[facility] [address] [place], [address] RBC (Bld) [#/Vol] 4.34 10*6/uL Normal 4.2-5.4 [facility] Comment on above: Performed By: #### L 3410.1110, L400.2010, L3100.3450, L101.9900, L100.0100, L501.1105, L3100.5500, L500.3400, L3100.5800, L501.6710, L3100.5700 ####[facility] [address] [place], [address] RDW SD 41.4 fl Normal 35.1-43.9 [facility] Comment on above: Performed By: #### L 3410.1110, L400.2010, L3100.3450, L101.9900, L100.0100, L501.1105, L3100.5500, L500.3400, L3100.5800, L501.6710, L3100.5700 ####[facility] [address] [place], [address] WBC (Bld) [#/Vol] 6.5 10*3/uL Normal 4.4-11.0 [facility] Comment on above: Performed By: #### L 3410.1110, L400.2010, L3100.3450, L101.9900, L100.0100, L501.1105, L3100.5500, L500.3400, L3100.5800, L501.6710, L3100.5700 ####[facility] [address] [place], [address] CRPon 12-30-2024 C-REACTIVE PROT < 3.00 Normal 0.0-3.0 [facility] Comment on above: Performed By: #### L 100.0100, L3200.1200 #### [facility] [address] [place], [place], [id number] Eosinophil percentageOrdered By: SHANKAR NOLEN on 12-30-2024 Eosinophils/100 WBC (Bld) 2.5 % 0-5 [facility] Erythrocyte Sed Rateon 12-30 SED RATE 1 mm/hr Normal 0-30 [facility] Comment on above: Performed By: #### L 3410.1110, L400.2011, L3100.3450, L101.9900, L100.0100, L501.1105, L3100.5500, L500.3400, L3100.5800, L501.6710, L3100.5700 ####[facility] [address] [place], [address] Erythrocyte distribution wid th ratioOrdered By: SHANKAR NOLEN on 12-30-2024 Erythrocyte distribution width (RBC) [Ratio] 12.0 % 11.6-14.6 [facility] Erythrocyte distribution wid th standard deviationOrdered By: SHANKAR NOLEN on 12-30-2024 Erythrocyte distribution width (RBC) [Ratio] 41.4 fl 35.1-43.9 [facility] Erythrocyte sedimentation ra teOrdered By: SHANKAR NOLEN on 12-30-2024 ESR (Bld) [Velocity] 1 mm/h 0-30 [facility] Glomerular filtration rate ( GFR) estimation/1.73 sq m using serum, plasma, or whole bOrdered By: SHANKAR NOLEN on 12-30-2024 GFR/1.73 sq M.predicted among non-blacks MDRD (S/P/Bld) [Vol rate/Area] 87 mL/min/{1.73_m2} >60 [facility] Comment on above: mL/min/1.73m2 CKD-EP I Creatinine Equation (2020) Hematocrit Auto (Bld) [Volum e fraction]Ordered By: SHANKAR NOLEN on 12-30-2024 Hematocrit (Bld) [Volume fraction] 40.5 % 37-47 [facility] Hemoglobin measurementOrdere d By: SHANKAR NOLEN on 12-30-2024 Hemoglobin (Bld) [Mass/Vol] 13.5 g/dL 12.0-15.0 [facility] Immature granulocytes/100 WB C Auto (Bld)Ordered By: SHANKAR NOLEN on 12-30-2024 Immature granulocytes/100 WBC (Bld) 0.500 % 0.0-0.9 [facility] Comment on above: IG% - Immature Granu locytes (promyelocytes, myelocytes and metamyelocytes) > 1% indicates that a LEFT SHIFT is Present. Ketones Test strip Ql (U)Ord ered By: SHANKAR NOLEN on 12-30-2024 Ketones Ql (U) Negative Negative [facility] - Chemistry and C hemistry - challengeOrdered By: SHANKAR NOLEN on 12-30-2024 AST [Catalytic activity/Vol] 20 U/L <32 [facility] Liver Profileon 12-30-2024 Albumin [Mass/Vol] 4.6 g/dL Normal 3.5-5.0 [facility] Comment on above: Performed By: #### L 3410.1110, L4.2010, L3100.3450, L101.9900, L100.0100, L501.1105, L3100.5500, L500.3400, L3100.5800, L501.6710, L3100.5700 ####[facility] [address] [place], [address] ALK PHOS 72 U/L Normal 35-104 [facility] Comment on above: Performed By: #### L 3410.1110, L4.2010, L3100.3450, L101.9900, L100.0100, L501.1105, L3100.5500, L500.3400, L3100.5800, L501.6710, L3100.5700 ####[facility] [address] [facility] [address] [place], [place], [phone] ALT [Catalytic activity/Vol] 19 U/L Normal <=34 [facility] Comment on above: Performed By: #### L 3410.1110, L4.2010, L3100.3450, L101.9900, L100.0100, L501.1105, L3100.5500, L500.3400, L3100.5800, L501.6710, L3100.5700 ####[facility] [address] [facility] [place], [place], [id number] AST [Catalytic activity/Vol] 20 U/L Normal <=31 [facility] Comment on above: Performed By: #### L 3410.1110, L4, L3100.3450, L101.9900, L100.0100, L501.1105, L3100.5500, L500.3400, L3100.5800, L501.6710, L3100.5700 ####[facility] [address] [facility] [place], [address] Bilirubin [Mass/Vol] 0.41 mg/dL Normal 0.00-1.30 [facility] Comment on above: Performed By: #### L 3410.1110, L4.2010, L3100.3450, L101.9900, L100.0100, L501.1105, L3100.5500, L500.3400, L3100.5800, L501.6710, L3100.5700 ####[facility] [address] [facility] [place], [address] Bilirubin.direct [Mass/Vol] 0.18 mg/dL Normal 0.00-0.30 [facility] Comment on above: Performed By: #### L 3410.1110, L4, L3100.3450, L101.9900, L100.0100, L501.1105, L3100.5500, L500.3400, L3100.5800, L501.6710, L3100.5700 ####[facility] [address] [place], [address] Globulin (S) [Mass/Vol] 2.6 g/dL Normal 2.2-4.2 [facility] Comment on above: Performed By: #### L 3410.1110, L400.2011, L3100.3450, L101.9900, L100.0100, L501.1105, L3100.5500, L500.3400, L3100.5800, L501.6710, L3100.5700 ####[facility] [address] [place], [address] T PROT 7.2 g/dL Normal 5.9-8.4 [facility] Comment on above: Performed By: #### L 3410.1110, L400.2010, L3100.3450, L101.9900, L100.0100, L501.1105, L3100.5500, L500.3400, L3100.5800, L501.6710, L3100.5700 ####[facility] [address] [place], [place], [id number] MCV (mean corpuscular volume ) determinationOrdered By: SHANKAR NOLEN on 12-30-2024 MCV (RBC) [Entitic vol] 93.3 fL 81-99 [facility] Mean corpuscular hemoglobin (MCH) determinationOrdered By: SHANKAR NOLEN on 12-30-2024 MCH (RBC) [Entitic mass] 31.1 pg 27.0-32.0 [facility] Mean corpuscular hemoglobin concentration (MCHC) determinationOrdered By: SHANKAR NOLEN on 12-30-2024 MCHC (RBC) [Mass/Vol] 33.3 g/dL 32-36 [facility] Mean platelet volume determi nationOrdered By: SHANKAR NOLEN on 12-30-2024 Platelet mean volume (Bld) [Entitic vol] 10.6 fL 6.2-12.0 [facility] Monocyte percentageOrdered B y: SHANKAR NOLEN on 12-30-2024 Monocytes/100 WBC (Bld) 13.9 % High 0-10 [facility] Neutrophil percentageOrdered By: SHANKAR NOLEN on 12-30-2024 Neutrophils/100 WBC (Bld) 66.4 % 47-70 [facility] Nitrite Test strip Ql (U)Ord ered By: SHANKAR NOLEN on 12-30-2024 Nitrite Ql (U) Negative Negative [facility] No Panel InformationOrdered By: SHANKAR NOLEN on 12-30-2024 Addendum Document Comment . [facility] Comment on above: The SPE pattern appe ars unremarkable. Evidence ofmonoclonal protein is not apparent. Nucleated red blood cell per centageOrdered By: SHANKAR NOLEN on 12-30-2024 Nucleated RBC/100 WBC (Bld) [Ratio] 0 % 0-5 [facility] Platelet countOrdered By: ME GRANT NOLEN on 12-30-2024 Platelets (Bld) [#/Vol] 382 10*3/uL 150-450 [facility] Protein Fractions Elph [Inte rp]Ordered By: SHANKAR NOLEN on 12-30-2024 Protein Fractions [Interp] Comment . [facility] Comment on above: Protein electrophore sis scan will follow via computer,mail, or occasional babysitter delivery. Protein Test strip Ql (U)Ord ered By: SHANKAR NOLEN on 12-30-2024 Protein Ql (U) 15 mg/dl High Negative [facility] RBC Auto (Bld) [#/Vol]Ordere d By: SHANKAR NOLEN on 12-30-2024 RBC (Bld) [#/Vol] 4.34 10*6/uL 4.2-5.4 [facility] Serum Creatinine AND GFRon 1 Creatinine [Mass/Vol] 0.81 mg/dL Normal 0.70-1.20 [facility] Comment on above: Performed By: #### L 100.0100, L3200.1200 #### [facility] [address] [place], [place], [address] GFR/1.73 sq M.predicted among non-blacks MDRD (S/P/Bld) [Vol rate/Area] 87 mL/min/{1.73_m2} Normal >60 [facility] Comment on above: Result Comment: mL/m in/1.73m2 CKD-EPI Creatinine Equation (2020) Performed By: #### L 100.0100, L3200.1200 #### [facility] [address] [place], [address] Serum DNA double strand anti body assay (units/volume)Ordered By: SHANKAR NOLEN on 12-30-2024 DNA double strand Ab Qn (S) 3 [IU]/mL 0-9 [facility] Comment on above: Negative <5 Equivoca l 5 - 9 Positive >9Performed at: [facility] Director: Ej Landers PhD, Phone: [phone] Serum albumin to globulin ra salazar by protein electrophoresisOrdered By: SHANKAR NOLEN on 12-30-2024 Albumin/Globulin Elph [Mass ratio] 1.4 0.7-1.7 [facility] Serum creatinine measurement (mass/volume)Ordered By: SHANKAR NOLEN on 12-30-2024 Creatinine [Mass/Vol] 0.81 mg/dL 0.70-1.20 [facility] Serum globulin measurementOr dered By: SHANKAR NOLEN on 12-30-2024 Globulin (S) [Mass/Vol] 2.6 g/dL 2.2-4.2 [facility] Serum globulin measurement ( mass/volume)Ordered By: SHANKAR NOLEN on 12-30-2024 Globulin (S) [Mass/Vol] 3.0 g/dL 2.2-3.9 [facility] Serum or plasma C reactive p rotein measurement (mass/volume)Ordered By: SHANKAR NOLEN on 12-30-2024 CRP [Mass/Vol] mg/L 0.0-3.0 [facility] Serum or plasma alanine hernandez otransferase (ALT) measurementOrdered By: SHANKAR NOLEN on 12-30-2024 ALT [Catalytic activity/Vol] 19 U/L <35 [facility] Serum or plasma albumin gem urement (mass/volume)Ordered By: SHANKAR NOLEN on 12-30-2024 Albumin [Mass/Vol] 4.6 g/dL 3.5-5.0 [facility] Serum or plasma alkaline chris sphatase measurementOrdered By: SHANKAR NOLEN on 12-30-2024 ALP [Catalytic activity/Vol] 72 U/L 35-104 [facility] Serum or plasma beta globuli n measurement by electrophoresis (mass/volume)Ordered By: SHANKAR NOLEN on 12-30-2024 Beta globulin Elph [Mass/Vol] 1.1 g/dL 0.7-1.3 [facility] Serum or plasma complement C 4 measurement (mass/volume)Ordered By: SHANKAR NOLEN on 12-30-2024 Complement C4 [Mass/Vol] 22 mg/dL 12-38 [facility] Serum or plasma protein mono clonal measurement by electrophoresis (mass/volume)Ordered By: SHANKAR NOLEN on 12-30-2024 Protein.monoclonal Elph [Mass/Vol] Not Observed g/dL Not Observed [facility] Total proteinOrdered By: JENNIFER NOLEN on 12-30-2024 Protein [Mass/Vol] 7.2 g/dL 6.0-8.5 [facility] Urinalysis, Routine (Dipstic k)on 12-30-2024 BILIRUBIN URINE Negative Normal Negative [facility] Comment on above: Order Comment: CLEAN CATCH Performed By: #### L 100.0100, L3200.1200 #### [facility] [address] [place], [place], [id number] Clarity (U) Clear Normal Clear [facility] Comment on above: Order Comment: CLEAN CATCH Performed By: #### L 100.0100, L3200.1200 #### [facility] [address] [place], [address] Color (U) Yellow Normal Yellow [facility] Comment on above: Order Comment: CLEAN CATCH Performed By: #### L 100.0100, L3200.1200 #### [facility] [address] [place], [address] GLUCOSE, UR Normal Normal Normal [facility] Comment on above: Order Comment: CLEAN CATCH Performed By: #### L 100.0100, L3200.1200 #### [facility] [address] [place], [address] KETONE UR Negative Normal Negative [facility] Comment on above: Order Comment: CLEAN CATCH Performed By: #### L 100.0100, L3200.1200 #### [facility] [address] [place], [address] LEUK ESTERASE 25 /ul Abnormal Negative [facility] Comment on above: Order Comment: CLEAN CATCH Performed By: #### L 100.0100, L3200.1200 #### [facility] [address] [place], [address] Nitrite Ql (U) Negative Normal Negative [facility] Comment on above: Order Comment: CLEAN CATCH Performed By: #### L 100.0100, L3200.1200 #### [facility] [address] [place], [address] OCCULT BLOOD-UR Negative Normal Negative [facility] Comment on above: Order Comment: CLEAN CATCH Performed By: #### L 100.0100, L3200.1200 #### [facility] [address] [place], [address] pH UR 6.0 Normal 5.0 - 8.0 [facility] Comment on above: Order Comment: CLEAN CATCH Performed By: #### L 100.0100, L3200.1200 #### [facility] [address] [place], [address] PROT DIPSTX 15 mg/dl Abnormal Negative [facility] Comment on above: Order Comment: CLEAN CATCH Performed By: #### L 100.0100, L3200.1200 #### [facility] [address] [place], [address] SP.GR. DIPSTX 1.020 Normal 1.002-1.03 0 [facility] Comment on above: Order Comment: CLEAN CATCH Performed By: #### L 100.0100, L3200.1200 #### [facility] [address] [place], [address] UROBILI Normal Normal Normal [facility] Comment on above: Order Comment: CLEAN CATCH Performed By: #### L 100.0100, L3200.1200 #### [facility] [address] [place], [address] Urine clarityOrdered By: JENNIFER NOLEN on 12-30-2024 Clarity (U) Clear Clear [facility] Urine color determinationOrd ered By: SHANKAR NOLEN on 12-30-2024 Color (U) Yellow Yellow [facility] Urine glucose detectionOrder ed By: SHANKAR NOLEN on 12-30-2024 Glucose Ql (U) Normal mg/dl Normal [facility] Urine leukocyte esterase det ection by dipstickOrdered By: SHANKAR NOLEN on 12-30-2024 Leukocyte esterase Test strip Ql (U) 25 /ul High Negative [facility] Urine pHOrdered By: SHANKAR PENN on 12-30-2024 pH (U) 6.0 [pH] 5.0 - 8.0 [facility] Urine specific gravity measu rementOrdered By: SHANKAR NOLEN on 12-30-2024 Specific gravity (U) [Rel density] 1.020 1.002-1.03 0 [facility] Urine urobilinogen measureme ntOrdered By: SHANKAR NOELN on 12-30-2024 Urobilinogen Ql (U) Normal mg/dl Normal [facility] White blood cell (WBC) count Ordered By: SHANKAR NOLEN on 12-30-2024 WBC (Bld) [#/Vol] 6.5 10*3/uL 4.4-11.0 [facility] Rep[facility] ton 10-16-2024 Gastroenterology Visit Report [facility] [address] [place] [address] OFFICE VISIT Date of Service: 10/16/24 MR#: [id number] Acct: [id number] Name: PRAFUL KAHN Rep #: [id number] : 1975 Provider: Adam Geiger DO Age/Sex: 49/F Location: [facility] Status: Signed Intake Vital Signs 05/16/24 15:27 [...] in a 1 drp ophthalmic (eye) Q12H 0506/1710/16/24 History dropperette (Restasis) ocrelizumab 30 mg/mL intravenous [...] 1 current occupational status: employed 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 OV 11.04.22 Feels she is doing better than previously; [...] unsure if current regimen is helpful. OV 1.06.20 pt reports that she is doing better since last visit. Pt states that she began having HB again two weeks ago, has taken omeprazole in the past, but was not helpful. Pt reports that she is having a bm every other day and feels that her symptoms are stable. OV 7. pt reports that she is feeling well [...] anxiety and (more content not included)... Normal [facility] Immunoglobulins G/A/Mon 08-27 IMMUNOGLOB A QN 186 mg/dL Normal 87-352 [facility] Comment on above: Order Comment: N Performed By: #### L 3200.1200, L100.0100 ####[facility] [id number] [place], [address] IMMUNOGLOB G QN 1204 mg/dL Normal 586-1602 [facility] Comment on above: Order Comment: N Performed By: #### L 3200.1200, L100.0100 ####[facility] [id number] [place], [address] IMMUNOGLOB M QN 70 mg/dL Normal 26-217 [facility] Comment on above: Order Comment: N Result Comment: Perf ormed at: [facility] [id number] Center Line Cutter Operator: Ej Landers PhD, Phone: [phone] Performed By: #### L 3200.1200, L100.0100 ####[facility] [id number] [place], [address] Absolute lymphocyte countOrd ered By: Philippe Gonzalez on 09-07-2024 Lymphocytes Auto (Unsp spec) [#/Vol] 1.30 10*3/uL 0.83-4.51 [facility] Absolute neutrophil countOrd ered By: Philippe Gonzalez on 09-07-2024 Neutrophils (Bld) [#/Vol] 3.1 10*3/uL 2.0-7.7 [facility] Automated lymphocyte count a s percentage of total leukocytesOrdered By: Philippe Gonzalez on 09-07-2024 Lymphocytes/100 WBC Auto (Unsp spec) 24.1 % 19-41 [facility] Basophil percentageOrdered B y: Philippe Gonzalez on 09-07-2024 Basophils/100 WBC (Bld) 1.1 % High 0-1 [facility] CBC W/Diff, Automatedon 08-27 Absolute Lymph 1.30 X10 3/uL Normal 0.83-4.51 [facility] Comment on above: Performed By: #### L 3200.1200, L100.0100 ####[facility] [id number] [place], [address] Absolute Neut 3.1 X10 3/uL Normal 2.0-7.7 [facility] Comment on above: Performed By: #### L 3200.1200, L100.0100 ####[facility] [id number] [place], [address] Basophils/100 WBC (Bld) 1.1 % High 0-1 [facility] Comment on above: Performed By: #### L 3200.1200, L100.0100 ####[facility] [address] [place], [address] Eosinophils/100 WBC (Bld) 1.5 % Normal 0-5 [facility] Comment on above: Performed By: #### L 3200.1200, L100.0100 ####[facility] [address] [place], [address] Erythrocyte distribution width (RBC) [Ratio] 12.0 % Normal 11.6-14.6 [facility] Comment on above: Performed By: #### L 3200.1200, L100.0100 ####[facility] [address] [place], [address] Hematocrit (Bld) [Volume fraction] 41.4 % Normal 37-47 [facility] Comment on above: Performed By: #### L 3200.1200, L100.0100 ####[facility] [address] [place], [address] Hemoglobin (Bld) [Mass/Vol] 14.0 g/dL Normal 12.0-15.0 [facility] Comment on above: Performed By: #### L 3200.1200, L100.0100 ####[facility] [address] [place], [address] IG% 0.400 Normal 0.0-0.9 [facility] Comment on above: Result Comment: IG% - Immature Granulocytes (promyelocytes, myelocytes and metamyelocytes) > 1% indicates that a LEFT SHIFT is Present. Performed By: #### L 3200.1200, L100.0100 ####[facility] [address] [place], [address] Lymphocytes/100 WBC (Bld) 24.1 % Normal 19-41 [facility] Comment on above: Performed By: #### L 3200.1200, L100.0100 ####[facility] [address] [place], [address] MCH (RBC) [Entitic mass] 31.0 pg Normal 27.0-32.0 [facility] Comment on above: Performed By: #### L 3200.1200, L100.0100 ####[facility] [address] [place], [address] MCHC (RBC) [Mass/Vol] 33.8 g/dL Normal 32-36 [facility] Comment on above: Performed By: #### L 3200.1200, L100.0100 ####[facility] [address] [place], [address] MCV (RBC) [Entitic vol] 91.6 fL Normal 81-99 [facility] Comment on above: Performed By: #### L 3200.1200, L100.0100 ####[facility] [address] [place], [address] Monocytes/100 WBC (Bld) 14.8 % High 0-10 [facility] Comment on above: Performed By: #### L 3200.1200, L100.0100 ####[facility] [address] [place], [address] Neutrophils/100 WBC (Bld) 58.1 % Normal 47-70 [facility] Comment on above: Performed By: #### L 3200.1200, L100.0100 ####[facility] [address] [place], [address] Nucleated RBC (Bld) [#/Vol] 0 10*3/uL Normal 0-5 [facility] Comment on above: Performed By: #### L 3200.1200, L100.0100 ####[facility] [address] [place], [address] Platelet mean volume (Bld) [Entitic vol] 9.9 fL Normal 6.2-12.0 [facility] Comment on above: Performed By: #### L 3200.1200, L100.0100 ####[facility] [address] [place], [address] Platelets (Bld) [#/Vol] 369 10*3/uL Normal 150-450 [facility] Comment on above: Performed By: #### L 3200.1200, L100.0100 ####[facility] [address] [place], [address] RBC (Bld) [#/Vol] 4.52 10*6/uL Normal 4.2-5.4 [facility] Comment on above: Performed By: #### L 3200.1200, L100.0100 ####[facility] [address] [place], [address] RDW SD 40.1 fl Normal 35.1-43.9 [facility] Comment on above: Performed By: #### L 3200.1200, L100.0100 ####[facility] [address] [place], [address] WBC (Bld) [#/Vol] 5.4 10*3/uL Normal 4.4-11.0 [facility] Comment on above: Performed By: #### L 3200.1200, L100.0100 ####[facility] [address] [place], [address] Eosinophil percentageOrdered By: Philippe Gonzalez on 09-07-2024 Eosinophils/100 WBC (Bld) 1.5 % 0-5 [facility] Erythrocyte distribution wid th ratioOrdered By: Philippe Gonzalez on 09-07-2024 Erythrocyte distribution width (RBC) [Ratio] 12.0 % 11.6-14.6 [facility] Erythrocyte distribution wid th standard deviationOrdered By: Philippe Gonzalez on 09-07-2024 Erythrocyte distribution width (RBC) [Ratio] 40.1 fl 35.1-43.9 [facility] Hematocrit Auto (Bld) [Volum e fraction]Ordered By: Philippe Gonzalez on 09-07-2024 Hematocrit (Bld) [Volume fraction] 41.4 % 37-47 [facility] Hemoglobin measurementOrdere d By: Philippe Gonzalez on 09-07-2024 Hemoglobin (Bld) [Mass/Vol] 14.0 g/dL 12.0-15.0 [facility] Immature granulocytes/100 WB C Auto (Bld)Ordered By: Philippe Gonzalez on 09-07-2024 Immature granulocytes/100 WBC (Bld) 0.400 % 0.0-0.9 [facility] Comment on above: IG% - Immature Granu locytes (promyelocytes, myelocytes and metamyelocytes) > 1% indicates that a LEFT SHIFT is Present. MCV (mean corpuscular volume ) determinationOrdered By: Philippe Gonzalez on 09-07-2024 MCV (RBC) [Entitic vol] 91.6 fL 81-99 [facility] Mean corpuscular hemoglobin (MCH) determinationOrdered By: Philippe Gonzalez on 09-07-2024 MCH (RBC) [Entitic mass] 31.0 pg 27.0-32.0 [facility] Mean corpuscular hemoglobin concentration (MCHC) determinationOrdered By: Philippe Gonzalez on 09-07-2024 MCHC (RBC) [Mass/Vol] 33.8 g/dL 32-36 [facility] Mean platelet volume determi nationOrdered By: Philippe Gonzalez on 09-07-2024 Platelet mean volume (Bld) [Entitic vol] 9.9 fL 6.2-12.0 [facility] Monocyte percentageOrdered B y: Philippe Gonzalez on 09-07-2024 Monocytes/100 WBC (Bld) 14.8 % High 0-10 [facility] Neutrophil percentageOrdered By: Philippe Gonzalez on 09-07-2024 Neutrophils/100 WBC (Bld) 58.1 % 47-70 [facility] Nucleated red blood cell per centageOrdered By: Philippe Gonzalez on 09-07-2024 Nucleated RBC/100 WBC (Bld) [Ratio] 0 % 0-5 [facility] Platelet countOrdered By: Sherri Gonzalez on 09-07-2024 Platelets (Bld) [#/Vol] 369 10*3/uL 150-450 [facility] RBC Auto (Bld) [#/Vol]Ordere d By: Philippe Gonzalez on 09-07-2024 RBC (Bld) [#/Vol] 4.52 10*6/uL 4.2-5.4 [facility] Serum or plasma IgA measurem ent (mass/volume)Ordered By: Philippe Gonzalez on 09-07-2024 IgA [Mass/Vol] 186 mg/dL 87-352 [facility] Serum or plasma IgG measurem ent (mass/volume)Ordered By: Philippe Gonzalez on 09-07-2024 IgG [Mass/Vol] 1204 mg/dL [phone] [facility] White blood cell (WBC) count Ordered By: Philippe Gonzalez on 09-07-2024 WBC (Bld) [#/Vol] 5.4 10*3/uL 4.4-11.0 [facility] Breast imaging reportOrdered By: Christine Fernandes on 09-04-2024 Study report [facility] Imaging Services [address] [place] [address] SCRN MAMM (CAD)W/DARVIN BILAT MR#: [id number] Acct: [id number] Name: PRAFUL KAHN Rep #: [id number] : 1975 F 49 From: Sharan Lin MD PCP: COLLETTE PARKER MD Status: REG CLI Study:SCRN MAMM (CAD)W/DARVIN BILAT Date of Exa m: 09/04/24 Exam# [id number] Ordering Dr: Radha Caicedo HEDDLE MACHINE OPERATOR-C EXAM: SCRN MAMM (CAD)W/DARVIN BILAT DATE: 09/04/2024 [...] be mailed to the patient. Reading Location: [facility] CC: TERRY Caicedo; COLLETTE PARKER MD ~ Anthropological Linguist: Signed [facility] SCRN MAMM (CAD)W/DARVIN BILATo n 09-04-2024 SCRN MAMM (CAD)W/DARVIN BILAT [facility] Imaging Services [address] [place] [id number] SCRN MAMM (CAD)W/DARVIN BILAT MR#: [id number] Acct: [id number] Name: PRAFUL KAHN Rep #: [id number] : 1975 F 49 From: Christine Jefferson i, MD PCP: COLLETTE PARKER MD Status: [facility] Study: SCRN MAMM (CAD)W/DARVIN BILAT Date of Exam: 12/21 Exam# [id number] Ordering Dr: Radha Caicedo HEDDLE MACHINE OPERATOR-C EXAM: SCRN MAMM (CAD)W/DARVIN BILAT DATE: 09/04/2024 [...] be mailed to the patient. Reading Location: [facility] CC: TERRY Caicedo; COLLETTE PARKER MD Anthropological Linguist: Signed Normal [facility] Urine Cultureon 07-17-2024 [facility] Enterococcus faecali s [place] Count >100,000 Enterococcus faecalis: REACTION Ampicillin Islt JESSICA <=2 Ciprofloxacin Islt JESSICA <=0.5 S Gentamicin Synergy Susc Islt SYN-S S levoFLOXacin Islt JESSICA 1 S Linezolid Islt JESSICA 2 S Nitrofurantoin Islt JESSICA <=16 S Streptomycin High Pot Susc Islt SYN-S S Tetracycline Islt JESSICA <=1 S Vancomycin Islt JESSICA <=0.5 S Normal [facility] Comment on above: Performed By: #### M 100.2200 #### [facility] [address] [facility] [place], [address] Urine cultureon 07-15-2024 Bacteria identified Cx Nom (U) Enterococcus faecalis Abnormal [facility] Rubeola IgG Abon 07-06-2024 RUBEOLA Ab, IgG > 300.0 Normal Immune >16.4 [facility] Comment on above: Result Comment: Nega tive <13.5 Equivocal 13.5 - 16.4 Positive >16.4 Presence of antibodies to Rubeola is presumptive evidence of immunity except when acute infection is suspected. Performed at: - [facility] [id number] Center Line Cutter Operator: Ej Landers PhD, Phone: [phone] Performed By: #### L 5795.6863 ####[facility] [address] [place], [address] MeV IgG IA Qn (S)on 07-06-19 Rubeola (Measles) IgG Antibody > 300.0 AU/mL Immune >16.4 [facility] Comment on above: Negative <13.5 Equiv ocal 13.5 - 16.4 Positive >16.4Presence of antibodies to Rubeola is presumptive evidenceof immunity except when acute infection is suspected.Performed at: [address] [id number] Director: Ej Landers PhD, Phone: [phone] Serum measles virus IgG anti body assay by immunoassay (units/volume)on 07-05-2024 MeV IgG IA Qn (S) > 300.0 AU/mL Immune >16.4 [facility] Comment on above: Negative <13.5 Equiv ocal 13.5 - 16.4 Positive >16.4Presence of antibodies to Rubeola is presumptive evidenceof immunity except when acute infection is suspected.Performed at: [address] [id number] Director: Ej Landers PhD, Phone: [phone] Anti-dsDNA Abon 06-27-2024 ANTI-DNA (DS)AB 2 IU/mL Normal 0-9 [facility] Comment on above: Result Comment: Nega tive <5 Equivocal 5 - 9 Positive >9 Performed at: [address] [id number] Center Line Cutter Operator: Ej Landers PhD, Phone: [phone] Performed By: #### L 501.4100, L3100.5800, L3100.5500, L501.1000, L400.0001, L101.9900, L501.1105, L501.6710, L501.4405, L3100.5700, L100.0100 ####[facility] [address] [place], [place], [address] Complement C3on 06-27-2024 COMP C3 118 mg/dL Normal 82-167 [facility] Comment on above: Result Comment: Perf ormed at: [address] [id number] Center Line Cutter Operator: Ej Landers PhD, Phone: [phone] Performed By: #### L 501.4100, L3100.5800, L3100.5500, L501.1000, L400.0001, L101.9900, L501.1105, L501.6710, L501.4405, L3100.5700, L100.0100 ####[facility] [address] [place], [place], [id number] Complement C4on 06-27-2024 COMPLEMENT, C4 20 mg/dL Normal 12-38 [facility] Comment on above: Performed By: #### L 501.4100, L3100.5800, L3100.5500, L501.1000, L400.0001, L101.9900, L501.1105, L501.6710, L501.4405, L3100.5700, L100.0100 ####[facility] [address] [place], [place], [phone] AST(SGOT)on 06-24-2024 AST [Catalytic activity/Vol] 20 U/L Normal <=31 [facility] Comment on above: Performed By: #### L 501.4100, L3100.5800, L3100.5500, L501.1000, L400.0001, L101.9900, L501.1105, L501.6710, L501.4405, L3100.5700, L100.0100 ####[facility] [address] [place], [place], [id number] Absolute lymphocyte countOrd ered By: COLLETTE PARKER on 06-24-2024 Lymphocytes Auto (Unsp spec) [#/Vol] 1.33 10*3/uL 0.83-4.51 [facility] Absolute neutrophil countOrd ered By: COLLETTE APRKER on 06-24-2024 Neutrophils (Bld) [#/Vol] 4.6 10*3/uL 2.0-7.7 [facility] Alanine Aminotransferas (SGP T)on 06-24-2024 ALT [Catalytic activity/Vol] 16 U/L Normal <=34 [facility] Comment on above: Performed By: #### L 501.4100, L3100.5800, L3100.5500, L501.1000, L400.0001, L101.9900, L501.1105, L501.6710, L501.4405, L3100.5700, L100.0100 ####[facility] [address] [place], [place], [address] Automated lymphocyte count a s percentage of total leukocytesOrdered By: COLLETTE PARKER on 06-24-2024 Lymphocytes/100 WBC Auto (Unsp spec) 19.1 % 19- [facility] BUNon 06-24-2024 Urea nitrogen [Mass/Vol] 11 mg/dL Normal - [facility] Comment on above: Performed By: #### L 501.4100, L3100.5800, L3100.5500, L501.1000, L400.0001, L101.9900, L501.1105, L501.6710, L501.4405, L3100.5700, L100.0100 #### [facility] [address] [place], [place], [address] Bacteria LM.HPF (Urine sed) [#/Area]Ordered By: COLLETTE PARKER on 06-24-2024 Urine Bacteria RARE /hpf None Seen [facility] Basophil percentageOrdered B y: COLLETTE PARKER on 06-24-2024 Basophils/100 WBC (Bld) 1.0 % 0-1 [facility] Bilirubin Test strip Ql (U)O rdered By: COLLETTE PARKER on 06-24-2024 Bilirubin Ql (U) Negative Negative [facility] CBC W/Diff, Automatedon - Absolute Lymph 1.33 X10 3/uL Normal 0.83-4.51 [facility] Comment on above: Performed By: #### L 501.4100, L3100.5800, L3100.5500, L501.1000, L400.0001, L101.9900, L501.1105, L501.6710, L501.4405, L3100.5700, L100.0100 #### [facility] [address] [place], [address] Absolute Neut 4.6 X10 3/uL Normal 2.0-7.7 [facility] Comment on above: Performed By: #### L 501.4100, L3100.5800, L3100.5500, L501.1000, L400.0001, L101.9900, L501.1105, L501.6710, L501.4405, L3100.5700, L100.0100 #### [facility] [address] [place], [address] Basophils/100 WBC (Bld) 1.0 % Normal 0-1 [facility] Comment on above: Performed By: #### L 501.4100, L3100.5800, L3100.5500, L501.1000, L400.0001, L101.9900, L501.1105, L501.6710, L501.4405, L3100.5700, L100.0100 #### [facility] [address] [place], [address] Eosinophils/100 WBC (Bld) 1.4 % Normal 0-5 [facility] Comment on above: Performed By: #### L 501.4100, L3100.5800, L3100.5500, L501.1000, L400.0001, L101.9900, L501.1105, L501.6710, L501.4405, L3100.5700, L100.0100 #### [facility] [address] [facility] [place], [address] Erythrocyte distribution width (RBC) [Ratio] 11.9 % Normal 11.6-14.6 [facility] Comment on above: Performed By: #### L 501.4100, L3100.5800, L3100.5500, L501.1000, L400.0001, L101.9900, L501.1105, L501.6710, L501.4405, L3100.5700, L100.0100 #### [facility] [address] [place], [address] Hematocrit (Bld) [Volume fraction] 39.4 % Normal 37-47 [facility] Comment on above: Performed By: #### L 501.4100, L3100.5800, L3100.5500, L501.1000, L400.0001, L101.9900, L501.1105, L501.6710, L501.4405, L3100.5700, L100.0100 #### [facility] [address] [place], [address] Hemoglobin (Bld) [Mass/Vol] 13.4 g/dL Normal 12.0-15.0 [facility] Comment on above: Performed By: #### L 501.4100, L3100.5800, L3100.5500, L501.1000, L400.0001, L101.9900, L501.1105, L501.6710, L501.4405, L3100.5700, L100.0100 #### [facility] [address] [place], [address] IG% 0.700 Normal 0.0-0.9 [facility] Comment on above: Result Comment: IG% - Immature Granulocytes (promyelocytes, myelocytes and metamyelocytes) > 1% indicates that a LEFT SHIFT is Present. Performed By: #### L 501.4100, L3100.5800, L3100.5500, L501.1000, L400.0001, L101.9900, L501.1105, L501.6710, L501.4405, L3100.5700, L100.0100 #### [facility] [address] [place], [address] Lymphocytes/100 WBC (Bld) 19.1 % Normal 19-41 [facility] Comment on above: Performed By: #### L 501.4100, L3100.5800, L3100.5500, L501.1000, L400.0001, L101.9900, L501.1105, L501.6710, L501.4405, L3100.5700, L100.0100 #### [facility] [address] [facility] [place], [address] MCH (RBC) [Entitic mass] 31.0 pg Normal 27.0-32.0 [facility] Comment on above: Performed By: #### L 501.4100, L3100.5800, L3100.5500, L501.1000, L400.0001, L101.9900, L501.1105, L501.6710, L501.4405, L3100.5700, L100.0100 #### [facility] [address] [facility] [place], [address] MCHC (RBC) [Mass/Vol] 34.0 g/dL Normal 32-36 [facility] Comment on above: Performed By: #### L 501.4100, L3100.5800, L3100.5500, L501.1000, L400.0001, L101.9900, L501.1105, L501.6710, L501.4405, L3100.5700, L100.0100 #### [facility] [address] [facility] [place], [address] MCV (RBC) [Entitic vol] 91.2 fL Normal 81-99 [facility] Comment on above: Performed By: #### L 501.4100, L3100.5800, L3100.5500, L501.1000, L400.0001, L101.9900, L501.1105, L501.6710, L501.4405, L3100.5700, L100.0100 #### [facility] [address] [facility] [place], [address] Monocytes/100 WBC (Bld) 12.6 % High 0-10 [facility] Comment on above: Performed By: #### L 501.4100, L3100.5800, L3100.5500, L501.1000, L400.0001, L101.9900, L501.1105, L501.6710, L501.4405, L3100.5700, L100.0100 #### [facility] [address] [place], [address] Neutrophils/100 WBC (Bld) 65.2 % Normal 47-70 [facility] Comment on above: Performed By: #### L 501.4100, L3100.5800, L3100.5500, L501.1000, L400.0001, L101.9900, L501.1105, L501.6710, L501.4405, L3100.5700, L100.0100 #### [facility] [address] [facility] [place], [address] Nucleated RBC (Bld) [#/Vol] 0 10*3/uL Normal 0-5 [facility] Comment on above: Performed By: #### L 501.4100, L3100.5800, L3100.5500, L501.1000, L400.0001, L101.9900, L501.1105, L501.6710, L501.4405, L3100.5700, L100.0100 #### [facility] [address] [facility] [place], [address] Platelet mean volume (Bld) [Entitic vol] 10.1 fL Normal 6.2-12.0 [facility] Comment on above: Performed By: #### L 501.4100, L3100.5800, L3100.5500, L501.1000, L400.0001, L101.9900, L501.1105, L501.6710, L501.4405, L3100.5700, L100.0100 #### [facility] [address] [facility] [place], [address] Platelets (Bld) [#/Vol] 347 10*3/uL Normal 150-450 [facility] Comment on above: Performed By: #### L 501.4100, L3100.5800, L3100.5500, L501.1000, L400.0001, L101.9900, L501.1105, L501.6710, L501.4405, L3100.5700, L100.0100 #### [facility] [address] [place], [address] RBC (Bld) [#/Vol] 4.32 10*6/uL Normal 4.2-5.4 [facility] Comment on above: Performed By: #### L 501.4100, L3100.5800, L3100.5500, L501.1000, L400.0001, L101.9900, L501.1105, L501.6710, L501.4405, L3100.5700, L100.0100 #### [facility] [address] [place], [address] RDW SD 39.8 fl Normal 35.1-43.9 [facility] Comment on above: Performed By: #### L 501.4100, L3100.5800, L3100.5500, L501.1000, L400.0001, L101.9900, L501.1105, L501.6710, L501.4405, L3100.5700, L100.0100 #### [facility] [address] [place], [address] WBC (Bld) [#/Vol] 7.0 10*3/uL Normal 4.4-11.0 [facility] Comment on above: Performed By: #### L 501.4100, L3100.5800, L3100.5500, L501.1000, L400.0001, L101.9900, L501.1105, L501.6710, L501.4405, L3100.5700, L100.0100 #### [facility] [address] [place], [address] CRPon 06-24-2024 C-REACTIVE PROT < 3.00 Normal 0.0-3.0 [facility] Comment on above: Performed By: #### L 501.4100, L3100.5800, L3100.5500, L501.1000, L400.0001, L101.9900, L501.1105, L501.6710, L501.4405, L3100.5700, L100.0100 #### [facility] [place], [address] CRP [Mass/Vol]Ordered By: RA KINA PARKER on 06-24-2024 C-Reactive Protein Extended Range < 3.00 mg/L 0.0-3.0 [facility] Complement C3 assayOrdered B y: COLLETTE PARKER on 06-24-2024 Complement C3 118 mg/dL 82-167 [facility] Comment on above: Performed at: - [facility] [place] [id number] Director: Ej Landers PhD, Phone: [phone] Complement C4 [Mass/Vol]Orde red By: COLLETTE PARKER on 06-24-2024 Complement C4 20 mg/dL 12-38 [facility] DNA double strand Ab Qn (S)O rdered By: COLLETTE PARKER on 06-24-2024 Anti-Double Strand DNA Antibody 2 IU/mL 0-9 [facility] Comment on above: Negative <5 Equivoca l 5 - 9 Positive >9Performed at: [facility] [address] [id number] Director: Ej Landers PhD, Phone: [phone] Eosinophil percentageOrdered By: COLLETTE PARKER on 06-24-2024 Eosinophils/100 WBC (Bld) 1.4 % 0-5 [facility] Epithelial cells.squamous LM Ql (Urine sed)Ordered By: COLLETTE PARKER on 06-24-2024 Epithelial cells.squamous LM.HPF (Urine sed) [#/Area] 0 /[HPF] 5-10 [facility] Erythrocyte Sed Rateon 06-24 SED RATE < 1 Normal 0-30 [facility] Comment on above: Performed By: #### L 501.4100, L3100.5800, L3100.5500, L501.1000, L400.0001, L101.9900, L501.1105, L501.6710, L501.4405, L3100.5700, L100.0100 #### [facility] [address] [place], [place], [address] Erythrocyte distribution wid th ratioOrdered By: COLLETTE PARKER on 06-24-2024 Erythrocyte distribution width (RBC) [Ratio] 11.9 % 11.6-14.6 [facility] Erythrocyte distribution wid th standard deviationOrdered By: COLLETTE PARKER on 06-24-2024 Erythrocyte distribution width (RBC) [Entitic vol] 39.8 fL 35.1-43.9 [facility] Erythrocyte distribution width (RBC) [Ratio] 39.8 fl 35.1-43.9 [facility] Erythrocyte sedimentation ra teOrdered By: COLLETTE PARKER on 06-24-2024 ESR (Bld) [Velocity] mm/h 0-30 [facility] GFR/1.73 sq M.predicted tico g non-blacks MDRD (S/P/Bld) [Vol rate/Area]Ordered By: COLLETTE PARKER on 06-24-2024 Estimated GFR (MDRD) Non-Af Amer 83 >60 [facility] Comment on above: mL/min/1.73m2 CKD-EP I Creatinine Equation (2020) Glomerular filtration rate ( GFR) estimation/1.73 sq m using serum, plasma, or whole bOrdered By: COLLETTE PARKER on 06-24-2024 GFR/1.73 sq M.predicted among non-blacks MDRD (S/P/Bld) [Vol rate/Area] 83 mL/min/{1.73_m2} >60 [facility] Comment on above: mL/min/1.73m2 CKD-EP I Creatinine Equation (2020) Glucose Ql (U)Ordered By: RA KINA PARKER on 06-24-2024 Urine Glucose (UA) Normal mg/dl Normal [facility] Hematocrit Auto (Bld) [Volum e fraction]Ordered By: COLLETTE PARKER on 06-24-2024 Hematocrit (Bld) [Volume fraction] 39.4 % 37-47 [facility] Hemoglobin measurementOrdere d By: COLLETTE PARKER on 06-24-2024 Hemoglobin (Bld) [Mass/Vol] 13.4 g/dL 12.0-15.0 [facility] Immature granulocytes/100 WB C Auto (Bld)Ordered By: COLLETTE PARKER on 06-24-2024 Immature granulocytes/100 WBC (Bld) 0.700 % 0.0-0.9 [facility] Comment on above: IG% - Immature Granu locytes (promyelocytes, myelocytes and metamyelocytes) > 1% indicates that a LEFT SHIFT is Present. Ketones Test strip Ql (U)Ord ered By: COLLETTE PARKER on 06-24-2024 Ketones Ql (U) Negative Negative [facility] Laboratory - Chemistry and C hemistry - challengeOrdered By: COLLETTE PARKER on 06-24-2024 AST [Catalytic activity/Vol] 20 U/L <32 [facility] Lymphocytes Auto (Unsp spec) [#/Vol]Ordered By: COLLETTE PARKER on 06-24-2024 Lymphocytes (Bld) [#/Vol] 1.33 10*3/uL 0.83-4.51 [facility] Lymphocytes/100 WBC Auto (Un sp spec)Ordered By: COLLETTE PARKER on 06-24-2024 Lymphocytes/100 WBC (Bld) 19.1 % 19-41 [facility] MCV (mean corpuscular volume ) determinationOrdered By: COLLETTE PARKER on 06-24-2024 MCV (RBC) [Entitic vol] 91.2 fL 81-99 [facility] Mean corpuscular hemoglobin (MCH) determinationOrdered By: COLLETTE PARKER on 06-24-2024 MCH (RBC) [Entitic mass] 31.0 pg 27.0-32.0 [facility] Mean corpuscular hemoglobin concentration (MCHC) determinationOrdered By: COLLETTE PARKER on 06-24-2024 MCHC (RBC) [Mass/Vol] 34.0 g/dL 32-36 [facility] Mean platelet volume determi nationOrdered By: COLLETTE PARKER on 06-24-2024 Platelet mean volume (Bld) [Entitic vol] 10.1 fL 6.2-12.0 [facility] Microscopic analysis of urin e for red blood cells (RBC)Ordered By: COLLETTE PARKER on 06-24-2024 Microscopic analysis of urine for red blood cells (RBC) 0 SEEN /hpf 0-5 [facility] Urine RBC 0 SEEN /hpf 0-5 [facility] Monocyte percentageOrdered B y: COLLETTE PARKER on 06-24-2024 Monocytes/100 WBC (Bld) 12.6 % High 0-10 [facility] Mucus LM Ql (Urine sed)Order ed By: COLLETTE PARKER on 06-24-2024 Mucus Ql (Urine sed) 0 SEEN /hpf [facility] Neutrophil percentageOrdered By: COLLETTE PARKER on 06-24-2024 Neutrophils/100 WBC (Bld) 65.2 % 47-70 [facility] Nitrite Test strip Ql (U)Ord ered By: COLLETTE PARKER on 06-24-2024 Nitrite Ql (U) Negative Negative [facility] Nucleated red blood cell per centageOrdered By: COLLETTE PARKER on 06-24-2024 Nucleated RBC/100 WBC (Bld) [Ratio] 0 % 0-5 [facility] Platelet countOrdered By: RA KINA PARKER on 06-24-2024 Platelets (Bld) [#/Vol] 347 10*3/uL 150-450 [facility] Protein Test strip Ql (U)Ord ered By: COLLETTE PARKER on 06-24-2024 Protein Ql (U) 15 mg/dl High Negative [facility] RBC Auto (Bld) [#/Vol]Ordere d By: COLLETTE PARKER on 06-24-2024 RBC (Bld) [#/Vol] 4.32 10*6/uL 4.2-5.4 [facility] Serum Creatinine AND GFRon 0 06-24-2024 Creatinine [Mass/Vol] 0.85 mg/dL Normal 0.70-1.20 [facility] Comment on above: Performed By: #### L [id number], L3100.5800, L3100.5500, L501.1000, L400.0001, L101.9900, L501.1105, L501.6710, L501.4405, L3100.5700, L100.0100 #### [facility] [address] [facility]. [place], [place], [id number] GFR/1.73 sq M.predicted among non-blacks MDRD (S/P/Bld) [Vol rate/Area] 83 mL/min/{1.73_m2} Normal >60 [facility] Comment on above: Result Comment: mL/m in/1.73m2 CKD-EPI Creatinine Equation (2020) Performed By: #### L 501.4100, L3100.5800, L3100.5500, L501.1000, L400.0001, L101.9900, L501.1105, L501.6710, L501.4405, L3100.5700, L100.0100 #### [facility] [address] [facility] [address] [place], [address] Serum DNA double strand anti body assay (units/volume)Ordered By: COLLETTE PARKER on 06-24-2024 DNA double strand Ab Qn (S) 2 [IU]/mL 0-9 [facility] Comment on above: Negative <5 Equivoca l 5 - 9 Positive >9Performed at: - [facility] [id number] Director: Ej Landers PhD, Phone: [phone] Serum creatinine measurement (mass/volume)Ordered By: COLLETTE PARKER on 06-24-2024 Creatinine [Mass/Vol] 0.85 mg/dL 0.70-1.20 [facility] Serum or plasma C reactive p rotein measurement (mass/volume)Ordered By: COLLETTE PARKER on 06-24-2024 CRP [Mass/Vol] mg/L 0.0-3.0 [facility] Serum or plasma alanine hernandez otransferase (ALT) measurementOrdered By: COLLETTE PARKER on 06-24-2024 ALT [Catalytic activity/Vol] 16 U/L <35 [facility] Serum or plasma complement C 4 measurement (mass/volume)Ordered By: COLLETTE PARKER on 06-24-2024 Complement C4 [Mass/Vol] 20 mg/dL 12-38 [facility] Serum or plasma urea nitroge n measurement (mass/volume)Ordered By: COLLETTE PARKER on 06-24-2024 Urea nitrogen [Mass/Vol] 11 mg/dL 4-19 [facility] Squamous epithelial cells de tection in urine sediment by light microscopyOrdered By: COLLETTE PARKER on 06-24-2024 Epithelial cells.squamous LM Ql (Urine sed) 0-5 SEEN /hpf 5-10 [facility] Urinalysis, Completeon 06-24 RBC 0 SEEN Normal 0-5 [facility] Comment on above: Order Comment: CLEAN CATCH Performed By: #### L 501.4100, L3100.5800, L3100.5500, L501.1000, L400.0001, L101.9900, L501.1105, L501.6710, L501.4405, L3100.5700, L100.0100 ####[facility] [address] [place], [address] Urine blood detectionOrdered By: COLLETTE PARKER on 06-24-2024 Urine Occult Blood Negative Negative [facility] Urine clarityOrdered By: KALINA PARKER on 06-24-2024 Clarity (U) Clear Clear [facility] Urine color determinationOrd ered By: COLLETTE PARKER on 06-24-2024 Color (U) Yellow Yellow [facility] Urine glucose detectionOrder ed By: COLLETTE PARKER on 06-24-2024 Glucose Ql (U) Normal mg/dl Normal [facility] Urine leukocyte esterase det ection by dipstickOrdered By: COLLETTE PARKER on 06-24-2024 Leukocyte esterase Test strip Ql (U) 25 /ul High Negative [facility] Urine pHOrdered By: COLLETTE ALSTON on 06-24-2024 pH (U) 5.0 [pH] 5.0 - 8.0 [facility] Urine sediment bacteria coun t by microscopy (number/high power field)Ordered By: COLLETTE PARKER on 06-24-2024 Bacteria LM.HPF (Urine sed) [#/Area] RARE /hpf None Seen [facility] Urine specific gravity measu rementOrdered By: COLLETTE PARKER on 06-24-2024 Specific gravity (U) [Rel density] 1.025 1.002-1.03 0 [facility] Urine urobilinogen measureme ntOrdered By: COLLETTE PARKER on 06-24-2024 Urobilinogen Ql (U) Normal mg/dl Normal [facility] Urobilinogen Ql (U)Ordered B y: COLLETTE PARKER on 06-24-2024 Urine Urobilinogen Normal mg/dl Normal [facility] White blood cell (WBC) count Ordered By: COLLETTE PARKER on 06-24-2024 WBC (Bld) [#/Vol] 7.0 10*3/uL 4.4-11.0 [facility] White blood cell countOrdere d By: COLLETTE PARKER on 06-24-2024 Urine WBC 0-5 SEEN /hpf 0-5 [facility] White blood cell count 0-5 SEEN /hpf 0-5 [facility] Direct serum free thyroxine (FT4) measurementOrdered By: Radha Caicedo on 05-17-2024 Free T4 [Mass/Vol] 0.78 ng/dL 0.76-1.46 [facility] Estradiolon 05-17-2024 ESTRADIOL 83.9 pg/mL Normal [facility] Comment on above: Result Comment: NORM AL [...] Performed By: #### L 3100.5055, L3300.1750, L501.9520, L501.81403, L506.0400 ####[facility] [address] [place], [address] Estradiol measurementOrdered By: Radha Caicedo on 05-17-2024 Estradiol (E2) Level 83.9 pg/mL [facility] Comment on above: NORMAL REFERENCE RAN [...] and LHon 05-17-2024 FSH 29.8 mIU/mL Normal [facility] Comment on above: Result Comment: NORMAL REFERENCE RANGES FEMALE FOLLICULAR 2.3 - 12.6 mIU/mL MID-CYCLE PEAK 5.2 - 17.5 mIU/mL LUTEAL 1.7 - 12.9 mIU/mL POST-MENOPAUSAL ON MHT 5.9 - 72.8 mIU/mL NOT ON MHT 12.7 - 132.2 mlU/mL MALE 0.7 - 10.8 mIU/mL Performed By: #### L 3100.5055, L3300.1750, L501.9520, L501.55588, L506.0400 ####[facility] [address] [place], [place], [address] LH 13.2 mIU/mL Normal [facility] Comment on above: Result Comment: NORMAL REFERENCE RANGES FEMALE FOLLICULAR 1.9 - 26.2 mIU/mL MID-CYCLE PEAK 22.8 - 76.1 mIU/mL LUTEAL 0.6 - 16.6 mIU/mL POST-MENOPAUSAL ON MHT 1.1 - 52.4 mIU/mL NOT ON MHT 8.6 - 61.8 mIU/mL MALE 1.2 - 10.6 mIU/mL Performed By: #### L 3100.5055, L3300.1750, L501.9520, L501.01508, L506.0400 ####[facility] [address] [place], [place], [id number] Follicle stimulating hormone (FSH) levelOrdered By: Radha Caicedo on 05-17-2024 Follicle Stimulating Hormone 29.8 mIU/mL [facility] Comment on above: NORMAL REFERENCE RAN GES FEMALE FOLLICULAR 2.3 - 12.6 mIU/mL MID-CYCLE PEAK 5.2 - 17.5 mIU/mL LUTEAL 1.7 - 12.9 mIU/mL POST-MENOPAUSAL ON MHT 5.9 - 72.8 mIU/mL NOT ON MHT 12.7 - 132.2 mlU/mL MALE 0.7 - 10.8 mIU/mL Free T3on 05-17-2024 Free T3 [Mass/Vol] 2.4 pg/mL Normal 2.18-3.98 [facility] Comment on above: Performed By: #### L 3100.5055, L3300.1750, L501.9520, L501.18776, L506.0400 ####[facility] [address] [place], [place], [id number] Free U2Busoznd By: Radha sanchez on 05-17-2024 Free T3 [Mass/Vol] 2.4 pg/mL 2.18-3.98 [facility] Free Triiodothyronine (T3) pg/dL 2.4 pg/mL 2.18-3.98 [facility] Luteinizing hormone measurem entOrdered By: Radha Caicedo on 05-17-2024 Luteinizing Hormone 13.2 mIU/mL [facility] Comment on above: NORMAL REFERENCE RAN [...] 05-17-2024 TSH Qn 1.580 uIU/mL 0.358-3.74 0 [facility] T4 Free Directon 05-17-2024 T4 FREE DIRECT 0.78 ng/dL Normal 0.76-1.46 [facility] Comment on above: Performed By: #### L 3100.5055, L3300.1750, L501.9520, L501.23649, L506.0400 ####[facility] [address] [place], [place], [address] TSH QnOrdered By: Radha Sawyer on 05-17-2024 Thyroid Stimulating Hormone (TSH) 1.580 uIU/mL 0.358-3.74 0 [facility] Thyroid Stim Hormone (TSH)on 05-17-2024 TSH 1.580 uIU/mL Normal 0.358-3.74 0 [facility] Comment on above: Performed By: #### L 3100.5055, L3300.1750, L501.9520, L501.94312, L506.0400 ####[facility] [address] 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: No Is patient in pain?: No [...] known: No Patient : No : No [facility] Medical History Small intestinal bacterial overgrowth (SIBO) Wears glasses GERD (gastroesophageal reflux disease) Non-smoker Surgical History History of endometrial ablation H/O knee surgery History of appendectomy H/O nasal septoplasty Family History Uncle Cancer Liver Social History household members: spouse number of children: 1 current occupational status: employed 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 Date Name GA/Weeks Outcome Route Bth Weight Infant Gen Labor Lgth Anesthesia Del Locatn Provider FOB Unknown Pierre 08/10/2002 HPI ANNUAL Details: PRAFUL KAHN is a 49 [...] of abnormal mammogram: no Colon cancer screening: yes-. Friend--following. Other preventative health care screenings: Keith Mosqueda- [...] normal palpati (more content not included)... 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 *BGI established 07.27.22 with early satiety ? Biochemical CBC, ESR, CMP, LFT, CRP, celiac, IBD without pertinent abnormality. ? Stool calprotectin, lactoferrin WNL ? Biochemical 08.01.22 coag, lupus, viper venom WNL ? Gastric emptying study 08.13.22 45.23 minutes ? EGD and colonoscopy 10.05.22 EGD irregular Zline 38cm; gastritis; duodenitis. ? Colonoscopy decreased sphincter tone; stool in rectum. OV 8.12.19 Feels she is doing better than previously; [...] weight ch (more content not included)... Normal [facility] Immunoglobulins G/A/Mon 12-0 IMMUNOGLOB A QN 177 mg/dL Normal 87-352 [facility] Comment on above: Order Comment: Y Performed By: #### L 100.0100, L3200.1200 #### [facility] [address] [place], [address] IMMUNOGLOB G QN 1171 mg/dL Normal 586-1602 [facility] Comment on above: Order Comment: Y Performed By: #### L 100.0100, L3200.1200 #### [facility] [address] [place], [place], [id number] IMMUNOGLOB M QN 78 mg/dL Normal 26-217 [facility] Comment on above: Order Comment: Y Result Comment: Perf ormed at: - [facility] [address] [id number] Center Line Cutter Operator: Ej Landers PhD, Phone: [phone] Performed By: #### L 100.0100, L3200.1200 #### [facility] [address] [place], [place], [id number] Absolute neutrophil countOrd ered By: Philippe Gonzalez on 02-29-2024 Neutrophils (Bld) [#/Vol] 4.0 10*3/uL 2.0-7.7 [facility] Absolute neutrophil countOrd ered By: [facility] on 02-29-2024 Neutrophils (Bld) [#/Vol] 4.0 10*3/uL 2.0-7.7 [facility] Albumin to globulin ratioOrd ered By: [facility] on 02-29-2024 Albumin/Globulin [Mass ratio] 1.2 {ratio} 0.9-2.4 [facility] Basophil percentageOrdered B y: Philippe Manzolai on 02-29-2024 Basophils/100 WBC (Bld) 1.0 % 0-1 [facility] Bilirubin directOrdered By: [facility] on 02-29-2024 Bilirubin.direct [Mass/Vol] 0.30 mg/dL 0.00-0.30 [facility] Bilirubin, totalOrdered By: [facility] on 02-29-2024 Bilirubin [Mass/Vol] 1.10 mg/dL High 0.20-1.00 [facility] Comment on above: For patients on eltr ombopag therapy, use of Dimension [place] TBIL is not recommended. Blood platelets count (numbe r/volume)Ordered By: Spreaker [facility] on 02-29-2024 Platelets (Bld) [#/Vol] 391 10*3/uL 150-450 [facility] Blood urea nitrogen (BUN)/cr eatinine ratioOrdered By: [facility] on 02-29-2024 Urea nitrogen/Creatinine [Mass ratio] 13.3 mg/mg 10-20 [facility] CBC W/Diff, Automatedon 12-0 -2023 Absolute Lymph 1.12 X10 3/uL Normal 0.83-4.51 [facility] Comment on above: Performed By: #### L 100.0100, L3200.1200 #### [facility] [address] [place], [address] Absolute Neut 4.0 X10 3/uL Normal 2.0-7.7 [facility] Comment on above: Performed By: #### L 100.0100, L3200.1200 #### [facility] [address] [place], [address] Basophils/100 WBC (Bld) 1.0 % Normal 0-1 [facility] Comment on above: Performed By: #### L 100.0100, L3200.1200 #### [facility] [address] [place], [address] Eosinophils/100 WBC (Bld) 1.8 % Normal 0-5 [facility] Comment on above: Performed By: #### L 100.0100, L3200.1200 #### [facility] [address] [place], [address] Erythrocyte distribution width (RBC) [Ratio] 12.1 % Normal 11.6-14.6 [facility] Comment on above: Performed By: #### L 100.0100, L3200.1200 #### [facility] [address] [place], [address] Hematocrit (Bld) [Volume fraction] 38.7 % Normal 37-47 [facility] Comment on above: Performed By: #### L 100.0100, L3200.1200 #### [facility] [address] [place], [address] Hemoglobin (Bld) [Mass/Vol] 13.1 g/dL Normal 12.0-15.0 [facility] Comment on above: Performed By: #### L 100.0100, L3200.1200 #### [facility] [address] [place], [address] IG% 0.500 Normal 0.0-0.9 [facility] Comment on above: Result Comment: IG% - Immature Granulocytes (promyelocytes, myelocytes and metamyelocytes) > 1% indicates that a LEFT SHIFT is Present. Performed By: #### L 100.0100, L3200.1200 #### [facility] [address] [place], [address] Lymphocytes/100 WBC (Bld) 18.1 % Low 19-41 [facility] Comment on above: Performed By: #### L 100.0100, L3200.1200 #### [facility] [address] [place], [address] MCH (RBC) [Entitic mass] 30.9 pg Normal 27.0-32.0 [facility] Comment on above: Performed By: #### L 100.0100, L3200.1200 #### [facility] [address] [place], [address] MCHC (RBC) [Mass/Vol] 33.9 g/dL Normal 32-36 [facility] Comment on above: Performed By: #### L 100.0100, L3200.1200 #### [facility] [address] [place], [address] MCV (RBC) [Entitic vol] 91.3 fL Normal 81-99 [facility] Comment on above: Performed By: #### L 100.0100, L3200.1200 #### [facility] [address] [place], [address] Monocytes/100 WBC (Bld) 13.4 % High 0-10 [facility] Comment on above: Performed By: #### L 100.0100, L3200.1200 #### [facility] [address] [place], [address] Neutrophils/100 WBC (Bld) 65.2 % Normal 47-70 [facility] Comment on above: Performed By: #### L 100.0100, L3200.1200 #### [facility] [address] [place], [address] Nucleated RBC (Bld) [#/Vol] 0 10*3/uL Normal 0-5 [facility] Comment on above: Performed By: #### L 100.0100, L3200.1200 #### [facility] [address] [place], [address] Platelet mean volume (Bld) [Entitic vol] 9.7 fL Normal 6.2-12.0 [facility] Comment on above: Performed By: #### L 100.0100, L3200.1200 #### [facility] [address] [place], [address] Platelets (Bld) [#/Vol] 391 10*3/uL Normal 150-450 [facility] Comment on above: Performed By: #### L 100.0100, L3200.1200 #### [facility] [address] [place], [address] RBC (Bld) [#/Vol] 4.24 10*6/uL Normal 4.2-5.4 [facility] Comment on above: Performed By: #### L 100.0100, L3200.1200 #### [facility] [address] [place], [address] RDW SD 40.6 fl Normal 35.1-43.9 [facility] Comment on above: Performed By: #### L 100.0100, L3200.1200 #### [facility] [address] [place], [address] WBC (Bld) [#/Vol] 6.2 10*3/uL Normal 4.4-11.0 [facility] Comment on above: Performed By: #### L 100.0100, L3200.1200 #### [facility] [address] [place], [address] CBC, Employeeon 02-29-2024 Nucleated RBC (Bld) [#/Vol] 0 10*3/uL Normal 0-5 [facility] Comment on above: Performed By: #### L 100.0200, L500.2900 ####[facility] [address] [place], [address] Absolute Lymph 1.12 X10 3/uL Normal 0.83-4.51 [facility] Comment on above: Performed By: #### L 100.0200, L500.2900 ####[facility] [address] [place], [address] Absolute Neut 4.0 X10 3/uL Normal 2.0-7.7 [facility] Comment on above: Performed By: #### L 100.0200, L500.2900 ####[facility] [address] [place], [address] Basophils/100 WBC (Bld) 1.0 % Normal 0-1 [facility] Comment on above: Performed By: #### L 100.0200, L500.2900 ####[facility] [address] [place], [address] Eosinophils/100 WBC (Bld) 1.8 % Normal 0-5 [facility] Comment on above: Performed By: #### L 100.0200, L500.2900 ####[facility] [address] [place], [address] Erythrocyte distribution width (RBC) [Ratio] 12.1 % Normal 11.6-14.6 [facility] Comment on above: Performed By: #### L 100.0200, L500.2900 ####[facility] [address] [place], [address] Hematocrit (Bld) [Volume fraction] 38.7 % Normal 37-47 [facility] Comment on above: Performed By: #### L 100.0200, L500.2900 ####[facility] [address] [place], [address] Hemoglobin (Bld) [Mass/Vol] 13.1 g/dL Normal 12.0-15.0 [facility] Comment on above: Performed By: #### L 100.0200, L500.2900 ####[facility] [address] [place], [address] IG % 0.500 Normal 0.0-0.9 [facility] Comment on above: Result Comment: IG% - Immature Granulocytes (promyelocytes, myelocytes and metamyelocytes) > 1% indicates that a LEFT SHIFT is Present. Performed By: #### L 100.0200, L500.2900 ####[facility] [address] [place], [address] Lymphocytes/100 WBC (Bld) 18.1 % Low 19-41 [facility] Comment on above: Performed By: #### L 100.0200, L500.2900 ####[facility] [address] [place], [address] MCH (RBC) [Entitic mass] 30.9 pg Normal 27.0-32.0 [facility] Comment on above: Performed By: #### L 100.0200, L500.2900 ####[facility] [address] [place], [address] MCHC (RBC) [Mass/Vol] 33.9 g/dL Normal 32-36 [facility] Comment on above: Performed By: #### L 100.0200, L500.2900 ####[facility] [address] [place], [address] MCV (RBC) [Entitic vol] 91.3 fL Normal 81-99 [facility] Comment on above: Performed By: #### L 100.0200, L500.2900 ####[facility] [address] [place], [address] Monocytes/100 WBC (Bld) 13.4 % High 0-10 [facility] Comment on above: Performed By: #### L 100.0200, L500.2900 ####[facility] [address] [place], [address] Neutrophils/100 WBC (Bld) 65.2 % Normal 47-70 [facility] Comment on above: Performed By: #### L 100.0200, L500.2900 ####[facility] [address] [place], [address] Platelet mean volume (Bld) [Entitic vol] 9.7 fL Normal 6.2-12.0 [facility] Comment on above: Performed By: #### L 100.0200, L500.2900 ####[facility] [address] [place], [address] Platelets (Bld) [#/Vol] 391 10*3/uL Normal 150-450 [facility] Comment on above: Performed By: #### L 100.0200, L500.2900 ####[facility] [address] [place], [address] RBC (Bld) [#/Vol] 4.24 10*6/uL Normal 4.2-5.4 [facility] Comment on above: Performed By: #### L 100.0200, L500.2900 ####[facility] [address] [place], [address] RDW SD 40.6 fl Normal 35.1-43.9 [facility] Comment on above: Performed By: #### L 100.0200, L500.2900 ####[facility] [address] [place], [address] WBC (Bld) [#/Vol] 6.2 10*3/uL Normal 4.4-11.0 [facility] Comment on above: Performed By: #### L 100.0200, L500.2900 ####[facility] [address] [place], [address] Carbon dioxide measurementOr dered By: [facility] on 02-29-2024 CO2 [Moles/Vol] 26.0 mmol/L 21.0-32.0 [facility] Chloride measurementOrdered By: [facility] on 02-29-2024 Chloride [Moles/Vol] 109 mmol/L High 98-107 [facility] Cholesterol/HDL ratioOrdered By: [facility] on 02-29-2024 Cholesterol.total/Choles terol in HDL [Mass ratio] 2.40 {ratio} [facility] Employee Profileon Albumin [Mass/Vol] 3.8 g/dL Normal 3.2-5.0 [facility] Comment on above: Performed By: #### L 100.0200, L500.2900 ####[facility] [address] [place], [address] Albumin/Globulin [Mass ratio] 1.2 {ratio} Normal 0.9-2.4 [facility] Comment on above: Performed By: #### L 100.0200, L500.2900 ####[facility] [address] [place], [address] ALK P 64 U/L Normal 45-117 [facility] Comment on above: Performed By: #### L 100.0200, L500.2900 ####[facility] [address] [place], [address] ALT [Catalytic activity/Vol] 23 U/L Normal 13-56 [facility] Comment on above: Performed By: #### L 100.0200, L500.2900 ####[facility] [address] [place], [address] AST [Catalytic activity/Vol] 18 U/L Normal 15-37 [facility] Comment on above: Performed By: #### L 100.0200, L500.2900 ####[facility] [address] [place], [address] Bilirubin [Mass/Vol] 1.10 mg/dL High 0.20-1.00 [facility] Comment on above: Result Comment: For patients on eltrombopag therapy, use of Dimension [place] TBIL is not recommended. Performed By: #### L 100.0200, L500.2900 ####[facility] [address] [place], [address] Bilirubin.direct [Mass/Vol] 0.30 mg/dL Normal 0.00-0.30 [facility] Comment on above: Performed By: #### L 100.0200, L500.2900 ####[facility] [address] [place], [address] BUN/CRE 13.3 RATIO Normal 10-20 [facility] Comment on above: Performed By: #### L 100.0200, L500.2900 ####[facility] [address] [place], [address] CA,Total 8.8 mg/dL Normal 8.5-10.1 [facility] Comment on above: Performed By: #### L 100.0200, L500.2900 ####[facility] [address] [place], [address] Chloride [Moles/Vol] 109 mmol/L High 98-107 [facility] Comment on above: Performed By: #### L 100.0200, L500.2900 ####[facility] [address] [place], [address] CHOL:HDL 2.40 Normal [facility] Comment on above: Performed By: #### L 100.0200, L500.2900 ####[facility] [address] [place], [address] Cholesterol [Mass/Vol] 159 mg/dL Normal 200 [facility] Comment on above: Result Comment: <200 mg/dL Desirable 200-240 mg/dL Borderline >240 mg/dL High Risk Performed By: #### L 100.0200, L500.2900 ####[facility] [address] [place], [address] Cholesterol in HDL [Mass/Vol] 67 mg/dL Normal [facility] Comment on above: Result Comment: The drugs N-Acetylcysteine and Metamizole may falsely depress this assay. Reference Range HDL <40 mg/dL Low HDL Cholesterol HDL >or= 60 mg/dL High HDL Cholesterol Performed By: #### L 100.0200, L500.2900 ####[facility] [address] [place], [address] Cholesterol in LDL [Mass/Vol] 70 mg/dL Normal 0-130 [facility] Comment on above: Performed By: #### L 100.0200, L500.2900 ####[facility] [address] [place], [address] Cholesterol in VLDL [Mass/Vol] 22 mg/dL Normal 5-40 [facility] Comment on above: Performed By: #### L 100.0200, L500.2900 ####[facility] [address] [place], [address] CO2 [Moles/Vol] 26.0 mmol/L Normal 21.0-32.0 [facility] Comment on above: Performed By: #### L 100.0200, L500.2900 ####[facility] [address] [place], [address] Creatinine [Mass/Vol] 0.83 mg/dL Normal 0.55-1.02 [facility] Comment on above: Result Comment: The validity of the calculated GFR GFRAA in patients over 70 years has not been determined. Clinical correlation is essential. Performed By: #### L 100.0200, L500.2900 ####[facility] [address] [place], [address] EST GFR - AA 93 mL/min Normal >60 [facility] Comment on above: Result Comment: Afri can [place] GFR Calc Performed By: #### L 100.0200, L500.2900 ####[facility] [address] [place], [address] GAP 4 Low 5-15 [facility] Comment on above: Performed By: #### L 100.0200, L500.2900 ####[facility] [address] [place], [address] GFR/1.73 sq M.predicted among non-blacks MDRD (S/P/Bld) [Vol rate/Area] 77 mL/min/{1.73_m2} Normal >60 [facility] Comment on above: Result Comment: Non- GFR Calc Performed By: #### L 100.0200, L500.2900 ####[facility] [address] [place], [address] Globulin (S) [Mass/Vol] 3.3 g/dL Normal 2.2-4.2 [facility] Comment on above: Performed By: #### L 100.0200, L500.2900 ####[facility] [address] [place], [address] Glucose [Mass/Vol] 86 mg/dL Normal 74-106 [facility] Comment on above: Performed By: #### L 100.0200, L500.2900 ####[facility] [address] [place], [address] LDH 196 U/L Normal 84-246 [facility] Comment on above: Performed By: #### L 100.0200, L500.2900 ####[facility] [address] [place], [address] Phosphate [Mass/Vol] 2.6 mg/dL Normal 2.5-4.9 [facility] Comment on above: Performed By: #### L 100.0200, L500.2900 ####[facility] [address] [place], [address] Potassium [Moles/Vol] 3.6 mmol/L Normal 3.5-5.1 [facility] Comment on above: Performed By: #### L 100.0200, L500.2900 ####[facility] [address] [place], [address] Sodium [Moles/Vol] 140 mmol/L Normal 136-145 [facility] Comment on above: Performed By: #### L 100.0200, L500.2900 ####[facility] [address] [place], [address] T PROT 7.1 g/dL Normal 6.4-8.2 [facility] Comment on above: Performed By: #### L 100.0200, L500.2900 ####[facility] [address] [place], [address] Triglyceride [Mass/Vol] 112 mg/dL Normal [facility] Comment on above: Result Comment: The drugs N-Acetylcysteine and Metamizole may falsely depress this assay. Serum Triglycerides Reference Interval Normal <150 mg/dL Borderline high 150 - 199 mg/dL High 200 - 499 mg/dL Very High > or = 500 mg/dL Performed By: #### L 100.0200, L500.2900 ####[facility] [address] [place], [address] Urea nitrogen [Mass/Vol] 11 mg/dL Normal 7-18 [facility] Comment on above: Performed By: #### L 100.0200, L500.2900 ####[facility] [address] [place], [address] URIC 3.3 mg/dL Normal 2.6-6.0 [facility] Comment on above: Result Comment: The drugs N-Acetylcysteine and Metamizole may falsely depress this assay. Performed By: #### L 100.0200, L500.2900 ####[facility] [address] [place], [address] Eosinophil percentageOrdered By: Philippe Gonzalez on 02-29-2024 Eosinophils/100 WBC (Bld) 1.8 % 0-5 [facility] Erythrocyte distribution wid th ratioOrdered By: Philippe Gonzalez on 02-29-2024 Erythrocyte distribution width (RBC) [Ratio] 12.1 % 11.6-14.6 [facility] Erythrocyte distribution wid th ratioOrdered By: [facility] [employer] on 02-29-2024 Erythrocyte distribution width (RBC) [Ratio] 12.1 % 11.6-14.6 [facility] Erythrocyte distribution wid th standard deviationOrdered By: Philippe Gonzalez on 02-29-2024 Erythrocyte distribution width (RBC) [Entitic vol] 40.6 fL 35.1-43.9 [facility] Estimated glomerular filtrat ion rate (GFR) AmericanOrdered By: DabKick on 02-29-2024 Estimated GFR (MDRD) Amer 93 mL/min >60 [facility] Comment on above: GFR Calc Glomerular filtration rate ( GFR) estimationOrdered By: [facility] [facility] on 02-29-2024 Estimated GFR (MDRD) Non-Af Amer 77 mL/min >60 [facility] Comment on above: Non- GFR Calc Glucose measurementOrdered B y: [employer] on 02-29-2024 Glucose [Mass/Vol] 86 mg/dL 74-106 [facility] Hematocrit Auto (Bld) [Volum e fraction]Ordered By: Philippe Gonzalez on 02-29-2024 Hematocrit (Bld) [Volume fraction] 38.7 % 37-47 [facility] Hematocrit Auto (Bld) [Volum e fraction]Ordered By: [facility] on 02-29-2024 Hematocrit (Bld) [Volume fraction] 38.7 % 37-47 [facility] Hemoglobin measurementOrdere d By: Philippe Gonzalez on 02-29-2024 Hemoglobin (Bld) [Mass/Vol] 13.1 g/dL 12.0-15.0 [facility] Hemoglobin measurementOrdere d By: [facility] on 02-29-2024 Hemoglobin (Bld) [Mass/Vol] 13.1 g/dL 12.0-15.0 [facility] High density lipoprotein (HD L) measurementOrdered By: [facility] on 02-29-2024 Cholesterol in HDL [Mass/Vol] 67 mg/dL >40 [facility] Comment on above: The drugs N-Acetylcy steine and Metamizole may falsely depress this assay. Reference Range HDL <40 mg/dL Low HDL Cholesterol HDL >or= 60 mg/dL High HDL Cholesterol IgA [Mass/Vol]Ordered By: Sherri Gonzalez on 02-29-2024 Immunoglobulin A 177 mg/dL 87-352 [facility] IgG [Mass/Vol]Ordered By: Sherri zuñiga [facility] on 02-29-2024 Immunoglobulin G 1171 mg/dL [phone] [facility] Immature granulocyte percent ageOrdered By: [facility]reaker [facility] on 02-29-2024 Immature granulocytes/100 WBC (Bld) 0.500 % 0.0-0.9 [facility] Comment on above: IG% - Immature Granu locytes (promyelocytes, myelocytes and metamyelocytes) > 1% indicates that a LEFT SHIFT is Present. Immature granulocytes/100 WB C Auto (Bld)Ordered By: Philippe Gonzalez on 02-29-2024 Immature granulocytes/100 WBC (Bld) 0.500 % 0.0-0.9 [facility] Comment on above: IG% - Immature Granu locytes (promyelocytes, myelocytes and metamyelocytes) > 1% indicates that a LEFT SHIFT is Present. Immunoglobulin M measurement Ordered By: Philippe Gonzalez on 02-29-2024 Immunoglobulin M 78 mg/dL 26-217 [facility] Comment on above: Performed at: [facility] [place], [place] [id number] Director: Ej Landers PhD, Phone: [phone] Laboratory - Chemistry and C hemistry - challengeOrdered By: [facility] on 02-29-2024 AST [Catalytic activity/Vol] 18 U/L 15-37 [facility] Lactate dehydrogenase (LDH) measurementOrdered By: [facility] on 02-29-2024 LDH [Catalytic activity/Vol] 196 U/L 84-246 [facility] Low density lipoprotein (LDL ) cholesterol measurementOrdered By: [facility] on 02-29-2024 Cholesterol in LDL [Mass/Vol] 70 mg/dL 0-130 [facility] Lymphocytes Auto (Unsp spec) [#/Vol]Ordered By: Philippe Anaislai on 02-29-2024 Lymphocytes (Bld) [#/Vol] 1.12 10*3/uL 0.83-4.51 [facility] Lymphocytes Auto (Unsp spec) [#/Vol]Ordered By: [facility] on 02-29-2024 Lymphocytes (Bld) [#/Vol] 1.12 10*3/uL 0.83-4.51 [facility] Lymphocytes/100 WBC Auto (Un sp spec)Ordered By: Philippe Gonzalez on 02-29-2024 Lymphocytes/100 WBC (Bld) 18.1 % Low 19-41 [facility] MCV (mean corpuscular volume ) determinationOrdered By: Philippe Gonzalez on 02-29-2024 MCV (RBC) [Entitic vol] 91.3 fL 81-99 [facility] MCV (mean corpuscular volume ) determinationOrdered By: [facility] on 02-29-2024 MCV (RBC) [Entitic vol] 91.3 fL 81-99 [facility] Mean corpuscular hemoglobin (MCH) determinationOrdered By: Philippe Gonzalez on 02-29-2024 MCH (RBC) [Entitic mass] 30.9 pg 27.0-32.0 [facility] Mean corpuscular hemoglobin (MCH) determinationOrdered By: [facility] on 02-29-2024 MCH (RBC) [Entitic mass] 30.9 pg 27.0-32.0 [facility] Mean corpuscular hemoglobin concentration (MCHC) determinationOrdered By: Philippe Gonzalez on 02-29-2024 MCHC (RBC) [Mass/Vol] 33.9 g/dL 32-36 [facility] Mean corpuscular hemoglobin concentration (MCHC) determinationOrdered By: DabKick on 02-29-2024 MCHC (RBC) [Mass/Vol] 33.9 g/dL 32-36 [facility] Mean platelet volume determi nationOrdered By: Philippe Anaislai on 02-29-2024 Platelet mean volume (Bld) [Entitic vol] 9.7 fL 6.2-12.0 [facility] Mean platelet volume determi nationOrdered By: DabKick on 02-29-2024 Platelet mean volume (Bld) [Entitic vol] 9.7 fL 6.2-12.0 [facility] Monocyte percentageOrdered B y: Philippe Gonzalez on 02-29-2024 Monocytes/100 WBC (Bld) 13.4 % High 0-10 [facility] Neutrophil %Ordered By: CECIL [employer] on 02-29-2024 Neutrophils/100 WBC (Bld) 65.2 % 47-70 [facility] Neutrophil percentageOrdered By: Philippe Lisa on 02-29-2024 Neutrophils/100 WBC (Bld) 65.2 % 47-70 [facility] Nucleated red blood cell per centageOrdered By: Philippe Gonzalez on 02-29-2024 Nucleated RBC/100 WBC (Bld) [Ratio] 0 % 0-5 [facility] Nucleated red blood cell per centageOrdered By: [employer]abKick on 02-29-2024 Nucleated RBC/100 WBC (Bld) [Ratio] 0 % 0-5 [facility] Phosphorus measurementOrdere d By: DabKick on 02-29-2024 Phosphorus Level 2.6 mg/dL 2.5-4.9 [facility] Platelet countOrdered By: Sherri Gonzalez on 02-29-2024 Platelets (Bld) [#/Vol] 391 10*3/uL 150-450 [facility] Potassium measurementOrdered By: DabKick on 02-29-2024 Potassium [Moles/Vol] 3.6 mmol/L 3.5-5.1 [facility] RBC Auto (Bld) [#/Vol]Ordere d By: Philippe Gonzalez on 02-29-2024 RBC (Bld) [#/Vol] 4.24 10*6/uL 4.2-5.4 [facility] RBC Auto (Bld) [#/Vol]Ordere d By: [facility] on 02-29-2024 RBC (Bld) [#/Vol] 4.24 10*6/uL 4.2-5.4 [facility] RDWOrdered By: [facility] on 02-29-2024 Erythrocyte distribution width (RBC) [Entitic vol] 40.6 fL 35.1-43.9 [facility] Reticulocytes (Bld) [#/Vol]O rdered By: [facility] on 02-29-2024 Nucleated RBC Absolute Count (auto) Not Reportable [facility] Serum anion gap measurementO rdered By: [facility] on 02-29-2024 Anion gap [Moles/Vol] 4 mmol/L Low 5-15 [facility] Serum globulin measurementOr dered By: [facility] on 02-29-2024 Globulin (S) [Mass/Vol] 3.3 g/dL 2.2-4.2 [facility] Serum or plasma alanine hernandez otransferase (ALT) measurementOrdered By: [facility] on 02-29-2024 ALT [Catalytic activity/Vol] 23 U/L 13-56 [facility] Serum or plasma albumin gem urement (mass/volume)Ordered By: [facility] on 02-29-2024 Albumin [Mass/Vol] 3.8 g/dL 3.2-5.0 [facility] Serum or plasma alkaline chris sphatase measurementOrdered By: [facility] on 02-29-2024 ALP [Catalytic activity/Vol] 64 U/L 45-117 [facility] Serum or plasma calcium gem urement (mass/volume)Ordered By: [facility] on 02-29-2024 Calcium [Mass/Vol] 8.8 mg/dL 8.5-10.1 [facility] Serum or plasma cholesterol measurement (mass/volume)Ordered By: [facility] on 02-29-2024 Cholesterol [Mass/Vol] 159 mg/dL <200 [facility] Comment on above: <200 mg/dL Desirable 200-240 mg/dL Borderline >240 mg/dL High Risk Serum or plasma creatinine m easurement (mass/volume)Ordered By: [facility] on 02-29-2024 Creatinine [Mass/Vol] 0.83 mg/dL 0.55-1.02 [facility] Comment on above: The validity of the calculated GFR & GFRAA in patients over 70 years has not been determined. Clinical correlation is essential. Serum or plasma urea nitroge n measurement (mass/volume)Ordered By: [facility] on 02-29-2024 Urea nitrogen [Mass/Vol] 11 mg/dL 7-18 [facility] Serum or plasma uric acid me asurement (mass/volume)Ordered By: [facility] on 02-29-2024 Urate [Mass/Vol] 3.3 mg/dL 2.6-6.0 [facility] Comment on above: The drugs N-Acetylcy steine and Metamizole may falsely depress this assay. Sodium levelOrdered By: [facility] on 02-29-2024 Sodium [Moles/Vol] 140 mmol/L 136-145 [facility] Total proteinOrdered By: [facility] on 02-29-2024 Protein [Mass/Vol] 7.1 g/dL 6.4-8.2 [facility] Triglycerides measurementOrd ered By: [facility] on 02-29-2024 Triglyceride [Mass/Vol] 112 mg/dL <199 [facility] Comment on above: The drugs N-Acetylcy steine and Metamizole may falsely depress this assay.Serum Triglycerides Reference Interval Normal <150 mg/dL Borderline high 150 - 199 mg/dL High 200 - 499 mg/dL Very High > or = 500 mg/dL Very low density lipoprotein (VLDL) cholesterol measurementOrdered By: [facility] on 02-29-2024 VLDL Cholesterol 22 mg/dL 5-40 [facility] White blood cell (WBC) count Ordered By: Philippe Gonzalez on 02-29-2024 WBC (Bld) [#/Vol] 6.2 10*3/uL 4.4-11.0 [facility] White blood cell (WBC) count Ordered By: [facility] on 02-29-2024 WBC (Bld) [#/Vol] 6.2 10*3/uL 4.4-11.0 [facility] Absolute lymphocyte countOrd ered By: COLLETTE PARKER on 07-03-2023 Lymphocytes Auto (Unsp spec) [#/Vol] 0.91 10*3/uL 0.83-4.51 [facility] Automated lymphocyte count a s percentage of total leukocytesOrdered By: COLLETTE PARKER on 07-03-2023 Lymphocytes/100 WBC Auto (Unsp spec) 17.8 % 19-41 [facility] Basophil percentageOrdered B y: COLLETTE PARKER on 07-03-2023 Basophil percentage 0-5 SEEN /hpf 0-5 [facility] Basophils/100 WBC (Bld) 0.8 % 0-1 [facility] Eosinophils/100 WBC (Bld) 2.2 % 0-5 [facility] Hemoglobin (Bld) [Mass/Vol] 13.0 g/dL 12.0-15.0 [facility] Monocytes/100 WBC (Bld) 16.4 % 0-10 [facility] Neutrophils (Bld) [#/Vol] 3.2 10*3/uL 2.0-7.7 [facility] Neutrophils/100 WBC (Bld) 62.6 % 47-70 [facility] WBC (Bld) [#/Vol] 5.1 10*3/uL 4.4-11.0 [facility] Bilirubin Test strip Ql (U)O rdered By: COLLETTE PARKER on 07-03-2023 Bilirubin Ql (U) Negative Negative [facility] Determination of erythrocyte mean corpuscular volume (MCV)Ordered By: COLLETTE PARKER on 07-03-2023 MCV (RBC) [Entitic vol] 92.7 fL 81-99 [facility] Erythrocyte distribution wid th ratioOrdered By: COLLETTE PARKER on 07-03-2023 Erythrocyte distribution width (RBC) [Ratio] 11.9 % 11.6-14.6 [facility] Erythrocyte distribution wid th standard deviationOrdered By: COLLETTE PARKER on 07-03-2023 Erythrocyte distribution width (RBC) [Entitic vol] 40.8 fL 35.1-43.9 [facility] Erythrocyte sedimentation ra teOrdered By: COLLETTE PARKER on 07-03-2023 ESR (Bld) [Velocity] 2 mm/h 0-30 [facility] Hematocrit Auto (Bld) [Volum e fraction]Ordered By: COLLETTE PARKER on 07-03-2023 Hematocrit (Bld) [Volume fraction] 38.3 % 37-47 [facility] Immature granulocytes/100 WB C Auto (Bld)Ordered By: COLLETTE PARKER on 07-03-2023 Immature granulocytes/100 WBC (Bld) 0.200 % 0.0-0.9 [facility] Comment on above: IG% - Immature Granu locytes (promyelocytes, myelocytes and metamyelocytes) > 1% indicates that a LEFT SHIFT is Present. Ketones Test strip Ql (U)Ord ered By: COLLETTE PARKER on 07-03-2023 Ketones Ql (U) Negative Negative [facility] Laboratory - Chemistry and C hemistry - challengeOrdered By: COLLETTE PARKER on 07-03-2023 ALT [Catalytic activity/Vol] 24 U/L 13-56 [facility] Laboratory - Hematology and Cell countsOrdered By: COLLETTE PARKER on 07-03-2023 MCH (RBC) [Entitic mass] 31.5 pg 27.0-32.0 [facility] MCHC (RBC) [Mass/Vol] 33.9 g/dL 32-36 [facility] Nucleated RBC/100 WBC (Bld) [Ratio] 0 % 0-5 [facility] Platelet mean volume (Bld) [Entitic vol] 10.2 fL 6.2-12.0 [facility] Platelets (Bld) [#/Vol] 408 10*3/uL 150-450 [facility] Mucus LM Ql (Urine sed)Order ed By: COLLETTE PARKER on 07-03-2023 Mucus Ql (Urine sed) 0 SEEN /hpf [facility] Nitrite Test strip Ql (U)Ord ered By: COLLETTE PARKER on 07-03-2023 Nitrite Ql (U) Negative Negative [facility] No Panel InformationOrdered By: COLLETTE PARKER on 07-03-2023 Urine RBC 0 SEEN /hpf 0-5 [facility] C-Reactive Protein Extended Range < 2.90 mg/L 0.0-3.0 [facility] Comment on above: C-Reactive Protein ( CRP) provides useful information for thediagnosis, therapy and monitoring of inflammatory processesand associated diseases. For the evaluation of Relative Riskfor Cardiovascular Disease, a High Sensitivity CRP (HSCRP)should be ordered. Complement C3 118 mg/dL 82-167 [facility] Comment on above: Performed at: [facility] [address] [id number] Director: Ej Landers PhD, Phone: [phone] Estimated GFR (MDRD) Amer 80 mL/min >60 [facility] Comment on above: GFR Calc Estimated GFR (MDRD) Non-Af Amer 66 mL/min >60 [facility] Comment on above: Non- GFR Calc Protein Test strip Ql (U)Ord ered By: COLLETTE PARKER on 07-03-2023 Protein Ql (U) Negative Negative [facility] RBC Auto (Bld) [#/Vol]Ordere d By: COLLETTE PARKER on 07-03-2023 RBC (Bld) [#/Vol] 4.13 10*6/uL 4.2-5.4 [facility] Serum DNA double strand anti body assay (units/volume)Ordered By: COLLETTE PARKER on 07-03-2023 DNA double strand Ab Qn (S) 4 [IU]/mL 0-9 [facility] Comment on above: Negative <5 Equivoca l 5 - 9 Positive >9Performed at: [facility] [address] [id number] Director: Ej Landers PhD, Phone: [phone] Serum or plasma complement C 4 measurement (mass/volume)Ordered By: COLLETTE PARKER on 07-03-2023 Complement C4 [Mass/Vol] 20 mg/dL 12-38 [facility] Serum or plasma creatinine m easurement (mass/volume)Ordered By: COLLETTE PARKER on 07-03-2023 Creatinine [Mass/Vol] 0.95 mg/dL 0.55-1.02 [facility] Comment on above: The validity of the calculated GFR & GFRAA in patients over 70 years has not been determined. Clinical correlation is essential. Serum or plasma urea nitroge n measurement (mass/volume)Ordered By: COLLETTE PARKER on 07-03-2023 Urea nitrogen [Mass/Vol] 13 mg/dL 7-18 [facility] Squamous epithelial cells de tection in urine sediment by light microscopyOrdered By: COLLETTE PARKER on 07-03-2023 Epithelial cells.squamous LM Ql (Urine sed) 0-5 SEEN /hpf 5-10 [facility] Thin prep Papanicolaou smear with manual screeningOrdered By: COLLETTE PARKER on 07-03-2023 Thin prep Papanicolaou smear with manual screening 14 U/L 15-37 [facility] Urine blood detectionOrdered By: COLLETTE PARKER on 07-03-2023 RBC Ql (U) Negative Negative [facility] Urine clarityOrdered By: KALINA PARKER on 07-03-2023 Clarity (U) Clear Clear [facility] Urine color determinationOrd ered By: COLLETTE PARKER on 07-03-2023 Color (U) Yellow Yellow [facility] Urine glucose detectionOrder ed By: COLLETTE PARKER on 07-03-2023 Glucose Ql (U) Normal mg/dl Normal [facility] Urine leukocyte esterase det ection by dipstickOrdered By: COLLETTE PARKER on 07-03-2023 Leukocyte esterase Test strip Ql (U) 500 /ul Negative [facility] Urine pHOrdered By: COLLETTE ALSTON on 07-03-2023 pH (U) 6.5 [pH] 5.0 - 8.0 [facility] Urine sediment bacteria coun t by microscopy (number/high power field)Ordered By: COLLETTE PARKER on 07-03-2023 Bacteria LM.HPF (Urine sed) [#/Area] 0 /[HPF] None Seen [facility] Urine specific gravity measu rementOrdered By: COLLETTE PARKER on 07-03-2023 Specific gravity (U) [Rel density] 1.010 1.002-1.03 0 [facility] Urine urobilinogen measureme ntOrdered By: COLLETTE PARKER on 07-03-2023 Urobilinogen Ql (U) Normal mg/dl Normal [facility] FT4on 06-22-2023 Free T4 [Mass/Vol] 0.94 ng/dL Normal 0.89-1.76 [facility] ([place]) Comment on above: Result Comment: No te - New Reference Range in effect 19 Performed By: #### T SH, FT4 #### [facility] [address] [place] [id number] TSHon 06-22-2023 TSH 1.652 mIU/mL Normal 0.550-4.78 0 [facility] ([place]) Comment on above: Result Comment: No te - New Reference Range in effect 19 Performed By: #### T SH, FT4 #### [facility] [address] [place] [address] Clostridioides difficile nuc leic acid assay by PCROrdered By: Adam Geiger on 06-10-2023 C. difficile DNA CINTHIA+probe Ql (Unsp spec) [facility] No Panel InformationOrdered By: Adam Geiger on 06-10-2023 Giardia Antigen (JESSICA) [facility] Stool Calprotectin 35 ug/g 0-120 [facility] Comment on above: Concentration Interp retation Follow-Up< 5 - 50 ug/g Normal None>50 -120 ug/g Borderline Re-evaluate in 4-6 weeks >120 ug/g Abnormal Repeat as clinically indicatedPerformed at: [facility] [id number] Director: Ej Landers PhD, Phone: [phone] at: [facility] [id number] Director: Lopez Wells MD, Phone: [phone] Stool Neutral Fats Normal . [facility] Comment on above: Normal (<60 Droplets /HPF) Ova and parasitesOrdered By: Adam Geiger on 06-10-2023 Ova and parasites identified LM Nom (Unsp spec) [facility] Qualitative fecal fat or lip idsOrdered By: Adam Geiger on 06-10-2023 Fat Ql (Stl) Increased . [facility] Comment on above: Normal (<100 Droplet s/HPF) Stool enteric pathogen panel by probe and target amplification methodOrdered By: Adam Geiger on 06-10-2023 Gastrointestinal pathogens panel CINTHIA+probe (Stl) [facility] Stool gastrointestinal hemog lobin detection by immunologic methodOrdered By: Adam Geiger on 06-10-2023 Lower GI hemoglobin IA Ql (Stl) [facility] Stool lactoferrin detection by immunoassayOrdered By: Adam Geiger on 06-10-2023 Lactoferrin IA Ql (Stl) [facility] Stool pancreatic elastase me asurement (mass/mass)Ordered By: Adam Geiger on 06-10-2023 Elastase.pancreatic (Stl) [Mass/Mass] 170 >200 [facility] Comment on above: Result Units: ug [address] st./g Severe Pancreatic Insufficiency: <100 Moderate Pancreatic Insufficiency: 100 - 200 Normal: >200Performed at: [facility] [address] [id number] Director: Lopez Wells MD, Phone: [phone] No Panel InformationOrdered By: Judith Ramos on 04-10-2023 Follicle Stimulating Hormone 8.3 mIU/mL [facility] Comment on above: NORMAL REFERENCE RAN GES FEMALE FOLLICULAR 2.3 - 12.6 mIU/mL MID-CYCLE PEAK 5.2 - 17.5 mIU/mL LUTEAL 1.7 - 12.9 mIU/mL POST-MENOPAUSAL ON MHT 5.9 - 72.8 mIU/mL NOT ON MHT 12.7 - 132.2 mlU/mL MALE 0.7 - 10.8 mIU/mL Serum or plasma estradiol (E 2) measurement (mass/volume)Ordered By: Judith Ramos on 04-10-2023 E2 [Mass/Vol] 225.9 pg/mL [facility] Comment on above: NORMAL REFERENCE RAN GES [...] ESTRADIOL CONCENTRATION. Absolute lymphocyte countOrd ered By: CHARMAINE NAVAS on 03-06-2023 Lymphocytes Auto (Unsp spec) [#/Vol] 0.90 10*3/uL 0.83-4.51 [facility] Absolute reticulocyte countO rdered By: CHARMAINE NAVAS on 03-06-2023 Reticulocytes (Bld) [#/Vol] 0.00 10*3/uL 0-5 [facility] Basophil percentageOrdered B y: CHARMAINE NAVAS on 03-06-2023 Basophil percentage 3.2 mg/dL 2.5-4.9 [facility] Bilirubin [Mass/Vol] 0.60 mg/dL 0.20-1.00 [facility] Comment on above: For patients on eltr ombopag therapy, use of Dimension [place] TBIL is not recommended. Chloride [Moles/Vol] 106 mmol/L 98-107 [facility] Cholesterol [Mass/Vol] 159 mg/dL <200 [facility] Comment on above: <200 mg/dL Desirable 200-240 mg/dL Borderline >240 mg/dL High Risk Glucose [Mass/Vol] 86 mg/dL 74-106 [facility] LDH [Catalytic activity/Vol] 187 U/L 84-246 [facility] Neutrophils (Bld) [#/Vol] 3.7 10*3/uL 2.0-7.7 [facility] Potassium [Moles/Vol] 4.1 mmol/L 3.5-5.1 [facility] Protein [Mass/Vol] 7.5 g/dL 6.4-8.2 [facility] Sodium [Moles/Vol] 137 mmol/L 136-145 [facility] Triglyceride [Mass/Vol] 42 mg/dL <199 [facility] Comment on above: The drugs N-Acetylcy steine and Metamizole may falsely depress this assay.Serum Triglycerides Reference Interval Normal <150 mg/dL Borderline high 150 - 199 mg/dL High 200 - 499 mg/dL Very High > or = 500 mg/dL WBC (Bld) [#/Vol] 5.7 10*3/uL 4.4-11.0 [facility] Bilirubin Test strip Ql (U)O rdered By: CHARMAINE NAVAS on 03-06-2023 Bilirubin Ql (U) Negative Negative [facility] Blood erythrocytes count (nu mber/volume)Ordered By: CHARMAINE NAVAS on 03-06-2023 RBC (Bld) [#/Vol] 4.32 10*6/uL 4.2-5.4 [facility] Blood hemoglobin measurement (mass/volume)Ordered By: CHARMAINE NAVAS on 03-06-2023 Hemoglobin (Bld) [Mass/Vol] 13.5 g/dL 12.0-15.0 [facility] Blood platelet mean volumeOr dered By: CHARMAINE NAVAS on 03-06-2023 Platelet mean volume (Bld) [Entitic vol] 9.7 fL 6.2-12.0 [facility] Determination of erythrocyte mean corpuscular volume (MCV)Ordered By: CHARMAINE NAVAS on 03-06-2023 MCV (RBC) [Entitic vol] 93.5 fL 81-99 [facility] Direct bilirubinOrdered By: CHARMAINE NAVAS on 03-06-2023 Bilirubin.direct [Mass/Vol] 0.16 mg/dL 0.00-0.30 [facility] Hematocrit Auto (Bld) [Volum e fraction]Ordered By: CHARMAINE NAVAS on 03-06-2023 Hematocrit (Bld) [Volume fraction] 40.4 % 37-47 [facility] Ketones Test strip Ql (U)Ord ered By: CHARMAINE NAVAS on 03-06-2023 Ketones Ql (U) Negative Negative [facility] - Chemistry and C hemistry - challengeOrdered By: CHARMAINE NAVAS on 03-06-2023 ALP [Catalytic activity/Vol] 72 U/L 45-117 [facility] ALT [Catalytic activity/Vol] 23 U/L 13-56 [facility] Cholesterol.total/Choles terol in HDL [Mass ratio] 2.10 {ratio} [facility] CO2 [Moles/Vol] 30.0 mmol/L 21.0-32.0 [facility] Globulin (S) [Mass/Vol] 3.6 g/dL 2.2-4.2 [facility] Urea nitrogen/Creatinine [Mass ratio] 16.7 mg/mg 10-20 [facility] - Hematology and Cell countsOrdered By: CHARMAINE NAVAS on 03-06-2023 Erythrocyte distribution width (RBC) [Entitic vol] 40.1 fL 35.1-43.9 [facility] Erythrocyte distribution width (RBC) [Ratio] 11.7 % 11.6-14.6 [facility] MCH (RBC) [Entitic mass] 31.3 pg 27.0-32.0 [facility] Nucleated RBC/100 WBC (Bld) [Ratio] 0 % 0-5 [facility] MCHC Auto (RBC) [Mass/Vol]Or dered By: CHARMAINE NAVAS on 03-06-2023 MCHC (RBC) [Mass/Vol] 33.4 g/dL 32-36 [facility] Nitrite Test strip Ql (U)Ord ered By: CHARMAINE NAVAS on 03-06-2023 Nitrite Ql (U) Negative Negative [facility] No Panel InformationOrdered By: CHARMAINE NAVAS on 03-06-2023 Estimated GFR (MDRD) Amer 86 mL/min >60 [facility] Comment on above: GFR Calc Estimated GFR (MDRD) Non-Af Amer 71 mL/min >60 [facility] Comment on above: Non- GFR Calc Platelets bldOrdered By: ISAMAR NAVAS on 03-06-2023 Platelets (Bld) [#/Vol] 380 10*3/uL 150-450 [facility] Protein Test strip Ql (U)Ord ered By: CHARMAINE NAVAS on 03-06-2023 Protein Ql (U) Negative Negative [facility] Segmented neutrophils/100 WB C Auto (Bld)Ordered By: CHARMAINE NAVAS on 03-06-2023 Segmented neutrophils/100 WBC (Bld) 64.5 % 47-70 [facility] Serum or plasma albumin gem urement (mass/volume)Ordered By: CHAMRAINE NAVAS on 03-06-2023 Albumin [Mass/Vol] 3.9 g/dL 3.2-5.0 [facility] Serum or plasma albumin/glob ulin mass ratioOrdered By: CHARMAINE NAVAS on 03-06-2023 Albumin/Globulin [Mass ratio] 1.1 {ratio} 0.9-2.4 [facility] Serum or plasma calcium gem urement (mass/volume)Ordered By: CHARMAINE NAVAS on 03-06-2023 Calcium [Mass/Vol] 8.8 mg/dL 8.5-10.1 [facility] Serum or plasma cholesterol in HDL measurement (mass/volume)Ordered By: CHARMAINE NAVAS on 03-06-2023 Cholesterol in HDL [Mass/Vol] 74 mg/dL >40 [facility] Comment on above: The drugs N-Acetylcy steine and Metamizole may falsely depress this assay. Reference Range HDL <40 mg/dL Low HDL Cholesterol HDL >or= 60 mg/dL High HDL Cholesterol Serum or plasma cholesterol in VLDL measurement (mass/volume)Ordered By: CHARMAINE NAVAS on 03-06-2023 Cholesterol in VLDL [Mass/Vol] 8 mg/dL 5-40 [facility] Serum or plasma creatinine m easurement (mass/volume)Ordered By: CHARMAINE NAVAS on 03-06-2023 Creatinine [Mass/Vol] 0.90 mg/dL 0.55-1.02 [facility] Comment on above: The validity of the calculated GFR & GFRAA in patients over 70 years has not been determined. Clinical correlation is essential. Serum or plasma low density lipoprotein (LDL) cholesterol measurement (mass/volume)Ordered By: CHARMAINE NAVAS on 03-06-2023 Cholesterol in LDL [Mass/Vol] 77 mg/dL 0-130 [facility] Serum or plasma urea nitroge n measurement (mass/volume)Ordered By: CHARMAINE NAVAS on 03-06-2023 Urea nitrogen [Mass/Vol] 15 mg/dL 7-18 [facility] Serum or plasma uric acid me asurement (mass/volume)Ordered By: CHARMAINE NAVAS on 03-06-2023 Urate [Mass/Vol] 3.0 mg/dL 2.6-6.0 [facility] Comment on above: The drugs N-Acetylcy steine and Metamizole may falsely depress this assay. Thin prep Papanicolaou smear with manual screeningOrdered By: CHARMAINE NAVAS on 03-06-2023 Thin prep Papanicolaou smear with manual screening 22 U/L 15-37 [facility] Thin prep Papanicolaou smear with manual screening 1 5-15 [facility] Urine blood detectionOrdered By: CHARMAINE NAVAS on 03-06-2023 RBC Ql (U) Negative Negative [facility] Urine clarityOrdered By: ISAMAR NAVAS on 03-06-2023 Clarity (U) Clear Clear [facility] Urine color determinationOrd ered By: CHARMAINE NAVAS on 03-06-2023 Color (U) Yellow Yellow [facility] Urine glucose detectionOrder ed By: CHARMAINE NAVAS on 03-06-2023 Glucose Ql (U) Normal mg/dl Normal [facility] Urine leukocyte esterase det ection by dipstickOrdered By: CHARMAINE NAVAS on 03-06-2023 Leukocyte esterase Test strip Ql (U) Negative Negative [facility] Urine pHOrdered By: CHARMAINE CHEN on 03-06-2023 pH (U) 6.5 [pH] 5.0 - 8.0 [facility] Urine specific gravity measu rementOrdered By: CHARMAINE NAVAS on 03-06-2023 Specific gravity (U) [Rel density] 1.015 1.002-1.03 0 [facility] Urobilinogen Auto test strip Ql (U)Ordered By: CHARMAINE NAVAS on 03-06-2023 Urobilinogen Ql (U) Normal mg/dl Normal [facility] No Panel InformationOrdered By: Dr. Guzman on 08-05-2022 Anti-Cardiolipin IgM Antibody Not Reportable [facility] Serum [id number] m easurement (mass/volume)Ordered By: Martha Guzman on 08-05-2022 [id number]-[id number]-[id number] [Mass/Vol] See comment [facility] Comment on above: TEST RESULTS LIMITSB eta-2 Microglobulin, Serum 1.6 mg/L 0.6-2.4[employer]ioulite 2000 Immunochemiluminometric assay (ICMA)Values obtained with different assay methods or kits cannot be used interchangeably. Results cannot be interpreted as absolute evidence of the presence or absence of malignant disease. TESTING PERFORMED AT [facility]. ORIGINAL REPORT ON FILE IN LAB CONTAINS ADDITIONAL TEST SITE INFORMATION. Serum cardiolipin IgG antibo dy assay by immunoassay (units/volume)Ordered By: Dr. Guzman on 08-05-2022 Cardiolipin IgG IA Qn (S) See comment [facility] Comment on above: TEST RESULTS LIMITSA nticardiolipin Ab, IgG/M, QnAnticardiolipin Ab,IgG,Qn <9 GPL U/mL 0-14 Negative: <15 Indeterminate: 15 - 20 Low-Med Positive: >20 - 80 High Positive: >80Anticardiolipin Ab,IgM,Qn <9 MPL U/mL 0-12 Negative: <13 Indeterminate: 13 - 20 Low-Med Positive: >20 - 80 High Positive: >80 TESTING PERFORMED AT [facility]. ORIGINAL REPORT ON FILE IN LAB CONTAINS ADDITIONAL TEST SITE INFORMATION. Basophil percentageOrdered B y: Dr. Guzman on 08-01-2022 Basophil percentage See comment [facility] Comment on above: TEST RESULTS LIMITSS jogren's Ab, Anti-SS-A/-SS-BSjogren's Anti-SS-A 4.1 High AI 0.0-0.9Sjogren's Anti-SS-B <0.2 AI 0.0-0.9 TESTING PERFORMED AT [facility]. ORIGINAL REPORT ON FILE IN LAB CONTAINS ADDITIONAL TEST SITE INFORMATION. Basophil percentage Not Reportable [facility] Bilirubin Test strip Ql (U)O rdered By: Dr. Guzman on 08-01-2022 Bilirubin Ql (U) Negative Negative [facility] Dilute Marcos's viper venom timeOrdered By: Dr. Guzman on 08-01-2022 dRVVT Coag (PPP) [Time] 34.4 s 0.0-47.0 [facility] Ketones Test strip Ql (U)Ord ered By: Dr. Guzman on 08-01-2022 Ketones Ql (U) Negative Negative [facility] Nitrite Test strip Ql (U)Ord ered By: Dr. Guzman on 08-01-2022 Nitrite Ql (U) Negative Negative [facility] No Panel InformationOrdered By: Dr. Guzman on 08-01-2022 Miscellaneous Test See comment [facility] Comment on above: TEST RESULTS LIMITSd sDNA Crithidia luciliae IFAdsDNA Crithidia luciliae IFA Negative Negative TESTING PERFORMED AT [facility]. ORIGINAL REPORT ON FILE IN LAB CONTAINS ADDITIONAL TEST SITE INFORMATION. TEST RESULTS LIMITSA nti-CCP Ab, IgG + IgA (RDL)Anti-CCP Ab, IgG + IgA (RDL) A, <20 Units <20 Negative: <20 Weak Positive: 20 - 39 Moderate Positive: 40 - 59 Strong Positive: >59CommentsA: This test was developed and its performance characteristics determined by [facility]. It has not been cleared or approved by the Food and DrugAdministration. TESTING PERFORMED AT [facility]. ORIGINAL REPORT ON FILE IN LAB CONTAINS ADDITIONAL TEST SITE INFORMATION. [employer]ADES Antibody See comment [facility] Comment on above: TEST RESULTS LIMITSA ntiextractable Nuclear AgRNP Antibodies 0.2 AI 0.0-0.9Smith Antibodies <0.2 AI 0.0-0.9 TESTING PERFORMED AT [facility]. ORIGINAL REPORT ON FILE IN LAB CONTAINS ADDITIONAL TEST SITE INFORMATION. Protein Test strip Ql (U)Ord ered By: Dr. Guzman on 08-01-2022 Protein Ql (U) Negative Negative [facility] Serum DNA double strand anti body assay (units/volume)Ordered By: Dr. Guzman on 08-01-2022 DNA double strand Ab Qn (S) See comment [facility] Comment on above: TEST RESULTS LIMITSA nti-DNA (DS) Ab Qn 3 IU/mL 0-9 Negative <5 Equivocal 5 - 9 Positive >9 TESTING PERFORMED AT [facility]. ORIGINAL REPORT ON FILE IN LAB CONTAINS ADDITIONAL TEST SITE INFORMATION. Serum Scl-70 extractable nuc lear antibody assay (units/volume)Ordered By: Dr. Guzman on 08-01-2022 SCL-70 extractable nuclear Ab Qn (S) See comment [facility] Comment on above: TEST RESULTS LIMITSA ntiscleroderma-70Antibodies <0.2 AI 0.0-0.9 TESTING PERFORMED AT [facility]. ORIGINAL REPORT ON FILE IN LAB CONTAINS ADDITIONAL TEST SITE INFORMATION. Serum Le extractable nucl ear antibody detectionOrdered By: Dr. Guzman on 08-01-2022 Le extractable nuclear Ab Ql (S) Not Reportable [facility] Serum nuclear antibody titer by immunofluorescenceOrdered By: Dr. Guzman on 08-01-2022 Nuclear Ab IF (S) [Titer] See comment [facility] Comment on above: TEST RESULTS LIMITS Antinuclear Antibodies IFA Positive Abnormal Negative Negative < 1:80 Borderline 1:80 Positive > 1:80Homogeneous Pattern 1:160 High ICAP nomenclature: [id number] more information about Hep-2 cell patterns useANApatterns.org, the official website for the InternationalConsensus on Antinuclear Antibody (NINI) Patterns (ICAP). Note: A positive NINI result may occur in healthy individualsor be associated with a variety of diseases. Seeinterpretation below:Pattern Antigen Detected Suggested Disease Association Homogenous DNA(ds,ss,n), High titers - SLE (Smooth) Histone Speckled Sm,SUPERVISOR LAMP SHADES,SCL-70, SLE,MCTD, Scleroderma, SS-A/SS-B Sjogrens Nucleolar SCL-70,PM-1/SCL High titers Scleroderma Polymyositis/scleroderma over- lap Centromere Centromere PSS w/Crest syndrome variable Nuclear SP100 Primary Biliary CirrhosisDot [id number] Nuclear GP210, Primary Biliary CirrhosisMembrane TESTING PERFORMED AT [facility]. ORIGINAL REPORT ON FILE IN LAB CONTAINS ADDITIONAL TEST SITE INFORMATION. Serum or plasma complement C 3 measurement (mass/volume)Ordered By: Dr. Guzman on 08-01-2022 Complement C3 [Mass/Vol] 110 mg/dL 82-167 [facility] Serum or plasma complement C 4 measurement (mass/volume)Ordered By: Dr. Guzman on 08-01-2022 Complement C4 [Mass/Vol] 21 mg/dL 12-38 [facility] Serum or plasma thyroperoxid ase antibody assay (units/volume)Ordered By: Dr. Guzman on 08-01-2022 TPO Ab Qn [IU]/mL 0-34 [facility] Comment on above: Performed at: [address] Director: Ej Landers PhD, Phone: [phone] Serum rheumatoid factor dete ctionOrdered By: Dr. Guzman on 08-01-2022 Rheumatoid factor Ql (S) < 10.0 IU/mL <15 [facility] Thin prep Papanicolaou smear with manual screeningOrdered By: Dr. Guzman on 08-01-2022 Thin prep Papanicolaou smear with manual screening 36.1 sec 0.0-47.6 [facility] Thin prep Papanicolaou smear with manual screening 1.08 Ratio 0.00-1.34 [facility] Thin prep Papanicolaou smear with manual screening 37.6 sec 0.0-43.5 [facility] Thin prep Papanicolaou smear with manual screening Comment: . [facility] Comment on above: No lupus anticoagula nt was detected. Thrombin time in platelet po or plasmaOrdered By: Dr. Guzman on 08-01-2022 Thrombin time Coag (PPP) [Time] 18.4 sec 0.0-23.0 [facility] Urine blood detectionOrdered By: Dr. Guzman on 08-01-2022 RBC Ql (U) Negative Negative [facility] Urine clarityOrdered By: Dr. Guzman on 08-01-2022 Clarity (U) Clear Clear [facility] Urine color determinationOrd ered By: Dr. Guzman on 08-01-2022 Color (U) Yellow Yellow [facility] Urine glucose detectionOrder ed By: Dr. Guzman on 08-01-2022 Glucose Ql (U) Normal mg/dl Normal [facility] Urine leukocyte esterase det ection by dipstickOrdered By: Dr. Guzman on 08-01-2022 Leukocyte esterase Test strip Ql (U) 25 /ul Negative [facility] Urine pHOrdered By: Dr. Giacomo hoffman on 08-01-2022 pH (U) 5.0 [pH] 5.0 - 8.0 [facility] Urine specific gravity measu rementOrdered By: Dr. Guzman on 08-01-2022 Specific gravity (U) [Rel density] 1.020 1.002-1.03 0 [facility] Urobilinogen Auto test strip Ql (U)Ordered By: Dr. Guzman on 08-01-2022 Urobilinogen Ql (U) Normal mg/dl Normal [facility] No Panel InformationOrdered By: Cris Shafer on 07-29-2022 Stool Calprotectin 60 ug/g 0-120 [facility] Comment on above: Concentration Interp retation Follow-Up<16 - 50 ug/g Normal None>50 -120 ug/g Borderline Re-evaluate in 4-6 weeks >120 ug/g Abnormal Repeat as clinically indicatedPerformed at: - [facility] [id number] Director: Lopez Wells MD, Phone: [phone] Stool lactoferrin detection by immunoassayOrdered By: Cris Shafer on 07-29-2022 Lactoferrin IA Ql (Stl) [facility] Lactoferrin IA Ql (Stl) [facility] Absolute lymphocyte countOrd ered By: Cris Shafer on 07-27-2022 Lymphocytes Auto (Unsp spec) [#/Vol] 0.82 10*3/uL 0.83-4.51 [facility] Basophil percentageOrdered B y: Cris Shafer on 07-27-2022 Basophils/100 WBC (Bld) 0.6 % 0-1 [facility] Bilirubin [Mass/Vol] 1.00 mg/dL 0.20-1.00 [facility] Comment on above: For patients on eltr ombopag therapy, use of Dimension [place] TBIL is not recommended. Chloride [Moles/Vol] 107 mmol/L 98-107 [facility] Eosinophils/100 WBC (Bld) 0.8 % 0-5 [facility] Glucose [Mass/Vol] 73 mg/dL 74-106 [facility] Neutrophils (Bld) [#/Vol] 3.6 10*3/uL 2.0-7.7 [facility] Neutrophils/100 WBC (Bld) 71.1 % 47-70 [facility] Potassium [Moles/Vol] 3.8 mmol/L 3.5-5.1 [facility] Protein [Mass/Vol] 7.6 g/dL 6.4-8.2 [facility] Sodium [Moles/Vol] 138 mmol/L 136-145 [facility] WBC (Bld) [#/Vol] 5.1 10*3/uL 4.4-11.0 [facility] Blood erythrocytes count (nu mber/volume)Ordered By: Cris Shafer on 07-27-2022 RBC (Bld) [#/Vol] 4.39 10*6/uL 4.2-5.4 [facility] Blood hemoglobin measurement (mass/volume)Ordered By: Cris Shafer on 07-27-2022 Hemoglobin (Bld) [Mass/Vol] 14.0 g/dL 12.0-15.0 [facility] Blood lymphocytes/100 leukoc ytesOrdered By: Cris Shafer on 07-27-2022 Lymphocytes/100 WBC (Bld) 16.1 % 19-41 [facility] Blood monocytes/100 leukocyt esOrdered By: Cris Shafer on 07-27-2022 Monocytes/100 WBC (Bld) 11.2 % 0-10 [facility] Blood platelet mean volumeOr dered By: Cris Shafer on 07-27-2022 Platelet mean volume (Bld) [Entitic vol] 10.2 fL 6.2-12.0 [facility] Determination of erythrocyte mean corpuscular volume (MCV)Ordered By: Cris Shafer on 07-27-2022 MCV (RBC) [Entitic vol] 93.6 fL 81-99 [facility] Erythrocyte sedimentation ra teOrdered By: Cris Shafer on 07-27-2022 ESR (Bld) [Velocity] 4 mm/h 0-30 [facility] Hematocrit Auto (Bld) [Volum e fraction]Ordered By: Cris Sahfer on 07-27-2022 Hematocrit (Bld) [Volume fraction] 41.1 % 37-47 [facility] - Chemistry and C hemistry - challengeOrdered By: Cris Shafer on 07-27-2022 ALP [Catalytic activity/Vol] 79 U/L 45-117 [facility] ALT [Catalytic activity/Vol] 25 U/L 13-56 [facility] CO2 [Moles/Vol] 25.0 mmol/L 21.0-32.0 [facility] Globulin (S) [Mass/Vol] 3.6 g/dL 2.2-4.2 [facility] Urea nitrogen/Creatinine [Mass ratio] 22.5 mg/mg 10-20 [facility] - Hematology and Cell countsOrdered By: Cris Shafer on 07-27-2022 Erythrocyte distribution width (RBC) [Entitic vol] 40.4 fL 35.1-43.9 [facility] Erythrocyte distribution width (RBC) [Ratio] 11.8 % 11.6-14.6 [facility] Immature granulocytes/100 WBC (Bld) 0.200 % 0.0-0.9 [facility] Comment on above: IG% - Immature Granu locytes (promyelocytes, myelocytes and metamyelocytes) > 1% indicates that a LEFT SHIFT is Present. MCH (RBC) [Entitic mass] 31.9 pg 27.0-32.0 [facility] Nucleated RBC/100 WBC (Bld) [Ratio] 0 % 0-5 [facility] MCHC Auto (RBC) [Mass/Vol]Or dered By: Cris Shafer on 07-27-2022 MCHC (RBC) [Mass/Vol] 34.1 g/dL 32-36 [facility] No Panel InformationOrdered By: Cris Shafer on 07-27-2022 Endomysial IgA Antibody Negative Negative [facility] Estimated GFR (MDRD) Amer 82 mL/min >60 [facility] Comment on above: GFR Calc Estimated GFR (MDRD) Non-Af Amer 68 mL/min >60 [facility] Comment on above: Non- GFR Calc Immunoglobulin E 18 IU/mL 6-495 [facility] Comment on above: Performed at: - [facility] [address] [id number] Director: Ej Landers PhD, Phone: [phone] at: [address] [id number] Director: Lopez Wells MD, Phone: [phone] Miscellaneous Test See comment [facility] Comment on above: TEST RESULT LIMITSIB D [...] developed and its performance characteristics determined by [facility]. It has not been cleared or approved by the Food and Drug Administration. The FDA has determined that such clearance or approval is not necessary.Atypical pANCA Negative Negative Comments Pattern is not suggestive of Inflammatory Bowel Disease ___ TESTING PERFORMED AT [facility]. ORIGINAL REPORT ON FILE IN LAB CONTAINS ADDITIONAL TEST SITE INFORMATION. Platelets bldOrdered By: Krystal Shafer on 07-27-2022 Platelets (Bld) [#/Vol] 340 10*3/uL 150-450 [facility] Serum or plasma C reactive p rotein measurement (mass/volume)Ordered By: Cris Shafer on 07-27-2022 CRP [Mass/Vol] mg/L 0.0-3.0 [facility] Comment on above: C-Reactive Protein ( CRP) provides useful information for thediagnosis, therapy and monitoring of inflammatory processesand associated diseases. For the evaluation of Relative Riskfor Cardiovascular Disease, a High Sensitivity CRP (HSCRP)should be ordered. Serum or plasma IgA measurem ent (mass/volume)Ordered By: Cris Shafer on 07-27-2022 IgA [Mass/Vol] 216 mg/dL 87-352 [facility] Serum or plasma IgG measurem ent (mass/volume)Ordered By: Cris Shafer on 07-27-2022 IgG [Mass/Vol] 1311 mg/dL 586-1602 [facility] Serum or plasma IgM measurem ent (mass/volume)Ordered By: Cris Shafer on 07-27-2022 IgM [Mass/Vol] 87 mg/dL 26-217 [facility] Serum or plasma albumin gem urement (mass/volume)Ordered By: Cris Shafer on 07-27-2022 Albumin [Mass/Vol] 4.0 g/dL 3.2-5.0 [facility] Serum or plasma albumin/glob ulin mass ratioOrdered By: Cris Shafer on 07-27-2022 Albumin/Globulin [Mass ratio] 1.1 {ratio} 0.9-2.4 [facility] Serum or plasma calcium gem urement (mass/volume)Ordered By: Cris Shafer on 07-27-2022 Calcium [Mass/Vol] 9.2 mg/dL 8.5-10.1 [facility] Serum or plasma creatinine m easurement (mass/volume)Ordered By: Cris Shafer on 07-27-2022 Creatinine [Mass/Vol] 0.93 mg/dL 0.55-1.02 [facility] Comment on above: The validity of the calculated GFR & GFRAA in patients over 70 years has not been determined. Clinical correlation is essential. Serum or plasma urea nitroge n measurement (mass/volume)Ordered By: Cris Shafer on 07-27-2022 Urea nitrogen [Mass/Vol] 21 mg/dL 7-18 [facility] Serum tissue transglutaminas e IgA antibody assay (units/volume)Ordered By: Cris Shafer on 07-27-2022 tTG IgA Qn (S) <2 U/mL 0-3 [facility] Comment on above: Negative 0 - 3 Weak Positive 4 - 10 Positive >10 Tissue Transglutaminase (tTG) has been identified as the endomysial antigen. Studies have demonstr- ated that endomysial IgA antibodies have over 99% specificity for gluten sensitive enteropathy. Thin prep Papanicolaou smear with manual screeningOrdered By: Cris Shafer on 07-27-2022 Thin prep Papanicolaou smear with manual screening 17 U/L 15-37 [facility] Thin prep Papanicolaou smear with manual screening 6 5-15 [facility] Cervical or vagninal specime n microscopic examination by cytology stain (reported asOrdered By: Dr. Sandoval on 07-16-2022 Cytology report Cyto stain Doc (Cvx/Vag) Comment . [facility] Comment on above: The Pap smear is [...] DNA Probe+sig amp Ql (Cvx) Negative Negative [facility] Comment on above: This nucleic acid am plification test detects fourteen high-risk HPV types (16,18,31,33,35,39,45,51,52,56,58,59,66,68)without differentiation. Laboratory - CytologyOrdered By: Dr. Sandoval on 07-16-2022 Pharmaceutical Officer Cyto stain Nom (Cvx/Vag) [ID] Comment . [facility] Comment on above: [place], Cytot echnologist (ASCP) Laboratory - Miscellaneous t estsOrdered By: Dr. Sandoval on 07-16-2022 Service comment (Unsp spec) [Interp] Comment . [facility] Comment on above: This liquid based Th inPrep(R) pap test was screened withthe use of an image guided system. Service comment (Unsp spec) [Interp] . . [facility] Liquid-based cerv Pap + CT/G C by CINTHIA w reflex to high-risk HPV for ASCUSOrdered By: Dr. Sandoval on 07-16-2022 Cytology report Cyto stain.thin prep Doc (Cvx/Vag) Comment . [facility] Comment on above: Criteria not met, HP V Genotype not performed.Performed at: - [facility] [id number] Director: Lexii Rojas MD, Phone: [phone] at: = - [facility] [id number] Director: Lexii Rojas MD, Phone: [phone] No Panel InformationOrdered By: Dr. Sandoval on 07-16-2022 Pathology report final diagnosis Narrative Comment . [facility] Comment on above: NEGATIVE FOR INTRAEP ITHELIAL LESION OR MALIGNANCY. No Panel InformationOrdered By: Dr. Sandoval on 07-10-2022 Follicle Stimulating Hormone 31.7 mIU/mL [facility] Comment on above: NORMAL REFERENCE RAN GES FEMALE FOLLICULAR 2.3 - 12.6 mIU/mL MID-CYCLE PEAK 5.2 - 17.5 mIU/mL LUTEAL 1.7 - 12.9 mIU/mL POST-MENOPAUSAL ON MHT 5.9 - 72.8 mIU/mL NOT ON MHT 12.7 - 132.2 mlU/mL MALE 0.7 - 10.8 mIU/mL Luteinizing Hormone 30.7 mIU/mL [facility] Comment on above: NORMAL REFERENCE RAN GES FEMALE FOLLICULAR 1.9 - 26.2 mIU/mL MID-CYCLE PEAK 22.8 - 76.1 mIU/mL LUTEAL 0.6 - 16.6 mIU/mL POST-MENOPAUSAL ON MHT 1.1 - 52.4 mIU/mL NOT ON MHT 8.6 - 61.8 mIU/mL MALE 1.2 - 10.6 mIU/mL Serum or plasma estradiol (E 2) measurement (mass/volume)Ordered By: Dr. Sandoval on 07-10-2022 E2 [Mass/Vol] 113.2 pg/mL [facility] Comment on above: NORMAL REFERENCE RAN GES [...] 07-10-2022 Progesterone [Mass/Vol] 0.63 ng/mL See Comment [facility] Comment on above: Progesterone Referen ce Table: UNITS Female: Follicular 0.15 - 1.40 ng/mL Luteal 3.34 - 25.56 ng/mL Mid-luteal 4.44 - 28.03 ng/mL Postmenopausal 0.0 - 0.73 ng/mL : 1st Trimester 11.22 - 90.00 ng/mL 2nd Trimester 25.55 - 89.40 ng/mL 3rd Trimester 48.40 -422.50 ng/mL Chen 08-22-2021 JIHAN Telephone ([employer]) ----- PRAFUL KAHN ([id number]) 1975 F Date Time Provider Department 08/22/21 DEMETRIO HANCOCK During your visit today, we recorded the following information about you: Tristan Araujo RN 08/22/2021 9:[address] Hancock is requesting Praful is scheduled for a breast MRI at [facility]. Faxed order to [facility] and left voicemail for Praful giving her the phone number to call and schedule the MRI or if she would like us to schedule to please let us know. CHERYL Knight RN 09/09/2021 9:23 AM Signed Checked [facility], for breast MRI results and it does not look like Praful ever scheduled her appointment. Left voicemail ([phone]) for Praful to please let us know if she ever scheduled the exam. CHERYL Knight RN 09/09/2021 1:02 PM Signed Praful called back. She advised that she was waiting on approval from her insurance company, before [facility] would let her schedule the MRI. She states that she has been on vacation in [place], where she did not have cell service and should be home today. She will check with the hospital tomorrow. CHERYL Knight RN 09/10/2021 2:56 PM Signed Good Afternoon, You entered a referral for to have a MRI at [facility]. I need some additional information to complete the authorization- is the MRI Unilateral or Bilateral, and is it WO, W, or WWO Contrast? Thank you, Kellie Hopkins, Per Dr. Hancock, it is bilateral breast with contrast. CHERYL Knight RN 09/15/2021 8:24 AM Signed Approval for MRI of bilateral breast with contrast from [facility] Left voicemail for patient that approval has been received, so she may schedule the exam. [facility] [facility] scheduling department. Fax confirmation sheet received. Tristan Araujo RN Allergies As of Date: 08/22/2021 Noted Allergy Reaction MORPHINE 05/20/2008 4 - Hives Date Reviewed: 06/24/2021 Reviewed by: Estephania Carvalho LPN - Fully Assessed Reason for Visit: Appointment [[id number]] Cmt: Schedule MRI of breast at [facility] Prescriptions as of 09/15/2021 - ocrelizumab [...] Encounter Status:Closed by TRISTAN ARAUJO on 08/29/21 [facility] 08-01-2021 [facility] Telephone (GABRIELLE) ----- PRAFUL KAHN ([id number]) 1975 F Date Time Provider Department 08/01/21 [...] Encounter Status:Closed by MARIAM MURCIA on 09/12/21 [facility] CNOVon 06-24-2021 CN Office Visit (GABRIELLE ) ----- PRAFUL KAHN ([id number]) 1975 F Date Time Provider Department 06/24/21 3:40 PM DEMETRIO HANCOCK During your visit today, we recorded the following information about you: Temperature Pulse Blood pressure Weight 98.2 degrees 103/minute 112/68 62.6 kg Height 1.575 m Estephania CarvalhoKAREN 06/24/2021 3:39 PM Signed REVIEW OF SYSTEMS: [...] - c (more content not included)... Normal [facility] Absolute lymphocyte counton 06-13-2021 Lymphocytes Auto (Unsp spec) [#/Vol] 0.81 10*3/uL 0.83-4.51 [facility] Work Phone: Basophil percentageon 2021 Basophil percentage 0 SEEN /hpf 0-5 [facility] Work Phone: Basophil percentage 5.5 AI 0.0-0.9 [facility] Work Phone: Basophil percentage < 0.2 AI 0.0-0.9 [facility] Work Phone: Basophils/100 WBC (Bld) 0.8 % 0-1 [facility] Work Phone: Eosinophils/100 WBC (Bld) 0.8 % 0-5 [facility] Work Phone: Neutrophils (Bld) [#/Vol] 3.2 10*3/uL 2.0-7.7 [facility] Work Phone: Neutrophils/100 WBC (Bld) 66.4 % 47-70 [facility] Work Phone: WBC (Bld) [#/Vol] 4.8 10*3/uL 4.4-11.0 [facility] Work Phone: Bilirubin Test strip Ql (U)o n 06-13-2021 Bilirubin Ql (U) Negative Negative [facility] Work Phone: Blood erythrocytes count (nu mber/volume)on 06-13-2021 RBC (Bld) [#/Vol] 4.17 10*6/uL 4.2-5.4 [facility] Work Phone: Blood hemoglobin measurement (mass/volume)on 06-13-2021 Hemoglobin (Bld) [Mass/Vol] 13.7 g/dL 12.0-15.0 [facility] Work Phone: Blood lymphocytes/100 leukoc yteson 06-13-2021 Lymphocytes/100 WBC (Bld) 16.8 % 19-41 [facility] Work Phone: Blood monocytes/100 leukocyt eson 06-13-2021 Monocytes/100 WBC (Bld) 14.8 % 0-10 [facility] Work Phone: Blood platelet mean volumeon 06-13-2021 Platelet mean volume (Bld) [Entitic vol] 10.1 fL 6.2-12.0 [facility] Work Phone: Determination of erythrocyte mean corpuscular volume (MCV)on 06-13-2021 MCV (RBC) [Entitic vol] 92.6 fL 81-99 [facility] Work Phone: Hematocrit Auto (Bld) [Volum e fraction]on 06-13-2021 Hematocrit (Bld) [Volume fraction] 38.6 % 37-47 [facility] Work Phone: Ketones Test strip Ql (U)on 06-13-2021 Ketones Ql (U) Negative Negative [facility] Work Phone: Laboratory - Chemistry and C hemistry - challengeon 06-13-2021 ALT [Catalytic activity/Vol] 25 U/L 13-56 [facility] Work Phone: Laboratory - Hematology and Cell countson 06-13-2021 Erythrocyte distribution width (RBC) [Entitic vol] 41.3 fL 35.1-43.9 [facility] Work Phone: Erythrocyte distribution width (RBC) [Ratio] 12.2 % 11.6-14.6 [facility] Work Phone: Immature granulocytes/100 WBC (Bld) 0.400 % 0.0-0.9 [facility] Work Phone: Comment on above: IG% - Immature Granu locytes (promyelocytes, myelocytes and metamyelocytes) > 1% indicates that a LEFT SHIFT is Present. MCH (RBC) [Entitic mass] 32.9 pg 27.0-32.0 [facility] Work Phone: Nucleated RBC/100 WBC (Bld) [Ratio] 0 % 0-5 [facility] Work Phone: MCHC Auto (RBC) [Mass/Vol]on 06-13-2021 MCHC (RBC) [Mass/Vol] 35.5 g/dL 32-36 [facility] Work Phone: Mucus LM Ql (Urine sed)on Mucus Ql (Urine sed) 0 SEEN /hpf [facility] Work Phone: Nitrite Test strip Ql (U)on 06-13-2021 Nitrite Ql (U) Negative Negative [facility] Work Phone: No Panel Informationon 06-13 Anti-Nuclear Antibody Screen Positive Negative [facility] Work Phone: Comment on above: Performed at: [address] [id number] Director: Ej Landers PhD, Phone: [phone] Estimated GFR (MDRD) Amer 87 mL/min >60 [facility] Work Phone: Comment on above: GFR Calc Estimated GFR (MDRD) Non-Af Amer 72 mL/min >60 [facility] Work Phone: Comment on above: Non- GFR Calc Miscellaneous Test See comment [facility] Work [facility]: Comment on above: TEST RESULT [...] was developed and its performance characteristicsdetermined by [employer]. It has not been cleared orapproved by the [place] Food and Drug Administration. This test was performed in a CLIA certified laboratory and is intended for clinical purposes. [facility]. ORIGINAL REPORT ON FILE IN LAB CONTAINS ADDITIONAL TEST SITE INFORMATION. SUPERVISOR LAMP SHADES Antibody 0.2 AI 0.0-0.9 [facility] Work Phone: Platelets bldon 06-13-2021 Platelets (Bld) [#/Vol] 330 10*3/uL 150-450 [facility] Work Phone: Protein Test strip Ql (U)on 06-13-2021 Protein Ql (U) Negative Negative [facility] Work Phone: Serum DNA double strand anti body assay (units/volume)on 06-13-2021 DNA double strand Ab Qn (S) 3 [IU]/mL 0-9 [facility] Work Phone: Comment on above: Negative <5 Equivoca l 5 - 9 Positive >9 Serum Scl-70 extractable nuc lear antibody assay (units/volume)on 06-13-2021 SCL-70 extractable nuclear Ab Qn (S) <0.2 AI 0.0-0.9 [facility] Work Phone: Serum Le extractable nucl ear antibody detectionon 06-13-2021 Le extractable nuclear Ab Ql (S) <0.2 AI 0.0-0.9 [facility] Work Phone: Serum cyclic citrullinated p eptide IgG antibody assay (units/volume)on 06-13-2021 Cyclic citrullinated peptide IgG Qn 7 units 0-19 [facility] Work Phone: Comment on above: Negative <20 Weak po sitive 20 - 39 Moderate positive 40 - 59 Strong positive >59 Serum mitochondria antibody detectionon 06-13-2021 Mitochondria Ab Ql (S) <20.0 Units 0.0-20.0 [facility] Work Phone: Comment on above: Negative 0.0 - 20.0 Equivocal 20.1 - 24.9 Positive >24.9Mitochondrial (M2) Antibodies are found in 90-96% ofpatients with primary biliary cirrhosis. Serum or plasma C reactive p rotein measurement (mass/volume)on 06-13-2021 CRP [Mass/Vol] mg/L 0.0-3.0 [facility] Work Phone: Comment on above: C-Reactive Protein ( CRP) provides useful information for thediagnosis, therapy and monitoring of inflammatory processesand associated diseases. For the evaluation of Relative Riskfor Cardiovascular Disease, a High Sensitivity CRP (HSCRP)should be ordered. Serum or plasma actin IgG an tibody assay (units/volume)on 06-13-2021 Actin IgG Qn 7 Units 0-19 [facility] Work Phone: Comment on above: Negative 0 - 19 Weak positive 20 - 30 Moderate to strong positive >30 Actin Antibodies are found in 52-85% of patients with autoimmune hepatitis or chronic active hepatitis and in 22% of patients with primary biliary cirrhosis. Serum or plasma albumin gem urement (mass/volume)on 06-13-2021 Albumin [Mass/Vol] 4.1 g/dL 3.2-5.0 [facility] Work Phone: Serum or plasma complement C 3 measurement (mass/volume)on 06-13-2021 Complement C3 [Mass/Vol] 100 mg/dL 82-167 [facility] Work Phone: Serum or plasma complement C 4 measurement (mass/volume)on 06-13-2021 Complement C4 [Mass/Vol] 18 mg/dL 12-38 [facility] Work Phone: Serum or plasma creatinine m easurement (mass/volume)on 06-13-2021 Creatinine [Mass/Vol] 0.89 mg/dL 0.55-1.02 [facility] Work Phone: Comment on above: The validity of the calculated GFR & GFRAA in patients over 70 years has not been determined. Clinical correlation is essential. Serum or plasma thyroperoxid ase antibody assay (units/volume)on 06-13-2021 TPO Ab Qn [IU]/mL 0-34 [facility] Work Phone: Comment on above: Performed at: [address] [id number] Director: Ej Landers PhD, Phone: [phone] at: - [facility] [address] [id number] Director: Lopez Wells MD, Phone: [phone] Serum or plasma urea nitroge n measurement (mass/volume)on 06-13-2021 Urea nitrogen [Mass/Vol] 14 mg/dL 7-18 [facility] Work Phone: Serum parietal cell antibody assay (units/volume)on 06-13-2021 Parietal cell Ab Qn (S) 12.1 Units 0.0-20.0 [facility] Work Phone: Comment on above: Negative 0.0 - 20.0 Equivocal 20.1 - 24.9 Positive >24.9Parietal Cell Antibodies are found in 90% of patientswith pernicious anemia and 30% of first degreerelatives with pernicious anemia. Serum rheumatoid factor dete ctionon 06-13-2021 Rheumatoid factor Ql (S) < 10.0 IU/mL <15 [facility] Work Phone: Squamous epithelial cells de tection in urine sediment by light microscopyon 06-13-2021 Epithelial cells.squamous LM Ql (Urine sed) 0 SEEN /hpf 5-10 [facility] Work Phone: Thin prep Papanicolaou smear with manual screeningon 06-13-2021 Thin prep Papanicolaou smear with manual screening 22 U/L 15-37 [facility] Work Phone: Urine blood detectionon 05-27 RBC Ql (U) Negative Negative [facility] Work Phone: RBC Ql (U) 0 SEEN /hpf 0-5 [facility] Work Phone: Urine clarityon 06-13-2021 Clarity (U) Clear Clear [facility] Work Phone: Urine color determinationon 06-13-2021 Color (U) Yellow Yellow [facility] Work Phone: Urine glucose detectionon Glucose Ql (U) Normal mg/dl Normal [facility] Work Phone: Urine leukocyte esterase det ection by dipstickon 06-13-2021 Leukocyte esterase Test strip Ql (U) 25 /ul Negative [facility] Work Phone: Urine pHon 06-13-2021 pH (U) 6.0 [pH] 5.0 - 8.0 [facility] Work Phone: Urine sediment bacteria coun t by microscopy (number/high power field)on 06-13-2021 Bacteria LM.HPF (Urine sed) [#/Area] 0 /[HPF] None Seen [facility] Work Phone: Urine specific gravity measu rementon 06-13-2021 Specific gravity (U) [Rel density] 1.020 1.002-1.03 0 [facility] Work Phone: Urobilinogen Auto test strip Ql (U)on 06-13-2021 Urobilinogen Ql (U) Normal mg/dl Normal [facility] Work Phone: Cervical or vagninal specime n microscopic examination by cytology stain (reported ason 05-19-2021 Cytology report Cyto stain Doc (Cvx/Vag) Comment [facility] Work Phone: Comment on above: The Pap [...] DNA Probe+sig amp Ql (Cvx) Negative Negative [facility] Work Phone: Comment on above: This nucleic acid am plification test detects fourteen high-risk HPV types (16,18,31,33,35,39,45,51,52,56,58,59,66,68)without differentiation.Performed at: - [address] [id number] Director: Lexii Rojas MD, Phone: [phone] at: =[facility] [id number] Director: Lexii Rojas MD, Phone: [phone] Laboratory - Cytologyon 04-30 Pharmaceutical Officer Cyto stain Nom (Cvx/Vag) [ID] Comment [facility] Work Phone: Comment on above: Olivier Elizondo, Cyto technologist (ASCP) Laboratory - Miscellaneous t estson 05-19-2021 Service comment (Unsp spec) [Interp] Comment [facility] Work Phone: Comment on above: This liquid based Th inPrep(R) pap test was screened withthe use of an image guided system. Service comment (Unsp spec) [Interp] . [facility] Work Phone: No Panel Informationon 05-19 Pap Smear QC Review Comment [facility] Work Phone: Comment on above: Yoselin Reza Cyto technologist Pathology report final diagnosis Narrative Comment [facility] Work Phone: Comment on above: NEGATIVE FOR INTRAEP ITHELIAL LESION OR MALIGNANCY.THIS SPECIMEN WAS RESCREENED PART OF OUR TELECOMMUNICATOR SUPERVISOR PROGRAM. Laboratory - Microbiology an d Antimicrobial susceptibilityon 04-06-2021 SARS-CoV-2 (COVID-19) RNA CINTHIA+probe Ql (Unsp spec) Negative Not Detect [facility] Work Phone: Comment on above: Normal Reference [...] Auto (Unsp spec) [#/Vol] 0.90 10*3/uL 0.83-4.51 [facility] Work Phone: Absolute reticulocyte counto n 03-07-2021 Reticulocytes (Bld) [#/Vol] 0.00 10*3/uL 0-5 [facility] Work Phone: Basophil percentageon 2020 Basophil percentage 2.8 mg/dL 2.5-4.9 [facility] Work Phone: Bilirubin [Mass/Vol] 1.00 mg/dL 0.20-1.00 [facility] Work Phone: Comment on above: For patients on eltr ombopag therapy, use of Dimension [place] TBIL is not recommended. Chloride [Moles/Vol] 106 mmol/L 98-107 [facility] Work Phone: Cholesterol [Mass/Vol] 147 mg/dL <200 [facility] Work Phone: Comment on above: <200 mg/dL Desirable 200-240 mg/dL Borderline >240 mg/dL High Risk Glucose [Mass/Vol] 77 mg/dL 74-106 [facility] Work Phone: Comment on above: Please note revised GLUCOSE reference range effective 2017. Neutrophils (Bld) [#/Vol] 3.4 10*3/uL 2.0-7.7 [facility] Work Phone: Potassium [Moles/Vol] 4.1 mmol/L 3.5-5.1 [facility] Work Phone: Protein [Mass/Vol] 7.5 g/dL 6.4-8.2 [facility] Work Phone: Sodium [Moles/Vol] 140 mmol/L 136-145 [facility] Work Phone: Triglyceride [Mass/Vol] 90 mg/dL [facility] Work Phone: Comment on above: The drugs N-Acetylcy steine and Metamizole may falsely depress this assay.Serum Triglycerides Reference Interval Normal <150 mg/dL Borderline high 150 - 199 mg/dL High 200 - 499 mg/dL Very High > or = 500 mg/dL WBC (Bld) [#/Vol] 5.2 10*3/uL 4.4-11.0 [facility] Work Phone: Bilirubin Test strip Ql (U)o n 03-07-2021 Bilirubin Ql (U) Negative Negative [facility] Work Phone: Blood erythrocytes count (nu mber/volume)on 03-07-2021 RBC (Bld) [#/Vol] 4.30 10*6/uL 4.2-5.4 [facility] Work Phone: Blood hemoglobin measurement (mass/volume)on 03-07-2021 Hemoglobin (Bld) [Mass/Vol] 13.5 g/dL 12.0-15.0 [facility] Work Phone: Blood platelet mean volumeon 03-07-2021 Platelet mean volume (Bld) [Entitic vol] 9.8 fL 6.2-12.0 [facility] Work Phone: Determination of erythrocyte mean corpuscular volume (MCV)on 03-07-2021 MCV (RBC) [Entitic vol] 94.4 fL 81-99 [facility] Work Phone: Direct bilirubinon Bilirubin.direct [Mass/Vol] 0.25 mg/dL 0.00-0.30 [facility] Work Phone: Hematocrit Auto (Bld) [Volum e fraction]on 03-07-2021 Hematocrit (Bld) [Volume fraction] 40.6 % 37-47 [facility] Work Phone: Ketones Test strip Ql (U)on 03-07-2021 Ketones Ql (U) Negative Negative [facility] Work Phone: Laboratory - Chemistry and C hemistry - challengeon 03-07-2021 ALP [Catalytic activity/Vol] 61 U/L 45-117 [facility] Work Phone: ALT [Catalytic activity/Vol] 21 U/L 13-56 [facility] Work Phone: Cholesterol.total/Choles terol in HDL [Mass ratio] 1.80 {ratio} [facility] Work Phone: CO2 [Moles/Vol] 29.0 mmol/L 21.0-32.0 [facility] Work Phone: Globulin (S) [Mass/Vol] 3.8 g/dL 2.2-4.2 [facility] Work Phone: Urea nitrogen/Creatinine [Mass ratio] 15.1 mg/mg 10-20 [facility] Work Phone: Laboratory - Hematology and Cell countson 03-07-2021 Erythrocyte distribution width (RBC) [Entitic vol] 41.0 fL 35.1-43.9 [facility] Work Phone: Erythrocyte distribution width (RBC) [Ratio] 11.9 % 11.6-14.6 [facility] Work Phone: MCH (RBC) [Entitic mass] 31.4 pg 27.0-32.0 [facility] Work Phone: Nucleated RBC/100 WBC (Bld) [Ratio] 0 % 0-5 [facility] Work Phone: MCHC Auto (RBC) [Mass/Vol]on 03-07-2021 MCHC (RBC) [Mass/Vol] 33.3 g/dL 32-36 [facility] Work Phone: Nitrite Test strip Ql (U)on 03-07-2021 Nitrite Ql (U) Negative Negative [facility] Work Phone: No Panel Informationon 03-07 Estimated GFR (MDRD) Amer 99 mL/min >60 [facility] Work Phone: Comment on above: GFR Calc Estimated GFR (MDRD) Non-Af Amer 82 mL/min >60 [facility] Work Phone: Comment on above: Non- GFR Calc Platelets bldon 03-07-2021 Platelets (Bld) [#/Vol] 386 10*3/uL 150-450 [facility] Work Phone: Protein Test strip Ql (U)on 03-07-2021 Protein Ql (U) Negative Negative [facility] Work Phone: Segmented neutrophils/100 WB C Auto (Bld)on 03-07-2021 Segmented neutrophils/100 WBC (Bld) 65.0 % 47-70 [facility] Work Phone: Serum or plasma albumin gem urement (mass/volume)on 03-07-2021 Albumin [Mass/Vol] 3.7 g/dL 3.2-5.0 [facility] Work Phone: Serum or plasma albumin/glob ulin mass ratioon 03-07-2021 Albumin/Globulin [Mass ratio] 1.0 {ratio} 0.9-2.4 [facility] Work Phone: Serum or plasma calcium gem urement (mass/volume)on 03-07-2021 Calcium [Mass/Vol] 9.0 mg/dL 8.5-10.1 [facility] Work Phone: Serum or plasma cholesterol in HDL measurement (mass/volume)on 03-07-2021 Cholesterol in HDL [Mass/Vol] 80 mg/dL [facility] Work Phone: Comment on above: The drugs N-Acetylcy steine and Metamizole may falsely depress this assay. Reference Range HDL <40 mg/dL Low HDL Cholesterol HDL >or= 60 mg/dL High HDL Cholesterol Serum or plasma cholesterol in VLDL measurement (mass/volume)on 03-07-2021 Cholesterol in VLDL [Mass/Vol] 18 mg/dL 5-40 [facility] Work Phone: Serum or plasma creatinine m easurement (mass/volume)on 03-07-2021 Creatinine [Mass/Vol] 0.79 mg/dL 0.55-1.02 [facility] Work Phone: Comment on above: The validity of the calculated GFR & GFRAA in patients over 70 years has not been determined. Clinical correlation is essential. Serum or plasma low density lipoprotein (LDL) cholesterol measurement (mass/volume)on 03-07-2021 Cholesterol in LDL [Mass/Vol] 49 mg/dL 0-130 [facility] Work Phone: Serum or plasma urea nitroge n measurement (mass/volume)on 03-07-2021 Urea nitrogen [Mass/Vol] 12 mg/dL 7-18 [facility] Work Phone: Serum or plasma uric acid me asurement (mass/volume)on 03-07-2021 Urate [Mass/Vol] 3.1 mg/dL 2.6-6.0 [facility] Work Phone: Comment on above: The drugs N-Acetylcy steine and Metamizole may falsely depress this assay. Thin prep Papanicolaou smear with manual screeningon 03-07-2021 Thin prep Papanicolaou smear with manual screening 15 U/L 15-37 [facility] Work Phone: Thin prep Papanicolaou smear with manual screening 5 5-15 [facility] Work Phone: Thin prep Papanicolaou smear with manual screening 140 U/L 84-246 [facility] Work Phone: Urine blood detectionon 02-26-2020 RBC Ql (U) Negative Negative [facility] Work Phone: Urine clarityon 03-07-2021 Clarity (U) Clear Clear [facility] Work Phone: Urine color determinationon 03-07-2021 Color (U) Yellow Yellow [facility] Work Phone: Urine glucose detectionon Glucose Ql (U) Normal mg/dl Normal [facility] Work Phone: Urine leukocyte esterase det ection by dipstickon 03-07-2021 Leukocyte esterase Test strip Ql (U) 25 /ul Negative [facility] Work Phone: Urine pHon 03-07-2021 pH (U) 7.0 [pH] [facility] Work Phone: Urine specific gravity measu rementon 03-07-2021 Specific gravity (U) [Rel density] 1.010 [facility] Work Phone: Urobilinogen Auto test strip Ql (U)on 03-07-2021 Urobilinogen Ql (U) Normal mg/dl Normal [facility] Work Phone: CBC W/DIFFon 12-16-2020 BASO ABS 0.10 K/CU MM Normal 0-0.2 [facility] Comment on above: Performed By: #### L [id number], [id number] #### [facility] [address] [place] [address] Basophils/100 WBC (Bld) 0.9 % Normal 0-[address] [facility] Comment on above: Performed By: #### L 200.58432, [id number] #### [facility] [address] [place] [address] EOS ABS 0.10 K/CU MM Normal 0-0.5 [facility] Comment on above: Performed By: #### L [id number], [id number] #### [facility] [address] [place] [address] Eosinophils/100 WBC (Bld) 1.9 % Normal 0-5 [facility] Comment on above: Performed By: #### L 200.60464, [id number] #### [facility] [address] [place] [address] Erythrocyte distribution width (RBC) [Ratio] 12.2 % Normal 11-14.5 [facility] Comment on above: Performed By: #### L 200.46811, L200.51967 #### [facility] [address] [place], [place] [id number] Hematocrit (Bld) [Volume fraction] 38.2 % Normal 35.0-47.0 [facility] Comment on above: Performed By: #### L 200.27020, [id number] #### [facility] [address] [place] [address] Hemoglobin (Bld) [Mass/Vol] 12.7 g/dL Normal 11.5-15.5 [facility] Comment on above: Performed By: #### L 200.12930, L200.10359 #### [facility] [address] [place] [address] IMMATR GRAN ABS 0.00 K/CU MM Normal Less than 2 [facility] Comment on above: Performed By: #### L 200.89361, L200.50034 #### [facility] [address] [place] [address] IMMATURE GRAN % 0.4 % Normal Less than 2 [facility] Comment on above: Performed By: #### L 200.09642, L200.75395 #### [facility] [address] [place] [address] LYMPH ABS 1.00 K/CU MM Normal 0.9-4.4 [facility] Comment on above: Performed By: #### L 200.17137, [id number] #### [facility] [address] [place] [address] Lymphocytes/100 WBC (Bld) 14.8 % Low 20-40 [facility] Comment on above: Performed By: #### L 200.98557, [id number] #### [facility] [address] [place] [address] MCHC (RBC) [Mass/Vol] 33.2 g/dL Normal 32.0-36.0 [facility] Comment on above: Performed By: #### L 200.22453, L200.28596 #### [facility] [address] [place], [place] [id number] MCV (RBC) [Entitic vol] 94.1 fL Normal 80.0-99.[address] [facility] Comment on above: Performed By: #### L 200.19696, [id number] #### [facility] [address] [place] [address] MONO ABS 1.00 K/CU MM Normal 0.1-1.1 [facility] Comment on above: Performed By: #### L 200.54318, L200.62903 #### [facility] [address] [place] [address] Monocytes/100 WBC (Bld) 13.8 % High 2-[address] [facility] Comment on above: Performed By: #### L 200.86667, L200.28406 #### [facility] [address] [place] [address] NEUTROPHIL ABS 4.70 K/CU MM Normal 2.0-8.3 [facility] Comment on above: Performed By: #### L 200.32647, L200.48761 #### [facility] [address] [place] [address] Neutrophils/100 WBC (Bld) 68.2 % Normal 45-75 [facility] Comment on above: Performed By: #### L 200.92574, L200.84804 #### [facility] [address] [place] [address] Nucleated RBC/100 WBC (Bld) [Ratio] 0.0 % Normal Less than 1 [facility] Comment on above: Performed By: #### L 200.37670, L200.50159 #### [facility] [address] [place] [address] Platelet mean volume (Bld) [Entitic vol] 11.8 fL Normal 9.4-12.4 [facility] Comment on above: Performed By: #### L 200.48963, L200.37888 #### [facility] [address] [place] [address] PLT 350 K/CU MM Normal 150-450 [facility] Comment on above: Performed By: #### L 200.20556, L200.31382 #### [facility] [place] [address] RBC 4.06 M/CU MM Normal 3.90-5.30 [facility] Comment on above: Performed By: #### L 200.09486, L200.56189 #### [facility] [address] [place], [place] [id number] WBC 6.9 K/CUMM Normal 4.5-11.0 [facility] Comment on above: Performed By: #### L 200.09746, L200.94938 #### [facility] [address] [place] [address] CRPon 12-16-2020 CRP [Mass/Vol] 0.4 mg/L Normal LESS THAN 1 [facility] Comment on above: Performed By: #### L 550.95949 #### [facility] [address] [place], [place] [address] WSR/MODon 12-16-2020 WSR/MOD 6 MM/HR Normal 0-20 [facility] Comment on above: Performed By: #### L 200.49075, L200.92684 #### [facility] [address] [place] [address] BODY FLDon 01-29-2020 BODY FLD GRAM STAIN FEW WBC'S NO ORGANISMS SEEN NO GROWTH AFTER 5 DAYS Normal [facility] Comment on above: Performed By: #### M [id number] #### [facility] [address] [place] [address] FLC CELL W/DIFFon 01-26-2020 PATH COMMENTS Normal [facility] Comment on above: Result Comment: CYTO PREP INTERPRETATION: Hemodiluted specimen. Reviewed by Imtiaz Russo D.O., Pathologist. 01/25/2020 [id number] Performed By: #### L [id number], [id number] #### [facility] [address] [place] [address] 42051 FLC CELL W/DIFFon 01-24-2020 FLD APPEAR BLOODY Normal [facility] Comment on above: Performed By: #### L 400.52041, [id number] #### [facility] [address] [place] [address] 61647 FLD BASO 0 % Normal [facility] Comment on above: Performed By: #### L 400.25090, L400.36959 #### [facility] [address] [place] [address] 79191 FLD BLAST 0 % Normal [facility] Comment on above: Performed By: #### L 400.40585, L400.87190 #### [facility] [address] [place] [address] 70720 FLD EOS 0 % Normal [facility] Comment on above: Performed By: #### L 400.16330, [id number] #### [facility] [address] [place] [address] 91286 FLD LYMPH 63 % Normal NONE [facility] Comment on above: Performed By: #### L 400.45074, L400.47122 #### [facility] [address] [place] [address] 24531 FLD MONO/HISTIO 25 % Normal NONE [facility] Comment on above: Performed By: #### L 400.28349, [id number] #### [facility] [address] [place] [address] 54089 FLD NEUTS 12 % Normal NONE [facility] Comment on above: Performed By: #### L 400.86207, L400.76174 #### [facility] [address] [place] [address] 99937 FLD OTHER CELLS 0 Normal [facility] Comment on above: Performed By: #### L 400.75402, [id number] #### [facility] [address] [place] [address] 24277 FLD PMN% 19.1 % Normal [facility] Comment on above: Result Comment: 2 pa rt automated diff (polymorphonuclear cells) Performed By: #### L 400.70800, L400.71778 #### [facility] [address] [place], [place] [id number] FLD RBC [id number] /CU MM Normal [facility] Comment on above: Performed By: #### L 400.56735, L400.99443 #### [facility] [address] [place] [address] 50479 FLD WBC 261 /CU MM High 0-5 [facility] Comment on above: Performed By: #### L 400.85887, L400.81063 #### [facility] [address] [place], [place] [id number] FLDMN% 80.9 % Normal [facility] Comment on above: Result Comment: 2 pa rt automated diff (mononuclear cells) Performed By: #### L 400.88707, L400.75274 #### [facility] [address] [place] [address] 74620 FLUID COLOR RED Normal [facility] Comment on above: Performed By: #### L 400.94410, [id number] #### [facility] [address] [place] [address] 42912 SOURCE KNEE Normal [facility] Comment on above: Performed By: #### L 400.12607, L400.05491 #### [facility] [address] [place] [address] 15015 FLUID CRYSTALSon 01-24-2020 FLUID CRYSTALS Normal [facility] Comment on above: Result Comment: NO C RYSTALS SEEN Performed By: #### L 400.48948, L400.68960 #### [facility] [address] [phone] Vital Signs Date Time Vital Sign Value Performing Clinician Juan Francisco ha 01-07-2025 13:25-0400 Body temperature 97.9 [degF] Out [facility] Doctor [facility] 01-07-2025 13:25-0400 Diastolic blood pressure 72 mm[Hg] Out [facility] Doctor [facility] 01-07-2025 13:25-0400 Heart rate 88 /min Out [facility] Doctor [facility] 01-07-2025 13:25-0400 SaO2% (BldA) [Mass fraction] 100 % Out [facility] 01-07-2025 13:25-0400 Systolic blood pressure 130 mm[Hg] Out [facility] 05-16-2024 15:27-0500 Body height 160.02 cm COLLETTE PARKER MD Work Phone: [facility] 05-16-2024 15:27-0500 Body mass index (BMI) [Ratio] 27.6 kg/m2 COLLETTE PARKER MD Work Phone: [facility] 05-16-2024 15:27-0500 Body weight 70.76 kg COLLETTE PARKER MD Work Phone: [facility] 05-16-2024 15:27-0500 Diastolic blood pressure 82 mm[Hg] COLLETTE PARKER MD Work Phone: [facility] 05-16-2024 15:27-0500 Systolic blood pressure 133 mm[Hg] COLLETTE PARKER MD Work Phone: [facility] 04-05-2023 14:48-0500 Body height 160.02 cm HEDDLE MACHINE OPERATOR-Morris Ramos HEDDLE MACHINE OPERATOR Work Phone: [facility] 04-05-2023 14:38-0500 Body mass index (BMI) [Ratio] 26.4 kg/m2 HEDDLE MACHINE OPERATOR-Morris Ramos HEDDLE MACHINE OPERATOR Work Phone: [facility] 04-05-2023 14:38-0500 Body weight 65.48 kg HEDDLE MACHINE OPERATOR-C Judith Rachel HEDDLE MACHINE OPERATOR Work Phone: [facility] 04-05-2023 14:38-0500 Diastolic blood pressure 72 mm[Hg] HEDDLE MACHINE OPERATOR-C Judith Brookfield HEDDLE MACHINE OPERATOR Work Phone: [facility] 04-05-2023 14:38-0500 Systolic blood pressure 118 mm[Hg] HEDDLE MACHINE OPERATOR-C Judith Brookfield HEDDLE MACHINE OPERATOR Work Phone: [facility] 10-05-2022 11:55-0400 Body temperature 97.4 [degF] YOON KENDIS Work Phone: [facility] 10-05-2022 11:55-0400 Diastolic blood pressure 85 mm[Hg] YOON KENDIS Work Phone: [facility] 10-05-2022 11:55-0400 Heart rate 61 /min YOON KENDIS Work Phone: [facility] 10-05-2022 11:55-0400 Respiratory rate 16 /min YOON KENDIS Work Phone: [facility] 10-05-2022 11:55-0400 SaO2% (BldA) [Mass fraction] 100 % YOON KENDIS Work Phone: [facility] 10-05-2022 11:55-0400 Systolic blood pressure 119 mm[Hg] YOON KENDIS Work Phone: [facility] 10-05-2022 10:30-0400 Body height 160.02 cm YOON KENDIS Work Phone: [facility] 10-05-2022 10:30-0400 Body mass index (BMI) [Ratio] 24.7 kg/m2 YOON KENDIS Work Phone: [facility] 10-05-2022 10:30-0400 Body weight 63.4 kg YOON KENDIS Work Phone: [facility] 06-01-2023 11:00-0400 Body height 160.02 cm HEDDLE MACHINE OPERATOR-C Cris Hollis HEDDLE MACHINE OPERATOR Work Phone: [facility] 08-27-2022 11:00-0400 Body weight 63.23 kg HEDDLE MACHINE OPERATOR-C Cris Hollis HEDDLE MACHINE OPERATOR Work Phone: [facility] 07-27-2022 09:25-0400 Body height 160.02 cm HEDDLE MACHINE OPERATOR-C Cris Hollis HEDDLE MACHINE OPERATOR Work Phone: [facility] 07-27-2022 09:25-0400 Body mass index (BMI) [Ratio] 25.4 kg/m2 HEDDLE MACHINE OPERATOR-C Cris Hollis HEDDLE MACHINE OPERATOR Work Phone: [facility] 07-27-2022 09:25-0400 Body weight 65.31 kg HEDDLE MACHINE OPERATOR-C Cris Hollis HEDDLE MACHINE OPERATOR Work Phone: [facility] 07-27-2022 09:25-0400 Diastolic blood pressure 84 mm[Hg] HEDDLE MACHINE OPERATOR-C Cris Hollis HEDDLE MACHINE OPERATOR Work Phone: [facility] 07-27-2022 09:25-0400 Heart rate 74 /min HEDDLE MACHINE OPERATOR-C Cris Hollis HEDDLE MACHINE OPERATOR Work Phone: [facility] 07-27-2022 09:25-0400 SaO2% (BldA) [Mass fraction] 98 % HEDDLE MACHINE OPERATOR-C Cris Hollis HEDDLE MACHINE OPERATOR Work Phone: [facility] 07-27-2022 09:25-0400 Systolic blood pressure 127 mm[Hg] HEDDLE MACHINE OPERATOR-C Cris Hollis HEDDLE MACHINE OPERATOR Work Phone: [facility] 07-29-2021 14:55-0400 Body height 160.02 cm RICHI STODDARD Work Phone: [facility] Work Phone: 07-29-2021 14:55-0400 Body mass index (BMI) [Ratio] 24.4 kg/m2 RICHI Nguyễn PA Work Phone: [facility] Work Phone: 07-29-2021 14:55-0400 Body temperature 98.7 [degF] PA Sonido Nguyễn PA Work Phone: [facility] Work Phone: 07-29-2021 14:55-0400 Body weight 62.59 kg PA Sonido Nguyễn PA Work Phone: [facility] Work Phone: 07-29-2021 14:55-0400 Diastolic blood pressure 62 mm[Hg] PA Sonido Nguyễn PA Work Phone: [facility] Work Phone: 07-29-2021 14:55-0400 Heart rate 90 /min PA Sonido Nguyễn PA Work Phone: [facility] Work Phone: 07-29-2021 14:55-0400 Respiratory rate 14 /min PA Sonido Nguyễn PA Work Phone: [facility] Work Phone: 07-29-2021 14:55-0400 SaO2% (BldA) [Mass fraction] 99 % PA Sonido Nguyễn PA Work Phone: [facility] Work Phone: 07-29-2021 14:55-0400 Systolic blood pressure 110 mm[Hg] PA Sonido Nguyễn PA Work Phone: [facility] Work Phone: 06-24-2021 15:36-0400 Body height 157.5 cm Demetrio Hancock MD Work Phone: [facility] 06-24-2021 15:36-0400 Body temperature 98.2 [degF] Demetrio Hancock MD Work Phone: [facility] 06-24-2021 15:36-0400 Body weight 62.6 kg Demetrio Hancock MD Work Phone: [facility] 06-24-2021 15:36-0400 Diastolic blood pressure 68 mm[Hg] Demetrio Hancock MD Work Phone: [facility] 06-24-2021 15:36-0400 Heart rate 103 /min Demetrio Hancock MD Work Phone: [facility] 06-24-2021 15:36-0400 SaO2% (BldA) [Mass fraction] 96 % Demetrio Hancock MD Work Phone: [facility] 06-24-2021 15:36-0400 Systolic blood pressure 112 mm[Hg] Demetrio Hancock MD Work Phone: [facility] Encounters Encounter Date Encounter Type Care Provider Facility Start: 02-01-2025 ambulatory [facility] Facility:[facility] Start: 01-07-2025 End: 01-07-2025 Patient encounter procedure Abbe Hansen HEDDLE MACHINE OPERATOR-C [facility] Work Phone: Start: 01-07-2025 End: 01-07-2025 ambulatory [place] [facility] [place] Doctor -[facility] Start: 12-30-2024 End: 12-30-2024 ambulatory Out of [facility] Doctor -Laboratory Start: 12-30-2024 End: 12-30-2024 Patient encounter procedure SHANKAR NOLEN MD -Laboratory Work Phone: Start: 12-30-2024 End: 12-30-2024 ambulatory SHANKAR NOLEN Facility:[facility] Start: 10-16-2024 End: 10-16-2024 Patient encounter procedure Adam Geiger DO -[facility] Work Phone: Start: 10-16-2024 End: 10-16-2024 ambulatory COLLETTE PARKER MD Work Phone: -[facility] Start: 09-26-2024 Non-patient / Non-visit Dr. Uyen Mcguire MD -[facility] Work Phone: Start: 09-07-2024 End: 09-07-2024 ambulatory COLLETTE PARKER MD Work Phone: [facility] Work Phone: Start: 09-07-2024 End: 09-07-[address] Philippe Gonzalez MD -Laboratory Specimen Work Phone: Start: 09-07-2024 End: 09-07-2024 ambulatory Philippe Gonzalez Facility:[facility] Start: 09-04-2024 End: 09-04-2024 ambulatory COLLETTE PARKER MD Work Phone: [facility] Work Phone: Start: 09-04-2024 End: 09-04-2024 Patient encounter procedure Radha Caicedo HEDDLE MACHINE OPERATOR-C -[facility] Work Phone: Start: 09-04-2024 End: 09-04-2024 ambulatory Radha Caicedo Facility:[facility] Start: 07-15-2024 End: 07-15-2024 Patient encounter procedure OUT OF TOWN DOCTOR -Laboratory Specimen Work Phone: Start: 07-15-2024 End: 07-15-2024 ambulatory COLLETTE PARKER Facility:[facility] Start: 07-05-2024 End: 07-05-2024 ambulatory COLLETTE PARKER MD Work Phone: [facility] Work Phone: Start: 07-05-2024 End: 07-05-2024 Patient encounter procedure COLLETTE PARKER MD Work Phone: -Laboratory, Specimen Work Phone: Start: 07-05-2024 End: 07-05-2024 ambulatory COLLETTE PARKER Facility:[facility] Start: 06-24-2024 End: 06-24-2024 ambulatory COLLETTE PARKER MD Work Phone: [facility] Work Phone: Start: 06-24-2024 End: 06-24-2024 Patient encounter procedure COLLETTE PARKER MD -Laboratory, Specimen Work Phone: Start: 06-24-2024 End: 06-24-2024 ambulatory COLLETTE PARKER Facility:[facility] Start: 05-17-2024 End: 05-17-2024 Patient encounter procedure COLLETTE PARKER MD -Laboratory Work Phone: Start: 05-17-2024 End: 05-17-2024 ambulatory [facility] Facility:[facility] Start: 05-16-2024 End: 05-16-2024 Patient encounter procedure Radha Caicedo HEDDLE MACHINE OPERATOR-C -[facility] Work Phone: Start: 05-16-2024 End: 05-16-2024 ambulatory [facility] Facility[facility] Start: 04-14-2024 ambulatory Meghan Chicas lity:[facility] Start: 03-31-2024 End: 03-31-2024 Patient encounter procedure Adam Geiger -[facility] Work Phone: Start: 03-31-2024 End: 03-31-2024 ambulatory [facility] Facility:[facility] Start: 02-29-2024 End: 02-29-[address] Philippe Gonzalez MD -Laboratory Work Phone: Start: 02-29-2024 Registered Referred [employer] [facility]Employee [facility] Start: 02-29-2024 ambulatory [facility] Facility:[facility] Start: 02-29-2024 End: 02-29-2024 ambulatory [facility] Facility:[facility] Start: 07-03-2023 End: 07-03-2023 ambulatory HEDDLE MACHINE OPERATOR-C Judith Ramos HEDDLE MACHINE OPERATOR Work Phone: [facility] Work Phone: Start: 07-03-2023 End: 07-03-2023 Patient encounter procedure HEDDLE MACHINE OPERATOR-C Judith Ramos HEDDLE MACHINE OPERATOR Work Phone: [facility]-Laboratory Work Phone: Start: 06-22-2023 End: 06-27-2023 ambulatory YOON RAE MD Facility:A Start: 06-22-2023 End: 06-27-2023 Encounter for general adult medical examination without abnormal findings YOON RAE MD Facility:[facility] Start: 06-10-2023 End: 06-10-2023 ambulatory HEDDLE MACHINE OPERATOR-C Judith Ramos HEDDLE MACHINE OPERATOR Work Phone: [facility] Work Phone: Start: 06-10-2023 End: 06-10-2023 Patient encounter procedure HEDDLE MACHINE OPERATOR-C Judith Rachel HEDDLE MACHINE OPERATOR Work Phone: [facility]-Laboratory, Specimen Work Phone: Start: 04-29-2023 End: 04-29-2023 Patient encounter procedure HEDDLE MACHINE OPERATOR-C Judith Brookfield HEDDLE MACHINE OPERATOR Work Phone: [facility] Work Phone: Start: 04-14-2023 End: 04-14-2023 ambulatory HEDDLE MACHINE OPERATOR-C Judith Rachel HEDDLE MACHINE OPERATOR Work Phone: [facility] Work Phone: Start: 04-14-2023 End: 04-14-2023 Patient encounter procedure HEDDLE MACHINE OPERATOR-C Judith Rachel HEDDLE MACHINE OPERATOR Work Phone: [facility]-Ultrasound, [facility] Work Phone: Start: 04-10-2023 End: 04-10-2023 ambulatory HEDDLE MACHINE OPERATOR-C Judith Rachel HEDDLE MACHINE OPERATOR Work Phone: [facility] Work Phone: Start: 04-10-2023 End: 04-10-2023 Patient encounter procedure HEDDLE MACHINE OPERATOR-C Judith Brookfield HEDDLE MACHINE OPERATOR Work Phone: [facility]-Laboratory Work Phone: Start: 04-05-2023 End: 04-05-2023 Patient encounter procedure HEDDLE MACHINE OPERATOR-C Judith Brookfield HEDDLE MACHINE OPERATOR Work Phone: [facility] Work Phone: Start: 03-06-2023 End: 03-06-2023 ambulatory [facility] Work Phone: Start: 03-06-2023 End: 03-06-2023 Patient encounter procedure [facility]-Laboratory Work Phone: Start: 10-05-2022 Non-patient / Non-visit YOON RAE Work Phone: [facility] Start: 10-05-2022 End: 10-05-2022 Admission to same day surgery center YOON RAE Work Phone: [facility]-Endoscopy Work Phone: Start: 10-05-2022 End: 10-05-2022 ambulatory YOON RAE Work Phone: [facility] Work Phone: Start: 08-27-2022 End: 09-25-2022 ambulatory HEDDLE MACHINE OPERATOR-C Cris Hollis HEDDLE MACHINE OPERATOR Work Phone: [facility] Work Phone: Start: 08-27-2022 End: 09-25-2022 Discharged Recurring HEDDLE MACHINE OPERATOR-C Cris Hollis HEDDLE MACHINE OPERATOR Work Phone: [facility]-Nutritional Services Work Phone: Start: 08-19-2022 End: 08-19-2022 ambulatory HEDDLE MACHINE OPERATOR-C Cris Hollis HEDDLE MACHINE OPERATOR Work Phone: [facility] Work Phone: Start: 08-19-2022 End: 08-19-2022 Patient encounter procedure HEDDLE MACHINE OPERATOR-C Cris Hollis HEDDLE MACHINE OPERATOR Work Phone: [facility]-Outpatient Breast Imaging Start: 08-13-2022 End: 08-13-2022 Patient encounter procedure HEDDLE MACHINE OPERATOR-C Cris Hollis HEDDLE MACHINE OPERATOR Work Phone: [facility]-Nuclear Medicine, [facility] Start: 08-01-2022 End: 08-01-2022 ambulatory HEDDLE MACHINE OPERATOR-C Cris Hollis HEDDLE MACHINE OPERATOR Work Phone: [facility] Work Phone: Start: 08-01-2022 End: 08-01-2022 Patient encounter procedure HEDDLE MACHINE OPERATOR-C Cris Hollis HEDDLE MACHINE OPERATOR Work Phone: [facility]-Laboratory Start: 07-29-2022 End: 07-29-2022 Patient encounter procedure HEDDLE MACHINE OPERATOR-C Rcis Hollis HEDDLE MACHINE OPERATOR Work Phone: [facility]-Laboratory, Specimen Start: 07-27-2022 End: 07-27-2022 ambulatory HEDDLE MACHINE OPERATOR-C Cris Barajasne HEDDLE MACHINE OPERATOR Work Phone: [facility] Work Phone: Start: 07-27-2022 End: 07-27-2022 Patient encounter procedure HEDDLE MACHINE OPERATOR-C Cris Hollis HEDDLE MACHINE OPERATOR Work Phone: [facility] Start: 07-16-2022 End: 07-16-2022 ambulatory [facility] Work Phone: Start: 07-16-2022 End: 07-16-2022 Patient encounter procedure [facility]-Laboratory, Specimen Start: 07-10-2022 End: 07-10-2022 Patient encounter procedure [facility]Laboratory, [place] ramp agent Off Start: 12-17-2021 End: 12-17-2021 ambulatory [facility] Work Phone: Start: 12-17-2021 End: 12-17-2021 [facility] encounter [facility] Start: 09-22-2021 End: 09-22-2021 Patient encounter procedure RICHI STODDARD Work Phone: [facility] Start: 08-01-2021 Telephone encounter Demetrio arroyo MD Work Phone: General Surgery Comment on above: Release Of Medical R ecords Start: 07-29-2021 End: 07-29-2021 Patient encounter procedure RICHI STODDARD Work Phone: [facility] Start: 06-24-2021 End: 06-24-2021 Patient encounter procedure Demetrio Hancock MD Work Phone: General Surgery Comment on above: APPOINTMENT CANCELLE D (Primary Dx) Start: 06-13-2021 End: 06-13-2021 Patient encounter procedure [facility]Laboratory Start: 06-09-2021 End: 06-09-2021 Patient encounter procedure [facility]-Outpatient Breast Imaging Start: 05-19-2021 End: 05-19-2021 Patient encounter procedure [facility]-Laboratory, Specimen Start: 04-06-2021 Registered Referred [facility] Health Start: 03-07-2021 Registered Referred [facility] Health Procedures Date Procedure Procedure Detail Performing Clinician Start: 12-30-2024 Antibody to extracta ble nuclear antigen measurement Out [facility] Doctor Comment on above: Previous reported re sult: TNP AIEdited by: KEVIN on 01/01/25:1508 AMENDED REPORT 01/01/25 1508 LE Ab previously reported as: Test not performed Start: 12-30-2024 C>3< complement assay O [facility] Doctor Comment on above: Performed at: [facility] [id number] [place], [place] [id number] Director: Ej Landers PhD, Phone: [phone] Start: 12-30-2024 Electrophoresis: [id number] Out [facility] Doctor Start: 12-30-2024 Electrophoresis: [id number] Out [place] Doctor Start: 12-30-2024 Electrophoresis: perri ma globulin Out [facility] Doctor Start: 12-30-2024 SUPERVISOR LAMP SHADES antibody measurement Out [facility] Doctor Comment on above: Previous reported re sult: TNP AIEdited by: KEVIN on 01/01/25:1508 AMENDED REPORT 01/01/25 1508 SUPERVISOR LAMP SHADES Ab previously reported as: Test not performed Start: 12-30-2024 Urnls dip stick/tabl et reagent auto microscopy Out [facility] Doctor Start: 09-07-2024 Immunoglobulin M measurement COLLETTE PARKER MD Work Phone: Comment on above: Performed at: [id number] [place], [place] [id number] Director: Ej Landers PhD, Phone: [phone] Start: 09-04-2024 Screening mammography Candice PARKER MD Work Phone: Start: 07-15-2024 Urine culture COLLETTE GRUBER MD Work Phone: Start: 06-24-2024 C>3< complement assay R JULIANNE PARKER MD Work Phone: Comment on above: Performed at: [facility] [id number] [place], [place] [id number] Director: Ej Landers PhD, Phone: [phone] Start: 06-24-2024 Urnls dip stick/tabl et reagent [...] mIU/mL Start: 06-10-2023 Clostridium difficil e detection HEDDLE MACHINE OPERATOR-C Judith Ramos HEDDLE MACHINE OPERATOR Work Phone: Start: 06-10-2023 Giardia Antigen (JESSICA) N P-C Judith Ramos HEDDLE MACHINE OPERATOR Work Phone: Start: 06-10-2023 Lactoferrin measurement HEDDLE MACHINE OPERATOR-C Judith Ramos HEDDLE MACHINE OPERATOR Work Phone: Start: 06-10-2023 Measurement of occul t blood in stool specimen using immunoassay HEDDLE MACHINE OPERATOR-C Judith Ramos HEDDLE MACHINE OPERATOR Work Phone: Start: 06-10-2023 Nucleic acid assay HEDDLE MACHINE OPERATOR-C Judith Ramos HEDDLE MACHINE OPERATOR Work Phone: Start: 06-10-2023 Ova OR parasites identification HEDDLE MACHINE OPERATOR-C Judith Ramos HEDDLE MACHINE OPERATOR Work Phone: Start: 04-14-2023 Pelvic echography HEDDLE MACHINE OPERATOR-C Judith Ramos HEDDLE MACHINE OPERATOR Work Phone: Start: 10-05-2022 Colonoscopy YOON MILLER IS Work Phone: Start: 08-19-2022 Screening mammography N P-C Cris Shafer HEDDLE MACHINE OPERATOR Work Phone: Start: 08-13-2022 Radionuclide gastric emptying study HEDDLE MACHINE OPERATOR-C Cris Shafer HEDDLE MACHINE OPERATOR Work Phone: Start: 07-29-2022 Lactoferrin measurement HEDDLE MACHINE OPERATOR-C Cris Shafer HEDDLE MACHINE OPERATOR Work Phone: Start: 12-17-2021 MRI of brain with contrast Start: 09-22-2021 MRI of bilateral stone asts with contrast RICHI STODDARD Work Phone: Start: 06-09-2021 Bilateral mammography Start: 06-09-2021 Ultrasonography of breast Plan of Treatment Date Care Activity Detail Author Start: 01-07-2025 End: 01-07-2025 Patient encounter procedure URI (upper respiratory infection) [facility] Work Phone: Start: 09-07-2024 Immunoglobulin measurement [facility] Start: 10-05-2022 Patient discharge [facility] Start: 08-01-2022 Lupus anticoagulant assay [facility] Start: 08-01-2022 Procedure [facility] Start: 07-29-2022 Protein measurement [facility] Start: 04-29-2021 COVID-19 VACCINE (4 - Booster for Moderna series) COVID-19 VACCINE (4 - Booster for Moderna series) [facility] Start: 2018 COLOGUARD (FIT-DNA) COLOGUARD (FIT-DNA) [facility] Start: 2018 Colonoscopy COLONOSCOPY [facility] Start: 2018 COLORECTAL CANCER SCREENING COLORECTAL CANCER SCREENING [facility] Start: [address] COLONOGRAPHY [facility] Start: 2018 DIABETES SCREEN DIABETES SCREEN [facility] Start: 2018 FECAL OCCULT BLOOD FECAL OCCULT BLOOD [facility] Start: 2018 LIPID SCREEN LIPID SCREEN [facility] Start: 2018 SIGMOIDOSCOPY SIGMOIDOSCOPY [facility] Start: 2013 Mammography MAMMOGRAM [facility] Start: 2003 HPV TESTING HPV TESTING [facility] Start: 1994 PAP TESTING PAP TESTING [facility] Start: 1992 Urine microalbumin profile DTAP,TDAP,TD (1 - Tdap) [facility] Start: 1991 HEPATITIS C SCREENING HEPATITIS C SCREENING [facility] Start: 1991 HIV SCREENING HIV SCREENING [facility] Start: 1985 Adult depression screening assessment DEPRESSION SCREENING [facility] Start: 1979 PNEUMOCOCCAL (1 - PCV) PNEUMOCOCCAL (1 - PCV) [facility] [id number] [Mass/volume] in Serum or Plasma [facility] Cardiolipin IgG Ab [Units/volume] in Serum or Plasma [facility] Cardiolipin IgM Ab [Units/volume] in Serum or Plasma [facility] Elastase.pancreatic [Presence] in Stool [facility] Fat [Mass/mass] in Stool [facility] Fat.neutral [Presenc e] in Stool [facility] Giardia lamblia anti gen assay [facility] IgA [Mass/volume] in Serum or Plasma [facility] IgG [Mass/volume] in Serum or Plasma [facility] IgM [Mass/volume] in Serum or Plasma [facility] Lupus anticoagulant neutralization platelet [Time] in Platelet poor plasma by Coagulation assay [facility] MG Breast - bilatera l Screening [facility] MG Breast - bilatera l Screening [facility] Ova and parasites identified in Unspecified specimen by Light microscopy [facility] Partial thromboplast in time ratio [facility] Path report.final Dx Spec [facility] Patient referral [facility] Work Phone: Protein measurement [facility] Radionuclide gastric emptying study [facility] Thrombin time [facility] [place] [facility] [place] transvaginal [facility] Immunizations Immunization Date Immunization Notes Care Provider Fa cility 01-14-2023 Covid (Spikevax) [facility] 01-14-2023 influenza, injectabl e, quadrivalent, preservative free [facility] 01-03-2021 influenza, injectabl e, quadrivalent, preservative free [facility] 01-03-2021 influenza, seasonal, injectable [facility] 04-23-2020 Covid (Moderna) [facility] 03-26-2020 Covid (Moderna) [facility] 12-24-2017 influenza, injectabl e, quadrivalent, preservative free [facility] 12-24-2017 influenza, seasonal, injectable [facility] 12-16-2016 influenza, injectabl e, quadrivalent, preservative free [facility] 12-16-2016 influenza, seasonal, injectable [facility] 12-27-2015 influenza, injectabl e, quadrivalent, preservative free [facility] 12-27-2015 influenza, seasonal, injectable [facility] 12-26-2014 influenza, injectabl e, quadrivalent, preservative free [facility] 12-26-2014 influenza, seasonal, injectable [facility] 12-21-2013 influenza, injectabl e, quadrivalent, preservative free [facility] 12-21-2013 influenza, seasonal, [facility] Payers Date Payer Category Payer Self-pay [id number] 2020 Unknown MMO MMO [employer] [id number] 2020-Present [phone] [address] [place] [address] O [id number] 2009 Unknown [id number] 1975 Unknown [id number] Unknown [id number] [id number] Unknown [id number] [id number] Unknown [id number] 2.16.840.1.469434.3.579.2.462 Unknown [id number] 2.16.840.1.096927.3.579.2.462 Unknown [id number] 2.16.840.1.811876.3.579.2.462 Unknown [id number] 2.16.840.1.061884.3.579.2.462 Unknown [id number] 2.16.840.1.534747.3.579.2.462 Unknown [id number] 2.16.840.1.308077.3.579.2.462 Unknown [id number] 2.16.840.1.997537.3.579.2.462 Unknown [id number] 2.16.840.1.188454.3.579.2.462 Unknown [id number] 2.16.840.1.988152.3.579.2.462 Unknown [id number] 2.16.840.1.465416.3.579.2.462 Unknown [id number] 2.16.840.1.058788.3.579.2.462 Unknown [id number] 2.16.840.1.498149.3.579.2.462 Unknown [id number] [id number] Social History Date Type Detail Facility Start: 11-30-2014 End: 11-04-2022 Tobacco smoking status NHIS Unknown if ever smoked [facility] Start: 1975 Sex Assigned At Female [facility] Start: 08-17-2023 Tobacco smoking stat us NHIS Never smoked tobacco [facility] Start: 06-24-2021 Alcohol intake Current non-dr 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 of alcohol (finding) [facility] Start: 04-24-2009 History SDOH Alcohol Comment socially [facility] Start: 1975 Sex Assigned At Not on file [facility] Start: 06-14-2021 End: 06-24-2021 Exposure to SARS-CoV-2 (event) Not sure [facility] Start: 06-27-2024 End: 07-11-2024 Sex Female (finding) [facility] Sex Female [facility] Goals Date Patient Goal Desired Activity /State Mental Status Date Assessment Result Facility 10-05-2022 Cognitive function Voice/Name [facility] Work Phone: Clinical Notes 05-19-2021 to 01-07-2025 Note Date & Type Note Facility 01-07-2025 Progress note [facility] 10-16-2024 Evaluation note Diagnosis Onset Date Resolution Early satiety chronic October 16, 2024 3:34pm Flatulence/gas pain/belching chronic October 16, 2024 3:34pm IBS (irritable bowel syndrome) chronic October 16, 2024 3:34pm Constipation inactive October 16, 2 025 3:34pm URI (upper respiratory infection) acute January 07 1:20pm [facility] Work Phone: 1(132) 954-210302-18-2025 Evaluation note* Diagnosis Onset Date Resolution Status Admit Date Climacteric acute April 3:25pm Overweight (BMI 25.0-29.9) acute May 16, 2024 3:25pm Women's annual routine gynecological examination acute 2024 3:25pm [facility] Work Phone: 1(551) 758-364601-03-2025 Evaluation note* Diagnosis Onset Date Resolution Status Admit Date Early satiety chronic March 3:27pm Flatulence/gas pain/belching chronic March 31, 2024 3:27pm IBS (irritable bowel syndrome) chron ic March 31, 2024 3:27pm Constipation inactive March 31, 2024 3:27pm Climacteric acute April 3:25pm Overweight (BMI 25.0-29.9) acute May 16, 2024 3:25pm Women's annual routine gynecological examination acute Februa 2024 3:25pm [facility] Work Phone: 1(483) 489-638407-10-2023 Procedure [facility] 10-05-2022 Procedure [facility]07-10-2023 Procedure note [facility]07-10-2023 Procedure [facility] 07-16-2022 NotePap Smear Specimen AdequacyApril 2022 1:29pmComment. Satisfactory for evaluation. Endocervical and/or squamous metaplasticcells (endocervical component)are present.[facility] A#[id number] HealthComment on above:Satisfactory for evaluation. Endocervical and/or squamous metaplasticcells (endocervical component)are present.07-16-2022 NotePap Smear Specimen AdequacyApril 2022 1:29pmComment.Satisfactory for evaluation. Endocervical and/or squamous metaplasticcells (endocervical component)are present.[facility] A#[id number] Health Comment on above:Satisfactory for evaluation. Endocervical and/or squamous metaplasticcells (endocervical component)are present.07-16-2022 NotePap Smear Specimen AdequacyApril 2022 1:29pmComment.Satisfactory for evaluation. Endocervical and/or squamous metaplasticcells (endocervical component)are present.[facility] A#[id number] HealthComment on above: Satisfactory for evaluation. Endocervical and/or squamous metaplasticcells (endocervical component)are present.07-16-2022 NotePap Smear Specimen Adequacy Wilma 2022 1:29pmComment.Satisfactory for evaluation. Endocervical and/or squamous metaplasticcells (endocervical component)are present.[facility] A#[id number] HealthComment on above:Satisfactory for evaluation. Endocervical and/or squamous metaplasticcells (endocervical component)are present.07-16-2022 NotePap Smear Specimen AdequacyApril 2022 1:29pmComment.Satisfactory for evaluation. Endocervical and/or squamous metaplasticcells (endocervical component)are present.[facility] A#[id number] HealthComment on above:Satisfactory for evaluation. Endocervical and/or squamous metaplasticcells (endocervical component)are present.08-22-2021 NoteHNO ID: [id number] Author: Demetrio Hancock MD Service: ? Author [...] entered by the nurse and reviewed by ks Nursing Notes: Estephania Carvalho LPN 06/24/2021 3:39 [...] loss of s (more content not included)... [facility]05-06-2022 Miscellaneous Notes* Telephone Encounter - Estephania [...] was seen or not. [facility] Note* Estephania Carvalho LPN - 06/24/2021 [...] none Estephania Carvalho LPN [facility]2022 NotePap Smear Specimen AdequacyFebruary 2021 3:20pmCommentSatisfactory for evaluation. Endocervical and/or squamous metaplasticcells (endocervical component)are present.[facility] A#[id number] Health Work Phone: Comment on above:Satisfactory for evaluation. Endocervical and/or squamous metaplasticcells (endocervical component)are present.05-19-2021 NotePap Smear Specimen AdequacyFebruary 2021 3:20pm CommentSatisfactory for evaluation. Endocervical and/or squamous metaplasticcells (endocervical component)are present.[facility] A#[id number] Health Work Phone: Comment on above:Satisfactory for evaluation. Endocervical and/or squamous metaplasticcells (endocervical component)are present.Evaluation noteNo assessment information availableUc Health Work Phone: Evaluation note* Diagnosis APPOINTMENT CANCELLED- Primary [facility] Diagnosis Onset Date Resolution Status Irritant contact dermatitis due to plant acute [facility] Work Phone: Evaluation note* Diagnosis Onset Date Resolution Status Constipation chronic Early satiety chronic Flatulence/gas pain/belching [facility] Work Phone: Evaluation note* Diagnosis Onset Date Resolution Status Climacteric acute Encounter for routine gynecological examination noneactive [facility] Work Phone: Evaluation note* Diagnosis Onset Date Resolution Status Climacteric acute Encounter for routine gynecological examination noneactive Early satiety chronic Flatulence/gas pain/belching chronic IBS (irritable bowel syndrome) [facility] Work Phone: History and physical note Author Adam Friend [facility] October 05, 2022 10:23am Note Date/Time October 05, 2022 10:2 3am [facility] Medical Records Department [address] [place] [address] History & Physical Exam 10/05/22 1023 MR#: [id number] Acct: [id number] Name: PRAFUL KAHN Rep #:[id number] : 1975 47 From: Adam Friend DO PCP: YOON RAE Status[place] [facility] [place] Location: [place] [address] History and Physical Date of Admission: 10/05/22 [...] Mood: congruent mood Quality Reporting Tobacco Screening ([facility] 138) Smoking Status: Never smoker Assessment and Plan Assessment and Plan (1) Early satiety: Status: Chronic Plan: 47 yr old female with early satiety, bloating, belching, flatus, constipation. She has MS, SLE, Sjogren's, Raynaud's. Gastric emptying study, discussed possible treatments if she has gastroparesis including metoclopramide, botulinum toxin, referral to [facility] Gastroparesis Clinic EGD and colonoscopy Labs today including eval for other autoimmune conditions celiac, IBD Going to [facility] in early August Consider course of [...] CC: YOON RAE; Adam Geiger DO~ Signed [facility] Work Phone: Progress note Author Abbe Hansen [facility] Note Date/Time January 07, 2025 1 :41pm [facility] [address], [address] [place] [address] OFFICE VISIT Date of Service: 01/07/25 MR#: [id number] Acct: [id number] Name: CRISSPRAFULAJ GERBER Rep # : [id number] : 1975 Provider: TERRY Hansen Age/Sex: 49/F Location: [facility] Status: Signed Intake Vital Signs 05/16/24 15:27 01/07/25 13:25 Height 5 ft 3 in BP 130/72 H Blood Pressure Location Lt brachial Position Sitting Pulse 88 Pulse Source Monitor Temp 97.9 F Temp Source Oral Pulse Oximetry (%) 100 Oxygen Delivery Method room air Intake Visit Reasons: SORE THROAT, CONGESTION, EARS CLOGGED, Chief Complaint: Congestion, Sore Throat Accompanied by: Self Allergies morphine Allergy (Verified 01/07/25 13:20) Hives Medications ?Medication ?Instructions ?Recorded ?Confirmed ?Type hydroxychloroquine 200 mg tablet 20 mg PO DAILY 01/07/25 History multivitamin with iron 1 ea PO DAILY 08/16/1301/07 History cyclosporine 0.05 % eye drops in a 1 drp ophthalmic (e ye) Q12H 07/29/21 01/07/25 History dropperette (Restasis) ocrelizumab 30 mg/mL intravenous 600 mg IV .2X PER YEA R 07/27/22 01/07/25 History solution (Ocrevus) ergocalciferol (vitamin D2) 1,250 1,250 mcg PO .WEEKLY 10/01/22 01/07/25 History mcg (50,000 unit) capsule rifaximin 550 mg tablet (Xifaxan) 550 mg PO TID #180 T ABLETS 05/30/24 01/07/25 Rx vibegron 75 mg tablet (Gemtesa) 75 mg PO QDAY 10/16/24 01/07/25 History albuterol sulfate 90 mcg/actuation 2 puff inhalation Q 4-6H PRN 01/07/25 01/07/25 Rx aerosol inhaler shortness of breath or wheez ing #6.7 grams amoxicillin 875 mg-potassium 1 tab PO BID 7 days #14 t abs 01/07/25 01/07/25 Rx clavulanate 125 mg tablet estradiol 1 mg tablet 1 mg PO QDAY 01/07/25 History progesterone micronized 100 mg 200 mg PO DAILY Hormone replacement 01/07/25 01/07/25 History capsule Nurse's Note: Sore throat, cough, coughing up mucus, SOB, losing voice, loss of hearing. X 1 week 2 days. Taking Advil and Tylenol. 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 She has been taking Advil andTylenol. She expresses concerns regarding duration of her symptoms. She states her daughter has similar symptoms. ROS Const Constitutional: No body ache, chills, fatigue, fever(s), headache(s) or change in appetite Eyes Eyes: No blurry vision, change in vision, double vision, irritation, discharge, vision loss, dry eyes, bulging eyes, floaters, visual disturbances, eye pain, Light sensitivity, spots in vision, tunnel vision or other ENT ENT: No ear or mastoid pain, ear discharge, ear pressure, tinnitus, dizziness/vertigo, nosebleed/epistaxis, nasal congestion, nose pain, sinus pressure, sinus pain, nasal discharge, post nasal drip, headache(s), facial pain, dental pain, difficulty swallowing, bad breath, hoarseness, lip swelling, mouth lesions, mouth pain, neck pain, sore throat, tongue swelling or throat swelling Resp Respiratory: No cough, change in phlegm color, chest congestion, hemoptysis, pain on inspiration, shortness of breath, pain with cough, stridor or wheezing Cardio Cardiology: No chest pain at rest, chest pain with exertion, shortness of breath, dyspnea on exertion or lightheadedness Gastro GI: No abdominal pain, change in bowel habits or difficulty swallowing Genitourinary-Female: No burning urination or urinary frequency Musc Musculoskeletal: No joint pain or neck pain Skin Skin: No rash Neuro Neurology: No headache(s) or visual disturbances Psych Psychiatric: No change in appetite Endo Endocrine: No fatigue Aller/Imm Allergy/Immunologic: No lip swelling, throat swelling, tongue swelling or wheezing Exam Const General: cooperative, healthy appearing, comfortable and no acute distress Orientation: alert, awake and oriented x3 HENMT Head: normal to inspection and normocephalic Ears: hearing grossly normal bilaterally, external ears normal and TM's normal bilaterally Nose: external nose normal, nares normal and no nasal discharge Face and sinus: normal facial exam and sinuses nontender Mouth: oral mucosae normal, lip normal, tongue normal, oropharynx normal and moist mucous membranes Throat: posterior oropharynx normal, tonsils normal, uvula midline, posterior oropharynx abnormal cobblestoning and postnasal drainage Eyes General: appearance normal, both eyes and all related structures Neck Neck: normal visual inspection and no lymphadenopathy Carotids: normal carotid upstroke Lymphatic: no lymphadenopathy noted Chest Chest palpation & inspection: normal inspection of the chest Resp Effort & Inspection: normal respiratory effort, able to speak in complete sentences, symmetric chest movement, no cough and no stridor Auscultation: Bilateral: Clear to Auscultation Cardio Rate: regular rate Rhythm: regular rhythm Heart Sounds: S1 normal, S2 normal and no murmurs GI Inspection: normal to inspection Auscultation: normal bowel sounds Palpation: soft Skin General: no rashes or lesions noted Neuro Speech: speech normal Extrem General: normal to inspection and capillary refill normal Coding Level of Care Code Off vis,est,level 3 Diagnoses Upper respiratory tract infection, unspecified type J06.9 URI type: unspecified URI Assessment and Plan Assessment and Plan (1) URI (upper respiratory infection): Status: Acute Qualifiers: URI type: unspecified URI Qualified Code(s): J06.9 - Acute upper respiratory infection, unspecified Plan: Will add antibiotic today and refill rescue inhaler. Encouraged to get plenty ofrest, drink lots of clear liquids, and use Tylenol or Ibuprofen (unless contraindicated) for fever and comfort. Patient also educated on other symptomatic management techniques. To be seen in 7-10 days if no improvement; sooner if worsening of symptoms.? Patient advised of potential red flags and when appropriate to report to the ED.? Patient verbalized understanding and agreement with all the above. Medications: New albuterol sulfate 90 mcg/actuation 2 puffs inhalation Q4-6H PRN 6.7 grams 0RF shortness of breath or wheezing amoxicillin-pot clavulanate 875-125 mg 1 TAB PO BID 14 tabs 0RF 7 days 01/07/25 1341 <Electronically signed by Abbe Hansen N P HEDDLE MACHINE OPERATOR-C> Date _ Abbe Hansen NP HEDDLE MACHINE OPERATOR-C Cosigner Signature: Date (if applicable) CC: ~ [facility] Work Phone: Reason for referral (narrative)No reason for referral information availableWGerman Hospital Work Phone: Summary Purpose Family History No Family History Records Found Relationship Condition Age at Onset Recorded Date/T ty Not Specified Malignant neoplasm Unknown Relationship Condition Age at Onset Recorded Date/T ty uncle Malignant neoplasm Unknown Advance Directives No Advanced Directives Records Found Advance Directive Response Recorded Date/ Time Advance Directives No August 20 4 7:35am Living Will No November 30, 015 10:54am Power of Oil Processing Technician No November 30, 2014 10:54am Advance Directive Response Recorded Date/ Time Advance Directives No August 20 4 7:35am Living Will No October 01, 2022 5 :02pm Power of Oil Processing Technician No October 01, 2022 5:02pm Advance Directive Response Recorded Date/ Time Advance Directives No August 20 4 6:35am Living Will No October 01, 2022 4 :02pm Power of Oil Processing Technician No October 01, 2022 4:02pm Advance Directive Response Recorded Date/ Time Living Will No August 17, 2023 1 0:55am Do you have a Healthcare Power of Oil Processing Technician? 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 Complaint ABNORMAL MAMMO MS Chief Complaint Consult INT LABS Reason for Visit Constipation Early satiety Flatulence/gas pain/belching Chief Complaint Consult INT LABS EARLY SATIETY SCREENING Reason for Visit Constipation Early satiety Flatulence/gas pain/belching Chief Complaint Consult INT LABS EARLY SATIETY SCREENING ABD DISTENSION Reason for Visit Constipation Early satiety Flatulence/gas pain/belching 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) Reason 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 Climacteric Encounter for routine gynecological examination 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 Reason for Visit Climacteric Encounter for routine gynecological examination 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 6 MO FU Reason for Visit [...] 2024 8:31 am Chief Complaint Admit Date May 16, 2024 3:25pm MEASLES ITIER July 05, 2024 8:31 am SCREENING September 04, 2024 3:26p m Reason for Visit Admit Date Climacteric May 16, 2024 3:25pm Overweight (BMI 25.0-29.9) April 3:25pm Women's annual routine gynecological exa mination May 16, 2024 3:25pm Chief Complaint Admit Date MEASLES ITIER July 05, 2024 8:31 am SCREENING September 04, 2024 3:26p m 6 M FU October 16, 2024 3:34 pm Chief Complaint Admit Date 6 M FU October 16, 2024 3:34 pm SORE THROAT, CONGESTION, EARS CLOGGED, O ctober 2024 1:20pm Reason for Visit Admit Date Early satiety October 16, 2024 3:34 pm Flatulence/gas pain/belching October 16, 2024 3:34pm IBS (irritable bowel syndrome) September 3:34pm Constipation October 16, 2024 3:34 pm URI (upper respiratory infection) Octobe r 2024 1:20pm Additional Source Comments INFORMATION SOURCE (unrecogn ized section and content) DATE CREATED AUTHOR 01/04/2021 [facility] DATE CREATED AUTHOR AUTHOR'S ORGANIZ ATION 09/15/2021 [facility] DATE CREATED AUTHOR AUTHOR'S ORGANIZ ATION 06/28/2023 [facility] ([place]) DATE CREATED AUTHOR AUTHOR'S ORGANIZ ATION 02/03/2025 [facility] Goals (unrecognized section and content) Goals may [...] or prosecute any alcohol or drug abuse patient.[facility] the event this information is protected by the Federal Confidentiality of Alcohol and Drug Abuse Patient Records regulations: The Federal rules restrict any use of the information to criminally investigate or prosecute any alcohol or drug abuse patient.[facility] Reason for Visit (unrecogniz ed section and content) Reason Comments Appointment Cancelled Reason Comments Release Of Medical Records Care Teams (unrecognized sec tion and content) Residential Collections Relationship Specialty Start Date End Date Yoon Rae MD [address] [place] [address] PCP - General 04/24/09 Residential Collections Relationship Specialty Start Date End Date Yoon Rae MD [address] [place] [address] PCP - General 04/24/09 Serina Sandoval [address] [place] [id number] Referring SPLUNK ARCHITECT 05/27/21 Team Status: Active Member Role Status Dates YOON RAE Family Provider Active Team Status: Inactive Member Role Status Dates Dr. Serina Sandoval DO Attending Provider Active Team Status: Active Member Role Status Dates YOON RAE Family Provider Active YOON RAE Primary Care Provider Active Team Status: Inactive Member Role Status Dates Cris Shafer HEDDLE MACHINE OPERATOR, HEDDLE MACHINE OPERATOR-C Attending Provider Active Team Status: Inactive Member Role Status Dates RABIA TERRELL Primary Care Provider Active Cris Shafer HEDDLE MACHINE OPERATOR, HEDDLE MACHINE OPERATOR-C Attending Provider, Referrin g Provider Active Team Status: Active Member Role Status Dates RABIA TERRELL Primary Care Provider Active Cris Shafer HEDDLE MACHINE OPERATOR, HEDDLE MACHINE OPERATOR-C Attending Provider Active Team Status: Inactive Member Role Status Dates RABIA TERRELL Primary Care Provider Active Cris Shafer HEDDLE MACHINE OPERATOR, HEDDLE MACHINE OPERATOR-C Attending Provider Active Team Status: Inactive Member Role Status Dates RABIA TERRELL Primary Care Provider Active Dr. Martha Guzman , Attending Provider Active Team Status: Inactive Member Role Status Dates RABIA TERRELL Primary Care Provider Active Dr. Serina Sandoval , Attending Provider, Referrin g Provider Active Team [...] Status Dates YOON RAE Family Provider Active Judith Ramos HEDDLE MACHINE OPERATOR, HEDDLE MACHINE OPERATOR-C Primary Care Provider Active Team Status: Inactive Member Role Status Dates Judith Ramos HEDDLE MACHINE OPERATOR, HEDDLE MACHINE OPERATOR-C Attending Provider Active Team Status: Inactive Member Role Status Dates CHARMAINE NAVAS MD Attending Provider Active Team Status: Inactive Member Role Status Dates Judith Ramos HEDDLE MACHINE OPERATOR, HEDDLE MACHINE OPERATOR-C Primary Care Provider, Attendi ng Provider Active Team Status: Inactive Member Role Status Dates Judith Ramos HEDDLE MACHINE OPERATOR, HEDDLE MACHINE OPERATOR-C Attending Provider, Referring Provider Active RABIA TERRELL Primary Care Provider Active Team Status: Inactive Member Role Status Dates Dr. Adam Geiger DO Attending Provider Active Team Status: Inactive Member Role Status Dates COLLETTE PARKER MD Attending Provider Active Team Status: Active Member Role Status Dates YOON RAE Family Provider Active COLLETTE PARKER MD Primary Care Provider Active Team Status: Active Member Role Status Maeve PARKER MD Primary Care Provider Active S tart: February 29, 2024 [facility] Attending Provider Active Start: February 29, 2024 [...] 2024 End: July 15, 2024 Out of Town Doctor Attending Provider Active Sta rt: July [...] Active Member Role/Relationship Status Dates Out of [facility] Doctor Primary Care Provider Active Team Status: Inactive Member Role/Relationship Status Maeve PARKER MD Primary Care Provider Active S tart: June 24, 2024 End: June 24, 2024 COLLETTE PARKER MD Attending Provider Active Star t: June 24, 2024 End: June 24, 2024 COLLETTE PARKER MD Referring Provider Active Star t: June 24, 2024 End: June 24, 2024 Team Status: Inactive Member Role/Relationship Status Maeve PARKER MD Primary Care Provider Active S tart: July 05, 2024 End: July 05, 2024 RABIA TERRELL Attending Provider Active Start: A pri2024 End: July 05, 2024 Team Status: Inactive Member Role/Relationship Status Maeve PARKER MD Primary Care Provider Active S tart: July 15, 2024 End: July 15, 2024 Out [facility] Doctor Attending Provider Active Sta rt: July 15, 2024 End: July 15, 2024 Team Status: Inactive Member Role/Relationship Status Maeve PARKER MD Primary Care Provider [...] 2024 End: October 16, 2024 Out of [facility] Doctor Primary Care Provider Active Start: October 16, 2024 End: October 16, 2024 Team Status: Active Member Role/Relationship Status Dates Out of [facility] Doctor Primary care physician Active Team Status: Inactive Member Role/Relationship Status Dates Out of [facility] Doctor Primary care physician Active Start: September 26, 2024 Dr. Uyen Mcguire MD Attending physician Active Start: September 26, 2024 Team Status: Inactive Member Role/Relationship Status Dates COLLETTE PARKER MD Referring Provider Active Star t: October 16, 2024 End: October 16, 2024 Dr. Adam Geiger DO Attending physician Active Start: October 16, 2024 End: October 16, 2024 Out of [facility] Doctor Primary care physician Active Start: October 16, 2024 End: October 16, 2024 Team Status: Inactive Member Role/Relationship Status Dates Out of [facility] Doctor Primary care physician Active Start: December 30, 2024 End: December 30, 2024 SHANKAR NOLEN MD Attending physician Active Start: December 30, 2024 End: December 30, 2024 SHANKAR NOLEN MD Referring Provider Active S tart: December 30, 2024 End: December 30, 2024 Team Status: Inactive Member Role/Relationship Status Dates Out of [facility] Doctor Primary care physician Active Start: January 07, 2025 End: January 07, 2025 Out of [facility] Doctor Referring Provider Active Sta rt: January 07, 2025 End: January 07, 2025 Abbe Hansen HEDDLE MACHINE OPERATOR, HEDDLE MACHINE OPERATOR-C Attending physician Active Start: January 07, 2025 End: January 07, 2025 FOR RECORDS PERTAINING TO PATIENTS WHO ARE [...] BE BASED ON THE PRIMARY CLINICAL RECORDS. [facility] [employer] [facility]. provides no warranty or guarantee of the accuracy or completeness of information in this document.
[2025-02-23 15:37] LABS: Color, Urine Yellow (Yellow); Glucose, Dipstick Normal (Normal); Urine Bilirubin Dipstick Negative (Negative)
[2025-02-23 15:38] LABS: Ketone-Dipstick Negative (Negative); Nitrite-Dipstick Negative (Negative); Protein-Dipstick 30 mg/dl (Negative); Specific Gravity, Urine 1.025 (1.002-1.030)
[2025-02-23 15:39] LABS: Leukocyte Esterase-Dipstick 500 /ul (Negative); Occult Blood-Urine 25 /ul (Negative)
== END | disposition home or self-care (01) ==
LOC: LAB 15:17
DX: R30.0 Dysuria (principal); R35.0 Frequency of micturition
CPT/HCPCS: 81001; 87077; 87086; 87088; 87186

== ENCOUNTER → 2025-03-16 | Outpatient (CLI) | payer OTHER, SELFPAY ==
--- OUTSIDE RECORDS SUMMARY | 2025-03-16 07:11 | XMS RPT_ITS | CCD ---
Author Organization [facility] Care Team Providers Care Golf Range Attendant Name Role Phone Yoon Rae MD Primary Care Provider Serina Sandoval Unavailable Gopi STODDARD, RICHI Head Attending Provider Hollis VICE PRESIDENT [employer], VICE PRESIDENT [employer] Cris Veronica Attending Provider YOON RAE Primary Care Provider YOON RAE Referring Provider Friend, Dr. Medina Attending Provider [phone] FriendDr. Medina Other Provider Rachel VICE PRESIDENT [employer], VICE PRESIDENT [employer] Judith Attending Provider Rachel VICE PRESIDENT [employer], VICE PRESIDENT [employer] Judith Attending Provider Friend, Dr. Medina Attending Provider YOON RAE MD Attending Unavailable YOON RAE MD Primary Care Unavailable COLLETTE PARKER MD Primary Care Provider Health, Employee Attending Provider Dr. Philippe Gonzalez MD Attending Provider Friend Dr. Adam HENDRICKS Attending Provider COLLETTE PARKER MD Referring Provider Marifer NAIR-CRadha Attending Provider COLLETTE PARKER MD Attending Provider COLLETTE PARKER MD Primary Care Provider [phone] YOON RAE Attending Provider [phone] KEITH LINARES, COLLETTE Primary Care Provider KEITH LINARES, COLLETTE Referring Provider [facility] Doctor, Out of Attending Provider Unavailab franklyn Caicedo VICE PRESIDENT [employer]-CRadha Referring Provider [phone] Lisa LINARES, Dr. Paez Attending Provider Lisa LINARES, Dr. Paez Referring Provider KEITH LINARES, COLLETTE Primary Care Provider [phone] KEITH LINARES, COLLETTE Attending Provider KEITH LINARES, COLLETTE Referring Provider Marifer NAIR-CRadha Attending Provider Fely HENDRICKS, Dr. Medina Attending Provider [facility] Doctor, Out of Primary Care Provider Luly silveira [facility] Doctor, Out of Primary Care Physician Bashir Mcguire MD, Dr. Qiu Attending Physician KEITH LINARES, COLLETTE Referring Provider Dr. Adam Geiger DO Attending Physician SHANKAR NOLEN MD Attending Physician SHANKAR NOLEN MD Referring Provider [phone] [facility] Doctor, Out of Referring Provider Unavailab [...] NOLEN Attending Unavailable SHANKAR NOLEN Referring Unavailable [facility] Doctor, Out of Primary Care Unavailable KEITH, RALLIS Primary Care Unavailable Philippe Gonzalez Attending Unavailable KEITH, RALLIS Primary Care Unavailable KEITH, RALLIS Attending Unavailable KEITH, RALLIS Referring Unavailable KEITH, RALLIS Primary Care Unavailable KEITH, RALLIS Attending Unavailable KEITH, RALLIS Referring Unavailable Allergies Allergy Classification Reported Allergen(s) Allergy Type Date of Onset Reaction(s) Facility (20 sources) Morphine Drug Allergy 05-20-2008 [facility] (1 source) Morphine Drug Allergy 01-07-2025 [facility] Repository Medications Current Medications Medication Drug Class(es) Dates Sig (Normalized) Sig (Original) [id number] 200 actuat albuterol 0.09 mg/actuat metered dose [...] Start: 04-18-2021 take 1 capsule by mo [facility] every week ergocalciferol 50,000 unit capsule [...] Start: 01-07-2025 take 1 capsule by mo [facility] once daily Progesterone Micronized 100 mg capsule [...] 04/24/2009 Active Comment on above: biweekly amylase [id number] unt / lipase 19229 unt / protease [id number] unt delayed release oral capsule (16 sources) Start: 06-30-2023 End: 09-16-2023 Pnsaxv-Dyblipiy-Et ylase (Creon) 36,000-114,000- 180,000 unit capsule,delayed release(DR/EC) Discontinued 3 NMA PO before meals 900 June 30, 2023 12:31pm September 16, 2023 8:26am take 3 capsules by mouth with meals and 1 capsule with snack, max 10 capsules per day. Start: 06-28-2023 End: 06-30-2023 take [id number] capsules by mouth three times daily at mealtime Fpbffw-Nudspahm-Jofbwrp (Creon) 36,000-114,000- 180,000 unit capsule,delayed release(DR/EC) Discontinued [...] Comment on above: Take 1 tablet by [facility] once daily. nortriptyline 10 mg oral capsule [...] Axilla - Lefton 02-01-2025 Axilla - Left [facility] [address] [place] [address] Axilla - Left MR#: [id number] Acct: [id number] Name: PRAFUL KAHN Rep #: [id number] : 1975 F 49 From: Ernesto singer MD PCP: YOON RAE Status: REG CLI Study: Axilla - Left Date of Exam: 02/01/25 Exam# [id number] Ordering Dr: YOON RAE EXAM: Left axillary [...] benign-appearing right axillary lymph nodes. 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 Normal [facility] Anti-dsDNA Abon 01-01-2025 ANTI-DNA (DS)AB 3 IU/mL Normal 0-9 [facility] Comment on above: Result Comment: Nega tive <5 Equivocal 5 - 9 Positive >9 Performed at: [facility] [address] [id number] Manual Lathe Operator: Ej Landers PhD, Phone: [phone] Performed By: #### L 100.0100, L3200.1200 #### [facility] [address] [place], [place], [address] Antiextractable Nug Agon V/STOL LANDING SIGNAL OFFICER Ab <0.2 Normal 0.0-0.9 [facility] Comment on above: Result Comment: AMENDED REPORT 01/01/25 150 V/STOL LANDING SIGNAL OFFICER Ab previously reported as: Test not performed Performed By: #### L 3410.1110, L400.2010, L3100.3450, L101.9900, L100.0100, L501.1105, L3100.5500, L500.3400, L3100.5800, L501.6710, L3100.5700 ####[facility] [address] [place], [place], [address] LE Ab <0.2 Normal 0.0-0.9 [facility] Comment on above: Result Comment: AMENDED REPORT 01/01/25 150 LE Ab previously reported as: Test not performed Performed By: #### L 3410.1110, L400.2010, L3100.3450, L101.9900, L100.0100, L501.1105, L3100.5500, L500.3400, L3100.5800, L501.6710, L3100.5700 ####[facility] [address] [place], [address] Complement C3on 01-01-2025 COMP C3 131 mg/dL Normal 82-167 [facility] Comment on above: Result Comment: Perf ormed at: - [facility] [address] [id number] Manual Lathe Operator: Ej Landers PhD, Phone: [phone] Performed By: #### L 100.0100, L3200.1200 #### [facility] [address] [place], [address] Complement C4on 01-01-2025 COMPLEMENT, C4 22 mg/dL Normal 12-38 [facility] Comment on above: Performed By: #### L 100.0100, L3200.1200 #### [facility] [address] [place], [address] Protein Electroph, Son 01-01 Albumin [Mass/Vol] 4.2 g/dL Normal 2.9-4.4 [facility] Comment on above: Performed By: #### L 100.0100, L3200.1200 #### [facility] [address] [place], [address] Albumin/Globulin [Mass ratio] 1.4 {ratio} Normal 0.7-1.7 [facility] Comment on above: Performed By: #### L 100.0100, L3200.1200 #### [facility] [address] [place], [address] ALPHA-1 GLOBUL 0.2 g/dL Normal 0.0-0.4 [facility] Comment on above: Performed By: #### L 100.0100, L3200.1200 #### [facility] [address] [place], [address] ALPHA-2 GLOBUL 0.7 g/dL Normal 0.4-1.0 [facility] Comment on above: Performed By: #### L 100.0100, L3200.1200 #### [facility] [address] [place], [address] BETA GLOBULIN 1.1 g/dL Normal 0.7-1.3 [facility] Comment on above: Performed By: #### L 100.0100, L3200.1200 #### [facility] [address] [place], [address] GAMMA GLOBULIN 1.1 g/dL Normal 0.4-1.8 [facility] Comment on above: Performed By: #### L 100.0100, L3200.1200 #### [facility] [address] [place], [address] Globulin (S) [Mass/Vol] 3.0 g/dL Normal 2.2-3.9 [facility] Comment on above: Performed By: #### L 100.0100, L3200.1200 #### [facility] [address] [place], [address] INTERPRETATION Comment Normal . [facility] Comment on above: Result Comment: Prot ein electrophoresis scan will follow via computer, mail, or floor tiling professional delivery. Performed By: #### L 100.0100, L3200.1200 #### [facility] [address] [place], [address] M-SPIKE Not Observed Normal Not Observed [facility] Comment on above: Performed By: #### L 100.0100, L3200.1200 #### [facility] [address] [place], [address] NOTE: Comment Normal . [facility] Comment on above: Result Comment: The SPE pattern appears unremarkable. Evidence of monoclonal protein is not apparent. Performed By: #### L 100.0100, L3200.1200 #### [facility] [address] [place], [address] Protein [Mass/Vol] 7.2 g/dL Normal 6.0-8.5 [facility] Comment on above: Performed By: #### L 100.0100, L3200.1200 #### [facility] [address] [place], [address] Absolute lymphocyte countOrd ered By: SHANKAR NOLEN on 12-30-2024 Lymphocytes Auto (Unsp spec) [#/Vol] 1.02 10*3/uL 0.83-4.51 [facility] Absolute neutrophil countOrd ered By: SHANKAR NOLEN on 12-30-2024 Neutrophils (Bld) [#/Vol] 4.3 10*3/uL 2.0-7.7 [facility] Albumin Elph [Mass/Vol]Order ed By: SHANKAR NOLEN on 12-30-2024 Albumin [Mass/Vol] 4.2 g/dL 2.9-4.4 [facility] Automated lymphocyte count a s percentage of total leukocytesOrdered By: SHANKAR NOLEN on 12-30-2024 Lymphocytes/100 WBC Auto (Unsp spec) 15.8 % Low 19-41 [facility] Basophil percentageOrdered B y: SHANKAR NOLEN on 12-30-2024 Basophils/100 WBC (Bld) 0.9 % 0-1 [facility] Bilirubin Test strip Ql (U)O rdered By: SHANKAR NOLEN on 12-30-2024 Bilirubin Ql (U) Negative Negative [facility] Bilirubin directOrdered By: SHANKAR NOLEN on 12-30-2024 Bilirubin.direct [Mass/Vol] 0.18 mg/dL 0.00-0.30 [facility] Bilirubin, totalOrdered By: SHANKAR NOLEN on 12-30-2024 Bilirubin [Mass/Vol] 0.41 mg/dL 0.00-1.30 [facility] CBC W/Diff, Automatedon Absolute Lymph 1.02 X10 3/uL Normal 0.83-4.51 [facility] Comment on above: Performed By: #### L 3410.1110, L400.2011, L3100.3450, L101.9900, L100.0100, L501.1105, L3100.5500, L500.3400, L3100.5800, L501.6710, L3100.5700 ####[facility] [address] [place], [address] Absolute Neut 4.3 X10 3/uL Normal 2.0-7.7 [facility] Comment on above: Performed By: #### L 3410.1110, L400.2010, L3100.3450, L101.9900, L100.0100, L501.1105, L3100.5500, L500.3400, L3100.5800, L501.6710, L3100.5700 ####[facility] [address] [place], [place], [address] Basophils/100 WBC (Bld) 0.9 % Normal 0-1 [facility] Comment on above: Performed By: #### L 3410.1110, L400.2010, L3100.3450, L101.9900, L100.0100, L501.1105, L3100.5500, L500.3400, L3100.5800, L501.6710, L3100.5700 ####[facility] [address] [place], [place], [address] Eosinophils/100 WBC (Bld) 2.5 % Normal 0-5 [facility] Comment on above: Performed By: #### L 3410.1110, L400.2010, L3100.3450, L101.9900, L100.0100, L501.1105, L3100.5500, L500.3400, L3100.5800, L501.6710, L3100.5700 ####[facility] [address] [place], [place], [address] Erythrocyte distribution width (RBC) [Ratio] 12.0 % Normal 11.6-14.6 [facility] Comment on above: Performed By: #### L 3410.1110, L400.2010, L3100.3450, L101.9900, L100.0100, L501.1105, L3100.5500, L500.3400, L3100.5800, L501.6710, L3100.5700 ####[facility] [address] [place], [address] Hematocrit (Bld) [Volume fraction] 40.5 % Normal 37-47 [facility] Comment on above: Performed By: #### L 3410.1110, L400.2010, L3100.3450, L101.9900, L100.0100, L501.1105, L3100.5500, L500.3400, L3100.5800, L501.6710, L3100.5700 ####[facility] [address] [place], [address] Hemoglobin (Bld) [Mass/Vol] 13.5 g/dL Normal 12.0-15.0 [facility] Comment on above: Performed By: #### L 3410.1110, L4.2010, L3100.3450, L101.9900, L100.0100, L501.1105, L3100.5500, L500.3400, L3100.5800, L501.6710, L3100.5700 ####[facility] [address] [place], [address] IG% 0.500 Normal 0.0-0.9 [facility] Comment on above: Result Comment: IG% - Immature Granulocytes (promyelocytes, myelocytes and metamyelocytes) > 1% indicates that a LEFT SHIFT is Present. Performed By: #### L 3410.1110, L400.2010, L3100.3450, L101.9900, L100.0100, L501.1105, L3100.5500, L500.3400, L3100.5800, L501.6710, L3100.5700 ####[facility] [address] [place], [address] Lymphocytes/100 WBC (Bld) 15.8 % Low 19-41 [facility] Comment on above: Performed By: #### L 3410.1110, L400.2011, L3100.3450, L101.9900, L100.0100, L501.1105, L3100.5500, L500.3400, L3100.5800, L501.6710, L3100.5700 ####[facility] [address] [place], [address] MCH (RBC) [Entitic mass] 31.1 pg Normal 27.0-32.0 [facility] Comment on above: Performed By: #### L 3410.1110, L400.2010, L3100.3450, L101.9900, L100.0100, L501.1105, L3100.5500, L500.3400, L3100.5800, L501.6710, L3100.5700 ####[facility] [address] [place], [address] MCHC (RBC) [Mass/Vol] 33.3 g/dL Normal 32-36 [facility] Comment on above: Performed By: #### L 3410.1110, L400.2010, L3100.3450, L101.9900, L100.0100, L501.1105, L3100.5500, L500.3400, L3100.5800, L501.6710, L3100.5700 ####[facility] [address] [place], [address] MCV (RBC) [Entitic vol] 93.3 fL Normal 81-99 [facility] Comment on above: Performed By: #### L 3410.1110, L400.2010, L3100.3450, L101.9900, L100.0100, L501.1105, L3100.5500, L500.3400, L3100.5800, L501.6710, L3100.5700 ####[facility] [address] [place], [address] Monocytes/100 WBC (Bld) 13.9 % High 0-10 [facility] Comment on above: Performed By: #### L 3410.1110, L400.2010, L3100.3450, L101.9900, L100.0100, L501.1105, L3100.5500, L500.3400, L3100.5800, L501.6710, L3100.5700 ####[facility] [address] [place], [place], [phone]) Neutrophils/100 WBC (Bld) 66.4 % Normal 47-70 [facility] Comment on above: Performed By: #### L 3410.1110, L4.2010, L3100.3450, L101.9900, L100.0100, L501.1105, L3100.5500, L500.3400, L3100.5800, L501.6710, L3100.5700 ####[facility] [address] [place], [place], [address] Nucleated RBC (Bld) [#/Vol] 0 10*3/uL Normal 0-5 [facility] Comment on above: Performed By: #### L 3410.1110, L4.2010, L3100.3450, L101.9900, L100.0100, L501.1105, L3100.5500, L500.3400, L3100.5800, L501.6710, L3100.5700 ####[facility] [address] [place], [address] Platelet mean volume (Bld) [Entitic vol] 10.6 fL Normal 6.2-12.0 [facility] Comment on above: Performed By: #### L 3410.1110, L4.2010, L3100.3450, L101.9900, L100.0100, L501.1105, L3100.5500, L500.3400, L3100.5800, L501.6710, L3100.5700 ####[facility] [address] [place], [address] Platelets (Bld) [#/Vol] 382 10*3/uL Normal 150-450 [facility] Comment on above: Performed By: #### L 3410.1110, L400.2011, L3100.3450, L101.9900, L100.0100, L501.1105, L3100.5500, L500.3400, L3100.5800, L501.6710, L3100.5700 ####[facility] [address] [place], [address] RBC (Bld) [#/Vol] 4.34 10*6/uL Normal 4.2-5.4 [facility] Comment on above: Performed By: #### L 3410.1110, L400.2010, L3100.3450, L101.9900, L100.0100, L501.1105, L3100.5500, L500.3400, L3100.5800, L501.6710, L3100.5700 ####[facility] [address] [place], [address] RDW SD 41.4 fl Normal 35.1-43.9 [facility] Comment on above: Performed By: #### L 3410.1110, L400.2010, L3100.3450, L101.9900, L100.0100, L501.1105, L3100.5500, L500.3400, L3100.5800, L501.6710, L3100.5700 ####[facility] [address] [place], [address] WBC (Bld) [#/Vol] 6.5 10*3/uL Normal 4.4-11.0 [facility] Comment on above: Performed By: #### L 3410.1110, L400.2010, L3100.3450, L101.9900, L100.0100, L501.1105, L3100.5500, L500.3400, L3100.5800, L501.6710, L3100.5700 ####[facility] [address] [place], [address] CRPon 12-30-2024 C-REACTIVE PROT < 3.00 Normal 0.0-3.0 [facility] Comment on above: Performed By: #### L 100.0100, L3200.1200 #### [facility] [address] [place], [place], [address] Eosinophil percentageOrdered By: SHANKAR NOELN on 12-30-2024 Eosinophils/100 WBC (Bld) 2.5 % 0-5 [facility] Erythrocyte Sed Rateon 12-30 SED RATE 1 mm/hr Normal 0-30 [facility] Comment on above: Performed By: #### L 3410.1110, L400.2011, L3100.3450, L101.9900, L100.0100, L501.1105, L3100.5500, L500.3400, L3100.5800, L501.6710, L3100.5700 ####[facility] [address] [place], [address] Erythrocyte distribution wid th ratioOrdered By: SHANKAR NOLEN on 12-30-2024 Erythrocyte distribution width (RBC) [Ratio] 12.0 % 11.6-14.6 [facility] Erythrocyte distribution wid th standard deviationOrdered By: SHANKAR NOLNE on 12-30-2024 Erythrocyte distribution width (RBC) [Ratio] 41.4 fl 35.1-43.9 [facility] Erythrocyte sedimentation ra teOrdered By: SHANKAR NOLEN on 12-30-2024 ESR (Bld) [Velocity] 1 mm/h 0-30 [facility] Glomerular filtration rate ( GFR) estimation/1.73 sq m using serum, plasma, or whole bOrdered By: SHANKAR NOLEN on 12-30-2024 GFR/1.73 sq M.predicted among non-blacks MDRD (S/P/Bld) [Vol rate/Area] 87 mL/min/{1.73_m2} >60 [facility] Comment on above: mL/min/1.73m2 CKD-EP I Creatinine Equation (2020) Hematocrit Auto (Bld) [Volum e fraction]Ordered By: SHANKAR NOLEN on 12-30-2024 Hematocrit (Bld) [Volume fraction] 40.5 % 37-47 [facility] Hemoglobin measurementOrdere d By: SHANKAR NOLEN on 12-30-2024 Hemoglobin (Bld) [Mass/Vol] 13.5 g/dL 12.0-15.0 [facility] Immature granulocytes/100 WB C Auto (Bld)Ordered By: SHANKAR NOLEN on 12-30-2024 Immature granulocytes/100 WBC (Bld) 0.500 % 0.0-0.9 [facility] Comment on above: IG% - Immature Granu locytes (promyelocytes, myelocytes and metamyelocytes) > 1% indicates that a LEFT SHIFT is Present. Ketones Test strip Ql (U)Ord ered By: SHANKAR NOLEN on 12-30-2024 Ketones Ql (U) Negative Negative [facility] - Chemistry and C hemistry - challengeOrdered By: SHANKAR NOLEN on 12-30-2024 AST [Catalytic activity/Vol] 20 U/L <32 [facility] Liver Profileon 12-30-2024 Albumin [Mass/Vol] 4.6 g/dL Normal 3.5-5.0 [facility] Comment on above: Performed By: #### L 3410.1110, L4.2010, L3100.3450, L101.9900, L100.0100, L501.1105, L3100.5500, L500.3400, L3100.5800, L501.6710, L3100.5700 ####[facility] [address] [place], [address] ALK PHOS 72 U/L Normal 35-104 [facility] Comment on above: Performed By: #### L 3410.1110, L4.2010, L3100.3450, L101.9900, L100.0100, L501.1105, L3100.5500, L500.3400, L3100.5800, L501.6710, L3100.5700 ####[facility] [address] [facility] [address] [place], [place], [phone] ALT [Catalytic activity/Vol] 19 U/L Normal <=34 [facility] Comment on above: Performed By: #### L 3410.1110, L4.2010, L3100.3450, L101.9900, L100.0100, L501.1105, L3100.5500, L500.3400, L3100.5800, L501.6710, L3100.5700 ####[facility] [address] [place], [place], [address] AST [Catalytic activity/Vol] 20 U/L Normal <=31 [facility] Comment on above: Performed By: #### L 3410.1110, L4, L3100.3450, L101.9900, L100.0100, L501.1105, L3100.5500, L500.3400, L3100.5800, L501.6710, L3100.5700 ####[facility] [address] [facility] [place], [address] Bilirubin [Mass/Vol] 0.41 mg/dL Normal 0.00-1.30 [facility] Comment on above: Performed By: #### L 3410.1110, L4.2010, L3100.3450, L101.9900, L100.0100, L501.1105, L3100.5500, L500.3400, L3100.5800, L501.6710, L3100.5700 ####[facility] [address] [place], [address] Bilirubin.direct [Mass/Vol] 0.18 mg/dL Normal 0.00-0.30 [facility] Comment on above: Performed By: #### L 3410.1110, L4, L3100.3450, L101.9900, L100.0100, L501.1105, L3100.5500, L500.3400, L3100.5800, L501.6710, L3100.5700 ####[facility] [address] [place], [address] Globulin (S) [Mass/Vol] 2.6 g/dL Normal 2.2-4.2 [facility] Comment on above: Performed By: #### L 3410.1110, L400.2011, L3100.3450, L101.9900, L100.0100, L501.1105, L3100.5500, L500.3400, L3100.5800, L501.6710, L3100.5700 ####[facility] [address] [place], [address] T PROT 7.2 g/dL Normal 5.9-8.4 [facility] Comment on above: Performed By: #### L 3410.1110, L400.2010, L3100.3450, L101.9900, L100.0100, L501.1105, L3100.5500, L500.3400, L3100.5800, L501.6710, L3100.5700 ####[facility] [address] [place], [place], [address] MCV (mean corpuscular volume ) determinationOrdered By: SHANKAR NOLEN on 12-30-2024 MCV (RBC) [Entitic vol] 93.3 fL 81-99 [facility] Mean corpuscular hemoglobin (MCH) determinationOrdered By: SHANKAR NOLEN on 12-30-2024 MCH (RBC) [Entitic mass] 31.1 pg 27.0-32.0 [facility] Mean corpuscular hemoglobin concentration (MCHC) determinationOrdered By: SHANKAR NOLEN on 12-30-2024 MCHC (RBC) [Mass/Vol] 33.3 g/dL 32-36 [facility] Mean platelet volume determi nationOrdered By: SHANKAR NOLEN on 12-30-2024 Platelet mean volume (Bld) [Entitic vol] 10.6 fL 6.2-12.0 [facility] Monocyte percentageOrdered B y: SHANKAR NOLEN on 12-30-2024 Monocytes/100 WBC (Bld) 13.9 % High 0-10 [facility] Neutrophil percentageOrdered By: SHANKAR NOLEN on 12-30-2024 Neutrophils/100 WBC (Bld) 66.4 % 47-70 [facility] Nitrite Test strip Ql (U)Ord ered By: SHANKAR NOLEN on 12-30-2024 Nitrite Ql (U) Negative Negative [facility] No Panel InformationOrdered By: SHANKAR NOLEN on 12-30-2024 Addendum Document Comment . [facility] Comment on above: The SPE pattern appe ars unremarkable. Evidence ofmonoclonal protein is not apparent. Nucleated red blood cell per centageOrdered By: SHANKAR NOLEN on 12-30-2024 Nucleated RBC/100 WBC (Bld) [Ratio] 0 % 0-5 [facility] Platelet countOrdered By: ME GRANT NOLEN on 12-30-2024 Platelets (Bld) [#/Vol] 382 10*3/uL 150-450 [facility] Protein Fractions Elph [Inte rp]Ordered By: SHANKAR NOLEN on 12-30-2024 Protein Fractions [Interp] Comment . [facility] Comment on above: Protein electrophore sis scan will follow via computer,mail, or floor tiling professional delivery. Protein Test strip Ql (U)Ord ered By: SHANKAR NOLEN on 12-30-2024 Protein Ql (U) 15 mg/dl High Negative [facility] RBC Auto (Bld) [#/Vol]Ordere d By: SHANKAR NOLEN on 12-30-2024 RBC (Bld) [#/Vol] 4.34 10*6/uL 4.2-5.4 [facility] Serum Creatinine AND GFRon 1 Creatinine [Mass/Vol] 0.81 mg/dL Normal 0.70-1.20 [facility] Comment on above: Performed By: #### L 100.0100, L3200.1200 #### [facility] [id number] [place], [place], [address] GFR/1.73 sq M.predicted among non-blacks MDRD (S/P/Bld) [Vol rate/Area] 87 mL/min/{1.73_m2} Normal >60 [facility] Comment on above: Result Comment: mL/m in/1.73m2 CKD-EPI Creatinine Equation (2020) Performed By: #### L 100.0100, L3200.1200 #### [facility] [address] [place], [address] Serum DNA double strand anti body assay (units/volume)Ordered By: SHANKAR NOLEN on 12-30-2024 DNA double strand Ab Qn (S) 3 [IU]/mL 0-9 [facility] Comment on above: Negative <5 Equivoca l 5 - 9 Positive >9Performed at: [facility] Director: Ej Landers PhD, Phone: [phone] Serum albumin to globulin ra salazar by protein electrophoresisOrdered By: SHANKAR NOLEN on 12-30-2024 Albumin/Globulin Elph [Mass ratio] 1.4 0.7-1.7 [facility] Serum creatinine measurement (mass/volume)Ordered By: SHANKAR NOLEN on 12-30-2024 Creatinine [Mass/Vol] 0.81 mg/dL 0.70-1.20 [facility] Serum globulin measurementOr dered By: SHANKAR NOLEN on 12-30-2024 Globulin (S) [Mass/Vol] 2.6 g/dL 2.2-4.2 [facility] Serum globulin measurement ( mass/volume)Ordered By: SHANKAR NOLEN on 12-30-2024 Globulin (S) [Mass/Vol] 3.0 g/dL 2.2-3.9 [facility] Serum or plasma C reactive p rotein measurement (mass/volume)Ordered By: SHANKAR NOLEN on 12-30-2024 CRP [Mass/Vol] mg/L 0.0-3.0 [facility] Serum or plasma alanine hernandez otransferase (ALT) measurementOrdered By: SHANKAR NOLEN on 12-30-2024 ALT [Catalytic activity/Vol] 19 U/L <35 [facility] Serum or plasma albumin gem urement (mass/volume)Ordered By: SHANKAR NOLEN on 12-30-2024 Albumin [Mass/Vol] 4.6 g/dL 3.5-5.0 [facility] Serum or plasma alkaline chris sphatase measurementOrdered By: SHANKAR NOLEN on 12-30-2024 ALP [Catalytic activity/Vol] 72 U/L 35-104 [facility] Serum or plasma beta globuli n measurement by electrophoresis (mass/volume)Ordered By: SHANKAR NOLEN on 12-30-2024 Beta globulin Elph [Mass/Vol] 1.1 g/dL 0.7-1.3 [facility] Serum or plasma complement C 4 measurement (mass/volume)Ordered By: SHANKAR NOLEN on 12-30-2024 Complement C4 [Mass/Vol] 22 mg/dL 12-38 [facility] Serum or plasma protein mono clonal measurement by electrophoresis (mass/volume)Ordered By: SHANKAR NOLEN on 12-30-2024 Protein.monoclonal Elph [Mass/Vol] Not Observed g/dL Not Observed [facility] Total proteinOrdered By: JENNIFER NOLEN on 12-30-2024 Protein [Mass/Vol] 7.2 g/dL 6.0-8.5 [facility] Urinalysis, Routine (Dipstic k)on 12-30-2024 BILIRUBIN URINE Negative Normal Negative [facility] Comment on above: Order Comment: CLEAN CATCH Performed By: #### L 100.0100, L3200.1200 #### [facility] [address] [place], [place], [id number] Clarity (U) Clear Normal Clear [facility] Comment on above: Order Comment: CLEAN CATCH Performed By: #### L 100.0100, L3200.1200 #### [facility] [address] [place], [address] Color (U) Yellow Normal Yellow [facility] Comment on above: Order Comment: CLEAN CATCH Performed By: #### L 100.0100, L3200.1200 #### [facility] [address] [place], [address] GLUCOSE, UR Normal Normal Normal [facility] Comment on above: Order Comment: CLEAN CATCH Performed By: #### L 100.0100, L3200.1200 #### [facility] [address] [place], [address] KETONE UR Negative Normal Negative [facility] Comment on above: Order Comment: CLEAN CATCH Performed By: #### L 100.0100, L3200.1200 #### [facility] [address] [place], [address] LEUK ESTERASE 25 /ul Abnormal Negative [facility] Comment on above: Order Comment: CLEAN CATCH Performed By: #### L 100.0100, L3200.1200 #### [facility] [address] [place], [address] Nitrite Ql (U) Negative Normal Negative [facility] Comment on above: Order Comment: CLEAN CATCH Performed By: #### L 100.0100, L3200.1200 #### [facility] [address] [place], [address] OCCULT BLOOD-UR Negative Normal Negative [facility] Comment on above: Order Comment: CLEAN CATCH Performed By: #### L 100.0100, L3200.1200 #### [facility] [address] [place], [address] pH UR 6.0 Normal 5.0 - 8.0 [facility] Comment on above: Order Comment: CLEAN CATCH Performed By: #### L 100.0100, L3200.1200 #### [facility] [address] [place], [address] PROT DIPSTX 15 mg/dl Abnormal Negative [facility] Comment on above: Order Comment: CLEAN CATCH Performed By: #### L 100.0100, L3200.1200 #### [facility] [address] [place], [address] SP.GR. DIPSTX 1.020 Normal 1.002-1.03 0 [facility] Comment on above: Order Comment: CLEAN CATCH Performed By: #### L 100.0100, L3200.1200 #### [facility] [address] [place], [address] UROBILI Normal Normal Normal [facility] Comment on above: Order Comment: CLEAN CATCH Performed By: #### L 100.0100, L3200.1200 #### [facility] [address] [place], [address] Urine clarityOrdered By: JENNIFER NOLEN on 12-30-2024 Clarity (U) Clear Clear [facility] Urine color determinationOrd ered By: SHANKAR NOLEN on 12-30-2024 Color (U) Yellow Yellow [facility] Urine glucose detectionOrder ed By: SHANKAR NOLEN on 12-30-2024 Glucose Ql (U) Normal mg/dl Normal [facility] Urine leukocyte esterase det ection by dipstickOrdered By: SHANKAR NOLEN on 12-30-2024 Leukocyte esterase Test strip Ql (U) 25 /ul High Negative [facility] Urine pHOrdered By: SHANKAR PENN on 12-30-2024 pH (U) 6.0 [pH] 5.0 - 8.0 [facility] Urine specific gravity measu rementOrdered By: SHANKAR NOLEN on 12-30-2024 Specific gravity (U) [Rel density] 1.020 1.002-1.03 0 [facility] Urine urobilinogen measureme ntOrdered By: SHANKAR NOLEN on 12-30-2024 Urobilinogen Ql (U) Normal mg/dl Normal [facility] White blood cell (WBC) count Ordered By: SHANKAR NOLEN on 12-30-2024 WBC (Bld) [#/Vol] 6.5 10*3/uL 4.4-11.0 [facility] ton 10-16-2024 Gastroenterology Visit Report [facility] [address] [place] [address] OFFICE VISIT Date of Service: 10/16/24 MR#: [id number] Acct: [id number] Name: PRAFUL KAHN Rep #: [id number] : 1975 Provider: Adam Geiger DO Age/Sex: 49/F Location: [facility] [place] Status: Signed Intake Vital Signs 05/16/24 [...] 1 current occupational status: employed 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 Normal [facility] Immunoglobulins G/A/Mon 08-27 IMMUNOGLOB A QN 186 mg/dL Normal 87-352 [facility] Comment on above: Order Comment: N Performed By: #### L 3200.1200, L100.0100 ####[facility] [address] [place], [address] IMMUNOGLOB G QN 1204 mg/dL Normal 586-1602 [facility] Comment on above: Order Comment: N Performed By: #### L 3200.1200, L100.0100 ####[facility] [address] [place], [address] IMMUNOGLOB M QN 70 mg/dL Normal 26-217 [facility] Comment on above: Order Comment: N Result Comment: Perf ormed at: [facility] [id number] Manual Lathe Operator: Ej Landers PhD, Phone: [phone] Performed By: #### L 3200.1200, L100.0100 ####[facility] [address] [place], [address] Absolute lymphocyte countOrd ered By: Philippe Gonzalez on 09-07-2024 Lymphocytes Auto (Unsp spec) [#/Vol] 1.30 10*3/uL 0.83-4.51 [facility] Absolute neutrophil countOrd ered By: Philippe Gonzalez on 09-07-2024 Neutrophils (Bld) [#/Vol] 3.1 10*3/uL 2.0-7.7 [facility] Automated lymphocyte count a s percentage of total leukocytesOrdered By: Philippe Gonzalez on 09-07-2024 Lymphocytes/100 WBC Auto (Unsp spec) 24.1 % 19-41 [facility] Basophil percentageOrdered B y: Philippe Gonzalez on 09-07-2024 Basophils/100 WBC (Bld) 1.1 % High 0-1 [facility] CBC W/Diff, Automatedon 08-27 Absolute Lymph 1.30 X10 3/uL Normal 0.83-4.51 [facility] Comment on above: Performed By: #### L 3200.1200, L100.0100 ####[facility] [address] [place], [address] Absolute Neut 3.1 X10 3/uL Normal 2.0-7.7 [facility] Comment on above: Performed By: #### L 3200.1200, L100.0100 ####[facility] [address] [place], [address] Basophils/100 WBC (Bld) 1.1 % High 0-1 [facility] Comment on above: Performed By: #### L 3200.1200, L100.0100 ####[facility] [address] [place], [address] Eosinophils/100 WBC (Bld) 1.5 % Normal 0-5 [facility] Comment on above: Performed By: #### L 3200.1200, L100.0100 ####[facility] [address] [place], [address] Erythrocyte distribution width (RBC) [Ratio] 12.0 % Normal 11.6-14.6 [facility] Comment on above: Performed By: #### L 3200.1200, L100.0100 ####[facility] [address] [place], [address] Hematocrit (Bld) [Volume fraction] 41.4 % Normal 37-47 [facility] Comment on above: Performed By: #### L 3200.1200, L100.0100 ####[facility] [address] [place], [address] Hemoglobin (Bld) [Mass/Vol] 14.0 g/dL Normal 12.0-15.0 [facility] Comment on above: Performed By: #### L 3200.1200, L100.0100 ####[facility] [address] [place], [address] IG% 0.400 Normal 0.0-0.9 [facility] Comment on above: Result Comment: IG% - Immature Granulocytes (promyelocytes, myelocytes and metamyelocytes) > 1% indicates that a LEFT SHIFT is Present. Performed By: #### L 3200.1200, L100.0100 ####[facility] [address] [place], [address] Lymphocytes/100 WBC (Bld) 24.1 % Normal 19-41 [facility] Comment on above: Performed By: #### L 3200.1200, L100.0100 ####[facility] [address] [place], [address] MCH (RBC) [Entitic mass] 31.0 pg Normal 27.0-32.0 [facility] Comment on above: Performed By: #### L 3200.1200, L100.0100 ####[facility] [address] [place], [address] MCHC (RBC) [Mass/Vol] 33.8 g/dL Normal 32-36 [facility] Comment on above: Performed By: #### L 3200.1200, L100.0100 ####[facility] [address] [place], [address] MCV (RBC) [Entitic vol] 91.6 fL Normal 81-99 [facility] Comment on above: Performed By: #### L 3200.1200, L100.0100 ####[facility] [address] [place], [address] Monocytes/100 WBC (Bld) 14.8 % High 0-10 [facility] Comment on above: Performed By: #### L 3200.1200, L100.0100 ####[facility] [address] [place], [address] Neutrophils/100 WBC (Bld) 58.1 % Normal 47-70 [facility] Comment on above: Performed By: #### L 3200.1200, L100.0100 ####[facility] [address] [place], [address] Nucleated RBC (Bld) [#/Vol] 0 10*3/uL Normal 0-5 [facility] Comment on above: Performed By: #### L 3200.1200, L100.0100 ####[facility] [address] [place], [address] Platelet mean volume (Bld) [Entitic vol] 9.9 fL Normal 6.2-12.0 [facility] Comment on above: Performed By: #### L 3200.1200, L100.0100 ####[facility] [address] [place], [address] Platelets (Bld) [#/Vol] 369 10*3/uL Normal 150-450 [facility] Comment on above: Performed By: #### L 3200.1200, L100.0100 ####[facility] [address] [place], [address] RBC (Bld) [#/Vol] 4.52 10*6/uL Normal 4.2-5.4 [facility] Comment on above: Performed By: #### L 3200.1200, L100.0100 ####[facility] [address] [place], [address] RDW SD 40.1 fl Normal 35.1-43.9 [facility] Comment on above: Performed By: #### L 3200.1200, L100.0100 ####[facility] [address] [place], [address] WBC (Bld) [#/Vol] 5.4 10*3/uL Normal 4.4-11.0 [facility] Comment on above: Performed By: #### L 3200.1200, L100.0100 ####[facility] [address] [place], [address] Eosinophil percentageOrdered By: Philippe Gonzalez on 09-07-2024 Eosinophils/100 WBC (Bld) 1.5 % 0-5 [facility] Erythrocyte distribution wid th ratioOrdered By: Philippe Gonzalez on 09-07-2024 Erythrocyte distribution width (RBC) [Ratio] 12.0 % 11.6-14.6 [facility] Erythrocyte distribution wid th standard deviationOrdered By: Philippe Gonzalez on 09-07-2024 Erythrocyte distribution width (RBC) [Ratio] 40.1 fl 35.1-43.9 [facility] Hematocrit Auto (Bld) [Volum e fraction]Ordered By: Philippe Gonzalez on 09-07-2024 Hematocrit (Bld) [Volume fraction] 41.4 % 37-47 [facility] Hemoglobin measurementOrdere d By: Philippe Gonzalez on 09-07-2024 Hemoglobin (Bld) [Mass/Vol] 14.0 g/dL 12.0-15.0 [facility] Immature granulocytes/100 WB C Auto (Bld)Ordered By: Philippe Gonzalez on 09-07-2024 Immature granulocytes/100 WBC (Bld) 0.400 % 0.0-0.9 [facility] Comment on above: IG% - Immature Granu locytes (promyelocytes, myelocytes and metamyelocytes) > 1% indicates that a LEFT SHIFT is Present. MCV (mean corpuscular volume ) determinationOrdered By: Philippe Gonzalez on 09-07-2024 MCV (RBC) [Entitic vol] 91.6 fL 81-99 [facility] Mean corpuscular hemoglobin (MCH) determinationOrdered By: Philippe Gonzalez on 09-07-2024 MCH (RBC) [Entitic mass] 31.0 pg 27.0-32.0 [facility] Mean corpuscular hemoglobin concentration (MCHC) determinationOrdered By: Philippe Gonzalez on 09-07-2024 MCHC (RBC) [Mass/Vol] 33.8 g/dL 32-36 [facility] Mean platelet volume determi nationOrdered By: Philippe Gonzalez on 09-07-2024 Platelet mean volume (Bld) [Entitic vol] 9.9 fL 6.2-12.0 [facility] Monocyte percentageOrdered B y: Philippe Gonzalez on 09-07-2024 Monocytes/100 WBC (Bld) 14.8 % High 0-10 [facility] Neutrophil percentageOrdered By: Philippe Gonzalez on 09-07-2024 Neutrophils/100 WBC (Bld) 58.1 % 47-70 [facility] Nucleated red blood cell per centageOrdered By: Philippe Gonzalez on 09-07-2024 Nucleated RBC/100 WBC (Bld) [Ratio] 0 % 0-5 [facility] Platelet countOrdered By: Sherri Gonzalez on 09-07-2024 Platelets (Bld) [#/Vol] 369 10*3/uL 150-450 [facility] RBC Auto (Bld) [#/Vol]Ordere d By: Philippe Gonzalez on 09-07-2024 RBC (Bld) [#/Vol] 4.52 10*6/uL 4.2-5.4 [facility] Serum or plasma IgA measurem ent (mass/volume)Ordered By: Philippe Gonzalez on 09-07-2024 IgA [Mass/Vol] 186 mg/dL 87-352 [facility] Serum or plasma IgG measurem ent (mass/volume)Ordered By: Philippe Gonzalez on 09-07-2024 IgG [Mass/Vol] 1204 mg/dL 586-1602 [facility] White blood cell (WBC) count Ordered By: Philippe Gonzalez on 09-07-2024 WBC (Bld) [#/Vol] 5.4 10*3/uL 4.4-11.0 [facility] Breast imaging reportOrdered By: Christine Fernandes on 09-04-2024 Study report [facility] Services [address] [place] [address] SCRN MAMM (CAD)W/DARVIN BILAT MR#: [id number] Acct: [id number] Name: PRAFUL KAHN Rep #: [id number] : 1975 F 49 From: Sharan Lin MD PCP: COLLETTE PARKER MD Status: REG CLI Study:SCRN MAMM (CAD)W/DARVIN BILAT Date of Exa m: 09/04/24 Exam# [id number] 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 Reading Location: [facility] CC: TERRY Caicedo; COLLETTE PARKER MD Systems Support Specialist: Signed Normal [facility] Urine Cultureon 07-17-2024 [facility] Enterococcus faecali s [place] Count >100,000 Enterococcus faecalis: REACTION Ampicillin Islt JESSICA <=2 Ciprofloxacin Islt JESSICA <=0.5 S Gentamicin Synergy Susc Islt SYN-S S levoFLOXacin Islt JESSICA 1 S Linezolid Islt JESSICA 2 S Nitrofurantoin Islt JESSICA <=16 S Streptomycin High Pot Susc Islt SYN-S S Tetracycline Islt JESSICA <=1 S Vancomycin Islt JESSICA <=0.5 S Normal [facility] Comment on above: Performed By: #### M 100.2200 #### [facility] [address] [facility] [place], [address] Urine cultureon 07-15-2024 Bacteria identified Cx Nom (U) Enterococcus faecalis Abnormal [facility] Rubeola IgG Abon 07-06-2024 RUBEOLA Ab, IgG > 300.0 Normal Immune >16.4 [facility] Comment on above: Result Comment: Nega tive <13.5 Equivocal 13.5 - 16.4 Positive >16.4 Presence of antibodies to Rubeola is presumptive evidence of immunity except when acute infection is suspected. Performed at: - [facility] [id number] Manual Lathe Operator: Ej Landers PhD, Phone: [phone] Performed By: #### L 3933.4545 ####[facility] [address] [place], [address] MeV IgG IA Qn (S)on 07-06-19 Rubeola (Measles) IgG Antibody > 300.0 AU/mL Immune >16.4 [facility] Comment on above: Negative <13.5 Equiv ocal 13.5 - 16.4 Positive >16.4Presence of antibodies to Rubeola is presumptive evidenceof immunity except when acute infection is suspected.Performed at: [address] [id number] Director: Ej Landers PhD, Phone: [phone] Serum measles virus IgG anti body assay by immunoassay (units/volume)on 07-05-2024 MeV IgG IA Qn (S) > 300.0 AU/mL Immune >16.4 [facility] Comment on above: Negative <13.5 Equiv ocal 13.5 - 16.4 Positive >16.4Presence of antibodies to Rubeola is presumptive evidenceof immunity except when acute infection is suspected.Performed at: [address] [id number] Director: Ej Landers PhD, Phone: [phone] Anti-dsDNA Abon 06-27-2024 ANTI-DNA (DS)AB 2 IU/mL Normal 0-9 [facility] Comment on above: Result Comment: Nega tive <5 Equivocal 5 - 9 Positive >9 Performed at: [address] [id number] Manual Lathe Operator: Ej Landers PhD, Phone: [phone] Performed By: #### L 501.4100, L3100.5800, L3100.5500, L501.1000, L400.0001, L101.9900, L501.1105, L501.6710, L501.4405, L3100.5700, L100.0100 ####[facility] [address] [place], [place], [id number] Complement C3on 06-27-2024 COMP C3 118 mg/dL Normal 82-167 [facility] Comment on above: Result Comment: Perf ormed at: [address] [id number] Manual Lathe Operator: Ej Landers PhD, Phone: [phone] Performed By: #### L 501.4100, L3100.5800, L3100.5500, L501.1000, L400.0001, L101.9900, L501.1105, L501.6710, L501.4405, L3100.5700, L100.0100 ####[facility] [address] [place], [place], [address] Complement C4on 06-27-2024 COMPLEMENT, C4 20 mg/dL Normal 12-38 [facility] Comment on above: Performed By: #### L 501.4100, L3100.5800, L3100.5500, L501.1000, L400.0001, L101.9900, L501.1105, L501.6710, L501.4405, L3100.5700, L100.0100 ####[facility] [address] [place], [place], [phone] AST(SGOT)on 06-24-2024 AST [Catalytic activity/Vol] 20 U/L Normal <=31 [facility] Comment on above: Performed By: #### L 501.4100, L3100.5800, L3100.5500, L501.1000, L400.0001, L101.9900, L501.1105, L501.6710, L501.4405, L3100.5700, L100.0100 ####[facility] [address] [place], [place], [address] Absolute lymphocyte countOrd ered By: COLLETTE PARKER on 06-24-2024 Lymphocytes Auto (Unsp spec) [#/Vol] 1.33 10*3/uL 0.83-4.51 [facility] Absolute neutrophil countOrd ered By: COLLETTE PARKER on 06-24-2024 Neutrophils (Bld) [#/Vol] 4.6 10*3/uL 2.0-7.7 [facility] Alanine Aminotransferas (SGP T)on 06-24-2024 ALT [Catalytic activity/Vol] 16 U/L Normal <=34 [facility] Comment on above: Performed By: #### L 501.4100, L3100.5800, L3100.5500, L501.1000, L400.0001, L101.9900, L501.1105, L501.6710, L501.4405, L3100.5700, L100.0100 ####[facility] [address] [place], [place], [address] Automated lymphocyte count a s percentage of total leukocytesOrdered By: COLLETTE PARKER on 06-24-2024 Lymphocytes/100 WBC Auto (Unsp spec) 19.1 % 19- [facility] BUNon 06-24-2024 Urea nitrogen [Mass/Vol] 11 mg/dL Normal - [facility] Comment on above: Performed By: #### L 501.4100, L3100.5800, L3100.5500, L501.1000, L400.0001, L101.9900, L501.1105, L501.6710, L501.4405, L3100.5700, L100.0100 #### [facility] [address] [place], [place], [address] Bacteria LM.HPF (Urine sed) [#/Area]Ordered By: COLLETTE PARKER on 06-24-2024 Urine Bacteria RARE /hpf None Seen [facility] Basophil percentageOrdered B y: COLLETTE PARKER on 06-24-2024 Basophils/100 WBC (Bld) 1.0 % 0-1 [facility] Bilirubin Test strip Ql (U)O rdered By: COLLETTE PARKER on 06-24-2024 Bilirubin Ql (U) Negative Negative [facility] CBC W/Diff, Automatedon - Absolute Lymph 1.33 X10 3/uL Normal 0.83-4.51 [facility] Comment on above: Performed By: #### L 501.4100, L3100.5800, L3100.5500, L501.1000, L400.0001, L101.9900, L501.1105, L501.6710, L501.4405, L3100.5700, L100.0100 #### [facility] [address] [place], [address] Absolute Neut 4.6 X10 3/uL Normal 2.0-7.7 [facility] Comment on above: Performed By: #### L 501.4100, L3100.5800, L3100.5500, L501.1000, L400.0001, L101.9900, L501.1105, L501.6710, L501.4405, L3100.5700, L100.0100 #### [facility] [address] [place], [address] Basophils/100 WBC (Bld) 1.0 % Normal 0-1 [facility] Comment on above: Performed By: #### L 501.4100, L3100.5800, L3100.5500, L501.1000, L400.0001, L101.9900, L501.1105, L501.6710, L501.4405, L3100.5700, L100.0100 #### [facility] [address] [place], [address] Eosinophils/100 WBC (Bld) 1.4 % Normal 0-5 [facility] Comment on above: Performed By: #### L 501.4100, L3100.5800, L3100.5500, L501.1000, L400.0001, L101.9900, L501.1105, L501.6710, L501.4405, L3100.5700, L100.0100 #### [facility] [address] [facility] [place], [address] Erythrocyte distribution width (RBC) [Ratio] 11.9 % Normal 11.6-14.6 [facility] Comment on above: Performed By: #### L 501.4100, L3100.5800, L3100.5500, L501.1000, L400.0001, L101.9900, L501.1105, L501.6710, L501.4405, L3100.5700, L100.0100 #### [facility] [address] [place], [address] Hematocrit (Bld) [Volume fraction] 39.4 % Normal 37-47 [facility] Comment on above: Performed By: #### L 501.4100, L3100.5800, L3100.5500, L501.1000, L400.0001, L101.9900, L501.1105, L501.6710, L501.4405, L3100.5700, L100.0100 #### [facility] [address] [place], [address] Hemoglobin (Bld) [Mass/Vol] 13.4 g/dL Normal 12.0-15.0 [facility] Comment on above: Performed By: #### L 501.4100, L3100.5800, L3100.5500, L501.1000, L400.0001, L101.9900, L501.1105, L501.6710, L501.4405, L3100.5700, L100.0100 #### [facility] [address] [place], [address] IG% 0.700 Normal 0.0-0.9 [facility] Comment on above: Result Comment: IG% - Immature Granulocytes (promyelocytes, myelocytes and metamyelocytes) > 1% indicates that a LEFT SHIFT is Present. Performed By: #### L 501.4100, L3100.5800, L3100.5500, L501.1000, L400.0001, L101.9900, L501.1105, L501.6710, L501.4405, L3100.5700, L100.0100 #### [facility] [address] [place], [address] Lymphocytes/100 WBC (Bld) 19.1 % Normal 19-41 [facility] Comment on above: Performed By: #### L 501.4100, L3100.5800, L3100.5500, L501.1000, L400.0001, L101.9900, L501.1105, L501.6710, L501.4405, L3100.5700, L100.0100 #### [facility] [address] [place], [address] MCH (RBC) [Entitic mass] 31.0 pg Normal 27.0-32.0 [facility] Comment on above: Performed By: #### L 501.4100, L3100.5800, L3100.5500, L501.1000, L400.0001, L101.9900, L501.1105, L501.6710, L501.4405, L3100.5700, L100.0100 #### [facility] [address] [place], [address] MCHC (RBC) [Mass/Vol] 34.0 g/dL Normal 32-36 [facility] Comment on above: Performed By: #### L 501.4100, L3100.5800, L3100.5500, L501.1000, L400.0001, L101.9900, L501.1105, L501.6710, L501.4405, L3100.5700, L100.0100 #### [facility] [address] [place], [address] MCV (RBC) [Entitic vol] 91.2 fL Normal 81-99 [facility] Comment on above: Performed By: #### L 501.4100, L3100.5800, L3100.5500, L501.1000, L400.0001, L101.9900, L501.1105, L501.6710, L501.4405, L3100.5700, L100.0100 #### [facility] [address] [place], [address] Monocytes/100 WBC (Bld) 12.6 % High 0-10 [facility] Comment on above: Performed By: #### L 501.4100, L3100.5800, L3100.5500, L501.1000, L400.0001, L101.9900, L501.1105, L501.6710, L501.4405, L3100.5700, L100.0100 #### [facility] [address] [place], [address] Neutrophils/100 WBC (Bld) 65.2 % Normal 47-70 [facility] Comment on above: Performed By: #### L 501.4100, L3100.5800, L3100.5500, L501.1000, L400.0001, L101.9900, L501.1105, L501.6710, L501.4405, L3100.5700, L100.0100 #### [facility] [address] [place], [address] Nucleated RBC (Bld) [#/Vol] 0 10*3/uL Normal 0-5 [facility] Comment on above: Performed By: #### L 501.4100, L3100.5800, L3100.5500, L501.1000, L400.0001, L101.9900, L501.1105, L501.6710, L501.4405, L3100.5700, L100.0100 #### [facility] [address] [place], [address] Platelet mean volume (Bld) [Entitic vol] 10.1 fL Normal 6.2-12.0 [facility] Comment on above: Performed By: #### L 501.4100, L3100.5800, L3100.5500, L501.1000, L400.0001, L101.9900, L501.1105, L501.6710, L501.4405, L3100.5700, L100.0100 #### [facility] [address] [place], [address] Platelets (Bld) [#/Vol] 347 10*3/uL Normal 150-450 [facility] Comment on above: Performed By: #### L 501.4100, L3100.5800, L3100.5500, L501.1000, L400.0001, L101.9900, L501.1105, L501.6710, L501.4405, L3100.5700, L100.0100 #### [facility] [address] [place], [address] RBC (Bld) [#/Vol] 4.32 10*6/uL Normal 4.2-5.4 [facility] Comment on above: Performed By: #### L 501.4100, L3100.5800, L3100.5500, L501.1000, L400.0001, L101.9900, L501.1105, L501.6710, L501.4405, L3100.5700, L100.0100 #### [facility] [address] [place], [address] RDW SD 39.8 fl Normal 35.1-43.9 [facility] Comment on above: Performed By: #### L 501.4100, L3100.5800, L3100.5500, L501.1000, L400.0001, L101.9900, L501.1105, L501.6710, L501.4405, L3100.5700, L100.0100 #### [facility] [address] [place], [address] WBC (Bld) [#/Vol] 7.0 10*3/uL Normal 4.4-11.0 [facility] Comment on above: Performed By: #### L 501.4100, L3100.5800, L3100.5500, L501.1000, L400.0001, L101.9900, L501.1105, L501.6710, L501.4405, L3100.5700, L100.0100 #### [facility] [address] [place], [address] CRPon 06-24-2024 C-REACTIVE PROT < 3.00 Normal 0.0-3.0 [facility] Comment on above: Performed By: #### L 501.4100, L3100.5800, L3100.5500, L501.1000, L400.0001, L101.9900, L501.1105, L501.6710, L501.4405, L3100.5700, L100.0100 #### [facility] [address] [place], [address] CRP [Mass/Vol]Ordered By: RA KINA PARKER on 06-24-2024 C-Reactive Protein Extended Range < 3.00 mg/L 0.0-3.0 [facility] Complement C3 assayOrdered B y: COLLETTE PARKER on 06-24-2024 Complement C3 118 mg/dL 82-167 [facility] Comment on above: Performed at: - [facility] [place] [id number] Director: Ej Landers PhD, Phone: [phone] Complement C4 [Mass/Vol]Orde red By: COLLETTE PARKER on 06-24-2024 Complement C4 20 mg/dL 12-38 [facility] DNA double strand Ab Qn (S)O rdered By: COLLETTE PARKER on 06-24-2024 Anti-Double Strand DNA Antibody 2 IU/mL 0-9 [facility] Comment on above: Negative <5 Equivoca l 5 - 9 Positive >9Performed at: [place] [facility] [address] [id number] Director: Ej Landers PhD, Phone: [phone] Eosinophil percentageOrdered By: COLLETTE PARKER on 06-24-2024 Eosinophils/100 WBC (Bld) 1.4 % 0-5 [facility] Epithelial cells.squamous LM Ql (Urine sed)Ordered By: COLLETTE PARKER on 06-24-2024 Epithelial cells.squamous LM.HPF (Urine sed) [#/Area] 0 /[HPF] 5-10 [facility] Erythrocyte Sed Rateon 06-24 SED RATE < 1 Normal 0-30 [facility] Comment on above: Performed By: #### L 501.4100, L3100.5800, L3100.5500, L501.1000, L400.0001, L101.9900, L501.1105, L501.6710, L501.4405, L3100.5700, L100.0100 #### [facility] [address] [place], [place], [address] Erythrocyte distribution wid th ratioOrdered By: COLLETTE PARKER on 06-24-2024 Erythrocyte distribution width (RBC) [Ratio] 11.9 % 11.6-14.6 [facility] Erythrocyte distribution wid th standard deviationOrdered By: COLLETTE PARKER on 06-24-2024 Erythrocyte distribution width (RBC) [Entitic vol] 39.8 fL 35.1-43.9 [facility] Erythrocyte distribution width (RBC) [Ratio] 39.8 fl 35.1-43.9 [facility] Erythrocyte sedimentation ra teOrdered By: COLLETTE PARKER on 06-24-2024 ESR (Bld) [Velocity] mm/h 0-30 [facility] GFR/1.73 sq M.predicted tico g non-blacks MDRD (S/P/Bld) [Vol rate/Area]Ordered By: COLLETTE PARKER on 06-24-2024 Estimated GFR (MDRD) Non-Af Amer 83 >60 [facility] Comment on above: mL/min/1.73m2 CKD-EP I Creatinine Equation (2020) Glomerular filtration rate ( GFR) estimation/1.73 sq m using serum, plasma, or whole bOrdered By: COLLETTE PARKER on 06-24-2024 GFR/1.73 sq M.predicted among non-blacks MDRD (S/P/Bld) [Vol rate/Area] 83 mL/min/{1.73_m2} >60 [facility] Comment on above: mL/min/1.73m2 CKD-EP I Creatinine Equation (2020) Glucose Ql (U)Ordered By: RA KINA PARKER on 06-24-2024 Urine Glucose (UA) Normal mg/dl Normal [facility] Hematocrit Auto (Bld) [Volum e fraction]Ordered By: COLLETTE PARKER on 06-24-2024 Hematocrit (Bld) [Volume fraction] 39.4 % 37-47 [facility] Hemoglobin measurementOrdere d By: COLLETTE PARKER on 06-24-2024 Hemoglobin (Bld) [Mass/Vol] 13.4 g/dL 12.0-15.0 [facility] Immature granulocytes/100 WB C Auto (Bld)Ordered By: COLLETTE PARKER on 06-24-2024 Immature granulocytes/100 WBC (Bld) 0.700 % 0.0-0.9 [facility] Comment on above: IG% - Immature Granu locytes (promyelocytes, myelocytes and metamyelocytes) > 1% indicates that a LEFT SHIFT is Present. Ketones Test strip Ql (U)Ord ered By: COLLETTE PARKER on 06-24-2024 Ketones Ql (U) Negative Negative [facility] - Chemistry and C hemistry - challengeOrdered By: COLLETTE PARKER on 06-24-2024 AST [Catalytic activity/Vol] 20 U/L <32 [facility] Lymphocytes Auto (Unsp spec) [#/Vol]Ordered By: COLLETTE PARKER on 06-24-2024 Lymphocytes (Bld) [#/Vol] 1.33 10*3/uL 0.83-4.51 [facility] Lymphocytes/100 WBC Auto (Un sp spec)Ordered By: COLLETTE PARKER on 06-24-2024 Lymphocytes/100 WBC (Bld) 19.1 % 19-41 [facility] MCV (mean corpuscular volume ) determinationOrdered By: COLLETTE PARKER on 06-24-2024 MCV (RBC) [Entitic vol] 91.2 fL 81-99 [facility] Mean corpuscular hemoglobin (MCH) determinationOrdered By: COLLETTE PARKER on 06-24-2024 MCH (RBC) [Entitic mass] 31.0 pg 27.0-32.0 [facility] Mean corpuscular hemoglobin concentration (MCHC) determinationOrdered By: COLLETTE PARKER on 06-24-2024 MCHC (RBC) [Mass/Vol] 34.0 g/dL 32-36 [facility] Mean platelet volume determi nationOrdered By: COLLETTE PARKER on 06-24-2024 Platelet mean volume (Bld) [Entitic vol] 10.1 fL 6.2-12.0 [facility] Microscopic analysis of urin e for red blood cells (RBC)Ordered By: COLLETTE PARKER on 06-24-2024 Microscopic analysis of urine for red blood cells (RBC) 0 SEEN /hpf 0-5 [facility] Urine RBC 0 SEEN /hpf 0-5 [facility] Monocyte percentageOrdered B y: COLLETTE PARKER on 06-24-2024 Monocytes/100 WBC (Bld) 12.6 % High 0-10 [facility] Mucus LM Ql (Urine sed)Order ed By: COLLETTE PARKER on 06-24-2024 Mucus Ql (Urine sed) 0 SEEN /hpf [facility] Neutrophil percentageOrdered By: COLLETTE PARKER on 06-24-2024 Neutrophils/100 WBC (Bld) 65.2 % 47-70 [facility] Nitrite Test strip Ql (U)Ord ered By: COLLETTE PARKER on 06-24-2024 Nitrite Ql (U) Negative Negative [facility] Nucleated red blood cell per centageOrdered By: COLLETTE PARKER on 06-24-2024 Nucleated RBC/100 WBC (Bld) [Ratio] 0 % 0-5 [facility] Platelet countOrdered By: RA KINA PARKER on 06-24-2024 Platelets (Bld) [#/Vol] 347 10*3/uL 150-450 [facility] Protein Test strip Ql (U)Ord ered By: COLLETTE PARKER on 06-24-2024 Protein Ql (U) 15 mg/dl High Negative [facility] RBC Auto (Bld) [#/Vol]Ordere d By: COLLETTE PARKER on 06-24-2024 RBC (Bld) [#/Vol] 4.32 10*6/uL 4.2-5.4 [facility] Serum Creatinine AND GFRon 0 06-24-2024 Creatinine [Mass/Vol] 0.85 mg/dL Normal 0.70-1.20 [facility] Comment on above: Performed By: #### L 501.4100, L3100.5800, L3100.5500, L501.1000, L400.0001, L101.9900, L501.1105, L501.6710, L501.4405, L3100.5700, L100.0100 #### [facility] [address] [place], [place], [address] GFR/1.73 sq M.predicted among non-blacks MDRD (S/P/Bld) [Vol rate/Area] 83 mL/min/{1.73_m2} Normal >60 [facility] Comment on above: Result Comment: mL/m in/1.73m2 CKD-EPI Creatinine Equation (2020) Performed By: #### L 501.4100, L3100.5800, L3100.5500, L501.1000, L400.0001, L101.9900, L501.1105, L501.6710, L501.4405, L3100.5700, L100.0100 #### [facility] [address] [place], [address] Serum DNA double strand anti body assay (units/volume)Ordered By: COLLETTE PARKER on 06-24-2024 DNA double strand Ab Qn (S) 2 [IU]/mL 0-9 [facility] Comment on above: Negative <5 Equivoca l 5 - 9 Positive >9Performed at: - [facility] [place] [id number] Director: Ej Landers PhD, Phone: [phone] Serum creatinine measurement (mass/volume)Ordered By: COLLETTE PARKER on 06-24-2024 Creatinine [Mass/Vol] 0.85 mg/dL 0.70-1.20 [facility] Serum or plasma C reactive p rotein measurement (mass/volume)Ordered By: COLLETTE PARKER on 06-24-2024 CRP [Mass/Vol] mg/L 0.0-3.0 [facility] Serum or plasma alanine hernandez otransferase (ALT) measurementOrdered By: COLLETTE PARKER on 06-24-2024 ALT [Catalytic activity/Vol] 16 U/L <35 [facility] Serum or plasma complement C 4 measurement (mass/volume)Ordered By: COLLETTE PARKER on 06-24-2024 Complement C4 [Mass/Vol] 20 mg/dL 12-38 [facility] Serum or plasma urea nitroge n measurement (mass/volume)Ordered By: COLLETTE PARKER on 06-24-2024 Urea nitrogen [Mass/Vol] 11 mg/dL 4-19 [facility] Squamous epithelial cells de tection in urine sediment by light microscopyOrdered By: COLLETTE PARKER on 06-24-2024 Epithelial cells.squamous LM Ql (Urine sed) 0-5 SEEN /hpf 5-10 [facility] Urinalysis, Completeon 06-24 RBC 0 SEEN Normal 0-5 [facility] Comment on above: Order Comment: CLEAN CATCH Performed By: #### L 501.4100, L3100.5800, L3100.5500, L501.1000, L400.0001, L101.9900, L501.1105, L501.6710, L501.4405, L3100.5700, L100.0100 ####[facility] [address] [place], [address] Urine blood detectionOrdered By: COLLETTE PARKER on 06-24-2024 Urine Occult Blood Negative Negative [facility] Urine clarityOrdered By: KALINA PARKER on 06-24-2024 Clarity (U) Clear Clear [facility] Urine color determinationOrd ered By: COLLETTE PARKER on 06-24-2024 Color (U) Yellow Yellow [facility] Urine glucose detectionOrder ed By: COLLETTE PARKER on 06-24-2024 Glucose Ql (U) Normal mg/dl Normal [facility] Urine leukocyte esterase det ection by dipstickOrdered By: COLLETTE PARKER on 06-24-2024 Leukocyte esterase Test strip Ql (U) 25 /ul High Negative [facility] Urine pHOrdered By: COLLETTE ALSTON on 06-24-2024 pH (U) 5.0 [pH] 5.0 - 8.0 [facility] Urine sediment bacteria coun t by microscopy (number/high power field)Ordered By: COLLETTE PARKER on 06-24-2024 Bacteria LM.HPF (Urine sed) [#/Area] RARE /hpf None Seen [facility] Urine specific gravity measu rementOrdered By: COLLETTE PARKER on 06-24-2024 Specific gravity (U) [Rel density] 1.025 1.002-1.03 0 [facility] Urine urobilinogen measureme ntOrdered By: COLLETTE PARKER on 06-24-2024 Urobilinogen Ql (U) Normal mg/dl Normal [facility] Urobilinogen Ql (U)Ordered B y: COLLETTE PARKER on 06-24-2024 Urine Urobilinogen Normal mg/dl Normal [facility] White blood cell (WBC) count Ordered By: COLLETTE PARKER on 06-24-2024 WBC (Bld) [#/Vol] 7.0 10*3/uL 4.4-11.0 [facility] White blood cell countOrdere d By: COLLETTE PARKER on 06-24-2024 Urine WBC 0-5 SEEN /hpf 0-5 [facility] White blood cell count 0-5 SEEN /hpf 0-5 [facility] Direct serum free thyroxine (FT4) measurementOrdered By: Radha Caicedo on 05-17-2024 Free T4 [Mass/Vol] 0.78 ng/dL 0.76-1.46 [facility] Estradiolon 05-17-2024 ESTRADIOL 83.9 pg/mL Normal [facility] Comment on above: Result Comment: NORM [...] Performed By: #### L 3100.5055, L3300.1750, L501.9520, L501.68160, L506.0400 ####[facility] [id number] [place], [address] Estradiol measurementOrdered By: Radha Caicedo on 05-17-2024 Estradiol (E2) Level 83.9 pg/mL [facility] Comment on above: NORMAL REFERENCE RAN GES [...] and LHon 05-17-2024 FSH 29.8 mIU/mL Normal [facility] Comment on above: Result Comment: NORMAL REFERENCE RANGES FEMALE FOLLICULAR 2.3 - 12.6 mIU/mL MID-CYCLE PEAK 5.2 - 17.5 mIU/mL LUTEAL 1.7 - 12.9 mIU/mL POST-MENOPAUSAL ON MHT 5.9 - 72.8 mIU/mL NOT ON MHT 12.7 - 132.2 mlU/mL MALE 0.7 - 10.8 mIU/mL Performed By: #### L 3100.5055, L3300.1750, L501.9520, L501.85786, L506.0400 ####[facility] [address] [place], [place], [address] LH 13.2 mIU/mL Normal [facility] Comment on above: Result Comment: NORMAL REFERENCE RANGES FEMALE FOLLICULAR 1.9 - 26.2 mIU/mL MID-CYCLE PEAK 22.8 - 76.1 mIU/mL LUTEAL 0.6 - 16.6 mIU/mL POST-MENOPAUSAL ON MHT 1.1 - 52.4 mIU/mL NOT ON MHT 8.6 - 61.8 mIU/mL MALE 1.2 - 10.6 mIU/mL Performed By: #### L 3100.5055, L3300.1750, L501.9520, L501.89378, L506.0400 ####[facility] [address] [place], [place], [id number] Follicle stimulating hormone (FSH) levelOrdered By: Radha Caicedo on 05-17-2024 Follicle Stimulating Hormone 29.8 mIU/mL [facility] Comment on above: NORMAL REFERENCE RAN GES FEMALE FOLLICULAR 2.3 - 12.6 mIU/mL MID-CYCLE PEAK 5.2 - 17.5 mIU/mL LUTEAL 1.7 - 12.9 mIU/mL POST-MENOPAUSAL ON MHT 5.9 - 72.8 mIU/mL NOT ON MHT 12.7 - 132.2 mlU/mL MALE 0.7 - 10.8 mIU/mL Free T3on 05-17-2024 Free T3 [Mass/Vol] 2.4 pg/mL Normal 2.18-3.98 [facility] Comment on above: Performed By: #### L 3100.5055, L3300.1750, L501.9520, L501.51209, L506.0400 ####[facility] [address] [place], [place], [id number] Free V9Wsagaew By: Radha sanchez on 05-17-2024 Free T3 [Mass/Vol] 2.4 pg/mL 2.18-3.98 [facility] Free Triiodothyronine (T3) pg/dL 2.4 pg/mL 2.18-3.98 [facility] Luteinizing hormone measurem entOrdered By: Radha Caicedo on 05-17-2024 Luteinizing Hormone 13.2 mIU/mL [facility] Comment on above: NORMAL REFERENCE RAN GES [...] 05-17-2024 TSH Qn 1.580 uIU/mL 0.358-3.74 0 [facility] T4 Free Directon 05-17-2024 T4 FREE DIRECT 0.78 ng/dL Normal 0.76-1.46 [facility] Comment on above: Performed By: #### L 3100.5055, L3300.1750, L501.9520, L501.36355, L506.0400 ####[facility] [address] [place], [place], [address] TSH QnOrdered By: Radha Sawyer on 05-17-2024 Thyroid Stimulating Hormone (TSH) 1.580 uIU/mL 0.358-3.74 0 [facility] Thyroid Stim Hormone (TSH)on 05-17-2024 TSH 1.580 uIU/mL Normal 0.358-3.74 0 [facility] Comment on above: Performed By: #### L 3100.5055, L3300.1750, L501.9520, L501.84413, L506.0400 ####[facility] [address] 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 Required: No Is patient in pain?: No [...] known: No Patient : No : No [facility] Medical History Small intestinal bacterial overgrowth (SIBO) Wears glasses GERD (gastroesophageal reflux disease) Non-smoker Surgical History History of endometrial ablation H/O knee surgery History of appendectomy H/O nasal septoplasty Family History Uncle Cancer Liver Social History household members: spouse number of children: 1 current occupational status: employed 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 Normal [facility] Immunoglobulins G/A/Mon 12-0 IMMUNOGLOB A QN 177 mg/dL Normal 87-352 [facility] Comment on above: Order Comment: Y Performed By: #### L 100.0100, L3200.1200 #### [facility] [address] [place], [address] IMMUNOGLOB G QN 1171 mg/dL Normal 586-1602 [facility] Comment on above: Order Comment: Y Performed By: #### L 100.0100, L3200.1200 #### [facility] [address] [place], [place], [id number] IMMUNOGLOB M QN 78 mg/dL Normal 26-217 [facility] Comment on above: Order Comment: Y Result Comment: Perf ormed at: - [facility] [address] [id number] Manual Lathe Operator: Ej Landers PhD, Phone: [phone] Performed By: #### L 100.0100, L3200.1200 #### [facility] [address] [place], [place], [address] Absolute neutrophil countOrd ered By: Philippe Gonzalez on 02-29-2024 Neutrophils (Bld) [#/Vol] 4.0 10*3/uL 2.0-7.7 [facility] Absolute neutrophil countOrd ered By: [facility] on 02-29-2024 Neutrophils (Bld) [#/Vol] 4.0 10*3/uL 2.0-7.7 [facility] Albumin to globulin ratioOrd ered By: [facility] on 02-29-2024 Albumin/Globulin [Mass ratio] 1.2 {ratio} 0.9-2.4 [facility] Basophil percentageOrdered B y: Philippe Manzolai on 02-29-2024 Basophils/100 WBC (Bld) 1.0 % 0-1 [facility] Bilirubin directOrdered By: [facility] on 02-29-2024 Bilirubin.direct [Mass/Vol] 0.30 mg/dL 0.00-0.30 [facility] Bilirubin, totalOrdered By: [facility] on 02-29-2024 Bilirubin [Mass/Vol] 1.10 mg/dL High 0.20-1.00 [facility] Comment on above: For patients on eltr ombopag therapy, use of Dimension Mathews TBIL is not recommended. Blood platelets count (numbe r/volume)Ordered By: [employer] [facility] on 02-29-2024 Platelets (Bld) [#/Vol] 391 10*3/uL 150-450 [facility] Blood urea nitrogen (BUN)/cr eatinine ratioOrdered By: [facility] on 02-29-2024 Urea nitrogen/Creatinine [Mass ratio] 13.3 mg/mg 10-20 [facility] CBC W/Diff, Automatedon 12-0 -2023 Absolute Lymph 1.12 X10 3/uL Normal 0.83-4.51 [facility] Comment on above: Performed By: #### L 100.0100, L3200.1200 #### [facility] [address] [place], [address] Absolute Neut 4.0 X10 3/uL Normal 2.0-7.7 [facility] Comment on above: Performed By: #### L 100.0100, L3200.1200 #### [facility] [address] [place], [address] Basophils/100 WBC (Bld) 1.0 % Normal 0-1 [facility] Comment on above: Performed By: #### L 100.0100, L3200.1200 #### [facility] [address] [place], [address] Eosinophils/100 WBC (Bld) 1.8 % Normal 0-5 [facility] Comment on above: Performed By: #### L 100.0100, L3200.1200 #### [facility] [address] [place], [address] Erythrocyte distribution width (RBC) [Ratio] 12.1 % Normal 11.6-14.6 [facility] Comment on above: Performed By: #### L 100.0100, L3200.1200 #### [facility] [address] [place], [address] Hematocrit (Bld) [Volume fraction] 38.7 % Normal 37-47 [facility] Comment on above: Performed By: #### L 100.0100, L3200.1200 #### [facility] [address] [place], [address] Hemoglobin (Bld) [Mass/Vol] 13.1 g/dL Normal 12.0-15.0 [facility] Comment on above: Performed By: #### L 100.0100, L3200.1200 #### [facility] [address] [place], [address] IG% 0.500 Normal 0.0-0.9 [facility] Comment on above: Result Comment: IG% - Immature Granulocytes (promyelocytes, myelocytes and metamyelocytes) > 1% indicates that a LEFT SHIFT is Present. Performed By: #### L 100.0100, L3200.1200 #### [facility] [address] [place], [address] Lymphocytes/100 WBC (Bld) 18.1 % Low 19-41 [facility] Comment on above: Performed By: #### L 100.0100, L3200.1200 #### [facility] [address] [place], [address] MCH (RBC) [Entitic mass] 30.9 pg Normal 27.0-32.0 [facility] Comment on above: Performed By: #### L 100.0100, L3200.1200 #### [facility] [address] [place], [address] MCHC (RBC) [Mass/Vol] 33.9 g/dL Normal 32-36 [facility] Comment on above: Performed By: #### L 100.0100, L3200.1200 #### [facility] [address] [place], [address] MCV (RBC) [Entitic vol] 91.3 fL Normal 81-99 [facility] Comment on above: Performed By: #### L 100.0100, L3200.1200 #### [facility] [address] [place], [address] Monocytes/100 WBC (Bld) 13.4 % High 0-10 [facility] Comment on above: Performed By: #### L 100.0100, L3200.1200 #### [facility] [address] [place], [address] Neutrophils/100 WBC (Bld) 65.2 % Normal 47-70 [facility] Comment on above: Performed By: #### L 100.0100, L3200.1200 #### [facility] [address] [place], [address] Nucleated RBC (Bld) [#/Vol] 0 10*3/uL Normal 0-5 [facility] Comment on above: Performed By: #### L 100.0100, L3200.1200 #### [facility] [address] [place], [address] Platelet mean volume (Bld) [Entitic vol] 9.7 fL Normal 6.2-12.0 [facility] Comment on above: Performed By: #### L 100.0100, L3200.1200 #### [facility] [address] [place], [address] Platelets (Bld) [#/Vol] 391 10*3/uL Normal 150-450 [facility] Comment on above: Performed By: #### L 100.0100, L3200.1200 #### [facility] [address] [place], [address] RBC (Bld) [#/Vol] 4.24 10*6/uL Normal 4.2-5.4 [facility] Comment on above: Performed By: #### L 100.0100, L3200.1200 #### [facility] [address] [place], [address] RDW SD 40.6 fl Normal 35.1-43.9 [facility] Comment on above: Performed By: #### L 100.0100, L3200.1200 #### [facility] [address] [place], [address] WBC (Bld) [#/Vol] 6.2 10*3/uL Normal 4.4-11.0 [facility] Comment on above: Performed By: #### L 100.0100, L3200.1200 #### [facility] [address] [place], [address] CBC, Employeeon 02-29-2024 Nucleated RBC (Bld) [#/Vol] 0 10*3/uL Normal 0-5 [facility] Comment on above: Performed By: #### L 100.0200, L500.2900 ####[facility] [address] [place], [address] Absolute Lymph 1.12 X10 3/uL Normal 0.83-4.51 [facility] Comment on above: Performed By: #### L 100.0200, L500.2900 ####[facility] [address] [place], [address] Absolute Neut 4.0 X10 3/uL Normal 2.0-7.7 [facility] Comment on above: Performed By: #### L 100.0200, L500.2900 ####[facility] [address] [place], [address] Basophils/100 WBC (Bld) 1.0 % Normal 0-1 [facility] Comment on above: Performed By: #### L 100.0200, L500.2900 ####[facility] [address] [place], [address] Eosinophils/100 WBC (Bld) 1.8 % Normal 0-5 [facility] Comment on above: Performed By: #### L 100.0200, L500.2900 ####[facility] [address] [place], [address] Erythrocyte distribution width (RBC) [Ratio] 12.1 % Normal 11.6-14.6 [facility] Comment on above: Performed By: #### L 100.0200, L500.2900 ####[facility] [address] [place], [address] Hematocrit (Bld) [Volume fraction] 38.7 % Normal 37-47 [facility] Comment on above: Performed By: #### L 100.0200, L500.2900 ####[facility] [address] [place], [address] Hemoglobin (Bld) [Mass/Vol] 13.1 g/dL Normal 12.0-15.0 [facility] Comment on above: Performed By: #### L 100.0200, L500.2900 ####[facility] [address] [place], [address] IG % 0.500 Normal 0.0-0.9 [facility] Comment on above: Result Comment: IG% - Immature Granulocytes (promyelocytes, myelocytes and metamyelocytes) > 1% indicates that a LEFT SHIFT is Present. Performed By: #### L 100.0200, L500.2900 ####[facility] [address] [place], [address] Lymphocytes/100 WBC (Bld) 18.1 % Low 19-41 [facility] Comment on above: Performed By: #### L 100.0200, L500.2900 ####[facility] [address] [place], [address] MCH (RBC) [Entitic mass] 30.9 pg Normal 27.0-32.0 [facility] Comment on above: Performed By: #### L 100.0200, L500.2900 ####[facility] [address] [place], [address] MCHC (RBC) [Mass/Vol] 33.9 g/dL Normal 32-36 [facility] Comment on above: Performed By: #### L 100.0200, L500.2900 ####[facility] [address] [place], [address] MCV (RBC) [Entitic vol] 91.3 fL Normal 81-99 [facility] Comment on above: Performed By: #### L 100.0200, L500.2900 ####[facility] [address] [place], [address] Monocytes/100 WBC (Bld) 13.4 % High 0-10 [facility] Comment on above: Performed By: #### L 100.0200, L500.2900 ####[facility] [address] [place], [address] Neutrophils/100 WBC (Bld) 65.2 % Normal 47-70 [facility] Comment on above: Performed By: #### L 100.0200, L500.2900 ####[facility] [address] [place], [address] Platelet mean volume (Bld) [Entitic vol] 9.7 fL Normal 6.2-12.0 [facility] Comment on above: Performed By: #### L 100.0200, L500.2900 ####[facility] [address] [place], [address] Platelets (Bld) [#/Vol] 391 10*3/uL Normal 150-450 [facility] Comment on above: Performed By: #### L 100.0200, L500.2900 ####[facility] [address] [place], [address] RBC (Bld) [#/Vol] 4.24 10*6/uL Normal 4.2-5.4 [facility] Comment on above: Performed By: #### L 100.0200, L500.2900 ####[facility] [address] [place], [address] RDW SD 40.6 fl Normal 35.1-43.9 [facility] Comment on above: Performed By: #### L 100.0200, L500.2900 ####[facility] [address] [place], [address] WBC (Bld) [#/Vol] 6.2 10*3/uL Normal 4.4-11.0 [facility] Comment on above: Performed By: #### L 100.0200, L500.2900 ####[facility] [address] [place], [address] Carbon dioxide measurementOr dered By: [facility] on 02-29-2024 CO2 [Moles/Vol] 26.0 mmol/L 21.0-32.0 [facility] Chloride measurementOrdered By: [facility] on 02-29-2024 Chloride [Moles/Vol] 109 mmol/L High 98-107 [facility] Cholesterol/HDL ratioOrdered By: [facility] on 02-29-2024 Cholesterol.total/Choles terol in HDL [Mass ratio] 2.40 {ratio} [facility] [employer] Albumin [Mass/Vol] 3.8 g/dL Normal 3.2-5.0 [facility] Comment on above: Performed By: #### L 100.0200, L500.2900 ####[facility] [address] [place], [address] Albumin/Globulin [Mass ratio] 1.2 {ratio} Normal 0.9-2.4 [facility] Comment on above: Performed By: #### L 100.0200, L500.2900 ####[facility] [address] [place], [address] ALK P 64 U/L Normal 45-117 [facility] Comment on above: Performed By: #### L 100.0200, L500.2900 ####[facility] [address] [place], [address] ALT [Catalytic activity/Vol] 23 U/L Normal 13-56 [facility] Comment on above: Performed By: #### L 100.0200, L500.2900 ####[facility] [address] [place], [address] AST [Catalytic activity/Vol] 18 U/L Normal 15-37 [facility] Comment on above: Performed By: #### L 100.0200, L500.2900 ####[facility] [address] [place], [address] Bilirubin [Mass/Vol] 1.10 mg/dL High 0.20-1.00 [facility] Comment on above: Result Comment: For patients on eltrombopag therapy, use of Dimension Mathews TBIL is not recommended. Performed By: #### L 100.0200, L500.2900 ####[facility] [address] [place], [address] Bilirubin.direct [Mass/Vol] 0.30 mg/dL Normal 0.00-0.30 [facility] Comment on above: Performed By: #### L 100.0200, L500.2900 ####[facility] [address] [place], [address] BUN/CRE 13.3 RATIO Normal 10-20 [facility] Comment on above: Performed By: #### L 100.0200, L500.2900 ####[facility] [address] [place], [address] CA,Total 8.8 mg/dL Normal 8.5-10.1 [facility] Comment on above: Performed By: #### L 100.0200, L500.2900 ####[facility] [address] [place], [address] Chloride [Moles/Vol] 109 mmol/L High 98-107 [facility] Comment on above: Performed By: #### L 100.0200, L500.2900 ####[facility] [address] [place], [address] CHOL:HDL 2.40 Normal [facility] Comment on above: Performed By: #### L 100.0200, L500.2900 ####[facility] [address] [place], [address] Cholesterol [Mass/Vol] 159 mg/dL Normal [address] [facility] Comment on above: Result Comment: <200 mg/dL Desirable 200-240 mg/dL Borderline >240 mg/dL High Risk Performed By: #### L 100.0200, L500.2900 ####[facility] [address] [place], [address] Cholesterol in HDL [Mass/Vol] 67 mg/dL Normal [facility] Comment on above: Result Comment: The drugs N-Acetylcysteine and Metamizole may falsely depress this assay. Reference Range HDL <40 mg/dL Low HDL Cholesterol HDL >or= 60 mg/dL High HDL Cholesterol Performed By: #### L 100.0200, L500.2900 ####[facility] [address] [place], [address] Cholesterol in LDL [Mass/Vol] 70 mg/dL Normal 0-130 [facility] Comment on above: Performed By: #### L 100.0200, L500.2900 ####[facility] [address] [place], [address] Cholesterol in VLDL [Mass/Vol] 22 mg/dL Normal 5-40 [facility] Comment on above: Performed By: #### L 100.0200, L500.2900 ####[facility] [address] [place], [address] CO2 [Moles/Vol] 26.0 mmol/L Normal 21.0-32.0 [facility] Comment on above: Performed By: #### L 100.0200, L500.2900 ####[facility] [address] [place], [address] Creatinine [Mass/Vol] 0.83 mg/dL Normal 0.55-1.02 [facility] Comment on above: Result Comment: The validity of the calculated GFR GFRAA in patients over 70 years has not been determined. Clinical correlation is essential. Performed By: #### L 100.0200, L500.2900 ####[facility] [address] [place], [address] EST GFR - AA 93 mL/min Normal >60 [facility] Comment on above: Result Comment: Afri can Congolese GFR Calc Performed By: #### L 100.0200, L500.2900 ####[facility] [address] [place], [address] GAP 4 Low 5-15 [facility] Comment on above: Performed By: #### L 100.0200, L500.2900 ####[facility] [address] [place], [address] GFR/1.73 sq M.predicted among non-blacks MDRD (S/P/Bld) [Vol rate/Area] 77 mL/min/{1.73_m2} Normal >60 [facility] Comment on above: Result Comment: Non- GFR Calc Performed By: #### L 100.0200, L500.2900 ####[facility] [address] [place], [address] Globulin (S) [Mass/Vol] 3.3 g/dL Normal 2.2-4.2 [facility] Comment on above: Performed By: #### L 100.0200, L500.2900 ####[facility] [address] [place], [address] Glucose [Mass/Vol] 86 mg/dL Normal 74-106 [facility] Comment on above: Performed By: #### L 100.0200, L500.2900 ####[facility] [address] [place], [address] LDH 196 U/L Normal 84-246 [facility] Comment on above: Performed By: #### L 100.0200, L500.2900 ####[facility] [address] [place], [address] Phosphate [Mass/Vol] 2.6 mg/dL Normal 2.5-4.9 [facility] Comment on above: Performed By: #### L 100.0200, L500.2900 ####[facility] [address] [place], [address] Potassium [Moles/Vol] 3.6 mmol/L Normal 3.5-5.1 [facility] Comment on above: Performed By: #### L 100.0200, L500.2900 ####[facility] [address] [place], [address] Sodium [Moles/Vol] 140 mmol/L Normal 136-145 [facility] Comment on above: Performed By: #### L 100.0200, L500.2900 ####[facility] [address] [place], [address] T PROT 7.1 g/dL Normal 6.4-8.2 [facility] Comment on above: Performed By: #### L 100.0200, L500.2900 ####[facility] [address] [place], [address] Triglyceride [Mass/Vol] 112 mg/dL Normal [facility] Comment on above: Result Comment: The drugs N-Acetylcysteine and Metamizole may falsely depress this assay. Serum Triglycerides Reference Interval Normal <150 mg/dL Borderline high 150 - 199 mg/dL High 200 - 499 mg/dL Very High > or = 500 mg/dL Performed By: #### L 100.0200, L500.2900 ####[facility] [address] [place], [address] Urea nitrogen [Mass/Vol] 11 mg/dL Normal 7-18 [facility] Comment on above: Performed By: #### L 100.0200, L500.2900 ####[facility] [address] [place], [address] URIC 3.3 mg/dL Normal 2.6-6.0 [facility] Comment on above: Result Comment: The drugs N-Acetylcysteine and Metamizole may falsely depress this assay. Performed By: #### L 100.0200, L500.2900 ####[facility] [address] [place], [address] Eosinophil percentageOrdered By: Philippe Gonzalez on 02-29-2024 Eosinophils/100 WBC (Bld) 1.8 % 0-5 [facility] Erythrocyte distribution wid th ratioOrdered By: Philippe Gonzalez on 02-29-2024 Erythrocyte distribution width (RBC) [Ratio] 12.1 % 11.6-14.6 [facility] Erythrocyte distribution wid th ratioOrdered By: [facility] on 02-29-2024 Erythrocyte distribution width (RBC) [Ratio] 12.1 % 11.6-14.6 [facility] Erythrocyte distribution wid th standard deviationOrdered By: Philippe Gonzalez on 02-29-2024 Erythrocyte distribution width (RBC) [Entitic vol] 40.6 fL 35.1-43.9 [facility] Estimated glomerular filtrat ion rate (GFR) AmericanOrdered By: [employer] on 02-29-2024 Estimated GFR (MDRD) Amer 93 mL/min >60 [facility] Comment on above: GFR Calc Glomerular filtration rate ( GFR) estimationOrdered By: [facility] on 02-29-2024 Estimated GFR (MDRD) Non-Af Amer 77 mL/min >60 [facility] Comment on above: Non- GFR Calc Glucose measurementOrdered B y: [employer] [facility] on 02-29-2024 Glucose [Mass/Vol] 86 mg/dL 74-106 [facility] Hematocrit Auto (Bld) [Volum e fraction]Ordered By: Philippe Gonzalez on 02-29-2024 Hematocrit (Bld) [Volume fraction] 38.7 % 37-47 [facility] Hematocrit Auto (Bld) [Volum e fraction]Ordered By: [employer] [facility] on 02-29-2024 Hematocrit (Bld) [Volume fraction] 38.7 % 37-47 [facility] Hemoglobin measurementOrdere d By: Philippe Gonzalez on 02-29-2024 Hemoglobin (Bld) [Mass/Vol] 13.1 g/dL 12.0-15.0 [facility] Hemoglobin measurementOrdere d By: [employer] [facility] on 02-29-2024 Hemoglobin (Bld) [Mass/Vol] 13.1 g/dL 12.0-15.0 [facility] High density lipoprotein (HD L) measurementOrdered By: [facility] on 02-29-2024 Cholesterol in HDL [Mass/Vol] 67 mg/dL >40 [facility] Comment on above: The drugs N-Acetylcy steine and Metamizole may falsely depress this assay. Reference Range HDL <40 mg/dL Low HDL Cholesterol HDL >or= 60 mg/dL High HDL Cholesterol IgA [Mass/Vol]Ordered By: Sherri Gonzalez on 02-29-2024 Immunoglobulin A 177 mg/dL 87-352 [facility] IgG [Mass/Vol]Ordered By: [facility]iga [facility] Immunoglobulin G 1171 mg/dL [phone] [facility] Immature granulocyte percent ageOrdered By: [employer] [facility] on 02-29-2024 Immature granulocytes/100 WBC (Bld) 0.500 % 0.0-0.9 [facility] Comment on above: IG% - Immature Granu locytes (promyelocytes, myelocytes and metamyelocytes) > 1% indicates that a LEFT SHIFT is Present. Immature granulocytes/100 WB C Auto (Bld)Ordered By: Philippe Gonzalez on 02-29-2024 Immature granulocytes/100 WBC (Bld) 0.500 % 0.0-0.9 [facility] Comment on above: IG% - Immature Granu locytes (promyelocytes, myelocytes and metamyelocytes) > 1% indicates that a LEFT SHIFT is Present. Immunoglobulin M measurement Ordered By: Philippe Gonzalez on 02-29-2024 Immunoglobulin M 78 mg/dL 26-217 [facility] Comment on above: Performed at: [facility] [place], [place] [id number] Director: Ej Landers PhD, Phone: [phone] Laboratory - Chemistry and C hemistry - challengeOrdered By: [facility] on 02-29-2024 AST [Catalytic activity/Vol] 18 U/L 15-37 [facility] Lactate dehydrogenase (LDH) measurementOrdered By: [facility] on 02-29-2024 LDH [Catalytic activity/Vol] 196 U/L 84-246 [facility] Low density lipoprotein (LDL ) cholesterol measurementOrdered By: [facility] on 02-29-2024 Cholesterol in LDL [Mass/Vol] 70 mg/dL 0-130 [facility] Lymphocytes Auto (Unsp spec) [#/Vol]Ordered By: Philippe Anaislai on 02-29-2024 Lymphocytes (Bld) [#/Vol] 1.12 10*3/uL 0.83-4.51 [facility] Lymphocytes Auto (Unsp spec) [#/Vol]Ordered By: [facility] on 02-29-2024 Lymphocytes (Bld) [#/Vol] 1.12 10*3/uL 0.83-4.51 [facility] Lymphocytes/100 WBC Auto (Un sp spec)Ordered By: Philippe Gonzalez on 02-29-2024 Lymphocytes/100 WBC (Bld) 18.1 % Low 19-41 [facility] MCV (mean corpuscular volume ) determinationOrdered By: Philippe Gonzalez on 02-29-2024 MCV (RBC) [Entitic vol] 91.3 fL 81-99 [facility] MCV (mean corpuscular volume ) determinationOrdered By: [facility] on 02-29-2024 MCV (RBC) [Entitic vol] 91.3 fL 81-99 [facility] Mean corpuscular hemoglobin (MCH) determinationOrdered By: Philippe Gonzalez on 02-29-2024 MCH (RBC) [Entitic mass] 30.9 pg 27.0-32.0 [facility] Mean corpuscular hemoglobin (MCH) determinationOrdered By: [facility] on 02-29-2024 MCH (RBC) [Entitic mass] 30.9 pg 27.0-32.0 [facility] Mean corpuscular hemoglobin concentration (MCHC) determinationOrdered By: Philippe Gonzalez on 02-29-2024 MCHC (RBC) [Mass/Vol] 33.9 g/dL 32-36 [facility] Mean corpuscular hemoglobin concentration (MCHC) determinationOrdered By: [employer] on 02-29-2024 MCHC (RBC) [Mass/Vol] 33.9 g/dL 32-36 [facility] Mean platelet volume determi nationOrdered By: Philippe Anaislai on 02-29-2024 Platelet mean volume (Bld) [Entitic vol] 9.7 fL 6.2-12.0 [facility] Mean platelet volume determi nationOrdered By: [employer] on 02-29-2024 Platelet mean volume (Bld) [Entitic vol] 9.7 fL 6.2-12.0 [facility] Monocyte percentageOrdered B y: Philippe Gonzalez on 02-29-2024 Monocytes/100 WBC (Bld) 13.4 % High 0-10 [facility] Neutrophil %Ordered By: [employer] on 02-29-2024 Neutrophils/100 WBC (Bld) 65.2 % 47-70 [facility] Neutrophil percentageOrdered By: Philippe Lisa on 02-29-2024 Neutrophils/100 WBC (Bld) 65.2 % 47-70 [facility] Nucleated red blood cell per centageOrdered By: Philippe Gonzalez on 02-29-2024 Nucleated RBC/100 WBC (Bld) [Ratio] 0 % 0-5 [facility] Nucleated red blood cell per centageOrdered By: [employer] on 02-29-2024 Nucleated RBC/100 WBC (Bld) [Ratio] 0 % 0-5 [facility] Phosphorus measurementOrdere d By: [employer] on 02-29-2024 Phosphorus Level 2.6 mg/dL 2.5-4.9 [facility] Platelet countOrdered By: Sherri Gonzalez on 02-29-2024 Platelets (Bld) [#/Vol] 391 10*3/uL 150-450 [facility] Potassium measurementOrdered By: [employer] on 02-29-2024 Potassium [Moles/Vol] 3.6 mmol/L 3.5-5.1 [facility] RBC Auto (Bld) [#/Vol]Ordere d By: Philippe Gonzalez on 02-29-2024 RBC (Bld) [#/Vol] 4.24 10*6/uL 4.2-5.4 [facility] RBC Auto (Bld) [#/Vol]Ordere d By: [facility] on 02-29-2024 RBC (Bld) [#/Vol] 4.24 10*6/uL 4.2-5.4 [facility] RDWOrdered By: [facility] on 02-29-2024 Erythrocyte distribution width (RBC) [Entitic vol] 40.6 fL 35.1-43.9 [facility] Reticulocytes (Bld) [#/Vol]O rdered By: [facility] on 02-29-2024 Nucleated RBC Absolute Count (auto) Not Reportable [facility] Serum anion gap measurementO rdered By: [facility] on 02-29-2024 Anion gap [Moles/Vol] 4 mmol/L Low 5-15 [facility] Serum globulin measurementOr dered By: [facility] on 02-29-2024 Globulin (S) [Mass/Vol] 3.3 g/dL 2.2-4.2 [facility] Serum or plasma alanine hernandez otransferase (ALT) measurementOrdered By: [facility] on 02-29-2024 ALT [Catalytic activity/Vol] 23 U/L 13-56 [facility] Serum or plasma albumin gem urement (mass/volume)Ordered By: [facility] on 02-29-2024 Albumin [Mass/Vol] 3.8 g/dL 3.2-5.0 [facility] Serum or plasma alkaline chris sphatase measurementOrdered By: [facility] on 02-29-2024 ALP [Catalytic activity/Vol] 64 U/L 45-117 [facility] Serum or plasma calcium gem urement (mass/volume)Ordered By: [facility] on 02-29-2024 Calcium [Mass/Vol] 8.8 mg/dL 8.5-10.1 [facility] Serum or plasma cholesterol measurement (mass/volume)Ordered By: [facility] on 02-29-2024 Cholesterol [Mass/Vol] 159 mg/dL <200 [facility] Comment on above: <200 mg/dL Desirable 200-240 mg/dL Borderline >240 mg/dL High Risk Serum or plasma creatinine m easurement (mass/volume)Ordered By: [facility] on 02-29-2024 Creatinine [Mass/Vol] 0.83 mg/dL 0.55-1.02 [facility] Comment on above: The validity of the calculated GFR & GFRAA in patients over 70 years has not been determined. Clinical correlation is essential. Serum or plasma urea nitroge n measurement (mass/volume)Ordered By: [facility] on 02-29-2024 Urea nitrogen [Mass/Vol] 11 mg/dL 7-18 [facility] Serum or plasma uric acid me asurement (mass/volume)Ordered By: [facility] on 02-29-2024 Urate [Mass/Vol] 3.3 mg/dL 2.6-6.0 [facility] Comment on above: The drugs N-Acetylcy steine and Metamizole may falsely depress this assay. Sodium levelOrdered By: [facility] on 02-29-2024 Sodium [Moles/Vol] 140 mmol/L 136-145 [facility] Total proteinOrdered By: COUNTS INCLUDE 234 [facility] AT [facility] on 02-29-2024 Protein [Mass/Vol] 7.1 g/dL 6.4-8.2 [facility] Triglycerides measurementOrd ered By: [facility] on 02-29-2024 Triglyceride [Mass/Vol] 112 mg/dL <199 [facility] Comment on above: The drugs N-Acetylcy steine and Metamizole may falsely depress this assay.Serum Triglycerides Reference Interval Normal <150 mg/dL Borderline high 150 - 199 mg/dL High 200 - 499 mg/dL Very High > or = 500 mg/dL Very low density lipoprotein (VLDL) cholesterol measurementOrdered By: [facility] on 02-29-2024 VLDL Cholesterol 22 mg/dL 5-40 [facility] White blood cell (WBC) count Ordered By: Philippe Gonzalez on 02-29-2024 WBC (Bld) [#/Vol] 6.2 10*3/uL 4.4-11.0 [facility] White blood cell (WBC) count Ordered By: [facility] on 02-29-2024 WBC (Bld) [#/Vol] 6.2 10*3/uL 4.4-11.0 [facility] Absolute lymphocyte countOrd ered By: COLLETTE PARKER on 07-03-2023 Lymphocytes Auto (Unsp spec) [#/Vol] 0.91 10*3/uL 0.83-4.51 [facility] Automated lymphocyte count a s percentage of total leukocytesOrdered By: COLLETTE PARKER on 07-03-2023 Lymphocytes/100 WBC Auto (Unsp spec) 17.8 % 19-41 [facility] Basophil percentageOrdered B y: COLLETTE PARKER on 07-03-2023 Basophil percentage 0-5 SEEN /hpf 0-5 [facility] Basophils/100 WBC (Bld) 0.8 % 0-1 [facility] Eosinophils/100 WBC (Bld) 2.2 % 0-5 [facility] Hemoglobin (Bld) [Mass/Vol] 13.0 g/dL 12.0-15.0 [facility] Monocytes/100 WBC (Bld) 16.4 % 0-10 [facility] Neutrophils (Bld) [#/Vol] 3.2 10*3/uL 2.0-7.7 [facility] Neutrophils/100 WBC (Bld) 62.6 % 47-70 [facility] WBC (Bld) [#/Vol] 5.1 10*3/uL 4.4-11.0 [facility] Bilirubin Test strip Ql (U)O rdered By: COLLETTE PARKER on 07-03-2023 Bilirubin Ql (U) Negative Negative [facility] Determination of erythrocyte mean corpuscular volume (MCV)Ordered By: COLLETTE PARKER on 07-03-2023 MCV (RBC) [Entitic vol] 92.7 fL 81-99 [facility] Erythrocyte distribution wid th ratioOrdered By: COLLETTE PARKER on 07-03-2023 Erythrocyte distribution width (RBC) [Ratio] 11.9 % 11.6-14.6 [facility] Erythrocyte distribution wid th standard deviationOrdered By: COLLETTE PARKER on 07-03-2023 Erythrocyte distribution width (RBC) [Entitic vol] 40.8 fL 35.1-43.9 [facility] Erythrocyte sedimentation ra teOrdered By: COLLETTE PARKER on 07-03-2023 ESR (Bld) [Velocity] 2 mm/h 0-30 [facility] Hematocrit Auto (Bld) [Volum e fraction]Ordered By: COLLETTE PARKER on 07-03-2023 Hematocrit (Bld) [Volume fraction] 38.3 % 37-47 [facility] Immature granulocytes/100 WB C Auto (Bld)Ordered By: COLLETTE PARKER on 07-03-2023 Immature granulocytes/100 WBC (Bld) 0.200 % 0.0-0.9 [facility] Comment on above: IG% - Immature Granu locytes (promyelocytes, myelocytes and metamyelocytes) > 1% indicates that a LEFT SHIFT is Present. Ketones Test strip Ql (U)Ord ered By: COLLETTE PARKER on 07-03-2023 Ketones Ql (U) Negative Negative [facility] Laboratory - Chemistry and C hemistry - challengeOrdered By: COLLETTE PARKER on 07-03-2023 ALT [Catalytic activity/Vol] 24 U/L 13-56 [facility] - Hematology and Cell countsOrdered By: COLLETTE PARKER on 07-03-2023 MCH (RBC) [Entitic mass] 31.5 pg 27.0-32.0 [facility] MCHC (RBC) [Mass/Vol] 33.9 g/dL 32-36 [facility] Nucleated RBC/100 WBC (Bld) [Ratio] 0 % 0-5 [facility] Platelet mean volume (Bld) [Entitic vol] 10.2 fL 6.2-12.0 [facility] Platelets (Bld) [#/Vol] 408 10*3/uL 150-450 [facility] Mucus LM Ql (Urine sed)Order ed By: COLLETTE PARKER on 07-03-2023 Mucus Ql (Urine sed) 0 SEEN /hpf [facility] Nitrite Test strip Ql (U)Ord ered By: COLLETTE PARKER on 07-03-2023 Nitrite Ql (U) Negative Negative [facility] No Panel InformationOrdered By: COLLETTE PARKER on 07-03-2023 Urine RBC 0 SEEN /hpf 0-5 [facility] C-Reactive Protein Extended Range < 2.90 mg/L 0.0-3.0 [facility] Comment on above: C-Reactive Protein ( CRP) provides useful information for thediagnosis, therapy and monitoring of inflammatory processesand associated diseases. For the evaluation of Relative Riskfor Cardiovascular Disease, a High Sensitivity CRP (HSCRP)should be ordered. Complement C3 118 mg/dL 82-167 [facility] Comment on above: Performed at: [place] [facility] [address] [id number] Director: Ej Landers PhD, Phone: [phone] Estimated GFR (MDRD) Amer 80 mL/min >60 [facility] Comment on above: GFR Calc Estimated GFR (MDRD) Non-Af Amer 66 mL/min >60 [facility] Comment on above: Non- GFR Calc Protein Test strip Ql (U)Ord ered By: COLLETTE PARKER on 07-03-2023 Protein Ql (U) Negative Negative [facility] RBC Auto (Bld) [#/Vol]Ordere d By: COLLETTE PARKER on 07-03-2023 RBC (Bld) [#/Vol] 4.13 10*6/uL 4.2-5.4 [facility] Serum DNA double strand anti body assay (units/volume)Ordered By: COLLETTE PARKER on 07-03-2023 DNA double strand Ab Qn (S) 4 [IU]/mL 0-9 [facility] Comment on above: Negative <5 Equivoca l 5 - 9 Positive >9Performed at: [place] [facility] [address] [id number] Director: Ej Landers PhD, Phone: [phone] Serum or plasma complement C 4 measurement (mass/volume)Ordered By: COLLETTE PARKER on 07-03-2023 Complement C4 [Mass/Vol] 20 mg/dL 12-38 [facility] Serum or plasma creatinine m easurement (mass/volume)Ordered By: COLLETTE PARKER on 07-03-2023 Creatinine [Mass/Vol] 0.95 mg/dL 0.55-1.02 [facility] Comment on above: The validity of the calculated GFR & GFRAA in patients over 70 years has not been determined. Clinical correlation is essential. Serum or plasma urea nitroge n measurement (mass/volume)Ordered By: COLLETTE PARKER on 07-03-2023 Urea nitrogen [Mass/Vol] 13 mg/dL 7-18 [facility] Squamous epithelial cells de tection in urine sediment by light microscopyOrdered By: COLLETTE PARKER on 07-03-2023 Epithelial cells.squamous LM Ql (Urine sed) 0-5 SEEN /hpf 5-10 [facility] Thin prep Papanicolaou smear with manual screeningOrdered By: COLLETTE PARKER on 07-03-2023 Thin prep Papanicolaou smear with manual screening 14 U/L 15-37 [facility] Urine blood detectionOrdered By: COLLETTE PARKER on 07-03-2023 RBC Ql (U) Negative Negative [facility] Urine clarityOrdered By: KALINA PARKER on 07-03-2023 Clarity (U) Clear Clear [facility] Urine color determinationOrd ered By: COLLETTE PARKER on 07-03-2023 Color (U) Yellow Yellow [facility] Urine glucose detectionOrder ed By: COLLETTE PARKER on 07-03-2023 Glucose Ql (U) Normal mg/dl Normal [facility] Urine leukocyte esterase det ection by dipstickOrdered By: COLLETTE PARKER on 07-03-2023 Leukocyte esterase Test strip Ql (U) 500 /ul Negative [facility] Urine pHOrdered By: COLLETTE ALSTON on 07-03-2023 pH (U) 6.5 [pH] 5.0 - 8.0 [facility] Urine sediment bacteria coun t by microscopy (number/high power field)Ordered By: COLLETTE PARKER on 07-03-2023 Bacteria LM.HPF (Urine sed) [#/Area] 0 /[HPF] None Seen [facility] Urine specific gravity measu rementOrdered By: COLLETTE PARKER on 07-03-2023 Specific gravity (U) [Rel density] 1.010 1.002-1.03 0 [facility] Urine urobilinogen measureme ntOrdered By: COLLETTE PARKER on 07-03-2023 Urobilinogen Ql (U) Normal mg/dl Normal [facility] FT4on 06-22-2023 Free T4 [Mass/Vol] 0.94 ng/dL Normal 0.89-1.76 [facility] ([place]) Comment on above: Result Comment: No te - New Reference Range in effect 19 Performed By: #### T SH, FT4 #### [facility] [address] [place] [address] TSHon 06-22-2023 TSH 1.652 mIU/mL Normal 0.550-4.78 0 [facility] ([place]) Comment on above: Result Comment: No te - New Reference Range in effect 19 Performed By: #### T SH, FT4 #### [facility] [address] [place] [address] Clostridioides difficile nuc leic acid assay by PCROrdered By: Adam Geiger on 06-10-2023 C. difficile DNA CINTHIA+probe Ql (Unsp spec) [facility] No Panel InformationOrdered By: Adam Geiger on 06-10-2023 Giardia Antigen (JESSICA) [facility] Stool Calprotectin 35 ug/g 0-120 [facility] Comment on above: Concentration Interp retation Follow-Up< 5 - 50 ug/g Normal None>50 -120 ug/g Borderline Re-evaluate in 4-6 weeks >120 ug/g Abnormal Repeat as clinically indicatedPerformed at: [facility] [address] [id number] Director: Ej Landers PhD, Phone: [phone] at: [facility] [address] [id number] Director: Lopez Wells MD, Phone: [phone] Stool Neutral Fats Normal . [facility] Comment on above: Normal (<60 Droplets /HPF) Ova and parasitesOrdered By: Adam Geiger on 06-10-2023 Ova and parasites identified LM Nom (Unsp spec) [facility] Qualitative fecal fat or lip idsOrdered By: Adam Geiger on 06-10-2023 Fat Ql (Stl) Increased . [facility] Comment on above: Normal (<100 Droplet s/HPF) Stool enteric pathogen panel by probe and target amplification methodOrdered By: Adam Geiger on 06-10-2023 Gastrointestinal pathogens panel CINTHIA+probe (Stl) [facility] Stool gastrointestinal hemog lobin detection by immunologic methodOrdered By: Adam Geiger on 06-10-2023 Lower GI hemoglobin IA Ql (Stl) [facility] Stool lactoferrin detection by immunoassayOrdered By: Adam Geiger on 06-10-2023 Lactoferrin IA Ql (Stl) [facility] Stool pancreatic elastase me asurement (mass/mass)Ordered By: Adam Geiger on 06-10-2023 Elastase.pancreatic (Stl) [Mass/Mass] 170 >200 [facility] Comment on above: Result Units: ug Gilma st./g Severe Pancreatic Insufficiency: <100 Moderate Pancreatic Insufficiency: 100 - 200 Normal: >200Performed at: [facility] [address] [id number] Director: Lopez Wells MD, Phone: [phone] No Panel InformationOrdered By: Judith Ramos on 04-10-2023 Follicle Stimulating Hormone 8.3 mIU/mL [facility] Comment on above: NORMAL REFERENCE RAN GES FEMALE FOLLICULAR 2.3 - 12.6 mIU/mL MID-CYCLE PEAK 5.2 - 17.5 mIU/mL LUTEAL 1.7 - 12.9 mIU/mL POST-MENOPAUSAL ON MHT 5.9 - 72.8 mIU/mL NOT ON MHT 12.7 - 132.2 mlU/mL MALE 0.7 - 10.8 mIU/mL Serum or plasma estradiol (E 2) measurement (mass/volume)Ordered By: Judith Ramos on 04-10-2023 E2 [Mass/Vol] 225.9 pg/mL [facility] Comment on above: NORMAL REFERENCE RAN [...] Auto (Unsp spec) [#/Vol] 0.90 10*3/uL 0.83-4.51 [facility] Absolute reticulocyte countO rdered By: CHARMAINE NAVAS on 03-06-2023 Reticulocytes (Bld) [#/Vol] 0.00 10*3/uL 0-5 [facility] Basophil percentageOrdered B y: CHARMAINE NAVAS on 03-06-2023 Basophil percentage 3.2 mg/dL 2.5-4.9 [facility] Bilirubin [Mass/Vol] 0.60 mg/dL 0.20-1.00 [facility] Comment on above: For patients on eltr ombopag therapy, use of Dimension Mathews TBIL is not recommended. Chloride [Moles/Vol] 106 mmol/L 98-107 [facility] Cholesterol [Mass/Vol] 159 mg/dL <200 [facility] Comment on above: <200 mg/dL Desirable 200-240 mg/dL Borderline >240 mg/dL High Risk Glucose [Mass/Vol] 86 mg/dL 74-106 [facility] LDH [Catalytic activity/Vol] 187 U/L 84-246 [facility] Neutrophils (Bld) [#/Vol] 3.7 10*3/uL 2.0-7.7 [facility] Potassium [Moles/Vol] 4.1 mmol/L 3.5-5.1 [facility] Protein [Mass/Vol] 7.5 g/dL 6.4-8.2 [facility] Sodium [Moles/Vol] 137 mmol/L 136-145 [facility] Triglyceride [Mass/Vol] 42 mg/dL <199 [facility] Comment on above: The drugs N-Acetylcy steine and Metamizole may falsely depress this assay.Serum Triglycerides Reference Interval Normal <150 mg/dL Borderline high 150 - 199 mg/dL High 200 - 499 mg/dL Very High > or = 500 mg/dL WBC (Bld) [#/Vol] 5.7 10*3/uL 4.4-11.0 [facility] Bilirubin Test strip Ql (U)O rdered By: CHARMAINE NAVAS on 03-06-2023 Bilirubin Ql (U) Negative Negative [facility] Blood erythrocytes count (nu mber/volume)Ordered By: CHARMAINE NAVAS on 03-06-2023 RBC (Bld) [#/Vol] 4.32 10*6/uL 4.2-5.4 [facility] Blood hemoglobin measurement (mass/volume)Ordered By: CHARMAINE NAVAS on 03-06-2023 Hemoglobin (Bld) [Mass/Vol] 13.5 g/dL 12.0-15.0 [facility] Blood platelet mean volumeOr dered By: CHARMAINE NAVAS on 03-06-2023 Platelet mean volume (Bld) [Entitic vol] 9.7 fL 6.2-12.0 [facility] Determination of erythrocyte mean corpuscular volume (MCV)Ordered By: CHARMAINE NAVAS on 03-06-2023 MCV (RBC) [Entitic vol] 93.5 fL 81-99 [facility] Direct bilirubinOrdered By: CHARMAINE NAVAS on 03-06-2023 Bilirubin.direct [Mass/Vol] 0.16 mg/dL 0.00-0.30 [facility] Hematocrit Auto (Bld) [Volum e fraction]Ordered By: CHARMAINE NAVAS on 03-06-2023 Hematocrit (Bld) [Volume fraction] 40.4 % 37-47 [facility] Ketones Test strip Ql (U)Ord ered By: CHARMAINE NAVAS on 03-06-2023 Ketones Ql (U) Negative Negative [facility] Laboratory - Chemistry and C hemistry - challengeOrdered By: CHARMAINE NAVAS on 03-06-2023 ALP [Catalytic activity/Vol] 72 U/L 45-117 [facility] ALT [Catalytic activity/Vol] 23 U/L 13-56 [facility] Cholesterol.total/Choles terol in HDL [Mass ratio] 2.10 {ratio} [facility] CO2 [Moles/Vol] 30.0 mmol/L 21.0-32.0 [facility] Globulin (S) [Mass/Vol] 3.6 g/dL 2.2-4.2 [facility] Urea nitrogen/Creatinine [Mass ratio] 16.7 mg/mg 10-20 [facility] - Hematology and Cell countsOrdered By: CHARMAINE NAVAS on 03-06-2023 Erythrocyte distribution width (RBC) [Entitic vol] 40.1 fL 35.1-43.9 [facility] Erythrocyte distribution width (RBC) [Ratio] 11.7 % 11.6-14.6 [facility] MCH (RBC) [Entitic mass] 31.3 pg 27.0-32.0 [facility] Nucleated RBC/100 WBC (Bld) [Ratio] 0 % 0-5 [facility] MCHC Auto (RBC) [Mass/Vol]Or dered By: CHARMAINE NAVAS on 03-06-2023 MCHC (RBC) [Mass/Vol] 33.4 g/dL 32-36 [facility] Nitrite Test strip Ql (U)Ord ered By: CHARMAINE NAVAS on 03-06-2023 Nitrite Ql (U) Negative Negative [facility] No Panel InformationOrdered By: CHARMAINE NAVAS on 03-06-2023 Estimated GFR (MDRD) Amer 86 mL/min >60 [facility] Comment on above: GFR Calc Estimated GFR (MDRD) Non-Af Amer 71 mL/min >60 [facility] Comment on above: Non- GFR Calc Platelets bldOrdered By: ISAMAR NAVAS on 03-06-2023 Platelets (Bld) [#/Vol] 380 10*3/uL 150-450 [facility] Protein Test strip Ql (U)Ord ered By: CHARMAINE NAVAS on 03-06-2023 Protein Ql (U) Negative Negative [facility] Segmented neutrophils/100 WB C Auto (Bld)Ordered By: CHARMAINE NAVAS on 03-06-2023 Segmented neutrophils/100 WBC (Bld) 64.5 % 47-70 [facility] Serum or plasma albumin gem urement (mass/volume)Ordered By: CHARMAINE NAVAS on 03-06-2023 Albumin [Mass/Vol] 3.9 g/dL 3.2-5.0 [facility] Serum or plasma albumin/glob ulin mass ratioOrdered By: CHARMAINE NAVAS on 03-06-2023 Albumin/Globulin [Mass ratio] 1.1 {ratio} 0.9-2.4 [facility] Serum or plasma calcium gem urement (mass/volume)Ordered By: CHARMAINE NAVAS on 03-06-2023 Calcium [Mass/Vol] 8.8 mg/dL 8.5-10.1 [facility] Serum or plasma cholesterol in HDL measurement (mass/volume)Ordered By: CHARMAINE NAVAS on 03-06-2023 Cholesterol in HDL [Mass/Vol] 74 mg/dL >40 [facility] Comment on above: The drugs N-Acetylcy steine and Metamizole may falsely depress this assay. Reference Range HDL <40 mg/dL Low HDL Cholesterol HDL >or= 60 mg/dL High HDL Cholesterol Serum or plasma cholesterol in VLDL measurement (mass/volume)Ordered By: CHARMAINE NAVAS on 03-06-2023 Cholesterol in VLDL [Mass/Vol] 8 mg/dL 5-40 [facility] Serum or plasma creatinine m easurement (mass/volume)Ordered By: CHARMAINE NAVAS on 03-06-2023 Creatinine [Mass/Vol] 0.90 mg/dL 0.55-1.02 [facility] Comment on above: The validity of the calculated GFR & GFRAA in patients over 70 years has not been determined. Clinical correlation is essential. Serum or plasma low density lipoprotein (LDL) cholesterol measurement (mass/volume)Ordered By: CHARMAINE NAVAS on 03-06-2023 Cholesterol in LDL [Mass/Vol] 77 mg/dL 0-130 [facility] Serum or plasma urea nitroge n measurement (mass/volume)Ordered By: CHARMAINE NAVAS on 03-06-2023 Urea nitrogen [Mass/Vol] 15 mg/dL 7-18 [facility] Serum or plasma uric acid me asurement (mass/volume)Ordered By: CHARMAINE NAVAS on 03-06-2023 Urate [Mass/Vol] 3.0 mg/dL 2.6-6.0 [facility] Comment on above: The drugs N-Acetylcy steine and Metamizole may falsely depress this assay. Thin prep Papanicolaou smear with manual screeningOrdered By: CHARMAINE NAVAS on 03-06-2023 Thin prep Papanicolaou smear with manual screening 22 U/L 15-37 [facility] Thin prep Papanicolaou smear with manual screening 1 5-15 [facility] Urine blood detectionOrdered By: CHARMAINE NAVAS on 03-06-2023 RBC Ql (U) Negative Negative [facility] Urine clarityOrdered By: ISAMAR NAVAS on 03-06-2023 Clarity (U) Clear Clear [facility] Urine color determinationOrd ered By: CHARMAINE NAVAS on 03-06-2023 Color (U) Yellow Yellow [facility] Urine glucose detectionOrder ed By: CHARMAINE NAVAS on 03-06-2023 Glucose Ql (U) Normal mg/dl Normal [facility] Urine leukocyte esterase det ection by dipstickOrdered By: CHARMAINE NAVAS on 03-06-2023 Leukocyte esterase Test strip Ql (U) Negative Negative [facility] Urine pHOrdered By: CHARMAINE CHEN on 03-06-2023 pH (U) 6.5 [pH] 5.0 - 8.0 [facility] Urine specific gravity measu rementOrdered By: CHARMAINE NAVAS on 03-06-2023 Specific gravity (U) [Rel density] 1.015 1.002-1.03 0 [facility] Urobilinogen Auto test strip Ql (U)Ordered By: CHARMAINE NAVAS on 03-06-2023 Urobilinogen Ql (U) Normal mg/dl Normal [facility] No Panel InformationOrdered By: Dr. Guzman on 08-05-2022 Anti-Cardiolipin IgM Antibody Not Reportable [facility] Serum [id number] m easurement (mass/volume)Ordered By: Martha Guzman on 08-05-2022 [id number] [Mass/Vol] See comment [facility] Comment on above: TEST RESULTS LIMITSB eta-2 Microglobulin, Serum 1.6 mg/L 0.6-2.4Siemens Hingiulite 2000 Immunochemiluminometric assay (ICMA)Values obtained with different assay methods or kits cannot be used interchangeably. Results cannot be interpreted as absolute evidence of the presence or absence of malignant disease. TESTING PERFORMED AT [facility]. ORIGINAL REPORT ON FILE IN LAB CONTAINS ADDITIONAL TEST SITE INFORMATION. Serum cardiolipin IgG antibo dy assay by immunoassay (units/volume)Ordered By: Dr. Guzman on 08-05-2022 Cardiolipin IgG IA Qn (S) See comment [facility] Comment on above: TEST RESULTS LIMITSA nticardiolipin Ab, IgG/M, QnAnticardiolipin Ab,IgG,Qn <9 GPL U/mL 0-14 Negative: <15 Indeterminate: 15 - 20 Low-Med Positive: >20 - 80 High Positive: >80Anticardiolipin Ab,IgM,Qn <9 MPL U/mL 0-12 Negative: <13 Indeterminate: 13 - 20 Low-Med Positive: >20 - 80 High Positive: >80 TESTING PERFORMED AT [facility]. ORIGINAL REPORT ON FILE IN LAB CONTAINS ADDITIONAL TEST SITE INFORMATION. Basophil percentageOrdered B y: Dr. Guzman on 08-01-2022 Basophil percentage See comment [facility] Comment on above: TEST RESULTS LIMITSS jogren's Ab, Anti-SS-A/-SS-BSjogren's Anti-SS-A 4.1 High AI 0.0-0.9Sjogren's Anti-SS-B <0.2 AI 0.0-0.9 TESTING PERFORMED AT [facility]. ORIGINAL REPORT ON FILE IN LAB CONTAINS ADDITIONAL TEST SITE INFORMATION. Basophil percentage Not Reportable [facility] Bilirubin Test strip Ql (U)O rdered By: Dr. Guzman on 08-01-2022 Bilirubin Ql (U) Negative Negative [facility] Dilute Marcos's viper venom timeOrdered By: Dr. Guzman on 08-01-2022 dRVVT Coag (PPP) [Time] 34.4 s 0.0-47.0 [facility] Ketones Test strip Ql (U)Ord ered By: Dr. Guzman on 08-01-2022 Ketones Ql (U) Negative Negative [facility] Nitrite Test strip Ql (U)Ord ered By: Dr. Guzman on 08-01-2022 Nitrite Ql (U) Negative Negative [facility] No Panel InformationOrdered By: Dr. Guzman on 08-01-2022 Miscellaneous Test See comment [facility] Comment on above: TEST RESULTS LIMITSd sDNA Crithidia luciliae IFAdsDNA Crithidia luciliae IFA Negative Negative TESTING PERFORMED AT [facility]. ORIGINAL REPORT ON FILE IN LAB CONTAINS ADDITIONAL TEST SITE INFORMATION. TEST RESULTS LIMITSA nti-CCP Ab, IgG + IgA (RDL)Anti-CCP Ab, IgG + IgA (RDL) A, <20 Units <20 Negative: <20 Weak Positive: 20 - 39 Moderate Positive: 40 - 59 Strong Positive: >59CommentsA: This test was developed and its performance characteristics determined by [facility]. It has not been cleared or approved by the Food and DrugAdministration. TESTING PERFORMED AT [facility]. ORIGINAL REPORT ON FILE IN LAB CONTAINS ADDITIONAL TEST SITE INFORMATION. V/[employer] Antibody See comment [facility] Comment on above: TEST RESULTS LIMITSA ntiextractable Nuclear AgRNP Antibodies 0.2 AI 0.0-0.9Smith Antibodies <0.2 AI 0.0-0.9 TESTING PERFORMED AT [facility]. ORIGINAL REPORT ON FILE IN LAB CONTAINS ADDITIONAL TEST SITE INFORMATION. Protein Test strip Ql (U)Ord ered By: Dr. Guzman on 08-01-2022 Protein Ql (U) Negative Negative [facility] Serum DNA double strand anti body assay (units/volume)Ordered By: Dr. Guzman on 08-01-2022 DNA double strand Ab Qn (S) See comment [facility] Comment on above: TEST RESULTS LIMITSA nti-DNA (DS) Ab Qn 3 IU/mL 0-9 Negative <5 Equivocal 5 - 9 Positive >9 TESTING PERFORMED AT [facility]. ORIGINAL REPORT ON FILE IN LAB CONTAINS ADDITIONAL TEST SITE INFORMATION. Serum Scl-70 extractable nuc lear antibody assay (units/volume)Ordered By: Dr. Guzman on 08-01-2022 SCL-70 extractable nuclear Ab Qn (S) See comment [facility] Comment on above: TEST RESULTS LIMITSA ntiscleroderma-70Antibodies <0.2 AI 0.0-0.9 TESTING PERFORMED AT [facility]. ORIGINAL REPORT ON FILE IN LAB CONTAINS ADDITIONAL TEST SITE INFORMATION. Serum Le extractable nucl ear antibody detectionOrdered By: Dr. Guzman on 08-01-2022 Le extractable nuclear Ab Ql (S) Not Reportable [facility] Serum nuclear antibody titer by immunofluorescenceOrdered By: Dr. Guzman on 08-01-2022 Nuclear Ab IF (S) [Titer] See comment [facility] Comment on above: TEST RESULTS LIMITS [...] High titers - SLE (Smooth) Histone Speckled Sm,V/[employer]ER,SCL-70, SLE,MCTD, Scleroderma, SS-A/SS-B Sjogrens Nucleolar SCL-70,PM-1/SCL High titers Scleroderma Polymyositis/scleroderma over- lap Centromere Centromere PSS w/Crest syndrome variable Nuclear SP100 Primary Biliary CirrhosisDot [id number] Nuclear GP210, Primary Biliary CirrhosisMembrane TESTING PERFORMED AT [facility]. ORIGINAL REPORT ON FILE IN LAB CONTAINS ADDITIONAL TEST SITE INFORMATION. Serum or plasma complement C 3 measurement (mass/volume)Ordered By: Dr. Guzman on 08-01-2022 Complement C3 [Mass/Vol] 110 mg/dL 82-167 [facility] Serum or plasma complement C 4 measurement (mass/volume)Ordered By: Dr. Guzman on 08-01-2022 Complement C4 [Mass/Vol] 21 mg/dL 12-38 [facility] Serum or plasma thyroperoxid ase antibody assay (units/volume)Ordered By: Dr. Guzman on 08-01-2022 TPO Ab Qn [IU]/mL 0-34 [facility] Comment on above: Performed at: [address] Director: Ej Landers PhD, Phone: [phone] Serum rheumatoid factor dete ctionOrdered By: Dr. Guzman on 08-01-2022 Rheumatoid factor Ql (S) < 10.0 IU/mL <15 [facility] Thin prep Papanicolaou smear with manual screeningOrdered By: Dr. Guzman on 08-01-2022 Thin prep Papanicolaou smear with manual screening 36.1 sec 0.0-47.6 [facility] Thin prep Papanicolaou smear with manual screening 1.08 Ratio 0.00-1.34 [facility] Thin prep Papanicolaou smear with manual screening 37.6 sec 0.0-43.5 [facility] Thin prep Papanicolaou smear with manual screening Comment: . [facility] Comment on above: No lupus anticoagula nt was detected. Thrombin time in platelet po or plasmaOrdered By: Dr. Guzman on 08-01-2022 Thrombin time Coag (PPP) [Time] 18.4 sec 0.0-23.0 [facility] Urine blood detectionOrdered By: Dr. Guzman on 08-01-2022 RBC Ql (U) Negative Negative [facility] Urine clarityOrdered By: Dr. Guzman on 08-01-2022 Clarity (U) Clear Clear [facility] Urine color determinationOrd ered By: Dr. Guzman on 08-01-2022 Color (U) Yellow Yellow [facility] Urine glucose detectionOrder ed By: Dr. Guzman on 08-01-2022 Glucose Ql (U) Normal mg/dl Normal [facility] Urine leukocyte esterase det ection by dipstickOrdered By: Dr. Guzman on 08-01-2022 Leukocyte esterase Test strip Ql (U) 25 /ul Negative [facility] Urine pHOrdered By: Dr. Giacomo hoffman on 08-01-2022 pH (U) 5.0 [pH] 5.0 - 8.0 [facility] Urine specific gravity measu rementOrdered By: Dr. Guzman on 08-01-2022 Specific gravity (U) [Rel density] 1.020 1.002-1.03 0 [facility] Urobilinogen Auto test strip Ql (U)Ordered By: Dr. Guzman on 08-01-2022 Urobilinogen Ql (U) Normal mg/dl Normal [facility] No Panel InformationOrdered By: Cris Shafer on 07-29-2022 Stool Calprotectin 60 ug/g 0-120 [facility] Comment on above: Concentration Interp retation Follow-Up<16 - 50 ug/g Normal None>50 -120 ug/g Borderline Re-evaluate in 4-6 weeks >120 ug/g Abnormal Repeat as clinically indicatedPerformed at: - [facility] [id number] Director: Lopez Wells MD, Phone: [phone] Stool lactoferrin detection by immunoassayOrdered By: Cris Shafer on 07-29-2022 Lactoferrin IA Ql (Stl) [facility] Lactoferrin IA Ql (Stl) [facility] Absolute lymphocyte countOrd ered By: Cris Shafer on 07-27-2022 Lymphocytes Auto (Unsp spec) [#/Vol] 0.82 10*3/uL 0.83-4.51 [facility] Basophil percentageOrdered B y: Cris Shafer on 07-27-2022 Basophils/100 WBC (Bld) 0.6 % 0-1 [facility] Bilirubin [Mass/Vol] 1.00 mg/dL 0.20-1.00 [facility] Comment on above: For patients on eltr ombopag therapy, use of Dimension Mathews TBIL is not recommended. Chloride [Moles/Vol] 107 mmol/L 98-107 [facility] Eosinophils/100 WBC (Bld) 0.8 % 0-5 [facility] Glucose [Mass/Vol] 73 mg/dL 74-106 [facility] Neutrophils (Bld) [#/Vol] 3.6 10*3/uL 2.0-7.7 [facility] Neutrophils/100 WBC (Bld) 71.1 % 47-70 [facility] Potassium [Moles/Vol] 3.8 mmol/L 3.5-5.1 [facility] Protein [Mass/Vol] 7.6 g/dL 6.4-8.2 [facility] Sodium [Moles/Vol] 138 mmol/L 136-145 [facility] WBC (Bld) [#/Vol] 5.1 10*3/uL 4.4-11.0 [facility] Blood erythrocytes count (nu mber/volume)Ordered By: Cris Shafer on 07-27-2022 RBC (Bld) [#/Vol] 4.39 10*6/uL 4.2-5.4 [facility] Blood hemoglobin measurement (mass/volume)Ordered By: Cris Shafer on 07-27-2022 Hemoglobin (Bld) [Mass/Vol] 14.0 g/dL 12.0-15.0 [facility] Blood lymphocytes/100 leukoc ytesOrdered By: Cris Shafer on 07-27-2022 Lymphocytes/100 WBC (Bld) 16.1 % 19-41 [facility] Blood monocytes/100 leukocyt esOrdered By: Cris Shafer on 07-27-2022 Monocytes/100 WBC (Bld) 11.2 % 0-10 [facility] Blood platelet mean volumeOr dered By: Cris Shafer on 07-27-2022 Platelet mean volume (Bld) [Entitic vol] 10.2 fL 6.2-12.0 [facility] Determination of erythrocyte mean corpuscular volume (MCV)Ordered By: Cris Shafer on 07-27-2022 MCV (RBC) [Entitic vol] 93.6 fL 81-99 [facility] Erythrocyte sedimentation ra teOrdered By: Cris Shafer on 07-27-2022 ESR (Bld) [Velocity] 4 mm/h 0-30 [facility] Hematocrit Auto (Bld) [Volum e fraction]Ordered By: Cris Shafer on 07-27-2022 Hematocrit (Bld) [Volume fraction] 41.1 % 37-47 [facility] Laboratory - Chemistry and C hemistry - challengeOrdered By: Cris Shafer on 07-27-2022 ALP [Catalytic activity/Vol] 79 U/L 45-117 [facility] ALT [Catalytic activity/Vol] 25 U/L 13-56 [facility] CO2 [Moles/Vol] 25.0 mmol/L 21.0-32.0 [facility] Globulin (S) [Mass/Vol] 3.6 g/dL 2.2-4.2 [facility] Urea nitrogen/Creatinine [Mass ratio] 22.5 mg/mg 10-20 [facility] Laboratory - Hematology and Cell countsOrdered By: Cris Shafer on 07-27-2022 Erythrocyte distribution width (RBC) [Entitic vol] 40.4 fL 35.1-43.9 [facility] Erythrocyte distribution width (RBC) [Ratio] 11.8 % 11.6-14.6 [facility] Immature granulocytes/100 WBC (Bld) 0.200 % 0.0-0.9 [facility] Comment on above: IG% - Immature Granu locytes (promyelocytes, myelocytes and metamyelocytes) > 1% indicates that a LEFT SHIFT is Present. MCH (RBC) [Entitic mass] 31.9 pg 27.0-32.0 [facility] Nucleated RBC/100 WBC (Bld) [Ratio] 0 % 0-5 [facility] MCHC Auto (RBC) [Mass/Vol]Or dered By: Cris Shafer on 07-27-2022 MCHC (RBC) [Mass/Vol] 34.1 g/dL 32-36 [facility] No Panel InformationOrdered By: Cris Shafer on 07-27-2022 Endomysial IgA Antibody Negative Negative [facility] Estimated GFR (MDRD) Amer 82 mL/min >60 [facility] Comment on above: GFR Calc Estimated GFR (MDRD) Non-Af Amer 68 mL/min >60 [facility] Comment on above: Non- GFR Calc Immunoglobulin E 18 IU/mL 6-495 [facility] Comment on above: Performed at: - [employer] [address] [id number] Director: Ej Landers PhD, Phone: [phone] at: [address] [id number] Director: Lopez Wells MD, Phone: [phone] Miscellaneous Test See comment [facility] Comment on above: TEST RESULT LIMITSIB [...] developed and its performance characteristics determined by [facility]. It has not been cleared or [...] 07-27-2022 Platelets (Bld) [#/Vol] 340 10*3/uL 150-450 [facility] Serum or plasma C reactive p rotein measurement (mass/volume)Ordered By: Cris Shafer on 07-27-2022 CRP [Mass/Vol] mg/L 0.0-3.0 [facility] Comment on above: C-Reactive Protein ( CRP) provides useful information for thediagnosis, therapy and monitoring of inflammatory processesand associated diseases. For the evaluation of Relative Riskfor Cardiovascular Disease, a High Sensitivity CRP (HSCRP)should be ordered. Serum or plasma IgA measurem ent (mass/volume)Ordered By: Cris Shafer on 07-27-2022 IgA [Mass/Vol] 216 mg/dL 87-352 [facility] Serum or plasma IgG measurem ent (mass/volume)Ordered By: Cris Shafer on 07-27-2022 IgG [Mass/Vol] 1311 mg/dL 586-1602 [facility] Serum or plasma IgM measurem ent (mass/volume)Ordered By: Cris Shafer on 07-27-2022 IgM [Mass/Vol] 87 mg/dL 26-217 [facility] Serum or plasma albumin gem urement (mass/volume)Ordered By: Cris Shafer on 07-27-2022 Albumin [Mass/Vol] 4.0 g/dL 3.2-5.0 [facility] Serum or plasma albumin/glob ulin mass ratioOrdered By: Cris Shafer on 07-27-2022 Albumin/Globulin [Mass ratio] 1.1 {ratio} 0.9-2.4 [facility] Serum or plasma calcium gem urement (mass/volume)Ordered By: Cris Shafer on 07-27-2022 Calcium [Mass/Vol] 9.2 mg/dL 8.5-10.1 [facility] Serum or plasma creatinine m easurement (mass/volume)Ordered By: Cris Shafer on 07-27-2022 Creatinine [Mass/Vol] 0.93 mg/dL 0.55-1.02 [facility] Comment on above: The validity of the calculated GFR & GFRAA in patients over 70 years has not been determined. Clinical correlation is essential. Serum or plasma urea nitroge n measurement (mass/volume)Ordered By: Cris Shafer on 07-27-2022 Urea nitrogen [Mass/Vol] 21 mg/dL 7-18 [facility] Serum tissue transglutaminas e IgA antibody assay (units/volume)Ordered By: Cris Shafer on 07-27-2022 tTG IgA Qn (S) <2 U/mL 0-3 [facility] Comment on above: Negative 0 - 3 Weak Positive 4 - 10 Positive >10 Tissue Transglutaminase (tTG) has been identified as the endomysial antigen. Studies have demonstr- ated that endomysial IgA antibodies have over 99% specificity for gluten sensitive enteropathy. Thin prep Papanicolaou smear with manual screeningOrdered By: Cris Shafer on 07-27-2022 Thin prep Papanicolaou smear with manual screening 17 U/L 15-37 [facility] Thin prep Papanicolaou smear with manual screening 6 5-15 [facility] Cervical or vagninal specime n microscopic examination by cytology stain (reported asOrdered By: Dr. Sandoval on 07-16-2022 Cytology report Cyto stain Doc (Cvx/Vag) Comment . [facility] Comment on above: The Pap smear [...] DNA Probe+sig amp Ql (Cvx) Negative Negative [facility] Comment on above: This nucleic acid am plification test detects fourteen high-risk HPV types (16,18,31,33,35,39,45,51,52,56,58,59,66,68)without differentiation. Laboratory - CytologyOrdered By: Dr. Sandoval on 07-16-2022 Art Historian Cyto stain Nom (Cvx/Vag) [ID] Comment . [facility] Comment on above: Akosua [place], Cytot echnologist (ASCP) Laboratory - Miscellaneous t estsOrdered By: Dr. Sandoval on 07-16-2022 Service comment (Unsp spec) [Interp] Comment . [facility] Comment on above: This liquid based Th inPrep(R) pap test was screened withthe use of an image guided system. Service comment (Unsp spec) [Interp] . . [facility] Liquid-based cerv Pap + CT/G C by CINTHIA w reflex to high-risk HPV for ASCUSOrdered By: Dr. Sandoval on 07-16-2022 Cytology report Cyto stain.thin prep Doc (Cvx/Vag) Comment . [facility] Comment on above: Criteria not met, HP V Genotype not performed.Performed at: - [facility] [id number] Director: Lexii Rojas MD, Phone: [phone] at: = - [facility] [id number] Director: Lexii Rojas MD, Phone: [phone] No Panel InformationOrdered By: Dr. Sandoval on 07-16-2022 Pathology report final diagnosis Narrative Comment . [facility] Comment on above: NEGATIVE FOR INTRAEP ITHELIAL LESION OR MALIGNANCY. No Panel InformationOrdered By: Dr. Sandoval on 07-10-2022 Follicle Stimulating Hormone 31.7 mIU/mL [facility] Comment on above: NORMAL REFERENCE RAN GES FEMALE FOLLICULAR 2.3 - 12.6 mIU/mL MID-CYCLE PEAK 5.2 - 17.5 mIU/mL LUTEAL 1.7 - 12.9 mIU/mL POST-MENOPAUSAL ON MHT 5.9 - 72.8 mIU/mL NOT ON MHT 12.7 - 132.2 mlU/mL MALE 0.7 - 10.8 mIU/mL Luteinizing Hormone 30.7 mIU/mL [facility] Comment on above: NORMAL REFERENCE RAN GES FEMALE FOLLICULAR 1.9 - 26.2 mIU/mL MID-CYCLE PEAK 22.8 - 76.1 mIU/mL LUTEAL 0.6 - 16.6 mIU/mL POST-MENOPAUSAL ON MHT 1.1 - 52.4 mIU/mL NOT ON MHT 8.6 - 61.8 mIU/mL MALE 1.2 - 10.6 mIU/mL Serum or plasma estradiol (E 2) measurement (mass/volume)Ordered By: Dr. Sandoval on 07-10-2022 E2 [Mass/Vol] 113.2 pg/mL [facility] Comment on above: NORMAL REFERENCE RAN [...] 07-10-2022 Progesterone [Mass/Vol] 0.63 ng/mL See Comment [facility] Comment on above: Progesterone Referen ce Table: UNITS Female: Follicular 0.15 - 1.40 ng/mL Luteal 3.34 - 25.56 ng/mL Mid-luteal 4.44 - 28.03 ng/mL Postmenopausal 0.0 - 0.73 ng/mL : 1st Trimester 11.22 - 90.00 ng/mL 2nd Trimester 25.55 - 89.40 ng/mL 3rd Trimester 48.40 -422.50 ng/mL Chen 08-22-2021 JIHAN Telephone ([employer]) ----- PRAFUL KAHN ([id number]) 1975 F Date Time Provider Department 08/22/21 DEMETRIO HANCOCK During your visit today, we recorded the following information about you: Tristan Araujo RN 08/22/2021 9:[address] Hancock is requesting Praful is scheduled for a breast MRI at [facility]. Faxed order to [facility] and left voicemail for Praful giving her the phone number to call and schedule the MRI or if she would like us to schedule to please let us know. CHERYL Knight RN 09/09/2021 9:23 AM Signed Checked [facility], for breast MRI results and it does not look like Praful ever scheduled her appointment. Left voicemail ([phone]) for Praful to please let us know if she ever scheduled the exam. CHERYL Knight RN 09/09/2021 1:02 PM Signed Praful called back. She advised that she was waiting on approval from her insurance company, before [facility] would let her schedule the MRI. She states that she has been on vacation in [place], where she did not have cell service and should be home today. She will check with the hospital tomorrow. CHERYL Knight RN 09/10/2021 2:56 PM Signed Good Afternoon, You entered a referral for to have a MRI at [facility]. I need some additional information to complete the authorization- is the MRI Unilateral or Bilateral, and is it WO, W, or WWO Contrast? Thank you, Kellie Hopkins, Per Dr. Hancock, it is bilateral breast with contrast. CHERYL Knight RN 09/15/2021 8:24 AM Signed Approval for MRI of bilateral breast with contrast from [facility] [place]. Left voicemail for patient that approval has been received, so she may schedule the exam. Faxed order and approval to [facility] scheduling department. Fax confirmation sheet received. Tristan Araujo RN Allergies As of Date: 08/22/2021 Noted Allergy Reaction MORPHINE 05/20/2008 4 - Hives Date Reviewed: 06/24/2021 Reviewed by: Estephania Carvalho LPN - Fully Assessed Reason for Visit: Appointment [186] Cmt: Schedule MRI of breast at [facility] Prescriptions as of 09/15/2021 - ocrelizumab (OCREVUS [...] Encounter Status:Closed by TRISTAN ARAUJO on 08/29/21 [facility] 08-01-2021 [facility] Telephone (GABRIELLE) ----- PRAFUL KAHN ([id number]) 1975 F Date Time Provider Department 08/01/21 [...] Encounter Status:Closed by MARIAM MURCIA on 09/12/21 [facility] CNOVon 06-24-2021 CN Office Visit (GABRIELLE ) ----- PRAFUL KAHN ([id number]) 1975 F Date Time Provider Department 06/24/21 [...] - c (more content not included)... Normal [place] Absolute lymphocyte counton 06-13-2021 Lymphocytes Auto (Unsp spec) [#/Vol] 0.81 10*3/uL 0.83-4.51 [facility] Work Phone: Basophil percentageon 2021 Basophil percentage 0 SEEN /hpf 0-5 [facility] Work Phone: Basophil percentage 5.5 AI 0.0-0.9 [facility] Work Phone: Basophil percentage < 0.2 AI 0.0-0.9 [facility] Work Phone: Basophils/100 WBC (Bld) 0.8 % 0-1 [facility] Work Phone: Eosinophils/100 WBC (Bld) 0.8 % 0-5 [facility] Work Phone: Neutrophils (Bld) [#/Vol] 3.2 10*3/uL 2.0-7.7 [facility] Work Phone: Neutrophils/100 WBC (Bld) 66.4 % 47-70 [facility] Work Phone: WBC (Bld) [#/Vol] 4.8 10*3/uL 4.4-11.0 [facility] Work Phone: Bilirubin Test strip Ql (U)o n 06-13-2021 Bilirubin Ql (U) Negative Negative [facility] Work Phone: Blood erythrocytes count (nu mber/volume)on 06-13-2021 RBC (Bld) [#/Vol] 4.17 10*6/uL 4.2-5.4 [facility] Work Phone: Blood hemoglobin measurement (mass/volume)on 06-13-2021 Hemoglobin (Bld) [Mass/Vol] 13.7 g/dL 12.0-15.0 [facility] Work Phone: Blood lymphocytes/100 leukoc yteson 06-13-2021 Lymphocytes/100 WBC (Bld) 16.8 % 19-41 [facility] Work Phone: Blood monocytes/100 leukocyt eson 06-13-2021 Monocytes/100 WBC (Bld) 14.8 % 0-10 [facility] Work Phone: Blood platelet mean volumeon 06-13-2021 Platelet mean volume (Bld) [Entitic vol] 10.1 fL 6.2-12.0 [facility] Work Phone: Determination of erythrocyte mean corpuscular volume (MCV)on 06-13-2021 MCV (RBC) [Entitic vol] 92.6 fL 81-99 [facility] Work Phone: Hematocrit Auto (Bld) [Volum e fraction]on 06-13-2021 Hematocrit (Bld) [Volume fraction] 38.6 % 37-47 [facility] Work Phone: Ketones Test strip Ql (U)on 06-13-2021 Ketones Ql (U) Negative Negative [facility] Work Phone: Laboratory - Chemistry and C hemistry - challengeon 06-13-2021 ALT [Catalytic activity/Vol] 25 U/L 13-56 [facility] Work Phone: Laboratory - Hematology and Cell countson 06-13-2021 Erythrocyte distribution width (RBC) [Entitic vol] 41.3 fL 35.1-43.9 [facility] Work Phone: Erythrocyte distribution width (RBC) [Ratio] 12.2 % 11.6-14.6 [facility] Work Phone: Immature granulocytes/100 WBC (Bld) 0.400 % 0.0-0.9 [facility] Work Phone: Comment on above: IG% - Immature Granu locytes (promyelocytes, myelocytes and metamyelocytes) > 1% indicates that a LEFT SHIFT is Present. MCH (RBC) [Entitic mass] 32.9 pg 27.0-32.0 [facility] Work Phone: Nucleated RBC/100 WBC (Bld) [Ratio] 0 % 0-5 [facility] Work Phone: MCHC Auto (RBC) [Mass/Vol]on 06-13-2021 MCHC (RBC) [Mass/Vol] 35.5 g/dL 32-36 [facility] Work Phone: Mucus LM Ql (Urine sed)on Mucus Ql (Urine sed) 0 SEEN /hpf [facility] Work Phone: Nitrite Test strip Ql (U)on 06-13-2021 Nitrite Ql (U) Negative Negative [facility] Work Phone: No Panel Informationon 06-13 Anti-Nuclear Antibody Screen Positive Negative [facility] Work Phone: Comment on above: Performed at: [address] [id number] Director: Ej Landers PhD, Phone: [phone] Estimated GFR (MDRD) Amer 87 mL/min >60 [facility] Work Phone: Comment on above: GFR Calc Estimated GFR (MDRD) Non-Af Amer 72 mL/min >60 [facility] Work Phone: Comment on above: Non- GFR Calc Miscellaneous Test See comment [facility] Work Phone: Comment on above: TEST RESULT [...] was developed and its performance characteristicsdetermined by [employer]. It has not been cleared orapproved by the [place] Food and Drug Administration. This test was performed in a CLIA certified laboratory and is intended for clinical purposes. TESTING PERFORMED AT [facility]. ORIGINAL REPORT ON FILE IN LAB CONTAINS ADDITIONAL TEST SITE INFORMATION. V/STOL [employer] SIGNAL OFFICER Antibody 0.2 AI 0.0-0.9 [facility] Work Phone: Platelets bldon 06-13-2021 Platelets (Bld) [#/Vol] 330 10*3/uL 150-450 [facility] Work Phone: Protein Test strip Ql (U)on 06-13-2021 Protein Ql (U) Negative Negative [facility] Work Phone: Serum DNA double strand anti body assay (units/volume)on 06-13-2021 DNA double strand Ab Qn (S) 3 [IU]/mL 0-9 [facility] Work Phone: Comment on above: Negative <5 Equivoca l 5 - 9 Positive >9 Serum Scl-70 extractable nuc lear antibody assay (units/volume)on 06-13-2021 SCL-70 extractable nuclear Ab Qn (S) <0.2 AI 0.0-0.9 [facility] Work Phone: Serum Le extractable nucl ear antibody detectionon 06-13-2021 Le extractable nuclear Ab Ql (S) <0.2 AI 0.0-0.9 [facility] Work Phone: Serum cyclic citrullinated p eptide IgG antibody assay (units/volume)on 06-13-2021 Cyclic citrullinated peptide IgG Qn 7 units 0-19 [facility] Work Phone: Comment on above: Negative <20 Weak po sitive 20 - 39 Moderate positive 40 - 59 Strong positive >59 Serum mitochondria antibody detectionon 06-13-2021 Mitochondria Ab Ql (S) <20.0 Units 0.0-20.0 [facility] Work Phone: Comment on above: Negative 0.0 - 20.0 Equivocal 20.1 - 24.9 Positive >24.9Mitochondrial (M2) Antibodies are found in 90-96% ofpatients with primary biliary cirrhosis. Serum or plasma C reactive p rotein measurement (mass/volume)on 06-13-2021 CRP [Mass/Vol] mg/L 0.0-3.0 [facility] Work Phone: Comment on above: C-Reactive Protein ( CRP) provides useful information for thediagnosis, therapy and monitoring of inflammatory processesand associated diseases. For the evaluation of Relative Riskfor Cardiovascular Disease, a High Sensitivity CRP (HSCRP)should be ordered. Serum or plasma actin IgG an tibody assay (units/volume)on 06-13-2021 Actin IgG Qn 7 Units 0-19 [facility] Work Phone: Comment on above: Negative 0 - 19 Weak positive 20 - 30 Moderate to strong positive >30 Actin Antibodies are found in 52-85% of patients with autoimmune hepatitis or chronic active hepatitis and in 22% of patients with primary biliary cirrhosis. Serum or plasma albumin gem urement (mass/volume)on 06-13-2021 Albumin [Mass/Vol] 4.1 g/dL 3.2-5.0 [facility] Work Phone: Serum or plasma complement C 3 measurement (mass/volume)on 06-13-2021 Complement C3 [Mass/Vol] 100 mg/dL 82-167 [facility] Work Phone: Serum or plasma complement C 4 measurement (mass/volume)on 06-13-2021 Complement C4 [Mass/Vol] 18 mg/dL 12-38 [facility] Work Phone: Serum or plasma creatinine m easurement (mass/volume)on 06-13-2021 Creatinine [Mass/Vol] 0.89 mg/dL 0.55-1.02 [facility] Work Phone: Comment on above: The validity of the calculated GFR & GFRAA in patients over 70 years has not been determined. Clinical correlation is essential. Serum or plasma thyroperoxid ase antibody assay (units/volume)on 06-13-2021 TPO Ab Qn [IU]/mL 0-34 [facility] Work Phone: Comment on above: Performed at: [address] [id number] Director: Ej Landers PhD, Phone: [phone] at: - [facility] [address] [id number] Director: Lopez Wells MD, Phone: [phone] Serum or plasma urea nitroge n measurement (mass/volume)on 06-13-2021 Urea nitrogen [Mass/Vol] 14 mg/dL 7-18 [facility] Work Phone: Serum parietal cell antibody assay (units/volume)on 06-13-2021 Parietal cell Ab Qn (S) 12.1 Units 0.0-20.0 [facility] Work Phone: Comment on above: Negative 0.0 - 20.0 Equivocal 20.1 - 24.9 Positive >24.9Parietal Cell Antibodies are found in 90% of patientswith pernicious anemia and 30% of first degreerelatives with pernicious anemia. Serum rheumatoid factor dete ctionon 06-13-2021 Rheumatoid factor Ql (S) < 10.0 IU/mL <15 [facility] Work Phone: Squamous epithelial cells de tection in urine sediment by light microscopyon 06-13-2021 Epithelial cells.squamous LM Ql (Urine sed) 0 SEEN /hpf 5-10 [facility] Work Phone: Thin prep Papanicolaou smear with manual screeningon 06-13-2021 Thin prep Papanicolaou smear with manual screening 22 U/L 15-37 [facility] Work Phone: Urine blood detectionon 05-27 RBC Ql (U) Negative Negative [facility] Work Phone: RBC Ql (U) 0 SEEN /hpf 0-5 [facility] Work Phone: Urine clarityon 06-13-2021 Clarity (U) Clear Clear [facility] Work Phone: Urine color determinationon 06-13-2021 Color (U) Yellow Yellow [facility] Work Phone: Urine glucose detectionon Glucose Ql (U) Normal mg/dl Normal [facility] Work Phone: Urine leukocyte esterase det ection by dipstickon 06-13-2021 Leukocyte esterase Test strip Ql (U) 25 /ul Negative [facility] Work Phone: Urine pHon 06-13-2021 pH (U) 6.0 [pH] 5.0 - 8.0 [facility] Work Phone: Urine sediment bacteria coun t by microscopy (number/high power field)on 06-13-2021 Bacteria LM.HPF (Urine sed) [#/Area] 0 /[HPF] None Seen [facility] Work Phone: Urine specific gravity measu rementon 06-13-2021 Specific gravity (U) [Rel density] 1.020 1.002-1.03 0 [facility] Work Phone: Urobilinogen Auto test strip Ql (U)on 06-13-2021 Urobilinogen Ql (U) Normal mg/dl Normal [facility] Work Phone: Cervical or vagninal specime n microscopic examination by cytology stain (reported ason 05-19-2021 Cytology report Cyto stain Doc (Cvx/Vag) Comment [facility] Work Phone: Comment on above: [...] DNA Probe+sig amp Ql (Cvx) Negative Negative [facility] Work Phone: Comment on above: This nucleic acid am plification test detects fourteen high-risk HPV types (16,18,31,33,35,39,45,51,52,56,58,59,66,68)without differentiation.Performed at: - [address] [id number] Director: Lexii Rojas MD, Phone: [phone] at: =[facility] [id number] Director: Lexii Rojas MD, Phone: [phone] Laboratory - Cytologyon 04-30 Art Historian Cyto stain Nom (Cvx/Vag) [ID] Comment [facility] Work Phone: Comment on above: Olivier Elizondo, Cyto technologist (ASCP) Laboratory - Miscellaneous t estson 05-19-2021 Service comment (Unsp spec) [Interp] Comment [facility] Work Phone: Comment on above: This liquid based Th inPrep(R) pap test was screened withthe use of an image guided system. Service comment (Unsp spec) [Interp] . [facility] Work Phone: No Panel Informationon 05-19 Pap Smear QC Review Comment [facility] Work Phone: Comment on above: Yoselin Reza Cyto technologist Pathology report final diagnosis Narrative Comment [facility] Work Phone: Comment on above: NEGATIVE FOR INTRAEP ITHELIAL LESION OR MALIGNANCY.THIS SPECIMEN WAS RESCREENED PART OF OUR ACTIVITIES OFFICER PROGRAM. Laboratory - Microbiology an d Antimicrobial susceptibilityon 04-06-2021 SARS-CoV-2 (COVID-19) RNA CINTHIA+probe Ql (Unsp spec) Negative Not Detect [facility] Work Phone: Comment on above: Normal [...] Auto (Unsp spec) [#/Vol] 0.90 10*3/uL 0.83-4.51 [facility] Work Phone: Absolute reticulocyte counto n 03-07-2021 Reticulocytes (Bld) [#/Vol] 0.00 10*3/uL 0-5 [facility] Work Phone: Basophil percentageon 2020 Basophil percentage 2.8 mg/dL 2.5-4.9 [facility] Work Phone: Bilirubin [Mass/Vol] 1.00 mg/dL 0.20-1.00 [facility] [facility] Work Phone: Comment on above: For patients on eltr ombopag therapy, use of Dimension Mathews TBIL is not recommended. Chloride [Moles/Vol] 106 mmol/L 98-107 [facility] Work Phone: Cholesterol [Mass/Vol] 147 mg/dL <200 [facility] Work Phone: Comment on above: <200 mg/dL Desirable 200-240 mg/dL Borderline >240 mg/dL High Risk Glucose [Mass/Vol] 77 mg/dL 74-106 [facility] Work Phone: Comment on above: Please note revised GLUCOSE reference range effective 2017. Neutrophils (Bld) [#/Vol] 3.4 10*3/uL 2.0-7.7 [facility] Work Phone: Potassium [Moles/Vol] 4.1 mmol/L 3.5-5.1 [facility] Work Phone: Protein [Mass/Vol] 7.5 g/dL 6.4-8.2 [facility] Work Phone: Sodium [Moles/Vol] 140 mmol/L 136-145 [facility] Work Phone: Triglyceride [Mass/Vol] 90 mg/dL [facility] Work Phone: Comment on above: The drugs N-Acetylcy steine and Metamizole may falsely depress this assay.Serum Triglycerides Reference Interval Normal <150 mg/dL Borderline high 150 - 199 mg/dL High 200 - 499 mg/dL Very High > or = 500 mg/dL WBC (Bld) [#/Vol] 5.2 10*3/uL 4.4-11.0 [facility] Work Phone: Bilirubin Test strip Ql (U)o n 03-07-2021 Bilirubin Ql (U) Negative Negative [facility] Work Phone: Blood erythrocytes count (nu mber/volume)on 03-07-2021 RBC (Bld) [#/Vol] 4.30 10*6/uL 4.2-5.4 [facility]: Blood hemoglobin measurement (mass/volume)on 03-07-2021 Hemoglobin (Bld) [Mass/Vol] 13.5 g/dL 12.0-15.0 [facility] Work Phone: Blood platelet mean volumeon 03-07-2021 Platelet mean volume (Bld) [Entitic vol] 9.8 fL 6.2-12.0 [facility] Work Phone: Determination of erythrocyte mean corpuscular volume (MCV)on 03-07-2021 MCV (RBC) [Entitic vol] 94.4 fL 81-99 [facility] Work Phone: Direct bilirubinon Bilirubin.direct [Mass/Vol] 0.25 mg/dL 0.00-0.30 [facility] Work Phone: Hematocrit Auto (Bld) [Volum e fraction]on 03-07-2021 Hematocrit (Bld) [Volume fraction] 40.6 % 37-47 [facility] Work Phone: Ketones Test strip Ql (U)on 03-07-2021 Ketones Ql (U) Negative Negative [facility] Work Phone: Laboratory - Chemistry and C hemistry - challengeon 03-07-2021 ALP [Catalytic activity/Vol] 61 U/L 45-117 [facility] Work Phone: ALT [Catalytic activity/Vol] 21 U/L 13-56 [facility] Work Phone: Cholesterol.total/Choles terol in HDL [Mass ratio] 1.80 {ratio} [facility] Work Phone: CO2 [Moles/Vol] 29.0 mmol/L 21.0-32.0 [facility] Work Phone: Globulin (S) [Mass/Vol] 3.8 g/dL 2.2-4.2 [facility] Work Phone: Urea nitrogen/Creatinine [Mass ratio] 15.1 mg/mg 10-20 [facility] Work Phone: Laboratory - Hematology and Cell countson 03-07-2021 Erythrocyte distribution width (RBC) [Entitic vol] 41.0 fL 35.1-43.9 [facility] Work Phone: Erythrocyte distribution width (RBC) [Ratio] 11.9 % 11.6-14.6 [facility] Work Phone: MCH (RBC) [Entitic mass] 31.4 pg 27.0-32.0 [facility] Work Phone: Nucleated RBC/100 WBC (Bld) [Ratio] 0 % 0-5 [facility] Work Phone: MCHC Auto (RBC) [Mass/Vol]on 03-07-2021 MCHC (RBC) [Mass/Vol] 33.3 g/dL 32-36 [facility] Work Phone: Nitrite Test strip Ql (U)on 03-07-2021 Nitrite Ql (U) Negative Negative [facility] Work Phone: No Panel Informationon 03-07 Estimated GFR (MDRD) Amer 99 mL/min >60 [facility] Work Phone: Comment on above: GFR Calc Estimated GFR (MDRD) Non-Af Amer 82 mL/min >60 [facility] Work Phone: Comment on above: Non- GFR Calc Platelets bldon 03-07-2021 Platelets (Bld) [#/Vol] 386 10*3/uL 150-450 [facility] Work Phone: Protein Test strip Ql (U)on 03-07-2021 Protein Ql (U) Negative Negative [facility] Work Phone: Segmented neutrophils/100 WB C Auto (Bld)on 03-07-2021 Segmented neutrophils/100 WBC (Bld) 65.0 % 47-70 [facility] Work Phone: Serum or plasma albumin gem urement (mass/volume)on 03-07-2021 Albumin [Mass/Vol] 3.7 g/dL 3.2-5.0 [facility] Work Phone: Serum or plasma albumin/glob ulin mass ratioon 03-07-2021 Albumin/Globulin [Mass ratio] 1.0 {ratio} 0.9-2.4 [facility] Work Phone: Serum or plasma calcium gem urement (mass/volume)on 03-07-2021 Calcium [Mass/Vol] 9.0 mg/dL 8.5-10.1 [facility] Work Phone: Serum or plasma cholesterol in HDL measurement (mass/volume)on 03-07-2021 Cholesterol in HDL [Mass/Vol] 80 mg/dL [facility] Work Phone: Comment on above: The drugs N-Acetylcy steine and Metamizole may falsely depress this assay. Reference Range HDL <40 mg/dL Low HDL Cholesterol HDL >or= 60 mg/dL High HDL Cholesterol Serum or plasma cholesterol in VLDL measurement (mass/volume)on 03-07-2021 Cholesterol in VLDL [Mass/Vol] 18 mg/dL 5-40 [facility] Work Phone: Serum or plasma creatinine m easurement (mass/volume)on 03-07-2021 Creatinine [Mass/Vol] 0.79 mg/dL 0.55-1.02 [facility] Work Phone: Comment on above: The validity of the calculated GFR & GFRAA in patients over 70 years has not been determined. Clinical correlation is essential. Serum or plasma low density lipoprotein (LDL) cholesterol measurement (mass/volume)on 03-07-2021 Cholesterol in LDL [Mass/Vol] 49 mg/dL 0-130 [facility] Work Phone: Serum or plasma urea nitroge n measurement (mass/volume)on 03-07-2021 Urea nitrogen [Mass/Vol] 12 mg/dL 7-18 [facility] Work Phone: Serum or plasma uric acid me asurement (mass/volume)on 03-07-2021 Urate [Mass/Vol] 3.1 mg/dL 2.6-6.0 [facility] Work Phone: Comment on above: The drugs N-Acetylcy steine and Metamizole may falsely depress this assay. Thin prep Papanicolaou smear with manual screeningon 03-07-2021 Thin prep Papanicolaou smear with manual screening 15 U/L 15-37 [facility] Work Phone: Thin prep Papanicolaou smear with manual screening 5 5-15 [facility] Work Phone: Thin prep Papanicolaou smear with manual screening 140 U/L 84-246 [facility] Work Phone: Urine blood detectionon 02-26-2020 RBC Ql (U) Negative Negative [facility] Work Phone: Urine clarityon 03-07-2021 Clarity (U) Clear Clear [facility] Work Phone: Urine color determinationon 03-07-2021 Color (U) Yellow Yellow [facility] Work Phone: Urine glucose detectionon Glucose Ql (U) Normal mg/dl Normal [facility] Work Phone: Urine leukocyte esterase det ection by dipstickon 03-07-2021 Leukocyte esterase Test strip Ql (U) 25 /ul Negative [facility] Work Phone: Urine pHon 03-07-2021 pH (U) 7.0 [pH] [facility] Work Phone: Urine specific gravity measu rementon 03-07-2021 Specific gravity (U) [Rel density] 1.010 [facility] Work Phone: Urobilinogen Auto test strip Ql (U)on 03-07-2021 Urobilinogen Ql (U) Normal mg/dl Normal [facility] Work Phone: CBC W/DIFFon 12-16-2020 BASO ABS 0.10 K/CU MM Normal 0-0.2 [facility] Comment on above: Performed By: #### L [id number], [id number] #### [facility] [address] [place] [address] Basophils/100 WBC (Bld) 0.9 % Normal 0-[address] [facility] Comment on above: Performed By: #### L 200.12314, [id number] #### [facility] [address] [place] [address] EOS ABS 0.10 K/CU MM Normal 0-0.5 [facility] Comment on above: Performed By: #### L 200.17607, [id number] #### [facility] [address] [place] [address] Eosinophils/100 WBC (Bld) 1.9 % Normal 0-5 [facility] Comment on above: Performed By: #### L 200.09576, [id number] #### [facility] [address] [place] [address] Erythrocyte distribution width (RBC) [Ratio] 12.2 % Normal 11-14.5 [facility] Comment on above: Performed By: #### L 200.49930, [id number] #### [facility] [address] [place], [place] [id number] Hematocrit (Bld) [Volume fraction] 38.2 % Normal 35.0-47.0 [facility] Comment on above: Performed By: #### L 200.71245, [id number] #### [facility] [address] [place] [address] Hemoglobin (Bld) [Mass/Vol] 12.7 g/dL Normal 11.5-15.5 [facility] Comment on above: Performed By: #### L 200.00112, [id number] #### [facility] [address] [place] [address] IMMATR GRAN ABS 0.00 K/CU MM Normal Less than 2 [facility] Comment on above: Performed By: #### L 200.59708, [id number] #### [facility] [address] [place] [address] IMMATURE GRAN % 0.4 % Normal Less than 2 [facility] Comment on above: Performed By: #### L 200.54197, [id number] #### [facility] [address] [place] [address] LYMPH ABS 1.00 K/CU MM Normal 0.9-4.4 [facility] Comment on above: Performed By: #### L 200.39427, [id number] #### [facility] [address] [place] [address] Lymphocytes/100 WBC (Bld) 14.8 % Low 20-40 [facility] Comment on above: Performed By: #### L 200.78585, [id number] #### [facility] [address] [place] [address] MCHC (RBC) [Mass/Vol] 33.2 g/dL Normal 32.0-36.0 [facility] Comment on above: Performed By: #### L 200.78346, L200.15293 #### [facility] [address] [place], [place] [address] MCV (RBC) [Entitic vol] 94.1 fL Normal 80.0-99.[address] [facility] Comment on above: Performed By: #### L 200.47783, [id number] #### [facility] [address] [place] [address] MONO ABS 1.00 K/CU MM Normal 0.1-1.1 [facility] Comment on above: Performed By: #### L 200.90547, L200.02281 #### [facility] [address] [place] [address] Monocytes/100 WBC (Bld) 13.8 % High 2-[address] [facility] Comment on above: Performed By: #### L 200.84562, L200.75782 #### [facility] [address] [place] [address] NEUTROPHIL ABS 4.70 K/CU MM Normal 2.0-8.3 [facility] Comment on above: Performed By: #### L 200.69715, [id number] #### [facility] [address] [place] [address] Neutrophils/100 WBC (Bld) 68.2 % Normal 45-75 [facility] Comment on above: Performed By: #### L 200.52498, L200.40148 #### [facility] [address] [place] [address] Nucleated RBC/100 WBC (Bld) [Ratio] 0.0 % Normal Less than 1 [facility] Comment on above: Performed By: #### L 200.41871, L200.61451 #### [facility] [address] [place] [address] Platelet mean volume (Bld) [Entitic vol] 11.8 fL Normal 9.4-12.4 [facility] Comment on above: Performed By: #### L 200.58275, L200.37889 #### [facility] [address] [place] [address] PLT 350 K/CU MM Normal 150-450 [facility] Comment on above: Performed By: #### L 200.41677, [id number] #### [facility] [place] [address] RBC 4.06 M/CU MM Normal 3.90-5.30 [facility] Comment on above: Performed By: #### L 200.30925, L200.30071 #### [facility] [address] [place], [place] [address] WBC 6.9 K/CUMM Normal 4.5-11.0 [facility] Comment on above: Performed By: #### L 200.57373, L200.13283 #### [facility] [address] [place] [address] [id number] CRPon 12-16-2020 CRP [Mass/Vol] 0.4 mg/L Normal LESS THAN 1 [facility] Comment on above: Performed By: #### L 550.00027 #### [facility] [address] [place], [place] [address] WSR/MODon 12-16-2020 WSR/MOD 6 MM/HR Normal 0-20 [facility] Comment on above: Performed By: #### L 200.89381, L200.43997 #### [facility] [address] [place] [address] 74763 BODY FLDon 01-29-2020 BODY FLD GRAM STAIN FEW WBC'S NO ORGANISMS SEEN NO GROWTH AFTER 5 DAYS Normal [facility] Comment on above: Performed By: #### M 100.93141 #### [facility] [address] [place] [address] 95378 FLC CELL W/DIFFon 01-26-2020 PATH COMMENTS Normal [facility] Comment on above: Result Comment: CYTO PREP INTERPRETATION: Hemodiluted specimen. Reviewed by Imtiaz Russo D.O., Pathologist. 01/25/2020 [id number] Performed By: #### L 400.99967, L400.57219 #### [facility] [address] [place] [address] 63457 FLC CELL W/DIFFon 01-24-2020 FLD APPEAR BLOODY Normal [facility] Comment on above: Performed By: #### L 400.42960, L400.17049 #### [facility] [address] [place] [address] 50142 FLD BASO 0 % Normal [facility] Comment on above: Performed By: #### L 400.04655, L400.51390 #### [facility] [address] [place] [address] 31707 FLD BLAST 0 % Normal [facility] Comment on above: Performed By: #### L 400.74913, L400.41430 #### [facility] [address] [place] [address] 11150 FLD EOS 0 % Normal [facility] Comment on above: Performed By: #### L 400.67182, L400.90312 #### [facility] [address] [place] [address] 36483 FLD LYMPH 63 % Normal NONE [facility] Comment on above: Performed By: #### L 400.71227, L400.89808 #### [facility] [address] [place] [address] 34821 FLD MONO/HISTIO 25 % Normal NONE [facility] Comment on above: Performed By: #### L 400.45349, L400.37443 #### [facility] [address] [place] [address] 22681 FLD NEUTS 12 % Normal NONE [facility] Comment on above: Performed By: #### L 400.97332, L400.49852 #### [facility] [address] [place] [address] 48690 FLD OTHER CELLS 0 Normal [facility] Comment on above: Performed By: #### L 400.84478, L400.73452 #### [facility] [address] [place] [address] 02987 FLD PMN% 19.1 % Normal [facility] Comment on above: Result Comment: 2 pa rt automated diff (polymorphonuclear cells) Performed By: #### L 400.36113, L400.24610 #### [facility] [address] [place], [place] [address] FLD RBC [id number] /CU MM Normal [facility] Comment on above: Performed By: #### L 400.14274, L400.27760 #### [facility] [address] [place] [address] 66890 FLD WBC 261 /CU MM High 0-5 [facility] Comment on above: Performed By: #### L 400.13190, L400.67726 #### [facility] [address] [place], [place] [address] FLDMN% 80.9 % Normal [facility] Comment on above: Result Comment: 2 pa rt automated diff (mononuclear cells) Performed By: #### L 400.91485, L400.64377 #### [facility] [address] [place] [address] 19054 FLUID COLOR RED Normal [facility] Comment on above: Performed By: #### L 400.12187, L400.44941 #### [facility] [address] [place] [address] 48381 SOURCE KNEE Normal [facility] Comment on above: Performed By: #### L 400.56941, L400.35319 #### [facility] [address] [place] [address] 64862 FLUID CRYSTALSon 01-24-2020 FLUID CRYSTALS Normal [facility] Comment on above: Result Comment: NO C RYSTALS SEEN Performed By: #### L 400.67656, L400.99789 #### [facility] [address]# [phone] Vital Signs Date Time Vital Sign Value Performing Clinician Juan Francisco ha 01-07-2025 13:25-0400 Body temperature 97.9 [degF] Out [facility] Doctor [facility] 01-07-2025 13:25-0400 Diastolic blood pressure 72 mm[Hg] Out [facility] Doctor [facility] 01-07-2025 13:25-0400 Heart rate 88 /min Out [facility] Doctor [facility] 01-07-2025 13:25-0400 SaO2% (BldA) [Mass fraction] 100 % Out [facility] 01-07-2025 13:25-0400 Systolic blood pressure 130 mm[Hg] Out [facility] 05-16-2024 15:27-0500 Body height 160.02 cm COLLETTE PARKER MD Work Phone: [facility] 05-16-2024 15:27-0500 Body mass index (BMI) [Ratio] 27.6 kg/m2 COLLETTE PARKER MD Work Phone: [facility] 05-16-2024 15:27-0500 Body weight 70.76 kg COLLETTE PARKER MD Work Phone: [facility] 05-16-2024 15:27-0500 Diastolic blood pressure 82 mm[Hg] COLLETTE PARKER MD Work Phone: [facility] 05-16-2024 15:27-0500 Systolic blood pressure 133 mm[Hg] COLLETTE PARKER MD Work Phone: [facility] 04-05-2023 14:48-0500 Body height 160.02 cm [employer]Morris Ramos [employer] Work Phone: [facility] 04-05-2023 14:38-0500 Body mass index (BMI) [Ratio] 26.4 kg/m2 [employer]Morris Ramos [employer] Work Phone: [facility] 04-05-2023 14:38-0500 Body weight 65.48 kg [employer] Judith Rachel [employer] Work Phone: [facility] 04-05-2023 14:38-0500 Diastolic blood pressure 72 mm[Hg] [employer] Judith Walpole [employer] Work Phone: [facility] 04-05-2023 14:38-0500 Systolic blood pressure 118 mm[Hg] [employer] Judith Walpole [employer] Work Phone: [facility] 10-05-2022 11:55-0400 Body temperature 97.4 [degF] YOON KENDIS Work Phone: [facility] 10-05-2022 11:55-0400 Diastolic blood pressure 85 mm[Hg] YOON KENDIS Work Phone: [facility] 10-05-2022 11:55-0400 Heart rate 61 /min YOON KENDIS Work Phone: [facility] 10-05-2022 11:55-0400 Respiratory rate 16 /min YOON KENDIS Work Phone: [facility] 10-05-2022 11:55-0400 SaO2% (BldA) [Mass fraction] 100 % YOON KENDIS Work Phone: [facility] 10-05-2022 11:55-0400 Systolic blood pressure 119 mm[Hg] YOON KENDIS Work Phone: [facility] 10-05-2022 10:30-0400 Body height 160.02 cm YOON KENDIS Work Phone: [facility] 10-05-2022 10:30-0400 Body mass index (BMI) [Ratio] 24.7 kg/m2 YOON KENDIS Work Phone: [facility] 10-05-2022 10:30-0400 Body weight 63.4 kg YOON KENDIS Work Phone: [facility] 06-01-2023 11:00-0400 Body height 160.02 cm [employer] Cris Hollis [employer] Work Phone: [facility] 08-27-2022 11:00-0400 Body weight 63.23 kg [employer] Cris Hollis [employer] Work Phone: [facility] 07-27-2022 09:25-0400 Body height 160.02 cm [employer] Cris Hollis [employer] Work Phone: [facility] 07-27-2022 09:25-0400 Body mass index (BMI) [Ratio] 25.4 kg/m2 [employer] Cris Hollis [employer] Work Phone: [facility] 07-27-2022 09:25-0400 Body weight 65.31 kg [employer] Cris Hollis [employer] Work Phone: [facility] 07-27-2022 09:25-0400 Diastolic blood pressure 84 mm[Hg] [employer] Cris Hollis [employer] Work Phone: [facility] 07-27-2022 09:25-0400 Heart rate 74 /min [employer] Cris Hollis [employer] Work Phone: [facility] 07-27-2022 09:25-0400 SaO2% (BldA) [Mass fraction] 98 % [employer] Cris Hollis [employer] Work Phone: [facility] 07-27-2022 09:25-0400 Systolic blood pressure 127 mm[Hg] [employer] Cris Hollis [employer] Work Phone: [facility] 07-29-2021 14:55-0400 Body height 160.02 cm RICHI STODDARD Work Phone: [facility] Work Phone: 07-29-2021 14:55-0400 Body mass index (BMI) [Ratio] 24.4 kg/m2 RICHI Nguyễn PA Work Phone: [facility] Work Phone: 07-29-2021 14:55-0400 Body temperature 98.7 [degF] PA Sonido Nguyễn PA Work Phone: [facility] Work Phone: 07-29-2021 14:55-0400 Body weight 62.59 kg PA Sonido Nguyễn PA Work Phone: [facility] Work Phone: 07-29-2021 14:55-0400 Diastolic blood pressure 62 mm[Hg] PA Sonido Nguyễn PA Work Phone: [facility] Work Phone: 07-29-2021 14:55-0400 Heart rate 90 /min PA Sonido Nguyễn PA Work Phone: [facility] Work Phone: 07-29-2021 14:55-0400 Respiratory rate 14 /min PA Sonido Nguyễn PA Work Phone: [facility] Work Phone: 07-29-2021 14:55-0400 SaO2% (BldA) [Mass fraction] 99 % PA Sonido Nguyễn PA Work Phone: [facility] Work Phone: 07-29-2021 14:55-0400 Systolic blood pressure 110 mm[Hg] PA Sonido Nguyễn PA Work Phone: [facility] Work Phone: 06-24-2021 15:36-0400 Body height 157.5 cm Demetrio Hancock MD Work Phone: [facility] 06-24-2021 15:36-0400 Body temperature 98.2 [degF] Demetrio Hancock MD Work Phone: [facility] 06-24-2021 15:36-0400 Body weight 62.6 kg Demetrio Hancock MD Work Phone: [facility] 06-24-2021 15:36-0400 Diastolic blood pressure 68 mm[Hg] Demetrio Hancock MD Work Phone: [facility] 06-24-2021 15:36-0400 Heart rate 103 /min Demetrio Hancock MD Work Phone: [facility] 06-24-2021 15:36-0400 SaO2% (BldA) [Mass fraction] 96 % Demetrio Hancock MD Work Phone: [facility] 06-24-2021 15:36-0400 Systolic blood pressure 112 mm[Hg] Demetrio Hancock MD Work Phone: [facility] Encounters Encounter Date Encounter Type Care Provider Facility Start: 02-01-2025 ambulatory [facility] Facility:[facility] Start: 01-07-2025 End: 01-07-2025 Patient encounter procedure Abbe Hansen [employer] [facility] Work Phone: Start: 01-07-2025 End: 01-07-2025 ambulatory [place] [facility] Start: 12-30-2024 End: 12-30-2024 ambulatory Out of [facility] Doctor -Laboratory Start: 12-30-2024 End: 12-30-2024 Patient encounter procedure SHANKAR NOLEN MD -Laboratory Work Phone: Start: 12-30-2024 End: 12-30-2024 ambulatory SHANKAR NOLEN Facility:[facility] Start: 10-16-2024 End: 10-16-2024 Patient encounter procedure Adam Geiger DO -[facility] Work Phone: Start: 10-16-2024 End: 10-16-2024 ambulatory COLLETTE PARKER MD Work Phone: -[facility] Start: 09-26-2024 Non-patient / Non-visit Dr. Uyen Mcguire MD -[facility] Work Phone: Start: 09-07-2024 End: 09-07-2024 ambulatory COLLETTE PARKER MD Work Phone: [facility] Work Phone: Start: 09-07-2024 End: 09-07-[address] Philippe Gonzalez MD -Laboratory Specimen Work Phone: Start: 09-07-2024 End: 09-07-2024 ambulatory Philippe Gonzalez Facility:[facility] Start: 09-04-2024 End: 09-04-2024 ambulatory COLLETTE PARKER MD Work Phone: [facility] Work Phone: Start: 09-04-2024 End: 09-04-2024 Patient encounter procedure Radha Caicedo VICE PRESIDENT [employer] -Outpatient Breast Imaging Work Phone: Start: 09-04-2024 End: 09-04-2024 ambulatory Radha Caicedo Facility:[facility] Start: 07-15-2024 End: 07-15-2024 Patient encounter procedure OUT OF TOWN DOCTOR -Laboratory Specimen Work Phone: Start: 07-15-2024 End: 07-15-2024 ambulatory COLLETTE PARKER Facility:[facility] Start: 07-05-2024 End: 07-05-2024 ambulatory COLLETTE PARKER MD Work Phone: [facility] Work Phone: Start: 07-05-2024 End: 07-05-2024 Patient encounter procedure COLLETTE PARKER MD Work Phone: -Laboratory, Specimen Work Phone: Start: 07-05-2024 End: 07-05-2024 ambulatory COLLETTE PARKER Facility:[facility] Start: 06-24-2024 End: 06-24-2024 ambulatory COLLETTE PARKER MD Work Phone: [facility] Work Phone: Start: 06-24-2024 End: 06-24-2024 Patient encounter procedure COLLETTE PARKER MD -Laboratory, Specimen Work Phone: Start: 06-24-2024 End: 06-24-2024 ambulatory COLELTTE PARKER Facility:[facility] Start: 05-17-2024 End: 05-17-2024 Patient encounter procedure COLLETTE PARKER MD -Laboratory Work Phone: Start: 05-17-2024 End: 05-17-2024 ambulatory [facility] Facility:[facility] Start: 05-16-2024 End: 05-16-2024 Patient encounter procedure Radha Caicedo VICE PRESIDENT [employer] -[place] [facility] Work Phone: Start: 05-16-2024 End: 05-16-2024 ambulatory [facility] Facility[facility] Start: 04-14-2024 ambulatory Meghan Chicas lity:[facility] Start: 03-31-2024 End: 03-31-2024 Patient encounter procedure Adam Geiger -[facility] Work Phone: Start: 03-31-2024 End: 03-31-2024 ambulatory [facility] Facility:[facility] Start: 02-29-2024 End: 02-29-[address] Philippe Gonzalez MD -Laboratory Work Phone: Start: 02-29-2024 Registered Referred [employer]OYEE [employer] -Employee Health Start: 02-29-2024 ambulatory [facility] Facility:[facility] Start: 02-29-2024 End: 02-29-2024 ambulatory [facility] Facility:[facility] Start: 07-03-2023 End: 07-03-2023 ambulatory [employer]ICE [employer] Judith Ramos VICE PRESIDENT [employer] Work Phone: [facility] Work Phone: Start: 07-03-2023 End: 07-03-2023 Patient encounter procedure VICE PRESIDENT [employer] Judith Ramos VICE PRESIDENT [employer] Work Phone: [facility]-Laboratory Work Phone: Start: 06-22-2023 End: 06-27-2023 ambulatory YOON RAE MD Facility:A Start: 06-22-2023 End: 06-27-2023 Encounter for general adult medical examination without abnormal findings YOON RAE MD Facility:[facility] Start: 06-10-2023 End: 06-10-2023 ambulatory [employer]ICE [employer]IDENT [employer] Judith Ramos VICE PRESIDENT [employer] Work Phone: [facility] Work Phone: Start: 06-10-2023 End: 06-10-2023 Patient encounter procedure VICE PRESIDENT [employer] Judith Rachel VICE PRESIDENT [employer] Work Phone: [facility]-Laboratory, Specimen Work Phone: Start: 04-29-2023 End: 04-29-2023 Patient encounter procedure VICE PRESIDENT [employer] Judith Walpole VICE PRESIDENT [employer] Work Phone: [facility] Work Phone: Start: 04-14-2023 End: 04-14-2023 ambulatory VICE PRESIDENT [employer] Judith Rachel VICE PRESIDENT [employer] Work Phone: [facility] Work Phone: Start: 04-14-2023 End: 04-14-2023 Patient encounter procedure VICE PRESIDENT [employer] Judith Rachel VICE PRESIDENT [employer] Work Phone: [facility]-Ultrasound, [facility] Work Phone: Start: 04-10-2023 End: 04-10-2023 ambulatory VICE PRESIDENT [employer] Judith Rachel VICE PRESIDENT [employer] Work Phone: [facility] Work Phone: Start: 04-10-2023 End: 04-10-2023 Patient encounter procedure VICE PRESIDENT [employer] Judith Walpole VICE PRESIDENT [employer] Work Phone: [facility]-Laboratory Work Phone: Start: 04-05-2023 End: 04-05-2023 Patient encounter procedure VICE PRESIDENT [employer] Judith Walpole VICE PRESIDENT [employer] Work Phone: [facility] Work Phone: Start: 03-06-2023 End: 03-06-2023 ambulatory [facility] Work Phone: Start: 03-06-2023 End: 03-06-2023 Patient encounter procedure [facility]-Laboratory Work Phone: Start: 10-05-2022 Non-patient / Non-visit YOON RAE Work Phone: [facility] Start: 10-05-2022 End: 10-05-2022 Admission to same day surgery center YOON RAE Work Phone: [facility]-Endoscopy Work Phone: Start: 10-05-2022 End: 10-05-2022 ambulatory YOON RAE Work Phone: [facility] Work Phone: Start: 08-27-2022 End: 09-25-2022 ambulatory [employer]ICE [employer]IDENT [employer] Cris Hollis VICE PRESIDENT [employer] Work Phone: [facility] Work Phone: Start: 08-27-2022 End: 09-25-2022 Discharged Recurring VICE PRESIDENT [employer] Cris Hollis VICE PRESIDENT [employer] Work Phone: [facility]-Nutritional Services Work Phone: Start: 08-19-2022 End: 08-19-2022 ambulatory [employer]ICE PRESIDENT [employer] Cris Hollis VICE PRESIDENT [employer] Work Phone: [facility] Work Phone: Start: 08-19-2022 End: 08-19-2022 Patient encounter procedure VICE PRESIDENT [employer] Cris Hollis VICE PRESIDENT [employer] Work Phone: [facility]-Outpatient Breast Imaging Start: 08-13-2022 End: 08-13-2022 Patient encounter procedure VICE PRESIDENT [employer] Cris Hollis VICE PRESIDENT [employer] Work Phone: [facility]-Nuclear Medicine, [facility] Start: 08-01-2022 End: 08-01-2022 ambulatory [employer]ICE PRESIDENT [employer] Cris Hollis VICE PRESIDENT [employer] Work Phone: [facility] Work Phone: Start: 08-01-2022 End: 08-01-2022 Patient encounter procedure VICE PRESIDENT [employer] Cris Hollis VICE PRESIDENT [employer] Work Phone: [facility]-Laboratory Start: 07-29-2022 End: 07-29-2022 Patient encounter procedure VICE PRESIDENT [employer] Cris Hollis VICE PRESIDENT [employer] Work Phone: [facility]-Laboratory, Specimen Start: 07-27-2022 End: 07-27-2022 ambulatory [employer]ICE PRESIDENT [employer] Cris Barajasne VICE PRESIDENT [employer] Work Phone: [facility] Work Phone: Start: 07-27-2022 End: 07-27-2022 Patient encounter procedure VICE PRESIDENT [employer] Cris Hollis VICE PRESIDENT [employer] Work Phone: [facility] Gastroenter[facility] Start: 07-16-2022 End: 07-16-2022 ambulatory [facility] Work Phone: Start: 07-16-2022 End: 07-16-2022 Patient encounter procedure [facility]-Laboratory, Specimen Start: 07-10-2022 End: 07-10-2022 Patient encounter procedure [facility]-Laboratory, [place] [employer] pattern[employer] Start: 12-17-2021 End: 12-17-2021 ambulatory [facility] Work Phone: Start: 12-17-2021 End: 12-17-2021 Patient encounter procedure [facility] Start: 09-22-2021 End: 09-22-2021 Patient encounter procedure RICHI STODDARD Work Phone: [facility] Start: 08-01-2021 Telephone encounter Demetrio arroyo MD Work Phone: General Surgery Comment on above: Release Of Medical R ecords Start: 07-29-2021 End: 07-29-2021 Patient encounter procedure RICHI STODDARD Work Phone: [facility] Start: 06-24-2021 End: 06-24-2021 Patient encounter procedure Demetrio Hancock MD Work Phone: General Surgery Comment on above: APPOINTMENT CANCELLE D (Primary Dx) Start: 06-13-2021 End: 06-13-2021 Patient encounter procedure [facility]-Laboratory Start: 06-09-2021 End: 06-09-2021 Patient encounter procedure [facility]-Outpatient Breast Imaging Start: 05-19-2021 End: 05-19-2021 Patient encounter procedure [facility]-Laboratory, Specimen Start: 04-06-2021 Registered Referred [facility]-Employee Health Start: 03-07-2021 Registered Referred [facility] Procedures Date Procedure Procedure Detail Performing Clinician Start: 12-30-2024 Antibody to extracta ble nuclear antigen measurement Out [facility] Doctor Comment on above: Previous reported re sult: TNP AIEdited by: KEVIN on 01/01/25:1508 AMENDED REPORT 01/01/25 1508 LE Ab previously reported as: Test not performed Start: 12-30-2024 C>3< complement assay O [facility] Doctor Comment on above: Performed at: [facility] [id number] [place], [place] [id number] Director: Ej Landers PhD, Phone: [phone] Start: 12-30-2024 Electrophoresis: [id number] Out [facility] Doctor Start: 12-30-2024 Electrophoresis: [id number] [place] Doctor Start: 12-30-2024 Electrophoresis: perri ma globulin Out [facility] Doctor Start: 12-30-2024 V/STOL [employer]ING [employer]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 antibody measurement Out [facility] Doctor Comment on above: Previous reported re sult: TNP AIEdited by: KEVIN on 01/01/25:1508 AMENDED REPORT 01/01/25 1508 V/[employer] OFFICER Ab previously reported as: Test not performed Start: 12-30-2024 Urnls dip stick/tabl et reagent auto microscopy Out [facility] Doctor Start: 09-07-2024 Immunoglobulin M measurement COLLETTE PARKER MD Work Phone: Comment on above: Performed at: [id number] [place], [place] [id number] Director: Ej Landers PhD, Phone: [phone] Start: 09-04-2024 Screening mammography Candice PARKER MD Work Phone: Start: 07-15-2024 Urine culture COLLETTE GRUBER MD Work Phone: Start: 06-24-2024 C>3< complement assay R JULIANNE PARKER MD Work Phone: Comment on above: Performed at: [facility] [address] [facility] [id number] [place], [place] [id number] Director: Ej Landers PhD, Phone: [phone] Start: 06-24-2024 Urnls dip stick/tabl et reagent [...] mIU/mL Start: 06-10-2023 Clostridium difficil e detection VICE PRESIDENT [employer] Judith Ramos VICE PRESIDENT [employer] Work Phone: Start: 06-10-2023 Giardia Antigen (JESSICA) N P-C Judith Ramos VICE PRESIDENT [employer] Work Phone: Start: 06-10-2023 Lactoferrin measurement VICE PRESIDENT [employer]-C Juidth Ramos VICE PRESIDENT [employer] Work Phone: Start: 06-10-2023 Measurement of occul t blood in stool specimen using immunoassay VICE PRESIDENT [employer] Judith Ramos VICE PRESIDENT [employer] Work Phone: Start: 06-10-2023 Nucleic acid assay VICE PRESIDENT [employer]-C Judith Ramos VICE PRESIDENT [employer] Work Phone: Start: 06-10-2023 Ova OR parasites identification VICE PRESIDENT [employer] Judith Ramos VICE PRESIDENT [employer] Work Phone: Start: 04-14-2023 Pelvic echography VICE PRESIDENT [employer] Judith Ramos VICE PRESIDENT [employer] Work Phone: Start: 10-05-2022 Colonoscopy YOON MILLER IS Work Phone: Start: 08-19-2022 Screening mammography N P-C Cris Shafer VICE PRESIDENT [employer] Work Phone: Start: 08-13-2022 Radionuclide gastric emptying study VICE PRESIDENT [employer] Cris Shafer VICE PRESIDENT [employer] Work Phone: Start: 07-29-2022 Lactoferrin measurement VICE PRESIDENT [employer]-C Cris Shafer VICE PRESIDENT [employer] Work Phone: Start: 12-17-2021 MRI of brain with contrast Start: 09-22-2021 MRI of bilateral stone asts with contrast RICHI STODDARD Work Phone: Start: 06-09-2021 Bilateral mammography Start: 06-09-2021 Ultrasonography of breast Plan of Treatment Date Care Activity Detail Author Start: 01-07-2025 End: 01-07-2025 Patient encounter procedure URI (upper respiratory infection) [facility] Work Phone: Start: 09-07-2024 Immunoglobulin measurement [facility] Start: 10-05-2022 Patient discharge [facility] Start: 08-01-2022 Lupus anticoagulant assay [facility] Start: 08-01-2022 Procedure [facility] Start: 07-29-2022 Protein measurement [facility] Start: 04-29-2021 COVID-19 VACCINE (4 - Booster for Moderna series) COVID-19 VACCINE (4 - Booster for Moderna series) [facility] Start: 2018 COLOGUARD (FIT-DNA) COLOGUARD (FIT-DNA) [facility] Start: 2018 Colonoscopy COLONOSCOPY [facility] Start: 2018 COLORECTAL CANCER SCREENING COLORECTAL CANCER SCREENING [facility] Start: [address] COLONOGRAPHY [facility] Start: 2018 DIABETES SCREEN DIABETES SCREEN [facility] Start: 2018 FECAL OCCULT BLOOD FECAL OCCULT BLOOD [facility] Start: 2018 LIPID SCREEN LIPID SCREEN [facility] Start: 2018 SIGMOIDOSCOPY SIGMOIDOSCOPY [facility] Start: 2013 Mammography MAMMOGRAM [facility] Start: 2003 HPV TESTING HPV TESTING [facility] Start: 1994 PAP TESTING PAP TESTING [facility] Start: 1992 Urine microalbumin profile DTAP,TDAP,TD (1 - Tdap) [facility] Start: 1991 HEPATITIS C SCREENING HEPATITIS C SCREENING [facility] Start: 1991 HIV SCREENING HIV SCREENING [facility] Start: 1985 Adult depression screening assessment DEPRESSION SCREENING [facility] Start: 1979 PNEUMOCOCCAL (1 - PCV) PNEUMOCOCCAL (1 - PCV) [facility] [id number] [Mass/volume] in Serum or Plasma [facility] Cardiolipin IgG Ab [Units/volume] in Serum or Plasma [facility] Cardiolipin IgM Ab [Units/volume] in Serum or Plasma [facility] Elastase.pancreatic [Presence] in Stool [facility] Fat [Mass/mass] in Stool [facility] Fat.neutral [Presenc e] in Stool [facility] Giardia lamblia anti gen assay [facility] IgA [Mass/volume] in Serum or Plasma [facility] IgG [Mass/volume] in Serum or Plasma [facility] IgM [Mass/volume] in Serum or Plasma [facility] Lupus anticoagulant neutralization platelet [Time] in Platelet poor plasma by Coagulation assay [facility] MG Breast - bilatera l Screening [facility] MG Breast - bilatera l Screening [facility] Ova and parasites identified in Unspecified specimen by Light microscopy [facility] Partial thromboplast in time ratio [facility] Path report.final Dx Spec [facility] Patient referral [facility] Work Phone: Protein measurement [facility] Radionuclide gastric emptying study [facility] Thrombin time [facility] US [facility] US Pelvis transvaginal [facility] Immunizations Immunization Date Immunization Notes Care Provider Fa cility 01-14-2023 Covid (Spikevax) [facility] 01-14-2023 influenza, injectabl e, quadrivalent, preservative free [facility] 01-03-2021 influenza, injectabl e, quadrivalent, preservative free [facility] 01-03-2021 influenza, seasonal, injectable [facility] 04-23-2020 Covid (Moderna) [facility] 03-26-2020 Covid (Moderna) [facility] 12-24-2017 influenza, injectabl e, quadrivalent, preservative free [facility] 12-24-2017 influenza, seasonal, injectable [facility] 12-16-2016 influenza, injectabl e, quadrivalent, preservative free [facility] 12-16-2016 influenza, seasonal, injectable [facility] 12-27-2015 influenza, injectabl e, quadrivalent, preservative free [facility] 12-27-2015 influenza, seasonal, injectable [facility] 12-26-2014 influenza, injectabl e, quadrivalent, preservative free [facility] 12-26-2014 influenza, seasonal, injectable [facility] 12-21-2013 influenza, injectabl e, quadrivalent, preservative free [facility] 12-21-2013 influenza, seasonal, [facility] Payers Date Payer Category Payer Self-pay [id number] 2020 Unknown MMO MMO [employer] [id number] 2020-Present [phone] [address] [place] [address] O [id number] 2009 Unknown [id number] 1973 Unknown [id number] Unknown [id number] Unknown [id number] Unknown [id number] Unknown [id number] Unknown [id number] Unknown [id number] [id number] Unknown [id number] [id number] Unknown [id number] [id number] Unknown [id number] [id number] Unknown [id number] [id number] Unknown [id number] [id number] Unknown [id number] [id number] Unknown [id number] [id number] Unknown [id number] [id number] Unknown [id number] Social History Date Type Detail Facility Start: 11-30-2014 End: 11-04-2022 Tobacco smoking status NHIS Unknown if ever smoked [facility] Start: 1975 Sex Assigned At Female W [facility] Start: 08-17-2023 Tobacco smoking stat us NHIS Never smoked tobacco [facility] Start: 06-24-2021 Alcohol intake 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 (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) [facility] Start: 04-24-2009 History SDOH Alcohol Comment socially [facility] Start: 1975 Sex Assigned At Not on file C [facility] Start: 06-14-2021 End: 06-24-2021 Exposure to SARS-CoV-2 (event) Not sure [facility] Start: 06-27-2024 End: 07-11-2024 Sex Female (finding) [facility] Sex Female [facility] Goals Date Patient Goal Desired Activity /State Mental Status Date Assessment Result Facility 10-05-2022 Cognitive function Voice/Name [facility] Work Phone: Clinical Notes 05-19-2021 to 01-07-2025 Note Date & Type Note Facility 01-07-2025 Progress note [facility] 10-16-2024 Evaluation note Diagnosis Onset Date Resolution Early satiety chronic October 16, 2024 3:34pm Flatulence/gas pain/belching chronic October 16, 2024 3:34pm IBS (irritable bowel syndrome) chronic October 16, 2024 3:34pm Constipation inactive October 16, 2 025 3:34pm URI (upper respiratory infection) acute January 07 1:20pm [facility] Work Phone: 1(542) 361-806102-18-2025 Evaluation note* Diagnosis Onset Date Resolution Status Admit Date Climacteric acute April 3:25pm Overweight (BMI 25.0-29.9) acute May 16, 2024 3:25pm Women's annual routine gynecological examination acute 2024 3:25pm [facility] Work Phone: 1(890) 414-658201-03-2025 Evaluation note* Diagnosis Onset Date Resolution Status Admit Date Early satiety chronic March 3:27pm Flatulence/gas pain/belching chronic March 31, 2024 3:27pm IBS (irritable bowel syndrome) chron ic March 31, 2024 3:27pm Constipation inactive March 31, 2024 3:27pm Climacteric acute April 3:25pm Overweight (BMI 25.0-29.9) acute May 16, 2024 3:25pm Women's annual routine gynecological examination acute Februa 2024 3:25pm [facility] Work Phone: 1(927) 616-936107-10-2023 Procedure [facility] 10-05-2022 Procedure [facility]07-10-2023 Procedure note [facility]07-10-2023 Procedure [facility] 07-16-2022 NotePap Smear Specimen AdequacyApril 2022 1:29pmComment. Satisfactory for evaluation. Endocervical and/or squamous metaplasticcells (endocervical component)are present.[facility] A#[id number] HospitalComment on above:Satisfactory for evaluation. Endocervical and/or squamous metaplasticcells (endocervical component)are present.07-16-2022 NotePap Smear Specimen AdequacyApril 2022 1:29pmComment.Satisfactory for evaluation. Endocervical and/or squamous metaplasticcells (endocervical component)are present.[facility] A#[id number] Hospital Comment on above:Satisfactory for evaluation. Endocervical and/or squamous metaplasticcells (endocervical component)are present.07-16-2022 NotePap Smear Specimen AdequacyApril 2022 1:29pmComment.Satisfactory for evaluation. Endocervical and/or squamous metaplasticcells (endocervical component)are present.[facility] A#[id number] HospitalComment on above: Satisfactory for evaluation. Endocervical and/or squamous metaplasticcells (endocervical component)are present.07-16-2022 NotePap Smear Specimen Adequacy Wilma 2022 1:29pmComment.Satisfactory for evaluation. Endocervical and/or squamous metaplasticcells (endocervical component)are present.[facility] A#[id number] HospitalComment on above:Satisfactory for evaluation. Endocervical and/or squamous metaplasticcells (endocervical component)are present.07-16-2022 NotePap Smear Specimen AdequacyApril 2022 1:29pmComment.Satisfactory for evaluation. Endocervical and/or squamous metaplasticcells (endocervical component)are present.[facility] A#[id number] HospitalComment on above:Satisfactory for evaluation. Endocervical and/or squamous metaplasticcells (endocervical component)are present.08-22-2021 NoteHNO ID: [id number] Author: Demetrio Hancock MD Service: ? Author [...] entered by the nurse and reviewed by ca Nursing Notes: Estephania Carvalho LPN 06/24/2021 3:39 [...] loss of s (more content not included)... [place]05-06-2022 Miscellaneous Notes* Telephone Encounter - Estephania Carvalho [...] was seen or not. [facility]* Estephania Carvalho LPN - [...] none Estephania Carvalho LPN documented in [facility]2022 NotePap Smear Specimen AdequacyFebruary 2021 3:20pmCommentSatisfactory for evaluation. Endocervical and/or squamous metaplasticcells (endocervical component)are present.[facility] A#[id number] Hospital Work Phone: Comment on above:Satisfactory for evaluation. Endocervical and/or squamous metaplasticcells (endocervical component)are present.05-19-2021 NotePap Smear Specimen AdequacyFebruary 2021 3:20pm CommentSatisfactory for evaluation. Endocervical and/or squamous metaplasticcells (endocervical component)are present.[facility] A#[id number] Hospital Work Phone: Comment on above:Satisfactory for evaluation. Endocervical and/or squamous metaplasticcells (endocervical component)are present.Evaluation noteNo assessment information availableLutheran Hospital Work Phone: Evaluation note* Diagnosis APPOINTMENT CANCELLED- Primary [facility] Diagnosis Onset Date Resolution Status Irritant contact dermatitis due to plant acute [facility] Work Phone: Evaluation note* Diagnosis Onset Date Resolution Status Constipation chronic Early satiety chronic Flatulence/gas pain/belching [facility] Work Phone: Evaluation note* Diagnosis Onset Date Resolution Status Climacteric acute Encounter for routine gynecological examination noneactive [facility] Work Phone: Evaluation note* Diagnosis Onset Date Resolution Status Climacteric acute Encounter for routine gynecological examination noneactive Early satiety chronic Flatulence/gas pain/belching chronic IBS (irritable bowel syndrome) [facility] Work Phone: History and physical note Author Adam Friend [facility] [facility] October 05, 2022 10:23am Note Date/Time October 05, 2022 10:2 3am [facility] Medical Records Department [address] [place] [address] History & Physical Exam 10/05/22 1023 MR#: [id number] Acct: [id number] Name: PRAFUL KAHN Rep #:[id number] : 1975 47 From: Adam Friend DO PCP: YOON RAE Status:[facility] Location: [place] [address] History and Physical Date of Admission: 10/05/22 [...] Mood: congruent mood Quality Reporting Tobacco Screening ([facility] 138) Smoking Status: Never smoker Assessment and Plan Assessment and Plan (1) Early satiety: Status: Chronic Plan: 47 yr old female with early satiety, bloating, belching, flatus, constipation. She has MS, SLE, Sjogren's, Raynaud's. Gastric emptying study, discussed possible treatments if she has gastroparesis including metoclopramide, botulinum toxin, referral to [facility] Gastroparesis Clinic EGD and colonoscopy Labs today including eval for other autoimmune conditions celiac, IBD Going to [facility] in early August Consider course of antibiotic [...] CC: YOON RAE; Adam Geiger DO~ Signed [facility] Work Phone: Progress note Author Abbe Hansen [facility] Note Date/Time January 07, 2025 1 :41pm [facility] [address], [address] [place] [address] OFFICE VISIT Date of Service: 01/07/25 MR#: [id number] Acct: [id number] Name: CRISSPRAFULAJ GERBER Rep # : [id number] : 1975 Provider: TERRY Hansen Age/Sex: 49/F Location: [facility] Status: Signed Intake Vital Signs 05/16/24 15:27 [...] 1 current occupational status: employed 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 Work Phone: Reason for referral (narrative)No reason for [facility] Work Phone: Summary Purpose Family History [...] No November 30, 015 10:54am Power of Insurance Appraiser No November 30, 2014 10:54am Advance Directive Response Recorded Date/ Time Advance Directives No August 20 4 7:35am Living Will No October 01, 2022 5 :02pm Power of Insurance Appraiser No October 01, 2022 5:02pm Advance Directive Response Recorded Date/ Time Advance Directives No August 20 4 6:35am Living Will No October 01, 2022 4 :02pm Power of Insurance Appraiser No October 01, 2022 4:02pm Advance Directive Response Recorded Date/ Time Living Will No August 17, 2023 1 0:55am Do you have a Healthcare Power of Insurance Appraiser? 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 Complaint ABNORMAL MAMMO MS Chief Complaint Consult INT LABS Reason for Visit Constipation Early satiety Flatulence/gas pain/belching Chief Complaint Consult INT LABS EARLY SATIETY SCREENING Reason for Visit Constipation Early satiety Flatulence/gas pain/belching Chief Complaint Consult INT LABS EARLY SATIETY SCREENING ABD DISTENSION Reason for Visit Constipation Early satiety Flatulence/gas pain/belching Chief Complaint 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) Reason for Visit Climacteric Encounter for routine gynecological examination Chief Complaint 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) AUB Reason for Visit Climacteric Encounter for routine gynecological examination Chief Complaint 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) AUB 6 MO FU Reason for Visit [...] section and content) DATE CREATED AUTHOR 01/04/2021 [facility] DATE CREATED AUTHOR AUTHOR'S ORGANIZ ATION 09/15/2021 [place] DATE CREATED AUTHOR AUTHOR'S ORGANIZ ATION 06/28/2023 [facility] ([place]) DATE CREATED AUTHOR AUTHOR'S ORGANIZ ATION 02/03/2025 [facility] Goals (unrecognized section and content) Goals [...] or prosecute any alcohol or drug abuse patient.[facility] the event this information is protected by the Federal Confidentiality of Alcohol and Drug Abuse Patient Records regulations: The Federal rules restrict any use of the information to criminally investigate or prosecute any alcohol or drug abuse patient.[facility] Reason for Visit (unrecogniz ed section and content) Reason Comments Appointment Cancelled Reason Comments Release Of Medical Records Care Teams (unrecognized sec tion and content) Golf Range Attendant Relationship Specialty Start Date End Date Yoon Rae MD [address] [place] [address] PCP - General 04/24/09 Golf Range Attendant Relationship Specialty Start Date End Date Yoon Rae MD [address] [place] [address] PCP - General 04/24/09 Serina Sandoval [address] [place] [id number] Referring [employer]ER 05/27/21 Team Status: Active Member Role Status Dates YOON RAE Family Provider Active Team Status: Inactive Member Role Status Dates Dr. Serina Sandoval DO Attending Provider Active Team Status: Active Member Role Status Dates YOON RAE Family Provider Active YOON RAE Primary Care Provider Active Team Status: Inactive Member Role Status Dates Cris Shafer VICE PRESIDENT [employer], VICE PRESIDENT [employer] Attending Provider Active Team Status: Inactive Member Role Status Dates RABIA TERRELL Primary Care Provider Active Crsi Shafer VICE PRESIDENT [employer], VICE PRESIDENT [employer] Attending Provider, Referrin g Provider Active Team Status: Active Member Role Status Dates RABIA TERRELL Primary Care Provider Active Cris Shafer VICE PRESIDENT [employer], VICE PRESIDENT [employer] Attending Provider Active Team Status: Inactive Member Role Status Dates RBAIA TERRELL Primary Care Provider Active Cris Shafer VICE PRESIDENT [employer], VICE PRESIDENT [employer] Attending Provider Active Team Status: Inactive Member [...] YOON RAE Family Provider Active Judith Ramos VICE PRESIDENT [employer], VICE PRESIDENT [employer] Primary Care Provider Active Team Status: Inactive Member Role Status Dates Judith Ramos VICE PRESIDENT [employer], VICE PRESIDENT [employer] Attending Provider Active Team Status: Inactive Member Role Status Dates CHARMAINE NAVAS MD Attending Provider Active Team Status: Inactive Member Role Status Dates Judith Ramos VICE PRESIDENT [employer], VICE PRESIDENT [employer] Primary Care Provider, Attendi ng Provider Active Team Status: Inactive Member Role Status Dates Judith Ramos VICE PRESIDENT [employer], VICE PRESIDENT [employer] Attending Provider, Referring Provider Active RABIA TERRELL [...] Provider Active S tart: February 29, 2024 [facility] Attending Provider Active [...] Active Member Role/Relationship Status Dates Out of [facility] Doctor Primary Care Provider Active Team [...] 15, 2024 End: July 15, 2024 Out [facility] Doctor Attending Provider Active Sta rt: July [...] 2024 End: October 16, 2024 Out of [facility] Doctor Primary Care Provider Active Start: October 16, 2024 End: October 16, 2024 Team Status: Active Member Role/Relationship Status Dates Out of [facility] Doctor Primary care physician Active Team Status: Inactive Member Role/Relationship Status Dates Out of [facility] Doctor Primary care physician Active Start: September 26, 2024 Dr. Uyen Mcguire MD Attending physician Active Start: September 26, 2024 Team Status: Inactive Member Role/Relationship Status Dates COLLETTE PARKER MD Referring Provider Active Star t: October 16, 2024 End: October 16, 2024 Dr. Adam Geiger DO Attending physician Active Start: October 16, 2024 End: October 16, 2024 Out of [facility] Doctor Primary care physician Active Start: October 16, 2024 End: October 16, 2024 Team Status: Inactive Member Role/Relationship Status Dates Out of [facility] Doctor Primary care physician Active Start: December 30, 2024 End: December 30, 2024 SHANKAR NOLEN MD Attending physician Active Start: December 30, 2024 End: December 30, 2024 SHANKAR NOLEN MD Referring Provider Active S tart: December 30, 2024 End: December 30, 2024 Team Status: Inactive Member Role/Relationship Status Dates Out of [facility] Doctor Primary care physician Active Start: January 07, 2025 End: January 07, 2025 Out of [facility] Doctor Referring Provider Active Sta rt: January 07, 2025 End: January 07, 2025 Abbe Hasnen VICE PRESIDENT [employer], VICE PRESIDENT [employer] Attending physician Active Start: January 07, 2025 [...] BE BASED ON THE PRIMARY CLINICAL RECORDS. [facility] [employer] [facility]. provides no warranty or guarantee of the accuracy or completeness of information in this document.
[2025-03-17 08:08] LABS: Immunoglobulin A 184 mg/dL (87-352); Immunoglobulin G 1217 mg/dL (586-1602); Immunoglobulin M 73 mg/dL (26-217)
== END | disposition home or self-care (01) ==
LOC: LAB 07:04
PROVIDERS: PCP Psychiatry & Neurology Sleep Medicine; Referring Provider Psychiatry & Neurology Sleep Medicine; Visit Provider Psychiatry & Neurology Sleep Medicine
DX: G35.D Multiple sclerosis, unspecified (principal)
CPT/HCPCS: 82784